=== PATIENT | male | born 1960 | race Caucasian/White ===

== ENCOUNTER 2023-03-30 13:13 | Outpatient (OUT) | payer BC, SELFPAY ==
--- NOTE | 2023-03-30 13:17 | XR_ITS ---
The [address] [address] Patient Name: ALLYSON FARMER MRN: [id number] date: 1960 Sex: M Assigned Patient Location: [facility] Current Patient Location: [facility] Accession/Order Number: [id number] Exam Date: 03/30/2023 13:25 Report Date: 03/30/2023 13:41 At the request of: TOBIN WHEATLEY Procedure: XR chest 2V EXAM: XR chest 2V HISTORY: Shortness Of Breath R06.02 COMPARISON: None. TECHNIQUE: PA and lateral views of the chest. FINDINGS: The cardiomediastinal silhouette is normal. No focal consolidation is identified. There is no pneumothorax. No pleural effusion is noted. The osseous structures are intact. XR/XR chest 2V IMPRESSION: No acute cardiopulmonary process. Electronically authenticated by: SRAVANI TERRAZAS Date: 03/30/2023 13:41
== END 2023-03-30 13:14 | disposition home or self-care (01) ==
LOC: RAD 13:13
PROVIDERS: PCP Internal Medicine; Visit Provider Internal Medicine
DX: R06.02 Shortness of breath (principal)
CPT/HCPCS: 71046

== ENCOUNTER 2023-04-20 08:28 | Outpatient (OUT) | payer BC, SELFPAY ==
--- NOTE | 2023-04-20 08:32 | CT_ITS ---
[address] [address] Patient Name: ALLYSON FARMER MRN: [id number] date: 1960 Sex: M Assigned Patient Location: CT Current Patient Location: CT Accession/Order Number: [id number] Exam Date: 04/20/2023 08:50 Report Date: 04/20/2023 09:48 At the request of: TOBIN WHEATLEY Procedure: CT chest w con EXAM: CT chest w con HISTORY: Dyspnea On Exertion R06.09, Tobacco Dependence F17.200 COMPARISON: 03/30/2023 TECHNIQUE: Axial CT images were obtained of the chest with intravenous contrast. Multiplanar reconstructions were performed. CHEST FINDINGS: Lungs/Pleura: The lungs are clear. No pleural effusion or pneumothorax. Cardiovascular: The heart is normal in size. Mild coronary artery calcifications are present. The aorta and pulmonary arteries are unremarkable. Pericardium: No effusion. Mediastinum: Unremarkable. Lymph Nodes: No lymph node enlargement by CT size criteria. Bones: No acute osseous abnormality. Soft tissues: Unremarkable. Upper Abdomen: Unremarkable. CT/CT chest w con IMPRESSION: 1. No acute abnormality of the chest. Electronically authenticated by: CYRIL KC Date: 04/20/2023 09:48
== END 2023-04-20 08:29 | disposition home or self-care (01) ==
LOC: CT 08:28
PROVIDERS: PCP Internal Medicine; Visit Provider Internal Medicine
DX: R06.09 Other forms of dyspnea (principal); F17.200 Nicotine dependence, unspecified, uncomplicated; U09.9 Post COVID-19 condition, unspecified
CPT/HCPCS: 71260; Q9967

== ENCOUNTER 2024-06-27 09:33 | Inpatient (IN) | payer BC, SELFPAY ==
[2024-06-27] VITALS (39 sets, daily range): BP systolic 147–183; BP diastolic 79–89; PULSE 68–90; TEMP 36.5–36.7; O2SAT 82–96; BMI 32.9; BMI 35.8
--- NOTE | 2024-06-27 10:04 | ECG_ITS ---
The [facility] Test Date: 2024-06-27 Pat Name: ALLYSON FARMER Department: Room: - Gender: Male Topographical Engineer: : 1960 Requested By: TOBIN WHEATLEY Order Number: [id number] Reading MD: TOBIN WHEATLEY Measurements Intervals [place] Rate: 73 P: 78 AL: 178 QRS: -34 QRSD: 98 T: 82 QT: 394 QTc: 420 Interpretive Statements 1100 Sinus rhythm 2440 Incomplete right bundle branch block 3434 Septal myocardial infarction, age undetermined 7300 Indeterminate axis 9150 abnormal ECG Electronically Signed On 06-27-2024 22:55:43 EST by TOBIN WHEATLEY
--- NOTE | 2024-06-27 10:08 | ED_ITS ---
HPI HPI - General Adult General Chief complaint: Chest Pain Stated complaint: chest hurts, sore throat Time Seen by Provider: 06/27/24 09:45 Source: patient Source information: Mode of arrival: Wheelchair Limitations: no limitations History of Present Illness HPI narrative: The patient is a very pleasant 64-year-old male who presents to the emergency department his secondary to a cough. He has a known past medical history of hypercholesterolemia, COPD, and tobacco abuse. He presents today for chest pain. Chest pain has been present for approximately 3 days. His symptoms originally started with a sore throat and has progressed to a cough associated with chest pain. He feels constriction when he tries to take a deep breath. Exertion makes it worse. Nothing makes it better. He is trying Mucinex at home without any relief. Patient has no known history of coronary artery disease. He does not have hypertension or diabetes. Patient does not have any nausea or diaphoresis. No radiation of the pain which appears to be all over the anterior chest wall. It is mild to moderate in sensation. Coughing makes the pain more constricting. Patient does still smoke. Sent him for COVID yesterday and today and both times they were negative. Related Data Home Medications ?Medication ?Instructions ?Recorded ?Confirmed doxycycline hyclate 100 mg capsule 100 mg PO Q12H 06/27/24 06/27/24 esomeprazole magnesium 40 mg 40 mg PO Q24H 06/27/24 06/27/24 capsule,delayed release fluticasone 250 mcg-salmeterol 50 1 inh inhalation Q12H 06/27/24 06/27/24 mcg/dose blistr powdr for inhalation tamsulosin 0.4 mg capsule 0.4 mg PO Q24H 06/27/24 06/27/24 Allergies Allergy/AdvReac Type Severity Reaction Status Date / Time ciprofloxacin (From Cipro) AdvReac Intermediate Unknown Verified 06/27/24 09:50 moxifloxacin (From Avelox) AdvReac Intermediate Unknown Verified 06/27/24 09:50 Opioid HPI Opioid Management Most Recent Opioid Data: Last Pain Scale 1 06/27/24 12:01 06/27/24 Last ED Pain Assessment 06/27/24 10:01 Last MAR Pain Assessment 06/27/24 10:21 Review of Systems ROS Narrative 10 Systems were reviewed, and unless not ed in the HPI, all other systems are reviewed, unremarkable, or noncontributory. PFSH PFSH Social History Little interest or pleasure in doing things: not at all Feeling down, depressed, or hopeless: not at all Exam Narrative Exam Narrative: Time Seen: 09:45 Vital Signs: [Per nurse's notes.] General: [Alert oriented. Nontoxic. No acute distress. Skin: [Warm, dry, no rash.] Head: [Normocephalic, atraumatic.] Neck: [Supple, trachea midline. No cervical lymphadenopathy Eye: [Pupils are equal, round and reactive to light, extraocular movements are intact, normal conjunctiva.] Ears, nose, mouth and throat: oral mucosa moist. No evidence of posterior oropharyngeal erythema, edema, or exudate. Cardiovascular: [Regular rate and rhythm, no murmur.] Respiratory: Stational dyspnea. He has poor lung sounds in the bases. He has an expiratory wheezing in the left lung huerta. Chest wall: [No tenderness, no deformity.] Gastrointestinal: [Soft, nontender, non distended, normal bowel sounds. I MSK: 5 out of 5 muscle strength x 4 extremities no calf pain or edema Lymphatics: [No lymphadenopathy.] Psychiatric: [Cooperative, appropriate mood & affect.] Neurological: [Alert and oriented to person, place, time, and situation, no focal neurological deficit observed.] Constitutional Vital Signs, click to edit/add: Last Vital Signs Temp 97.7 F 06/27/24 09:45 Pulse 72 06/27/24 13:00 Resp 17 06/27/24 13:00 BP 161/85 H 06/27/24 13:00 Pulse Ox 93 L 06/27/24 13:00 O2 Del Method Nasal Cannula 06/27/24 12:01 O2 Flow Rate 1 06/27/24 12:01 Course Course Hospital Course: 64-year-old gentleman presents to the emerged part with his for evaluation of cough and chest pain. Patient has been ill for approximately 3 days. He has no known history of coronary artery disease and no PE risk factors. Patient's had a subjective fever this morning associated with an occasionally productive cough with yellow sputum. He was driven to the emergency department with his who provides additional history. Patient does have a known history of COPD and continues to smoke. Upon seeing the patient, I was concerned that the patient may have sepsis since he meets criteria. Therefore, I ordered the sepsis 1 bundle. Patient received Rocephin and azithromycin antibiotic therapy. He also received a nebulized breathing treatment and magnesium 2 g IV piggyback with a liter normal saline bolus. Reevaluation(s) Reevaluation #1: Reevaluated the patient. He does feel that the breathing treatment did help him. He no longer feels like his chest is tight since the treatment. The patient states he feels a little better. tells me that when he is laying that he seems to be doing okay as when he gets up and ambulates that there is a problem. Even having said that at rest he was 86% when he came to the emergency department. The patient is still receiving his antibiotic therapy and fluids. Will continue to monitor the patient but I did tell the patient that my inclination was to admit the patient. Patient does have some reservation about being admitted. His tells me at 5 AM he woke her up and told her he thought she was going to . I am hopeful that the patient will agree to be admitted given his present presentation. Time: 11:24 Reevaluation #2: I chatted again with the patient and his . All of his antibiotics and fluids are completed. Patient still requiring nasal cannula oxygen. Patient is finally consenting to staying in the hospital. The hospitalist is paged. Time: 12:58 Consultations Consultation #1: Hospitalist Dr. Johnson about the condition of this patient. He agreed to accept. Time: 13:10 Vital Signs Vital signs: Vital Signs Temperature 97.7 F 06/27/24 09:45 Pulse Rate 79 06/27/24 09:45 Respiratory Rate 18 06/27/24 09:45 Blood Pressure 183/87 H 06/27/24 09:45 Pulse Oximetry 86 L 06/27/24 09:45 Oxygen Delivery Method Room Air 06/27/24 09:45 Temperature 97.7 F 06/27/24 09:45 Pulse Rate 72 06/27/24 13:00 Respiratory Rate 17 06/27/24 13:00 Blood Pressure 161/85 H 06/27/24 13:00 Pulse Oximetry 93 L 06/27/24 13:00 Oxygen Delivery Method Nasal Cannula 06/27/24 12:01 Oxygen Delivery Flow Rate 1 06/27/24 12:01 Medical Decision Making MDM Narrative Medical decision making narrative: The patient is a very pleasant 64-year-old male who presents to the emergency department his secondary to a cough. He has a known past medical history of hypercholesterolemia, COPD, and tobacco abuse. He presents today for chest pain. Chest pain has been present for approximately 3 days. His symptoms originally started with a sore throat and has progressed to a cough associated with chest pain. He feels constriction when he tries to take a deep breath. Exertion makes it worse. Nothing makes it better. He is trying Mucinex at home without any relief. Patient has no known history of coronary artery disease. He does not have hypertension or diabetes. Patient does not have any nausea or diaphoresis. No radiation of the pain which appears to be all over the anterior chest wall. It is mild to moderate in sensation. Coughing makes the pain more constricting. Patient does still smoke. Sent him for COVID yesterday and today and both times they were negative. History of Latent TB. He is not on any type of immune therapy or immune suppressive agents. There was no evidence of any type of TB on x-ray. The patient was given Solu-Medrol, magnesium, IV fluids, Rocephin, and Zith romax. The patient was reassessed and the patient did have some mild improvement but still is necessitating the need of nasal cannula oxygen and remains hypoxic. Patient's chest x-ray was negative. Patient's viral swabs were negative. I did not repeat the COVID given that the patient had 2 negative COVID swabs in less than 24 hours prior to arrival. Patient at this time is going to be admitted for COPD exacerbation. Patient does meet sepsis criteria and also is hypoxic. Differential Diagnosis Differential Diagnosis: Sepsis, pneumonia, COPD exacerbation, bronchitis, RSV, influenza, COVID Medical Records Medical records reviewed: Yes I reviewed the patient's medical records Lab Data Lab results reviewed: Yes I reviewed the patient's lab results Labs: Lab Results 06/27/24 06/27/24 Range/Units 09:55 11:47 WBC 13.1 H (4.0-11.0) 10^3/uL RBC 5.21 (4.70-6.10) 10^6/uL Hgb 16.8 (14.0-18.0) g/dL Hct 49.4 (42.0-54.0) % MCV 94.8 H (80.0-94.0) fL MCH 32.2 (25.9-34.0) pg MCHC 34.0 (29.9-35.2) g/dL RDW 14.6 (11.0-15.0) % Plt Count 234 (150-450) 10^3/uL MPV 9.8 (9.5-13.5) fL Neut % (Auto) 79.4 H (43.0-75.0) % Lymph % (Auto) 9.3 L (20.5-60.0) % [place] % (Auto) 9.2 (1.7-12.0) % Eos % (Auto) 1.1 (0.9-7.0) % Baso % (Auto) 0.7 (0.2-2.0) % Neut # (Auto) 10.4 H (1.4-6.5) 10^3/uL Lymph # (Auto) 1.2 (1.2-3.8) 10^3/uL [place] # (Auto) 1.2 H (0.3-0.8) 10^3/uL Eos # (Auto) 0.2 (0.0-0.7) 10^3/uL Baso # (Auto) 0.1 (0.0-0.1) 10^3/uL Abs Immat Gran (auto) 0.04 H (0.00-0.03) 10^3/uL Imm/Tot Granulo (auto) 0.3 (0.0-0.5) % Sodium 140 (136-145) mmol/L Potassium 4.6 (3.5-5.1) mmol/L Chloride 105 (98-107) mmol/L Carbon Dioxide 25.9 (21.0-32.0) mmol/L Anion Gap 13.7 BUN 17.0 (7.0-18.0) mg/dL Creatinine 1.20 (0.70-1.30) mg/dL Est GFR ( Amer) >60 (>=60 mL/min/1.73m^2) Est GFR (Non-Af Amer) >60 (>=60 mL/min/1.73m^2) BUN/Creatinine Ratio 14.2 Glucose 118 H (74-106) mg/dL Lactate 1.4 (0.4-2.0) mmol/L Calcium 9.3 (8.5-10.1) mg/dL Magnesium 2.2 (1.8-2.4) mg/dL Total Bilirubin 0.5 (0.2-1.0) mg/dL AST 18 (15-37) U/L ALT 22 (16-63) U/L Alkaline Phosphatase 74 (46-116) U/L Troponin I High Sens 10.4 (4.0-76.1) pg/mL Total Protein 7.6 (6.4-8.2) g/dL Albumin 3.8 (3.4-5.0) g/dL Globulin 3.8 g/dL Albumin/Globulin Ratio 1.0 Influenza Type A Ag Negative Influenza Type B Ag Negative RSV Antigen Not detected (NOT DETECTE) Imaging Data Chest x-ray: Attestation: I have reviewed the pertinent imaging results. Radiologist's impression: ITS Impressions Chest X-Ray 06/27/24 10:35 Impression: No radiographic evidence of acute cardiopulmonary process. Electronically authenticated by: LAWRENCE JAIMES Date: 06/27/2024 11:26 ECG Data Attestation: I personally reviewed and interpreted this ECG as follows: (Sinus rhythm with a ventricular to 73 bpm. The MD interval and QRS duration are normal. QTc is not prolonged. Poor R wave progression in the septal leads. No evidence of ST segment elevation or depression suggestive of infarction or ischemia. Summary: Nonspecific EKG.) Smoking Cessation Patient Acknowledges Need for Cessation: Yes Discharge Plan Discharge Chief Complaint: Chest Pain Clinical Impression: Sepsis, COPD exacerbation, Hypoxia Patient Disposition: Admitted As Inpatient Time of Disposition Decision: 12:54 Condition: Fair
[2024-06-27] MEDS: KETOROLAC TROMETHAMINE 30 MG/ML VIAL 15 MG IVP (10:21)
[2024-06-27] MEDS: 0.9 % SODIUM CHLORIDE 1,000 ML 1000 ML IV (10:21)
--- NOTE | 2024-06-27 10:35 | XR_ITS ---
The [address] [address] Patient Name: ALLYSON FARMER MRN: [id number] date: 1960 Sex: M Assigned Patient Location: ER Current Patient Location: ER Accession/Order Number: [id number] Exam Date: 06/27/2024 10:20 Report Date: 06/27/2024 11:26 At the request of: ZURI MAJOR Procedure: XR chest 1V EXAM: XR chest 1V HISTORY: cough, chest pain COMPARISON: 04/20/2023 TECHNIQUE: Chest X-ray AP, 1 view FINDINGS: Support devices: None. Lungs/pleura: No consolidation, effusion, or pneumothorax. Heart and mediastinum: Normal contours. Bones: No acute abnormality identified. XR/XR chest 1V Impression: No radiographic evidence of acute cardiopulmonary process. Electronically authenticated by: LAWRENCE JAIMES Date: 06/27/2024 11:26
[2024-06-27 10:36] LABS: Basophils Absolute Auto 0.1 10^3/uL (0.0-0.1); Basophils Percent Auto 0.7 % (0.2-2.0); Eosinophils Absolute Auto 0.2 10^3/uL (0.0-0.7); Eosinophils Percent Auto 1.1 % (0.9-7.0); Hematocrit 49.4 % (42.0-54.0); Hemoglobin 16.8 g/dL (14.0-18.0); Immature Granulocytes Abs Auto 0.04 10^3/uL (0.00-0.03); Immature Granulocytes Pct Auto 0.3 % (0.0-0.5); Lymphocytes Absolute Auto 1.2 10^3/uL (1.2-3.8); Lymphocytes Percent Auto 9.3 % (20.5-60.0); Mean Corpuscular Hemoglobin 32.2 pg (25.9-34.0); Mean Corpuscular Volume 94.8 fL (80.0-94.0); Mean Platelet Volume 9.8 fL (9.5-13.5); Monocytes Absolute Auto 1.2 10^3/uL (0.3-0.8); Monocytes Percent Auto 9.2 % (1.7-12.0); Neutrophils Absolute Auto 10.4 10^3/uL (1.4-6.5); Neutrophils Percent Auto 79.4 % (43.0-75.0); Platelet Count 234 10^3/uL (150-450); Red Blood Count 5.21 10^6/uL (4.70-6.10); Red Cell Distribution Width 14.6 % (11.0-15.0); White Blood Count 13.1 10^3/uL (4.0-11.0)
[2024-06-27] MEDS: IPRATROPIUM/ALBUTEROL SULFATE 3 ML AMPUL.NEB IH ×3 (10:45→22:19)
[2024-06-27] MEDS: CEFTRIAXONE 1,000 MG in 0.9 % SODIUM CHLORIDE 50 ML 100 MG IV (10:47)
[2024-06-27] MEDS: METHYLPREDNISOLONE SOD SUCC PF 125 MG/2 ML VIAL IVP (10:47)
[2024-06-27 10:50] LABS: Anion Gap 13.7
[2024-06-27 10:52] LABS: Alanine Aminotransferase 22 U/L (16-63); Albumin Level 3.8 g/dL (3.4-5.0); Alkaline Phosphatase 74 U/L (46-116); Aspartate Amino Transferase 18 U/L (15-37); BUN Creatinine Ratio 14.2; Bilirubin Total 0.5 mg/dL (0.2-1.0); Calcium 9.3 mg/dL (8.5-10.1); Carbon Dioxide 25.9 mmol/L (21.0-32.0); Chloride 105 mmol/L (98-107); Estimated GFR (African America >60 (>=60 mL/min/1.73m^2); Estimated GFR (Non-African Ame >60 (>=60 mL/min/1.73m^2); Globulin 3.8 g/dL; Glucose 118 mg/dL (74-106); Lactate/Lactic Acid 1.4 mmol/L (0.4-2.0); Magnesium 2.2 mg/dL (1.8-2.4); Potassium 4.6 mmol/L (3.5-5.1); Sodium 140 mmol/L (136-145); Total Protein 7.6 g/dL (6.4-8.2); Troponin I High Sensitivity 10.4 pg/mL (4.0-76.1)
[2024-06-27] MEDS: AZITHROMYCIN 500 MG in 0.9 % SODIUM CHLORIDE 250 ML 250 MG IV (11:17)
[2024-06-27 12:22] LABS: Influenza Virus A Antigen Negative; Influenza Virus B Antigen Negative; Internal Control Within Normal Limits; Respiratory Syncytial Virus Not Detected (NOT DETECTE)
[2024-06-27 12:23] LABS: Internal Control Within Normal Limits
--- NOTE | 2024-06-27 15:23 | PM.HP ---
HPI H&P: HPI History of Present Illness Chief complaint: chest hurts, sore throat, COPD EXACERBATION Narrative: 64-year-old male with history of COPD presented to ER with 1 day history of productive cough, shortness of breath with wheezing. He was in his usual state of health before he got sick. He denies fever, chills or sick contacts. He has not had any recent COPD exacerbation. Uses Wixela for COPD. In ER, he was found to have increased work of breathing with tachypnea and hypoxia with pulse ox as low as 85%. He tested negative for influenza and RSV. He had 2 negative home test for COVID. No evidence of consolidation or pneumonia on chest x-ray. He was treated with IV Solu-Medrol, inhaled DuoNebs and empirical IV antibiotics -IV Rocephin and azithromycin. Patient admitted for COPD exacerbation and acute respiratory failure with hypoxia. Opioid HPI Opioid Management Most Recent Pain and Opioid Data: Last Pain Scale 1 06/27/24 12:01 06/27/24 Last Pain Assessment 06/27/24 14:55 Last ED Pain Assessment 06/27/24 10:01 Last MAR Pain Assessment 06/27/24 10:21 Last ORT Total Score 0 06/27/24 13:47 06/27/24 Last ORT Risk Category Low Risk 06/27/24 13:47 06/27/24 Review of Systems ROS Status of ROS 10 or more systems reviewed and unremarkable except as noted in history and below [facility] Medical History (Updated 06/27/24 @ 15:24 by Shaikh Alex MD) COPD (chronic obstructive pulmonary disease) ?J44.9 - Chronic obstructive pulmonary disease, unspecified (ICD-10) Diarrhea ?R19.7 - Diarrhea, unspecified (ICD-10) Constipation ?K59.00 - Constipation, unspecified (ICD-10) Surgical History (Updated 06/27/24 @ 14:08 by Alexia Duarte) History of appendectomy ?Z90.49 - Acquired absence of other specified parts of digestive tract (ICD-10) Family History (Updated 06/27/24 @ 14:52 by Alexia Duarte) Mother Family history of colon cancer Father Family history of leukemia Other Family history of cancer Family history of stroke Social History (Updated 06/27/24 @ 14:55 by Alexia Duarte) Within the past year, how often did you have a drink containing alcohol: 2-3 times a week Within the past year, how many standard drinks containing alcohol did you have on a typical day: 5 or 6 Within the past year, how often did you have six or more drinks on one occasion: weekly Total score: 7 Score interpretation: A score of 4 or more indicates drinking is likely to affect patient's safety. 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 Highest level of school completed/degree received: high school graduate Do you want help with school or training: No Are you now , , , , never or living with a partner: In a typical week, how many times do you talk on the telephone with family, friends, or neighbors: 3 or more times per week How often do you get together with friends or relatives: 3 or more times per week How often do you attend sikh or mormonism services: never Do you belong to any clubs or organizations such as sikh groups unions, [employer] or athletic groups, or school groups: no Total score: 2 Score interpretation: A score of greater than or equal to 2 indicates the lowest level of social isolation. Little interest or pleasure in doing things: not at all Feeling down, depressed, or hopeless: several days Feel stressed/tense/nervous/anxious/difficulty sleeping: not at all Due to disability, difficulty making decisions: No Do you think of yourself as: straight/heterosexual Gender Identity: male Meds Home Medications and Allergies Home Medications ?Medication ?Instructions ?Recorded ?Confirmed ?Type doxycycline hyclate 100 mg capsule 100 mg PO Q12H 06/27/24 06/27/24 History esomeprazole magnesium 40 mg 40 mg PO Q24H 06/27/24 06/27/24 History capsule,delayed release fluticasone 250 mcg-salmeterol 50 1 inh inhalation Q12H 06/27/24 06/27/24 History mcg/dose blistr powdr for inhalation tamsulosin 0.4 mg capsule 0.4 mg PO Q24H 06/27/24 06/27/24 History Allergies Allergy/AdvReac Type Severity Reaction Status Date / Time ciprofloxacin (From Cipro) AdvReac Intermediate Unknown Verified 06/27/24 09:50 moxifloxacin (From Avelox) AdvReac Intermediate Unknown Verified 06/27/24 09:50 Exam Constitutional Vital Signs, click to edit/add: Last Vital Signs Temp 98.1 F 06/27/24 13:47 Pulse 77 06/27/24 14:00 Resp 20 06/27/24 13:47 BP 160/85 H 06/27/24 13:47 Pulse Ox 90 L 06/27/24 13:47 O2 Del Method Nasal Cannula 06/27/24 13:47 O2 Flow Rate 2 06/27/24 13:47 Documenting provider has reviewed patient's vital signs: yes Common normals: oriented x3 General appearance: cooperative Nutritional appearance: obese HENMT Common normals: normocephalic and head/scalp atraumatic Head and scalp: normocephalic and atraumatic Eye Common normals: conjunctivae normal and no scleral icterus Conjunctiva: conjunctiva(e) normal Respiratory Common normals: normal respiratory effort Effort & inspection: able to speak in complete sentences and tachypneic Auscultation: wheezes expiratory wheezes and bronchial breath sounds Cardio Common normals: regular rate, S1 normal heart sound and S2 normal heart sound Rate: regular rate Heart sounds: S1 normal and S2 normal GI Common normals: Normal to inspection, nondistended, normoactive bowel sounds present, soft to palpation, non-tender and no hepatosplenomegaly Palpation: soft and no hepatosplenomegaly Extremity Common normals: no clubbing, cyanosis or edema Neuro Common normals: oriented x3, moves all extremities and no focal motor deficits Psych Common normals: mental status grossly normal, denies hallucinations, denies homicidal ideation and denies suicidal ideation Results Labs Labs: Short CBC 06/27/24 Range/Units 09:55 WBC 13.1 H (4.0-11.0) 10^3/uL Hgb 16.8 (14.0-18.0) g/dL Hct 49.4 (42.0-54.0) % Plt Count 234 (150-450) 10^3/uL BMP 06/27/24 09:55 Sodium 140 Potassium 4.6 Chloride 105 Carbon Dioxide 25.9 BUN 17.0 Creatinine 1.20 Glucose 118 H Calcium 9.3 Liver Function 06/27/24 Range/Units 09:55 Total Bilirubin 0.5 (0.2-1.0) mg/dL AST 18 (15-37) U/L ALT 22 (16-63) U/L Alkaline Phosphatase 74 (46-116) U/L Albumin 3.8 (3.4-5.0) g/dL Assessment and Plan Assessment and Plan (1) COPD exacerbation: Assessment and Plan: COPD exacerbation likely due to viral illness. Start patient on IV Solu-Medrol 40 3 times daily along with inhaled DuoNebs. No evidence of pneumonia on chest x-ray. Will order azithromycin for COPD exacerbation. (2) Acute respiratory failure with hypoxia: Assessment and Plan: 85% on room air. Doing well on 2 L of oxygen via nasal cannula. Secondary to COPD exacerbation. Does not use oxygen at home. Wean off oxygen as heart rate. (3) Leukocytosis: Assessment and Plan: Leukocytosis likely reactive. No evidence of pneumonia on chest x-ray. Monitor closely for now. On azithromycin for COPD exacerbation. Received IV Rocephin in ER for presumed bacterial pneumonia Qualifiers: Leukocytosis type: leukemoid reaction Qualified Code(s): D72.823 - Leukemoid reaction Plan Continue with IV Solu-Medrol, inhaled DuoNebs. Wean off oxygen as tolerated. Admitted for overnight observation.
[2024-06-27] MEDS: LACTATED RINGER'S SOLUTION 1,000 ML 125 ML IV ×2 (15:54→23:56)
[2024-06-27] MEDS: ENOXAPARIN SODIUM 40 MG/0.4 ML SYRINGE SUBQ (15:54)
[2024-06-27] MEDS: METHYLPREDNISOLONE SOD SUCC PF 40 MG/ML VIAL IVP (17:31)
--- NOTE | 2024-06-27 22:33 | RESP.RT ---
increased to 4 lpm
[2024-06-28] VITALS (21 sets, daily range): BP systolic 142–164; BP diastolic 69–87; PULSE 68–82; TEMP 36.7–36.9; O2SAT 90–95; BMI 35.8
[2024-06-28] MEDS: METHYLPREDNISOLONE SOD SUCC PF 40 MG/ML VIAL IVP ×3 (03:36→17:55)
[2024-06-28] MEDS: IPRATROPIUM/ALBUTEROL SULFATE 3 ML AMPUL.NEB IH ×4 (04:06→22:25)
[2024-06-28 06:42] LABS: Basophils Percent Auto 0.1 % (0.2-2.0); Eosinophils Percent Auto 0.1 % (0.9-7.0); Hematocrit 46.3 % (42.0-54.0); Hemoglobin 15.6 g/dL (14.0-18.0); Immature Granulocytes Abs Auto 0.11 10^3/uL (0.00-0.03); Immature Granulocytes Pct Auto 0.6 % (0.0-0.5); Lymphocytes Absolute Auto 0.8 10^3/uL (1.2-3.8); Lymphocytes Percent Auto 4.3 % (20.5-60.0); Mean Corpuscular HGB Conc 33.7 g/dL (29.9-35.2); Mean Corpuscular Hemoglobin 31.7 pg (25.9-34.0); Mean Corpuscular Volume 94.1 fL (80.0-94.0); Monocytes Percent Auto 5.9 % (1.7-12.0); Neutrophils Absolute Auto 15.4 10^3/uL (1.4-6.5); Platelet Count 219 10^3/uL (150-450); Red Blood Count 4.92 10^6/uL (4.70-6.10); Red Cell Distribution Width 14.6 % (11.0-15.0); White Blood Count 17.3 10^3/uL (4.0-11.0)
[2024-06-28 07:03] LABS: Alanine Aminotransferase 20 U/L (16-63); Albumin Globulin Ratio 0.9; Albumin Level 3.3 g/dL (3.4-5.0); Alkaline Phosphatase 63 U/L (46-116); Anion Gap 14.4; Aspartate Amino Transferase 19 U/L (15-37); BUN Creatinine Ratio 13.4; Bilirubin Total 0.3 mg/dL (0.2-1.0); Calcium 8.8 mg/dL (8.5-10.1); Carbon Dioxide 23.3 mmol/L (21.0-32.0); Chloride 109 mmol/L (98-107); Estimated GFR (African America >60 (>=60 mL/min/1.73m^2); Estimated GFR (Non-African Ame >60 (>=60 mL/min/1.73m^2); Globulin 3.5 g/dL; Glucose 135 mg/dL (74-106); Potassium 4.7 mmol/L (3.5-5.1); Sodium 142 mmol/L (136-145); Total Protein 6.8 g/dL (6.4-8.2)
[2024-06-28] MEDS: LACTATED RINGER'S SOLUTION 1,000 ML 125 ML IV (08:04)
--- NOTE | 2024-06-28 08:05 | CT_ITS ---
[address] [address] Patient Name: ALLYSON FARMER MRN: [id number] date: 1960 Sex: M Assigned Patient Location: MS Current Patient Location: MS Accession/Order Number: [id number] Exam Date: 06/28/2024 08:50 Report Date: 06/28/2024 10:13 At the request of: SHAIKH BEATRIZ Procedure: CT chest wo con EXAMINATION: CT chest wo con HISTORY: Pneumonia COMPARISON: No relevant comparison available. TECHNIQUE: Multi-planar CT images were created with IV contrast. Axial, Coronal, and Sagittal images. Dose reduction techniques were achieved by using automated exposure control and/or adjustment of mA and/or kV according to patient size and/or use of iterative reconstruction technique. FINDINGS: LUNGS: Bilateral scattered groundglass infiltrates throughout both lungs with an upper lobe predominance PLEURA: No mass, effusion, or pneumothorax. VASCULATURE: No abnormality. IDALIA: No mass or adenopathy. MEDIASTINUM: No mass or adenopathy. CARDIAC: No enlargement or pericardial effusion Coronary arteries: Mild calcifications AORTA: No aortic aneurysm CHEST WALL: No mass or axillary adenopathy. BONES: No bone lesion or fracture. LIMITED ABDOMEN: No suspicious findings. Limited images of the upper abdomen. OTHER: Negative. CT/CT chest wo con IMPRESSION: Mild multifocal bilateral pneumonia Electronically authenticated by: TERRA GUNTER Date: 06/28/2024 10:13
[2024-06-28] MEDS: AZITHROMYCIN 250 MG TABLET 500 MG PO (09:50)
[2024-06-28] MEDS: ENOXAPARIN SODIUM 40 MG/0.4 ML SYRINGE SUBQ (09:50)
--- NOTE | 2024-06-28 10:30 | CM.NOTE ---
Rounds made with Dr. Johnson. Dr. Johnson reviews plan of care-CT chest ordered, lab results and need for increased oxygen. No plan for discharge today.
[2024-06-28] MEDS: CEFTRIAXONE 1,000 MG in 0.9 % SODIUM CHLORIDE 50 ML 100 MG IV (10:34)
--- NOTE | 2024-06-28 10:47 | PM.IMPN1 ---
Progress Note: A&P Assessment and Plan (1) COPD exacerbation: Assessment and Plan: Worse today, on 4 L O2. C/w solumedrol, duonebs. C/w OPEP. (2) Acute respiratory failure with hypoxia: Assessment and Plan: Worse today. O2 requirement increased to [address] chest - multifocal pna seen on CT. Started on rocephin. already on azithromycin (3) Leukocytosis: Assessment and Plan: Worse, but this could be due to steroids too. Started on IVF abx for multifocal pna. Qualifiers: Leukocytosis type: leukemoid reaction Qualified Code(s): D72.823 - Leukemoid reaction (4) Multifocal pneumonia: Assessment and Plan: Multifocal pna on CT chest. Started on IV rocephin. C/w azithromycin Plan Changed to inpatient, as patient's clinical status worsened, with increased O2 requirement, after an initial period of observation and treatment with Abx, steroids and duonebs. Internal Medicine - PN: Subj Subjective Interval history: Seen and examined. Patient worse today, on 4 L O2. Pulse Ox was 88,89 on 2 L. He reports he is coughing more and his cough is productive with green sputum Exam Constitutional Vital Signs, click to edit/add: Last Vital Signs Temp 98.1 F 06/28/24 07:48 Pulse 76 06/28/24 10:00 Resp 18 06/28/24 07:48 BP 155/73 H 06/28/24 07:48 Pulse Ox 93 L 06/28/24 07:48 O2 Del Method Nasal Cannula 06/28/24 07:48 O2 Flow Rate 4 06/28/24 04:06 FiO2 4 06/28/24 07:48 Documenting provider has reviewed patient's vital signs: yes Common normals: oriented x3 General appearance: cooperative Nutritional appearance: obese Respiratory Common normals: normal respiratory effort Effort & inspection: able to speak in complete sentences and tachypneic Auscultation: wheezes expiratory wheezes and bronchial breath sounds Cardio Common normals: regular rate, S1 normal heart sound and S2 normal heart sound Rate: regular rate Heart sounds: S1 normal and S2 normal Extremity Common normals: no clubbing, cyanosis or edema Neuro Common normals: oriented x3, moves all extremities and no focal motor deficits Psych Common normals: mental status grossly normal, denies hallucinations, denies homicidal ideation and denies suicidal ideation Internal Medicine - PN: Obj Da Labs Labs: Laboratory Results - last 24 hr 06/27/24 06/27/24 06/28/24 09:55 11:47 06:02 WBC 17.3 H RBC 4.92 Hgb 15.6 Hct 46.3 MCV 94.1 H MCH 31.7 MCHC 33.7 RDW 14.6 Plt Count 219 MPV 10.0 Neut % (Auto) 89.0 H Lymph % (Auto) 4.3 L [place] % (Auto) 5.9 Eos % (Auto) 0.1 L Baso % (Auto) 0.1 L Neut # (Auto) 15.4 H Lymph # (Auto) 0.8 L [place] # (Auto) 1.0 H Eos # (Auto) 0.0 Baso # (Auto) 0.0 Abs Immat Gran (auto) 0.11 H Imm/Tot Granulo (auto) 0.6 H Sodium 140 142 Potassium 4.6 4.7 Chloride 105 109 H Carbon Dioxide 25.9 23.3 Anion Gap 13.7 14.4 BUN 17.0 15.0 Creatinine 1.20 1.12 Est GFR ( Amer) >60 >60 Est GFR (Non-Af Amer) >60 >60 BUN/Creatinine Ratio 14.2 13.4 Glucose 118 H 135 H Lactate 1.4 Calcium 9.3 8.8 Magnesium 2.2 Total Bilirubin 0.5 0.3 AST 18 19 ALT 22 20 Alkaline Phosphatase 74 63 Troponin I High Sens 10.4 Total Protein 7.6 6.8 Albumin 3.8 3.3 L Globulin 3.8 3.5 Albumin/Globulin Ratio 1.0 0.9 Influenza Type A Ag Negative Influenza Type B Ag Negative RSV Antigen Not detected
[2024-06-28] MEDS: LISINOPRIL/HYDROCHLOROTHIAZIDE 20-12.5 MG TABLET 1 TAB PO (16:07)
[2024-06-28] MEDS: TEMAZEPAM 15 MG CAPSULE PO (19:10)
[2024-06-29] VITALS (15 sets, daily range): BP systolic 132–137; BP diastolic 73–77; PULSE 64–84; TEMP 36.9; O2SAT 83–96
[2024-06-29] MEDS: METHYLPREDNISOLONE SOD SUCC PF 40 MG/ML VIAL IVP ×2 (03:23→09:34)
[2024-06-29] MEDS: IPRATROPIUM/ALBUTEROL SULFATE 3 ML AMPUL.NEB IH ×2 (04:18→10:08)
--- NOTE | 2024-06-29 04:24 | RESP.RT ---
Titrated to 2 lpm
[2024-06-29 06:08] LABS: Basophils Percent Auto 0.1 % (0.2-2.0); Eosinophils Percent Auto 0.1 % (0.9-7.0); Hematocrit 43.3 % (42.0-54.0); Hemoglobin 14.6 g/dL (14.0-18.0); Immature Granulocytes Abs Auto 0.06 10^3/uL (0.00-0.03); Immature Granulocytes Pct Auto 0.4 % (0.0-0.5); Lymphocytes Absolute Auto 1.1 10^3/uL (1.2-3.8); Lymphocytes Percent Auto 7.4 % (20.5-60.0); Mean Corpuscular HGB Conc 33.7 g/dL (29.9-35.2); Mean Platelet Volume 10.2 fL (9.5-13.5); Monocytes Absolute Auto 1.1 10^3/uL (0.3-0.8); Monocytes Percent Auto 6.9 % (1.7-12.0); Neutrophils Absolute Auto 13.2 10^3/uL (1.4-6.5); Neutrophils Percent Auto 85.1 % (43.0-75.0); Platelet Count 209 10^3/uL (150-450); Red Blood Count 4.56 10^6/uL (4.70-6.10); White Blood Count 15.5 10^3/uL (4.0-11.0)
[2024-06-29 06:28] LABS: Alanine Aminotransferase 23 U/L (16-63); Albumin Globulin Ratio 0.9; Albumin Level 3.3 g/dL (3.4-5.0); Alkaline Phosphatase 59 U/L (46-116); Anion Gap 12.2; Aspartate Amino Transferase 17 U/L (15-37); BUN Creatinine Ratio 18.4; Bilirubin Total 0.3 mg/dL (0.2-1.0); Calcium 9.2 mg/dL (8.5-10.1); Carbon Dioxide 26.4 mmol/L (21.0-32.0); Chloride 106 mmol/L (98-107); Estimated GFR (African America >60 (>=60 mL/min/1.73m^2); Estimated GFR (Non-African Ame >60 (>=60 mL/min/1.73m^2); Globulin 3.6 g/dL; Glucose 128 mg/dL (74-106); Potassium 4.6 mmol/L (3.5-5.1); Sodium 140 mmol/L (136-145); Total Protein 6.9 g/dL (6.4-8.2)
[2024-06-29] MEDS: AZITHROMYCIN 250 MG TABLET 500 MG PO (08:34)
[2024-06-29] MEDS: LISINOPRIL/HYDROCHLOROTHIAZIDE 20-12.5 MG TABLET 1 TAB PO (08:35)
[2024-06-29] MEDS: FUROSEMIDE 40 MG/4 ML VIAL IVP (08:35)
[2024-06-29] MEDS: ENOXAPARIN SODIUM 40 MG/0.4 ML SYRINGE SUBQ (08:35)
--- NOTE | 2024-06-29 09:57 | SWNOTE1 ---
SW spoke to case management and pt will need home oxygen. SW to see what company pt would like to use.
--- NOTE | 2024-06-29 10:41 | P.DS_ITS ---
DS: Providers Provider Date of admission: 06/28/24 10:50 Primary care physician: Mark Quick DO Admitting clinician: Shaikh Alex Attending physician on admission: Shaikh Alex Consults: 06/27/24 14:10 Physical Therapy Eval and Treat Routine Reason for consultation: Ambulatory dysfunction/weakness Attending physician on discharge: Shaikh Alex Discharging clinician: Shaikh Alex Anticipated date of discharge: 06/29/24 DS: Diagnosis Discharge Diagnosis (1) COPD exacerbation: (2) Acute respiratory failure with hypoxia: (3) Leukocytosis: Qualifiers: Leukocytosis type: leukemoid reaction Qualified Code(s): D72.823 - Leukemoid reaction (4) Multifocal pneumonia: DS: Summary Hospital Course Hospital Course: 64-year-old male with history of COPD presented to ER with 1 day history of productive cough, shortness of breath with wheezing. He was in his usual state of health before he got sick. He denies fever, chills or sick contacts. He has not had any recent COPD exacerbation. Uses Wixela for COPD. In ER, he was found to have increased work of breathing with tachypnea and hypoxia with pulse ox as low as 85%. He tested negative for influenza and RSV. He had 2 negative home test for COVID. No evidence of consolidation or pneumonia on chest x-ray. He was treated with IV Solu-Medrol, inhaled DuoNebs and empirical IV antibiotics -IV Rocephin and azithromycin. Patient admitted for COPD exacerbation and acute respiratory failure with hypoxia. On subsequent day, his hypoxia worsened and he was still considerably short of breath. CT chest ordered revealed multifocal PNA. He was continued on IV rocephin/azithroymcin, duonebs and IV solumedrol. He is subjectively doing well but has persistent hypoxia. He is still needing 2L O2 but clinically improved. Discussed home O2 use with patient. We will do a 6 min walk test to determine his O2 requirement at home. I anticipate that this will be temporary need and he likely should be able to wean himself off of O2 within a few days. Patient medically stable for discharge. I will discharge him on oral Prednsione taper, Oral Ceftin for PNA. He also asked me for albuterol nebs and inhaler. Patient will also need an anti hypertensive for HTN. He was educated on worrisome signs and symtpoms and that he should seek care if he developed worsening SOB, hypoxia while at home Time spent discussing smoking cessation with patient: 3 to 10 minutes Status at Discharge Functional status at discharge: independent ambulation Overall status at discharge: patient is progressing back to baseline Time Spent with Patient Time attestation: Total time spent providing and/or coordinating discharge services: Time spent: greater than 30 minutes Exam Constitutional Vital Signs, click to edit/add: Last Vital Signs Temp 98.4 F 06/29/24 03:00 Pulse 77 06/29/24 09:57 Resp 16 06/29/24 04:18 BP 132/73 06/29/24 08:35 Pulse Ox 91 L 06/29/24 10:12 O2 Del Method Nasal Cannula 06/29/24 10:12 O2 Flow Rate 2 06/29/24 10:12 FiO2 4 06/28/24 07:48 Documenting provider has reviewed patient's vital signs: yes Common normals: oriented x3 General appearance: cooperative Nutritional appearance: obese Respiratory Common normals: normal respiratory effort, no use of accessory muscles and clear to auscultation bilaterally Effort & inspection: able to speak in complete sentences Cardio Common normals: regular rate, S1 normal heart sound and S2 normal heart sound Rate: regular rate Heart sounds: S1 normal and S2 normal Extremity Common normals: no clubbing, cyanosis or edema Neuro Common normals: oriented x3, moves all extremities and no focal motor deficits Psych Common normals: mental status grossly normal, denies hallucinations, denies homicidal ideation and denies suicidal ideation DS: Data Data Completed and Pending Labs on day of discharge: Labs from last 24 hours 06/29/24 05:36 WBC 15.5 H RBC 4.56 L Hgb 14.6 Hct 43.3 MCV 95.0 H MCH 32.0 MCHC 33.7 RDW 15.0 Plt Count 209 MPV 10.2 Neut % (Auto) 85.1 H Lymph % (Auto) 7.4 L [place] % (Auto) 6.9 Eos % (Auto) 0.1 L Baso % (Auto) 0.1 L Neut # (Auto) 13.2 H Lymph # (Auto) 1.1 L [place] # (Auto) 1.1 H Eos # (Auto) 0.0 Baso # (Auto) 0.0 Abs Immat Gran (auto) 0.06 H Imm/Tot Granulo (auto) 0.4 Sodium 140 Potassium 4.6 Chloride 106 Carbon Dioxide 26.4 Anion Gap 12.2 BUN 21.0 H Creatinine 1.14 Est GFR ( Amer) >60 Est GFR (Non-Af Amer) >60 BUN/Creatinine Ratio 18.4 Glucose 128 H Calcium 9.2 Total Bilirubin 0.3 AST 17 ALT 23 Alkaline Phosphatase 59 Total Protein 6.9 Albumin 3.3 L Globulin 3.6 Albumin/Globulin Ratio 0.9 Discharge Plan Discharge Disposition: Home, Self-Care Condition: Fair Discharge Medications: New prednisone 20 mg tablet 20 mg PO DAILY Qty: 20 0RF Rx Instructions: 3 tab x 3 days, 2 tab x 3 days, 1 tab x 3 days, 1/2 tab x 4 days cefuroxime axetil 500 mg tablet 500 mg PO BID 5 Days Qty: 10 0RF albuterol sulfate 90 mcg/actuation HFA aerosol inhaler 2 inh inhalation Q4H PRN (Reason: shortness of breath or wheezing) Qty: 6.7 0RF albuterol sulfate 2.5 mg /3 mL (0.083 %) solution for nebulization 1.25 mg inhalation Q4H PRN (Reason: shortness of breath or wheezing) Qty: 75 0RF Continued esomeprazole magnesium 40 mg capsule,delayed release(DR/EC) 40 mg PO Q24H fluticasone propion-salmeterol 250-50 mcg/dose blister with device 1 inh INHALATION Q12H tamsulosin 0.4 mg capsule 0.4 mg PO Q24H Discontinued doxycycline hyclate 100 mg capsule 100 mg PO Q12H Activity: increase activity as tolerated Diet: advance to your usual diet Print Language: Tamazight Forms: Portal Instructions Follow Up Appointments: F/u with PCP in one week
--- NOTE | 2024-06-29 10:45 | CM.NOTE ---
Rounds made with Dr. Johnson, pt will discharge to home today. Pt will have walk test for home oxygen evaluation. Dr. Johnson discussed importance of no smoking with oxygen use at home, pt verbalizes understanding.
--- NOTE | 2024-06-29 11:08 | SWNOTE1 ---
SW spoke pt and in room in regards to home oxygen. They do not have a preference on DME company. SANCHEZ provided list. SW to send referral to [facility]. SANCHEZ sent demographic sheet, walk test, dc summary, and script to [facility].
[2024-06-29] MEDS: CEFTRIAXONE 1,000 MG in 0.9 % SODIUM CHLORIDE 50 ML 100 MG IV (11:12)
--- NOTE | 2024-06-29 11:33 | NUTR.NU ---
Interviewed Matteo at bedside. ht 6'1 wt 270.0# BMI 35.8 obese class II Dx multi focal PNA.
--- NOTE | 2024-06-29 11:46 | RESP.RT ---
Addendum entered by Karen Kirkpatrick, SMOKE EATER 06/29/24 11:54: this note documentation was for 06/28/24 at 1057 Original Note: decreased to 3 lpm at this time
--- NOTE | 2024-06-29 12:20 | SWNOTE1 ---
SW received call from [facility] and pt is all set with oxygen. SW took the [employer] tank to the room and advised pt and to call the number that is attached to the tank on way home or when they arrive home. SW let them know a delivery mgr will deliver the rest of the equipment and educate them. Pt and voiced understanding. SW let nurse know as well.
--- NOTE | 2024-07-03 14:51 | CM.DCFOLLOWU ---
Person spoke with:patient How are you feeling?well How is your pain?none Did you understand your discharge instructions?yes Do you have any questions about your discharge instructions?no Were you given any prescriptions at discharge?yes Were you able to get your prescriptions filled? yes Do you understand how to take your medications as ordered?yes Do you have any questions about your follow up appointment and do you plan to keep your follow up appointment?no questions, follow up apt is Tuesday Is there anything else that you would like to discuss?no Questions/Comments/Concerns/Other:none
== END 2024-06-29 13:17 | disposition home or self-care (01) | DRG 193 ==
LOC: ER 12:54 → MS 06-28 06:09
PROVIDERS: Admitting Provider Internal Medicine; Emergency Provider Emergency Medicine; PCP Internal Medicine; Visit Provider Internal Medicine
DX: J18.9 Pneumonia, unspecified organism (principal); J96.01 Acute respiratory failure with hypoxia; J44.1 Chronic obstructive pulmonary disease with (acute) exacerbation; J44.0 Chronic obstructive pulmonary disease with (acute) lower respiratory infection; Z90.49 Acquired absence of other specified parts of digestive tract; F17.200 Nicotine dependence, unspecified, uncomplicated; D72.829 Elevated white blood cell count, unspecified; E78.00 Pure hypercholesterolemia, unspecified; E66.9 Obesity, unspecified; Z68.35 Body mass index [BMI] 35.0-35.9, adult; Z99.81 Dependence on supplemental oxygen
CPT/HCPCS: 36415; 71045; 71250; 80053; 83605; 83735; 84484; 85025; 87040; 87420; 87804; 93005; 94640; 94667; 94668; 94761; 96365; 96366; 96367; 96375; 99285; 99406; G0378; J0456; J0696; J1650; J1885; J1940; J2919

== ENCOUNTER 2024-10-25 11:32 | Outpatient (OUT) | payer BC, SELFPAY ==
[2024-10-25 11:49] LABS: Estimated GFR (African America >60 (>=60 mL/min/1.73m^2); Estimated GFR (Non-African Ame 54 (>=60 mL/min/1.73m^2)
--- NOTE | 2024-10-25 11:50 | CT_ITS ---
The [address] [address] Patient Name: ALLYSON FARMER MRN: [id number] date: 1960 Sex: M Assigned Patient Location: LAB Current Patient Location: LAB Accession/Order Number: [id number] Exam Date: 10/25/2024 14:46 Report Date: 10/25/2024 14:50 At the request of: TOBIN WHEATLEY DO Procedure: CT abdomen pelvis w con CT Abdomen and Pelvis withcontrast TECHNIQUE: Axial imaging with 2-D reconstruction.100 cc of Omnipaque 300.. The CT exam was performed using one or more the following dose reduction techniques: Automated exposure control, adjustment of the MA and/or Kv according to patient size, or use of the iterative reconstruction technique. COMPARISON: None History: Left lower quadrant pain. LIMITATIONS: None LOWER THORAX Unremarkable LIVER: Unremarkable GALLBLADDER: No gallbladder abnormality identified. BILE DUCTS: No dilatation SPLEEN: Unremarkable PANCREAS: Unremarkable ADRENAL GLANDS: Unremarkable KIDNEYS:Unremarkable AORTA: No abdominal aortic aneurysm identified. Atherosclerosis. RETROPERITONEUM: No significant retroperitoneal abnormalities identified. MESENTERY:Unremarkable SMALL BOWEL: The small bowel loops are nondistended. APPENDIX: The appendix is not seen. No pericecal inflammatory changes identified. COLON: Moderate constipation. No colitis or diverticulitis. URINARY BLADDER: Urinary bladder is unremarkable. REPRODUCTIVE SYSTEM: Reproductive structures are unremarkable. PNEUMOPERITONEUM: None PERITONEAL FLUID:None BONY STRUCTURES: Lower lumbar degenerative change. Left femoral head AVN. No articular collapse. ABDOMINAL WALL: Unremarkable CT/CT abdomen pelvis w con IMPRESSION: No acute findings. Moderate constipation. No colitis or diverticulitis. No obstructive uropathy. Impression dictated by: Jesse Lopez M.D.10/25/2024 2:50 PM Dictation Location: [employer] Electronically authenticated by: [id number] Y Date: 10/25/2024 14:50
--- NOTE | 2024-10-25 11:50 | CT_ITS ---
The [address] [address] Patient Name: ALLYSON FARMER MRN: [id number] date: 1960 Sex: M Assigned Patient Location: LAB Current Patient Location: LAB Accession/Order Number: [id number] Exam Date: 10/25/2024 14:41 Report Date: 10/25/2024 14:45 At the request of: TOBIN WHEATLEY DO Procedure: CT chest wo con CT Chest without contrast TECHNIQUE: Axial imaging with 2-D reconstruction. The CT exam was performed using one or more the following dose reduction techniques: Automated exposure control, adjustment of the MA and/or Kv according to patient size, or use of the iterative reconstruction technique. History: Multifocal pneumonia. Continued cough. COMPARISON: 06/28/2024 THYROID: Unremarkable TRACHEA AND BRONCHI: Patent ESOPHAGUS: Unremarkable. HEART: Within normal limits PERICARDIAL EFFUSION: None CORONARY ARTERY CALCIFICATION: Mild MEDIASTINUM: No adenopathy. No pneumoperitoneum. No mediastinal hematoma. PULMONARY IDALIA: No hilar mass or adenopathy is seen. THORACIC AORTA Unremarkable LUNG NODULE None LUNGS: Lungs are clear PLEURAL EFFUSION: None PNEUMOTHORAX: No pneumothorax seen. CHEST WALL: No abnormality AXILLA:Unremarkable BONY STRUCTURES thoracic spondylosis UPPER ABDOMEN: Images of the upper abdomen are noncontributory. CT/CT chest wo con IMPRESSION: Resolution of infiltrate. No acute cardiopulmonary disease. Impression dictated by: Jesse Lopez M.D.10/25/2024 2:45 PM Dictation Location: [employer] Electronically authenticated by: [id number] Y Date: 10/25/2024 14:45
== END 2024-10-25 11:33 | disposition home or self-care (01) ==
LOC: LAB 11:33
PROVIDERS: PCP Internal Medicine; Visit Provider Internal Medicine
DX: R10.32 Left lower quadrant pain (principal); J18.9 Pneumonia, unspecified organism; K59.00 Constipation, unspecified
CPT/HCPCS: 36415; 71250; 74177; 82565; Q9967

== ENCOUNTER 2024-12-31 08:22 | Outpatient (OUT) | payer BC, SELFPAY ==
--- OUTSIDE RECORDS SUMMARY | 2020-10-23 05:30 | XMS_ITS | Continuity of Care Document ---
Author Organization [facility] Address [address] [place] [address] Phone Care Team Providers Care Burner Machine Operator Name Role Phone Baldemar Bryant Unavailable Unavailable Procedures Procedure Date Pfizer COVID Vaccine Admin Dose 2 COVID-19 Pfizer Pfizer COVID Vaccine Admin Dose 1 COVID-19 Pfizer Advance Directives Directive Yes / No Effective Date File Name No Information Encounters Encounter Description Practice Location Reason(s) For Visit Diagnoses Date Provider Providers Copied on Encounter [facility], [address] [place], [place], [id number], [place] tel:[phone] COVID ECHD No Information Caroi DO Mcdermott. [address] [place], [place], [id number], [place]. tel:[phone] [facility], [address] [place] [address], [id number], tel:[phone] COVID ECHD No Information Visci DO Baldemar. [address] [place], [place], [id number], [place]. tel:[phone] Family History Family Member Type Diagnosis Age At Onset No Information Immunizations Vaccine Date Status Comments Pfizer COVID administered Source: New Imm unization Record Pfizer COVID administered Source: [place] unization Record Payers Payer name Insurance type Covered libertarian ID Authoriza tion(s) [place] [id number] [place] [id number] [place] [id number] Social History Type Description Quantity Date Captured [...]
--- OUTSIDE RECORDS SUMMARY | 2024-12-25 11:00 | XMS_ITS | Encounter Summary ---
Author Organization [facility] Address [address] [place] [address] Care Team Providers Care Electron Tube Assembler Name Role Phone Mark Quick DO Primary Care Provider [phone] Reason for Referral * Consultation (Routine) - Pending Review Specialty Diagnoses / Procedures Referred By Alison astorga Referred To Contact Infectious Diseases Diagnoses Tinea manuum Procedures [place] OFFICE/OUTPATIENT [facility] 60 MINUTES Chelsy Toro MD [address] [facility] [address] [place] [address] Phone: tel: fax: Mulugeta Bella MD [address] [place] [address] Phone: tel: fax: Referral ID Status Reason Start Date Expiration Date Visits Requested Visits Authorized [id number] Pending Review Specialty Services Required 12/25/2024 06/23/2025 1 1 Reason for Visit * Reason Comments Suspicious Skin Lesion Encounter Details Date Type Department Care Team (Late st Contact Info) Description 12/25/2024 11:00 AM EDT Office Visit [facility] [address] [place] [address] Chelsy Toro MD [address] [place] [address] Tinea manuum (Primary Dx); Skin tag; Neoplasm of unspecified behavior of bone, soft tissue, and skin; Actinic keratosis Social History Tobacco Use Types Packs/Day Years Used Date Smoking Tobacco: Every Day Cigarettes Cigars Passive Smoke Exposure: Current Alcohol Use Standard Drinks/Week Comments Yes 3 (1 standard drink = 0.6 oz pur e alcohol) daily Sex and Gender Information Value Date Recorded Sex Assigned at Male 04/06/2024 11:27 PM EDT Legal Sex Male 7:22 PM EDT Gender Identity Male 04/06/2024 11:27 PM EDT Sexual Orientation Straight 04/06/2024 11 :27 PM EDT documented as of this encounter Progress Notes * Chelsy Toro MD - 12/25/2024 11:00 AM EDT Images from the original note were not included. Lesions: Location: Right buttock Duration: years Quality: painful Modifying factors: rubs on clothing Associated symptoms: red, tender Treatments: none Follow up Diagnosis: Tinea manuum/Atopic dermatitis with secondary bacterial infection Location: Left hand Last visit: 08/14/2024 Symptoms: red, itchy, bumpy Status: worsening, notices more of a flare after handling walleye Procedure performed: : Punch biopsy was nondiagnostic, favored eczematous process, PAS was negativebut patient had been treated with topical antifungal prior and Vikor culture done on 05/07/24 - showed mixed culture including trichophyton and pseudomonas Treatments tried and failed: TAC 0.1 %, Clobetasol 0.05% cream, Oxiconazole Nitrate Cream, Xolegel,Econazole Nitrate, Ceramax, Ketconazole cream, Tazarortene cream, Prednisone was completed in March, flared worse afterwards, was given Cipro 750mg but he has an allergy to this then was given Levofloaxcin and pt had itching with med Doxycycline 100 mg BID x 10 days on 05/09/24 Lamisil 250 mg daily for almost 3 months without improvement Current treatment: Protopic 1% ointment and Gentamicin ointment every morning, improved with this treatment but far from treatment goal. Lesions: Location: Lower lip Duration: few months Quality: denies bleeding Associated symptoms: red, scaly Treatments: none Lesions: Location: Left axilla Duration: months Quality: denies pain Associated symptoms: skin tag Treatments: none All pertinent medical history, medications, and allergies were reviewed. General Exam: alert, oriented to person, place, and time, normal affect, well appearing Accompanied by spouse A focused exam completed based on patient reported problems, see below: Skin Exam 1. SKIN TAG Left Axilla Pedunculated papule The patient was informed that skin tags are benign growths usually found around the neck or in the axillae. No treatment is necessary, but at times they can get caught on jewelry or clothing or become inflamed. Skin tags can be removed with scissors or liquid nitrogen. Patient informed that this isnot covered by insurance and was quoted $20.00 to remove. He declined treatment 2. NEOPLASM OF UNSPECIFIED BEHAVIOR OF BONE, SOFT TISSUE, AND SKIN Right Buttock Erythematous pedunculated papule Lesion biopsy Type of biopsy: tangential Informed consent: discussed and consent obtained Informed consent comment: The risks and benefits of the biopsy were discussed. Risks include but are not limited to bleeding, infection, scarring, pain, and nerve damage. An opportunity to ask questions prior to the procedure was permitted and all questions were answered. Patient was prepped and draped in usual sterile fashion: area cleansed with alcohol. Anesthesia: the lesion was anesthetized in a standard fashion Anesthetic: 1% lidocaine w/ epinephrine 1-100,000 buffered w/ 8.4% NaHCO3 Instrument used: DermaBlade Hemostasis achieved with: electrodesiccation Outcome: patient tolerated procedure well Outcome comment: The specimen was placed in a prelabeled formalin container to be sent for pathology Post-procedure details: sterile dressing applied and wound care instructions given Post-procedure details comment: Emphasized need to contact clinic for any signs of infection, uncontrollable bleeding, or complications. Dressing type: bandage Additional details: Photo taken yes Amount of lidocaine used: 0.5 cc Specimen A - Dermatopathology exam Differential Diagnosis: inflamed skin tag, doubt SCC Check Margins: No Size of lesion: 1.0 x 1.0 cm 3. ACTINIC KERATOSIS (3) Mid Lower Vermilion Lip (3) Erythematous scaly papules Patient was counseled regarding these sun-induced growths that can develop into squamous cell carcinoma if left untreated. Discussed treatment with cryotherapy. It was emphasized that any treated lesions that fail to resolve should be re- evaluated. Cryotherapy performed today; see procedure note Diagnosis: Actinic keratosis Indication: Precancerous Location: see skin exam Consent: Verbal consent was obtained and risks were discussed, including, but not limited to risks of scarring, darker or it help desk manager pigmentary changes, recurrence, incomplete removal and infection. Method: Liquid nitrogen was used to treat the lesion(s) with two 5-10 second freeze-thaw cycles. Number of lesions treated: 3 Post-procedure instructions: Instructions were given verbally. The office will be contacted if the lesion fails to resolve despite treatment, or if a side effect develops such as abnormal crusting, scabbing, redness or tenderness Cryotherapy, skin lesion - Mid Lower Vermilion Lip (3) 4. TINEA MANUUM Left Hand - Posterior Xerosis on palm, pink patches and hyperkeratotic papules on the dorsal hand. Patient reports onychomycosis of multiple toenails. Right hand with mild xerosis but overall uninvolved. Clinical picture most consistent with tinea manuum, however patient failed to improve after 3 months of oral terbinafine. Last culture showing multiple organisms including trichophyton and pseudomonas, patient has not cleared despite treatment for both. At this point recommend referral to infectious disease for the clinicial question of does this patient appear to have a drug resistant fungal infection vs just colonization with these pathogens and underlying atopic dermatitis vs contact dermatitis? If infectious disease does not think patient has underlying infection, could consider patch testing to rule out possible contact allergen as unilateral atopic dermatitis would be less likely. Will also try a sample of Zoryve 0.3% cream daily, call if this is working and will send in a prescription. Related Procedures Ambulatory referral to Infectious Disease Next Visit: prn documented in this encounter Plan of Treatment Upcoming Encounters Date Type Department Care Team (Late st Contact Info) Description 01/16/2025 9:00 AM EDT Consult [facility] [address] [place] [address] Jen Reagan, [address] [place] [address] 02/11/2025 9:15 AM EDT Office Visit [facility] [place] [address] [place] [address] Sterling Blas, DO [address] [place] [address] 08/15/2025 8:35 AM EST Office Visit [facility] [address] [place] [address] Sulma Escobar, JARED-ACCOUNTING RECRUITER [address] [place] [address] Scheduled Referrals Name Type Priority Associated Diagnoses Order Schedule Ambulatory referral to Infectious Disease Outpatient Referral Routine Tinea manuum Expected: 12/25/2024 (Approximate), Expires: 06/26/2025 documented as of this encounter Procedures Procedure Name Priority Date/Time Associated Diagnosis Comments CRYOTHERAPY SKIN LESION Routine 12/26/19 11:26 AM EDT Actinic keratosis SKIN / NAIL BIOPSY Routine 12/25/2024 11 :21 AM EDT Neoplasm of unspecified behavior of bone, soft tissue, and skin DERMATOPATHOLOGY EXAM Routine 12/25/2024 12:00 AM EDT Neoplasm of unspecified behavior of bone, soft tissue, and skin documented in this encounter Results * Cryotherapy, skin lesion (12/25/2024 11:26 AM EDT) Chelsy Toro MD DERM PROCEDURE ORDERABLES Fin al Result * Lesion biopsy (12/25/2024 11:21 AM EDT) Narrative Maggie Martinez LPN - 12/25/2024 11:21 AM EDT Type of biopsy: tangential Informed consent: discussed and consent obtained Informed consent comment: The risks and benefits of the biopsy were discussed. Risks include but are not limited to bleeding, infection, scarring, pain, and nerve damage. An opportunity to ask questions prior to the procedure was permitted and all questions were answered. Patient was prepped and draped in usual sterile fashion: area cleansed with alcohol. Anesthesia: the lesion was anesthetized in a standard fashion Anesthetic: 1% lidocaine w/ epinephrine 1-100,000 buffered w/ 8.4% NaHCO3 Instrument used: DermaBlade Hemostasis achieved with: electrodesiccation Outcome: patient tolerated procedure well Outcome comment: The specimen was placed in a prelabeled formalin container to be sent for pathology Post-procedure details: sterile dressing applied and wound care instructions given Post-procedure details comment: Emphasized need to contact clinic for any signs of infection, uncontrollable bleeding, or complications. Dressing type: bandage Additional details: Photo taken yes Amount of lidocaine used: 0.5 cc Chelsy Toro MD DERM PROCEDURE ORDERABLES Fin al Result * Dermatopathology exam (12/25/2024 12:00 AM EDT) SPECIMEN TYPE SPECIMEN: RIGHT BUTTOCK [facility] ICD10 Code L91.8 [facility] PROTOCOL F - FLAT [facility] Final Diagnosis FIBROEPITHELIAL PAPILLOMA, INFLAMED, IRRITATED. [facility] Gross Text [facility] Microscopic Description Microscopic examination performed. [facility] CPT 14505*1 [facility] Skin Topography unknown / Unknown 12/25/2024 11:21 AM EDT Comment:Differential Diagnos is: inflamed skin tag, doubt SCC Check Margins: No Size of lesion: 1.0 x 1.0 cm us Chelsy Toro MD LAB PATHOLOGY ORDERABLES Gia l Result [facility] documented in this encounter Visit Diagnoses Diagnosis Tinea manuum- Primary Dermatophytosis of hand Skin tag Unspecified hypertrophic and atrophic condition of skin Neoplasm of unspecified behavior of bone, soft tissue, and skin Actinic keratosis documented in this encounter Care Teams Electron Tube Assembler Relationship Specialty Start Date End Date Mark Quick DO [address] [place] [address] PCP - General Internal Medicine 11/15/24 documented as of this encounter
--- OUTSIDE RECORDS SUMMARY | 2024-12-31 08:26 | XMS_ITS | Clinical Summary ---
Author Organization [facility] Address [id number] [address] [place] [address] Care Team Providers Care Ship Fastener Name Role Phone Mark Quick DO Primary Care Provider [phone] Allergies No known active allergies Medications rosuvastatin (CRESTOR) 10 mg tablet Take 10 mg by mouth daily. Active ascorbic acid (VITAMIN C) 500 mg tablet Take 500 mg by mouth daily. Active calcium carbonate-vitami n D3 (OSCAL 500 + D) 500 mg(1,250mg) -200 units per tablet Take 1 tablet by mouth 2 (two) times a day with meals. Active esomeprazole (NexIUM) 40 mg capsule Take 40 mg by mouth every morning before breakfast. Active loperamide (IMODIUM) 2 mg capsule Take 2 mg by mouth 4 (four) times a day as needed for diarrhea. Active predniSONE (DELTASONE) 10 mg tabletIndication s:Chronic sinusitis, unspecified location 6 tabs daily x 2 days, 5 tabs daily x 2 days, 4 tabs x 2 days, 3 tablets x 2 days, 2 tablets x 2 days, and 1 tab x 2 days. 42 tablet 1 Active olopatadine (PATADAY) 0.2 % dropsIndications :Allergic rhinitis, unspecified seasonality, unspecified trigger ADMINISTER 1 DROP TO BOTH EYES DAILY NEEDED 15 mL 1 1 Active montelukast (SINGULAIR) 10 mg tabletIndication s:Allergic rhinitis, unspecified seasonality, unspecified trigger Take 1 tablet (10 mg total) by mouth daily. 90 tablet 3 1 Active Active Problems Problem Noted Date Diagnosed Date Allergic rhinitis 11/24/2020 Chronic sinusitis 10/23/2020 Hearing loss 10/23/2020 Social History Tobacco Use Types Packs/Day Years Used Date Smoking Tobacco: Every Day Cigars Smokeless Tobacco: Never Alcohol Use Standard Drinks/Week Comments Yes 0 (1 standard drink = 0.6 oz pur e alcohol) AUDIT-C Answer Date Recorded Q1: How often do you have a drink containing alc ohol? Not asked 10/23/2020 Q2: How many drinks containi ng alcohol do you have on a typical day when you are drinking? 7 to 9 10/23/2020 Q3: How often do you have six or more drinks on one occasion? Not asked 10/23/2020 PHQ-2 Answer Date Recorded Total Score 0 10/23/2020 Childcare Answer Date Recorded Childcare Unknown 10/22/2020 Employment Answer Date Recorded Employment Unknown 10/22/2020 Purpose - Life Answer Date Recorded Purpose and direction in life Unknown Sex and Gender Information Value Date Recorded Sex Assigned at Not on file Legal Sex Male 11:39 AM EDT Gender Identity Not on file Sexual Orientation Not on file Last Filed Vital Signs Vital Sign Reading Time Taken Comments Blood Pressure 142/88 10/23/2020 10:39 AM EDT Pulse - - Temperature - - Respiratory Rate - - Oxygen Saturation - - Inhaled Oxygen Concentration - - Weight 125.6 kg (277 lb) 10/23/2020 10:39 AM EDT Height 185.4 cm (6' 1 ) 10/23/2020 10:39 AM EDT Body Mass Index 36.55 10/23/2020 10:39 AM EDT Plan of Treatment Health Maintenance Due Date Last Done Comments Depression Screening 1973 Tobacco Screening 1973 Adult BMI Screening 1979 DTaP,Tdap and Td Vaccines (1 - Tdap) 1980 Zoster (Shingles) Vaccine (1 of 2) 2011 Influenza Vaccine 03/25/2025 Medical Devices Not on file Insurance Care Teams Ship Fastener Relationship Specialty Start Date End Date Mark Quick DO [address] [place] [address] PCP - General Internal Medicine 11/11/20
--- OUTSIDE RECORDS SUMMARY | 2024-12-31 08:26 | XMS_ITS | Encounter Summary ---
Author Organization [facility] Address [address] [place] [address] Care Team Providers Care Senior Network Engineer Name Role Phone Mark Quick DO Primary Care Provider [phone] Encounter Details Date Type Department Care Team (Late st Contact Info) Description 12/18/2024 Telephone [facility] [address] [place] [address] Mark Quick DO [address] [place] [address] Social History Tobacco Use Types Packs/Day Years [...] PM EDT documented as of this encounter Miscellaneous Notes * Telephone Encounter - Jourdan Terence - 12/18/2024 11:55 AM EDT Hi, this is Dub Negra Daniella, I am calling for my Matteo Brewer. date is 1959. He has an appointment at the [place] [facility] on january 16. To see Dr barakat was supposed to have got a PFT in [place]. But apparently the machine's been broken. So they were to have transferred everything over to [facility] so he could have it done and I just talked to [place], they have not received any of that. So I do not know if your office needs to do it or I need to call back to the clinicthat does the pulmonary function testing and dusk and have them Redo it, but like to see if we can get him set up in [facility] to have a pulmonary function test before he sees Dr. Barakat appreciate if you could call me back at [phone], thank you. documented in this encounter Plan of Treatment Upcoming Encounters Date Type Department Care Team (Late st Contact Info) Description 01/16/2025 9:00 AM EDT Consult [facility] [address] [place] [phone] eJn Reagan, DO [address] [place] [address] 02/11/2025 9:15 AM EDT Office Visit [facility] [address] [place] [address] Sterling Blas DO [address] [place] [address] 08/15/2025 8:35 AM EST Office Visit [facility] [address] [place] [address] Sulma Escobar, SENIOR INTERACTION DESIGNER-LABELING MACHINE OPERATOR [address] [place] [address] documented as of this encounter Visit Diagnoses Not on filedocumented in this encounter Care Teams Senior Network Engineer Relationship Specialty Start Date End Date Mark Quick DO [address] [place] [address] PCP - General Internal Medicine 11/15/24 documented as of this encounter
--- OUTSIDE RECORDS SUMMARY | 2024-12-31 08:26 | XMS_ITS | Encounter Summary ---
Author Organization [facility] Address [address] [place] [address] Care Team Providers Care Anatomy Teacher Name Role Phone Mark Quick DO Primary Care Provider [phone] Encounter Details Date Type Department Care Team (Late st Contact Info) Description 12/19/2024 Orders Only [facility] [address] [place] [address] Marga Albright, REBECA-SDS Social History Tobacco Use Types Packs/Day Years [...] PM EDT documented as of this encounter Plan of Treatment Upcoming Encounters Date Type Department Care Team (Late st Contact Info) Description 01/16/2025 9:00 AM EDT Consult [facility] [address] [place] [address] Jen Reagan DO [address] [place] [address] 02/11/2025 9:15 AM EDT Office Visit [facility] [place] [address] [place] [address] Sterling Blas, [address] [place] [address] 08/15/2025 8:35 AM EST Office Visit [facility] [address] [facility] [address] [place] [address] Sulma Escobar APRN-SKULL GRINDER [address] [facility] [address] [place] [address] documented as of this encounter Visit Diagnoses Not on filedocumented in this encounter Care Teams Anatomy Teacher Relationship Specialty Start Date End Date Mark Quick DO [address] [facility] [place] [address] PCP - General Internal Medicine 11/15/24 documented as of this encounter
--- OUTSIDE RECORDS SUMMARY | 2024-12-31 08:26 | XMS_ITS | Encounter Summary ---
Author Organization [facility] Address [address] [facility] [place] [address] Care Team Providers Care Instructor Creeler Name Role Phone Mark Quick DO Primary Care Provider [phone] Encounter Details Date Type Department Care Team (Late st Contact Info) Description 12/28/2024 Results Follow-Up [facility] [address] [facility] [facility] [address] [place] [address] Chelsy Toro MD [address] [facility] [address] [place] [address] Social History Tobacco Use Types Packs/Day Years [...] 01/16/2025 9:00 AM EDT Consult [facility] [address] [place] [address] Jen Reagan DO [address] [place] [address] 02/11/2025 9:15 AM EDT Office Visit [facility] [place] [address] [place] [address] Sterling Blas DO [address] [place] [address] 08/15/2025 8:35 AM EST Office Visit [facility] [address] [place] [address] Sulma Escobar, PIPE ORGAN BUILDER-BREAKFAST MANAGER [address] [place], [place] [address] documented as of this encounter Visit Diagnoses Not on filedocumented in this encounter Care Teams Instructor Creeler Relationship Specialty Start Date End Date Mark Quick DO [address] [facility] [place] [address] PCP - General Internal Medicine 11/15/24 documented as of this encounter
--- OUTSIDE RECORDS SUMMARY | 2024-12-31 08:26 | XMS_ITS | Encounter Summary ---
Author Organization [facility] Address [address] [facility] [place] [address] Care Team Providers Care Svp Digital Ad Sales Name Role Phone Mark Quick DO Primary Care Provider [phone] Mark Quick DO Primary Care Provider Encounter Details Date Type Department Care Team (Late st Contact Info) Description 04/13/2023 Orders Only [facility] [place] [address] [place] [address] Provider, MD Cindy [address] [place] [address] Social History Tobacco Use Types Packs/Day Years [...] Description 01/16/2025 9:00 AM EDT Consult [facility] [address] [place] [address] Jen Reagan DO [address] [place] [address] 02/11/2025 9:15 AM EDT Office Visit [facility] [place] [address] [place] [address] Sterling Blas DO [address] [place] [address] 08/15/2025 8:35 AM EST Office Visit [facility] [address] [place] [address] Sulma Escobar, RAG SORTER AND CUTTER-MARBLE MACHINE OPERATOR [address] [place], [place] [phone] documented as of this encounter Visit Diagnoses Not on filedocumented in this encounter Care Teams Svp Digital Ad Sales Relationship Specialty Start Date End Date Mark Quick DO PCP - General Internal Medicine 11/29/22 11/14/24 Mark Quick DO [address] [facility] [place] [address] PCP - General Internal Medicine 11/15/24 documented as of this encounter
--- OUTSIDE RECORDS SUMMARY | 2024-12-31 08:26 | XMS_ITS | Encounter Summary ---
Author Organization [facility] Address [address] [facility] [place] [address] Care Team Providers Care Pharmaceutical Engineer Name Role Phone Mark Quick DO Primary Care Provider [phone] Abdelrahman Mark Agee DO Primary Care Provider [phone] Reason for Visit * Reason Onset Date Comments Medication Question 05/24/2024 Results 05/24/2024 Lab results rece ived. Encounter Details Date Type Department Care Team (Late st Contact Info) Description 05/24/2024 Telephone [facility] [address] [place] [address] Nichelle Ferguson MA Medication Question; Results (Lab results received. ) Social History Tobacco Use Types Packs/Day Years [...] encounter Miscellaneous Notes * Telephone Encounter - Sandy Romero LPN - 06/01/2024 10:30 AM EST Nataloe- Lab results are scanned in. ALT 13 AST 13 * Telephone Encounter - Nichelle Ferguson MA - 05/24/2024 11:15 AM EDT Message left from pt spouse stating he was prescribed Lamisil once daily x 14 days, prescribed 05/17/24. He was only given 7 tabs by the pharmacy and is already out. Phone call to [facility] in [place], they didn't specify what happened but will prepare a refill for 7 tabs that he may pickup today. Patient informed, no further action needed at this time. documented in this encounter Plan of Treatment Upcoming Encounters Date Type Department Care Team (Late st Contact Info) Description 01/16/2025 9:00 AM EDT Consult [facility] [address] [place] [address] Jen Reagan, DO [address] [place] [address] 02/11/2025 9:15 AM EDT Office Visit [facility] [address] [place] [address] Sterling Blas, DO [address] [place] [address] 08/15/2025 8:35 AM EST Office Visit [facility] [address] [place] [address] Sulma Escobar APRN-SCRATCH BRUSHER [address] [place], [place] [address] documented as of this encounter Visit Diagnoses Not on filedocumented in this encounter Care Teams Pharmaceutical Engineer Relationship Specialty Start Date End Date Mark Quick DO PCP - General Internal Medicine 11/29/22 11/14/24 Mark Quick DO [address] [place] [address] PCP - General Internal Medicine 11/15/24 documented as of this encounter
--- OUTSIDE RECORDS SUMMARY | 2024-12-31 08:26 | XMS_ITS | Encounter Summary ---
Author Organization [facility] Address [address] [place] [address] Care Team Providers Care Tufting Machine Fixer Name Role Phone Mark Quick DO Primary Care Provider [phone] Encounter Details Date Type Department Care Team (Late st Contact Info) Description 12/25/2024 Bamboo flowsheet [facility] [address] [place] [phone] Chelsy Toro MD [address] [place], [place] [id number] Social History Tobacco Use Types Packs/Day Years [...] 9:00 AM EDT Consult [facility] [address] [place] [address] Jen Reagan DO [address] [place] [address] 02/11/2025 9:15 AM EDT Office Visit [facility] [address] [place] [phone] Sterling Blas DO [address] [place] [address] 08/15/2025 8:35 AM EST Office Visit [facility] [address] [place] [address] Sulma Escobar, COAGULANT DIPPER-PROGRAM SPECIALIST [address] [place], [place] [phone] documented as of this encounter Visit Diagnoses Not on filedocumented in this encounter Care Teams Tufting Machine Fixer Relationship Specialty Start Date End Date Mark Quick DO [address] [facility] [place] [phone] PCP - General Internal Medicine 11/15/24 documented as of this encounter
--- OUTSIDE RECORDS SUMMARY | 2024-12-31 08:26 | XMS_ITS | Encounter Summary ---
Author Organization [facility] Address [address] [place] [address] Care Team Providers Care Workers Compensation Examiner Name Role Phone Mark Quick Primary Care Provider [phone] Encounter Details Date Type Department Care Team (Latest Contact Info) Description 12/25/2024 Travel Social History Tobacco Use Types Packs/Day Years [...] AM EDT Consult [facility] [address] [place] [phone] Jen Reagan, DO [address] [place] [address] 02/11/2025 9:15 AM EDT Office Visit [facility] [place] [address] [place] [phone] Sterling Blas, DO [address] [place], [place] [id number] 08/15/2025 8:35 AM EST Office Visit [facility] [address] [facility] [address] [place] [address] Sulma Escobar APRN-REFINING EQUIPMENT OPERATOR [address] [facility] [address] [place] [address] documented as of this encounter Visit Diagnoses Not on filedocumented in this encounter Care Teams Workers Compensation Examiner Relationship Specialty Start Date End Date Mark Quick DO [address] [facility] [place] [phone] PCP - General Internal Medicine 11/15/24 documented as of this encounter
--- OUTSIDE RECORDS SUMMARY | 2024-12-31 08:26 | XMS_ITS | Encounter Summary ---
Author Organization [facility] Address [id number] [address] [place] [address] Care Team Providers Care Chief Controller Tower Name Role Phone Mark Quick Primary Care Provider [phone] Reason for Visit * Reason Comments Med Refill Encounter Details Date Type Department Care Team ([facility] st Contact Info) Description 11/10/2020 Refill [facility] [address] [place] [address] Naima Miranda, PA-C [address] [facility] [address] [place] [address] Chronic sinusitis, unspecified location Social History Tobacco Use Types Packs/Day Years [...] on file Sexual Orientation Not on file COVID-19 Exposure Response Date Recorded In the last month, have you been in contact with someone who was confirmed or suspected to have Coronavirus / COVID-19? No / Unsure 11/11/2020 10:26 AM EDT documented as of this encounter Plan of Treatment Not on file documented as of this encounter Visit Diagnoses Diagnosis Chronic sinusitis, unspecified location documented in this encounter Additional Health Concerns Assessment Noted Time PHQ-9 Depression Total Score: 0 10/24/19 10:34 AM EDT documented as of this encounter Care Teams Chief Controller Tower Relationship Specialty [place] [address] [place] [address] PCP - General Internal Medicine 11/11/20 documented as of this encounter
--- OUTSIDE RECORDS SUMMARY | 2024-12-31 08:26 | XMS_ITS | Clinical Summary ---
Author Organization [facility] Address [address] [place] [address] Care Team Providers Care Urgent Care Physician Assistant Name Role Phone Mark Quick DO Primary Care Provider [phone] Allergies Active Allergy Reactions Criticality Noted Date Comments Cephalexin Rash Low 04/24/2024 Ciprofloxacin Other 06/14/2024 Severe body aches Levofloxacin Itching 06/15/2024 Reports itching on palms and soles after 1 dose, no rash Moxifloxacin Itching 04/24/2024 Penicillins Rash Medium 05/26/2023 Montelukast Unknown 12/25/2024 Medications fluticasone (Flonase) 50 MCG/ACT nasal spray Administer 1 spray into each nostril Daily Active esomeprazole (NexIUM) [address] capsule Take 1 capsule by mouth in the morning. Take before meals. Active aspirin 81 MG EC tablet Take 1 tablet by mouth Daily Active Ascorbic Acid (Vitamin C) 500 MG capsule Take 1 tablet by mouth 1 (one) time each day Active albuterol HFA 90 mcg/act inhaler Inhale 1 puff every 4 (four) hours if needed Active tamsulosin (Flomax) 0.4 MG 24 hr capsule 3 Active Advair Diskus 250-50 MCG/ACT aerosol powder 3 Active tacrolimus (Protopic) 0.1 % ointmentIndica tions:Encounte r for removal of sutures Apply topically 2 (two) times a day 60 g 3 4 05/17/20 25 Active gentamicin (Garamycin) 0.1 % ointmentIndica tions:Bacteria l infection Apply to hands BID prn 15 g 11 5 Active telmisartan-hy droCHLOROthiaz rani (MIcarDIS HCT) 40-12.5 MG tablet Take 1 tablet by mouth Daily 5 Active baclofen (Lioresal) 20 MG tablet TAKE 1 TABLET BY MOUTH TWICE A DAY NEEDED FOR 30 DAYS 2 12/26/19 Discontinu ed(Therapy completed) doxycycline (Monodox) 100 MG capsuleIndicat ions:Bacterial infection Take 1 capsule, by mouth bid, x 10 days 20 capsule 4 12/26/19 Discontinu ed(Therapy completed) lisinopril-hyd roCHLOROthiazi de 10-12.5 MG tablet Take 1 tablet by mouth Daily 5 12/26/19 Discontinu ed(Therapy completed) Active Problems Problem Noted Date Diagnosed Date Chronic rhinitis 12/16/2022 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 [address] [place] [address] Chelsy Toro MD 12/25/2024 11:00 AM EDT Office Visit [facility] [address] [place] [address] Chelsy Toro MD Tinea manuum (Primary Dx); Skin tag; Neoplasm of unspecified behavior of bone, soft tissue, and skin; Actinic keratosis 12/25/2024 Bamboo flowsheet [facility] [address] [place] [address] Chelsy Toro MD 12/25/2024 Travel 12/19/2024 Orders Only [facility] [address] [place] [address] Marga Albright, RUBBER GOODS TESTER-SDS 12/18/2024 Telephone [facility] [address] [place] [address] Mark Quick DO 11/06/2024 Travel 11/02/2024 9:00 AM EDT Office Visit [facility] [place] [address] [phone] Sterling Blas, Chronic cough (Primary Dx); Chronic rhinitis; Tobacco abuse; Laryngopharyngeal reflux (LPR) 11/02/2024 Bamboo flowsheet [facility] [place] [address] [place] [phone] Sterling Blas DO 11/02/2024 Travel from Last 3 Months Family History Medical History Relation Name Comments Cancer Father Diabetes Maternal Grandfather Cancer Maternal Grandmother Cancer Mother Diabetes Paternal Grandfather Relation Name Status Comments Father Maternal Grandfather Maternal Grandmother Mother Alive Paternal Grandfather Social History Tobacco Use Types Packs/Day Years Used Date Smoking Tobacco: Every Day Cigarettes Cigars Passive Smoke Exposure: Current Tobacco Cessation:Ready to Q uit: Not Asked; Counseling Given: Not Answered Alcohol Use Standard Drinks/Week Comments Yes 3 (1 standard drink = 0.6 oz pur e alcohol) daily Sex and Gender Information Value Date Recorded Sex Assigned at Male 04/06/2024 11:27 PM EDT Legal Sex Male 7:22 PM EDT Gender Identity Male 04/06/2024 11:27 PM EDT Sexual Orientation Straight 04/06/2024 11 :27 PM EDT Last Filed Vital Signs Vital Sign Reading Time Taken Comments Blood Pressure 136/83 05/26/2023 2:49 PM EDT Pulse 78 05/26/2023 2:49 PM EDT Temperature - - Respiratory Rate - - Oxygen Saturation - - Inhaled Oxygen Concentration - - Weight 125 kg (275 lb) 11/02/2024 9:15 AM EDT Height 185.4 cm (6' 1 ) 11/02/2024 9:15 AM EDT Body Mass Index 36.28 11/02/2024 9:15 AM EDT Plan of Treatment Upcoming Encounters Date Type Department Care Team (Late st Contact Info) Description 01/16/2025 9:00 AM EDT Consult [facility] [address] [place] [address] Jen Reagan, DO [address] [place] [address] 02/11/2025 9:15 AM EDT Office Visit [facility] [place] [address] [address] Sterling Blas, DO [address] [place] [address] 08/15/2025 8:35 AM EST Office Visit [facility] [address] [place] [address] Sulma Escobar APRN-FACILITY MAINTENANCE SUPERVISOR [address] [place] [address] Health Maintenance Due Date Last Done Comments CT Colonography 1961 Colonoscopy 1961 Colorectal Cancer Screening 1961 FIT-DNA 1961 FIT 1961 FOBT 1961 Sigmoidoscopy 1961 Influenza Vaccine (Season Ended) 2025 Procedures Procedure Name Priority Date/Time Associated Diagnosis Comments CRYOTHERAPY SKIN LESION Routine 12/26/19 11:26 AM EDT Actinic keratosis SKIN / NAIL BIOPSY Routine 12/25/2024 11 :21 AM EDT Neoplasm of unspecified behavior of bone, soft tissue, and skin DERMATOPATHOLOGY EXAM Routine 12/25/2024 12:00 AM EDT Neoplasm of unspecified behavior of bone, soft tissue, and skin from Last 3 Months Results * Cryotherapy, skin lesion (12/25/2024 11:26 AM EDT) us Chelsy Toro MD DERM PROCEDURE ORDERABLES Fin [...] yes Amount of lidocaine used: 0.5 cc us Chelsy Toro MD DERM PROCEDURE ORDERABLES Leon howard Result * Dermatopathology exam (12/25/2024 12:00 AM EDT) SPECIMEN TYPE SPECIMEN: RIGHT BUTTOCK [facility] ICD10 Code L91.8 [facility] PROTOCOL F - FLAT [facility] Final Diagnosis FIBROEPITHELIAL PAPILLOMA, INFLAMED, IRRITATED. [facility] Gross Text [facility] Microscopic Description Microscopic examination performed. [facility] CPT 57892*1 [facility] Skin Topography unknown / Unknown 12/25/2024 11:21 AM EDT Comment:Differential Diagnos is: inflamed skin tag, doubt SCC Check Margins: No Size of lesion: 1.0 x 1.0 cm us Chelsy Toro MD LAB PATHOLOGY ORDERABLES Gia nieves Result [facility] from Last 3 Months Insurance [employer] Care Teams Urgent Care Physician Assistant Relationship Specialty Start Date End Date Mark Quick DO [address] [place] [phone] PCP - General Internal Medicine 11/15/24
--- OUTSIDE RECORDS SUMMARY | 2024-12-31 08:33 | XMS_ITS | CCD ---
Author Organization [facility] Care Team Providers Care Blacktop Spreader Name Role Phone Axel Briggs Unavailable Terra Connor Unavailable Mark Quick Unavailable ABDELRAHMAN, DR RUDD Primary Care Unavailable MCMILLAN ., DR RENETTA Agee Attending Unavailable MCMILLAN ., DR RENETTA Agee Admitting Unavailable MCMILLAN ., DR RENETTA Agee Consulting Unavailable KENNEDY, DANA Foote Consulting Unavailable SISTER, SU Consulting Unavailable [facility] [place] DIXON Attending Unavailable ABDELRAHMAN, DR RUDD Primary Care Unavailable SCENIC, DR TERRA Landers Consulting Unavailable [facility] [place] DIXON Admitting Unavailable AXEL BRIGGS Consulting Unavailable ABDELRAHMAN, DR RUDD Primary Care Unavailable DULCE, DR ESQUIVEL Attending Unavailable DUCLE, DR ESQUIVEL Admitting Unavailable DULCE, DR ESQUIVEL Consulting Unavailable Mulugeta Bella Unavailable DO Mark Quick Primary Care Provider [phone] MD Axel Briggs Attending Provider Axel Briggs Attending Unavailable Axel Briggs Admitting Unavailable Mark Quick Primary Care Unavailable Mark Quick MD Primary Care Provider Mark Quick MD Primary Care Provider Mark Quick DO Primary Care Provider SULMA ESCOBAR Attending Unavailable STERLING CARDONA Attending Unavailable SULMA ESCOBAR Attending Unavailable SULMA ESCOBAR Attending Unavailable SULMA ESCOBAR Attending Unavailable CHELSY PADILLA Attending Unavailable SULMA ESCOBAR Attending Unavailable Allergies Allergy Classification Reported Allergen(s) Allergy Type Date of Onset Reaction(s) Facility (20 sources) moxifloxacin Drug Allergy 11-24-19 [facility] (20 sources) Cephalexin Drug Allergy 11-24-19 24 Rash [facility] (4 sources) Allergies Reconciled Propensity to adverse reactions Unknown Noah Other (4 sources) patient allergy list reviewed by nurse or physicia Propensity to adverse reactions 08-04-19 Comment:Done Noah Other (9 sources) Singulair *ANTIASTHMATIC AND BRONCHODILATOR AGENTS Propensity to adverse reactions 07-02-20 21 Unknown Noah Other (3 sources) Singulair *ANTIASTHMATIC AND B Allergy to substance 11-24-19 Unknown Reaction [facility] Comment on above: Free Text Allergy: S ingulair *ANTIASTHMATIC AND BRONCHODILATOR AGENTS; Onset Date: 07/02/2021 (20 sources) Penicillins Propensity to adverse reactions 05-26-20 23 Rash [facility] (9 sources) Ciprofloxacin Drug Allergy 06-14-20 24 Other [facility] (9 sources) levoFLOXacin Drug Allergy 06-15-20 24 Itching [facility] (2 sources) montelukast Drug Allergy 12-26-19 25 Unknown [facility] Medications Current Medications Medication Drug Class(es) Dates Sig (Normalized) Sig (Original) albuterol 0.83 mg/ml inhalation solution (20 sources) beta2-Adrenergic Agonist Start: 07-05-2024 take 1.25 mg by inhalation every four hours as needed Albuterol Sulfate 2.5 mg /3 mL (0.083 %) solution for nebulization Active 1.25 MG INHALATION Every 4 hours as needed July 05, 2024 1:00am Start: 07-05-2024 take 1 puff(s) by in halation every four hours as needed Albuterol Sulfate 90 mcg/actuation HFA aerosol inhaler Active 2 PUFF INHALATION Q4H as needed July 05, 2024 1:00am Start: 06-02-2021 take 90 ug by inhala tion twice daily Albuterol Active 90 MCG INHALATION Twice daily June 02, 2021 1:00am take 1 puff(s) by in halation every four hours albuterol HFA 90 mcg/act inhaler Inhale 1 puff every 4 (four) hours if needed Active take 1 puff(s) by in halation every four hours as needed Albuterol Sulfate HFA 108 (90 Base) MCG/ACT 1 puff as needed Inhalation every 4 hrs Active take 1 puff(s) by in halation every four hours as needed Albuterol Sulfate HFA 108 (90 Base) MCG/ACT 1 puff as needed Inhalation every 4 hrs Active take 1 puff(s) by in halation every four hours as needed Albuterol Sulfate HFA 108 (90 Base) MCG/ACT 1 puff as needed Inhalation every 4 hrs Active amoxicillin 875 mg / clavulanate 125 mg oral tablet (4 sources) Penicillin-class Antibacterial Start: 08-09-2024 End: 10-17-2024 take 1 tablet by mouth every twelve hours Amoxicillin-Pot Clavulanate 875-125 mg tablet Active 1 TAB PO Every 12 hours 04 02October 17, 2024 4:28pm ascorbic acid 1000 mg oral tablet (20 sources) Vitamin C Start: 06-02-2021 take 1 g by mouth once daily Ascorbic Acid (Vitamin C) (Vitamin C) 1,000 mg Tablet Active 1 GM PO Daily June 02, 2021 1:00am take 1 tablet by mouth once kinsey y Ascorbic Acid (Vitamin C) 500 MG capsule Take 1 tablet by mouth 1 (one) time each day Active take 1 tablet by padma every twenty-four hours Vitamin C 100 MG 1 tablet Orally Once a day Active Vitamin C Active aspirin 81 mg oral tablet (20 sources) Platelet Aggregation Inhibitor, Nonsteroidal Anti-inflammatory Drug Start: 06-02-2021 take 1 capsule by mouth once daily Aspirin 81 mg Capsule Active 81 MG PO Daily June 02, 2021 1:00am take 1 tablet by mouth once kinsey y aspirin 81 MG EC tablet Take 1 tablet by mouth Daily Active Aspirin 81 Activ e benzonatate 200 mg oral capsule (14 sources) Non-narcotic Antitussive Start: 07-06-2024 take 1 capsule by mouth three times daily Benzonatate 200 mg capsule Active 200 MG PO Three times daily 23 05July 06, 2024 1:00am Start: 09-06-2022 take 1 capsule by mo [facility] every eight hours Benzonatate 200 MG 1 capsule Orally Three times a day for Aug, Not-Taking Cetirizine / Pseudoephedrine (20 sources) alpha-Adrenergic Agonist, Histamine-1 Receptor Antagonist Start: 01-16-2024 take 1 tablet by mouth once daily as needed Cetirizine-Pseudoephedrine 5-120 mg tablet extended release 12 hr Active 1 TAB PO Daily January 16, 2024 12:00am FreeTextSi tablet as needed Orally Once a day; Note: Source Status: Taking; Refills: 5; Provider: Abdelrahman Agee Start: 02-11-2023 take 1 tablet by padma every twenty-four hours ZyrTEC-D Allergy & Congestion 5-120 MG 1 tablet as needed Orally Once a day for 30 days Jan, Active cholecalciferol 0.025 mg oral tablet (6 sources) Vitamin D Start: 06-02-2021 take 1 tablet by mouth once daily Cholecalciferol (Vitamin D3) (Vitamin D3) 25 mcg (1,000 unit) Tablet Active 25 MCG PO Daily June 02, 2021 1:00am clobetasol propionate 0.5 mg/ml topical cream (12 sources) Corticosteroid Start: 11-23-2022 End: 06-14-2024 clobetasol (Temovate) 0.05 % cream APPLY THIN LAYER TO HANDS & NAILS DAILY MON-FRI,NO WEEKENDS, UNTIL CLEAR REPEAT NEEDED FOR FLARES 11/23/2022 06/14/2024 Discontinued (Ineffective) doxycycline hyclate 100 mg oral capsule (20 sources) Tetracycline-class Drug Start: 08-31-2024 End: 08-31-2024 take 1 capsule by mouth twice daily Doxycycline Hyclate 100 mg capsule Active 100 MG PO Twice daily 04 02August 31, 2024 6:27pm Start: 06-26-2024 End: 07-05-2024 take 1 capsule by mouth twice daily Doxycycline Hyclate 100 mg capsule Discontinued 100 MG PO Twice daily 04 02June 26, 2024 1:00am July 05, 2024 9:15am Start: 05-09-2024 End: 12-25-2024 take 1 capsule by mouth twice daily doxycycline (Monodox) 100 MG capsule Indications: Bacterial infection Take 1 capsule, by mouth bid, x 10 days 20 capsule 05/09/2024 12/25/2024 Discontinued (Therapy completed) Start: 08-25-2023 take 1 capsule by mo [facility] twice daily Doxycycline Hyclate 100 MG 1 capsule Orally twice daily for 7 days Aug, Active Esomeprazole Magnesium 40 mg capsule,delayed release(DR/EC) (2 sources) Start: 08-23-2024 take 1 capsule by mouth twice daily Esomeprazole Magnesium 40 mg capsule,delayed release(DR/EC) Active 0 .ROUTE .COMPLEX 180 August 23, 2024 8:07am TAKE 1 CAPSULE BY MOUTH TWICE A DAY ON AN EMPTY STOMACH FOLLOWED IN 30 MINUTES BY FOOD 90 fluticasone propionate 0.05 mg/actuat metered dose nasal spray (20 sources) Corticosteroid take 1 spray(s) nasal route once daily fluticasone (Flonase) 50 MCG/ACT nasal spray Administer 1 spray into each nostril Daily Active take 1 spray(s) nasa l route in the morning fluticasone (Flonase) 50 MCG/ACT nasal spray Administer 1 spray into each nostril in the morning. Active 60 actuat fluticasone propionate 0.25 mg/actuat / salmeterol 0.05 mg/actuat dry powder inhaler (20 sources) Corticosteroid, beta2-Adrenergic Agonist Start: 09-19-2024 take 1 puff(s) by inhalation twice daily Fluticasone Propion-Salmeterol 250-50 mcg/dose blister with device Active 0 .ROUTE .COMPLEX 180 September 19, 2024 2:12pm INHALE 1 PUFF INTO THE LUNGS TWICE A DAY Start: 12-12-2023 End: 09-19-2024 take 1 puff(s) by inhalation twice daily Fluticasone Propion-Salmeterol (Wixela Inhub) 250-50 mcg/dose blister with device Discontinued 0 .ROUTE .COMPLEX 180 December 12, 2023 1:24pm September 19, 2024 2:12pm INHALE 1 PUFF INTO THE LUNGS TWICE A DAY FOR 30 DAYS Start: 12-12-2023 End: 01-16-2024 Fluticasone Propion-Salmeter ol (Advair Diskus) 250-50 mcg/dose blister with device Discontinued 1 INH INHALATION Twice daily December 12, 2023 12:00am January 16, 2024 1:24pm Start: 09-16-2023 End: 12-12-2023 Fluticasone Propion-Salmeter ol (Wixela Inhub) 250-50 mcg/dose blister with device Discontinued 1 INH INHALATION Every 12 hours 60 September 16, 2023 1:00am December 12, 2023 1:27pm Start: 04-25-2023 Advair Diskus 250-50 MCG/ACT aerosol powder 04/25/2023 Active Start: 04-25-2023 take 1 puff(s) by in halation twice daily Advair Diskus 250-50 MCG/ACT aerosol powder INHALE 1 PUFF INTO THE LUNGS TWICE A DAY FOR 30 DAYS 04/25/2023 Active Start: 04-21-2023 take 1 puff(s) by in halation twice daily Fluticasone-Salmeterol 250-50 MCG/ACT 1 puff Inhalation Twice a day for 30 days Mar, Active gentamicin 0.001 mg/mg topic al ointment (9 sources) Start: 08-28-2024 gentamicin (Ga ramycin) 0.1 % ointment Indications: Bacterial infection Apply to hands BID prn 15 g 11 08/28/2024 Active Start: 07-26-2024 gentamicin (Ga ramycin) 0.1 % ointment Indications: Bacterial infection Apply to left hand BID x 7 days. 15 g 07/26/2024 Active hydroCHLOROthiazide 12.5 mg / telmisartan 40 mg oral tablet (7 sources) Thiazide Diuretic, Angiotensin 2 Receptor Clarice Start: 08-14-2024 take 1 tablet by mouth once daily telmisartan-hydroCHLOROthiazide (MIcarDIS HCT) 40-12.5 MG tablet Take 1 tablet by mouth Daily 09/13/2024 Active lubiprostone 0.008 mg oral capsule (10 sources) Chloride Channel Activator Start: 04-08-2024 End: 06-14-2024 take 1 capsule by mouth in the morning lubiprostone (Amitiza) 8 MCG capsule Take 8 mcg by mouth in the morning and 8 mcg before bedtime. 04/08/2024 06/14/2024 Discontinued (Med list cleanup) Start: 02-17-2024 End: 04-24-2024 take 1 capsule by mouth twice daily Lubiprostone (Amitiza) 8 mcg capsule Discontinued 8 MCG PO Twice daily 60 February 17, 2024 12:00am April 24, 2024 1:59pm omeprazole 40 mg delayed release oral capsule (20 sources) Proton Pump Inhibitor Start: 04-26-2022 End: 06-14-2024 take 1 capsule by mouth twice daily 30 minutes before mealtime omeprazole (PriLOSEC) [address] capsule TAKE 1 CAPSULE BY MOUTH 30 MINUTES BEFORE MEAL TWICE DAILY FOR 30 DAYS 05/20/2022 06/14/2024 Discontinued (Med list cleanup) Start: 06-02-2021 End: 07-05-2024 take 1 capsule by mouth once daily Omeprazole 40 mg Capsule,Delayed Release(Dr/Ec) Discontinued 40 MG PO Daily June 02, 2021 1:00am July 05, 2024 9:12am paxlovid (300/100) 20 x 150 mg & 10 x 100mg tablet therapy pack (2 sources) Start: 08-29-2023 take 3 tablets by mouth every twelve hours Paxlovid (300/100) 20 x 150 MG & 10 x 100MG 3 tablets Orally Twice a day for 5 days Aug, Active predniSONE 20 mg oral tablet (4 sources) Start: 08-09-2024 Prednisone 20 mg tablet Active 20 MG PO As Directed August 09, 2024 1:00am 1 tab tid w/ food x 3 days, then bid w/ food x 3 days, then qd w/ food x 3 days Start: 07-05-2024 End: 08-09-2024 take 2 tablets by mouth once daily Prednisone 10 mg tablet Discontinued 20 MG PO Daily July 05, 2024 1:00am August 09, 2024 11:58am tacrolimus 0.001 mg/mg topical ointment (18 sources) Calcineurin Inhibitor Immunosuppressant Start: 05-17-2024 End: 05-17-2025 tacrolimus (Protopic) 0.1 % ointment Indications: Encounter for removal of sutures Apply topically 2 (two) times a day 60 g 3 05/17/2024 05/17/2025 Active tamsulosin hydrochloride 0.4 mg oral capsule (20 sources) alpha-Adrenergic Clarice Start: 12-12-2023 End: 03-07-2024 Tamsulosin 0.4 mg capsule Active 0 .ROUTE .COMPLEX 90 March 07, 2024 1:32pm TAKE 1 CAPSULE BY MOUTH 30 MINUTES AFTER EVENING MEAL EVERY NIGHT Start: 10-12-2022 tamsulosin (Fl omax) 0.4 MG 24 hr capsule 10/12/2022 Active Start: 10-12-2022 End: 12-12-2023 tamsulosin (Flomax) 0.4 MG 2 4 hr capsule TAKE 1 CAPSULE BY MOUTH 30 MINUTES AFTER EVENING MEAL EVERY NIGHT 10/12/2022 Active Tamsulosin HCl N ot-Taking Tamsulosin HCl A ctive tazarotene 1 mg/ml topical cream (12 sources) Retinoid Start: 11-24-2022 End: 06-14-2024 tazarotene (Tazorac) 0.1 % cream APPLY TO HANDS DAILY 11/24/2022 06/14/2024 Discontinued (Med list cleanup) terbinafine 250 mg oral tablet (20 sources) Allylamine Antifungal Start: 05-17-2024 End: 08-14-2024 take 1 tablet by mouth once daily terbinafine (LamISIL) 250 MG tablet Indications: Tinea manus Take 1 tablet, by mouth, once daily x 30 days 30 tablet 06/14/2024 Active Vitamin C 100 MG (6 sources) take 1 tablet by mouth once daily Vitamin C 100 MG 1 tablet Orally Once a day Active Vitamin D (17 sources) Vitamin D Active Vitamin D 25 MCG (1000 UT) (6 sources) take 1 tablet by mouth once daily Vitamin D 25 MCG (1000 UT) 1 tablet Orally Once a day Active Completed/Discontinued Medications Medication Drug Class(es) Dates Sig (Normalized) Sig (Original) Albuterol 90 mcg/actuation Aerosol (2 sources) Start: 06-02-2021 End: 01-16-2024 take 90 ug by inhalation twice daily Albuterol 90 mcg/actuation Aerosol Discontinued 90 MCG INHALATION Twice daily June 02, 2021 1:00am January 16, 2024 1:24pm baclofen 20 mg oral tablet (20 sources) gamma-Aminobutyric Acid-ergic Agonist Start: 02-22-2022 End: 12-25-2024 take 1 tablet by mouth twice daily as needed baclofen (Lioresal) 20 MG tablet TAKE 1 TABLET BY MOUTH TWICE A DAY NEEDED FOR 30 DAYS 03/23/2022 12/25/2024 Discontinued (Therapy completed) cefuroxime 500 mg oral tablet (12 sources) Cephalosporin Antibacterial Start: 09-06-2022 take 1 tablet by mouth every twelve hours Cefuroxime Axetil 500 MG 1 tablet Orally every 12 hrs for 5 day(s) Aug, Not-Taking ciprofloxacin 500 mg oral tablet (4 sources) Quinolone Antimicrobial Start: 04-24-2024 End: 07-05-2024 take 1 tablet by mouth twice daily Ciprofloxacin Hcl (Cipro) 500 mg tablet Discontinued 500 MG PO Twice daily 13 05April 24, 2024 12:00am July 05, 2024 9:16am Start: 01-16-2024 End: 02-17-2024 take 1 tablet by mouth twice daily Ciprofloxacin Hcl 500 mg tablet Discontinued 500 MG PO Twice daily 13 05January 16, 2024 12:00am February 17, 2024 8:50am dicyclomine hydrochloride 20 mg oral tablet (20 sources) Anticholinergic Start: 09-24-2022 take 1 tablet by mouth at bedtime Dicyclomine HCl 20 MG 1 tablet Orally AC and HS for 10 days Sep, Not-Taking Start: 03-01-2022 take 1 tablet by padma th three times daily as needed Dicyclomine HCl 20 MG 1 tablet Orally Three times a day as needed for 30 day(s) May, Active diphenhydrAMINE citrate 38 mg / ibuprofen 200 mg oral tablet (3 sources) Histamine-1 Receptor Antagonist, Nonsteroidal Anti-inflammatory Drug Start: 06-02-2021 End: 01-16-2024 take 1 capsule by mouth once daily at bedtime as needed for sleep Ibuprofen-Diphenhydramine Cit (Advil Pm) 200-38 mg Tablet Discontinued 1 CAP PO Daily at bedtime as needed for sleep June 02, 2021 1:00am January 16, 2024 1:24pm esomeprazole 40 mg delayed release oral capsule (20 sources) Proton Pump Inhibitor Start: 04-20-2022 Esomeprazole Magnesium 40 MG 1 capsule Orally twice daily on empty stomach followed in 30 minutes by food for 30 days November, Active Start: 10-19-2017 End: 08-23-2024 take 1 capsule by mouth once daily Esomeprazole Magnesium 40 mg capsule,delayed release(DR/EC) Discontinued 40 MG PO Daily July 05, 2024 1:00am August 23, 2024 8:07am hydroCHLOROthiazide 12.5 mg / lisinopril 10 mg oral tablet (15 sources) Thiazide Diuretic, Angiotensin Converting Enzyme Inhibitor Start: 08-07-2024 End: 08-14-2024 take 1 tablet by mouth once daily Lisinopril-Hydrochlorothiazide 20-25 mg tablet Discontinued 1 TAB PO Daily 90 90 August 07, 2024 1:00am August 14, 2024 11:16am Start: 07-06-2024 End: 12-25-2024 take 1 tablet by mouth once daily lisinopril-hydroCHLOROthiazide 10-12.5 M G tablet Take 1 tablet by mouth Daily 08/06/2024 12/25/2024 Discontinued (Therapy completed) linaclotide 0.145 mg oral capsule (2 sources) Guanylate Cyclase-C Agonist Start: 01-30-2024 End: 02-17-2024 take 1 capsule by mouth once daily Linaclotide (Linzess) 145 mcg capsule Discontinued 145 MCG PO Daily January 30, 2024 12:00am February 17, 2024 8:51am loperamide hydrochloride 2 mg oral capsule (3 sources) Opioid Agonist Start: 06-02-2021 End: 01-16-2024 take 1 capsule by mouth once daily as needed Loperamide 2 mg Capsule Discontinued 2 MG PO Daily as needed for loose stool June 02, 2021 1:00am January 16, 2024 1:24pm montelukast 10 mg oral tablet (3 sources) Leukotriene Receptor Antagonist Start: 06-02-2021 End: 11-24-2023 take 1 tablet by mouth once daily Montelukast 10 mg tablet Discontinued 10 MG PO Daily June 02, 2021 1:00am November 24, 2023 12:27pm Plecanatide (Trulance) 3 mg tablet (2 sources) Start: 01-16-2024 End: 01-30-2024 take 1 tablet by mouth once daily Plecanatide (Trulance) 3 mg tablet Discontinued 3 MG PO Daily January 16, 2024 12:00am January 30, 2024 11:43am polyethylene glycol 3350 10178 mg powder for oral solution (20 sources) Osmotic Laxative Start: 11-24-2023 End: 02-17-2024 Polyethylene Glycol 3350 (Miralax) 17 gram/dose powder Discontinued 17 GM PO Twice daily November 24, 2023 12:00am February 17, 2024 8:51am Take 17 grams in liquid three times a day for constipation Start: 08-25-2023 MiraLax 17 GM/ SCOOP 1 scoop mixed with 8 ounces of fluid Orally Once a day for 30 days Aug, Active Start: 04-20-2022 take 17 g by mouth twice daily Polyethylene Glycol 3350 17 GM/SCOOP 17gm Orally twice a day for 30 day(s) Jun, Not-Taking Start: 04-20-2022 take 17 g by mouth once daily Polyethylene Glycol 3350 17 GM/SCOOP 17gm Orally Once a day for 30 day(s) please dispense largest quantity Mar, Active Polyethylene Glycol 3350 (Miralax) 17 gram/dose powder (3 sources) Start: 11-22-2023 End: 11-24-2023 Polyethylene Glycol 3350 (Miralax) 17 gram/dose powder Discontinued 17 GM PO Three times daily 1530 November 22, 2023 12:00am November 24, 2023 12:29pm Take 17 grams in liquid three times a day for constipation rosuvastatin calcium 20 mg oral tablet (20 sources) HMG-CoA Reductase Inhibitor Start: 06-02-2021 End: 06-14-2024 take 1 tablet by mouth every other day Rosuvastatin 20 mg Tablet Discontinued 20 MG PO .every other day June 02, 2021 1:00am January 16, 2024 1:25pm take 1 tablet by mouth in the ev ening Rosuvastatin Calcium 20 MG TAKE 1 TABLET BY MOUTH IN THE EVENING Active Crestor 20MG Act juan Sod Picosulf-Mag Ox-Citric Ac (3 sources) Start: 11-22-2023 End: 01-16-2024 take 1 mL by mouth once daily Sod Picosulf-Mag Ox-Citric Ac (Clenpiq) 10 mg-3.5 gram- 12 gram/175 mL solution Discontinued 175 ML PO Daily 07 25November 22, 2023 12:00am January 16, 2024 1:25pm please follow instructions provided by Dr. Briggs's office. Start: 11-22-2023 take 1 mL by mouth once daily Sod Picosulf-Mag Ox-Citric Ac (Clenpiq) 10 mg-3.5 gram- 12 gram/175 mL solution Active 175 ML PO Daily 1 November 22, 2023 12:00am please follow instructions provided by Dr. Briggs's office. ubidecarenone 200 mg oral capsule (12 sources) Start: 06-02-2021 End: 01-16-2024 Coenzyme Q10 (Co Q-10) 200 m g Capsule Discontinued 200 MG PO Daily June 02, 2021 1:00am January 16, 2024 1:24pm CoQ10 200 MG as directed Orally Active Zinc (18 sources) Start: 06-02-2021 End: 11-24-2023 take 1 tablet by mouth once daily Zinc 50 mg Tablet Discontinued 50 MG PO Daily June 02, 2021 1:00am November 24, 2023 12:28pm Start: 06-02-2021 End: 11-24-2023 take 50 mg by mouth once daily Zinc Discontinued 50 MG PO Daily June 02, 2021 1:00am November 24, 2023 12:28pm Zinc Not-Taking Zinc Active Problems Active Problems Problem Classification Problem Date Documented Da te Episodic/Chronic Abdominal pain (20 sources) Stomach cramps; Translations: [Unspecified abdominal pain] Onset: 4 Resolved: 0 Episodic Acute and unspecified renal failure (2 sources) Acute kidney failure, unspecified; Translations: [ACUTE KIDNEY FAILURE UNSPECIFIED] Onset: 3 Episodic Acute bronchitis (20 sources) Acute bronchitis due to other specified organisms; Translations: [Acute bronchitis] Onset: 4 Episodic Alcohol-related disorders (9 sources) Alcohol abuse; Translations: [Alcohol abuse, uncomplicated] Chronic Allergic reactions (4 sources) Atopic dermatitis; Translations: [Other atopic dermatitis] 05-31-2024 Chronic Chronic obstructive pulmonary disease and bronchiectasis (20 sources) Chronic obstructive pulmonary disease with acute lower respiratory infection; Translations: [Chronic obstructive pulmonary disease with (acute) lower respiratory infection] Onset: 9 Chronic Disorders of lipid metabolism (20 sources) Familial hypercholesterolemia; Translations: [Familial hypercholesterolemia] Onset: 8 Chronic Diverticulosis and diverticulitis (20 sources) Diverticulitis of colon; Translations: [Diverticulitis of intestine, part unspecified, without perforation or abscess without bleeding] Onset: 9 10-17-2024 Chronic Esophageal disorders (20 sources) Gastroesophageal reflux disease; Translations: [Gastro-esophageal reflux disease without esophagitis] Onset: 5 Chronic Essential hypertension (3 sources) Hypertensive disorder; Translations: [Essential (primary) hypertension] 08-09-2024 Chronic Fluid and electrolyte disorders (2 sources) Dehydration; Translations: [DEHYDRATION] Onset: 3 Episodic Genitourinary symptoms and ill-defined conditions (9 sources) Peterson hematuria; Translations: [Gross hematuria] Episodic Hyperplasia of prostate (20 sources) Lower urinary tract symptoms due to benign prostatic hypertrophy; Translations: [Benign prostatic hyperplasia with lower urinary tract symptoms] Onset: 8 Chronic Immunizations and screening for infectious disease (18 sources) Nonspecific tuberculin test reaction ; Translations: [Nonspecific reaction to tuberculin skin test without active tuberculosis] Episodic Intestinal infection (2 sources) Campylobacter enteritis; Translations: [CAMPYLOBACTER ENTERITIS] Onset: 3 Episodic Mycoses (20 sources) Onychomycosis due to dermatophyte ; Translations: [Dermatophytosis of nail] Onset: 9 05-17-2024 Episodic Neoplasms of unspecified nature or uncertain behavior (2 sources) Neoplastic disease; Translations: [Neoplasm of unspecified behavior of bone, soft tissue, and skin] 12-26-2024 Episodic Osteoarthritis (9 sources) Osteoarthritis; Translations: [Polyosteoarthritis, unspecified] Onset: 4 Chronic Other aftercare (1 source) [facility] (current) use of aspirin; Translations: [GROUP HOME CURRENT USE OF ASPIRIN] Onset: 3 Episodic Other aftercare (1 source) Other long term care social worker (current) drug therapy; Translations: [OTH GROUP HOME CURRENT DRUG THERAPY] Onset: 3 Episodic Other aftercare (9 sources) Long-term current use of drug therapy; Translations: [Other skilled nursing (current) drug therapy] Episodic Other aftercare (2 sources) Removal of sutures done; Translations: [Encounter for removal of sutures] 05-17-2024 Episodic Other aftercare (2 sources) Taking high risk medication; Translations: [Other skilled nursing (current) drug therapy] 06-14-2024 Episodic Other and unspecified benign neoplasm (9 sources) Polyp of colon; Translations: [Polyp of colon] Episodic Other congenital anomalies (20 sources) Congenital anomaly of larynx; 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] Onset: 3 12-16-2022 Chronic Other congenital anomalies (2 sources) Other congenital malformations of larynx Chronic Other disorders of stomach and duodenum (20 sources) Indigestion; Translations: [Functional dyspepsia] Episodic Other disorders of stomach and duodenum (1 source) Functional dyspepsia Episodic Other ear and sense organ disorders (9 sources) Malignant otitis externa; 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, 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 Other ear and sense organ disorders (20 sources) Hearing loss; Translations: [Unspecified hearing loss, unspecified ear] Onset: 1 12-16-2022 Chronic Other ear and sense organ disorders (9 sources) Acute contact otitis externa; Translations: [Acute reactive otitis externa, left ear] Episodic Other ear and sense organ disorders (9 sources) Infective otitis externa; Translations: [Diffuse otitis externa, left ear] Episodic Other gastrointestinal disorders (12 sources) Irritable bowel syndrome characterized by constipation; Translations: [Irritable bowel syndrome with constipation] 11-16-2023 Chronic Other gastrointestinal disorders (4 sources) Irritable bowel syndrome with constipation; Translations: [Irritable bowel syndrome] Chronic Other gastrointestinal disorders (1 source) Irritable bowel syndrome; Translations: [Irritable bowel syndrome without diarrhea] 11-24-2023 Chronic Other gastrointestinal disorders (17 sources) Swollen abdomen; Translations: [Abdominal distension (gaseous)] Episodic Other gastrointestinal disorders (17 sources) Finding of gastrointestinal tract gas; Translations: [Flatulence] Episodic Other gastrointestinal disorders (17 sources) Diarrhea; Translations: [Diarrhea, unspecified] Episodic Other gastrointestinal disorders (20 sources) H/O: gastrointestinal disease; Translations: [Personal history of other diseases of the digestive system] Episodic Other gastrointestinal disorders (20 sources) Constipation; Translations: [Constipation, unspecified] Episodic Other gastrointestinal disorders (17 sources) Constipation alternates with diarrhea; Translations: [Other specified symptoms and signs involving the digestive system and abdomen] Episodic Other gastrointestinal disorders (1 source) Constipation, unspecified Episodic Other gastrointestinal disorders (1 source) Change in bowel habit Episodic Other gastrointestinal disorders (1 source) Other specified symptoms and signs involving the digestive system and abdomen Episodic Other gastrointestinal disorders (19 sources) Functional disorder of intestine; Translations: [Functional intestinal disorder, unspecified] Episodic Other gastrointestinal disorders (5 sources) Diarrhea, unspecified; Translations: [DIARRHEA UNSPECIFIED] Onset: 3 Episodic Other gastrointestinal disorders (3 sources) Personal history of other diseases of the digestive system Episodic Other gastrointestinal disorders (2 sources) Disorder of gastrointestinal tract; Translations: [Other specified diseases of the digestive system] 01-16-2024 Episodic Other lower respiratory disease (12 sources) Chronic cough; Translations: [Chronic cough] 11-03-2024 Episodic Other lower respiratory disease (1 source) Other forms of dyspnea Episodic Other lower respiratory disease (2 sources) Hypoxia; Translations: [Hypoxemia] 07-06-2024 Episodic Other non-epithelial cancer of skin (9 sources) Squamous cell carcinoma of upper extremity; Translations: [Squamous cell carcinoma of skin of unspecified upper limb, including shoulder] Episodic Other nutritional; endocrine; and metabolic disorders (20 sources) Obese class I; Translations: [Body mass index (BMI) 32.0-32.9, adult] Onset: 6 Chronic Other nutritional; endocrine; and metabolic disorders (9 sources) Morbid obesity; Translations: [Morbid (severe) obesity due to excess calories] Onset: 8 Chronic Other nutritional; endocrine; and metabolic disorders (9 sources) Simple obesity ; Translations: [Other obesity due to excess calories] Onset: 6 Chronic Other nutritional; endocrine; and metabolic disorders (9 sources) Obesity; Translations: [Obesity, unspecified] Chronic Other nutritional; endocrine; and metabolic disorders (9 sources) Body mass index 30+ - obesity; Translations: [Body mass index (BMI) 36.0-36.9, adult] Chronic Other nutritional; endocrine; and metabolic disorders (1 source) Morbid (severe) obesity due to excess calories Chronic Other nutritional; endocrine; and metabolic disorders (1 source) Body mass index (BMI) 36.0-36.9, adult Chronic Other screening for suspected conditions (not mental disorders or infectious disease) (11 sources) Encounter for screening for diseases of the blood and blood-forming organs and certain disorders involving the immune mechanism; Translations: [Patient encounter status] Onset: 6 2024 Episodic Other skin disorders (2 sources) Eruption; Translations: [Rash and other nonspecific skin eruption] 05-07-2024 Episodic Other skin disorders (4 sources) Actinic keratosis; Translations: [Actinic keratosis] 05-31-2024 Episodic Other skin disorders (2 sources) Skin tag; Translations: [Other hypertrophic disorders of the skin] 12-26-2024 Episodic Other upper respiratory disease (9 sources) Allergic rhinitis; Translations: [Allergic rhinitis, unspecified] Onset: 5 Chronic Other upper respiratory disease (9 sources) Vasomotor rhinitis; Translations: [Vasomotor rhinitis] Chronic Other upper respiratory disease (20 sources) Chronic rhinitis; Translations: [Chronic rhinitis] Onset: 3 12-16-2022 Chronic Other upper respiratory disease (2 sources) Seasonal allergic rhinitis; Translations: [Other seasonal allergic rhinitis] 10-17-2024 Chronic Other upper respiratory disease (2 sources) Other seasonal allergic rhinitis; Translations: [Allergic rhinitis, cause unspecified] 10-17-2024 Chronic Other upper respiratory infections (20 sources) Sinusitis; Translations: [Chronic sinusitis, unspecified] Onset: 3 12-16-2022 Chronic Other upper respiratory infections (20 sources) Acute maxillary sinusitis; Translations: [Acute maxillary sinusitis, unspecified] Onset: 4 Episodic Otitis media and related conditions (20 sources) Acute suppurative otitis media without spontaneous rupture of ear drum; Translations: [Acute suppurative otitis media without spontaneous rupture of ear drum, left ear] Episodic Pneumonia (except that caused by tuberculosis or sexually transmitted disease) (11 sources) Inactive tuberculosis; 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] 07-05-2024 Episodic Residual codes; unclassified (9 sources) Immunization refused ; Translations: [Immunization not carried out because of patient refusal] Episodic Residual codes; unclassified (20 sources) Tobacco user; Translations: [Tobacco use] Onset: 5 11-03-2024 Episodic Residual codes; unclassified (3 sources) Family history of cancer of colon; Translations: [Family history of malignant neoplasm of digestive organs] 07-06-2023 Episodic Comment on above: Problem List clean-u p per request of Phys. EHR Cmte Spondylosis; intervertebral disc disorders; other back problems (9 sources) Cervical spondylosis without myelopathy; Translations: [Spondylosis without myelopathy or radiculopathy, cervical region] Chronic Sprains and strains (18 sources) Neck sprain; Translations: [Strain of muscle, fascia and tendon at neck level, initial encounter] Episodic Substance-related disorders (20 sources) Nicotine dependence; Translations: [Nicotine dependence, cigarettes, uncomplicated] Onset: 5 Chronic Unclassified (1 source) CONTACT W/AND (SUSP) EXPOS COVID-19; Translations: [CONTACT W/AND (SUSP) EXPOS COVID-19] Onset: 3 Unclassified (9 sources) Exposure to acute respiratory syndrome coronavirus 2; Translations: [Contact with and (suspected) exposure to COVID-19] Viral infection (10 sources) Disease caused by 2019-nCoV; Translations: [COVID-19] Past or Other Problems Problem Classification Problem Date Documented Da te Episodic/Chronic Allergic reactions (18 sources) Allergic contact dermatitis due to plants, except food; Translations: [Allergic contact dermatitis due to plants, except food] Onset: 11-15-2014 Episodic Esophageal disorders (2 sources) Esophageal disorders; Translations: [Gastro-esophageal reflux disease with esophagitis, without bleeding] Inflammation; infection of eye (except that caused by tuberculosis or sexually transmitteddisease) (9 sources) Acute atopic conjunctivitis of left eye; Translations: [Acute atopic conjunctivitis, left eye] Resolved: 04-15-2020 Episodic Influenza (9 sources) Influenza; Translations: [Influenza with other respiratory manifestations] Onset: 09-21-2017 Episodic Malaise and fatigue (9 sources) Malaise and fatigue; Translations: [Other malaise and fatigue] Onset: 09-22-2015 Episodic Nausea and vomiting (9 sources) Nausea; Translations: [Nausea] Onset: 01-29-2014 Episodic Noninfectious gastroenteritis (5 sources) Noninfective gastroenteritis and colitis, unspecified; Translations: [NONINFECTIVE GE AND COLITIS UNS] Onset: 05-28-2022 Episodic Other connective tissue disease (9 sources) Synovitis and tenosynovitis; Translations: [Synovitis and tenosynovitis, unspecified] Onset: 04-19-2014 Episodic Other connective tissue disease (9 sources) Pes anserinus tendinitis and bursitis; Translations: [Pes anserinus tendinitis or bursitis] Onset: 12-09-2014 Episodic Other gastrointestinal disorders (3 sources) Abdominal distension (gaseous); Translations: [ABDOMINAL DISTENSION GASEOUS] Onset: 06-03-2022 Episodic Other gastrointestinal disorders (9 sources) Flatulence, eructation and gas pain; Translations: [Abdominal distension (gaseous)] Onset: 01-20-2016 Episodic Other gastrointestinal disorders (9 sources) Digestive symptom; Translations: [Other symptoms involving digestive system] Onset: 01-20-2016 Episodic Other non-traumatic joint disorders (9 sources) Arthralgia of the lower leg; Translations: [Pain in unspecified knee] Onset: 03-05-2015 Episodic Other skin disorders (9 sources) Localized swelling, mass and lump, unspecified; Translations: [Localized mass] Onset: 12-26-2014 Episodic Skin and subcutaneous tissue infections (9 sources) Cellulitis of right axilla; Translations: [Cellulitis of right axilla] Onset: 12-26-2014 Episodic Superficial injury; contusion (9 sources) Contusion of lower leg; Translations: [Contusion of unspecified lower leg, initial encounter] Onset: 12-09-2014 Episodic Unclassified (9 sources) Long-term current use of drug therapy; Translations: [Long-term (current) use of other medications] Onset: 02-21-2018 Unclassified (1 source) Post COVID-19 condition, 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 Unclassified (2 sources) Latent tuberculosis Unclassified (2 sources) Removal of sutures done 05-17-2024 Results Test Name Value Interpretation Reference Range Facility No Panel Informationon 12-25 [facility] Type of biopsy: tangential Informed consent: discussed [...] yes Amount of lidocaine used: 0.5 cc [facility] Estimated glomerular filtrat ion rate (GFR) non- Americanon 10-25-2024 GFR/1.73 sq M.predicted among non-blacks MDRD (S/P/Bld) [Vol rate/Area] Estimated glomerular filtration rate (GFR) non- Low >=60 mL/min/1.73m 2 [facility] - Chemistry and C hemistry - challengeon 10-25-2024 Creatinine [Mass/Vol] 1.34 mg/dL High 0.70-1.30 [facility] GFR/1.73 sq M.predicted MDRD (S/P/Bld) [Vol rate/Area] mL/min/{1.73_m2} >=60 mL/min/1.73m 2 [facility] No Panel Informationon 05-31 [facility] No Panel Informationon 05-07 Type of biopsy[facility] Informed consent: discussed and consent obtained Informed consent comment: The risks and benefits were discussed. Risks include, but are not limited to, bleeding, infection, scarring, pain, & nerve damage. An opportunity to ask questions prior to the procedure was permitted and questions were answered. Patient was prepped and draped in usual sterile fashion: Area cleansed with alcohol. Anesthesia: the lesion was anesthetized in a standard fashion Anesthetic: 1% lidocaine w/ epinephrine 1-100,000 buffered w/ 8.4% NaHCO3 Punch size: 4 mm (A biopsy by punch method was performed using a dermal punch) Suture size: 4-0 Suture type: nylon Suture type comment: Hemostasis was achieved with suture. Suture removal (days): 10 Hemostasis achieved with: suture Outcome: patient tolerated procedure well Post-procedure details: sterile dressing applied and wound care instructions given Post-procedure details comment: Emphasized the need to contact clinic for any signs of infection, uncontrollable bleeding, or complications. Dressing type: bandage Additional details: Amount of lidocaine used: 1.0 cc Number of sutures used: 2 Photo taken yes [facility] CBC AUTO DIFFon 09-28-2022 BASO # 0.1 103/ul Normal 0.0-0.1 [facility] Comment on above: Performed By: #### C BC #### [facility] [address] [address] [address] Kyle Adamson Basophils/100 WBC (Bld) 0.8 % Normal 0.2-2.0 [facility] Comment on above: Performed By: #### C BC #### [facility] [address] [address] [address] Kyle Adamson EO # 0.2 103/ul Normal 0.0-0.7 [facility] Comment on above: Performed By: #### C BC #### [facility] [address] [place] [address] Dr. Kyle Adamson Eosinophils/100 WBC (Bld) 3.7 % Normal 0.9-7.0 [facility] Comment on above: Performed By: #### C BC #### [facility] [address] [place] [address] Dr. Kyle Adamson Erythrocyte distribution width (RBC) [Ratio] 14.5 % Normal 11.0-15.0 [facility] Comment on above: Performed By: #### C BC #### [facility] [address] [place] [address] Dr. Kyle Adamson Hematocrit (Bld) [Volume fraction] 44.3 % Normal 42.0-54.0 [facility] Comment on above: Performed By: #### C BC #### [facility] [address] [place] [address] Dr. Kyle Adamson Hemoglobin (Bld) [Mass/Vol] 14.9 g/dL Normal 14.0-18.0 [facility] Comment on above: Performed By: #### C BC #### [facility] [address] [place] [address] Dr. Kyle Adamson IG # 0.06 10e3/ul Critically high 0.00-0.03 [facility] Comment on above: Performed By: #### C BC #### [facility] [address] [place] [address] Dr. Kyle Adamson IG % 0.9 % Critically high 0.0-0.5 [facility] Comment on above: Performed By: #### C BC #### [facility] [address] [place] [address] Dr. Kyle Adamson LYMPH # 2.3 103/ul Normal 1.2-3.8 [facility] Comment on above: Performed By: #### C BC #### [facility] [address] [place] [address] Dr. Kyle Adamson Lymphocytes/100 WBC (Bld) 35.9 % Normal 20.5-60.0 [facility] Comment on above: Performed By: #### C BC #### [facility] [address] [place] [address] Dr. Kyle Adamson MANUAL DIFF REQ NO Normal [facility] Comment on above: Performed By: #### C BC #### [facility] [address] [place] [address] Dr. Kyle Adamson MCH (RBC) [Entitic mass] 29.7 pg Normal 25.9-34.0 [facility] Comment on above: Performed By: #### C BC #### [facility] [address] [place] [address] Dr. Kyle Adamson MCHC (RBC) [Mass/Vol] 33.6 g/dL Normal 29.9-35.2 [facility] Comment on above: Performed By: #### C BC #### [facility] [address] [place] [address] Dr. Kyle Adamson MCV (RBC) [Entitic vol] 88.2 fL Normal 80.0-94.0 [facility] Comment on above: Performed By: #### C BC #### [facility] [address] [place] [address] Dr. Kyle Adamson MONO # 1.3 103/ul Critically high 0.3-0.8 [facility] Comment on above: Performed By: #### C BC #### [facility] [address] [place] [address] Dr. Kyle Adamson Monocytes/100 WBC (Bld) 19.3 % Critically high 1.7-12.0 [facility] Comment on above: Performed By: #### C BC #### [facility] [address] [place] [address] Dr. Kyle Adamson NEUT # 2.6 103/ul Normal 1.4-6.5 [facility] Comment on above: Performed By: #### C BC #### [facility] [address] [place] [address] Dr. Kyle Adamson Neutrophils/100 WBC (Bld) 39.4 % Critically low 43.0-75.0 [facility] Comment on above: Performed By: #### C BC #### [facility] [address] [place] [address] Dr. Kyle Adamson Platelet mean volume (Bld) [Entitic vol] 9.5 fL Normal 9.5-13.5 [facility] Comment on above: Performed By: #### C BC #### [facility] [address] [place] [address] Dr. Kyle Adamson PLT 287 103/ul Normal 150-450 [facility] Comment on above: Performed By: #### C BC #### [facility] [address] [place] [address] Dr. Kyle Adamson RBC 5.02 106/ul Normal 4.70-6.10 [facility] Comment on above: Performed By: #### C BC #### [facility] [address] [place] [address] Dr. Kyle Adamson WBC 6.5 103/ul Normal 4.0-11.0 [facility] Comment on above: Performed By: #### C BC #### [facility] [address] [place] [address] Dr. Kyle Adamson PROF CHEM 8 (BAS METB)on Anion gap [Moles/Vol] 12.4 mmol/L Normal [facility] Comment on above: Performed By: #### B MP #### [facility] [address] [place] [address] Dr. Kyle Adamson Calcium [Mass/Vol] 8.6 mg/dL Normal 8.5-10.1 [facility] Comment on above: Performed By: #### B MP #### [facility] [address] [address] [address] Kyle Adamson Chloride [Moles/Vol] 105 mmol/L Normal 98-107 [facility] Comment on above: Performed By: #### B MP #### [facility] [address] [address] [address] Kyle Adamson CO2 [Moles/Vol] 24.8 mmol/L Normal 21.0-32.0 [facility] Comment on above: Performed By: #### B MP #### [facility] [address] [place] [address] Dr. Kyle Adamson Creatinine [Mass/Vol] 1.30 mg/dL Normal 0.70-1.30 [facility] Comment on above: Performed By: #### B MP #### [facility] [address] [address] [address] Kyle Adamson EGFR-AF VINCENTIAN >60 Normal >=60 [facility] Comment on above: Performed By: #### B MP #### [facility] [address] [address] [address] Kyle Adamson EGFR-NON AF VINCENTIAN 56 mL/min/1.73m2 Critically low >=60 [facility] Comment on above: Performed By: #### B MP #### [facility] [address] [address] [address] Kyle Adamson Glucose [Mass/Vol] 109 mg/dL Critically high 74-106 [facility] Comment on above: Performed By: #### B MP #### [facility] [address] [address] [address] Kyle Adamson Potassium [Moles/Vol] 4.2 mmol/L Normal 3.5-5.1 [facility] Comment on above: Performed By: #### B MP #### [facility] [address] [place] [address] Dr. Kyle Adamson Sodium [Moles/Vol] 138 mmol/L Normal 136-145 [facility] Comment on above: Performed By: #### B MP #### [facility] [address] [place] [address] Dr. Kyle Adamson Urea nitrogen [Mass/Vol] 23.0 mg/dL Critically high 7.0-18.0 [facility] Comment on above: Performed By: #### B MP #### [facility] [address] [place] [address] Dr. Kyle Adamson Urea nitrogen/Creatinine [Mass ratio] 17.7 mg/mg Normal [facility] Comment on above: Performed By: #### B MP #### [facility] [address] [place] [address] Dr. Kyle Adamson CBC AUTO DIFFon 09-27-2022 BASO # 0.1 103/ul Normal 0.0-0.1 [facility] Comment on above: Performed By: #### C BC #### [facility] [address] [place] [address] Dr. Kyle Adamson Basophils/100 WBC (Bld) 1.0 % Normal 0.2-2.0 [facility] Comment on above: Performed By: #### C BC #### [facility] [address] [place] [address] Dr. Kyle Adamson EO # 0.3 103/ul Normal 0.0-0.7 [facility] Comment on above: Performed By: #### C BC #### [facility] [address] [place] [address] Dr. Kyle Adamson Eosinophils/100 WBC (Bld) 3.7 % Normal 0.9-7.0 [facility] Comment on above: Performed By: #### C BC #### [facility] [address] [place] [address] Dr. Kyle Adamson Erythrocyte distribution width (RBC) [Ratio] 14.6 % Normal 11.0-15.0 [facility] Comment on above: Performed By: #### C BC #### [facility] [address] [place] [address] Dr. Kyle Adamson Hematocrit (Bld) [Volume fraction] 51.9 % Normal 42.0-54.0 [facility] Comment on above: Performed By: #### C BC #### [facility] [address] [address] [address] Kyle Adamson Hemoglobin (Bld) [Mass/Vol] 17.9 g/dL Normal 14.0-18.0 [facility] Comment on above: Performed By: #### C BC #### [facility] [address] [address] [address] Kyle Adamson IG # 0.03 10e3/ul Normal 0.00-0.03 [facility] Comment on above: Performed By: #### C BC #### [facility] [address] [place] [address] Dr. Kyle Adamson IG % 0.4 % Normal 0.0-0.5 [facility] Comment on above: Performed By: #### C BC #### [facility] [address] [place] [address] Dr. Kyle Adamson LYMPH # 2.4 103/ul Normal 1.2-3.8 [facility] Comment on above: Performed By: #### C BC #### [facility] [address] [place] [address] Dr. Kyle Adamson Lymphocytes/100 WBC (Bld) 33.1 % Normal 20.5-60.0 [facility] Comment on above: Performed By: #### C BC #### [facility] [address] [place] [address] Dr. Kyle Adamson MANUAL DIFF REQ NO Normal [facility] Comment on above: Performed By: #### C BC #### [facility] [address] [place] [address] Dr. Kyle Adamson MCH (RBC) [Entitic mass] 30.1 pg Normal 25.9-34.0 [facility] Comment on above: Performed By: #### C BC #### [facility] [address] [place] [address] Dr. Kyle Adamson MCHC (RBC) [Mass/Vol] 34.5 g/dL Normal 29.9-35.2 [facility] Comment on above: Performed By: #### C BC #### [facility] [address] [address] [address] Kyle Adamson MCV (RBC) [Entitic vol] 87.4 fL Normal 80.0-94.0 [facility] Comment on above: Performed By: #### C BC #### [facility] [address] [address] [address] Kyle Adamson MONO # 1.6 103/ul Critically high 0.3-0.8 [facility] Comment on above: Performed By: #### C BC #### [facility] [address] [address] [address] Kyle Adamson Monocytes/100 WBC (Bld) 22.1 % Critically high 1.7-12.0 [facility] Comment on above: Performed By: #### C BC #### [facility] [address] [address] [address] Kyle Adamson NEUT # 2.8 103/ul Normal 1.4-6.5 [facility] Comment on above: Performed By: #### C BC #### [facility] [address] [place] [address] Dr. Kyle Adamson Neutrophils/100 WBC (Bld) 39.7 % Critically low 43.0-75.0 [facility] [facility] Comment on above: Performed By: #### C BC #### [facility] [address] [address] [address] Kyle Adamson Platelet mean volume (Bld) [Entitic vol] 9.3 fL Critically low 9.5-13.5 [facility] Comment on above: Performed By: #### C BC #### [facility] [address] [place] [address] Dr. Kyle Adamson PLT 282 103/ul Normal 150-450 [facility] Comment on above: Performed By: #### C BC #### [facility] [address] [address] [address] Kyle Adamson RBC 5.94 106/ul Normal 4.70-6.10 [facility] Comment on above: Performed By: #### C BC #### [facility] [address] [place] [address] Dr. Kyle Adamson WBC 7.1 103/ul Normal 4.0-11.0 [facility] Comment on above: Performed By: #### C BC #### [facility] [address] [place] [address] Dr. Kyle Adamson Covid-19 PCR (CVDTBH)on SARS-CoV-2 (COVID-19) RNA RADHA+probe Ql (Unsp spec) Not detected Normal NOT DETECTED [facility] Comment on above: Result Comment: When diagnostic testing is negative, the possibility of a false negative should be considered in the context of a patient's recent exposures and the presence of clinical signs and symptoms consistent with SARS-CoV-2. This test is not yet approved or cleared by the [place] FDA. When there are no FDA-approved or cleared tests available, and other criteria are met, FDA can make tests available under an emergency access mechanism called an Emergency Use Authorization (EUA). The EUA for this test is supported by the [place] of Health and Human Service's declaration that circumstances exist to justify the emergency use of in vitro diagnostics for the detection and/or diagnosis of the virus that causes COVID-19. This EUA will remain in effect for the duration of the COVID-19 declaration justifying emergency of IVDs, unless it is terminated or revoked by the FDA (after which the test may no longer be used). Performed By: #### C VDTBH #### [facility] [address] [place] [address] Dr. Kyle Adamson GI PANEL (PCR)on 09-27-2022 Adenovirus F 40/41 Not detected Normal NOT DETECTED [facility] Comment on above: Performed By: #### G IPANEL #### [facility] [address] [place] [address] Dr. Kyle Adamson Astrovirus Not detected Normal NOT DETECTED [facility] Comment on above: Performed By: #### G IPANEL #### [facility] [address] [place] [address] Dr. Kyle Adamson C. Diff toxin A/B Not detected Normal NOT DETECTED [facility] Comment on above: Performed By: #### G IPANEL #### [facility] [address] [address] [address] Kyle Adamson Campylobacter Detected Critically abnormal NOT DETECTED [facility] Comment on above: Performed By: #### G IPANEL #### [facility] [address] [address] [address] Kyle Adamson Cryptosporidium Not detected Normal NOT DETECTED [facility] Comment on above: Performed By: #### G IPANEL #### [facility] [address] [address] [address] Kyle Adamson Cyclos. Cayetanensis Not detected Normal NOT DETECTED [facility] Comment on above: Performed By: #### G IPANEL #### [facility] [address] [place] [address] Dr. Kyle Adamson E. Coli O157 Not Applicable Normal Not Applicable [facility] Comment on above: Performed By: #### G IPANEL #### [facility] [address] [address] [address] Kyle Adamson E. histolytica Not detected Normal NOT DETECTED [facility] Comment on above: Performed By: #### G IPANEL #### [facility] [address] [place] [address] Dr. Kyle Adamson EAEC Not detected Normal NOT DETECTED [facility] Comment on above: Performed By: #### G IPANEL #### [facility] [address] [place] [address] Dr. Kyle Adamson EIEC Not detected Normal NOT DETECTED [facility] Comment on above: Performed By: #### G IPANEL #### [facility] [address] [place] [address] Dr. Kyle Adamson EPEC Not detected Normal NOT DETECTED [facility] Comment on above: Performed By: #### G IPANEL #### [facility] [address] [place] [address] Dr. Kyle Adamson ETEC Not detected Normal NOT DETECTED [facility] Comment on above: Performed By: #### G IPANEL #### [facility] [address] [place] [address] Dr. Kyle Renee Lamblia Not detected Normal NOT DETECTED [facility] Comment on above: Performed By: #### G IPANEL #### [facility] [address] [address] [address] Kyle BOWDEN CONTROLS PASSED Normal [facility] Comment on above: Performed By: #### G IPANEL #### [facility] [address] [address] [address] Kyle DENSON HEADER GI PANEL BACTERIA Normal T [facility] Comment on above: Performed By: #### G IPANEL #### [facility] [address] [address] [address] Kyle BENITEZ ECOLI GI PANEL DIARRHEAGEN IC E.COLI / SHIGELLA Normal [facility] Comment on above: Performed By: #### G IPANEL #### [facility] [address] [place] [address] Dr. Kyle BENITEZ INFO SEE BELOW Normal [facility] Comment on above: Result Comment: EAEC - Enteroaggregative E. Coli EPEC- Enteropathogenic E. Coli ETEC- Enterotoxigenic E. Coli lt/st STEC- Shigella-like toxin-producing E. Coli stx1/stx2 EIEC- Shigella/Enteroinvasive E. Coli Performed By: #### G IPANEL #### [facility] [address] [place] [address] Dr. Kyle BENITEZ PARASITES GI PANEL PARASITES Normal [facility] Comment on above: Performed By: #### G IPANEL #### [facility] [address] [place] [address] Dr. Kyle BENITEZ VIRUS GI PANEL VIRUSES Normal [facility] Comment on above: Performed By: #### G IPANEL #### [facility] [address] [place] [address] Dr. Kyle Adamson Norovirus GI/GII Not detected Normal NOT DETECTED [facility] Comment on above: Performed By: #### G IPANEL #### [facility] [address] [place] [address] Dr. Yilan Adamson P. Shigelloides Not detected Normal NOT DETECTED [facility] Comment on above: Performed By: #### G IPANEL #### [facility] [address] [place] [address] Dr. Kyle Adamson Rotavirus A Not detected Normal NOT DETECTED [facility] Comment on above: Performed By: #### G IPANEL #### [facility] [address] [place] [address] Dr. Kyle Adamson Salmonella Not detected Normal NOT DETECTED [facility] Comment on above: Performed By: #### G IPANEL #### [facility] [address] [place] [address] Dr. Kyle Adamson Sapovirus Not detected Normal NOT DETECTED [facility] Comment on above: Performed By: #### G IPANEL #### [facility] [address] [place] [address] Dr. Kyle Adamson STEC Not detected Normal NOT DETECTED [facility] Comment on above: Performed By: #### G IPANEL #### [facility] [address] [place] [address] Dr. Kyle Adamson Vibrio Not detected Normal NOT DETECTED [facility] Comment on above: Performed By: #### G IPANEL #### [facility] [address] [place] [address] Dr. Kyle Adamson Vibrio Cholera Not detected Normal NOT DETECTED [facility] Comment on above: Performed By: #### G IPANEL #### [facility] [address] [place] [address] Dr. Kyle Adamson Y. Enterocolitica Not detected Normal NOT DETECTED [facility] Comment on above: Performed By: #### G IPANEL #### [facility] [address] [place] [address] Dr. Kyle Adamson PROF CHEM 8 (BAS METB)on Anion gap [Moles/Vol] 17.9 mmol/L Normal [facility] Comment on above: Performed By: #### B MP #### [facility] [address] [place] [address] Dr. Kyle Adamson Calcium [Mass/Vol] 9.6 mg/dL Normal 8.5-10.1 [facility] Comment on above: Performed By: #### B MP #### [facility] [address] [address] [address] Kyle Adamson Chloride [Moles/Vol] 98 mmol/L Normal 98-107 [facility] Comment on above: Performed By: #### B MP #### [facility] [address] [place] [address] Dr. Kyle Adamson CO2 [Moles/Vol] 24.4 mmol/L Normal 21.0-32.0 [facility] Comment on above: Performed By: #### B MP #### [facility] [address] [place] [address] Dr. Kyle Adamson Creatinine [Mass/Vol] 1.65 mg/dL Critically high 0.70-1.30 [facility] Comment on above: Performed By: #### B MP #### [facility] [address] [place] [address] Dr. Kyle Adamson EGFR-AF VINCENTIAN 52 mL/min/1.73m2 Critically low >=60 [facility] Comment on above: Performed By: #### B MP #### [facility] [address] [place] [address] Dr. Kyle Adamson EGFR-NON AF VINCENTIAN 43 mL/min/1.73m2 Critically low >=60 [facility] Comment on above: Performed By: #### B MP #### [facility] [address] [place] [address] Dr. Kyle Adamson Glucose [Mass/Vol] 124 mg/dL Critically high 74-106 [facility] Comment on above: Performed By: #### B MP #### [facility] [address] [address] [address] Kyle Adamson Potassium [Moles/Vol] 4.3 mmol/L Normal 3.5-5.1 [facility] Comment on above: Performed By: #### B MP #### [facility] [address] [place] [address] Dr. Kyle Adamson Sodium [Moles/Vol] 136 mmol/L Normal 136-145 [facility] Comment on above: Performed By: #### B MP #### [facility] [address] [address] [address] Kyle Adamson Urea nitrogen [Mass/Vol] 31.0 mg/dL Critically high 7.0-18.0 [facility] Comment on above: Performed By: #### B MP #### [facility] [address] [address] [address] Kyle Adamson Urea nitrogen/Creatinine [Mass ratio] 18.8 mg/mg Normal [facility] Comment on above: Performed By: #### B MP #### [facility] [address] [address] [address] ABD/PELV W CONon 05-31-20 CT ABD/PELV W CON EXAMINATION: CT ABD/PELV W CON, 05/28/2022 11:26 AM EDT HISTORY: Noninfectious gastroenteritis COMPARISON: 08/29/2021 TECHNIQUE: CT scan of the abdomen and pelvis was performed with IV contrast. CT dose reduction technique was used, including Automated Exposure Control. FINDINGS: LUNG BASES: No visible pulmonary or pleural disease. LIVER: No enlargement, atrophy, abnormal density, or significant focal lesion. BILIARY: No dilatation or calcification. PANCREAS: No lesion, fluid collection, ductal dilatation, or atrophy. SPLEEN: No enlargement or focal lesion. ADRENALS: No mass or enlargement. KIDNEYS: No mass, obstruction, or calcification. BOWEL/MESENTERY: No visible mass, obstruction, or bowel wall thickening. AORTA/VASCULAR: No aortic aneurysm or dissection. Mild to moderate atherosclerosis RETROPERITONEUM: No mass or adenopathy. LYMPH NODES: No adenopathy. URINARY BLADDER: No visible focal wall thickening, lesion, or calculus. PELVIC ORGANS: Mildly heterogeneous prostate gland with central calcifications. Vascular phleboliths. ABDOMINAL WALL: No mass or hernia. BONES: Serpiginous sclerosis of the right femoral head consistent with avascular necrosis or degenerative changes of the spine OTHER: Negative. IMPRESSION: No acute intraperitoneal abnormality Electronically authenticated by: TERRA GUNTER Date: 2022-05-31 07:13 Normal [facility] CREATININEon 05-28-2022 Creatinine [Mass/Vol] 0.95 mg/dL Normal 0.70-1.30 [facility] Comment on above: Performed By: #### C BRADEN #### [facility] [address] [place], [place] [address] Dr. Kyle Adamson EGFR-AF VINCENTIAN >60 Normal >=60 [facility] Comment on above: Performed By: #### C BRADEN #### [facility] [address] [place], [place] [address] Dr. Kyle Adamson EGFR-NON AF VINCENTIAN >60 Normal >=60 [facility] Comment on above: Performed By: #### C BRADEN #### [facility] [address] [place], [place] [address] Sinus w/o Contrast*on CT Sinus w/o Contrast* CLINICAL HISTORY: Sinus drainage. No prior surgery. COMPARISON: None. TECHNIQUE: Multiple contiguous axial images of the paranasal sinuses were obtained without contrast enhancement. Multiplanar reformatted images were acquired at the CT console. All CT scans at this facility use dose modulation, iterative reconstruction, and/or weight based dosing when appropriate to reduce radiation dose to as low as reasonably achievable. FINDINGS: MAXILLARY SINUSES: Clear. SPHENOID SINUSES: Clear. FRONTAL SINUSES: Clear. ETHMOID AIR CELLS: There is mucosal thickening within the ethmoid sinuses, more pronounced on the left side. MIDDLE EAR CAVITIES: Clear. NASAL SEPTUM: Minimal deviation of nasal septum to the right. No significant rhinitis. BONY STRUCTURES: No evidence of osseous destruction. MASTOID AIR CELLS: Clear. MISC: Ostiomeatal units are clear bilaterally. Atherosclerotic calcifications in the carotid siphon arteries. Degenerative changes atlantoaxial joint. IMPRESSION: MUCOSAL THICKENING ETHMOID SINUSES. NO AIR-FLUID LEVELS TO INDICATE ACUTE SINUSITIS. Report reported and signed by Elda Mills on 02/08/2022 0855 Normal [facility] Basic Metabolic Panelon 05-1 Anion gap [Moles/Vol] 17 mmol/L Normal 12-20 [facility] Comment on above: Result Comment: Effe ctive 07/30/2019 reference range changed. Performed By: #### B MP #### [facility] [address] [place], [place] [id number] Calcium [Mass/Vol] 9.6 mg/dL Normal 8.6-10.2 [facility] Comment on above: Performed By: #### B MP #### [facility] [address] [place], [place] [id number] Chloride [Moles/Vol] 103 mmol/L Normal 98-107 [facility] Comment on above: Performed By: #### B MP #### [facility] [address], [place] [id number] CO2 [Moles/Vol] 23 mmol/L Normal 20-31 [facility] Comment on above: Performed By: #### B MP #### [facility] [address] [place], [place] [id number] Creatinine [Mass/Vol] 0.9 mg/dL Normal 0.7-1.4 [facility] Comment on above: Performed By: #### B MP #### [facility] [address] [place], [place] [id number] eGFRAA 111 mL/min/1.73m2 Normal >[address] [facility] Comment on above: Performed By: #### B MP #### [facility] [address] [place], [place] [id number] eGFRNAA 92 mL/min/1.73m2 Normal >60 [facility] Comment on above: Performed By: #### B MP #### [facility] [address] [place], [place] [id number] Glucose [Mass/Vol] 113 mg/dL High 65-99 [facility] Comment on above: Result Comment: For FASTING Glucose --- ADA reference ranges: Normal 65-99 mg/dl Prediabetes 100-125 Diabetes >/= 126 Performed By: #### B MP #### [facility] [address] [place], [place] [id number] Potassium [Moles/Vol] 5.0 mmol/L Normal 3.5-5.5 [facility] Comment on above: Result Comment: Spec imen is hemolyzed. Results may be affected. Performed By: #### B MP #### [facility] [address] [place], [place] [id number] Sodium [Moles/Vol] 138 mmol/L Normal 135-146 [facility] Comment on above: Performed By: #### B MP #### [facility] [address] [place], [place] [id number] Urea nitrogen [Mass/Vol] 14 mg/dL Normal 7-25 [facility] Comment on above: Performed By: #### B MP #### [facility] [address] [place], [place] [id number] Vital Signs Date Time Vital Sign Value Performing Clinician Facility 11-02-2024 09:15-0400 Body height 185.4 cm Sterling Livefyretony DO Work Phone: [facility] 11-02-2024 09:15-0400 Body mass index (BMI) [Ratio] 36.28 kg/m2 Sterling Elastra DO Work Phone: [facility] 11-02-2024 09:15-0400 Body weight 124.74 kg Sterling Elastra DO Work Phone: [facility] 10-17-2024 15:56-0400 Body height 185.42 cm [facility] 10-17-2024 15:56-0400 Body mass index (BMI) [Ratio] 37.3 kg/m2 [facility] 10-17-2024 15:56-0400 Body weight 128.48 kg [facility] 10-17-2024 15:56-0400 Diastolic blood pressure 81 mm[Hg] [facility] 10-17-2024 15:56-0400 Heart rate 80 /min [facility] 10-17-2024 15:56-0400 Respiratory rate 12 /min [facility] 10-17-2024 15:56-0400 Systolic blood pressure 117 mm[Hg] [facility] 08-09-2024 10:10-0500 Body height 185.42 cm [facility] 08-09-2024 10:10-0500 Body mass index (BMI) [Ratio] 36.8 kg/m2 [facility] 08-09-2024 10:10-0500 Body weight 126.6 kg [facility] 08-09-2024 10:10-0500 Diastolic blood pressure 80 mm[Hg] [facility] 08-09-2024 10:10-0500 Heart rate 89 /min [facility] 08-09-2024 10:10-0500 Respiratory rate 12 /min [facility] 08-09-2024 10:10-0500 Systolic blood pressure 113 mm[Hg] [facility] 11-28-2023 10:57-0400 Diastolic blood pressure 90 mm[Hg] DO Mark Ball Work Phone: [facility] 11-28-2023 10:57-0400 Heart rate 75 /min DO Mark Ball Work Phone: [facility] 11-28-2023 10:57-0400 Respiratory rate 18 /min DO Mark Ball Work Phone: [facility] 11-28-2023 10:57-0400 SaO2% (BldA) [Mass fraction] 98 % DO Mark Ball Work Phone: [facility] 11-28-2023 10:57-0400 Systolic blood pressure 128 mm[Hg] DO Mark Ball Work Phone: [facility] 11-28-2023 09:16-0400 Body height 185.42 cm DO Mark Ball Work Phone: [facility] 11-28-2023 09:16-0400 Body weight 121.56 kg DO Mark Ball Work Phone: [facility] 05-16-2023 14:45-0400 Body height 185.42 cm Mulugeta Bella Other [facility] [email or web address] Other 05-16-2023 14:45-0400 Body mass index (BMI) [Ratio] 36.15 kg/m2 Mulugeta Bella Other [facility] [email or web address] Other 05-16-2023 14:45-0400 Body temperature 97.9 [degF] Mulugeta Bella Other [facility] [facility] [email or web address] Other 05-16-2023 14:45-0400 Body weight 124.29 kg Mulugeta Bella Other [facility] Other 05-16-2023 14:45-0400 Diastolic blood pressure 71 mm[Hg] Mulugeta Bella Other [facility] Other 05-16-2023 14:45-0400 Systolic blood pressure 129 mm[Hg] Mulugeta Bella Other [facility] Other 05-13-2023 10:30-0400 Body height 185.42 cm Mark Ball Other [facility] Other 05-13-2023 10:30-0400 Body mass index (BMI) [Ratio] 36.62 kg/m2 Mark Ball Other [facility] Other 05-13-2023 10:30-0400 Body weight 125.92 kg Mark Ball Other [facility] Other 05-13-2023 10:30-0400 Diastolic blood pressure 87 mm[Hg] Mark Ball Other [facility] Other 05-13-2023 10:30-0400 Respiratory rate 12 /min Mark Ball Other [facility] Other 05-13-2023 10:30-0400 Systolic blood pressure 134 mm[Hg] Mark Ball Other [facility] Other 10-01-2022 11:30-0500 Body height 185.42 cm Mark Ball Other [facility] Other 10-01-2022 11:30-0500 Body mass index (BMI) [Ratio] 36.15 kg/m2 Mark Ball Other [facility] Other 10-01-2022 11:30-0500 Body weight 124.29 kg Mark Ball Other [facility] Other 10-01-2022 11:30-0500 Diastolic blood pressure 84 mm[Hg] Mark Ball Other [facility] Other 10-01-2022 11:30-0500 Systolic blood pressure 135 mm[Hg] Mark Ball Other [facility] Other 04-20-2022 10:45-0400 Body height 185.42 cm Axel Briggs Other [facility] Other 04-20-2022 10:45-0400 Body mass index (BMI) [Ratio] 36.28 kg/m2 Axel Briggs Other [facility] Other 04-20-2022 10:45-0400 Body weight 124.74 kg Axel Blasjayne Other [facility] Other 04-20-2022 10:45-0400 Diastolic blood pressure 104 mm[Hg] Axel Blasy Other [facility] Other 04-20-2022 10:45-0400 Systolic blood pressure 106 mm[Hg] Axel Briggs Other [facility] Other 02-10-2022 17:30-0400 Body height 185.42 cm Terra Connor Other [facility] Other 02-10-2022 17:30-0400 Body mass index (BMI) [Ratio] 35.09 kg/m2 Terra Connor Other [facility] Other 02-10-2022 17:30-0400 Body weight 120.66 kg Terra Connor Other [facility] [email or web address] Other Encounters Encounter Date Encounter Type Care Provider Facility Start: 12-25-2024 End: 12-25-2024 Office outpatient visit 25 minutes Chelsy Padilla MD Work Phone: [facility] Comment on above: Tinea manuum (Primar y Dx); Skin tag; Neoplasm of unspecified behavior of bone, soft tissue, and skin; Actinic keratosis Start: 12-25-2024 End: 12-25-2024 ambulatory CHELSY PADILLA Not Available Start: 12-18-2024 End: 12-18-2024 Telephone encounter Mark Anuel Abdelrahman DO Work Phone: [facility] Start: 11-09-2024 ambulatory [facility] Work Phone: Start: 11-09-2024 Non-patient / Non-visit [facility] Work Phone: Start: 11-02-2024 End: 11-02-2024 Bamboo flowsheet Sterling Cardona DO Work Phone: [facility] Start: 11-02-2024 End: 11-02-2024 Bamboo flowsheet Sterling Cardona DO Work Phone: [facility] Start: 11-02-2024 End: 11-02-2024 ambulatory STERLING CARDONA Not Available Start: 11-02-2024 End: 11-02-2024 Office outpatient visit 25 minutes Sterling Cardona DO Work Phone: [facility] Comment on above: Chronic cough (Prima ry Dx); Chronic rhinitis; Tobacco abuse; Laryngopharyngeal reflux (LPR) Start: 10-25-2024 Non-patient / Non-visit [facility] Phys[facility] Work Phone: Start: 10-17-2024 End: 10-17-2024 ambulatory [facility] Work Phone: Start: 10-17-2024 End: 10-17-[address] [facility] Work Phone: Start: 08-14-2024 End: 08-14-2024 Bamboo flowsheet Sulma A Felter [employer] Work Phone: [facility] Start: 08-14-2024 End: 08-14-2024 Bamboo flowsheet Sulma A Felter [employer] Work Phone: [facility] Start: 08-14-2024 End: 08-14-2024 Office outpatient visit 10 minutes Sulma A Felter [employer] Work Phone: [facility] Comment on above: Tinea manus Start: 08-14-2024 End: 08-14-2024 ambulatory SULMA A FELTER Not Available Start: 08-09-2024 End: 08-09-[address] [facility] Work Phone: Start: 06-14-2024 End: 06-14-2024 Bamboo flowsheet Sulma A Felter [employer] Work Phone: [facility] Start: 06-14-2024 End: 06-14-2024 Bamboo flowsheet Sulma A Felter [employer] Work Phone: [facility] Start: 06-14-2024 End: 06-14-2024 Telephone encounter Sulma A Felter [employer] Work Phone: [facility] Start: 06-14-2024 End: 06-14-2024 Office outpatient visit 15 minutes Sulma A Felter [employer] Work Phone: [facility] Comment on above: Tinea manus; High risk medication use; Other atopic dermatitis Start: 06-14-2024 End: 06-14-2024 ambulatory SULAM A FELTER Not Available Start: 05-31-2024 End: 05-31-2024 Bamboo flowsheet Sulma A Felter PAYROLL MANAGER-COMPUTER SCIENCE INTERN Work Phone: [facility] Start: 05-31-2024 End: 05-31-2024 Bamboo flowsheet Sulma A Felter PAYROLL MANAGER-COMPUTER SCIENCE INTERN Work Phone: [facility] Start: 05-31-2024 End: 05-31-2024 Office outpatient visit 15 minutes Sulma Ontiveros Felter PAYROLL MANAGER-COMPUTER SCIENCE INTERN Work Phone: [facility] Comment on above: Tinea manus (Primary Dx); Actinic keratosis; Other atopic dermatitis Start: 05-31-2024 End: 05-31-2024 ambulatory SULMA A FELTER Not Available Start: 05-17-2024 End: 05-17-2024 Bamboo flowsheet Sulma A Felter PAYROLL MANAGER-COMPUTER SCIENCE INTERN Work Phone: [facility] Start: 05-17-2024 End: 05-17-2024 Bamboo flowsheet Sulma A Felter PAYROLL MANAGER-COMPUTER SCIENCE INTERN Work Phone: [facility] Start: 05-17-2024 End: 05-17-2024 Office outpatient visit 25 minutes Sulma Ontiveros Felter PAYROLL MANAGER-COMPUTER SCIENCE INTERN Work Phone: [facility] Comment on above: Tinea manus (Primary Dx); Encounter for removal of sutures Start: 05-17-2024 End: 05-17-2024 ambulatory SULMA A FELTER Not Available Start: 05-07-2024 End: 05-07-2024 Bamboo flowsheet Sulma A Felter PAYROLL MANAGER-COMPUTER SCIENCE INTERN Work Phone: [facility] Start: 05-07-2024 End: 05-07-2024 Bamboo flowsheet Sulma A Felter PAYROLL MANAGER-COMPUTER SCIENCE INTERN Work Phone: [facility] Start: 05-07-2024 End: 05-07-2024 Patient encounter procedure Sulma A Felter PAYROLL MANAGER-COMPUTER SCIENCE INTERN Work Phone: [facility] Comment on above: Rash and other nonsp ecific skin eruption Start: 05-07-2024 End: 05-07-2024 ambulatory SULMA A FELTER Not Available Start: 2024 Patient encounter status [facility] Start: 11-28-2023 End: 11-28-2023 ambulatory Axel Jovana Briggs Facility:[facility] Start: 11-28-2023 Non-patient / Non-visit DO Pedrito Quick Work Phone: [facility] Work Phone: Start: 11-28-2023 End: 11-28-2023 Admission to same day surgery center DO Mark Quick Work Phone: [facility] Work Phone: Start: 11-28-2023 End: 11-28-2023 ambulatory DO Mark Quick Work Phone: [facility] Work Phone: Start: 08-29-2023 End: 08-29-2023 ambulatory Mark Quick Other [facility] Other Start: 08-29-2023 Office outpatient vi sit 15 minutes Mark Abdelrahman [facility] Start: 08-25-2023 End: 08-25-2023 ambulatory Mark Quick Other [facility] Start: 08-25-2023 Office outpatient vi sit 15 minutes Mark Quick [facility] Start: 05-16-2023 End: 05-16-2023 ambulatory Mulugeta Bella Other [facility] Other Start: 05-16-2023 Office outpatient vi sit 25 minutes Mulugeta Bella [facility] Start: 05-13-2023 End: 05-13-2023 ambulatory Mark Quick Other [facility] Other Start: 05-13-2023 Office outpatient vi sit 25 minutes Mark Quick [facility] Start: 05-02-2023 End: 05-02-2023 ambulatory Mulugeta Bella Other [facility] Other Start: 05-02-2023 Telephone encounter Mulugeta Jena [facility] Start: 04-28-2023 End: 04-28-2023 ambulatory Mark Quick Other [facility] Other Start: 04-28-2023 Telephone encounter Mark Quick [facility] Start: 04-20-2023 End: 04-20-2023 ambulatory Mark Quick Other [facility] Other Start: 04-20-2023 Telephone encounter Mark Quick [facility] Start: 03-31-2023 End: 03-31-2023 ambulatory Mark Quick Other [facility] Other Start: 03-31-2023 Telephone encounter Mark Abdelrahman [facility] Start: 01-26-2023 End: 01-26-2023 ambulatory Mark Quick Other [facility] Other Start: 01-26-2023 Encounter for genera l adult medical examination without abnormal findings Mark Quick [facility] Start: 01-26-2023 Telephone encounter Mark Abdelrahman [facility] Start: 11-29-2022 End: 11-29-2022 ambulatory Mark Quick Other [facility] Other Start: 11-29-2022 Office outpatient vi sit 15 minutes Mark Ball [facility] Start: 10-01-2022 End: 10-01-2022 ambulatory Mark Abdelrahman Other [facility] Other Start: 10-01-2022 Office outpatient vi sit 15 minutes Mark Ball [facility] Start: 09-27-2022 Telephone encounter Mark Quick [facility] Start: 09-27-2022 End: 09-28-[address] MARK QUICK Facility: Start: 09-24-2022 End: 09-24-2022 ambulatory Mark Quick Other [facility] Other Start: 09-24-2022 Office outpatient vi sit 15 minutes Mark Quick [facility] Start: 09-06-2022 End: 09-06-2022 ambulatory Mark Quick Other [facility] Other Start: 09-06-2022 Office outpatient vi sit 15 minutes Mark Quick [facility] Start: 06-02-2022 End: 06-02-2022 ambulatory Axel Briggs Other [facility] Start: 06-02-2022 Telephone encounter Axel [facility] Start: 05-28-2022 End: 05-29-[address] DOCTOR AGUILERA Facility: Start: 05-27-2022 End: 05-27-2022 ambulatory Axel Briggs Other [facility] Start: 05-27-2022 Telephone encounter Axel [facility] Start: 05-24-2022 End: 05-24-2022 ambulatory Axel Briggs Other [facility] Start: 05-24-2022 Telephone encounter Axel [facility] Start: 05-10-2022 End: 05-10-2022 ambulatory Axel Briggs Other [facility] Start: 05-10-2022 Telephone encounter Axel [facility] Start: 04-26-2022 End: 04-26-2022 ambulatory Axel Briggs Other [facility] Start: 04-26-2022 Telephone encounter Axel [facility] Start: 04-20-2022 End: 04-20-2022 ambulatory Axel Briggs Other [facility] Start: 04-20-2022 Patient encounter procedure Axel Briggs [facility] Start: 03-18-2022 End: 03-18-2022 ambulatory Axel Briggs Other [facility] Start: 03-18-2022 Telephone encounter Axel Briggs [facility] Start: 03-01-2022 End: 03-01-2022 ambulatory Terra Connor Other [facility] Start: 03-01-2022 Telephone encounter Terra Miguel Angeljustin [facility] Start: 02-22-2022 End: 02-22-2022 ambulatory Terra Nikolas Other [facility] Start: 02-22-2022 Telephone encounter Terra Miguel Angeljustin [facility] Start: 02-10-2022 End: 02-10-2022 ambulatory Terra Connor Other [facility] Other Start: 02-10-2022 Office outpatient vi sit 25 minutes Terra Michellejustin [facility] Start: 12-03-2021 Encounter for other preprocedural examination DR STERLING CARDONA [facility] Start: 12-01-2021 End: 12-02-[address] MARK QUICK Facility:[facility] Start: 12-01-2021 End: 12-02-2021 Encounter for other preprocedural examination DR MARK QUICK Facility:[facility] Start: 09-25-2021 Adult health examination Mark Quick Other [facility] Other Procedures Date Procedure Procedure Detail Performing Clinician Start: 12-25-2024 CRYOTHERAPY SKIN LESION Chelsy Padilla MD Work Phone: Start: 12-25-2024 SKIN / NAIL BIOPSY Mikael Padilla MD Work Phone: Start: 05-31-2024 CRYOTHERAPY SKIN LESION Sulma Rama Shawn PAYROLL MANAGER-COMPUTER SCIENCE INTERN Work Phone: Start: 05-07-2024 End: 05-07-2024 SKIN / NAIL BIOPSY Sulma Escobar PAYROLL MANAGER-COMPUTER SCIENCE INTERN Work Phone: Start: 11-28-2023 Colonoscopy DO Janet Quick Work Phone: Start: 03-06-2018 General examination of patient Mark Quick Other Start: 09-22-2015 Diabetes mellitus screening Mark Quick Other Start: 09-22-2015 Hyperlipidemia screening Mark Quick Other Start: 09-22-2015 Screening for malign ant neoplasm of colon Mark Quick Other Start: 09-22-2015 Screening for malign ant neoplasm of prostate Mark Quick Other Depression screening Janet Quick Other Screening for malign ant neoplasm of prostate Mark Quick Other Plan of Treatment Date Care Activity Detail Author Start: 11-27-2033 Screening for malignant neoplasm of colon [facility] Start: 08-15-2025 End: 08-15-2025 Patient encounter procedure 08/15/2025 8:35 AM EST Office Visit [facility] [address] [place] [id number] Sulma Escobar PAYROLL MANAGER-COMPUTER SCIENCE INTERN [address] [place] [address] [facility] Start: 03-25-2025 Influenza vaccination Influenza Vaccine (Season Ended) [facility] Start: 02-11-2025 End: 02-11-2025 Patient encounter procedure 02/11/2025 9:15 AM EDT Office Visit [facility] [place] [address] [place] [phone] Sterling Cardona DO [address] [place] [address] [facility] [place] Start: 01-16-2025 End: 01-16-2025 Patient encounter procedure 01/16/2025 9:00 AM EDT Consult [facility] [address] [place] [address] Jen Reagan, DO [address] [place] [address] [facility] Start: 11-09-2024 Patient referral [facility] Work Phone: Start: 11-02-2024 End: 11-02-2025 Pulmonary function report Pulmonary Function Test Imaging Routine Chronic rhinitis Chronic cough Expected: 11/02/2024 (Approximate), Expires: 11/02/2025 [facility] Work Phone: Comment on above: Expected: 11/02/2024 (Approximate), Expi res: 11/02/2025 Start: 08-14-2024 End: 08-14-2024 Patient encounter procedure 08/14/2024 10:10 AM EST Office Visit [facility] [address] [place] [address] Sulma Escobar, PAYROLL MANAGER-COMPUTER SCIENCE INTERN [address] [place] [address] Arrived [facility] Comment on above: Arrived Start: 07-11-2024 End: 07-11-2024 Patient encounter procedure 07/11/2024 9:25 AM EST Office Visit [facility] [address] [place] [address] Sulma Escobar, PAYROLL MANAGER-COMPUTER SCIENCE INTERN [address] [place] [address] [facility] Start: 07-05-2024 End: 06-14-2025 Alanine aminotransferase [Enzymatic activity/volume] in Serum or Plasma ALT Lab Routine Tinea manus High risk medication use Expected: 07/05/2024 (Approximate), Expires: 06/14/2025 [facility] Work Phone: Comment on above: Expected: 07/05/2024 (Approximate), Expi res: 06/14/2025 Start: 07-05-2024 End: 06-14-2025 Aspartate aminotransferase [Enzymatic activity/volume] in Serum or Plasma AST Lab Routine Tinea manus High risk medication use Expected: 07/05/2024 (Approximate), Expires: 06/14/2025 [facility] Comment on above: Expected: 07/05/2024 (Approximate), Expi res: 06/14/2025 Start: 06-14-2024 End: 06-14-2024 Patient encounter procedure [facility] Comment on above: Arrived Start: 05-31-2024 End: 05-31-2025 Alanine aminotransferase [Enzymatic activity/volume] in Serum or Plasma ALT Lab Routine Tinea manus Expected: 05/31/2024 (Approximate), Expires: 05/31/2025 [facility] Work Phone: Comment on above: Expected: 05/31/2024 (Approximate), Expi res: 05/31/2025 Start: 05-31-2024 End: 05-31-2025 Aspartate aminotransferase [Enzymatic activity/volume] in Serum or Plasma AST Lab Routine Tinea manus Expected: 05/31/2024 (Approximate), Expires: 05/31/2025 [facility] Comment on above: Expected: 05/31/2024 (Approximate), Expi res: 05/31/2025 Start: 05-31-2024 End: 05-31-2024 Patient encounter procedure [facility] Comment on above: Arrived Start: 05-17-2024 End: 05-17-2024 Patient encounter procedure [facility] Comment on above: Arrived Start: 05-07-2024 End: 05-07-2024 Patient encounter procedure 05/07/2024 10:25 AM EDT Office Visit [facility] [address] [place] [phone] Sulma Escobar APRN-COMPUTER SCIENCE INTERN [address] [place] [address] Arrived [facility] Comment on above: Arrived Start: 03-25-2024 Influenza vaccination Influenza Vaccine (#1) [facility] Start: 11-28-2023 [facility] Start: 1960 Screening for malignant neoplasm of colon [facility] Dermatopathology exam Dermatopat hology exam Pathology and Cytology Timed Rash and other nonspecific skin eruption Release Upon Ordering for 1 Occurrences starting 05/07/2024 [facility] Work Phone: Comment on above: Release Upon Ordering for 1 Occurrences starting 05/07/2024 Dermatopathology exam Dermatopat hology exam Pathology and Cytology Timed Neoplasm of unspecified behavior of bone, soft tissue, and skin Release Upon Ordering for 1 Occurrences starting 12/25/2024 [facility] Work Phone: Comment on above: Release Upon Ordering for 1 Occurrences starting 12/25/2024 Patient referral [facility] Work Phone: Immunizations Immunization Date Immunization Notes Care Provider Fa ham 10-23-2020 COVID-19 Vaccine Pfi zer - Documentation Purposes Only Mark Quick Other [facility] 10-02-2020 COVID-19 Vaccine Pfi zer - Documentation Purposes Only Mark Quick Other [facility] Payers Date Payer Category Payer [facility] er [id number] 1960 Unknown [id number] [id number] 1960 Unknown [id number] [id number]. [id number] 1961 Unknown [id number] [id number]. 2.593 1961 Unknown [id number] [id number]. 2.1259 1961 Unknown [id number] [id number]. 2.1259 1961 Unknown [id number] [id number]. 2.1259 1961 Unknown [id number] [id number]. 2.1259 1961 Unknown [id number] [id number]. 2.1259 1961 Unknown [id number] [id number]. 2.1259 1961 Unknown [id number] [id number]. 2.1259 1958 [facility] [id number] Self-pay Self Pay [id number] Unknown MMO [id number] Social History Date Type Detail Facility Unknown if ever smoked [facility] Start: 05-26-2023 End: 12-25-2024 Sex Assigned At [facility] Start: 11-28-2023 Tobacco smoking status RIIS Smoker (finding) [facility] Start: 1960 Sex Assigned At Male [facility] Start: 12-16-2022 End: 11-02-2024 Tobacco smoking status RIIS Smokes tobacco daily [facility] History of tobacco use Cigarette Smoker [facility] History of tobacco use Cigar Smoker [facility] History of tobacco use Passive smoker [facility] Start: 05-26-2023 End: 12-25-2024 Alcoholic beverage intake Current drinker of alcohol (finding) [facility] Start: 05-26-2023 End: 12-25-2024 Alcoholic beverage intake [facility] Start: 12-16-2022 Alcohol Comment daily [facility] Start: 04-06-2024 Gender identity Identifies as male gender (finding) [facility] Start: 04-06-2024 Sexual orientation Heterosexual (finding) [facility] Start: 10-18-2024 End: 11-09-2024 Sex Male (finding) [facility] Goals Date Patient Goal Desired Activity /State Clinical Notes 12-08-2021 to 12-25-2024 Chelsy Padilla MD - 12/25/2024 11:00 AM EDTTelephone Encounter - [facility] - 12/18/2024 11:55 AM EDTTelephone Encounter - [facility] - 12/18/2024 11:55 AM EDT Note Date & Type Note Facility 12-25-2024 History of Presen t illness Narrative Images from the original note were not [...] was nondiagnostic, favored eczematous process, PAS was negative but patient had been treated with topical antifungal prior and Vikor culture done on 05/07/24 - showed mixed culture including trichophyton and pseudomonas Treatments tried and failed: TAC 0.1 %, Clobetasol 0.05% cream, Oxiconazole Nitrate Cream, Xolegel, Econazole Nitrate, Ceramax, Ketconazole cream, Tazarortene cream, Prednisone [...] or liquid nitrogen. Patient informed that this is not covered by insurance and was quoted $20.00 [...] lesions that fail to resolve should be re-evaluated. Cryotherapy performed today; see procedure note Diagnosis: Actinic keratosis Indication: Precancerous Location: see skin exam Consent: Verbal consent was obtained and risks were discussed, including, but not limited to risks of scarring, darker or welder 2nd shift pigmentary changes, recurrence, incomplete removal and infection. [...] Next Visit: prn documented in this encounter [facility] 12-18-2024 Telephone encount er Note Hi, this is Dub Sun Stack, I am calling for my Matteo Brewer. date is 1959. He has an appointment at the [place] [facility] on january 16. To see Dr ray was supposed to have got a PFT in [place]. But apparently the machine's been broken. So they were to have transferred everything over to [facility] so he could have it done and I just talked to [place], they have not received any of that. So I do not know if your office needs to do it or I need to call back to the clinic that does the pulmonary function testing and [place] and have them Redo it, but like to see if we can get him set up in [facility] to have a pulmonary function test before he sees Dr. Ray appreciate if you could call me back at [phone], thank you. [facility] 12-18-2024 Miscellaneous Notes Formattin g of this note might be different from the original. Hi, this is Chun Brewer, I am calling for my Matteo Brewer. date is 1959. He has an appointment at the [facility] on january 16. To see Dr ray was supposed to have got a PFT in [place]. But apparently the machine's been broken. So they were to have transferred everything over to [facility] so he could have it done and I just talked to [place], they have not received any of that. So I do not know if your office needs to do it or I need to call back to the clinic that does the pulmonary function testing and [place] and have them Redo it, but like to see if we can get him set up in [facility] to have a pulmonary function test before he sees Dr. Ray appreciate if you could call me back at [phone], thank you. documented in this encounter [facility] 11-02-2024 History of Presen t illness Narrative Subjective Patient ID: Emanuel Hardy is a 64 y.o. male who presents for Cough (Cough / sore throat) HPI This patient presents for evaluation of chronic cough and sore throat. Symptoms are unrelenting despite medical therapy. Continues to smoke cigarettes. Describes lump sensation in his throat at times. Also describes shortness of breath when going up a set of stairs. Presents today for further evaluation and treatment. Review of Systems Patient denies any fever. Does describe some congestion of the nose. Frequent coughing and clearing of his throat. Continues to smoke cigarettes. Denies any wheezing. The rest of his review of systems is negative Allergies as of 11/02/2024 - Reviewed 11/02/2024 Allergen Reaction Noted Penicillins Rash 05/26/2023 Ciprofloxacin Other 06/14/2024 Levofloxacin Itching 06/15/2024 Moxifloxacin Itching 04/24/2024 Cephalexin Rash 04/24/2024 Past Medical History: Diagnosis Date Chronic rhinitis Cough Gastroesophageal reflux disease Vocal cord anomaly Current Outpatient Medications: Advair Diskus 250-50 MCG/ACT aerosol powder , INHALE 1 PUFF INTO THE LUNGS TWICE A DAY FOR 30 DAYS, Disp: , Rfl: albuterol HFA 90 mcg/act inhaler, Inhale 1 puff every 4 (four) hours if needed., Disp: , Rfl: Ascorbic Acid (Vitamin C) 500 MG capsule, Take 1 tablet by mouth 1 (one) time each day., Disp: , Rfl: aspirin 81 MG EC tablet, Take 1 tablet by mouth in the morning., Disp: , Rfl: baclofen (Lioresal) 20 MG tablet, TAKE 1 TABLET BY MOUTH TWICE A DAY NEEDED FOR 30 DAYS, Disp: , Rfl: esomeprazole (NexIUM) [address] capsule, Take 1 capsule by mouth in the morning. Take before meals., Disp: , Rfl: fluticasone (Flonase) 50 MCG/ACT nasal spray, Administer 1 spray into each nostril in the morning., Disp: , Rfl: gentamicin (Garamycin) 0.1 % ointment, Apply to hands BID prn, Disp: 15 g, Rfl: 11 lisinopril-hydroCHLOROthiazide 10-12.5 MG tablet, Take 1 tablet by mouth Daily, Disp: , Rfl: tacrolimus (Protopic) 0.1 % ointment, Apply topically 2 (two) times a day, Disp: 60 g, Rfl: 3 tamsulosin (Flomax) 0.4 MG 24 hr capsule, TAKE 1 CAPSULE BY MOUTH 30 MINUTES AFTER EVENING MEAL EVERY NIGHT, Disp: , Rfl: telmisartan-hydroCHLOROthiazide (MIcarDIS HCT) 40-12.5 MG tablet, Take 1 tablet by mouth Daily, Disp: , Rfl: doxycycline (Monodox) 100 MG capsule, Take 1 capsule, by mouth bid, x 10 days (Patient not taking: Reported on 11/02/2024), Disp: 20 capsule, Rfl: 0 Past Surgical History: Procedure Laterality Date APPENDECTOMY 1998 TONSILLECTOMY 12/08/2021 - DML w/ biopsy / excision cyst of vallecula Social History Socioeconomic History Marital status: Spouse name: Not on file Number of children: Not on file Years of education: Not on file Highest education level: Not on file Occupational History Not on file Tobacco Use Smoking status: Every Day Current packs/day: 0.50 Types: Cigarettes, Cigars Passive exposure: Current Smokeless tobacco: Not on file Vaping Use Vaping status: Unknown Substance and Sexual Activity Alcohol use: Yes Alcohol/week: 3.0 standard drinks of alcohol Types: 3 Standard drinks or equivalent per week Comment: daily Drug use: Defer Sexual activity: Defer Other Topics Concern Not on file Social History Narrative Not on file Social Drivers of Health Financial Resource Strain: Not on file Food Insecurity: Not on file Transportation Needs: Not on file Physical Activity: Not on file Stress: Not on file Social Connections: Not on file Intimate Partner Violence: Not on file Housing Stability: Not on file Objective ENT Physical Exam General Examination: General overview: Normal, age-appropriate, no evidence of distress, frequent coughing Head: Normocephalic, atraumatic Eyes: Pupils are equally round and reactive to light and accommodation, extraocular muscles are intact Ears: External ear architecture within normal limits, ear canals are patent, tympanic membranes are intact. Nose: External nose unremarkable, nares patent, septum intact, deviation of the nasal septum with moderate congestion. Oral cavity: Mucosa moist, no evidence of ulcer, mass, or lesion Throat: Clear , indirect examination of the larynx is incomplete Fiberoptic laryngoscopy Consent was obtained Anesthesia: Topical xylocaine with Afrin mixture sprayed into the nasal airways bilaterally. Procedure: A diagnostic flexible fiberoptic laryngoscopy was performed. The flexible fiberoptic laryngoscope was placed into the nasal airway and advanced to the nasopharynx. Further advancement is completed down to the level of the epiglottis. Examination of the larynx including both surfaces of the epiglottis, false vocal and true vocal cords, arytenoids, and surrounding mucosal surfaces show no evidence of lesion, ulceration, or mass. Generalized erythema is noted without ulceration. This is very limited Bilateral vocal cords have good motion. Bilateral piriform sinuses and base of tongue appear without lesion. Neck/thyroid: Neck supple, full range of motion, no cervical lymphadenopathy, no evidence of thyromegaly Lymph nodes: No cervical lymphadenopathy Skin: Warm and dry, no evidence of suspicious lesions, no rash Heart: No jugular venous distention, point of maximal impulse normal Lungs: Decreased movement of air with coarse sounds with breathing. No wheezing. Chest: Normal shape and expansion Abdomen: Normal, soft, nontender, nondistended Musculoskeletal: Cervical spine normal, full range of motion Extremities: No clubbing, cyanosis, or edema Peripheral pulses: 2+ radial, 2+ carotid Neurologic: Alert and oriented, cranial nerves 2-12 are grossly intact Psych: Alert and oriented, normal affect, no evidence of distress Assessment/Plan Diagnoses and all orders for this visit: Chronic cough Comments: Recommend pulmonary function testing at this time Orders: - Pulmonary Function Test; Future Chronic rhinitis Comments: Recommend steroid nasal spray on a daily basis Orders: - Pulmonary Function Test; Future Tobacco abuse Comments: Patient encouraged to continue his efforts to quit smoking Laryngopharyngeal reflux (LPR) Comments: Patient will take his Nexium 1 hour prior to his last meal of the day documented in this encounter [facility] 10-17-2024 Chief complaint+R brando for visit Narrative groin pain October 17, 2024 3:3 8pm Referral Order November 09, 2024 1:1 1pm Reason for Visit Admit Date Acute diverticulitis October 17, 2024 3: 38pm Allergic rhinitis, seasonal October 17, 2024 3:38pm Irritable bowel syndrome with constipati on October 17, 2024 3:38pm [facility] Work Phone: 1(593) 375-209303-26-2025 Evaluation note* Diagnosis Onset Date Resolution Status Admit Date Acute diverticulitis acute Kan h 2024 3:38pm Allergic rhinitis, seasonal acute October 17, 2024 3:38pm Irritable bowel syndrome wit h constipation acute October 17, 2024 3:38pm [facility] Work Phone: 1(499) 703-823701-21-2025 History of Present illness Narrative* CONSTANCE Pedraza - 08/14/2024 10:10 AM EST Images from the original note were not included. Follow up: Diagnosis: Tinea Manus/Atopic dermatitis with secondary bacterial infection Location: left hand Last visit: 06/14/2024 Symptoms: Itchy Status: improved Procedure performed: Punch biopsy and Vikor culture done on 05/07/24 Previous treatments: TAC 0.1 %, Clobetasol 0.05% cream, Oxiconazole Nitrate Cream, Xolegel, Econazole Nitrate, Ceramax, Ketconazole cream, Tazarortene cream, Prednisone was completed in March, flared worse afterwards, was given Cipro 750mg but he has an allergy to this then was given Levofloaxcin and pt had itching with med Doxycycline 100 mg BID x 10 days on 05/09/24 Current treatment: Lamisil 250 mg-stopped to due to being better, held doing labs for now, and continue Protopic 1 % ointment BID, he is still using Gentamicin ointment, he is taking another steroid and antibiotics for another flare of pneumonia All pertinent medical history, medications, and allergies were reviewed. General Exam: alert, oriented to person, place, and time, normal affect, well appearing Accompanied by spouse A focused exam completed based on patient reported problems, see below: 1. Tinea manus (2) Left Hand - Posterior, Right Hand - Posterior Scaly erythematous patches, and vesicles, nail dystrophy present. Improvement since last visit Continue Protopic 0.1% ointment bid, discontinue Gentamicin ointment. Recommended using a daily moisturizer. Notify office if worsening or has flare. Next Visit: 1 year documented in this encounterSaint [facility] [id number] Evaluation note* Diagnosis Onset Date Resolution Status Admit Date Hypertension acute July 10:05am Acute bronchitis due to othe r specified organisms noneactive July 10:05am Acute exacerbation of chroni c obstructive airways disease noneactive Moy verdin 2024 10:05am Acute diverticulitis acute Kan h 2024 3:38pm Allergic rhinitis, seasonal acute October 17, 2024 3:38pm Irritable bowel syndrome wit h constipation acute October 17, 2024 3:38pm [facility] Work Phone: 1([phone]) 249-905511-21-2024 Telephone encounter Note* Telephone Encounter - CONSTANCE Pedraza - 06/14/2024 10:24 AM EST Patient seen today in office. Would like to add Cipro 750mg BID x 10 days since I am questioning ifDoxycycline only cured one of the bacterial growths. Please check interactions [facility] [id number] Miscellaneous Notes* Telephone Encounter - CONSTANCE Pedraza - 06/14/2024 10:24 AM EST Patient seen today in office. Would like to add Cipro 750mg BID x 10 days since I am questioning ifDoxycycline only cured one of the bacterial growths. Please check interactions documented in this encounterSaint John's Health [id number] History of Present illness Narrative* CONSTANCE Pedraza - 06/14/2024 9:20 AM EST Images from the original note were not included. Follow up: Diagnosis: Tinea Manus/Atopic dermatitis Location: left hand Last visit: 05/31/2024 Symptoms: Itchy Status: about the same Procedure performed: Punch biopsy and Vikor culture done on 05/07/24 Previous treatments: TAC 0.1 %, Clobetasol 0.05% cream, Oxiconazole Nitrate Cream, Xolegel, Econazole Nitrate, Ceramax, Ketconazole cream, Tazarortene cream, Prednisone was completed in March, flared worse afterwards Doxycycline 100 mg BID x 10 days on 05/09/24 Current treatment: Lamisil 250 mg daily x 4 weeks, and Protopic 1 % ointment. All pertinent medical history, medications, and allergies were reviewed. General Exam: alert, oriented to person, place, and time, normal affect, well appearing Accompanied by spouse A focused exam completed based on patient reported problems, see below: 1. Tinea manus (2) Left Hand - Posterior, Right Hand - Posterior Scaly erythematous patches, and vesicles, nail dystrophy present. Some improvement but not at current treatment goal. Continue Protopic 0.1% ointment bid and Lamisil 250 mg daily for another month due to nail involvement. Patient instructed to have ALT/AST labs drawn in 3 weeks Lab req given. Previous ALT and AST stable. Consider Dupixent in the future Related Procedures ALT AST Related Medications terbinafine (LamISIL) 250 MG tablet Take 1 tablet, by mouth, once daily x 14 days terbinafine (LamISIL) 250 MG tablet Take 1 tablet, by mouth, once daily x 30 days 2. High risk medication use Related Procedures ALT AST 3. Other atopic dermatitis Left Hand - Posterior Scaly erythematous patches and xerosis Continue Protopic as prescribed, consider Dupixent in the future. Encouraged gentle cleansers and moisturize frequently, samples provided. Next Visit: 1 month documented in this encounterSaint John's Health [id number] History of Present illness Narrative* CONSTANCE Pedraza - 05/31/2024 8:50 AM EST Images from the original note were not included. Follow up: Diagnosis: Tinea Manus Location: left hand Last visit: 2 weeks ago Status: little improvement, still spreading . Less itchy, less swelling Procedure performed: Punch biopsy Date of procedure: 05/07/2024 Current treatment: Lamisil 250 mg daily x 2 weeks, and Protopic 1 % ointment. Lesions: Location: lips, ears Duration: months Associated symptoms: scaly, rough Treatments: none All pertinent medical history, medications, and allergies were reviewed. General Exam: alert, oriented to person, place, and time, normal affect, well appearing Accompanied by spouse A focused exam completed based on patient reported problems, see below: 1. Tinea manus (2) Left Hand - Posterior, Right Hand - Posterior Scaly erythematous patches, vesicles. Less swelling noted today. Patient reports less pruritus. Notat current treatment goal. Extend Lamisil 250 mg every day for 2 more weeks. Consider Lamisil daily for 45 days if ALT and ASTremain normal. ALT and AST baseline reviewed and within normal limits. Continue Protopic 0.1% ointment bid. Patient instructed to have ALT/AST labs drawn at his earliest convenience. Lab req given. Related Procedures ALT AST Related Medications terbinafine (LamISIL) 250 MG tablet Take 1 tablet, by mouth, once daily x 14 days 2. Actinic keratosis (4) Left [place], Mid Lower Vermilion Lip (2), Right [place] Erythematous scaly papules. Patient was counseled regarding these sun-induced growths [...] limited to risks of scarring, darker or welder 2nd shift pigmentary changes, recurrence, incomplete removal and infection. Method: Liquid nitrogen was used to treat the lesion(s) with two 5-10 second freeze-thaw cycles. Number of lesions treated: 4 Post-procedure instructions: Instructions were given orally and in writing. The office will be contacted if the lesion fails to resolve despite treatment, or if a side effect develops such as abnormal crusting, scabbing, redness or tenderness Cryotherapy, skin lesion - Left Superior [place], Mid Lower Verm[place] Lip (2), Right [place] 3. Other atopic dermatitis Left Hand - Posterior Scaly erythematous plaques +/- dyspigmentation, lichenification, excoriations. Improved since last visit Continue Protopic as prescribed Next Visit: 2 weeks documented in this encounterSaint John's Health [id number] History of Present illness Narrative* CONSTANCE Pedraza - 05/17/2024 8:55 AM EDT Images from the original note were not included. Suture Removal Patient here for suture removal: No complaints of redness, drainage or swelling at site, compliant with wound care. Location: left dorsal hand Procedure Performed: Punch biopsy Date of Procedure: 05/07/2024 Current Medications: doxycycline 100 mg All pertinent medical history, medications, and allergies were reviewed. General Exam: alert, oriented to person, place, and time, normal affect, well appearing Unaccompanied A focused exam completed based on patient reported problems, see below: 1. Tinea manus (2) Left Hand - Posterior, Right Hand - Posterior Scaly annular plaques with swelling Patient denies liver problems. States recent liver enzymes WNL. to fax results. Instructed to avoid alcohol and Tylenol when taking medication. Discussed potential side effects. Stop taking medication and call office if side effects occur. Patient verbalizes understanding Start Lamisil 250 mg daily x 2 weeks, and Protopic 1 % ointment. Follow up in 2 weeks 2. Encounter for removal of sutures Left Dorsal Hand Sutures are intact, Skin edges are well-approximated, Mild erythema along incision line, No drainage or edema noted. Discussed pathology results with and patient Suture removal today, see procedure note: Suture Removal Procedure: Sutures removed without difficulty. Post-Procedure instructions: Instructed to discontinue wound care., Pathology results discussed. tacrolimus (Protopic) 0.1 % ointment - Left Dorsal Hand Apply topically 2 (two) times a day terbinafine (LamISIL) 250 MG tablet - Left Dorsal Hand Take 1 tablet, by mouth, once daily x 14 days Next Visit: 2 weeks documented in this encounterSaint John's Health [id number] History of Present illness Narrative* CONSTANCE Pedraza - 05/07/2024 10:25 AM EDT Images from the original note were not included. Rash Location: hands Duration: years Quality: itchy Modifying Factors: worse with sun exposure Associated symptoms: red, scaly Trialed Medications and failed: TAC 0.1 %, Clobetasol 0.05% cream, Oxiconazole Nitrate Cream, Xolegel, Econazole Nitrate, Ceramax, Ketconazole cream, Tazarortene cream, Prednisone was completed in March, flared worse afterwards Current treatments: none Patient mentions he loses his finger nails on that hand in the winter months. New patient All pertinent medical history, medications, and allergies were reviewed. General Exam: alert, oriented to person, place, and time, normal affect, well appearing Accompanied by spouse A focused exam completed based on patient reported problems, see below: 1. Rash and other nonspecific skin eruption Left Dorsal Hand [place] patches and plaques Vikor tissue culture taken today-Left dorsal hand. Lesion biopsy - Left Dorsal Hand Type of biopsy: punch Informed consent: discussed and consent obtained Informed consent comment: The risks and benefits were discussed. Risks include, but are not limitedto, bleeding, infection, scarring, pain, & nerve damage. An opportunity to ask questions prior to the procedure was permitted and questions were answered. Patient was prepped and draped in usual sterile fashion: Area cleansed with alcohol. Anesthesia: the lesion was anesthetized in a standard fashion Anesthetic: 1% lidocaine w/ epinephrine 1-100,000 buffered w/ 8.4% NaHCO3 Punch size: 4 mm (A biopsy by punch method was performed using a dermal punch) Suture size: 4-0 Suture type: nylon Suture type comment: Hemostasis was achieved with suture. Suture removal (days): 10 Hemostasis achieved with: suture Outcome: patient tolerated procedure well Post-procedure details: sterile dressing applied and wound care instructions given Post-procedure details comment: Emphasized the need to contact clinic for any signs of infection, uncontrollable bleeding, or complications. Dressing type: bandage Additional details: Amount of lidocaine used: 1.0 cc Number of sutures used: 2 Photo taken yes Specimen B - Dermatopathology exam Differential Diagnosis: tinea manuum vs other Check Margins: No Related Procedures Lesion biopsy Next Visit: 10 days S/R documented in this encounterSaint John's Health [id number] History and physical note Author Axel Briggs [facility] November 28, 2023 10:09am Note Date/Time November 28, 2023 10:10a m [facility] [address] [place] [address] Gastroenterology H&P Signed Patient: Matteo Hardy MR#: [id number] : 1960 Acct:[id number] Age/Sex: 63 / M Adm Date: 4 Loc: Room: Type: [facility] Attending Dr: Axel Briggs MD Copies to: DO Axel Denis MD~ Date of Service: 11/28/2023 HISTORY & PHYSICAL: Patient's history with special attention to the cardiovascular, pulmonary systems and the current problem was reviewed with the patient immediately prior to the procedure. Present medications and doses reviewed in the EMR. Allergies and pertinent laboratory tests were also reviewedat this time in the EMR. The physical examination, as below, was then performed. Indication, assessment and HPI: 63-year-old male presents for colonoscopy to evaluate change in bowel habits, constipation and malodorous stool. Family history of GI malignancy? No PHYSICAL EXAMINATION Mouth and Pharynx : Moist mucus membranes, normal dentition Cardiac: Regular rate, regular rhythm Pulmonary: Clear to auscultation bilaterally, no wheezing Neurological: Alert and oriented x3, no focal deficits noted Abdomen: Abdomen soft, non-tender REVIEW OF SYSTEMS Constitutional: Denies malaise, fevers Cardiovascular: Denies chest pain, palpitations Respiratory: Denies shortness of breath, wheezing Gastrointestinal: Per HPI Genitourinary: Denies dysuria, polyuria Musculoskeletal: Denies joint swelling, joint stiffness Neurological: Denies numbness, tingling Integumentary: Denies rashes, skin lesions Endocrine: Denies fatigue, weight loss Written informed consent obtained from the patient. Risks (including but not limited to perforation, infection, bloating, bleeding, need for emergent surgeryand loss of life), benefits and alternatives explained and questions answered. The patient verbalized understanding. Based on history patient is an appropriate candidate for the procedure. Axel Briggs MD Documented By: Axel Briggs MD 11/28/23 100 Signed By: <Electronically signed by Axel Briggs MD> 11/28/231008 [facility] Work Phone: 1(653) 607-128605-06-2024 [facility]Tr[facility] Evaluation note* Encounter Date Diagnosis Assessment Notes Treatment Notes Treatment Clinical Notes Aug, COVID-19 (ICD-10 - U07.1) Aware of quarantine guidelines. Recommend Paxlovid. Hold Rosuvastatin and Tamsulosin Instructed to use Robitussin or Mucinex for cough, saline or Flonase NS for congestion, Tylenol for pain and fever. Self isolate at home. - Cannot work - avoid contact with others - avoid pets - wipe counters, door knobs if touched - if can't avoid leaving home, must wear mask to protect others - need to stay isolated for 10 days from onset of symptoms - to discontinue isolation must be 5 days AND must be without fever for 24 hours AND symptoms must be improving. Always wear a mask in public places for complete 10 days Aug, Chronic obstructive pulmonary disease with (acute) lower respiratory infection (ICD-10 - J44.0) Instructed to use Robitussin or Mucinex for cough, saline or Flonase NS for congestion, Tylenol for pain and fever. [facility] Other 02-01-2024 Evaluation note* Encounter Date Diagnosis Assessment Notes Treatment Notes Treatment Clinical Notes Aug, Acute non-recurrent maxillary sinusitis (ICD-10 - J01.00) Instructed to use Robitussin or Mucinex for cough, saline or Flonase NS for congestion, Tylenol for pain and fever. 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 If Skyrizi is going to be taken then treatment for LTBI suggested. Given ETOH intake caution sugesteded. Cutting back on amount of ETOH may be necessary. more concerned about other infections given patient's COPD even aside from TB. She has great concerns that the immunosyuppresion assoced with Skyrizi may cause. I left it with the patient and his that they are to call me in the event that if they were to begin Skyrizi then I would happily prescribe the rifampin with the caveat that liver function tests are done 2 to 3 weeks after beginning it. [facility] Other 10-20-2023 Evaluation note* Encounter Date Diagnosis Assessment Notes Treatment Notes Treatment Clinical Notes Apr, Mucopurulent chronic bronchitis (ICD-10 - J41.1) Continue trial of Advair Instructed to use KATHRYN as needed Not sure any better w/o Advair, may trial Anoro Avoid smoke, dust and allergens Apr, Elevated cholesterol (ICD-10 - E78.00) Instructed on diet and exercise with continued statin therapy.Discussed the beneficial effects of lowering cholesterol in reducing the risk for cerebrovascular and cardiovascular disease. Apr, Gastroesophageal reflux disease with esophagitis without hemorrhage (ICD-10 - K21.00) Diet instructions: Smaller portions, avoid eating and laying flat, avoid eating or drinking prior to bedtime. Weight loss. 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 They are instructed to reduce calories, portion sizes and snacks. It is recommended that they exercise for 30 minutes, 3-5 times weekly. 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 Weight loss. 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 Weight loss. 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 Treatment would be diet, hydration and azithromycin Sep, ZULEYKA (acute kidney injury) (ICD-10 - N17.9) Hydrate, avoid NSAIDs Sep, Dehydration (ICD-10 - E86.0) Hydrate [facility] Other 03-06-2023 Evaluation note* Encounter Date Diagnosis Assessment Notes Treatment Notes Treatment Clinical Notes Sep, Diarrhea, unspecified type (ICD-10 - R19.7) [facility] Other 03-03-2023 Evaluation note* Encounter Date Diagnosis Assessment Notes Treatment Notes Treatment Clinical Notes Sep, Diarrhea of presumed infectious origin (ICD-10 - R19.7) Diet instructions reviewed. _update on Sep, Abdominal cramping (ICD-10 - R10.9) Continue Dicyclomine. ER for increased pain, N/V/D [facility] Other 02-13-2023 Evaluation note* Encounter Date Diagnosis Assessment Notes Treatment Notes Treatment Clinical Notes Aug, Acute bronchitis due to other specified organisms (ICD-10 - J20.8) Instructed to use Robitussin or Mucinex for cough, saline or Flonase NS for congestion, Tylenol for pain and fever. Aug, Cigarette nicotine dependence without complication (ICD-10 - F17.210) This patient has been encouraged to quit tobacco use immediately. They are aware of the hazards associated with tobacco use, including but not limited to respiratory infections, vascular disease and cancers. [facility] Other 11-03-2022 Evaluation note* Encounter Date Diagnosis Assessment Notes Treatment Notes Treatment Clinical Notes May, Bloating (ICD-10 - R14.0) [facility] Other 10-31-2022 Evaluation note* Encounter Date Diagnosis Assessment Notes Treatment Notes Treatment Clinical Notes Apr, Enteritis (ICD-10 - K52.9) Apr, Abdominal pain (ICD-10 - R10.9) [facility] Other 09-27-2022 Evaluation note* Encounter Date Diagnosis Assessment Notes Treatment Notes Treatment Clinical Notes Mar, Bloating (ICD-10 - R14.0) Mar, GERD (gastroesophageal reflux disease) (ICD-10 - K21.9) Increase Nexium to 40mg twice daily Mar, Dyspepsia (ICD-10 - K30) Mar, Constipation (ICD-10 - K59.00) Start Miralax powder daily. Titration dosing discussed with patient. Mar, Change in stool caliber (ICD-10 - R19.4) Mar, Left sided abdominal pain (ICD-10 - R10.9) Continue Dicyclomine prn [facility] Other 07-20-2022 Evaluation note* Encounter Date Diagnosis Assessment Notes Treatment Notes Treatment Clinical Notes Jan, Left sided abdominal pain (ICD-10 - R10.9) Jan, Alternating constipation and diarrhea (ICD-10 - R19.8) [facility] Other 05-17-2022 History general Narrative - Reported* Type Description Date Medical History HYPERLIPIDEMIA Medical History STOMACH PROBLEMS SINCE APPENDIX BURST Surgical History appendectomy 1998 Surgical History benign polpy removed from tongu e and vocal cords 12/08/2021 [facility] Other 05-17-2022 History general Narrative - Reported* Type Description Date Medical History HYPERLIPIDEMIA Medical History STOMACH PROBLEMS SINCE APPENDIX BURST Surgical History appendectomy 1998 Surgical History benign polpy removed from tongu e and vocal cords 12/08/2021 Hospitalization History SEE SURGICAL HX [facility] Other 05-17-2022 History general Narrative - Reported* Type Description Date Medical History HYPERLIPIDEMIA Medical History STOMACH PROBLEMS SINCE APPENDIX BURST Medical History diverticulitis Surgical History [facility] 1998 [facility]2021 Hospitalization History SEE SURGICAL HX [facility] Other 05-17-2022 History general Narrative - Reported* Type Description Date Medical History HYPERLIPIDEMIA Medical History STOMACH PROBLEMS SINCE APPENDIX BURST Medical History diverticulitis Surgical History appendectomy 1998 Surgical History benign polpy removed from tongu e and vocal cords 12/08/2021 Surgical History cyst removed from back of [facility] Hospitalization History SEE SURGICAL HX [facility] Other Evaluation noteNo InformationNort [employer] Other Evaluation noteNo assessment information available [facility] Work Phone: Evaluation note* Diagnosis Rash and other nonspecific skin eruption [facility] Diagnosis Tinea manus- Primary Dermatophytosis of hand Encounter for removal of sutures [facility] Diagnosis Tinea manus- Primary Dermatophytosis of hand Actinic keratosis Other atopic dermatitis [facility] Diagnosis Tinea manus Dermatophytosis of hand High risk medication use Other atopic dermatitis documented [facility]* Diagnosis Tinea manus Dermatophytosis of hand documented in this encounter [facility] HealthcareEvaluation note* Diagnosis Chronic cough- Primary Cough Chronic rhinitis Tobacco abuse Tobacco use disorder Laryngopharyngeal reflux (LPR) documented in this encounter [facility] HealthcareEvaluation note* Diagnosis Tinea manuum- Primary Dermatophytosis of hand Skin tag Unspecified hypertrophic and atrophic condition of skin Neoplasm of unspecified behavior of bone, soft tissue, and skin Actinic keratosis documented in this encounter [facility] HealthcareHospital Discharge instructions Additional Instructions DISCHARGE INSTRUCTIONS FOR COLONOSCOPY WHAT TO EXPECT: - You may feel full, gassy or cramping after your procedure. In some cases, this may be from a few hours to a day. Walking may help relieve the discomfort. - If you have polyp(s) removed you may note some minor bloody discharge after your first bowel movements. - You should begin to recover from anesthesia within 1 hour of the procedure, however may feel groggy for the next 24 hours. DO's AND DON'Ts: - Call your doctor right away if you have a hard abdomen, severe pain, are passing lots of bright red blood or clots. - Call your doctor if you develop any rashes, hives or difficulty breathing. - Let your doctor know if you have not had a bowel movement by 3 days after your procedure. - If you take 81 mg aspirin for your heart it is safe to resume this medication. - If you take other blood thinner medications your doctor will instruct you when these can safely be resumed. - Do NOT drive for 24 hours. - Do NOT operate machinery such as power tools, [employer] mowers, snow blowers, sewing machines, etc. for 24 hours. - Avoid alcoholic beverages and drugs for allergies, nerves, or sleep. - Do NOT stay alone. Do NOT leave your child unattended. - Do NOT make important personal or business decisions or sign any legal documents. - Eat solid foods and drink liquids in smaller amounts than usual until normal appetite returns. If you should experience an upset stomach, liquids high in sugar content (soda, Louie-Aid, non-acid juices) are recommended. - You can resume normal activities tomorrow. FOLLOW UP & RECOMMENDATIONS: -The GI office will make you a follow-up appointment. -Notify the doctor if you have any problems. -Repeat colonoscopy in 5 years. -Follow up with PCP. -Office number [phone].[facility] Work Phone: Hospital Discharge instructionsAmbulatory Orders* Referral to Pulmonology Location: None Selected [facility] Work Phone: Summary Purpose Family History Relationship Condition Age at Onset Recorded Date/T nash Not Specified Colorectal cancer Unknown father Leukemia Unknown Relationship Condition Age at Onset Recorded Date/T nash mother Colorectal cancer Unknown father Leukemia Unknown Advance Directives Advance Directive Response Recorded Date/ Time Advance Directives No May 29, 2021 11:21am Chief Complaint and Reason for Visit Chief Complaint change bowel habits change bowel habits Chief Complaint Admit Date Cough August 09, 2024 1 0:05am groin pain October 17, 2024 3:3 8pm Reason for Visit Admit Date Hypertension August 09, 2024 1 0:05am Acute bronchitis due to other specified organisms August 09, 2024 10:05am Acute exacerbation of chronic obstructiv e airways disease August 09, 2024 10:05am Acute diverticulitis October 17, 2024 3: 38pm Allergic rhinitis, seasonal October 17, 2024 3:38pm Irritable bowel syndrome with constipati on October 17, 2024 3:38pm Additional Source Comments (unrecognized sect ion and content) No Status Records FoundNo Status Records FoundNo Status Records FoundNo Status Records Found INFORMATION SOURCE (unrecogn ized section and content) DATE CREATED AUTHOR 02/12/2022 [facility] dical Specialist DATE CREATED AUTHOR AUTHOR'S ORGANIZ ATION 10/01/2022 [facility] DATE CREATED AUTHOR AUTHOR'S ORGANIZ ATION 12/04/2023 [facility] DATE CREATED AUTHOR AUTHOR'S ORGANIZ ATION 12/26/2024 [facility] d[facility] Specialists EPIC REASON FOR VISIT (unrecogniz ed section and content) Reason Comments Rash Reason Comments Suture / Staple Removal Follow-up Reason Comments Follow-up Skin Check Reason Comments Follow-up Reason Comments Cough Cough / sore throat Reason Comments Suspicious Skin Lesion Care Teams (unrecognized sec tion and content) Team Status: Active Member Role Status Dates Mark Quick DO Primary Care Provider Active Team Status: Inactive Member Role Status Dates Mark Quick DO Primary Care Provider Active Start: November 28, 2023 End: November 28, 2023 Axel Briggs MD Attending Provider Active S tart: November 28, 2023 End: November 28, 2023 Team Status: Active Member Role Status Dates Mark Quick DO Primary Care Provider Active Start: November 28, 2023 Axel Briggs MD Attending Provider, Other Provide r Active Start: November 28, 2023 [employer]reader Relationship Specialty Start Date End Date Mark Quick MD [address] [place] [facility] [place] [id number] PCP - General Internal Medicine 11/29/22 [employer]reader Relationship Specialty Start Date End Date Mark Quick MD [address] [place] [facility] [place] [address] PCP - General Internal Medicine 11/29/22 [employer]reader Relationship Specialty Start Date End Date Mark Quick MD [address] [place] [facility] [address] PCP - General Internal Medicine 11/29/22 [employer]reader Relationship Specialty Start Date End Date Mark Quick MD [address] [place] [facility] [place] [address] PCP - General Internal Medicine 11/29/22 [employer]reader Relationship Specialty Start Date End Date Mark Quick MD [address] [place] [facility] [address] PCP - General Internal Medicine 11/29/22 [employer]reader Relationship Specialty Start Date End Date Mark Quick MD [address] [place] [facility] [place] [address] PCP - General Internal Medicine 11/29/22 [employer]reader Relationship Specialty Start Date End Date Mark Quick MD [address] [place] [facility] [place] [address] PCP - General Internal Medicine 11/29/22 [employer]reader Relationship Specialty Start Date End Date Mark Quick MD [address] [place] [facility] [place] [address] PCP - General Internal Medicine 11/29/22 [employer]reader Relationship Specialty Start Date End Date Mark Quick MD [address] [place] [facility] [place] [address] PCP - General Internal Medicine 11/29/22 [employer]reader Relationship Specialty Start Date End Date Mark Quick MD [address] [place] [facility] [address] PCP - General Internal Medicine 11/29/22 Team Status: Inactive Member Role Status Dates Mark Quick DO Primary Care Provide r, Attending Provider Active Start: August 09, 2024 End: August 09, 2024 Team Status: Inactive Member Role Status Dates Mark Quick DO Primary Care Provide r, Attending Provider Active Start: October 17, 2024 End: October 17, 2024 [employer]reader Relationship Specialty Start Date End Date Mark Quick MD [address] [place] [facility] [place] [address] PCP - General Internal Medicine 11/29/22 [employer]reader Relationship Specialty Start Date End Date Mark Quick MD PCP - General Internal Medicine 11/29/22 Team Status: Active Member Role Status Dates Mark Quick DO Primary Care Provide r, Attending Provider Active Start: October 25, 2024 Team Status: Active Member Role Status Dates Mark Quick DO Primary Care Provide r, Attending Provider Active Start: November 09, 2024 [employer] Spreader Relationship Specialty Start Date End Date AbdelrahmanMarkDO [address] [place] [address] PCP - General Internal Medicine 11/15/24 [employer]reader Relationship Specialty Start Date End Date Mark Quick [address] [place] [id number] PCP - General Internal Medicine 11/15/24 Goals (unrecognized section and content) Goals may be documented in a n alternate section FOR RECORDS PERTAINING TO PATIENTS WHO ARE OR HAVE BEEN ENROLLED IN A CHEMICAL DEPENDENCY/SUBSTANCEABUSE PROGRAM, SOME INFORMATION MAY BE OMITTED. This clinical summary was aggregated from multiple sources. Caution should be exercised in using it in the provision of clinical care. This summary normalizes information from multiple sources, and as a consequence, information in this document may materially change the coding, format and clinical context of patient data. In addition, data may be omitted in some cases. CLINICAL DECISIONS SHOULD BE BASED ON THE PRIMARY CLINICAL RECORDS. [employer] provides no warranty or guarantee of the accuracy or completeness of information in this document.
[2024-12-31 08:43] LABS: Hemoglobin 16.1 g/dL (14.0-18.0)
[2024-12-31] MEDS: ALBUTEROL SULFATE 2.5 MG/3 ML VIAL NEB IH (09:34)
--- NOTE | 2024-12-31 09:36 | RT_ITS ---
[facility] Test Date: 2024-12-31 Pat Name: ALLYSON FARMER Department: Room: - Gender: Male Bracer: Ra Kirkpatrick RRT : 1960 Requested By: [id number] Order Number: [id number] Reading MD: Darryn Sarabia Interpretive Statements Pulmonary function testing was completed according to ATS criteria. Findings were considered accurate and reproducible, with exception of post-bronchodilator FVC which did not meet ATS standards. Both pre- and post-bronchodilator values utilized for spirometry. Spirometry (based on pre-bronchodilator values): -FEV1/FVC: Reduced @ 60% -FEV1: Moderately reduced @ 67% -FVC: Normal @ 85% -There is a positive bronchodilator response in FEV1. Lung volumes by plethysmography (based on pre-bronchodilator values): -RV: Increased @ 186% -TLC: High normal @ 120% Diffusion capacity: -DLCO: Mild-moderate reduction @ 68% when corrected for Hb 16.1g/dL Flow-volume loop: -Moderate obstructive pattern Impressions: -Spirometry suggests moderate obstruction. There is a positive bronchodilator response. An elevated RV suggests air trapping. There is a [id number] reduced diffusion capacity. Overall study is compatible with asthma-COPD overlap or COPD with a bronchodilator response. Clinical correlation required. Electronically Signed On 01-01-2025 14:16:07 EDT by Darryn Sarabia
== END 2024-12-31 08:23 | disposition home or self-care (01) ==
LOC: CARD 08:23
PROVIDERS: PCP Internal Medicine
DX: J31.0 Chronic rhinitis (principal); R05.3 Chronic cough
CPT/HCPCS: 36415; 85018; 94060; 94726; 94729

== ENCOUNTER 2025-05-15 09:00 | Outpatient (OUT) | payer BC, SELFPAY ==
--- OUTSIDE RECORDS SUMMARY | 2020-10-23 05:30 | XMS_ITS | Continuity of Care Document ---
Author Organization [facility] Address [address] [place] [address] Phone Care Team Providers Care Cosmetics Supervisor Name Role Phone Baldemar Bryant Unavailable Unavailable Procedures Procedure Date Pfizer COVID Vaccine Admin Dose 2 COVID-19 Pfizer Pfizer COVID Vaccine Admin Dose 1 COVID-19 Pfizer Advance Directives Directive Yes / No Effective Date File Name No Information Encounters Encounter Description Practice Location Reason(s) For Visit Diagnoses Date Provider Providers Copied on Encounter [facility], [address] [place], [place], [id number], [place] tel:[phone] COVID ECHD No Information Caroi DO Mcdermott. [address] [place], [place], [id number], [place]. tel:[phone] [facility], [address] [place] [address], [id number], tel:[phone] COVID ECHD No Information Visci DO Baldemar. [address] [place], [place], [id number], [place]. tel:[phone] Family History Family Member Type Diagnosis Age At Onset No Information Immunizations Vaccine Date Status Comments Pfizer COVID administered Source: New Imm unization Record Pfizer COVID administered Source: New Imm unization Record Payers Payer name Insurance type Covered green party ID Authoriza tion(s) [place] [id number] [place] [id number] [place] [id number] Social History Type Description Quantity Date Captured [...]
--- OUTSIDE RECORDS SUMMARY | 2025-05-16 08:39 | XMS_ITS | CCD ---
Author Organization [facility] Care Team Providers Care Solution Advisor Name Role Phone Axel Briggs Unavailable Terra Connor Unavailable Mark Wheatley Unavailable DR MARK WHEATLEY Primary Care Unavailable MCMILLAN ., DR RENETTA Agee Attending Unavailable MCMILLAN ., DR RENETTA Agee Admitting Unavailable MCMILLAN ., DR RENETTA Agee Consulting Unavailable KATDANA CUENCA Consulting Unavailable SISTER, SU Consulting Unavailable [facility], DR DIXON Attending Unavailable CORRY, DR FLORES Primary Care Unavailable AUBURN, DR TERRA Landers Consulting Unavailable MISC, DR DIXON Admitting Unavailable AXEL BRIGGS Consulting Unavailable CORRY, DR FLORES Primary Care Unavailable DULCE, DR ESQUIVEL Attending Unavailable DULCE, DR ESQUIVEL Admitting Unavailable DULCE, DR ESQUIVEL Consulting Unavailable Mulugeta Bella Unavailable DO Mark Wheatley Primary Care Provider MD Axel Briggs Attending Provider [phone] Axel Briggs Attending Unavailable Axel Briggs Admitting [...] Unavailable Mark Wheatley DO Primary Care Provider [phone] Mark Wheatley DO Attending Provider Provider, Outside Attending Provider Unavailable Mulugeta Bella MD Attending Provider [phone] Aditya Baird APRN Attending Provider Mark Wheatley DO Primary Care Provider Mark Wheatley DO Attending Provider [phone] Allergies Allergy ClassificationReported Allergen(s)Allergy TypeDate of OnsetReaction(s) Facility (20 sources)moxifloxacinDrug Soxhubf85-62-3167KzmcimbDvyqrijywAdena [facility] (20 sources)CephalexinDrug Pfebmgb08-30-3962GfiwAwxaummwbMiddletown Hospital (4 sources)Allergies ReconciledPropensity to adverse reactionsWomen & Infants Hospital of [facility] FoxyP2 Other (4 sources)patient allergy list reviewed by nurse or physiciaPropensity to adverse mdfekiiwj18-70-8176Abekbfn:[facility] [employer] Other (9 sources)Singulair *ANTIASTHMATIC AND BRONCHODILATOR AGENTSPropensity to adverse -[phone] [place] FoxyP2 Other (5 sources)Singulair *ANTIASTHMATIC AND BAllergy to ybwbuyxcq42-58-2458XknolbbCleveland Clinic Akron GeneralComment on above:Free Text Allergy: Singulair *ANTIASTHMATIC AND BRONCHODILATOR AGENTS; Onset Date: 07/02/2021 (20 sources)PenicillinsPropensity to adverse -06-0574OttdFMBM Healthcare (15 sources)CiprofloxacinDrug Mdqnvkp77-61-6317XyvhhLIDY Healthcare (15 sources)levoFLOXacinDrug Wjujoud56-89-1072SyiwipnQNVL Healthcare (7 sources)montelukastDrug Hqojmem81-94-7468QshlielJXFM Healthcare Medications Current Medications MedicationDrug Class(es)DatesSig (Normalized)Sig (Original)[id number] 200 actuat albuterol 0.09 mg/actuat metered dose inhaler (20 sources)beta2-Adrenergic AgonistStart: 71-55-6125ccbt 1 puff(s) by inhalation every four hours as neededAlbuterol Sulfate 90 mcg/actuation HFA aerosol inhaler Active 2 PUFF INHALATION Q4H as needed July 05, 2024 1:00am Complies with drug therapyStart: 07-05-2024 End: 96-69-0427lvkp 1.25 mg by inhalation every four hours as neededAlbuterol Sulfate 2.5 mg /3 mL (0.083 %) solution for nebulization Discontinued 1.25 MG INHALATION Every 4 hours as needed July 05, 2024 1:00am January 07, 2025 1:58pmStart: 35-97-1324uzwf 90 ug by inhalation twice dailyAlbuterol Active [...] 1000 mg oral tablet (20 sources)Vitamin CStart: 18-54-3571snpx 1 g by mouth once dailyAscorbic Acid [...] sources)Platelet Aggregation Inhibitor, Nonsteroidal Anti-inflammatory Drug Start: 08-91-8059liai 1 capsule by mouth once dailyAspirin 81 mg Capsule Active 81 MG PO Daily June 02, 2021 1:00am Complies with drug therapytake 1 tablet by mouth once dailyaspirin 81 MG EC tablet Take 1 tablet by mouth Daily Active Aspirin 81 Activebaclofen 20 mg oral tablet (20 sources)gamma-Aminobutyric Acid-ergic AgonistStart: 02-22-2022 End: 07-28-3453wbds 1 tablet by mouth twice daily as neededbaclofen (Lioresal) 20 MG tablet TAKE 1 TABLET BY MOUTH TWICE A DAY NEEDED FOR 30 DAYS 03/23/2022 Cqyipt851 actuat budesonide 0.16 mg/actuat / formoterol fumarate 0.0048 mg/actuat / glycopyrrolate 0.009 mg/actuat metered dose inhaler (1 source)Corticosteroid, beta2-Adrenergic AgonistStart: 05-07-2025 Oukmqooegh-Klfpuckz-Cdcjmzyrat (Breztri Aerosphere) 160-9-4.8 mcg/actuation HFA aerosol inhaler Active INHALATION May 07, 2025 12:00am Complies with drug okzxqbi47 hr cetirizine hydrochloride 5 mg / pseudoephedrine hydrochloride 120 mg extended release oral tablet (20 sources)alpha-Adrenergic Agonist, Histamine-1 Receptor AntagonistStart: 13-42-3859johx 1 tablet by mouth once daily as neededCetirizine-Pseudoephedrine 5-120 mg tablet extended release 12 hr Active 1 TAB PO Daily January 16, 2024 12:00am FreeTextSi tablet as needed Orally Once a day; Note: Source Status: Taking; Refills: 5; Provider: Corry Agee Complies with drug therapyStart: 03-13-6308vmvu 1 tablet by mouth once daily as neededCetirizine-Pseudoephedrine 5-120 mg tablet extended release 12 hr Active 1 TAB PO Daily January 16, 2024 12:00am FreeTextSi tablet as needed Orally Once a day; Note: Source Status: Taking; Refills: 5; Provider: Corry Flores EStart: 33-28-5475ftmr 1 tablet by mouth every twenty-four hoursZyrTEC-D Allergy & Congestion 5-120 MG 1 tablet as needed Orally Once a day for 30 days Activecholecalciferol 0.025 mg oral tablet (8 sources)Vitamin DStart: 53-59-2306bflf 1 tablet by mouth once daily Cholecalciferol (Vitamin D3) (Vitamin D3) 25 mcg (1,000 unit) Tablet Active 25 MCG PO Daily June 02, 2021 1:00am Complies with drug therapyclobetasol propionate 0.5 mg/ml topical cream (12 sources)CorticosteroidStart: 11-23-2022 End: 72-05-9653zynqpxqevi (Temovate) 0.05 % cream APPLY THIN LAYER TO HANDS & NAILS DAILY MON-FRI,NO WEEKENDS,UNTIL CLEAR REPEAT NEEDED FOR FLARES 11/23/2022 06/14/2024 Discontinued (Ineffective)esomeprazole 40 mg delayed release oral capsule (20 sources)Proton Pump InhibitorStart: 89-56-6577zpiu 1 capsule by mouth twice dailyEsomeprazole Magnesium 40 mg capsule,delayed release(DR/EC) Active 0 .ROUTE .COMPLEX 180 August 23, 2024 8:07am TAKE 1 CAPSULE BY MOUTH TWICE A DAY ON AN EMPTY STOMACH FOLLOWED IN 30 MINUTES BY FOOD 90 Complies with drug therapyStart: 57-76-2539Fjmzbdtzyhug Magnesium 40 MG 1 capsule Orally twice daily on empty stomach followed in 30 minutes by food for 30 days November, ActiveStart: 10-19-2017 End: 43-73-8614vmob 1 capsule by mouth once dailyEsomeprazole Magnesium 40 mg capsule,delayed release(DR/EC) Discontinued 40 MG PO Daily July 05, 2024 1:00am August 23, 2024 8:07amEsomeprazole Magnesium 40 mg capsule,delayed release(DR/EC) (2 sources)Start: 51-57-8991eruu 1 capsule by mouth twice dailyEsomeprazole Magnesium 40 mg capsule,delayed release(DR/EC) Active 0 .ROUTE .COMPLEX 180 August 23, 2024 8:07am TAKE 1 CAPSULE BY MOUTH TWICE A DAY ON AN EMPTY STOMACH FOLLOWED IN 30 MINUTES BY FOOD 90ezetimibe 10 mg oral tablet (1 source)Dietary Cholesterol Absorption InhibitorStart: 94-27-3612myci 1 tablet by mouth once dailyEzetimibe 10 [...] spray into each nostril in the morning. Sjqagy44 actuat fluticasone furoate 0.1 mg/actuat / umeclidinium 0.0625 mg/actuat / vilanterol 0.025 mg/actuat dry powder inhaler (4 sources)Anticholinergic, Corticosteroid, beta2-Adrenergic AgonistStart: 62-77-3576pxuw 1 puff(s) by inhalation once jtnsuFzfqnuyqjhn-Mjaprtzfy-Ahkltk (Trelegy Ellipta) 100-62.5-25 MCG/ACT aerosol powder Indications: Chronic obstructive pulmonary disease, unspecified COPD type (HCC) Inhale 1 puff Daily 60 each 5 01/16/2025 Activegentamicin 0.001 mg/mg topical ointment (15 sources)Start: 68-88-0874wtavupvhun (Garamycin) 0.1 % ointment Indications: Bacterial infection Apply to hands BID prn 15 g 11 08/28/2024 ActiveStart: 03-73-2798mhqorzhlce (Garamycin) 0.1 % ointment Indications: Bacterial infection [...] DAY Complies with drug therapyStart: 08-14-2024 End: 03-51-9149usge 1 tablet by mouth once dailyTelmisartan-Hydrochlorothiazid 40-12.5 mg tablet Discontinued 1 TAB PO Daily August 14, 2024 1:00am December 16, 2024 7:40amlactobacillus rhamnosus gg [id number] unt oral capsule (2 sources)Start: 86-91-0220Pqwlskqdwmpjy Rhamnosus Gg (Probiotic Digestive Care) 20 billion cell capsule Active CELL PO January 07, 2025 12:00am Complies with drug therapylubiprostone 0.008 mg oral capsule (17 sources)Chloride Channel ActivatorStart: 02-06-2025 End: 95-14-5745iqwt 1 capsule by mouth once dailyLubiprostone (Amitiza) 8 mcg capsule Active 8 MCG PO Daily 90 90 March 12, 2025 3:22pm Complies with drug therapyStart: 15-53-6440ecjv 1 capsule by mouth once dailyLubiprostone 24 mcg capsule Active 24 MCG PO Daily 30 January 29, 2025 12:00am Complies with drug t herapyStart: 01-29-2025 End: 27-24-2062adkk 1 capsule by mouth once dailyLubiprostone 8 mcg capsule Discontinued 8 MCG PO Daily January 29, 2025 12:00am January 29, 2025 9:48amStart: 04-08-2024 End: 45-70-5360dzqa 1 capsule by mouth in the morninglubiprostone (Amitiza) 8 MCG capsule Take 8 mcg by mouth in the morning and 8 mcg before bedtime. 06/14/2024 Discontinued (Med list cleanup)Start: 02-17-2024 End: 84-61-1929hptk 1 capsule by mouth twice dailyLubiprostone (Amitiza) 8 mcg capsule Discontinued 8 MCG PO Twice daily 60 February 17, 2024 12:00am April 24, 2024 1:59pmStart: 02-17-2024 End: 82-92-2807bqip 1 capsule by mouth twice dailyLubiprostone (Amitiza) 8 mcg capsule Discontinued 8 MCG PO Twice daily 60 February 17, 2024 12:00am April 24, 2024 1:59pmomeprazole 40 mg delayed release oral capsule (20 sources)Proton Pump InhibitorStart: 04-26-2022 End: 86-89-0980oydu 1 capsule by mouth twice daily 30 minutes before mealtime omeprazole (PriLOSEC) [address] capsule TAKE 1 CAPSULE BY MOUTH 30 MINUTES BEFORE MEAL TWICE DAILY FOR 30 DAYS 05/20/2022 06/14/2024 Discontinued (Med list cleanup)Start: 06-02-2021 End: 73-91-7908lioa 1 capsule by mouth once dailyOmeprazole 40 mg Capsule,Delayed Release(Dr/Ec) Discontinued 40 MG PO Daily June 02, 2021 1:00am July 05, 2024 9:12ampaxlovid (300/100) 20 x 150 mg & 10 x 100mg tablet therapy pack (2 sources)Start: 87-16-0245cfki 3 tablets by mouth every twelve hoursPaxlovid (300/100) 20 x 150 MG & 10 x 100MG 3 tablets Orally Twice a day for 5 days Aug, Activephentermine hydrochloride 37.5 mg oral tablet (1 source)Sympathomimetic Amine AnorecticStart: 59-14-4325qwhy 1 tablet by mouth once daily 30 minutes after breakfastPhentermine (Adipex-P) 37.5 mg tablet Active 37.5 MG PO Daily May 07, 2025 12:00am mustadminister 30 minutes before or 1-2 hours after breakfast Complies with drug therapy polyethylene glycol 3350 01098 mg powder for oral solution (20 sources)Osmotic LaxativeStart: 42-12-8269Hbgadzpchfzj Glycol 3350 (Miralax) 17 gram powder in packet Active 17 GM PO Daily January 07, 2025 12:00am Complies with drug therapyStart: 11-22-2023 End: 02-98-5197Elbcqksbmbib Glycol 3350 (Miralax) 17 gram/dose powder Discontinued 17 GM PO Twice daily November 24, 2023 12:00am February 17, 2024 8:51am Take 17 grams in liquid three times a day for constipationStart: 08-25-2023 MiraLax 17 GM/SCOOP 1 scoop mixed with 8 ounces of fluid Orally Once a day for 30 days Aug,ctiveStart: 93-37-5900cimx 17 g by mouth twice daily Polyethylene Glycol 3350 17 GM/SCOOP 17gm Orally twice a day for 30 day(s) Jun, Not-TakingStart: 37-59-6919mndb 17 g by mouth once dailyPolyethylene Glycol 3350 17 GM/SCOOP 17gm Orally Once a day for 30 day(s) please dispense largest quantity Mar, ActiveRoflumilast (5 sources)Phosphodiesterase 4 InhibitorStart: 10-66-3278Pftoaglyqts (Zoryve) 0.15 % cream Indications: Other atopic dermatitis Apply 1 Application topically Daily as needed (apply to hands when flared, hold when clear) 60 g 11 01/07/2025 Activetamsulosin hydrochloride 0.4 mg oral capsule (20 sources)alpha-Adrenergic BlockerStart: 39-83-9895ljxv 1 capsule by mouth once daily at bedtimeTamsulosin 0.4 mg capsule Active 0.4 MG PO Daily at bedtime 90 April 12, 2025 10:21am Complies with drug therapyStart: 12-12-2023 End: 47-76-8242Wdlqmtabre 0.4 mg capsule Discontinued 0 .ROUTE .COMPLEX March 07, 2024 1:32pm April 12, 2025 10:22am TAKE 1 CAPSULE BY MOUTH 30 MINUTES AFTER EVENING MEAL EVERY NIGHTStart: 10-12-2022 End: 44-12-8458xzjy 1 capsule by mouth once dailyTamsulosin 0.4 mg capsule Discontinued 0.4 MG PO Daily November 24, 2023 12:00am December 12, 2023 1:05pmStart: 86-49-8369eicxxgepen (Flomax) 0.4 MG 24 hr capsule 10/12/2022 ActiveTamsulosin HCl Not-TakingTamsulosin HCl Activetazarotene 1 mg/ml topical cream (12 sources)RetinoidStart: 11-24-2022 End: 71-30-3342ffqwspkdrn (Tazorac) 0.1 % cream APPLY TO HANDS DAILY 11/24/2022 06/14/2024 Discontinued (Med list cleanup)terbinafine 250 mg oral tablet (20 sources)Allylamine AntifungalStart: 05-17-2024 End: 77-63-3712xwxf 1 tablet by mouth once dailyterbinafine (LamISIL) [...] 90 mcg/actuation Aerosol (4 sources)Start: 06-02-2021 End: 97-28-3609ghxc 90 ug by inhalation twice dailyAlbuterol 90 mcg/actuation Aerosol Discontinued 90 MCG INHALATION Twice daily June 02, 2021 1:00am January 16, 2024 1:24pmamoxicillin 875 mg / clavulanate 125 mg oral tablet (8 sources)Penicillin-class AntibacterialStart: 08-09-2024 End: 22-36-9843jlcn 1 tablet by mouth every twelve hoursAmoxicillin-Pot Clavulanate 875-125 mg tablet Discontinued 1 TAB PO Every 12 hours September 4:28pm January 07, 2025 1:58pmbenzonatate 200 mg oral capsule (16 sources)Non-narcotic AntitussiveStart: 07-06-2024 End: 28-29-8039cbqo 1 capsule by mouth three times dailyBenzonatate 200 mg capsule Discontinued 200 MG PO Three times daily 30 July 06, 2024 1:00am January 07, 2025 1:58pmStart: 93-16-4446ipmm 1 capsule by mouth every eight hoursBenzonatate 200 MG 1 capsule Orally Three times a day for 10 Aug, Not-Takingcefuroxime 500 mg oral tablet (12 sources)Cephalosporin AntibacterialStart: 51-15-9612hmyh 1 tablet by mouth every twelve hoursCefuroxime Axetil 500 MG 1 tablet Orally every 12 hrs for 5 day(s) Aug, Not-Takingciprofloxacin 500 mg oral tablet (8 sources)Quinolone AntimicrobialStart: 04-24-2024 End: 89-43-0179dzsp 1 tablet by mouth twice dailyCiprofloxacin Hcl (Cipro) 500 mg tablet Discontinued 500 MG PO Twice daily 13 05April 24, 2024 12:00am July 05, 2024 9:16amStart: 01-16-2024 End: 70-18-1185kmfu 1 tablet by mouth twice dailyCiprofloxacin Hcl 500 mg tablet Discontinued 500 MG PO Twice daily 13 05January 16, 2024 12:00am February 17, 2024 8:50amdicyclomine hydrochloride 20 mg oral tablet (20 sources)AnticholinergicStart: 64-37-3500ncnl 1 tablet by mouth at bedtime Dicyclomine HCl 20 MG 1 tablet Orally AC and HS for 10 days Sep, Not-TakingStart: 87-17-0661btjw 1 tablet by mouth three times daily as needed Dicyclomine HCl 20 MG 1 tablet Orally Three times a day as needed for 30 day(s) May, ActivediphenhydrAMINE citrate 38 mg / ibuprofen 200 mg oral tablet (5 sources)Histamine-1 Receptor Antagonist, Nonsteroidal Anti-inflammatory Drug Start: 06-02-2021 End: 53-85-2078tkgh 1 capsule by mouth once daily at bedtime as needed for sleep Ibuprofen-Diphenhydramine Cit (Advil Pm) 200-38 mg Tablet Discontinued 1 CAP PO Daily at bedtime asneeded for sleep June 02, 2021 1:00am January 16, 2024 1:24pmdoxycycline hyclate 100 mg oral capsule (20 sources)Tetracycline-class DrugStart: 08-31-2024 End: 39-38-0766igay 1 capsule by mouth twice dailyDoxycycline Hyclate 100 mg capsule Discontinued 100 MG PO Twice daily 14 August 31, 2024 6:27pm January 07, 2025 1:57pmStart: 06-26-2024 End: 86-95-1190mmbz 1 capsule by mouth twice dailyDoxycycline Hyclate 100 mg capsule Discontinued 100 MG PO Twice daily 14 June 26, 2024 1:00am July 05, 2024 9:15amStart: 05-09-2024 End: 83-27-8553inel 1 capsule by mouth twice dailydoxycycline (Monodox) 100 MG capsule Indications: Bacterial infection Take 1 capsule, by mouth bid,x 10 days 20 capsule 05/09/2024 12/25/2024 Discontinued (Therapy completed)Start: 87-28-7677clvo 1 capsule by mouth twice dailyDoxycycline Hyclate 100 MG 1 capsule Orally twice daily for 7 days Aug, Kxtnpc81 actuat fluticasone propionate 0.25 mg/actuat / salmeterol 0.05 mg/actuat dry powder inhaler (20 sources)Corticosteroid, beta2-Adrenergic AgonistStart: 09-19-2024 End: 34-60-5044merg 1 puff(s) by inhalation twice dailyFluticasone Propion- Salmeterol 250-50 mcg/dose blister with device Discontinued 0 .ROUTE .COMPLEX 18 0 September 19, 2024 2:12pm January 16, 2025 12:31pm INHALE 1 PUFF INTO THE LUNGS TWICE A DAYStart: 12-12-2023 End: 17-65-7152axfu 1 puff(s) by inhalation twice dailyFluticasone Propion- Salmeterol (Wixela Inhub) 250-50 mcg/dose blister with device Discontinued 0 .RO ESDRAS .COMPLEX 180 December 12, 2023 1:24pm September 19, 2024 2:12pm INHALE 1 PUFF INTO THE LUNGS TWICE A DAY FOR 30 DAYSStart: 12-12-2023 End: 14-29-1119Kuuilnfpymb Propion-Salmeterol (Advair Diskus) 250-50 mcg/dose blister with device Discontinued 1 INH INHALATION Twice daily December 12, 2023 12:00am January 16, 2024 1:24pmStart: 09-16-2023 End: 24-50-6806Ihesowftohx Propion-Salmeterol (Wixela Inhub) 250-50 mcg/dose blister with device Discontinued 1 INH INHALATION Every 12 hours 60 30 September 16, 2023 1:00am December 12, 2023 1:27pmStart: 04-25-2023 End: 66-94-1293Nucsgt Diskus 250-50 MCG/ACT aerosol powder 04/25/2023 01/16/2025 DiscontinuedStart: 68-46-3702otji 1 puff(s) by inhalation twice dailyAdvair Diskus 250-50 MCG/ACT aerosol powder INHALE 1 PUFF INTO THE LUNGS TWICE A DAY FOR 30 DAYS 04/25/2023 ActiveStart: 16-49-7853gdyc 1 puff(s) by inhalation twice dailyFluticasone-Salmeterol 250-50 MCG/ACT 1 puff Inhalation Twice a day for 30 days Mar, UygvmmQohcqjasbmz-Gjiiuuugw-Xdbkmsmg (2 sources)Start: 01-16-2025 End: 87-84-9248Iqynayjkkze-Umeclidin-Vilanter (Trelegy Ellipta) 200-62.5-25 mcg blister with device Discontinued 1INH INHALATION Daily 60 January 16, 2025 12:00am May 07, 2025 10:54amStart: 01-16-2025 Qtvfmzatayp-Gjhwsszca-Scgtlujh (Trelegy Ellipta) 200-62.5-25 mcg blister with device Active 1 INH INHALATION Daily 60 January 16, 2025 12:00am Complies with drug therapyhydroCHLOROthiazide 12.5 mg / lisinopril 10 mg oral tablet (20 sources)Thiazide Diuretic, Angiotensin Converting Enzyme InhibitorStart: 08-07-2024 End: 31-56-3514qobe 1 tablet by mouth once dailyLisinopril-Hydrochlorothiazide 20-25 mg tablet Discontinued 1 TAB PO Daily August 0751:00am August 14, 2024 11:16amStart: 07-06-2024 End: 63-21-7511ptbu 1 tablet by mouth once dailyLisinopril-Hydrochlorothiazide 10-12.5 mg tablet Discontinued 1 TAB PO Daily August 07, 2024 1:43pm August 07, 2024 1:44pmlinaclotide 0.145 mg oral capsule (4 sources)Guanylate Cyclase-C AgonistStart: 01-30-2024 End: 51-03-9905zatu 1 capsule by mouth once dailyLinaclotide (Linzess) 145 mcg capsule Discontinued 145 MCG PO Daily 30 January 30, 2024 12:00am February 17, 2024 8:51amloperamide hydrochloride 2 mg oral capsule (5 sources)Opioid AgonistStart: 06-02-2021 End: 09-00-0570kkze 1 capsule by mouth once daily as neededLoperamide 2 mg Capsule Discontinued 2 MG PO Daily as needed for loose stool June 02, 2021 1:00am January 16, 2024 1:24pmmontelukast 10 mg oral tablet (5 sources)Leukotriene Receptor AntagonistStart: 06-02-2021 End: 98-66-9681mbxx 1 tablet by mouth once dailyMontelukast 10 mg tablet Discontinued 10 MG PO Daily June 02, 2021 1:00am November 24, 2023 12:27pm plecanatide 3 mg oral tablet (4 sources)Start: 01-07-2025 End: 78-06-9336lzou 1 tablet by mouth once dailyPlecanatide (Trulance) 3 mg tablet Discontinued 3 MG PO Daily January 07, 2025 12:00am January 29, 2025 9:31am Start: 01-16-2024 End: 74-03-0041srzk 1 tablet by mouth once dailyPlecanatide (Trulance) 3 mg tablet Discontinued 3 MG PO Daily January 16, 2024 12:00am January 30, 2024 11:43amPlecanatide (Trulance) 3 mg tablet (2 sources)Start: 01-16-2024 End: 68-13-5270cftm 1 tablet by mouth once dailyPlecanatide (Trulance) 3 mg tablet Discontinued 3 MG PO Daily January 16, 2024 12:00am January 30, 2024 11:43amPolyethylene Glycol 3350 (Miralax) 17 gram/dose powder (3 sources)Start: 11-22-2023 End: 28-20-5189Yyalkmpicayq Glycol 3350 (Miralax) 17 gram/dose powder Discontinued 17 GM PO Three times daily November 22, 2023 12:00am November 24, 2023 12:29pm Take 17 grams in liquid three times a day for constipation predniSONE 20 mg oral tablet (8 sources)Start: 08-09-2024 End: 48-96-3747Chxamfapxi 20 mg tablet Discontinued 20 MG PO As Directed August 09, 2024 1:00am January 07, 2025 1:57pm 1 tab tid w/ food x 3 days, then bid w/ food x 3 days, then qd w/ food x 3 daysStart: 07-05-2024 End: 64-19-2784ulgz 2 tablets by mouth once dailyPrednisone 10 mg tablet Discontinued 20 MG PO Daily July 05, 2024 1:00am August 09, 2024 11 :58amrosuvastatin calcium 20 mg oral tablet (20 sources)HMG-CoA Reductase InhibitorStart: 06-02-2021 End: 92-19-4928wuhb 1 tablet by mouth every other dayRosuvastatin 20 mg Tablet Discontinued 20 MG PO .every other day June 02, 2021 1:00am January 16, 2024 1:25pmtake 1 tablet by mouth in the eveningRosuvastatin Calcium 20 MG TAKE 1 TABLET BY MOUTH IN THE EVENING ActiveCrestor 20MG ActiveSod Picosulf-Mag Ox- Citric Ac (5 sources)Start: 11-22-2023 End: 06-96-9657xtup 1 mL by mouth once dailySod Picosulf-Mag Ox-Citric Ac (Clenpiq) 10 mg-3.5 gram- 12 gram/175 mL solution Discontinued 175 MLPO Daily 07 25November 22, 2023 12:00am January 16, 2024 1:25pm please follow instructions provided byDr. Briggs's office.Start: 46-41-4709wmcy 1 mL by mouth once dailySod Picosulf-Mag Ox-Citric Ac (Clenpiq) 10 mg-3.5 gram- 12 gram/175 mL solution Active 175 ML PO Daily 07 25November 22, 2023 12:00am please follow instructions provided by Dr. Briggs's office.tacrolimus 0.001 mg/mg topical ointment (20 sources)Calcineurin Inhibitor ImmunosuppressantStart: 05-17-2024 End: 17-59-8322efkgalskvf (Protopic) 0.1 % ointment Indications: Encounter for removal of sutures Apply topically 2 (two) times a day 60 g 3 05/17/2024 01/10/2025 Discontinued (Therapy completed)ubidecarenone 200 mg oral capsule (14 sources)Start: 06-02-2021 End: 78-49-2695Opwkmsix Q10 (Co Q-10) 200 mg Capsule Discontinued 200 MG PO Daily June 02, 2021 1:00am January 16, 2024 1:84saFlC37 200 MG as directed Orally ActiveZinc (20 sources)Start: 06-02-2021 End: 48-43-2394yxxm 1 tablet by mouth once dailyZinc 50 mg Tablet Discontinued 50 MG PO Daily June 02, 2021 1:00am November 24, 2023 12:28pmStart: 06-02-2021 End: 86-53-7749ztnx 50 mg by mouth once dailyZinc Discontinued 50 MG PO Daily June 02, 2021 1:00am November 24, 2023 12:28pmZinc Not-TakingZinc Active Problems Active Problems Problem ClassificationProblemDateDocumented DateEpisodic/ChronicAbdominal pain (20 sources)Stomach cramps; Translations: [Unspecified abdominal pain]Onset: 01-29-2014 Resolved: 90-95-8001OhjehsjiNnfzo and unspecified renal failure (2 sources)Acute kidney failure, unspecified; Translations: [ACUTE KIDNEY FAILURE UNSPECIFIED]Onset: 31-17-7233LnauefoqHqeuu bronchitis (20 sources)Acute bronchitis due to other specified organisms; Translations: [Acute bronchitis]Onset: 62-24-9675JbgfdcdoShugjgl-related disorders (9 sources)Alcohol abuse; Translations: [Alcohol abuse, uncomplicated]Chronic Allergic reactions (4 sources)Atopic dermatitis; Translations: [Other atopic dermatitis]05-31-2024 ChronicChronic obstructive pulmonary disease and bronchiectasis (20 sources)Chronic obstructive pulmonary disease with acute lower respiratory infection; Translations: [Chronic obstructive pulmonary disease with (acute) lower respiratory infection]Onset: 08-04-2018 Resolved: 25-06-3808EzvpsltHetxfmqwx of lipid metabolism (20 sources)Familial hypercholesterolemia; Translations: [Familial hypercholesterolemia]Onset: 14-93-7957ToflnvyVgobeok on above:Problem List clean-up per request of Phys. EHR CmteDiverticulosis and diverticulitis (20 sources)Diverticulitis of colon; Translations: [Diverticulitis of intestine, part unspecified, without perforation or abscess without bleeding]Onset: 09-05-2018 Resolved: [id number] disorders (20 sources)Gastroesophageal reflux disease; Translations: [Gastro-esophageal reflux disease without esophagitis]Onset: 11-15-2014 Resolved: 99-87-6438VnanfkrEmjscakyv hypertension (10 sources)Hypertensive disorder; Translations: [Essential (primary) hypertension]Onset: 01-07-2025 Resolved: [id number] and electrolyte disorders (2 sources)Dehydration; Translations: [DEHYDRATION]Onset: 70-24-2577Hcugmjed Genitourinary symptoms and ill-defined conditions (9 sources)Peterson hematuria; Translations: [Gross hematuria]EpisodicHyperplasia of prostate (20 sources)Lower urinary tract symptoms due to benign prostatic hypertrophy; Translations: [Benign prostatic hyperplasia with lower urinary tract symptoms] Onset: 48-48-9775DfnsnfsGesbfhibmypkq and screening for infectious disease (18 sources)Nonspecific tuberculin test reaction ; Translations: [Nonspecific reaction to tuberculin skin test without active tuberculosis]EpisodicIntestinal infection (2 sources)Campylobacter enteritis; Translations: [CAMPYLOBACTER ENTERITIS] Onset: 68-96-0652TfjloubuQwujdoh (20 sources)Onychomycosis due to dermatophyte ; Translations: [Dermatophytosis of nail]Onset: 210348-21-6176DldcjgcoDvcchmxnw of unspecified nature or uncertain behavior (2 sources)Neoplastic disease; Translations: [Neoplasm of unspecified behavior of bone, soft tissue, and skin]46-19-6008AgkdzguvMgocjxquikefem (9 sources)Osteoarthritis; Translations: [Polyosteoarthritis, unspecified]Onset: 62-51-5814WbgtvtaRvuzr aftercare (1 source)half-way (current) use of aspirin; Translations: [GROUP HOME CURRENT USE OF ASPIRIN]Onset: 78-50-3233JvzqytgdMsxqa aftercare (1 source)Other terminal gauger (current) drug therapy; Translations: [OTH OBSTETRICAL TECH CURRENT DRUG THERAPY]Onset: 00-04-1177ZxajiazuRvold aftercare (9 sources)Long-term current use of drug therapy; Translations: [Other terminal gauger (current) drug therapy]EpisodicOther aftercare (2 sources)Removal of sutures done; Translations: [Encounter for removal of sutures]37-98-9959FslywgvdFdpqk aftercare (2 sources)Taking high risk medication; Translations: [Other correction (current) drug therapy]33-00-2744CxqiuimpHinpl and unspecified benign neoplasm (9 sources)Polyp of colon; Translations: [Polyp of colon]EpisodicOther congenital anomalies (20 sources)Congenital anomaly of larynx; 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]Onset: 295506-09-0443JwayoxeCttsh congenital anomalies (2 sources)Other congenital malformations of larynxChronicOther disorders of stomach and duodenum (20 sources)Indigestion; Translations: [Functional dyspepsia]89-34-1200Bukkqjsh Other disorders of stomach and duodenum (1 [...] [Irritable bowel syndrome with constipation]Onset: 01-07-2025 Resolved: 342566-41-8540YlsaclqZkhuv gastrointestinal disorders (4 sources)Irritable bowel syndrome with constipation; Translations: [Irritable bowel syndrome]ChronicOther gastrointestinal disorders (3 sources)Irritable bowel syndrome; Translations: [Irritable bowel syndrome without diarrhea]62-54-3455IjjarnbRlbor gastrointestinal disorders (17 sources)Swollen abdomen; Translations: [Abdominal [...] disorders (5 sources)Diarrhea, unspecified; Translations: [DIARRHEA UNSPECIFIED]Onset: 56-34-8473IvtgpebjVeflc gastrointestinal disorders (3 sources)Personal history of other diseases of the digestive systemEpisodic Other gastrointestinal disorders (9 sources)Disorder of gastrointestinal tract; Translations: [Other specified diseases of the digestive system]Onset: 01-07-2025 Resolved: 557519-06-3152WeztswprSkjxb lower respiratory disease (19 sources)Chronic cough; Translations: [Chronic cough]Onset: 01-07-2025 Resolved: 785835-81-3344CwxqlxzbWmzjn lower respiratory disease (1 source)Other forms of dyspneaEpisodicOther lower respiratory disease (9 sources)Hypoxia; Translations: [Hypoxemia]Onset: 01-07-2025 Resolved: 252132-37-5293ImhdinkaJzcvs non-epithelial cancer of skin (9 sources)Squamous cell carcinoma of upper extremity; Translations: [Squamous cell carcinoma of skin of unspecified upper limb, including shoulder]Episodic Other nutritional; endocrine; and metabolic disorders (20 sources)Obese class I; Translations: [Body mass index (BMI) 32.0-32.9, adult]Onset: 48-17-1799JdgbzsiImydc nutritional; endocrine; and metabolic disorders (9 sources)Morbid obesity; Translations: [Morbid (severe) obesity due to excess calories]Onset: 21-67-8671CofgnarAhflc nutritional; endocrine; and metabolic disorders (9 sources)Simple obesity ; Translations: [Other obesity due to excess calories] Onset: 88-23-2181YmgrhnuGvxup nutritional; endocrine; and metabolic disorders (11 sources)Obesity; Translations: [Obesity, unspecified]28-45-2418LcpruxmOhglm nutritional; endocrine; and metabolic disorders (9 sources)Body [...] mechanism; Translations: [Patient encounter status]Onset: 09-22-2015 Resolved: 477265-44-8871InoiaxidXzfsv skin disorders (2 sources)Eruption; Translations: [Rash and other nonspecific skin eruption] 60-32-1376DuykauwfArsms skin disorders (4 sources)Actinic keratosis; Translations: [Actinic keratosis]05-31-2024 EpisodicOther skin disorders (2 sources)Skin tag; Translations: [Other hypertrophic disorders of the skin] 33-30-4197GwwljrvoKqyls skin disorders (3 sources)Asteatosis cutis; Translations: [Xerosis cutis]47-84-8494Bolkfgax Other upper respiratory disease (9 sources)Allergic rhinitis; Translations: [Allergic rhinitis, unspecified] Onset: 99-33-1392SdiyrenXiyuh upper respiratory disease (9 sources)Vasomotor rhinitis; Translations: [Vasomotor rhinitis]ChronicOther upper respiratory disease (20 sources)Chronic rhinitis; Translations: [Chronic rhinitis]Onset: 12-16-2022 93-93-1926ThejfdxRhnfg upper respiratory disease (9 sources)Seasonal allergic rhinitis; Translations: [Other seasonal allergic rhinitis]Onset: 01-07-2025 Resolved: 590210-02-5732TjghugwWntvk upper respiratory disease (2 sources)Other seasonal allergic rhinitis; Translations: [Allergic rhinitis, cause unspecified]94-35-4986IaagqauFzjaa upper respiratory infections (20 sources)Sinusitis; Translations: [Chronic sinusitis, unspecified]Onset: 772954-66-2153ZitxdakIhpwq upper respiratory infections (20 sources)Acute maxillary sinusitis; Translations: [Acute maxillary sinusitis, unspecified]Onset: 36-85-4862BcorgxurAbfzri media and related conditions (20 sources)Acute suppurative otitis media without spontaneous rupture of ear drum; Translations: [Acute suppurative otitis media without spontaneous rupture of ear drum, left ear]EpisodicPneumonia (except that caused by tuberculosis or sexually transmitted disease) (18 sources)Inactive tuberculosis; 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]Onset: 01-07-2025 Resolved: 840725-64-4789HbopihhyBnlqiabb codes; unclassified (2 sources)Hypersomnia; Translations: [Hypersomnia, unspecified]03-13-2025 ChronicResidual codes; unclassified (9 sources)Immunization refused ; Translations: [Immunization not carried out because of patient refusal]EpisodicResidual codes; unclassified (20 sources)Tobacco user; Translations: [Tobacco use]Onset: EpisodicResidual codes; unclassified (10 sources)Family history of cancer of colon; Translations: [Family history of malignant neoplasm of digestiveorgans]Onset: 01-07-2025 Resolved: 500617-77-3237XasyfzsnAkfeurs on above:Problem List clean-up per request of Phys. EHR CmteSpondylosis; intervertebral disc disorders; other back problems (9 sources)Cervical spondylosis without myelopathy; Translations: [Spondylosis without myelopathy or radiculopathy, cervical region]ChronicSprains and strains (18 sources)Neck sprain; Translations: [Strain of muscle, fascia and tendon at neck level, initial encounter]EpisodicSubstance-related disorders (20 sources)Nicotine dependence; Translations: [Nicotine dependence, cigarettes, uncomplicated]Onset: 11-15-2014 Resolved: 95-91-9447QezaoeqKmkqdoeatmlj (1 source)CONTACT W/AND (SUSP) EXPOS COVID-19; Translations: [CONTACT W/AND (SUSP) EXPOS COVID-19]Onset: 35-88-0642Bytjmcqtqruk (9 sources)Exposure to acute respiratory syndrome coronavirus 2; Translations: [Contact with and (suspected) exposure to COVID-19]Viral infection (10 sources)Disease caused by 2019-nCoV; Translations: [COVID-19] Past or Other Problems Problem ClassificationProblemDateDocumented DateEpisodic/ChronicAllergic reactions (18 sources)Allergic contact dermatitis due to plants, except food; Translations: [Allergic contact dermatitis due to plants, except food]Onset: 25-39-7215NnogjjtpBykrcepxos disorders (2 sources)Esophageal disorders; Translations: [Gastro-esophageal reflux disease with esophagitis, without bleeding]Inflammation; infection of eye (except that caused by tuberculosis or sexually transmitteddisease) (9 sources)Acute atopic conjunctivitis of left eye; Translations: [Acute atopic conjunctivitis, left eye] Resolved: 60-89-7424NvhiaukoAbytwecuh (9 sources)Influenza; Translations: [Influenza with other respiratory manifestations]Onset: 64-75-0910GdvhxyanDlvapya and fatigue (9 sources)Malaise and fatigue; Translations: [Other malaise and fatigue]Onset: 91-03-9505WoqoboqiTgkjpb and vomiting (9 sources)Nausea; Translations: [Nausea]Onset: 10-11-6559IwkjczspUerklxfqfnmcp gastroenteritis (5 sources)Noninfective gastroenteritis and colitis, unspecified; Translations: [NONINFECTIVE GE AND COLITIS UNS]Onset: 79-52-7456YxcidaywIxtcw connective tissue disease (9 sources)Synovitis and tenosynovitis; Translations: [Synovitis and tenosynovitis, unspecified]Onset: 56-35-6355MztkdyvzEvryu connective tissue disease (9 sources)Pes anserinus tendinitis and bursitis; Translations: [Pes anserinus tendinitis or bursitis]Onset: 44-01-5646IoinyvndFvrjl ear and sense organ disorders (20 sources)Hearing loss; Translations: [Unspecified hearing loss, unspecified ear]Onset: 10-23-2020 Resolved: 092723-47-4103OjwtulyEvebt gastrointestinal disorders (3 sources)Abdominal distension (gaseous); Translations: [ABDOMINAL DISTENSION GASEOUS]Onset: 53-09-1600GoursmgvOsbsq gastrointestinal disorders (9 sources)Flatulence, eructation and gas pain; Translations: [Abdominal distension (gaseous)]Onset: 01-29-3493KccoylilDkwjc gastrointestinal disorders (9 sources)Digestive symptom; Translations: [Other symptoms involving digestive system]Onset: 08-85-7416EtwawfywKsphu non-traumatic joint disorders (9 sources)Arthralgia of the lower leg; Translations: [Pain in unspecified knee] Onset: 80-84-1136XhislzqvGvqyk skin disorders (9 sources)Localized swelling, mass and lump, unspecified; Translations: [Localized mass]Onset: 30-48-7760XppmaddxHvxt and subcutaneous tissue infections (9 sources)Cellulitis of right axilla; Translations: [Cellulitis of right axilla]Onset: 76-93-9320UcylqucmTukjskseujr injury; contusion (9 sources)Contusion of lower leg; Translations: [Contusion of unspecified lower leg, initial encounter]Onset: 56-02-2925TehgnptgNofpkzkgbnko (9 sources)Long-term current use of drug therapy; Translations: [Long-term (current) use of other medications]Onset: 84-58-1877Zsksuoduefsx (1 source)Post COVID-19 condition, 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Unclassified (2 sources)Latent tuberculosisUnclassified (2 sources)Removal of sutures [id number] Results Test NameValueInterpretationReference RangeFacilityHemoglobin [Mass/volume] in Bloodon 49-36-9012Fthqdzkfnl (Bld) [Mass/Vol]16.1 g/dL14.0-18.0[facility] OhioNo Panel Informationon 31-76-3932PWDZSaint Francis Medical CenterType of biopsy: tangential Informed consent: discussed and [...] taken yes Amount of lidocaine used: 0.5 [facility] CenterEstimated glomerular filtration rate (GFR) non- Americanon 51-60-2046LSY/1.73 sq M.predicted among non-blacks MDRD (S/P/Bld) [Vol rate/Area]Estimated glomerular filtration rate (GFR) non- AmericanLow>=60 mL/min/1.73m 2FTriHealthLaboratory - Chemistry and Chemistry - challengeon 00-91-9742Oocobzogaa [Mass/Vol]1.34 mg/dLHigh0.70-1.30[facility] OhioGFR/1.73 sq M.predicted MDRD (S/P/Bld) [Vol rate/Area]mL/min/{1.73_m2} >=60 mL/min/1.[address]m [address] [place], [place] [address]No Panel Informationon 85-14-8281ZUQFSaint Francis Medical CenterNo Panel Informationon 35-66-6325Vmgf of biopsy: punch Informed consent: discussed and [...] Number of sutures used: 2 Photo taken [facility] AUTO DIFFon 22-67-0610YHSI #0.1 103/ulNormal0.0-0.1[facility] GlenbeighComment on above: Performed By: #### CBC #### [facility] [address] [address] [address] Kyle AdamsonBasophils/100 WBC (Bld)0.8 %Normal0.2-2.0The [facility] Comment on above:Performed By: #### CBC #### [facility] [address] [address] [address] Kyle Saravia #0.2 103/ulNormal0.0-0.7The [facility] HospitalComment on above: Performed By: #### CBC #### [facility] [address] [address] [address] Kyle Holtosinophils/100 WBC (Bld)3.7 %Normal0.9-7.0[facility] Comment on above:Performed By: #### CBC #### [facility] [address] [address] [address] Kyle Holtrythrocyte distribution width (RBC) [Ratio]14.5 %Knnpef38.0-15.0 [facility] GlenbeighComment on above:Performed By: #### CBC #### [facility] [address] [place] [address] Dr. Kyle AdamsonHematocrit (Bld) [Volume fraction]44.3 %Drvslw75.0-54.0The [facility] HospitalComment on above:Performed By: #### CBC #### [facility] [address] [place] [address] Dr. Kyle AdamsonHemoglobin (Bld) [Mass/Vol]14.9 g/gXHphydu44.0-18.0The [facility] HospitalComment on above:Performed By: #### CBC #### [facility] [address] [place] [address] Dr. Kyle Guerrero #0.06 10e3/ulCritically high0.00-0.03[facility] Comment on above:Performed By: #### CBC #### [facility] [address] [place] [address] Dr. Kyle Guerrero %0.9 %Critically high0.0-0.5The [facility] HospitalComment on above:Performed By: #### CBC #### [facility] [address] [place] [address] Dr. Kyle Coleman #2.3 103/ulNormal1.2-3.8The [facility] HospitalComment on above:Performed By: #### CBC #### [facility] [address] [place] [address] Dr. Kyle Paulsonhocytes/100 WBC (Bld)35.9 %Bkadew93.5-60.0The [facility] HospitalComment on above:Performed By: #### CBC #### [facility] [address] [place] [address] Dr. Kyle JacobsenUAL DIFF REQNONormalThe [facility] HospitalComment on above: Performed By: #### CBC #### [facility] [address] [address] [address] Kyle Christian (RBC) [Entitic mass]29.7 twGehwfj63.9-34.0The [facility] HospitalComment on above:Performed By: #### CBC #### [facility] [address] [place] [address] Dr. Kyle Christian (RBC) [Mass/Vol]33.6 g/bWQlqomz46.9-35.2The [facility] HospitalComment on above:Performed By: #### CBC #### [facility] [address] [place] [address] Dr. Kyle Christian (RBC) [Entitic vol]88.2 gEPkhoxd20.0-94.0The [facility] HospitalComment on above:Performed By: #### CBC #### [facility] [address] [place] [address] Dr. Kyle Maddox #1.3 103/ulCritically high0.3-0.8The [facility] Comment on above:Performed By: #### CBC #### [facility] [address] [place] [address] Dr. Kyle Hicksocytes/100 WBC (Bld)19.3 %Critically high1.7-12.0The [facility] HospitalComment on above:Performed By: #### CBC #### [facility] [address] [place] [address] Dr. Kyle Amaral #2.6 103/ulNormal1.4-6.5The [facility] HospitalComment on above:Performed By: #### CBC #### [facility] [address] [place] [address] Dr. Kyle Ronutrophils/100 WBC (Bld)39.4 %Critically low43.0-75.0The [facility] HospitalComment on above:Performed By: #### CBC #### [facility] [address] [place] [address] Dr. Kyle Seguralet mean volume (Bld) [Entitic vol]9.5 fLNormal9.5-13.5The [facility] HospitalComment on above:Performed By: #### CBC #### [facility] [address] [place] [address] Dr. Kyle CamachoT287 103/drLqzvum694-580Lad [facility] HospitalComment on above: Performed By: #### CBC #### [facility] [address] [place] [address] Dr. Kyle AdamsonRBC5.02 106/ulNormal4.70-6.10The [facility] HospitalComment on above:Performed By: #### CBC #### [facility] [address] [place] [address] Dr. Kyle AdamsonWBC6.5 103/ulNormal4.0-11.0The [facility] HospitalComment on above: Performed By: #### CBC #### [facility] [address] [place] [address] Dr. Kyle AdamsonPROF CHEM 8 (BAS METB)on 80-82-2722Ghcvn gap [Moles/Vol]12.4 mmol/LNormalAcmc Healthcare System GlenbeighComment on above:Performed By: #### BMP #### [facility] [address] [place] [address] Dr. Kyle AdamsonCalcium [Mass/Vol]8.6 mg/dLNormal8.5-10.1[facility] Comment on above:Performed By: #### BMP #### [facility] [address] [place] [address] Dr. Kyle AdamsonChloride [Moles/Vol]105 mmol/RQfaoud21-188Jzy [facility] Comment on above:Performed By: #### BMP #### [facility] [address] [place] [address] Dr. Kyle AdamsonCO2 [Moles/Vol]24.8 mmol/VGuzhns17.0-32.0The [facility] Comment on above:Performed By: #### BMP #### [facility] [address] [place] [address] Dr. Yilan ChangCreatinine [Mass/Vol]1.30 mg/dLNormal0.70-1.30The [facility] HospitalComment on above:Performed By: #### BMP #### [facility] [address] [place] [address] Dr. Kyle HoltGFR-AF GAMBIAN>60Normal>=60The [facility] HospitalComment on above:Performed By: #### BMP #### [facility] [address] [place] [address] Dr. Kyle HoltGFR-NON AF TMZJJAPH91 mL/min/1.40w5Eoxkibjxwq low>=60The [facility] HospitalComment on above:Performed By: #### BMP #### [facility] [address] [place] [address] Dr. Kyle AdamsonGlucose [Mass/Vol]109 mg/dLCritically xbuw92-300Bzd [facility] HospitalComment on above:Performed By: #### BMP #### [facility] [address] [place] [address] Dr. Kyle AdamsonPotassium [Moles/Vol]4.2 mmol/LNormal3.5-5.1[facility] Comment on above:Performed By: #### BMP #### [facility] [address] [place] [address] Dr. Kyle AdamsonSodium [Moles/Vol]138 mmol/OSwwifj873-350Xej [facility] Comment on above:Performed By: #### BMP #### [facility] [address] [place] [address] Dr. Kyle AdamsonUrea nitrogen [Mass/Vol]23.0 mg/dLCritically high7.0-18.0The [facility] HospitalComment on above:Performed By: #### BMP #### [facility] [address] [place] [address] Dr. Kyle Tillman nitrogen/Creatinine [Mass ratio]17.7 mg/mgNormalThe [facility] HospitalComment on above:Performed By: #### BMP #### [facility] [address] [place] [address] Dr. Kyle LedezmaC AUTO DIFFon 76-52-6632XXNQ #0.1 103/ulNormal0.0-0.1The [facility] HospitalComment on above:Performed By: #### CBC #### [facility] [address] [address] [address] Kyle AdamsonBasophils/100 WBC (Bld)1.0 %Normal0.2-2.0The [facility] Comment on above:Performed By: #### CBC #### [facility] [address] [address] [address] Kyle Saravia #0.3 103/ulNormal0.0-0.7The [facility] HospitalComment on above: Performed By: #### CBC #### [facility] [address] [place] [address] Dr. Kyle Holtosinophils/100 WBC (Bld)3.7 %Normal0.9-7.0The [facility] Comment on above:Performed By: #### CBC #### [facility] [address] [place] [address] Dr. Kyle Holtrythrocyte distribution width (RBC) [Ratio]14.6 %Mtciue58.0-15.0 The [facility] HospitalComment on above:Performed By: #### CBC #### [facility] [address] [place] [address] Dr. Kyle AdamsonHematocrit (Bld) [Volume fraction]51.9 %Okbuvn20.0-54.0The [facility] HospitalComment on above:Performed By: #### CBC #### [facility] [address] [place] [address] Dr. Kyle AdamsonHemoglobin (Bld) [Mass/Vol]17.9 g/oBQdknjr63.0-18.0The [facility] HospitalComment on above:Performed By: #### CBC #### [facility] [address] [place] [address] Dr. Kyle Guerrero #0.03 10e3/ulNormal0.00-0.03The [facility] HospitalComment on above:Performed By: #### CBC #### [facility] [address] [address] [address] Kyle Guerrero %0.4 %Normal0.0-0.5The [facility] HospitalComment on above: Performed By: #### CBC #### [facility] [address] [address] [address] Kyle Coleman #2.4 103/ulNormal1.2-3.8The [facility] HospitalComment on above:Performed By: #### CBC #### [facility] [address] [address] [address] Kyle Cabrerahocytes/100 WBC (Bld)33.1 %Wgtofv66.5-60.0The [facility] HospitalComment on above:Performed By: #### CBC #### [facility] [address] [place] [address] Dr. Kyle JacobsenUAL DIFF REQNONormalThe [facility] HospitalComment on above: Performed By: #### CBC #### [facility] [address] [place] [address] Dr. Kyle Christian (RBC) [Entitic mass]30.1 abZmmasa10.9-34.0The [facility] HospitalComment on above:Performed By: #### CBC #### [facility] [address] [place] [address] Dr. Kyle Christian (RBC) [Mass/Vol]34.5 g/zROqokxd30.9-35.2The [facility] HospitalComment on above:Performed By: #### CBC #### [facility] [address] [place] [address] Dr. Kyle Christian (RBC) [Entitic vol]87.4 aJNiuuty13.0-94.0The [facility] HospitalComment on above:Performed By: #### CBC #### [facility] [address] [place] [address] Dr. Kyle Maddox #1.6 103/ulCritically high0.3-0.8The [facility] Comment on above:Performed By: #### CBC #### [facility] [address] [address] [address] Kyle AdamsonMonocytes/100 WBC (Bld)22.1 %Critically high1.7-12.0The [facility] on above:Performed By: #### CBC #### [facility] [address] [place] [address] Dr. Kyle RonUT #2.8 103/ulNormal1.4-6.5The [facility] HospitalComment on above:Performed By: #### CBC #### [facility] [address] [place] [address] Dr. Kyle Ronutrophils/100 WBC (Bld)39.7 %Critically low43.0-75.0The [facility] HospitalComment on above:Performed By: #### CBC #### [facility] [address] [place] [address] Dr. Kyle AdamsonPlatelet mean volume (Bld) [Entitic vol]9.3 fLCritically low 9.5-13.5The [facility] HospitalComment on above:Performed By: #### CBC #### [facility] [address] [place] [address] Dr. Kyle AdamsonPLT282 103/frTgjrce229-635Dlb [facility] HospitalCombeaumont hospital on above: Performed By: #### CBC #### [facility] [address] [place] [address] Dr. Kyle AdamsonRBC5.94 106/ulNormal4.70-6.10The [facility] on above:Performed By: #### CBC #### [facility] [address] [place] [address] Dr. Kyle AdamsonWBC7.1 103/ulNormal4.0-11.0The [facility] on above: Performed By: #### CBC #### [facility] [address] [place] [address] Dr. Kyle AdamsonCovid-19 PCR (CVDTBH)on 04-22-5091JBKT-CoV-2 (COVID-19) RNA RADHA+probe Ql (Unsp spec)Not detectedNormalNOT DETECTEDThe [facility] Comment on above:Result Comment: When diagnostic [...] for this test is supported by the Gear Keeper of Health and Human Service's declaration that [...] longer be used).Performed By: #### CVDTB #### [facility] [address] [place] [address] Dr. Kyle Platt PANEL (PCR)on 76-72-2453Zpppswswvp F 40/41Not detectedNormal NOT DETECTEDThe [facility] HospitalComment on above:Performed By: #### GIPANEL #### [facility] [address] [place] [address] Dr. Kyle AdamsonAstrovirusNot detectedNormalNOT DETECTEDAcmc Healthcare System [facility] Comment on above:Performed By: #### GIPANEL #### [facility] [address] [place] [address] Dr. Kyle Bishop. Diff toxin A/BNot detectedNormalNOT DETECTEDThe [facility] HospitalComment on above:Performed By: #### GIPANEL #### [facility] [address] [place] [address] Dr. Kyle ThomasonpylobacterDetectedCritically abnormalNOT DETECTEDThe [facility] HospitalComment on above:Performed By: #### GIPANEL #### [facility] [address] [place] [address] Dr. Kyle AdamsonCryptosporidiumNot detectedNormalNOT DETECTEDThe [facility] HospitalComment on above:Performed By: #### GIPANEL #### [facility] [address] [address] [address] Kyle Rueda. CayetanensisNot detectedNormalNOT DETECTEDThe [facility] HospitalComment on above:Performed By: #### GIPANEL #### [facility] [address] [address] [address] Kyle George Coli L058Vot ApplicableNormalNot ApplicableThe [facility] HospitalComment on above:Performed By: #### GIPANEL #### [facility] [address] [address] [address] Kyle George histolyticaNot detectedNormalNOT DETECTEDThe [facility] Comment on above:Performed By: #### GIPANEL #### [facility] [address] [address] [address] Kyle HoltAECNcorrina detectedNormalNOT DETECTEDThe [facility] HospitalComment on above:Performed By: #### GIPANEL #### [facility] [address] [address] [address] Kyle HoltIECNcorrina detectedNormalNOT DETECTEDThe [facility] HospitalCom[facility] on above:Performed By: #### GIPANEL #### [facility] [address] [address] [address] Kyle HoltPECLuigi detectedNormalNOT DETECTEDThe [facility] HospitalCom[facility] on above:Performed By: #### GIPANEL #### [facility] [address] [address] [address] Kyle HoltTECNot detectedNormalNOT DETECTEDThe [facility] HospitalComment on above:Performed By: #### GIPANEL #### [facility] [address] [address] [address] Kyle Sargent. LambliaNot detectedNormalNOT DETECTEDThe [facility] Comment on above:Performed By: #### GIPANEL #### [facility] [address] [address] [address] Kyle Hutchison CONTROLSPASSEDNoalThSt. Elizabeth HospitalComment on above:Performed By: #### JONELL #### [facility] [address] [address] [address] Kyle Ngo [facility] HEADERGI [facility] Comment on above:Performed By: #### DENNISE #### [facility] [address] [address] [address] Kyle Velez ECOLIGI PANEL DIARRHEAGENIC E.COLI / SHIGELLAEast [place] Regional HospitalComment on above:Performed By: #### DENNISE #### [facility] [address] [address] [address] Kyle Velez INFOSEE [facility] CenterComment on above: Result Comment: EAEC- Enteroaggregative E. Coli EPEC- Enteropathogenic E. Coli ETEC- Enterotoxigenic E. Coli lt/st STEC- Shigella-like toxin-producing E. Coli stx1/stx2 EIEC- Shigella/Enteroinvasive E. ColiPerformed By: #### DENNISE #### [facility] [address] [place] [address] Dr. Kyle Velez PARASITESGI PANEL [facility] Comment on above:Performed By: #### JONELL #### [facility] [address] [address] [address] Kyle Velez VIRUSGI PANEL The [facility] SystemComment on above:Performed By: #### DENNISE #### [facility] [address] [address] [address] yKle Shipleyrovirus GI/GIINot detectedNormalNOT DETECTEDAcmc Healthcare System GlenbeighComment on above:Performed By: #### DENNISE #### [facility] [address] [address] [address] Kyle Keyes. ShigelloidesNot detectedNormalNOT DETECTEDThe [facility] HospitalComment on above:Performed By: #### DENNISE #### [facility] [address] [address] [address] Yilan ChangRotavirus ANot detectedNormalNOT DETECTEDThe [facility] Comment on above:Performed By: #### GIPANEL #### [facility] [address] [place] [address] Dr. Kyle AdamsonSalmonellaNot detectedNormalNOT DETECTEDThe [facility] Comment on above:Performed By: #### GIPANEL #### [facility] [address] [address] [address] Kyle AdamsonSapovirusNot detectedNormalNOT DETECTEDThe [facility] Comment on above:Performed By: #### GIPANEL #### [facility] [address] [address] [address] Kyle AdamsonSTECNot detectedNormalNOT DETECTEDThe [facility] HospitalComment on above:Performed By: #### GIPANEL #### [facility] [address] [place] [address] Dr. Kyle CarbajalbrioNot detectedNormalNOT DETECTEDThe [facility] HospitalComment on above:Performed By: #### GIPANEL #### [facility] [address] [place] [address] Dr. Kyle Gamezio CholeraNot detectedNormalNOT DETECTEDAcmc Healthcare System Glen[facility] Comment on above:Performed By: #### GIPANEL #### [facility] [address] [place] [address] Dr. Kyle Zafar. EnterocoliticaNot detectedNormalNOT DETECTEDThe [facility] HospitalComment on above:Performed By: #### GIPANEL #### [facility] [address] [place] [address] Dr. Kyle OliveiraF CHEM 8 (BAS METB)on 52-85-1855Mzpoy gap [Moles/Vol]17.9 mmol/LNormalThe [facility] HospitalComment on above:Performed By: #### BMP #### [facility] [address] [place] [address] Dr. Kyle AdamsonCalcium [Mass/Vol]9.6 mg/dLNormal8.5-10.1[facility] Comment on above:Performed By: #### BMP #### [facility] [address] [address] [address] Kyle AdamsonChloride [Moles/Vol]98 mmol/TMzijqy04-078Uhf [facility] Comment on above:Performed By: #### BMP #### [facility] [address] [address] [address] Kyle AdamsonCO2 [Moles/Vol]24.4 mmol/YJbzcmr51.0-32.0The [facility] Comment on above:Performed By: #### BMP #### [facility] [address] [address] [address] Kyle AdamsonCreatinine [Mass/Vol]1.65 mg/dLCritically high0.70-1.30The [facility] HospitalComment on above:Performed By: #### BMP #### [facility] [address] [address] [address] Wright ChangEGFR-AF SRVZBSQO77 mL/min/1.34c5Kdfneomuko low>=60The [facility] HospitalComment on above:Performed By: #### BMP #### [facility] [address] [address] [address] Kyle HoltGFR-NON AF MGTBPXRK33 mL/min/1.96f4Ztdlhqtbih low>=60The [facility] HospitalComment on above:Performed By: #### BMP #### [facility] [address] [address] [address] Kyle AdamsonGlucose [Mass/Vol]124 mg/dLCritically pwto72-090Ihc [facility] HospitalComment on above:Performed By: #### BMP #### [facility] [address] [address] [address] Kyle AdamsonPotassium [Moles/Vol]4.3 mmol/LNormal3.5-5.1The [facility] Comment on above:Performed By: #### BMP #### [facility] [address] [address] [address] Kyle AdamsonSodium [Moles/Vol]136 mmol/DMhnkcg032-100Ylk [facility] Comment on above:Performed By: #### BMP #### [facility] [address] [address] [address] Kyle AdamsonUrea nitrogen [Mass/Vol]31.0 mg/dLCritically high7.0-18.0The [facility] on above:Performed By: #### BMP #### [facility] [address] [place] [address] Dr. Kyle AdamsonUrea nitrogen/Creatinine [Mass ratio]18.8 mg/mgNoSelect Medical Cleveland Clinic Rehabilitation Hospital, BeachwoodComment on above:Performed By: #### BMP #### [facility] [address] [place] [address] Dr. Kyle AdamsonCT ABD/PELV W CONon 59-71-0924CI ABD/PELV W CONEXAMINATION: CT ABD/PELV W CON, [...] Electronically authenticated by: TERRA GUNTER Date: 2022-05-31 07:13[facility] [place] [facility] HospitalCREATININEon 72-43-3605Jinlqfizoj [Mass/Vol]0.95 mg/dLNormal 0.70-1.30The Joanie HospitalComment on above:Performed By: #### CREA #### [facility] [address] [place], [place] [address] Dr. Kyle HoltGFR-AF GAMBIAN>60Normal>=60The [facility] HospitalComment on above:Performed By: #### CREA #### [facility] [address] [place], [place] [address] Dr. Wright ChangEGFR-NON AF GAMBIAN>60Normal>=60The [facility] HospitalComment on above:Performed By: #### CREA #### [facility] [address] [address] [address] Wright ChangCT Sinus w/o Contrast*on 61-06-6145GN Sinus w/o Contrast*CLINICAL HISTORY: Sinus drainage. No [...] signed by Elda Mills on 02/08/2022 0855NormalNorthern [facility] SpecialistBasic Metabolic Panelon 67-74-5636Fuvyq gap [Moles/Vol]17 mmol/FLpekta05-49Yjpholjf [facility] SpecialistComment on above:Result Comment: Effective 07/30/2019 reference range changed.Performed By: #### BMP #### [facility] [address] [place], [place] [id number] [Mass/Vol]9.6 mg/dLNormal8.6-10.2Northn [facility] SpecialistComment on above:Performed By: #### BMP #### [facility] [address] [place], [place] [id number] [Moles/Vol]103 mmol/NWuamhn62-328Arzpgdck [place] [facility] SpecialistComment on above:Performed By: #### BMP #### [facility] [address] [place], [place] [id number] [Moles/Vol]23 mmol/FAuzngc00-64Dimwurfi [place] [facility] SpecialistComment on above:Performed By: #### BMP #### [facility] [address] [place], [place] [id number] [Mass/Vol]0.9 mg/dLNormal0.7-1.4NoMarietta Memorial Hospital SpecialistComment on above:Performed By: #### BMP #### [facility] [address] [place], [place] [id number] mL/min/1.16b0Xdfavr>60NortPremier Health [facility] Center SpecialistComment on above:Performed By: #### BMP #### [facility] [address] [place], [place] [id number] mL/min/1.69p6Xxygxd>60NortPremier Health [facility] Center SpecialistComment on above:Performed By: #### BMP #### [facility] [address] [place], [place] [id number] [Mass/Vol]113 mg/mIIebc07-77Vgptfhwb [place] [facility] SpecialistComment on above:Result Comment: For FASTING Glucose --- ADA reference ranges: Normal 65-99 mg/dl Prediabetes 100-125 Diabetes >/= 126Performed By: #### BMP #### [facility] [address] [place], [place] [id number] [Moles/Vol]5.0 mmol/LNormal3.5-5.5NoMarietta Memorial Hospital SpecialistComment on above:Result Comment: Specimen is hemolyzed. Results may be affected.Performed By: #### BMP #### [facility] [address] [place], [place] [id number] [Moles/Vol]138 mmol/GUpdflm396-378Ktocohpc [facility] SpecialistComment on above:Performed By: #### BMP #### [facility] [address], [place] [id number] nitrogen [Mass/Vol]14 mg/dLNormal7-25Northern [facility] SpecialistComment on above:Performed By: #### BMP #### [facility] [address] [place], [place] [id number] Vital Signs Date TimeVital SignValuePerforming MbzsigjnzRvnlfbqq05-45-0487 10:55-0400Body udzvjg818.42 cmBenjamin Ball DO Work Phone: [phone] [place], [place] 376[address]10-14-2025 10:55-0400 Body mass index (BMI) [Ratio]35.8 kg/g3Ryurhzqf Ball DO Work Phone: [phone]10-14-2025 10:55-0400 Body zkqcby864.15 kgBenjamin Ball DO Work Phone: [phone] [place], [place] 376[address]10-14-2025 10:55-0400 Diastolic blood mm[Hg]Mark Ball DO Work Phone: [phone] [place], [place] 376[address]10-14-2025 10:55-0400 Heart rate79 /minBenjamin Ball DO Work Phone: [phone] [place], [place] 376[address]10-14-2025 10:55-0400 Respiratory rate12 /minBenjamin Ball DO Work Phone: [phone] [place], [place] 376[address]10-14-2025 10:55-0400 Systolic blood kpxnmooa486 mm[Hg]Mark Ball DO Work Phone: [phone] [place], [place] 376[address]08-20-2025 08:45-0400 Body mass index (BMI) [Ratio]36.41 kg/g1Edpcfy Tez DO Work Phone: [facility] CenterJiqjggksqu21-72-4988 08:45-0400Body swikpd524.19 kgLeanne Tez DO Work Phone: [facility] CenterYgvhevlniz84-36-8963 08:45-0400Diastolic blood vuefmjzv28 mm[Hg]Jen Tez DO Work Phone: [phone]-[facility] CenterAyryxqfptt98-27-6950 08:45-0400Heart rate77 /min Jen Tez DO Work Phone: [phone]-[facility] CenterEdnkeikfvq89-49-9160 08:45-0001DhH6% (BldA) [Mass fraction]95 %Jen Tez DO Work Phone: [phone] [place], [place] [address]Wgertomimu81-68-8684 08:45-0400Systolic blood anjryolz925 mm[Hg]Jen Tze DO Work Phone: [phone] [place], [place] [address]207-08-2025 09:29-0400Body fnfpje174.42 cmBenjamin Ball DO Work Phone: [facility] [place]07-08-2025 09:29-0400 Body mass index (BMI) [Ratio]36.1 kg/w5Fycnumzy Ball DO Work Phone: [facility] [place]07-08-2025 09:29-0400 Body .28 kgBenjamin Ball DO Work Phone: [facility] [place]06-25-2025 09:00-0400 Body mass index (BMI) [Ratio]36.41 kg/c8Tdsfsr Tez DO Work Phone: [phone]-[facility] CenterGrsucdqlor31-49-8346 09:00-0400Body .19 kgLeanne Tez DO Work Phone: [phone] [place], [place] [address]Ekgwudsqfl69-19-3191 09:00-0400Diastolic blood ugqplrct69 mm[Hg]Jen Tez DO Work Phone: [phone]-[facility] HospitalSaint [facility] CenterZamhvzlnnq35-36-8460 09:00-0400Heart rate94 /min Jen Tez DO Work Phone: [phone]-[facility] CenterJkvhutaopy59-05-5881 09:00-6416TjL2% (BldA) [Mass fraction]95 %Jen Tez DO Work Phone: [facility] CenterTflrmcqqzf52-15-2519 09:00-0400Systolic blood cnsuojde569 mm[Hg]Jen Tez DO Work Phone: [facility] CenterSjrdhitxlo52-40-3315 14:01-0400Body eihsib273.42 cmBenjamin Ball DO Work Phone: [facility] [place]06-16-2025 14:01-0400 Body mass index (BMI) [Ratio]36.1 kg/z3Pkiaguln Ball DO Work Phone: [phone] [place]06-16-2025 14:01-0400 Body enlfdodrbym61.2 [degF]Mark Ball DO Work Phone: [phone] [place]06-16-2025 14:01-0400 Body muzepf306.28 kgBenjamin Ball DO Work Phone: [phone] [place]06-16-2025 14:01-0400 Diastolic blood mm[Hg]Mark Ball DO Work Phone: [phone] [place]06-16-2025 14:01-0400 Heart rate83 /minBenjamin Ball DO Work Phone: [phone] [place]06-16-2025 14:01-0400 Systolic blood cioadexv216 mm[Hg]Mark Ball DO Work Phone: [phone] [place]04-11-2025 09:15-0400 Body .4 cmPaul Biedenbach DO Work Phone: [facility] CenterNzedbrncud07-33-3028 09:15-0400Body mass index (BMI) [Ratio]36.28 kg/m2Paul Biedenbach DO Work Phone: [facility] CenterNocmtlbyjh93-46-7198 09:15-0400Body xhxkym966.74 kgPaul Biedenbach DO Work Phone: [facility] CenterYknnzxmtxb71-60-5376 15:56-0400Body .42 cmKing[facility] [place]2025 15:56-0400Body mass index (BMI) [Ratio]37.3 kg/v6SsjhsqoebKing'S Daughters [facility] Center [place]2025 15:56-0400Body jfzdje663.48 kgKing'S Daughters [facility] Center [place]2025 15:56-0400Diastolic blood hlsoytzc33 mm[Hg][facility] [place]2025 15:56-0400 Heart rate80 /[facility]2025 15:56-0400 Respiratory rate12 /[facility]2025 15:56-0400 Systolic blood idlpwlnt751 mm[Hg][facility] [place]01-16-2025 10:10-0500Body lgajcc650.42 cmKing'S Daughters Medical Center [place]01-16-2025 10:10-0500Body mass index (BMI) [Ratio]36.8 kg/r0WtyyzhmckKing'S Daughters Medical Center [place]01-16-2025 10:10-0500Body vbinth007.6 kgKing'S Daughters Medical Center [place] 08-09-2024 10:10-0500Diastolic blood vuviktse32 mm[Hg][facility] [place]01-16-2025 10:10-0500Heart rate89 /[facility] 08-09-2024 10:10-0500Respiratory rate12 /[facility] 08-09-2024 10:10-0500Systolic blood mm[Hg][facility] [place]05-06-2024 10:57-0400Diastolic blood lwzmlste82 mm[Hg]DO Mark Ball Work Phone: [facility] [place]05-06-2024 10:57-0400 Heart rate75 /minDO Mark Ball Work Phone: [facility] [place]05-06-2024 10:57-0400 Respiratory rate18 /minDO Mark Ball Work Phone: [facility] [place]05-06-2024 10:57-0400 SaO2% (BldA) [Mass fraction]98 %DO Mark Ball Work Phone: [facility] [place]05-06-2024 10:57-0400 Systolic blood yrhohpue771 mm[Hg]DO Mark Ball Work Phone: [facility] [place]05-06-2024 09:16-0400 Body rulkfv887.42 cmDO Mark Ball Work Phone: [facility] [place]05-06-2024 09:16-0400 Body orycgb624.56 kgDO Mark Ball Work Phone: [facility] [place]10-23-2023 14:45-0400 Body ibisyy243.42 cmMichael Blank Other [employer] Other 10-23-2023 14:45-0400Body mass index (BMI) [Ratio] 36.15 kg/e1Zynqttu Blank Other [employer] Other 10-23-2023 14:45-0400Body gvzxwhsyrna25.9 [degF] Mulugeta Bella Other [employer] Other 10-23-2023 14:45-0400Body eiwjyn624.29 kgMichael Blank Other [employer] Other 10-23-2023 14:45-0400Diastolic blood ugopdpfl74 mm[Hg] Mulugeta Bella Other [employer] Other 10-23-2023 14:45-0400Systolic blood bannvcqi235 mm[Hg] Mulugeta Bella Other [employer] Other 10-20-2023 10:30-0400Body omfuvy684.42 cmBenjamin Ball Other [employer] Other 10-20-2023 10:30-0400Body mass index (BMI) [Ratio] 36.62 kg/d3Buzlqbyo Ball Other [employer] Other 10-20-2023 10:30-0400Body qfdmmu697.92 kgBenjamin Ball Other [employer] Other 10-20-2023 10:30-0400Diastolic blood tjuqgxef34 mm[Hg] Mark Ball Other [employer] Other 10-20-2023 10:30-0400Respiratory rate12 /minBenjamin Ball Other [employer] Other 10-20-2023 10:30-0400Systolic blood dtmermwx334 mm[Hg] Mark Ball Other [employer] Other 03-10-2023 11:30-0500Body kkhxgi213.42 cmBenjamin Ball Other [employer] Other 03-10-2023 11:30-0500Body mass index (BMI) [Ratio] 36.15 kg/b1Ripblpxh Ball Other [employer] Other 03-10-2023 11:30-0500Body iolnjd772.29 kgBenjamin Ball Other [employer] Other 03-10-2023 11:30-0500Diastolic blood qbnhklan23 mm[Hg] Mark Ball Other [employer] Other 03-10-2023 11:30-0500Systolic blood mm[Hg] Mark Ball Other [employer] Other 09-27-2022 10:45-0400Body sqobly539.42 cmCameron Wany Other [employer] Other 09-27-2022 10:45-0400Body mass index (BMI) [Ratio] 36.28 kg/d2Cnygwfs Ditty Other [employer] Other 09-27-2022 10:45-0400Body .74 kgCameroeddi Ditty Other [employer] Other 09-27-2022 10:45-0400Diastolic blood bxxtlexj888 mm[Hg]Axel Syedtty Other [employer] Other 09-27-2022 10:45-0400Systolic blood mm[Hg] Axel Syedtty Other [employer] Other 07-20-2022 17:30-0400Body btwnli545.42 cmDavid Hykes Other [employer] Other 07-20-2022 17:30-0400Body mass index (BMI) [Ratio] 35.09 kg/t7Lyfbu Hykes Other [employer] Other 07-20-2022 17:30-0400Body .66 kgDavid Hykes Other [employer] Other Encounters Encounter DateEncounter TypeCare ProviderFacilityStart: 05-07-2025 End: 24-72-8433dyqtnxpmxwZbqetgfx Ball DO Work Phone: [facility] Work Phone: Start: 05-07-2025 End: 93-15-3988Onffsbv encounter procedureBeirwin Wheatley [facility] Work Phone: Start: 05-07-2025 End: 50-27-5552Fzffifa encounter statusBeirwin Wheatley [facility] Centertart: 03-13-2025 End: 77-80-2713Oztxtt flowsHiren Shanks Tez DO Work Phone: [facility] FNR PULMStart: 03-13-2025 End: 36-59-3640Btrrgr flowsheetLesamanthae Rimma Tez DO Work Phone: [facility] FNR PULMStart: 03-13-2025 End: 42-21-7561Pposru outpatient visit 25 minutesLevivek Shanks Tez DO Work Phone: [facility] FNR PULMComment on above:Chronic obstructive pulmonary disease, unspecified COPD type (HCC) (Primary Dx); Cigarette smoker; HypersomnolenceStart: 01-29-2025 End: 73-06-7867xwttuvnmuxZpsjjdbg Ball Work Phone: [facility] Work Phone: Start: 01-29-2025 End: 54-64-0340Knhvckw encounter procedureAditya Hickman [facility] Work Phone: Start: 01-16-2025 End: 49-63-3134Krlrix flowsHiren Shanks Tez DO Work Phone: [facility] FNR PULMStart: 01-16-2025 End: 79-58-3945Qwwqkm flowsheetLeanne Rimma Tez DO Work Phone: [facility] FNR PULMStart: 01-16-2025 End: 79-26-4428Wdazfk outpatient new 45 minutesLevivek Shanks Tez DO Work Phone: [facility] FNR PULMComment on above:Chronic obstructive pulmonary disease, unspecified COPD type (HCC) (Primary Dx); Cigarette smokerStart: 01-16-2025 End: 95-54-1770ufaescqrscNEGSTR K STRACKNot AvailableStart: 01-07-2025 End: 13-68-8664Lownyqi encounter statusLevivek Reagan DO Work Phone: [facility] HealthcareStart: 01-07-2025 End: 02-73-7467Rfqjzma encounter procedureMulugeta Bella MD-[facility] Work Phone: Start: 46-92-3808Iky-patient / Non-visitOutside Provider-[facility] Work Phone: Start: 12-25-2024 End: 28-86-9804Agclvadarrius Toro MD Work Phone: [facility] SWS DERMStart: 12-25-2024 End: 31-14-4169Gypnbn flowsheetEmxenia Toro MD Work Phone: [facility] SWS DERMStart: 12-25-2024 End: 11-94-2562Bufplr outpatient visit 25 minutesEmily Rama Toro MD Work Phone: [facility] SWS DERMComment on above:Tinea manuum (Primary Dx); Skin tag; Neoplasm of unspecified behavior of bone, soft tissue, and skin; Actinic keratosisStart: 12-25-2024 End: 33-49-1114ivzdfiwvwwUBUZU A PETITTINot AvailableStart: 12-18-2024 End: 68-36-9501Lsmkozuxe encounterBenjamin E Ball DO Work Phone: [facility] FNR FMStart: 84-11-5980kfqhepxlmgOpaisrmdnC[facility] Work Phone: Start: 23-35-4316Jps-patient / Non-visitFirconneaut lakes [facility] Work Phone: Start: 11-02-2024 End: 11-66-3023Aiookc Luis Cardona DO Work Phone: [facility] ENT SANDUSKYStart: 11-02-2024 End: 37-25-6473Fnpijm flowsheetPaul S Biedenbach DO Work Phone: [facility] SANDUSKYStart: 11-02-2024 End: 66-04-4986nbqxubuvkvZDZD S BIEDENBACHNot AvailableStart: 11-02-2024 End: 02-81-8218Slgupr outpatient visit 25 minutesPaul S Biedenbach DO Work Phone: [facility] SANDUSKYComment on above:Chronic cough (Primary Dx); Chronic rhinitis; Tobacco abuse; Laryngopharyngeal reflux (LPR)Start: 65-33-1582Unh-patient / Non-visitMartin General Hospital Physician GroupGr[facility] Work Phone: Start: 10-17-2024 End: 62-61-9031ssusqnvcvjRwdwkgtvkC[facility] Work Phone: Start: 10-17-2024 End: 22-32-3910Wzglmqf encounter procedureMartin General Hospital [facility]ician [facility] Work Phone: Start: 08-14-2024 End: 45-46-5148Urzwhe flowsheetNatalie A Felter SNUFF DRIER-TITLE ONE READING TEACHER Work Phone: noms SWS DERMStart: 08-14-2024 End: 30-98-4482Arxqxo flowsheetNatalie A Felter SNUFF DRIER-TITLE ONE READING TEACHER Work Phone: noms SWS DERMStart: 08-14-2024 End: 98-10-2604Vuhjiy outpatient visit 10 minutesNatalie A Felter SNUFF DRIER-TITLE ONE READING TEACHER Work Phone: noms SWS DERMComment on above:Tinea manusStart: 08-14-2024 End: 10-35-6661tuhqihewudLWXEEEW A FELTERNot AvailableStart: 08-09-2024 End: 90-91-2016Codtpkp encounter procedureMartin General Hospital Phys[facility] GroupOhio[facility] Work Phone: Start: 06-14-2024 End: 33-49-8072Arjyre flowsheetNatalie A Felter SNUFF DRIER-TITLE ONE READING TEACHER Work Phone: NODT [facility] DERMStart: 06-14-2024 End: 89-73-1350Hxogxu flowsheetNatalie A Felter SNUFF DRIER-TITLE ONE READING TEACHER Work Phone: NOYI [facility] DERMStart: 06-14-2024 End: 65-30-8399Bskvacucp encounterNatalie A Felter SNUFF DRIER-TITLE ONE READING TEACHER Work Phone: NOTB [facility] DERMStart: 06-14-2024 End: 64-23-3775Qmjsem outpatient visit 15 minutesNatalie A Felter SNUFF DRIER-TITLE ONE READING TEACHER Work Phone: noms [facility] DERMComment on above:Tinea manus; High risk medication use; Other atopic dermatitisStart: 06-14-2024 End: 19-12-4518zyarjpvtzhZTHHILO A FELTERNot AvailableStart: 05-31-2024 End: 42-27-9017Qvnwdv flowsheetNatalie A Felter SNUFF DRIER-TITLE ONE READING TEACHER Work Phone: NONC [facility] DERMStart: 05-31-2024 End: 45-87-2014Ordccp flowsheetNatalie A Felter SNUFF DRIER-TITLE ONE READING TEACHER Work Phone: NODG [facility] DERMStart: 05-31-2024 End: 41-46-8673Mtjyjy outpatient visit 15 minutesNatalie A Felter SNUFF DRIER-TITLE ONE READING TEACHER Work Phone: NOXZ [facility] DERMComment on above:Tinea manus (Primary Dx); Actinic keratosis; Other atopic dermatitisStart: 05-31-2024 End: 76-32-3742atxdlpmsgjMFXCJIL A FELTERNot AvailableStart: 05-17-2024 End: 12-44-2488Cqcacr flowsheetNatalie A Felter SNUFF DRIER-TITLE ONE READING TEACHER Work Phone: NOFJ [facility] DERMStart: 05-17-2024 End: 55-44-1694Xoudzx flowsheetNatalie A Felter SNUFF DRIER-TITLE ONE READING TEACHER Work Phone: NOM[facility] SWS DERMStart: 05-17-2024 End: 62-72-9791Pefbav outpatient visit 25 minutesNatalie A Felter SNUFF DRIER-TITLE ONE READING TEACHER Work Phone: NOMS SWS DERMComment on above:Tinea manus (Primary Dx); Encounter for removal of suturesStart: 05-17-2024 End: 44-76-0437byupaptuwkOPHOVJO A FELTERNot AvailableStart: 05-07-2024 End: 07-95-4524Gsmrqs flowsheetNatalie A Felter SNUFF DRIER-TITLE ONE READING TEACHER Work Phone: noms SWS DERMStart: 05-07-2024 End: 13-06-4437Teacdy flowsheetNatalie A Felter SNUFF DRIER-TITLE ONE READING TEACHER Work Phone: N[facility]S SWS DERMStart: 05-07-2024 End: 85-13-9398Tbuilic encounter procedureNatalie A Felter SNUFF DRIER-TITLE ONE READING TEACHER Work Phone: NOSU SWS DERMComment on above:Rash and other nonspecific skin eruptionStart: 05-07-2024 End: 46-14-2501qkxsshvjdeNUVTSKI A FELTERNot AvailableStart: 73-98-0631Rqbwwvr encounter statusSouthview Medical Centertart: 11-28-2023 End: 46-79-9736sscubhvpmxMxuignm J DittyFacility:[facility] Medical Centertart: 88-02-0903Gtm-patient / Non-visitDO Mark Wheatley Work Phone: [facility] Work Phone: Start: 11-28-2023 End: 64-53-2661Pptrteuas to same day surgery centerDO Mark Wheatley Work Phone: [facility] Work Phone: Start: 11-28-2023 End: 08-10-0107osnklobxenYQ Mark Wheatley Work Phone: [facility] Work Phone: Start: 08-29-2023 End: 65-25-4957lplksvytnxZxbdwitu Ball Other [employer] Other Start: 92-42-9738Qnlazz outpatient visit 15 minutes Mark BallFPG [facility] ClinicStart: 08-25-2023 End: 28-82-3715decksepfrpBtrgpeqo Ball Other [employer] Other Start: 70-15-0221Qbponb outpatient visit 15 minutes Mark BallFPG [facility] ClinicStart: 05-16-2023 End: 34-81-6673usqigqgfolWmshpwy Blank Other [facility] [employer] Other Start: 39-02-3912Tzroqd outpatient visit 25 minutes Mulugeta BlankFPG Infectious DiseaseStart: 05-13-2023 End: 24-80-5753qohapkxjsyHblzdicv Ball Other [facility] [employer] Other Start: 51-09-0914Uynigt outpatient visit 25 minutes Mark BallFPG [facility] ClinicStart: 05-02-2023 End: 28-90-4931uphzscmwbpHtnzvox Blank Other [facility] [employer] Other Start: 17-92-7972Muwtjyarz encounterMichael BlankFPG Infectious DiseaseStart: 04-28-2023 End: 79-36-1264uppyxotmfqBttotttb Ball Other [facility] [employer] Other Start: 96-23-5131Xvmzshfls encounterBenjamin BallFPG [facility] ClinicStart: 04-20-2023 End: 88-78-9381aznxtlrkwtJtlmlxfx Ball Other [employer] Other Start: 21-61-4803Jamlyvukk encounterBenjamin BallFPG [facility] ClinicStart: 03-31-2023 End: 26-41-2303rfdvgorrqrJvyeapig Ball Other [employer] Other Start: 59-99-7379Srivzuuyu encounterBenjamin BallFPG [facility] ClinicStart: 01-26-2023 End: 85-44-7917nsjkqjbiczZzswpcdz Ball Other [employer] Other Start: 75-20-3041Ogkcfnnrh for general adult medical examination without abnormal findingsBenjamin BallFPG [facility] ClinicStart: 74-59-4909Gvytrdeds encounterBenjamin BallFPG [facility] ClinicStart: 11-29-2022 End: 23-28-6865mwffxkpoczQwgirhaq Ball Other [employer] Other Start: 62-01-5596Mkavmo outpatient visit 15 minutes Mark BallFPG [facility] ClinicStart: 10-01-2022 End: 00-50-2359plqmulgcdeEgmgvjzl Ball Other [employer] Other Start: 01-33-4693Bbfxkw outpatient visit 15 minutes Mark BallFPG [facility] ClinicStart: 08-16-2735Duyzowrdm encounterBenjamin BallFPG [facility] ClinicStart: 09-27-2022 End: 92-02-5917kkfqroosgbFQ MARK BALLFacility:L9Jehzu: 09-24-2022 End: 74-89-1774dsaqmjwtpkTcdgljsu Ball Other [employer] Other Start: 26-05-7162Taqhat outpatient visit 15 minutes Mark BallFPG [facility] ClinicStart: 09-06-2022 End: 10-60-8029vgmrvkbiovUwiojzqt Ball Other [employer] Other Start: 22-24-6407Fagudw outpatient visit 15 minutes Mark BallFPG [facility] ClinicStart: 06-02-2022 End: 53-55-0820roshtuxahjNdsgesx Ditty Other [employer] Other Start: 10-62-9960Vegqwzmbi encounterCameron DittyFPG GastroenterologyStart: 05-28-2022 End: 76-66-5168qvirsbkosgOM DOCTOR MISCFacility:O3Mxrur: 05-27-2022 End: 63-23-8816yhsqtyqokjJsdqzyl Ditty Other [employer] Other Start: 80-38-8089Agecgydmo encounterCameron DittyFPG GastroenterologyStart: 05-24-2022 End: 75-89-1348bpytshzffxYizjnbp Ditty Other [employer] Other Start: 58-15-9044Dtycofdqu encounterCameron DittyFPG GastroenterologyStart: 05-10-2022 End: 72-87-3907fnulkooxfoGokloon Ditty Other [employer] Other Start: 07-51-4061Riumpxsjn encounterCameron DittyFPG GastroenterologyStart: 04-26-2022 End: 45-15-4331konowbcnknSdufcdz Ditty Other [employer] Other Start: 14-92-8115Beyqspwub encounterCameron DittyFPG GastroenterologyStart: 04-20-2022 End: 08-91-0647temwgmjoldWdipspi Ditty Other [employer] Other Start: 67-59-9687Foywkwq encounter procedureCameron DittyFPG GastroenterologyStart: 03-18-2022 End: 28-73-9813wyuytogvdtNuagtxj Ditty Other [employer] Other Start: 34-02-1626Zsugefejr encounterCameron DittyFPG GastroenterologyStart: 03-01-2022 End: 50-13-0413cjjpoeeujyXnsed Hykes Other [employer] Other Start: 54-86-4066Ggkoukato encounterDavid HykesFPG GastroenterologyStart: 02-22-2022 End: 95-88-1999rvbtjyfauzEeyml Hykes Other [employer] Other Start: 42-13-4035Dtdwvqhnh encounterDavid HykesFPG GastroenterologyStart: 02-10-2022 End: 41-60-9034oqdyuvywlqHiokz Hykes Other [employer] Other Start: 84-04-0015Hfdrol outpatient visit 25 minutes Terra Zhou GastroenterologyStart: 62-15-6542Odozxiwdi for other preprocedural examinationDR STERLING [facility]Start: 12-01-2021 End: 81-26-9526detvyimtpzFN MARK WHEATLEYFacility:W3Jugsw: 12-01-2021 End: 45-48-6453Vrlzgmbsd for other preprocedural examinationDR MARK WHEATLEY Facility:E1Zbept: 34-93-3340Sythh health examinationBenkailashsmiley Wheatley Other [place] [employer] Other Procedures DateProcedureProcedure DetailPerforming ClinicianStart: 22-06-7151CUDNKQPMHRY SKIN LESIONEmily Rama Toro MD Work Phone: Start: 27-62-6915WNTA / NAIL BIOPSYEmily Rama Toro MD Work Phone: Start: 93-61-9251MGEDNBXYGOA SKIN LESIONNatalie A Shawn SNUFF DRIER-TITLE ONE READING TEACHER Work Phone: Start: 05-07-2024 End: 75-23-8149HRHU / NAIL BIOPSYNatalie A Shawn SNUFF DRIER-TITLE ONE READING TEACHER Work Phone: Start: 32-40-2220NrnublsaevxVL Mark Wheatley Work Phone: Start: 20-01-8206Fyhpfly examination of patient Mark Wheatley Other Start: 81-23-8902Jpqhperu mellitus screeningBensteven Wheatley Other Start: 03-51-5128Ggkmurzevlywbq screeningMark Wheatley Other Start: 02-69-8085Gzrvqjldw for malignant neoplasm of colonMark Wheatley Other Start: 63-15-3012Hwqmvbzlv for malignant neoplasm of prostateMark Wheatley Other Depression screeningBensteven Wheatley Other Screening for malignant neoplasm of prostateMark Wheatley Other Plan of Treatment DateCare ActivityDetailAuthorStart: 68-74-2189Xlcqfrvff for malignant neoplasm of colonNOMS HealthcareStart: 08-15-2025 End: 83-56-0697Bqvbuke encounter procedureNOMS SWS DERMStart: 06-07-2025 End: 65-68-7596Ddpmdzw encounter peontptlr35/14/2025 9:45 AM EST Office Visit [facility] [address] [place] [address] Jen eRagan, DO [address] [place] [address] [facility]OM[facility] FNR PULMStart: 00-54-4159Klavmpedl vaccinationNOMS HealthcareStart: 03-13-2025 End: 79-33-9882Qvhulcz encounter procedureNOMS FNR PULMComment on above:Arrived Start: 02-11-2025 End: 58-88-2038Rnuwdrz encounter zrvrnkkyb36/21/2025 9:15 AM EDT Office Visit [facility] [place] [address] [place] [phone] Sterling Cardona DO [address] [place] [address] [facility] ENT SANDUSKYStart: 01-16-2025 End: 69-10-3907Cpldjmy encounter procedureNOMS FNR PULMComment on above:Arrived Start: 12-25-2024 End: 32-91-2233Loqtxqi encounter yyhevedil07/03/2025 11:00 AM EDT Office Visit [facility] [address] [place] [address] Rudolph Toro MD [address] [place] [address] ArrivedNOMS SWS DERMComment on above:ArrivedStart: 35-12-9876Hchavro referralBarberton Citizens Hospital Work Phone: Start: 11-02-2024 End: 01-57-8337Wcfguqrgm function reportPulmonary Function Test Imaging Routine Chronic rhinitis Chronic cough Expected: 11/02/2024 (Approximate), Expires: 11/02/2025[facility] Work Phone: comment on above:Expected: 11/02/2024 (Approximate), Expires: 11/02/2025Start: 08-14-2024 End: 44-90-0571Kouhbsc encounter /21/2025 10:10 AM EST Office Visit [facility] [address] [place] [address] Gena Escobar APRN-BRYSON [address] [place] [address] ArrivedNOOK SWS DERMComment on above: ArrivedStart: 07-11-2024 End: 80-43-1296Xpdgdxt encounter yyteqzweo83/18/2024 9:25 AM EST Office Visit [facility] [address] [place] [address] Gena Escobar, SNUFF DRIER-TITLE ONE READING TEACHER [address] [place] [address] N[facility] SWS DERMStart: 07-05-2024 End: 76-96-6170Vshcvcx aminotransferase [Enzymatic activity/volume] in Serum or PlasmaALT Lab Routine Tinea manus High risk medication use Expected: 07/05/2024 (Approximate), Expires: 06/14/2025[facility] Work Phone: comment on above:Expected: 07/05/2024 (Approximate), Expires: 06/14/2025Start: 07-05-2024 End: 62-22-1086Iyyetzcgi aminotransferase [Enzymatic activity/volume] in Serum or PlasmaAST Lab Routine Tinea manus High risk medication use Expected: 07/05/2024 (Approximate), Expires: 06/14/2025[facility] HealthcareComment on above: Expected: 07/05/2024 (Approximate), Expires: 06/14/2025Start: 06-14-2024 End: 46-26-6140Aefewph encounter procedureNOMS [facility] DERMComment on above:Arrived Start: 05-31-2024 End: 17-95-0795Kjdjwls aminotransferase [Enzymatic activity/volume] in Serum or PlasmaALT Lab Routine Tinea manus Expected: 05/31/2024 (Approximate), Expires: 05/31/2025[facility] Work Phone: comment on above:Expected: 05/31/2024 (Approximate), Expires: 05/31/2025Start: 05-31-2024 End: 58-71-9106Klpaxlfff aminotransferase [Enzymatic activity/volume] in Serum or PlasmaAST Lab Routine Tinea manus Expected: 05/31/2024 (Approximate), Expires: 05/31/2025[facility] HealthcareComment on above:Expected: 05/31/2024 (Approximate), Expires: 05/31/2025Start: 05-31-2024 End: 99-70-1643Xlbkvap encounter procedureNOMS SWS DERMComment on above:Arrived Start: 05-17-2024 End: 88-35-4971Ehanoog encounter procedureNOMS SWS DERMComment on above:Arrived Start: 05-07-2024 End: 55-68-4131Zzpazxk encounter vmcqpksaz23/14/2024 10:25 AM EDT Office Visit [facility] [address] [place] [address] Gena Escobar, SNUFF DRIER-TITLE ONE READING TEACHER [address] [place] [address] ArrivedNOMS SWS DERMComment on above: ArrivedStart: 78-51-3204Mdawrhvoz vaccinationInfluenza Vaccine (#1)[facility] HealthcareStart: 61-22-6887WqfbnevdqSouthview Medical Centertart: 1960 Screening for malignant neoplasm of colonNOMS HealthcareDermatopathology exam Dermatopathology exam Pathology and Cytology Timed Rash and other nonspecific skin eruption ReleaseUpon Ordering for 1 Occurrences starting 05/07/2024[facility] Work Phone: comment on above:Release Upon Ordering for 1 Occurrences starting 05/07/2024ermatopathology examDermatopathology exam Pathology and Cytology Timed Neoplasm of unspecified behavior of bone, soft ti ssue, and skin Release Upon Ordering for 1 Occurrences starting 12/25/2024[facility] Work Phone: comment on above:Release Upon Ordering for 1 Occurrences starting 12/25/2024Patient referralBarberton Citizens Hospital Work Phone: Immunizations Immunization DateImmunizationNotesCare RuvrgmxwHrngqihk57-42-1340Ahyzplmwednv Conjugate Vaccine, 20 valentBensteven Wheatley DO Work Phone: [facility]04-01-2021COVID-19 Vaccine Pfizer - Documentation Purposes OnlyBeirwin Wheatley Other [facility]03-11-2021COVID-19 Vaccine Pfizer - Documentation Purposes OnlyBensteven Wheatley Other [facility] Payers DatePayer CategoryPayerPolicy [id number] [facility] Member Subscriber Plan / Payer (Effective 2021-Present) Name: Matteo Hardy MemberID: [id number] Relation to Subscriber: Spouse Name: EMY HARDY Date of : 1965 (Home) Address: [address] [place] [id number] Payer ID: Not on file Type: Not on file Address: [address] [id number] 2..1.083869.3.57[id number] 2..1.146156.3.57[id number] 2..1.328306.3.57[id number] 2..1.644029.3.57[id number] 2..1.532919.3.57[id number] 2..1.729062.3.57[id number] 2..1.313617.3.57[id number] 2.16.840.1.502905.3.57[id number] 2.16.840.1.151172.3.57[id number] 2.16.840.1.876772.3.57[id number] 2.0.1.338769.3.579.2.153333-34-0754LoykLincoln County Medical [id number] 2.0.1.865599.19Self-paySelf Iys0568puri-[id number]-y65n-[id number] [id number] Social History DateTypeDetailFacilityUnknown if ever smokedPotts Grove [employer] Other Start: 05-26-2023 End: 73-36-6591Nxn Assigned At BirthPotts Grove [employer] Other Start: 89-92-6624Afaybgj smoking status NHISSmoker (finding)[facility]ertart: 16-46-1097Yxh [facility]: 12-16-2022 End: 75-19-7433Twqmnwm smoking status NHISSmokes tobacco dailyNOMS Healthcare History of tobacco useCigarette SmokerNOMS HealthcareHistory of tobacco useCigar SmokerNOMS HealthcareHistory of tobacco usePassive smokerNOMS HealthcareStart: 05-26-2023 End: 43-41-4079Cdwqopsnm beverage intakeCurrent drinker of alcohol (finding)[facility] HealthcareStart: 05-26-2023 End: 21-66-0570Mwbrwinoo beverage intakeNOMS HealthcareStart: 29-55-8859Qyprcbx CommentdailyNOMS HealthcareStart: 80-60-3692Vbssse identityIdentifies as male gender (finding)[facility] HealthcareStart: 06-94-2354Bcjagn orientationHeterosexual (finding)[facility] CenterStart: 10-18-2024 End: 97-10-5756VphMotw (finding)[facility] Goals DatePatient GoalDesired Activity/State Clinical Notes 12-08-2021 to 03-13-2025 Note Date & HlkeJaprSnlruoud42-38-6359 History of Present illness Narrative* Jen Reagan, [...] into each nostril Daily, Disp: , Rfl: Iaosahpnhnc-Kqameiipl-Vwxjmy (Trelegy Ellipta) 100-62.5-25 MCG/ACT aerosol powder , [...] COPD. Jen Reagan DO documented in this encounterDustin Ville [address]Idbueuyhkl40-45-7210 History of Present illness Narrative* Jen Reagan, DO - 01/16/2025 9:00 AM EDT Images from the original note were not included. Matteo Hardy presents today for Evaluation in regards to chronic bronchitis / cough. He was referred by his primary care provider. He is accompanied by his at today's office visit. He had previously been seen by newspaper photographer many years ago for latent TB infection. [...] Administer 1 spray into each nostril Daily Cetawsjxjxo-Awutgvyzx-Boftuz (Trelegy Ellipta) 100-62.5-25 MCG/ACT aerosol powder Inhale [...] COPD. Jen Reagan DO documented in this encounterSaint Francis Medical CenterHcbuxpebre64-55-2405 Evaluation note* Diagnosis Onset Date Resolution Status Admit Date Xerosis of skin acuteJune 2024 1:46pmIrritable bowel syndrome with constipationacuteJuly 2024 9:19am [facility] Work Phone: 1(448) 478-687406-03-2025 History of Present illness Narrative* Rudolph Toro [...] limited to risks of scarring, darker or learning and development officer pigmentary changes, recurrence, incomplete removal and infection. [...] Disease Next Visit: prn documented in this encounterSaint Francis Medical CenterAkipbsyabv88-86-1060 Telephone encounter Note* Telephone Encounter - Jourdan Terence - 12/18/2024 11:55 AM EDT Hi, this is Dub Negra Brewer, I am calling for my aMtteo Brewer. date is 1959. He has an appointment at [facility] on january 16. To see Dr ray was supposed to have got a PFT in [place]. But apparently the machine's been broken. So they were to have transferred everything over to [facility] so he could have it done and I just talked to [facility], they have not received any of that. So I do not know if your office needs to do it or I need to call back to the clinicthat does the pulmonary function testing and dusk and have them Redo it, but like to see if we can get him set up in [facility] to have a pulmonary function test before he sees Dr. Ray appreciate if you could call me back at [phone], thank you. [facility] CenterJwyigjrejt05-01-0339 Miscellaneous Notes* Telephone Encounter - Jourdan Pratt - 12/18/2024 11:55 AM EDT Hi, this is Dub Negra Brewer, I am calling for my Matteo Brewer. date is 1959. He has an appointment at the [facility] on january 16. To see Dr ray was supposed to have got a PFT in [place]. But apparently the machine's been broken. So they were to have transferred everything over to [facility] so he could have it done and I just talked to [facility], they have not received any of that. So I do not know if your office needs to do it or I need to call back to the clinicthat does the pulmonary function testing and dusk and have them Redo it, but like to see if we can get him set up in [facility] to have a pulmonary function test before he sees Dr. Ray appreciate if you could call me back at [phone], thank you. documented in this encounterSaint Francis Medical CenterXxlsfbrckd17-56-2894 Chief complaint+Reason for visit Narrative* Chief Complaint Admit Date Referral Order November 09, 2024 1:[address] Toro January 07, 2025 1 :46pm Left sided abdominal pain January 29, 2025 9:19am Reason for Visit Admit Date Xerosis of skin January 07, 2025 1:46 pm Irritable bowel syndrome with constipati on January 29, 2025 9:19am [facility] Work Phone: 1(143) 793-198004-11-2025 History of Present illness Narrative* Sterling Cardona, [...] meal of the day documented in this encounterSaint Francis Medical CenterKpwjaldpum03-27-4717 Chief complaint+Reason for visit Narrative* Chief Complaint Admit Date groin pain October 17, 2024 3:3 8pm Referral Order November 09, 2024 1:1 1pm Reason for Visit Admit Date Acute diverticulitis October 17, 2024 3: 38pm Allergic rhinitis, seasonal October 17, 2024 3:38pm Irritable bowel syndrome with constipati on October 17, 2024 3:38pm [facility] Work Phone: 1(783) 127-229903-26-2025 Evaluation note* Diagnosis Onset Date Resolution Status Admit Date Acute diverticulitis acuteMarch 2024 3:38pmAllergic rhinitis, seasonalacuteMar 2024 3:38pmIrritable bowel syndrome with constipationacuteW[facility]umed[facility] 20[facility] 3:38pm [facility] Work Phone: 1(195) 999-317501-21-2025 History of Present illness Narrative* Gena Escobar, JARED-TITLE ONE READING TEACHER - 08/14/2024 10:10 AM EST Images from [...] Visit: 1 year documented in this encounterSaint Francis Medical CenterWeeidpqesc61-32-4692 Evaluation note* Diagnosis Onset Date Resolution Status Admit Date Hypertension acuteJanuary 2024 10:05amAcute bronchitis due to other specified organisms noneactiveJanuary 2024 10:05amAcute exacerbation of chronic obstructive airways diseasenoneactiveJanuary 2024 10:05amAcute diverticulitisacute October 17, 2024 3:38pmAllergic rhinitis, seasonalacuteMarch 2024 3:38pm Irritable bowel syndrome with constipationacuteInspira Medical Center Woodburych 2024 3:38pm [facility] Work Phone: 1(600) 995-946711-21-2024 Telephone encounter Note* Telephone Encounter - CONSTANCE Pedraza - 06/14/2024 10:24 AM EST Patient seen today in office. Would like to add Cipro 750mg BID x 10 days since I am questioning ifDoxycycline only cured one of the bacterial growths. Please check interactions [facility] CenterRptbyapolt10-35-7885 Miscellaneous Notes* Telephone Encounter - CONSTANCE Pedraza - 06/14/2024 10:24 AM EST Patient seen today in office. Would like to add Cipro 750mg BID x 10 days since I am questioning ifDoxycycline only cured one of the bacterial growths. Please check interactions documented in this encounterSaint Francis Medical CenterJssezkymqc83-13-0886 History of Present illness Narrative* CONSTANCE Pedraza [...] Visit: 1 month documented in this encounterSaint Francis Medical CenterZdcwhenesg14-28-1942 History of Present illness Narrative* CONSTANCE Pedraza [...] days 2. Actinic keratosis (4) Left Superior Magna, Mid Lower Vermilion Lip (2), Right Superior Magna Erythematous scaly papules. Patient was counseled regarding [...] limited to risks of scarring, darker or learning and development officer pigmentary changes, recurrence, incomplete removal and infection. [...] tenderness Cryotherapy, skin lesion - Left Superior Magna, Mid Lower Vermilion Lip (2), Right Superior Magna 3. Other atopic dermatitis Left Hand - Posterior Scaly erythematous plaques +/- dyspigmentation, lichenification, excoriations. Improved since last visit Continue Protopic as prescribed Next Visit: 2 weeks documented in this encounterSaint Francis Medical CenterZirqdyqzzh30-69-5490 History of Present illness Narrative* CONSTANCE Pedraza [...] Next Visit: 2 weeks documented in this [facility]10-14-2024 History of Present illness Narrative* LEXIE PedrazaBRYSON [...] other nonspecific skin eruption Left Dorsal Hand [place] patches and plaques Vikor tissue culture taken [...] 10 days S/R documented in this encounterSaint [facility] [id number] History and physical note Author Axel Briggs [facility] November 28, 2023 10:09amNote Date/TimeMay 2023 10:10[place] [address] Gastroenterology H&P Signed Patient: Matteo Hardy MR#: [id number] : 1960 Acct:[id number] Age/Sex: 63 / M Adm Date: 4 Loc: Room: Type: [facility] Attending Dr: Axel Briggs MD Copies to: [...] signed by Axel Briggs MD> 11/28/23 1009 [facility] Work Phone: 1(403) 591-479405-06-2024 [facility] [place] Evaluation note* Encounter Date Diagnosis Assessment Notes [...] NS for congestion, Tylenol forpain and fever. [facility] Other 02-01-2024 Evaluation note* Encounter Date Diagnosis Assessment Notes Treatment Notes Treatment Clinical Notes Aug, Acute non-recurrent maxillary si nusitis (ICD-10 - J01.00) Instructed to use Robitussin or Mucinex for cough, saline or Flonase NS for congestion, Tylenol forpain and fever. Aug,Irritable bowel syndrome with constipation (ICD-10 - K58.1)Increase dietary fiber and fluids [facility] Other 10-23-2023 Evaluation note* Encounter Date Diagnosis [...] 2 to 3 weeks after beginning it. [facility] Other 10-20-2023 Evaluation note* Encounter Date Diagnosis [...] index [BMI] 36.0-36.9, adult (ICD-10 - Z68.36) [facility] Other 09-27-2023 Evaluation note* Encounter Date Diagnosis Assessment Notes Treatment Notes Treatment Clinical Notes Mar, Mucopurulent chronic bronchitis (ICD-10 - J41.1) [facility] Other 09-07-2023 Evaluation note* Encounter Date Diagnosis Assessment Notes Treatment Notes Treatment Clinical Notes Mar, Dyspnea on exertion (ICD-10 - R0 6.09) Mar,Tobacco dependence (ICD-10 - F17.200) Mar,ost COVID-19 condition, unspecified (ICD-10 - U09.9) [facility] Other 07-05-2023 Evaluation note* Encounter Date Diagnosis Assessment Notes Treatment Notes Treatment Clinical Notes Jan, Wellness examination (ICD-10 - Z 00.00) [facility] Other 05-08-2023 Evaluation note* Encounter Date Diagnosis Assessment Notes Treatment Notes Treatment Clinical Notes November, GERD (gastroesophageal reflux di sease) (ICD-10 - K21.9) Diet instructions: Smaller portions, avoid eating and laying flat, avoid eating or drinking prior to bedtime. Weight loss. 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 Weight loss. 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 Treatment would be diet, hydration and azithromycin Sep,KI (acute kidney injury) (ICD-10 - N17.9)Hydrate, avoid NSAIDs Sep,ehydration (ICD-10 - E86.0)Hydrate [facility] Other 03-06-2023 Evaluation note* Encounter Date Diagnosis Assessment Notes Treatment Notes Treatment Clinical Notes Sep, Diarrhea, unspecified type (ICD- 10 - R19.7) [facility] Other 03-03-2023 Evaluation note* Encounter Date Diagnosis Assessment Notes Treatment Notes Treatment Clinical Notes Sep, Diarrhea of presumed infectious origin (ICD-10 - R19.7) Diet instructions reviewed. _update on Tuesdaybdominal cramping (ICD-10 - R10.9)Continue Dicyclomine. ER for increased pain, N/V/D [facility] Other 02-13-2023 Evaluation note* Encounter Date Diagnosis [...] to respiratory infections, vascular disease and cancers. [facility] Other 11-03-2022 Evaluation note* Encounter Date Diagnosis Assessment Notes Treatment Notes Treatment Clinical Notes May, Bloating (ICD-10 - R14.0) [facility] Other 10-31-2022 Evaluation note* Encounter Date Diagnosis Assessment Notes Treatment Notes Treatment Clinical Notes Apr, Enteritis (ICD-10 - K52.9) Apr,bdominal pain (ICD-10 - R10.9) [facility] Other 09-27-2022 Evaluation note* Encounter Date Diagnosis Assessment Notes Treatment Notes Treatment Clinical Notes Mar, Bloating (ICD-10 - R14.0) Mar,GERD (gastroesophageal reflux disease) (ICD-10 - K21.9)Increase Nexium to 40mg twice daily Mar,yspepsia (ICD-10 - K30) Mar,onstipation (ICD-10 - K59.00)Start Miralax powder daily. Titration dosing discussed with patient. Mar,hange in stool caliber (ICD-10 - R19.4) Mar,Left sided abdominal pain (ICD-10 - R10.9)Continue Dicyclomine prn [facility] Other 07-20-2022 Evaluation note* Encounter Date Diagnosis Assessment Notes Treatment Notes Treatment Clinical Notes Jan, Left sided abdominal pain (ICD-1 0 - R10.9) Jan,lternating constipation and diarrhea (ICD-10 - R19.8) [facility] Other 05-17-2022 History general Narrative - Reported* Type Description Date Medical History HYPERLIPIDEMIA Medical HistorySTOMACH PROBLEMS SINCE APPENDIX BURSTSurgical Historyappendectomy 1998Surgical Historybenign polpy removed from tongue and vocal cords12/08/2021 [facility] Other 05-17-2022 History general Narrative - Reported* Type Description Date Medical History HYPERLIPIDEMIA Medical HistorySTOMACH PROBLEMS SINCE APPENDIX BURSTSurgical Historyappendectomy 1998Surgical Historybenign polpy removed from tongue and vocal cords12/08/2021 Hospitalization HistorySEE SURGICAL [facility] Other 05-17-2022 History general Narrative - Reported* Type Description Date Medical History HYPERLIPIDEMIA Medical HistorySTOMACH PROBLEMS SINCE APPENDIX BURSTMedical History diverticulitisSurgical Wexvzgddqkjmuziyndu3885Izdneles Historybenign polpy removed from tongue and vocal cords12/08/2021Hospitalization HistorySEE SURGICAL [facility] Other 05-17-2022 History general Narrative - Reported* Type Description Date Medical History HYPERLIPIDEMIA Medical HistorySTOMACH PROBLEMS SINCE APPENDIX BURSTMedical History diverticulitisSurgical Wvkswpykkygnnzkszbc1212Towdfzlw Historybenign polpy removed from tongue and vocal cords2Surgical Historycyst removed from back of tongueHospitalization HistorySEE SURGICAL HX [facility] FoxyP2 Other Evaluation noteNo InformationNortGrand View Health FoxyP2 Other Evaluation noteNo assessment information available [facility] Work Phone: Evaluation note* Diagnosis Rash [...] specific antigen)acuteOctober 2024 10:33amWellness examinationacuteOctober 2024 10:33am [facility] Work Phone: Hospital Discharge instructions Additional [...] years. -Follow up with PCP. -Office number [phone].[facility] Work Phone: Hospital Discharge instructionsAmbulatory Orders* Referral to Pulmonology Location: None Selected [facility] Work Phone: Reason for referral (narrative)No reason for referral information availableFirelands Regional Med Center Work Phone: Reason for visit Narrative* Consultation (Routine) - ClosedSpecialtyDiagnoses / ProceduresReferred By ContactReferred To Contact Pulmonary Disease / Pulmonology Diagnoses Unspecified chronic bronchitis (HCC) Chronic cough Procedures RI UNLISTED EVALUATION AND MANAGEMENT SERVICE [facility] [address] [place] [address] Jen Reagan, DO [address] [place] [address] Phone: tel: fax: Referral IDStatusReasonStart DateExpiration DateVisits RequestedVisits [id number] [facility] Healthcare Summary Purpose Family History Relationship [...] section and content) DATE CREATED AUTHOR 02/12/2022 [facility] [employer] DATE CREATED AUTHOR AUTHOR'S ORGANIZ ATION 10/01/2022 [facility] DATE CREATED AUTHOR AUTHOR'S ORGANIZ ATION 12/04/2023 [facility] DATE CREATED AUTHOR AUTHOR'S ORGANIZ ATION 01/17/2025 [facility] EPIC REASON FOR VISIT (unrecogniz [...] DateEnd Date Mark Wheatley MD [address] [place] [facility] [place] [phone] PCP - GeneralInternal Medicine11/29/22am MemberRelationshipSpecialtyStart Date End Date Mark Wheatley MD [address] [place] [facility] [place] [address] PCP - GeneralInternal Medicine11/29/22am MemberRelationshipSpecialtyStart Date End Date Mark Wheatley MD [address] [place] [facility] [place] [phone] PCP - GeneralInternal Medicine11/29/22am MemberRelationshipSpecialtyStart Date End Date Mark Wheatley MD [address] [place] [facility] [place] [address] PCP - GeneralInternal Medicine11/29/22am MemberRelationshipSpecialtyStart Date End Date Mark Wheatley MD [address] [place] [facility] [place] [phone] PCP - GeneralInternal Medicine11/29/22Team MemberRelationshipSpecialtyStart Date End Date Mark Wheatley MD [address] [place] [facility] [place] [address] PCP - GeneralInternal Medicine11/29/22Team MemberRelationshipSpecialtyStart Date End Date Mark Wheatley MD [address] [place] [facility] [place] [address] PCP - GeneralInternal Medicine11/29/22Team MemberRelationshipSpecialtyStart Date End Date Mark Wheatley MD [address] [place] [facility] [place] [address] PCP - GeneralInternal Medicine11/29/22Team MemberRelationshipSpecialtyStart Date End Date Mrak Wheatley MD [address] [place] [facility] [place] [address] PCP - GeneralInternal Medicine11/29/22Team MemberRelationshipSpecialtyStart Date End Date Mark Wheatley MD [address] [place] [facility] [place] [address] PCP - GeneralInternal Medicine11/29/22 Team Status: Inactive Member Role Status Dates Mark Wheatley DO Primary Care Provide r, Attending Provider Active Start: August 09, 2024 End: August 09, 2024 Team Status: Inactive Member Role Status Dates Mark Wheatley DO Primary Care Provide r, Attending Provider Active Start: October 17, 2024 End: October 17, 2024Team MemberRelationshipSpecialtyStart DateEnd Date Mark Wheatley MD [address] [place] [facility] [place] [address] PCP - GeneralInternal Medicine11/29/22Team MemberRelationshipSpecialtyStart Date End [...] DateEnd Date Mark Wheatley DO [address] [place] [address] PCP - GeneralInternal Medicine11/15/24Team MemberRelationshipSpecialtyStart Date End Date Mark Wheatley DO [address] [place] [address] PCP - GeneralInternal Medicine11/15/24Team MemberRelationshipSpecialtyStart Date End Date Mark Wheatley DO [address] [place] [address] PCP - GeneralInternal Medicine11/15/24Team MemberRelationshipSpecialtyStart Date End Date Mark Wheatley DO [address] [place] [address] PCP - GeneralInternal Medicine11/15/24Team MemberRelationshipSpecialtyStart Date End Date Mark Wheatley DO [address] [place] [phone] PCP - GeneralInternal Medicine11/15/24 Team Status: Inactive [...] BE BASED ON THE PRIMARY CLINICAL RECORDS. [facility] [employer] provides no warranty or guarantee of the accuracy or completeness of information in this document.
== END 2025-05-15 09:01 | disposition home or self-care (01) ==
LOC: SLEEP 05-16 08:33
PROVIDERS: PCP Internal Medicine; Visit Provider Internal Medicine
DX: G47.33 Obstructive sleep apnea (adult) (pediatric) (principal)
CPT/HCPCS: 95806

== ENCOUNTER 2025-05-16 08:24 | Outpatient (OUT) | payer BC, SELFPAY ==
--- OUTSIDE RECORDS SUMMARY | 2020-10-23 05:30 | XMS_ITS | Continuity of Care Document ---
Author Organization [facility] Address [address] [place] [address] Phone Care Team Providers Care Box Blank Machine Feeder Name Role Phone Baldemar Bryant Unavailable Unavailable Procedures Procedure Date Pfizer COVID Vaccine Admin Dose 2 COVID-19 Pfizer Pfizer COVID Vaccine Admin Dose 1 COVID-19 Pfizer Advance Directives Directive Yes / No Effective Date File Name No Information Encounters Encounter Description Practice Location Reason(s) For Visit Diagnoses Date Provider Providers Copied on Encounter [facility], [address] [place], [place], [id number], [place] tel:[phone] COVID ECHD No Information Caroi DO Mcdermott. [address] [place], [place], [id number], [place]. tel:[phone] [facility], [address] [place] [address], [id number], tel:[phone] COVID ECHD No Information Visci DO Baldemar. [address] [place], [place], [id number], [place]. tel:[phone] Family History Family Member Type Diagnosis Age At Onset No Information Immunizations Vaccine Date Status Comments Pfizer COVID administered Source: New Imm unization Record Pfizer COVID administered Source: [place] unization Record Payers Payer name Insurance type Covered alliance party ID Authoriza tion(s) [place] [id number] [place] [id number] [place] [id number] Social History Type Description Quantity Date Captured [...]
--- OUTSIDE RECORDS SUMMARY | 2025-05-07 07:50 | XMS_ITS | Continuity of Care Document ---
Author Organization [facility] Address [address] [place] [address] Phone Care Team Providers Care Cashier Assistant Name Role Phone Mark Quick DO Primary Care Provider Mark Quick DO Attending Provider [phone] Care Teams Patient Care Team Team Status: Active Member Role Status Dates Mark Quick DO Primary Care Provider Active Patient Care Team Team Status: Inactive Member Role Status Dates Mark Quick DO Primary Care Provider Active Start: May 07, 2025 End: May 07enjasmiley Quick DOAttending ProviderActiveStart: May 07, 2025 End: May 07, 2025 Chief Complaint and Reason for Visit Chief Complaint Admit Date Wellness May 07, 2025 1 0:33am Reason for Visit Admit Date GERD (gastroesophageal reflux disease) O ctober 2024 10:33am IBS (irritable bowel syndrome) April 242024 10:33am Irritable bowel syndrome with constipati on May 07, 2025 10:33am Obesity May 07, 2025 1 0:33am Screening PSA (prostate specific antigen ) May 07, 2025 10:33am Wellness examination May 07, 2025 10:33am Allergies, Adverse Reactions, Alerts Allergen Type Severity Reaction Last Updated Verified Status Comments cephalexin Allergy Unknown Rash May 07, 2025 10:50am Yes Active moxifloxacinAllergyUnknownitchingOctober 2024 10:50amYesActiveSingulair *ANTIASTHMATIC AND BAllergyUnknownUnknown ReactionMay 2023 12:25pmNoActive Free Text Allergy: Singulair *ANTIASTHMATIC AND BRONCHODILATOR AGENTS; Onset Date: 07/02/2021 Social History Smoking Status Status Start Date End Date Date of Observa tion Smokes tobacco daily (finding) January 07, 2025 2:03pm Observation Status Observation Response Date of Response Legal Sex Male (finding) Sex Assigned At BirthMaleSeptember 1959 Family History Relationship Condition Age at Onset Recorded Date/T nash mother Colorectal cancer Unknown fatherLeukemiaUnknown Problems Active Problems Medical Problem Onset Date Status Comments Nicotine addiction Unknown Active Screening PSA (prostate specific antigen)UnknownActiveGas bloat syndromeUnknown ActiveChronic coughUnknownActiveDyspepsiaUnknownActiveAcute diverticulitis UnknownActiveWellness examinationUnknownActiveHypercholesteremiaUnknownActive Problem List clean-up per request of Phys. EHR CmteHypoxiaUnknownActive Multifocal pneumoniaUnknownActiveGERD (gastroesophageal reflux disease)Unknown ActiveXerosis of skinUnknownActiveIrritable bowel syndrome with constipation UnknownActiveChronic bronchitisUnknownActiveAllergic rhinitis, seasonalUnknown ActiveHypertensionUnknownActiveIBS (irritable bowel syndrome)UnknownActive ObesityUnknownActiveInactive/Resolved Problems Medical Problem Onset Date Status Comments Family history of colon canc er in mother Unknown Resolved Problem List clean-u p per request of Phys. EHR Cmte Medications Medication Status Dose Units Route Directions Qty Days St art Date Stop Date End Date Instructions Adherence Fluticasone Propion-Salmeterol (Wixela Inhub) 250-50 mcg/dose blister with device Discontinued 1 INH INHALATION Every 12 hours 60 30 September 16, 2023 1:00am December 12, 2023 1:27pmSod Picosulf-Mag Ox-Citric Ac (Clenpiq) 10 mg-3.5 gram- 12 gram/175 mL oliowhkvBmyjvvrxirgq928MJOEQffwq16Uqxtl 2023 12:00amJune 2023 1:25pmplease follow instructions provided by Dr. Briggs's office. Polyethylene Glycol 3350 (Miralax) 17 gram/dose tbnnqlVzlfehrdnbmq07RKTEUbjxs times uwulm251367Ohvzw 2023 12:00amMay 2023 12:29pmTake 17 grams in liquid three times a day for constipationTamsulosin 0.4 mg capsuleDiscontinued0 .ROUTE.MJNBVTR07Sgx2023 1:05pmAugust 2023 1:32pmTAKE 1 CAPSULE BY MOUTH 30 MINUTES AFTER EVENING MEAL EVERY NIGHTFluticasone Propion-Salmeterol (Wixela Inhub) 250-50 mcg/dose blister with deviceDiscontinued0.ROUTE.WQMZVHO359 December 12, 2023 1:24pmFebruary 2024 2:12pmINHALE 1 PUFF INTO THE LUNGS TWICE A DAY FOR 30 DAYSLinaclotide (Linzess) 145 mcg bkqfzwuMgthriqteghp666ZWTKM Uswye3758Bzlk 2023 12:00amJuly 2023 8:51amTamsulosin 0.4 mg capsule Discontinued0.ROUTE.FLKMYMD45Hktgax 2023 1:32pmSeptember 2024 10:22amTAKE 1 CAPSULE BY MOUTH 30 MINUTES AFTER EVENING MEAL EVERY NIGHT Lisinopril-Hydrochlorothiazide 10-12.5 mg hkdqedHdnyuyrmtwwt2BQPYSTonam2318 August 06, 2024 2:07pmJanuary 2024 1:43pmLisinopril-Hydrochlorothiazide 10-12.5 mg ewbqhpViottqssciff3ZVZFVKrjht1854Hhdqqur 2024 1:43pmJanuary 2024 1:44pmLisinopril-Hydrochlorothiazide 20-25 mg pdtltpGhywfqkzlgub1ONU ZELccqw7236Ppezeoo 2024 1:00amJanuary 2024 11:16amLisinopril- Hydrochlorothiazide 10-12.5 mg ydltmwBsoipslyocuu2NHCMLKkfhj7938Aqilejn 2024 1:43pmJanuary 2024 1:44pmTelmisartan-Hydrochlorothiazid 40-12.5 mg kxzhbrNkvpxxkxvpad6CPAOZExadn4349Fztfrkz 2024 1:00amMay 2024 7:40am Esomeprazole Magnesium 40 mg capsule,delayed release(DR/EC)Active0.ROUTE.COMPLEX 180January 2024 8:07amTAKE 1 CAPSULE BY MOUTH TWICE A DAY ON AN EMPTY STOMACH FOLLOWED IN 30 MINUTES BY FOOD 90Complies with drug therapyDoxycycline Hyclate 100 mg ysbxszxZolwnjbcnymc972FGBENlgrw pvasm791Ochwygxq 2024 1:00am August 31, 2024 6:27pmDoxycycline Hyclate 100 mg eqcbdotAcjggxlhrspp867RBVO Twice tjywa682Fyioqkfy 2024 6:27pmJune 2024 1:57pmFluticasone Propion-Salmeterol 250-50 mcg/dose blister with deviceDiscontinued0.ROUTE .XFLGSBJ137Whlilelg 2024 2:12pmJune 2024 12:31pmINHALE 1 PUFF INTO THE LUNGS TWICE A DAYTelmisartan-Hydrochlorothiazid 40-12.5 mg tabletActive0 .ROUTE.FXGCSHU59Lqf 2024 7:40amTAKE 1 TABLET BY MOUTH EVERY DAYComplies with drug xckyigoLjyqjcdutji-Kjvpgaxsl-Lgjxqgxf (Trelegy Ellipta) 200-62.5-25 mcg blister with zmejomXteofebxpvth1OAFMMFICTCQFIIvnjp4460Mqtl 2024 12:00amOctober 2024 10:54amLubiprostone (Amitiza) 8 mcg capsule Vflzdfjtjste3SDVHGWxkff2680Fdrr 2024 12:00amAugust 2024 3:22pm Lubiprostone (Amitiza) 8 mcg waybmswZgiemd1FJRETEjwyr3766Kytghy 2024 3:22pmComplies with drug therapyTamsulosin 0.4 mg capsuleActive0.4MGPODaily at uohgige8171Hlajyqohq 2024 10:21amComplies with drug therapyTamsulosin 0.4 mg capsuleDiscontinued0.4MGPODailyMay 2023 12:002023 1:05pm Polyethylene Glycol 3350 (Miralax) 17 gram/dose wqnqlfKnwefdoyxkiw25WICIAgbbt dailyWa2023 12:00amJuly 2023 8:51amTake 17 grams in liquid three times a day for constipationAscorbic Acid (Vitamin C) (Vitamin C) 1,000 mg SvaombFttzyo2KOEHJcligMmmbyqcv 2020 1:00amComplies with drug therapy Loperamide 2 mg RgwmoacCbomcslqhujz6LBIJHgjoc as needed for loose stoolR[facility] 2020 1:00amJune 2023 1:24pmOmeprazole 40 mg Capsule,Delayed Release(Dr/Ec)Yufnmuhnhzna00JFYMGfljqUcherqne 2020 1:00amDecehonorhealth john [facility]. [facility] 2023 9:12amMontelukast 10 mg fxxxkdScdtqqbtgefy24GWYJQtiqrKmifqlds 2020 1:00amMay 2023 12:27pmZinc 50 mg EofrssJynevaolqvre05CKNJHbqzrFrustvjt 2020 1:00amMay 2023 12:28pmAlbuterol 90 mcg/actuation EpgjbtxWijgxmxqxfhv82 MCGINHALATIONTwice dailyRiver Valley [facility]al [facility] 2020 1:00amJune 2023 1:24pm Rosuvastatin 20 mg ViengvNwnzzzxhcbyn06VLXV.every other dayRiver Valley [facility] 2020 1:00amJune 2023 1:25pmCoenzyme Q10 (Co Q-10) 200 mg SmsdxruAvzfklhedkld801 MGPODailyRiver Valley Behavioral Health [facility] 2020 1:00amJune 2023 1:24pmCholecalciferol (Vitamin D3) (Vitamin D3) 25 mcg (1,000 unit) IlbhnbWjavat76KNLDAKsafbGqivjmwh 2020 1:00amComplies with drug therapyIbuprofen-Diphenhydramine Cit (Advil Pm) 200-38 mg RvpynaHlvyewpgnwof0HBDQIAowvs at bedtime as needed for sleepRiver Valley Behavioral Health Hospital 2020 1:00amJune 2023 1:24pmAspirin 81 mg EtrleqbKfcxjs43KKWWXjgznBzxzstwv 2020 1:00amComplies with drug therapyCetirizine-Pseudoephedrine 5-120 mg tablet extended release 12 vbSwmlao0MCXSGOcaneExdb 2023 12:00am FreeTextSi tablet as needed Orally Once a day; Note: Source Status: Taking; Refills: 5; Provider: Abdelrahman Flores EComplies with drug therapyPlecanatide (Trulance) 3 mg rhftznRqokgopsurij0SCUGFfwqe0935Ewgc 2023 12:00amJuly 2023 11:43amCiprofloxacin Hcl 500 mg isfztjNojcbaivgypb748VIZJIesyu cooxu2299 January 16, 2024 12:00amJuly 2023 8:50amFluticasone Propion-Salmeterol (Advair Diskus) 250-50 mcg/dose blister with zpxkcaKhbygjwxbudt5HSNVXMSAPKYDI Twice dailyMay 2023 12:00amJune 2023 1:24pmDoxycycline Hyclate 100 mg grjipjtOrjwljbewpue361HEGXClmjt vpqij923Rhvkybxp 2023 1:00amDecember 2023 9:15amAmoxicillin-Pot Clavulanate 875-125 mg cdmdsfItkczybmlnzq6KUMQF Every 12 ejiwn623Gzryndg 2024 1:00amMarch 2024 4:28pmPrednisone 20 mg icfwpjVvdbhmtnhvsz84MAZMHu Ueptxkou35Uqselxy 2024 1:00amJune 2024 1:57pm1 tab tid w/ food x 3 days, then bid w/ food x 3 days, then qd w/ food x 3 daysAmoxicillin-Pot Clavulanate 875-125 mg wzzoprKnkgdhrpcjye7JUBAGFclhj 12 qjwdc830Gncve 2024 4:28pmJune 2024 1:58pm Tfrglspuvr-Rtskmxte-Mlepqpzccg (Breztri Aerosphere) 160-9-4.8 mcg/actuation HFA aerosol inhalerActiveINHALATIONOctober 2024 12:00amComplies with drug therapyEzetimibe 10 mg ykohdrYgzdos56YSAIYxmtq2876Lreishh 2024 12:00am Complies with drug therapyPhentermine (Adipex-P) 37.5 mg ptwuloKfcsbx23.5MGPO Pyoqg5861Lnvarwc 14th, 2025 12:00ammust administer 30 minutes before or 1-2 hours after breakfastComplies with drug therapyLubiprostone (Amitiza) 8 mcg xcikpvxClmdqwskekpz2TPGNAKroex rmjtp3276Uadi 2023 12:00amOct2023 1:59pmCiprofloxacin Hcl (Cipro) 500 mg klfuupDwhyuebdytih525DMCIDdiwe dgxaq7939 April 24, 2024 12:00amSan [facility] Hospitaler 2023 9:16amEsomeprazole Magnesium 40 mg capsule,delayed release(DR/EC)Tkktpemiqfqi18POBHEmifcIsxkfjli 2023 1:00am August 23, 2024 8:07amAlbuterol Sulfate 2.5 mg /3 mL (0.083 %) solution for nebulizationDiscontinued1.25MGINHALATIONEvery 4 hours as neededhonorhealth j[facility]. [facility] 2023 1:00amJune 2024 1:58pmAlbuterol Sulfate 90 mcg/actuation HFA aerosol ngmawpuTuvdmh2PPXUIPLGCUWNDQR6B as neededCoatesville [facility] 2023 1:00amComplies with drug therapyPrednisone 10 mg gksknrZnoicnyjgmph64AQHVPpdapPfdwozda 2023 1:00amJanuary 2024 11:58amLisinopril-Hydrochlorothiazide 10-12.5 mg tablet Ftglpszchxmy1NIZCPBfpbcEcwxccnd 2023 1:00amJanuary 2024 2:07pm Benzonatate 200 mg fufpprrTqqgofehwgwg080TVOUAzsuk times nhwmz1453Melusvam 13th, 2024 1:00amJune 2024 1:58pmLactobacillus Rhamnosus Gg (Probiotic Digestive Care) 20 billion cell capsuleActiveCELLPOJune 2024 12:00amComplies with drug therapyPolyethylene Glycol 3350 (Miralax) 17 gram powder in nwxelgFrxjkj07 GMPODailyJune 2024 12:00amComplies with drug therapyPlecanatide (Trulance) 3 mg vnfzzxUunzevkmkzyt6VGRXHzcetMtvd 2024 12:00amJuly 2024 9:31am Lubiprostone 8 mcg nintzsiZbyqygfpzvzs2QJUEUVkanaNnnj 2024 12:00amJuly 2024 9:48amLubiprostone 24 mcg sxpndjgFakuvr10NWJCQZqtwf3747Sonu 2024 12:00amComplies with drug therapy Immunizations Immunization Event Date Not Given Reason Dose Number [employer] Lot Number Vaccine Information Statement (VIS) Detail Administration Location COVID-19 mRNA Comirnatjayne (Pfizer) October 02 COVID-19 mRNA Comirnatjayne (Pfizer)October 23neumococcal Conjugate Vaccine, [id number] Vital Signs Vital Reading Result Reference Range Collection Date/Time Height 73 [in_i] May 07, 2025 10:73mySctcot876.15 kgHenry [facility] 2024 10:55amHeart Rate79 /hms37-834Ltwqhor 2024 10:55amRespiratory rate12 /mcz75-68Juwuyti 2024 10:55amBP Izstqtij047 mm[Hg]100-140[facility] 2024 10:55amBP Uzmamwsfk48 mm[Hg]60-100[facility] 2024 10:55amBMI (Body Mass Index)35.8 kg/d6Ocrkzkv 2024 10:55am Advance Directives Advance Directive Response Recorded Date/ Time Advance Directives No May 29, 2021 11:21am Insurance Providers Guarantor Matteo Hardy Address [address] [place] [id number] Info.Home Phone: Payer Policy Id Subscriber's Name Subscriber Id Effectiv e Date Expiration Date [facility] [id number] Encounters Encounter Location(s) Arrival/Admit Date Discharge/Depart Date Provider(s) Departed Physician/Prov ider Office Visit -[facility] May 07, 2025 10:33am May 07, 2025 11:48am Mark Quick , DO Recent Diagnosis Onset Date Admit Date GERD (gastroesophageal reflux disease) Unknown May 07, 2025 10:33am IBS (irritable bowel syndrome) Unknown O ctober 2024 10:33am Irritable bowel syndrome with constipation Unkno wn May 07, 2025 10:33am Obesity Unknown May 07 10:33am Screening PSA (prostate specific antigen) Unknow n May 07, 2025 10:33am Wellness examination Unknown April 10:33am Assessments Diagnosis Onset Date Resolution Status Admit Date GERD (gastroesophageal reflux disease) acuteOctober 2024 10:33amIBS (irritable bowel syndrome)acuteOctober 2024 10:33amIrritable bowel syndrome with constipationacuteOctober 2024 10:33amObesityacuteOctober 2024 10:33amScreening PSA (prostate specific antigen)acuteOctober 2024 10:33amWellness examinationacuteOctober 2024 10:33am Plan of Treatment Author Mark Quick [facility] CenterAuthoredSeptember 2024 7:44amI have instructed this patient on the recommended lifestyle changes, which includes a low fat, high fiber diet along with a regular exercise routine. I have also reviewed the recommended age-appropriate preventive testing for this patient. I have also reviewed the recommended vaccines for their age and risk factors. Instructed on high fiber diet. Previously failed MiralaxElissazess Trialed Amitiza 8mg bid I have instructed this patient to avoid lying flat after eating.?? I have also recommended to avoid eating 2 hours prior to bedtime.?? They were also informed that smaller, frequent meals may be better tolerated. I have discussed additional treatment options for persistent symptoms, which includes: weight loss, H2 blockers and PPI. I have also instructed them to notify the office with any pain or difficulty swallowing. Treatment for SIBO w/ Cipro (? allergy listed for Avelox) I have recommended yearly PSA testing. I have informed him that the PSA can be elevated w/ cancer, infection and enlarged prostates. I have explained to the patient, that If his PSA is elevated, while there are many causes, referral will be recommended to r/o cancer. He would be referred to Urology, who may recommend an MRI, TRUS/bx or possibly continued monitoring. He is agreeable to this plan of action Instructed on high fiber diet and pushing fluids. On trial of Amitiza from GI Failed trial of Miralax Future Tests Future scheduled test information is unavailable Pending Tests Pending diagnostic test information is unavailable Future Visits Future appointment information is unavailable Referrals to Other Providers Referral information is unavailable Future Procedures Future procedure information is unavailable Future Medications Future medication information is unavailable Patient Instructions Patient instructions are unavailable
--- OUTSIDE RECORDS SUMMARY | 2025-05-16 08:28 | XMS_ITS | Clinical Summary ---
Author Organization [employer] Address [facility]-[id number] [address] [place] [address] Care Team Providers Care Ink Printer Name Role Phone Mark Quick DO Primary Care Provider Allergies No known active allergies Medications MedicationSigDispense QuantityRefillsLast FilledStart DateEnd DateStatus rosuvastatin (CRESTOR) 10 mg tablet Take 10 mg by mouth daily.Active ascorbic acid (VITAMIN C) 500 mg tablet Take 500 mg by mouth daily.Active calcium carbonate-vitamin D3 (OSCAL 500 + D) 500 mg(1,250mg) -200 units per tablet Take 1 tablet by mouth 2 (two) times a day with meals.Active esomeprazole (NexIUM) 40 mg capsule Take 40 mg by mouth every morning before breakfast.Active loperamide (IMODIUM) 2 mg capsule Take 2 mg by mouth 4 (four) times a day as needed for diarrhea.Active predniSONE (DELTASONE) 10 mg tablet Indications:Chronic sinusitis, unspecified location6 tabs daily x 2 days, 5 tabs daily x 2 days, 4 tabs x 2 days, 3 tablets x 2 days, 2 tablets x 2 days, and 1 tab x 2 days. 42 tablet 10/23/2020ctive olopatadine (PATADAY) 0.2 % drops Indications:Allergic rhinitis, unspecified seasonality, unspecified trigger ADMINISTER 1 DROP TO BOTH EYES DAILY NEEDED 15 mL ctive montelukast (SINGULAIR) 10 mg tablet Indications:Allergic rhinitis, unspecified seasonality, unspecified triggerTake 1 tablet (10 mg total) by mouth daily. 90 tablet ctive Active Problems ProblemNoted DateDiagnosed DateAllergic ddckvfee07/03/2021hronic sinusitis 10/23/2020Hearing loss10/23/2020 Social History Tobacco UseTypesPacks/DayYears UsedDateSmoking Tobacco: Every DayCigarsSmokeless Tobacco: NeverAlcohol UseStandard Drinks/WeekCommentsYes0 (1 standard drink = 0.6 oz pure alcohol)AUDIT-CAnswerDate RecordedQ1: How often do you have a drink containing alcohol?Not asked10/23/2020Q2: How many drinks containing alcohol do you have on a typical day when you are drinking?7 to 9010/23/2020Q3: How often do you have six or more drinks on one occasion?Not asked10/23/2020HQ-2AnswerDate RecordedTotal Pdqme408hildcareAnswerDate RecordedChildcareUnknown 10/22/2020mploymentAnswerDate FwdoebdmWkquvvgamxXthzkny05/31/2021urpose - Life AnswerDate RecordedPurpose and direction in wonsSmhruug71/31/2021ex and Gender InformationValueDate RecordedSex Assigned at BirthNot on fileLegal SexMale 02/27/2015 11:39 AM EDTGender IdentityNot on fileSexual OrientationNot on file Last Filed Vital Signs Vital SignReadingTime TakenCommentsBlood Dvzrokul602/8804 10:39 AM EDT Pulse--Temperature--Respiratory Rate--Oxygen Saturation--Inhaled Oxygen Concentration--Oijjah833.6 kg (277 lb)10/23/2020 10:39 AM BPFBwekzu208.4 cm (6' 1 )10/23/2020 10:39 AM EDTBody Mass Index36.55010/23/2020 10:39 AM EDT Plan of Treatment Health MaintenanceDue DateLast DoneCommentsDepression Ycafcvbfb66/02/1973Tobacco Inkkzhsme37/02/1973Adult BMI Ypvlxjria65/02/1979DTaP,Tdap and Td Vaccines (1 - Tdap)1980Zoster (Shingles) Vaccine (1 of 2)2011Influenza Vaccine 03/25/2025 Medical Devices Not on file Insurance * Guarantor: Sengstock, Matteo AltonAccount TypeRelation to PatientDate of PhoneBilling AddressPersonal/XnotxnJkau[id number] [address] Care Teams Team MemberRelationshipSpecialtyStart DateEnd Date Mark Quick DO [address] [place] [address] PCP - GeneralInternal Medicine11/11/20
--- OUTSIDE RECORDS SUMMARY | 2025-05-16 08:28 | XMS_ITS | Clinical Summary ---
Author Organization [facility] Address [address] [place] [address] Care Team Providers Care Safety Leader Name Role Phone Mark Quick DO Primary Care Provider [phone] Allergies Active AllergyReactionsCriticalityNoted CuqoRuvajpumXvulzrtbdgLrxcNwh95/01/2024 JrmgfeqxlitxnGluur99/21/2024 Severe body aches QjqdpjzxludhHqtoabh33/22/2024 Reports itching on palms and soles after 1 dose, no rash AimyqxakjgyqXbtrtal96/01/8497ViapbhmzgypGipwPoxasw29/02/2023MontelukastUnknown 12/25/2024 Medications MedicationSigDispense QuantityRefillsLast FilledStart DateEnd DateStatus fluticasone (Flonase) 50 MCG/ACT nasal spray Administer 1 spray into each nostril DailyActive esomeprazole (NexIUM) [address] capsule Take 1 capsule by mouth in the morning. Take before meals.Active aspirin 81 MG EC tablet Take 1 tablet by mouth DailyActive Ascorbic Acid (Vitamin C) 500 MG capsule Take 1 tablet by mouth 1 (one) time each dayActive albuterol HFA 90 mcg/act inhaler Inhale 1 puff every 4 (four) hours if neededActive tamsulosin (Flomax) 0.4 MG 24 hr capsule 3Active gentamicin (Garamycin) 0.1 % ointment Indications:Bacterial infectionApply to hands BID prn 15 g 1105Active telmisartan-hydroCHLOROthiazide (MIcarDIS HCT) 40-12.5 MG tablet Take 1 tablet by mouth Daily5Active Roflumilast (Zoryve) 0.15 % cream Indications:Other atopic dermatitisApply 1 Application topically Daily as needed (apply to hands when flared, hold when clear) 60 g 1105Active Fqeicttwfsn-Fktqgexsg-Xohwgs (Trelegy Ellipta) 100-62.5-25 MCG/ACT aerosol powder Indications:Chronic obstructive pulmonary disease, unspecified COPD type (HCC) Inhale 1 puff Daily 60 each 5Active Xjvudzm-Farktoybcpo-Gydqffyxqa (Breztri Aerosphere) 160-9-4.8 MCG/ACT aerosol Indications:Chronic obstructive pulmonary disease, unspecified COPD type (HCC) Inhale 2 puffs in the morning and 2 puffs before bedtime. 10.7 g 505Active Active Problems ProblemNoted DateDiagnosed DateChronic btygtcoq18/25/2023ongenital anomaly of wahnvb4012/16/20222488Reeogkpzw66/25/2023 Resolved Problems ProblemNoted DateDiagnosed DateResolved DateAcute fperhcbivcmfmw89/16/2025 01/07/2025llergic rhinitis, pmwvetkb60hronic cough01/07/2025 01/07/2025Family history of colon cancer in Overview (01/07/2025): Problem List clean-up per request of Phys. EHR Cmte Gas bloat dghuewcs01GERD (gastroesophageal reflux disease) HypertensionHypoxia Irritable bowel syndrome with mtderlgjazmy76Multifocal bggqlpcfr61Nicotine tzphecyub66Screening PSA (prostate specific antigen)Wellness cpxdhoctihe78/16/2025 01/07/2025hronic xtzpwzcnzc10Hearing loss/ Encounters DateTypeDepartmentCare PnrdVmlzmflqxyj74/20/2025 8:45 AM EDTOffice Visit [facility] [address] [place] [phone] Jen Reagan DO Chronic obstructive pulmonary disease, unspecified COPD type (HCC) (Primary Dx); Cigarette smoker; Sorvumfdbhsstam50/20/2025amboo flowsheet [facility] [address] [place] [address] Jen Reagan DO 03/06/2025Travelfrom Last 3 Months Family History Medical HistoryRelationNameCommentsCancerFatherDiabetesMaternal Grandfather CancerMaternal GrandmotherCancerMotherDiabetesPaternal GrandfatherRelationName StatusCommentsFatherDeceasedMaternal GrandfatherMaternal GrandmotherMotherAlive Paternal Grandfather Social History Tobacco UseTypesPacks/DayYears UsedDateSmoking Tobacco: Every DayCigarettes CigarsPassive Smoke Exposure: Current Tobacco Cessation:Ready to Q uit: No; Counseling Given: Yes Alcohol UseStandard Drinks/WeekCommentsYes3 (1 standard drink = 0.6 oz pure alcohol)dailySex and Gender InformationValueDate RecordedSex Assigned at Male04/06/2024 11:27 PM EDTLegal SbuOfvd1410/06/2022 7:22 PM EDTGender Identity Male04/06/2024 11:27 PM EDTSexual VtekwmzhpnnTjmyhacf33/13/2024 11:27 PM EDT Last Filed Vital Signs Vital SignReadingTime TakenCommentsBlood Iodpqqyy441/7608 8:45 AM EDT Oodvm748103/13/2025 8:45 AM EDTTemperature--Respiratory Rate--Oxygen Cvzbblevku79% 03/13/2025 8:45 AM EDTInhaled Oxygen Concentration--Hwvtki249 kg (276 lb) 03/13/2025 8:45 AM LSKCrbldv492.4 cm (6' 1 )11/02/2024 9:15 AM EDTBody Mass Index36.41011/02/2024 9:15 AM EDT Plan of Treatment DateTypeDepartmentCare Team (Latest Contact Info)Mfeiaunzjbm77/14/2025 9:45 AM ESTOffice Visit [facility] [address] [place] [address] Jen Reagan, [address] [place] [address] 08/15/2025 8:35 AM ESTOffice Visit [facility] [address] [place] [phone] Sulma Escobar, INTEGRATION AIDE-ROUGHING MILL OPERATOR [address] [place] [address] Insurance Care Teams Team MemberRelationshipSpecialtyStart DateEnd Date Mark Quick DO [address] [place] [phone] PCP - GeneralInternal Medicine11/15/24
--- OUTSIDE RECORDS SUMMARY | 2025-05-16 08:28 | XMS_ITS | Clinical Summary ---
Author Organization [facility] Address [address] [facility] [place] [address] Phone Care Team Providers Care Help Desk Manager Name Role Phone Unavailable Primary Care Provider Unavailabl e Social History Tobacco UseTypesPacks/DayYears UsedDateSmoking Tobacco: Never AssessedSex and Gender InformationValueDate RecordedSex Assigned at BirthNot on fileLegal Sex Male06/18/2022 11:37 AM ESTGender IdentityNot on fileSexual OrientationNot on file Plan of Treatment Not on file
--- OUTSIDE RECORDS SUMMARY | 2025-05-16 08:30 | XMS_ITS | CCD ---
Author Organization 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 Name Role Phone Axel Briggs Unavailable Terra Connor Unavailable Mark Wheatley Unavailable DR MARK WHEATLEY Primary Care Unavailable MCMILLAN ., DR RENETTA Agee Attending Unavailable MCMILLAN ., DR RENETTA Agee Admitting Unavailable MCMILLAN ., DR RENETTA Agee Consulting Unavailable KATDANA CUENCA Consulting Unavailable SISTER, SU Consulting Unavailable [facility] DR DIXON Attending Unavailable CORRY, DR FLORES Primary Care Unavailable PUNTA SANTIAGO, DR TERRA Landers Consulting Unavailable MISC, DR DIXON Admitting Unavailable AXEL BRIGGS Consulting Unavailable CORRY, DR FLORES Primary Care Unavailable DULCE, DR ESQUIVEL Attending Unavailable DULCE, DR ESQUIVEL Admitting Unavailable DULCE, DR ESQUIVEL Consulting Unavailable Mulugeta Bella Unavailable DO Mark Wheatlye Primary Care Provider [phone] MD Axel Briggs Attending Provider Axel Briggs Attending Unavailable Axel Briggs Admitting Unavailable Mark Wheatley Primary Care Unavailable Mark Wheatley MD Primary Care Provider Mark Wheatley MD Primary Care Provider Mark Wheatley DO Primary Care Provider GENA ESCOBAR Attending Unavailable STERLING CARDONA Attending Unavailable GENA ESCOBAR Attending Unavailable GENA ESCOBAR Attending Unavailable RUDOLPH TORO Attending Unavailable JEN REAGAN Attending Unavailable GENA ESCOBAR Attending Unavailable GENA ESCOBAR Attending Unavailable Mark Wheatley DO Primary Care Provider Mark Wheatley DO Attending Provider Provider, Outside Attending Provider Unavailable Mulugeta Bella MD Attending Provider Aditya Baird APRN Attending Provider Mark Wheatley DO Primary Care Provider Mark Wheatley DO Attending Provider [phone] Allergies Allergy ClassificationReported Allergen(s)Allergy TypeDate of OnsetReaction(s) Facility (20 sources)moxifloxacinDrug Olndcyl25-67-6092WqejmnlIojveccnmC[facility] (20 sources)CephalexinDrug Mrrjcdm87-81-6584NeizBtdlewggmLakeHealth [facility] (4 sources)Allergies ReconciledPropensity to adverse reactionsSaint [facility]'s Hospital Ox[facility]ene Other (4 sources)patient allergy list reviewed by nurse or physiciaPropensity to adverse ewrxisvxh31-00-5714Eotfchf:[facility] [email or web address] Other (9 sources)Singulair *ANTIASTHMATIC AND BRONCHODILATOR AGENTSPropensity to adverse ngbvfklla53-97-5311EtggzasRjscv Coast Oxigene Other (5 sources)Singulair *ANTIASTHMATIC AND BAllergy to yfklfpdpn10-98-4154EfmjhjwSelect Medical Specialty Hospital - [facility] NorthComment on above:Free Text Allergy: Singulair *ANTIASTHMATIC AND BRONCHODILATOR AGENTS; Onset Date: 07/02/2021 (20 sources)PenicillinsPropensity to adverse fdslumgme15-85-9544UbxiCNPD Healthcare (15 sources)CiprofloxacinDrug Hwiunjb73-24-2949SwmbzIMAO Healthcare (15 sources)levoFLOXacinDrug Xmykbfz56-53-0295QghkrfeBMHQ Healthcare (7 sources)montelukastDrug Ebyjtkg78-25-5441YylimqpAJZJ Healthcare Medications Current Medications MedicationDrug Class(es)DatesSig (Normalized)Sig (Original)[id number] 200 actuat albuterol 0.09 mg/actuat metered dose inhaler (20 sources)beta2-Adrenergic AgonistStart: 29-35-6612yrex 1 puff(s) by inhalation every four hours as neededAlbuterol Sulfate 90 mcg/actuation HFA aerosol inhaler Active 2 PUFF INHALATION Q4H as needed July 05, 2024 1:00am Complies with drug therapyStart: 07-05-2024 End: 67-06-3426dpdt 1.25 mg by inhalation every four hours as neededAlbuterol Sulfate 2.5 mg /3 mL (0.083 %) solution for nebulization Discontinued 1.25 MG INHALATION Every 4 hours as needed July 05, 2024 1:00am January 07, 2025 1:58pmStart: 58-93-1378tinq 90 ug by inhalation twice dailyAlbuterol Active 90 MCG INHALATION Twice daily June 02, 2021 1:00amtake 1 puff(s) by inhalation every four hoursalbuterol HFA 90 mcg/act inhaler Inhale 1 puff every 4 (four) hours if needed Activetake 1 puff(s) by inhalation every four hours as needed Albuterol Sulfate HFA 108 (90 Base) MCG/ACT 1 puff as needed Inhalation every 4 hrs Activetake 1 puff(s) by inhalation every four hours as neededAlbuterol Sulfate HFA 108 (90 Base) MCG/ACT 1 puff as needed Inhalation every 4 hrs Active take 1 puff(s) by inhalation every four hours as neededAlbuterol Sulfate HFA 108 (90 Base) MCG/ACT 1 puff as needed Inhalation every 4 hrs Activeascorbic acid 1000 mg oral tablet (20 sources)Vitamin CStart: 79-22-7253egfj 1 g by mouth once dailyAscorbic Acid (Vitamin C) (Vitamin C) 1,000 mg Tablet Active 1 GM PO Daily June 02, 2021 1:00am Complies with drug therapytake 1 tablet by mouth once dailyAscorbic Acid (Vitamin C) 500 MG capsule Take 1 tablet by mouth 1 (one) time each day Active take 1 tablet by mouth every twenty-four hoursVitamin C 100 MG 1 tablet Orally Once a day ActiveVitamin C Activeaspirin 81 mg oral tablet (20 sources)Platelet Aggregation Inhibitor, Nonsteroidal Anti-inflammatory Drug Start: 56-59-7313lcdk 1 capsule by mouth once dailyAspirin 81 mg Capsule Active 81 MG PO Daily June 02, 2021 1:00am Complies with drug therapytake 1 tablet by mouth once dailyaspirin 81 MG EC tablet Take 1 tablet by mouth Daily Active Aspirin 81 Activebaclofen 20 mg oral tablet (20 sources)gamma-Aminobutyric Acid-ergic AgonistStart: 02-22-2022 End: 54-00-5217ztma 1 tablet by mouth twice daily as neededbaclofen (Lioresal) 20 MG tablet TAKE 1 TABLET BY MOUTH TWICE A DAY NEEDED FOR 30 DAYS 03/23/2022 Cffnfm082 actuat budesonide 0.16 mg/actuat / formoterol fumarate 0.0048 mg/actuat / glycopyrrolate 0.009 mg/actuat metered dose inhaler (1 source)Corticosteroid, beta2-Adrenergic AgonistStart: 05-07-2025 Mvjmdosqhb-Sjlbfwaj-Nmwsjgmgag (Breztri Aerosphere) 160-9-4.8 mcg/actuation HFA aerosol inhaler Active INHALATION May 07, 2025 12:00am Complies with drug qcvnaxm95 hr cetirizine hydrochloride 5 mg / pseudoephedrine hydrochloride 120 mg extended release oral tablet (20 sources)alpha-Adrenergic Agonist, Histamine-1 Receptor AntagonistStart: 91-44-3336rtop 1 tablet by mouth once daily as neededCetirizine-Pseudoephedrine 5-120 mg tablet extended release 12 hr Active 1 TAB PO Daily January 16, 2024 12:00am FreeTextSi tablet as needed Orally Once a day; Note: Source Status: Taking; Refills: 5; Provider: Corry Agee Complies with drug therapyStart: 35-23-2939rtwh 1 tablet by mouth once daily as neededCetirizine-Pseudoephedrine 5-120 mg tablet extended release 12 hr Active 1 TAB PO Daily January 16, 2024 12:00am FreeTextSi tablet as needed Orally Once a day; Note: Source Status: Taking; Refills: 5; Provider: Corry Flores EStart: 09-96-1243ecnn 1 tablet by mouth every twenty-four hoursZyrTEC-D Allergy & Congestion 5-120 MG 1 tablet as needed Orally Once a day for 30 days Activecholecalciferol 0.025 mg oral tablet (8 sources)Vitamin DStart: 85-35-8120oyys 1 tablet by mouth once daily Cholecalciferol (Vitamin D3) (Vitamin D3) 25 mcg (1,000 unit) Tablet Active 25 MCG PO Daily June 02, 2021 1:00am Complies with drug therapyclobetasol propionate 0.5 mg/ml topical cream (12 sources)CorticosteroidStart: 11-23-2022 End: 61-11-6408pdlhhxgllo (Temovate) 0.05 % cream APPLY THIN LAYER TO HANDS & NAILS DAILY MON-FRI,NO WEEKENDS,UNTIL CLEAR REPEAT NEEDED FOR FLARES 11/23/2022 06/14/2024 Discontinued (Ineffective)esomeprazole 40 mg delayed release oral capsule (20 sources)Proton Pump InhibitorStart: 70-93-8294khmz 1 capsule by mouth twice dailyEsomeprazole Magnesium 40 mg capsule,delayed release(DR/EC) Active 0 .ROUTE .COMPLEX 180 August 23, 2024 8:07am TAKE 1 CAPSULE BY MOUTH TWICE A DAY ON AN EMPTY STOMACH FOLLOWED IN 30 MINUTES BY FOOD 90 Complies with drug therapyStart: 32-43-4532Ykqxgjrcuswy Magnesium 40 MG 1 capsule Orally twice daily on empty stomach followed in 30 minutes by food for 30 days November, ActiveStart: 10-19-2017 End: 51-50-7040iwhb 1 capsule by mouth once dailyEsomeprazole Magnesium 40 mg capsule,delayed release(DR/EC) Discontinued 40 MG PO Daily July 05, 2024 1:00am August 23, 2024 8:07amEsomeprazole Magnesium 40 mg capsule,delayed release(DR/EC) (2 sources)Start: 18-03-1790qfxo 1 capsule by mouth twice dailyEsomeprazole Magnesium 40 mg capsule,delayed release(DR/EC) Active 0 .ROUTE .COMPLEX 180 August 23, 2024 8:07am TAKE 1 CAPSULE BY MOUTH TWICE A DAY ON AN EMPTY STOMACH FOLLOWED IN 30 MINUTES BY FOOD 90ezetimibe 10 mg oral tablet (1 source)Dietary Cholesterol Absorption InhibitorStart: 15-18-6795tqrh 1 tablet by mouth once dailyEzetimibe 10 mg tablet Active 10 MG PO Daily May 07, 2025 12:00am Complies with drug therapyfluticasone propionate 0.05 mg/actuat metered dose nasal spray (20 sources)Corticosteroidtake 1 spray(s) nasal route once dailyfluticasone (Flonase) 50 MCG/ACT nasal spray Administer 1 spray into each nostril Daily Activetake 1 spray(s) nasal route in the morningfluticasone (Flonase) 50 MCG/ACT nasal spray Administer 1 spray into each nostril in the morning. Wlfqbv91 actuat fluticasone furoate 0.1 mg/actuat / umeclidinium 0.0625 mg/actuat / vilanterol 0.025 mg/actuat dry powder inhaler (4 sources)Anticholinergic, Corticosteroid, beta2-Adrenergic AgonistStart: 21-27-0745oikd 1 puff(s) by inhalation once wtkmyGixywuekjgo-Joxtzxmnz-Oygurq (Trelegy Ellipta) 100-62.5-25 MCG/ACT aerosol powder Indications: Chronic obstructive pulmonary disease, unspecified COPD type (HCC) Inhale 1 puff Daily 60 each 5 01/16/2025 Activegentamicin 0.001 mg/mg topical ointment (15 sources)Start: 54-48-6096uduspiejcw (Garamycin) 0.1 % ointment Indications: Bacterial infection Apply to hands BID prn 15 g 11 08/28/2024 ActiveStart: 15-64-6862tzlzmyqdzv (Garamycin) 0.1 % ointment Indications: Bacterial infection Apply to left hand BID x 7 days. 15 g 07/26/2024 ActivehydroCHLOROthiazide 12.5 mg / telmisartan 40 mg oral tablet (17 sources)Thiazide Diuretic, Angiotensin 2 Receptor BlockerStart: 12-16-2024 take 1 tablet by mouth once dailyTelmisartan-Hydrochlorothiazid 40-12.5 mg tablet Active 0 .ROUTE .COMPLEX 90 December 16, 2024 7:40am TAKE 1 TABLET BY MOUTH EVERY DAY Complies with drug therapyStart: 08-14-2024 End: 72-30-0247blon 1 tablet by mouth once dailyTelmisartan-Hydrochlorothiazid 40-12.5 mg tablet Discontinued 1 TAB PO Daily August 14, 2024 1:00am December 16, 2024 7:40amlactobacillus rhamnosus gg [id number] unt oral capsule (2 sources)Start: 63-98-4764Ylhzbzhglxnwf Rhamnosus Gg (Probiotic Digestive Care) 20 billion cell capsule Active CELL PO January 07, 2025 12:00am Complies with drug therapylubiprostone 0.008 mg oral capsule (17 sources)Chloride Channel ActivatorStart: 02-06-2025 End: 40-48-8675xqph 1 capsule by mouth once dailyLubiprostone (Amitiza) 8 mcg capsule Active 8 MCG PO Daily 90 90 March 12, 2025 3:22pm Complies with drug therapyStart: 49-78-2383xqox 1 capsule by mouth once dailyLubiprostone 24 mcg capsule Active 24 MCG PO Daily 30 January 29, 2025 12:00am Complies with drug t herapyStart: 01-29-2025 End: 61-18-5277blef 1 capsule by mouth once dailyLubiprostone 8 mcg capsule Discontinued 8 MCG PO Daily January 29, 2025 12:00am January 29, 2025 9:48amStart: 04-08-2024 End: 76-71-5275vyxd 1 capsule by mouth in the morninglubiprostone (Amitiza) 8 MCG capsule Take 8 mcg by mouth in the morning and 8 mcg before bedtime. 06/14/2024 Discontinued (Med list cleanup)Start: 02-17-2024 End: 71-35-2095ihzb 1 capsule by mouth twice dailyLubiprostone (Amitiza) 8 mcg capsule Discontinued 8 MCG PO Twice daily 60 February 17, 2024 12:00am April 24, 2024 1:59pmStart: 02-17-2024 End: 15-00-1544tamu 1 capsule by mouth twice dailyLubiprostone (Amitiza) 8 mcg capsule Discontinued 8 MCG PO Twice daily 60 February 17, 2024 12:00am April 24, 2024 1:59pmomeprazole 40 mg delayed release oral capsule (20 sources)Proton Pump InhibitorStart: 04-26-2022 End: 42-66-2510kuxr 1 capsule by mouth twice daily 30 minutes before mealtime omeprazole (PriLOSEC) [address] capsule TAKE 1 CAPSULE BY MOUTH 30 MINUTES BEFORE MEAL TWICE DAILY FOR 30 DAYS 05/20/2022 06/14/2024 Discontinued (Med list cleanup)Start: 06-02-2021 End: 73-78-7628tewn 1 capsule by mouth once dailyOmeprazole 40 mg Capsule,Delayed Release(Dr/Ec) Discontinued 40 MG PO Daily June 02, 2021 1:00am July 05, 2024 9:12ampaxlovid (300/100) 20 x 150 mg & 10 x 100mg tablet therapy pack (2 sources)Start: 48-10-0972goak 3 tablets by mouth every twelve hoursPaxlovid (300/100) 20 x 150 MG & 10 x 100MG 3 tablets Orally Twice a day for 5 days Aug, Activephentermine hydrochloride 37.5 mg oral tablet (1 source)Sympathomimetic Amine AnorecticStart: 37-95-9629hbxw 1 tablet by mouth once daily 30 minutes after breakfastPhentermine (Adipex-P) 37.5 mg tablet Active 37.5 MG PO Daily May 07, 2025 12:00am mustadminister 30 minutes before or 1-2 hours after breakfast Complies with drug therapy polyethylene glycol 3350 84386 mg powder for oral solution (20 sources)Osmotic LaxativeStart: 02-21-2232Yfzdfikzmdst Glycol 3350 (Miralax) 17 gram powder in packet Active 17 GM PO Daily January 07, 2025 12:00am Complies with drug therapyStart: 11-22-2023 End: 09-33-4124Osalpcucrgsx Glycol 3350 (Miralax) 17 gram/dose powder Discontinued 17 GM PO Twice daily November 24, 2023 12:00am February 17, 2024 8:51am Take 17 grams in liquid three times a day for constipationStart: 08-25-2023 MiraLax 17 GM/SCOOP 1 scoop mixed with 8 ounces of fluid Orally Once a day for 30 days Aug,ctiveStart: 62-71-6864qvmv 17 g by mouth twice daily Polyethylene Glycol 3350 17 GM/SCOOP 17gm Orally twice a day for 30 day(s) Jun, Not-TakingStart: 61-74-4721innb 17 g by mouth once dailyPolyethylene Glycol 3350 17 GM/SCOOP 17gm Orally Once a day for 30 day(s) please dispense largest quantity Mar, ActiveRoflumilast (5 sources)Phosphodiesterase 4 InhibitorStart: 23-53-2202Mbrdeycymlw (Zoryve) 0.15 % cream Indications: Other atopic dermatitis Apply 1 Application topically Daily as needed (apply to hands when flared, hold when clear) 60 g 11 01/07/2025 Activetamsulosin hydrochloride 0.4 mg oral capsule (20 sources)alpha-Adrenergic BlockerStart: 49-08-5373jpek 1 capsule by mouth once daily at bedtimeTamsulosin 0.4 mg capsule Active 0.4 MG PO Daily at bedtime 90 April 12, 2025 10:21am Complies with drug therapyStart: 12-12-2023 End: 17-61-8162Lmujikpgjm 0.4 mg capsule Discontinued 0 .ROUTE .COMPLEX March 07, 2024 1:32pm April 12, 2025 10:22am TAKE 1 CAPSULE BY MOUTH 30 MINUTES AFTER EVENING MEAL EVERY NIGHTStart: 10-12-2022 End: 24-61-9035nxpy 1 capsule by mouth once dailyTamsulosin 0.4 mg capsule Discontinued 0.4 MG PO Daily November 24, 2023 12:00am December 12, 2023 1:05pmStart: 86-50-5562crkprmmhul (Flomax) 0.4 MG 24 hr capsule 10/12/2022 ActiveTamsulosin HCl Not-TakingTamsulosin HCl Activetazarotene 1 mg/ml topical cream (12 sources)RetinoidStart: 11-24-2022 End: 66-81-3733yktvcbypco (Tazorac) 0.1 % cream APPLY TO HANDS DAILY 11/24/2022 06/14/2024 Discontinued (Med list cleanup)terbinafine 250 mg oral tablet (20 sources)Allylamine AntifungalStart: 05-17-2024 End: 41-78-8273evjl 1 tablet by mouth once dailyterbinafine (LamISIL) 250 MG tablet Indications: Tinea manus Take 1 tablet, by mouth, once daily x 30 days 30 tablet 06/14/2024 ActiveVitamin C 100 MG (6 sources)take 1 tablet by mouth once dailyVitamin C 100 MG 1 tablet Orally Once a day ActiveVitamin D (17 sources)Vitamin D ActiveVitamin D 25 MCG (1000 UT) (6 sources)take 1 tablet by mouth once dailyVitamin D 25 MCG (1000 UT) 1 tablet Orally Once a day Active Completed/Discontinued Medications MedicationDrug Class(es)DatesSig (Normalized)Sig (Original)Albuterol 90 mcg/actuation Aerosol (4 sources)Start: 06-02-2021 End: 61-72-4414xzev 90 ug by inhalation twice dailyAlbuterol 90 mcg/actuation Aerosol Discontinued 90 MCG INHALATION Twice daily June 02, 2021 1:00am January 16, 2024 1:24pmamoxicillin 875 mg / clavulanate 125 mg oral tablet (8 sources)Penicillin-class AntibacterialStart: 08-09-2024 End: 76-31-4202tcur 1 tablet by mouth every twelve hoursAmoxicillin-Pot Clavulanate 875-125 mg tablet Discontinued 1 TAB PO Every 12 hours September 4:28pm January 07, 2025 1:58pmbenzonatate 200 mg oral capsule (16 sources)Non-narcotic AntitussiveStart: 07-06-2024 End: 13-46-4170duby 1 capsule by mouth three times dailyBenzonatate 200 mg capsule Discontinued 200 MG PO Three times daily 30 July 06, 2024 1:00am January 07, 2025 1:58pmStart: 62-04-3156dqrq 1 capsule by mouth every eight hoursBenzonatate 200 MG 1 capsule Orally Three times a day for 10 Aug, Not-Takingcefuroxime 500 mg oral tablet (12 sources)Cephalosporin AntibacterialStart: 74-49-5836xjyl 1 tablet by mouth every twelve hoursCefuroxime Axetil 500 MG 1 tablet Orally every 12 hrs for 5 day(s) Aug, Not-Takingciprofloxacin 500 mg oral tablet (8 sources)Quinolone AntimicrobialStart: 04-24-2024 End: 25-57-6006dtsp 1 tablet by mouth twice dailyCiprofloxacin Hcl (Cipro) 500 mg tablet Discontinued 500 MG PO Twice daily 13 05April 24, 2024 12:00am July 05, 2024 9:16amStart: 01-16-2024 End: 33-20-3069csqj 1 tablet by mouth twice dailyCiprofloxacin Hcl 500 mg tablet Discontinued 500 MG PO Twice daily 13 05January 16, 2024 12:00am February 17, 2024 8:50amdicyclomine hydrochloride 20 mg oral tablet (20 sources)AnticholinergicStart: 78-85-5752xxja 1 tablet by mouth at bedtime Dicyclomine HCl 20 MG 1 tablet Orally AC and HS for 10 days Sep, Not-TakingStart: 71-68-0095yfzt 1 tablet by mouth three times daily as needed Dicyclomine HCl 20 MG 1 tablet Orally Three times a day as needed for 30 day(s) May, ActivediphenhydrAMINE citrate 38 mg / ibuprofen 200 mg oral tablet (5 sources)Histamine-1 Receptor Antagonist, Nonsteroidal Anti-inflammatory Drug Start: 06-02-2021 End: 20-92-7018jzsr 1 capsule by mouth once daily at bedtime as needed for sleep Ibuprofen-Diphenhydramine Cit (Advil Pm) 200-38 mg Tablet Discontinued 1 CAP PO Daily at bedtime asneeded for sleep June 02, 2021 1:00am January 16, 2024 1:24pmdoxycycline hyclate 100 mg oral capsule (20 sources)Tetracycline-class DrugStart: 08-31-2024 End: 60-14-0639knfo 1 capsule by mouth twice dailyDoxycycline Hyclate 100 mg capsule Discontinued 100 MG PO Twice daily 14 August 31, 2024 6:27pm January 07, 2025 1:57pmStart: 06-26-2024 End: 51-13-5832hbkw 1 capsule by mouth twice dailyDoxycycline Hyclate 100 mg capsule Discontinued 100 MG PO Twice daily 14 June 26, 2024 1:00am July 05, 2024 9:15amStart: 05-09-2024 End: 39-67-5509axyx 1 capsule by mouth twice dailydoxycycline (Monodox) 100 MG capsule Indications: Bacterial infection Take 1 capsule, by mouth bid,x 10 days 20 capsule 05/09/2024 12/25/2024 Discontinued (Therapy completed)Start: 29-35-6449cmgf 1 capsule by mouth twice dailyDoxycycline Hyclate 100 MG 1 capsule Orally twice daily for 7 days Aug, Jxjfty75 actuat fluticasone propionate 0.25 mg/actuat / salmeterol 0.05 mg/actuat dry powder inhaler (20 sources)Corticosteroid, beta2-Adrenergic AgonistStart: 09-19-2024 End: 94-79-8316pssa 1 puff(s) by inhalation twice dailyFluticasone Propion- Salmeterol 250-50 mcg/dose blister with device Discontinued 0 .ROUTE .COMPLEX 18 0 September 19, 2024 2:12pm January 16, 2025 12:31pm INHALE 1 PUFF INTO THE LUNGS TWICE A DAYStart: 12-12-2023 End: 11-50-2264fjnc 1 puff(s) by inhalation twice dailyFluticasone Propion- Salmeterol (Wixela Inhub) 250-50 mcg/dose blister with device Discontinued 0 .RO ESDRAS .COMPLEX 180 December 12, 2023 1:24pm September 19, 2024 2:12pm INHALE 1 PUFF INTO THE LUNGS TWICE A DAY FOR 30 DAYSStart: 12-12-2023 End: 86-53-7622Rsufdjbnhxf Propion-Salmeterol (Advair Diskus) 250-50 mcg/dose blister with device Discontinued 1 INH INHALATION Twice daily December 12, 2023 12:00am January 16, 2024 1:24pmStart: 09-16-2023 End: 62-52-1435Plaegbrwhfq Propion-Salmeterol (Wixela Inhub) 250-50 mcg/dose blister with device Discontinued 1 INH INHALATION Every 12 hours 60 30 September 16, 2023 1:00am December 12, 2023 1:27pmStart: 04-25-2023 End: 57-33-5852Dlrsmt Diskus 250-50 MCG/ACT aerosol powder 04/25/2023 01/16/2025 DiscontinuedStart: 36-61-9539sdme 1 puff(s) by inhalation twice dailyAdvair Diskus 250-50 MCG/ACT aerosol powder INHALE 1 PUFF INTO THE LUNGS TWICE A DAY FOR 30 DAYS 04/25/2023 ActiveStart: 89-88-0199ubws 1 puff(s) by inhalation twice dailyFluticasone-Salmeterol 250-50 MCG/ACT 1 puff Inhalation Twice a day for 30 days Mar, HlmzqjXgrvsputzgx-Nipjuzfnp-Mjrjdzei (2 sources)Start: 01-16-2025 End: 32-67-2975Sqyysniocao-Umeclidin-Vilanter (Trelegy Ellipta) 200-62.5-25 mcg blister with device Discontinued 1INH INHALATION Daily 60 January 16, 2025 12:00am May 07, 2025 10:54amStart: 01-16-2025 Tnacezgcqnf-Rqxiorghc-Lkdzlkkv (Trelegy Ellipta) 200-62.5-25 mcg blister with device Active 1 INH INHALATION Daily 60 January 16, 2025 12:00am Complies with drug therapyhydroCHLOROthiazide 12.5 mg / lisinopril 10 mg oral tablet (20 sources)Thiazide Diuretic, Angiotensin Converting Enzyme InhibitorStart: 08-07-2024 End: 57-86-5020dmoa 1 tablet by mouth once dailyLisinopril-Hydrochlorothiazide 20-25 mg tablet Discontinued 1 TAB PO Daily August 0751:00am August 14, 2024 11:16amStart: 07-06-2024 End: 41-17-2814urjs 1 tablet by mouth once dailyLisinopril-Hydrochlorothiazide 10-12.5 mg tablet Discontinued 1 TAB PO Daily August 07, 2024 1:43pm August 07, 2024 1:44pmlinaclotide 0.145 mg oral capsule (4 sources)Guanylate Cyclase-C AgonistStart: 01-30-2024 End: 28-21-3485cwwj 1 capsule by mouth once dailyLinaclotide (Linzess) 145 mcg capsule Discontinued 145 MCG PO Daily 30 January 30, 2024 12:00am February 17, 2024 8:51amloperamide hydrochloride 2 mg oral capsule (5 sources)Opioid AgonistStart: 06-02-2021 End: 61-22-4457gzky 1 capsule by mouth once daily as neededLoperamide 2 mg Capsule Discontinued 2 MG PO Daily as needed for loose stool June 02, 2021 1:00am January 16, 2024 1:24pmmontelukast 10 mg oral tablet (5 sources)Leukotriene Receptor AntagonistStart: 06-02-2021 End: 53-10-9267tdiw 1 tablet by mouth once dailyMontelukast 10 mg tablet Discontinued 10 MG PO Daily June 02, 2021 1:00am November 24, 2023 12:27pm plecanatide 3 mg oral tablet (4 sources)Start: 01-07-2025 End: 04-85-4386ccom 1 tablet by mouth once dailyPlecanatide (Trulance) 3 mg tablet Discontinued 3 MG PO Daily January 07, 2025 12:00am January 29, 2025 9:31am Start: 01-16-2024 End: 59-67-7834nrod 1 tablet by mouth once dailyPlecanatide (Trulance) 3 mg tablet Discontinued 3 MG PO Daily January 16, 2024 12:00am January 30, 2024 11:43amPlecanatide (Trulance) 3 mg tablet (2 sources)Start: 01-16-2024 End: 88-41-7752qqoa 1 tablet by mouth once dailyPlecanatide (Trulance) 3 mg tablet Discontinued 3 MG PO Daily January 16, 2024 12:00am January 30, 2024 11:43amPolyethylene Glycol 3350 (Miralax) 17 gram/dose powder (3 sources)Start: 11-22-2023 End: 91-04-4605Yldjmtmptoof Glycol 3350 (Miralax) 17 gram/dose powder Discontinued 17 GM PO Three times daily November 22, 2023 12:00am November 24, 2023 12:29pm Take 17 grams in liquid three times a day for constipation predniSONE 20 mg oral tablet (8 sources)Start: 08-09-2024 End: 88-32-9333Iohkhvuqcq 20 mg tablet Discontinued 20 MG PO As Directed August 09, 2024 1:00am January 07, 2025 1:57pm 1 tab tid w/ food x 3 days, then bid w/ food x 3 days, then qd w/ food x 3 daysStart: 07-05-2024 End: 63-74-4601jxxa 2 tablets by mouth once dailyPrednisone 10 mg tablet Discontinued 20 MG PO Daily July 05, 2024 1:00am August 09, 2024 11 :58amrosuvastatin calcium 20 mg oral tablet (20 sources)HMG-CoA Reductase InhibitorStart: 06-02-2021 End: 31-63-3818hjvf 1 tablet by mouth every other dayRosuvastatin 20 mg Tablet Discontinued 20 MG PO .every other day June 02, 2021 1:00am January 16, 2024 1:25pmtake 1 tablet by mouth in the eveningRosuvastatin Calcium 20 MG TAKE 1 TABLET BY MOUTH IN THE EVENING ActiveCrestor 20MG ActiveSod Picosulf-Mag Ox- Citric Ac (5 sources)Start: 11-22-2023 End: 79-72-6962esrt 1 mL by mouth once dailySod Picosulf-Mag Ox-Citric Ac (Clenpiq) 10 mg-3.5 gram- 12 gram/175 mL solution Discontinued 175 MLPO Daily 07 25November 22, 2023 12:00am January 16, 2024 1:25pm please follow instructions provided byDr. Briggs's office.Start: 11-72-2549erkq 1 mL by mouth once dailySod Picosulf-Mag Ox-Citric Ac (Clenpiq) 10 mg-3.5 gram- 12 gram/175 mL solution Active 175 ML PO Daily 07 25November 22, 2023 12:00am please follow instructions provided by Dr. Briggs's office.tacrolimus 0.001 mg/mg topical ointment (20 sources)Calcineurin Inhibitor ImmunosuppressantStart: 05-17-2024 End: 91-41-0735jhabnduvlt (Protopic) 0.1 % ointment Indications: Encounter for removal of sutures Apply topically 2 (two) times a day 60 g 3 05/17/2024 01/10/2025 Discontinued (Therapy completed)ubidecarenone 200 mg oral capsule (14 sources)Start: 06-02-2021 End: 59-75-5493Femkpwrb Q10 (Co Q-10) 200 mg Capsule Discontinued 200 MG PO Daily June 02, 2021 1:00am January 16, 2024 1:51qsRuB28 200 MG as directed Orally ActiveZinc (20 sources)Start: 06-02-2021 End: 37-82-0581qylf 1 tablet by mouth once dailyZinc 50 mg Tablet Discontinued 50 MG PO Daily June 02, 2021 1:00am November 24, 2023 12:28pmStart: 06-02-2021 End: 54-86-7601qghg 50 mg by mouth once dailyZinc Discontinued 50 MG PO Daily June 02, 2021 1:00am November 24, 2023 12:28pmZinc Not-TakingZinc Active Problems Active Problems Problem ClassificationProblemDateDocumented DateEpisodic/ChronicAbdominal pain (20 sources)Stomach cramps; Translations: [Unspecified abdominal pain]Onset: 01-29-2014 Resolved: 29-65-8624IelrlstkCwmvf and unspecified renal failure (2 sources)Acute kidney failure, unspecified; Translations: [ACUTE KIDNEY FAILURE UNSPECIFIED]Onset: 25-57-5261MhnnzrmnQjoyw bronchitis (20 sources)Acute bronchitis due to other specified organisms; Translations: [Acute bronchitis]Onset: 98-95-6149JwfmgergRjchyom-related disorders (9 sources)Alcohol abuse; Translations: [Alcohol abuse, uncomplicated]Chronic Allergic reactions (4 sources)Atopic dermatitis; Translations: [Other atopic dermatitis]05-31-2024 ChronicChronic obstructive pulmonary disease and bronchiectasis (20 sources)Chronic obstructive pulmonary disease with acute lower respiratory infection; Translations: [Chronic obstructive pulmonary disease with (acute) lower respiratory infection]Onset: 08-04-2018 Resolved: 19-96-0846TlisnihSieeaznmr of lipid metabolism (20 sources)Familial hypercholesterolemia; Translations: [Familial hypercholesterolemia]Onset: 10-58-1917QuopvhxFhtyksg on above:Problem List clean-up per request of Phys. EHR CmteDiverticulosis and diverticulitis (20 sources)Diverticulitis of colon; Translations: [Diverticulitis of intestine, part unspecified, without perforation or abscess without bleeding]Onset: 09-05-2018 Resolved: 936117-28-7616SmrcgpvSsqukhzblh disorders (20 sources)Gastroesophageal reflux disease; Translations: [Gastro-esophageal reflux disease without esophagitis]Onset: 11-15-2014 Resolved: 02-48-7981BpfptpyAcgrwsyfk hypertension (10 sources)Hypertensive disorder; Translations: [Essential (primary) hypertension]Onset: 01-07-2025 Resolved: 376882-11-3898PfuumjlXptft and electrolyte disorders (2 sources)Dehydration; Translations: [DEHYDRATION]Onset: 49-18-2570Vpbvyyhj Genitourinary symptoms and ill-defined conditions (9 sources)Peterson hematuria; Translations: [Gross hematuria]EpisodicHyperplasia of prostate (20 sources)Lower urinary tract symptoms due to benign prostatic hypertrophy; Translations: [Benign prostatic hyperplasia with lower urinary tract symptoms] Onset: 42-39-4304AaalwxjSioaixtaqpvhh and screening for infectious disease (18 sources)Nonspecific tuberculin test reaction ; Translations: [Nonspecific reaction to tuberculin skin test without active tuberculosis]EpisodicIntestinal infection (2 sources)Campylobacter enteritis; Translations: [CAMPYLOBACTER ENTERITIS] Onset: 80-15-4756OmqbygkvWjxwbfg (20 sources)Onychomycosis due to dermatophyte ; Translations: [Dermatophytosis of nail]Onset: 457591-50-3962UiiraozmPbighyhlx of unspecified nature or uncertain behavior (2 sources)Neoplastic disease; Translations: [Neoplasm of unspecified behavior of bone, soft tissue, and skin]45-03-2676ZqafxqbdFqxyteucrzcvjm (9 sources)Osteoarthritis; Translations: [Polyosteoarthritis, unspecified]Onset: 70-89-5648DnmcwfrBmqwo aftercare (1 source)shelter (current) use of aspirin; Translations: [SENIOR CARE CURRENT USE OF ASPIRIN]Onset: 74-75-0155GxobglgjGzyoj aftercare (1 source)Other long chain beamer (current) drug therapy; Translations: [OTH LEGAL ADMINISTRATIVE ASSISTANT CURRENT DRUG THERAPY]Onset: 62-35-1739LgfseqegBxbia aftercare (9 sources)Long-term current use of drug therapy; Translations: [Other long chain beamer (current) drug therapy]EpisodicOther aftercare (2 sources)Removal of sutures done; Translations: [Encounter for removal of sutures]99-33-1034LlcedqveZcqik aftercare (2 sources)Taking high risk medication; Translations: [Other group home (current) drug therapy]31-09-3509EiqznwqzHgdtu and unspecified benign neoplasm (9 sources)Polyp of colon; Translations: [Polyp of colon]EpisodicOther congenital anomalies (20 sources)Congenital anomaly of larynx; 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]Onset: 976414-19-1628RzoqwolDkxgn congenital anomalies (2 sources)Other congenital malformations of larynxChronicOther disorders of stomach and duodenum (20 sources)Indigestion; Translations: [Functional dyspepsia]59-21-2290Lekghnas Other disorders of stomach and duodenum (1 source)Functional dyspepsiaEpisodicOther ear and sense organ disorders (9 sources)Malignant otitis externa; 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, left ear]ChronicOther ear and sense organ disorders (9 sources)Acute contact otitis externa; Translations: [Acute reactive otitis externa, left ear]EpisodicOther ear and sense organ disorders (9 sources)Infective otitis externa; Translations: [Diffuse otitis externa, left ear]EpisodicOther gastrointestinal disorders (20 sources)Irritable bowel syndrome characterized by constipation; Translations: [Irritable bowel syndrome with constipation]Onset: 01-07-2025 Resolved: 589337-08-6205EzupmdtBnqdo gastrointestinal disorders (4 sources)Irritable bowel syndrome with constipation; Translations: [Irritable bowel syndrome]ChronicOther gastrointestinal disorders (3 sources)Irritable bowel syndrome; Translations: [Irritable bowel syndrome without diarrhea]90-34-3143IhgxhcdDabba gastrointestinal disorders (17 sources)Swollen abdomen; Translations: [Abdominal distension (gaseous)] EpisodicOther gastrointestinal disorders (17 sources)Finding of gastrointestinal tract gas; Translations: [Flatulence] EpisodicOther gastrointestinal disorders (17 sources)Diarrhea; Translations: [Diarrhea, unspecified]EpisodicOther gastrointestinal disorders (20 sources)H/O: gastrointestinal disease; Translations: [Personal history of other diseases of the digestive system]EpisodicOther gastrointestinal disorders (20 sources)Constipation; Translations: [Constipation, unspecified]EpisodicOther gastrointestinal disorders (17 sources)Constipation alternates with diarrhea; Translations: [Other specified symptoms and signs involving the digestive system and abdomen]Episodic Other gastrointestinal disorders (1 source)Constipation, unspecifiedEpisodicOther gastrointestinal disorders (1 source)Change in bowel habitEpisodicOther gastrointestinal disorders (1 source)Other specified symptoms and signs involving the digestive system and abdomenEpisodicOther gastrointestinal disorders (19 sources)Functional disorder of intestine; Translations: [Functional intestinal disorder, unspecified]EpisodicOther gastrointestinal disorders (5 sources)Diarrhea, unspecified; Translations: [DIARRHEA UNSPECIFIED]Onset: 03-49-3951UcqyudchUvzot gastrointestinal disorders (3 sources)Personal history of other diseases of the digestive systemEpisodic Other gastrointestinal disorders (9 sources)Disorder of gastrointestinal tract; Translations: [Other specified diseases of the digestive system]Onset: 01-07-2025 Resolved: 124618-56-6553GziuxtfqZowae lower respiratory disease (19 sources)Chronic cough; Translations: [Chronic cough]Onset: 01-07-2025 Resolved: 373246-33-3589TsjqjfnyDwacq lower respiratory disease (1 source)Other forms of dyspneaEpisodicOther lower respiratory disease (9 sources)Hypoxia; Translations: [Hypoxemia]Onset: 01-07-2025 Resolved: 106108-68-4384BxmfwhncLmqzp non-epithelial cancer of skin (9 sources)Squamous cell carcinoma of upper extremity; Translations: [Squamous cell carcinoma of skin of unspecified upper limb, including shoulder]Episodic Other nutritional; endocrine; and metabolic disorders (20 sources)Obese class I; Translations: [Body mass index (BMI) 32.0-32.9, adult]Onset: 30-22-5460KbwiufyRnodd nutritional; endocrine; and metabolic disorders (9 sources)Morbid obesity; Translations: [Morbid (severe) obesity due to excess calories]Onset: 19-06-4053AvrraulIkcrw nutritional; endocrine; and metabolic disorders (9 sources)Simple obesity ; Translations: [Other obesity due to excess calories] Onset: 70-96-0218ExoefvrPagmp nutritional; endocrine; and metabolic disorders (11 sources)Obesity; Translations: [Obesity, unspecified]60-19-3077GtcahdbEdnkd nutritional; endocrine; and metabolic disorders (9 sources)Body mass index 30+ - obesity; Translations: [Body mass index (BMI) 36.0-36.9, adult]ChronicOther nutritional; endocrine; and metabolic disorders (1 source)Morbid (severe) obesity due to excess caloriesChronicOther nutritional; endocrine; and metabolic disorders (1 source)Body mass index (BMI) 36.0-36.9, adultChronicOther screening for suspected conditions (not mental disorders or infectious disease) (19 sources)Encounter for screening for diseases of the blood and blood-forming organs and certain disorders involving the immune mechanism; Translations: [Patient encounter status]Onset: 09-22-2015 Resolved: 625980-43-4416JlyiywiwKhcro skin disorders (2 sources)Eruption; Translations: [Rash and other nonspecific skin eruption] 95-37-2596TmjaduivEgqyy skin disorders (4 sources)Actinic keratosis; Translations: [Actinic keratosis]05-31-2024 EpisodicOther skin disorders (2 sources)Skin tag; Translations: [Other hypertrophic disorders of the skin] 11-06-8805QipxcstxXfrjt skin disorders (3 sources)Asteatosis cutis; Translations: [Xerosis cutis]98-87-3999Puxrtxne Other upper respiratory disease (9 sources)Allergic rhinitis; Translations: [Allergic rhinitis, unspecified] Onset: 28-56-9646RkujcpvXynjt upper respiratory disease (9 sources)Vasomotor rhinitis; Translations: [Vasomotor rhinitis]ChronicOther upper respiratory disease (20 sources)Chronic rhinitis; Translations: [Chronic rhinitis]Onset: 12-16-2022 10-85-1215ZxozdnoJjphi upper respiratory disease (9 sources)Seasonal allergic rhinitis; Translations: [Other seasonal allergic rhinitis]Onset: 01-07-2025 Resolved: 382734-62-8248GfkoaldSelok upper respiratory disease (2 sources)Other seasonal allergic rhinitis; Translations: [Allergic rhinitis, cause unspecified]13-23-6501LimowbsXxunc upper respiratory infections (20 sources)Sinusitis; Translations: [Chronic sinusitis, unspecified]Onset: 598834-02-3638MhrezkqPpzhc upper respiratory infections (20 sources)Acute maxillary sinusitis; Translations: [Acute maxillary sinusitis, unspecified]Onset: 80-80-0546VxjxvgosAwzbnf media and related conditions (20 sources)Acute suppurative otitis media without spontaneous rupture of ear drum; Translations: [Acute suppurative otitis media without spontaneous rupture of ear drum, left ear]EpisodicPneumonia (except that caused by tuberculosis or sexually transmitted disease) (18 sources)Inactive tuberculosis; 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]Onset: 01-07-2025 Resolved: 366901-08-8478TwqyrqqcJyjaqmmo codes; unclassified (2 sources)Hypersomnia; Translations: [Hypersomnia, unspecified]03-13-2025 ChronicResidual codes; unclassified (9 sources)Immunization refused ; Translations: [Immunization not carried out because of patient refusal]EpisodicResidual codes; unclassified (20 sources)Tobacco user; Translations: [Tobacco use]Onset: EpisodicResidual codes; unclassified (10 sources)Family history of cancer of colon; Translations: [Family history of malignant neoplasm of digestiveorgans]Onset: 01-07-2025 Resolved: 100324-63-0879AkkwhdufOxzccrk on above:Problem List clean-up per request of Phys. EHR CmteSpondylosis; intervertebral disc disorders; other back problems (9 sources)Cervical spondylosis without myelopathy; Translations: [Spondylosis without myelopathy or radiculopathy, cervical region]ChronicSprains and strains (18 sources)Neck sprain; Translations: [Strain of muscle, fascia and tendon at neck level, initial encounter]EpisodicSubstance-related disorders (20 sources)Nicotine dependence; Translations: [Nicotine dependence, cigarettes, uncomplicated]Onset: 11-15-2014 Resolved: 02-16-2773LdclmtwZgvwcsyhfknz (1 source)CONTACT W/AND (SUSP) EXPOS COVID-19; Translations: [CONTACT W/AND (SUSP) EXPOS COVID-19]Onset: 39-28-2919Wdzmcitjgyty (9 sources)Exposure to acute respiratory syndrome coronavirus 2; Translations: [Contact with and (suspected) exposure to COVID-19]Viral infection (10 sources)Disease caused by 2019-nCoV; Translations: [COVID-19] Past or Other Problems Problem ClassificationProblemDateDocumented DateEpisodic/ChronicAllergic reactions (18 sources)Allergic contact dermatitis due to plants, except food; Translations: [Allergic contact dermatitis due to plants, except food]Onset: 89-85-9532UwcpubqdCxzzfzgbhj disorders (2 sources)Esophageal disorders; Translations: [Gastro-esophageal reflux disease with esophagitis, without bleeding]Inflammation; infection of eye (except that caused by tuberculosis or sexually transmitteddisease) (9 sources)Acute atopic conjunctivitis of left eye; Translations: [Acute atopic conjunctivitis, left eye] Resolved: 26-23-6483UdphvddrFmxskgpuu (9 sources)Influenza; Translations: [Influenza with other respiratory manifestations]Onset: 64-88-8275StbkllmmVnexbkn and fatigue (9 sources)Malaise and fatigue; Translations: [Other malaise and fatigue]Onset: 85-20-4711RecsqkevIegbfm and vomiting (9 sources)Nausea; Translations: [Nausea]Onset: 70-49-7651ZdikyftpHxiqxcwwzituf gastroenteritis (5 sources)Noninfective gastroenteritis and colitis, unspecified; Translations: [NONINFECTIVE GE AND COLITIS UNS]Onset: 93-80-6462AbtcjwatUzbkr connective tissue disease (9 sources)Synovitis and tenosynovitis; Translations: [Synovitis and tenosynovitis, unspecified]Onset: 01-75-1431LqeuqzzyDgdeo connective tissue disease (9 sources)Pes anserinus tendinitis and bursitis; Translations: [Pes anserinus tendinitis or bursitis]Onset: 76-56-0195GnakwoetHjvsj ear and sense organ disorders (20 sources)Hearing loss; Translations: [Unspecified hearing loss, unspecified ear]Onset: 10-23-2020 Resolved: 144223-37-3004OilvhyvHmdyr gastrointestinal disorders (3 sources)Abdominal distension (gaseous); Translations: [ABDOMINAL DISTENSION GASEOUS]Onset: 08-74-5437AkocnppzZooci gastrointestinal disorders (9 sources)Flatulence, eructation and gas pain; Translations: [Abdominal distension (gaseous)]Onset: 02-50-1981DbxfevkaSfafs gastrointestinal disorders (9 sources)Digestive symptom; Translations: [Other symptoms involving digestive system]Onset: 24-40-9628BzcsoeyiCoqkr non-traumatic joint disorders (9 sources)Arthralgia of the lower leg; Translations: [Pain in unspecified knee] Onset: 36-00-5783TksaxmctCkexd skin disorders (9 sources)Localized swelling, mass and lump, unspecified; Translations: [Localized mass]Onset: 60-16-5228TzdvojbcQtil and subcutaneous tissue infections (9 sources)Cellulitis of right axilla; Translations: [Cellulitis of right axilla]Onset: 43-82-5537AdgmvcvmHedlludcmwf injury; contusion (9 sources)Contusion of lower leg; Translations: [Contusion of unspecified lower leg, initial encounter]Onset: 50-99-8465MwulodjbPakpflndwnfk (9 sources)Long-term current use of drug therapy; Translations: [Long-term (current) use of other medications]Onset: 23-39-3640Vnoutdbbwxtk (1 source)Post COVID-19 condition, 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Unclassified (2 sources)Latent tuberculosisUnclassified (2 sources)Removal of sutures udhe54-99-0405 Results Test NameValueInterpretationReference RangeFacilityHemoglobin [Mass/volume] in Bloodon 34-43-2712Szhjznlvqz (Bld) [Mass/Vol]16.1 g/dL14.0-18.0[facility] HospitalNo Panel Informationon 58-96-0128XZJNTenet St. LouisType of biopsy: tangential Informed consent: discussed and [...] taken yes Amount of lidocaine used: 0.5 Critical access hospitalEstimated glomerular filtration rate (GFR) non- Americanon 10-42-4311MXI/1.73 sq M.predicted among non-blacks MDRD (S/P/Bld) [Vol rate/Area]Estimated glomerular filtration rate (GFR) non- AmericanLow>=60 mL/min/1.73m 2FOhioHealth Grant Medical CenterLaboratory - Chemistry and Chemistry - challengeon 30-86-5780Fvzicsvlun [Mass/Vol]1.34 mg/dLHigh0.70-1.30[facility] HospitalGFR/1.73 sq M.predicted MDRD (S/P/Bld) [Vol rate/Area]mL/min/{1.73_m2} >=60 mL/min/1.73m [address] [place], [place] [address]No Panel Informationon 05-58-5494VKYQTenet St. LouisNo Panel Informationon 36-51-3940Rgxa of biopsy: punch Informed consent: discussed and [...] Number of sutures used: 2 Photo taken [facility] AUTO DIFFon 46-25-2664ABGD #0.1 103/ulNormal0.0-0.1T[facility] Va Medical CenterComment on above: Performed By: #### CBC #### [facility] [address] [address] [address] Kyle AdamsonBasophils/100 WBC (Bld)0.8 %Normal0.2-2.0The [facility] Comment on above:Performed By: #### CBC #### [facility] [address] [address] [address] Kyle Saravia #0.2 103/ulNormal0.0-0.7The [facility] HospitalComment on above: Performed By: #### CBC #### [facility] [address] [address] [address] Kyle Holtosinophils/100 WBC (Bld)3.7 %Normal0.9-7.0[facility] Comment on above:Performed By: #### CBC #### [facility] [address] [address] [address] Kyle Holtrythrocyte distribution width (RBC) [Ratio]14.5 %Vabeqa15.0-15.0 [facility] Medical CenterComment on above:Performed By: #### CBC #### [facility] [address] [place] [address] Dr. Kyle AdamsonHematocrit (Bld) [Volume fraction]44.3 %Qomstz41.0-54.0The [facility] HospitalComment on above:Performed By: #### CBC #### [facility] [address] [place] [address] Dr. Kyle AdamsonHemoglobin (Bld) [Mass/Vol]14.9 g/oZQjgoml66.0-18.0The [facility] HospitalComment on above:Performed By: #### CBC #### [facility] [address] [place] [address] Dr. Kyle Guerrero #0.06 10e3/ulCritically high0.00-0.03[facility] Comment on above:Performed By: #### CBC #### [facility] [address] [place] [address] Dr. Kyle Guerrero %0.9 %Critically high0.0-0.5The [facility] HospitalComment on above:Performed By: #### CBC #### [facility] [address] [place] [address] Dr. Kyle Coleman #2.3 103/ulNormal1.2-3.8The [facility] HospitalComment on above:Performed By: #### CBC #### [facility] [address] [place] [address] Dr. Kyle Paulsonhocytes/100 WBC (Bld)35.9 %Gziesm14.5-60.0The [facility] HospitalComment on above:Performed By: #### CBC #### [facility] [address] [place] [address] Dr. Kyle JacobsenUAL DIFF REQNONormalThe [facility] HospitalComment on above: Performed By: #### CBC #### [facility] [address] [address] [address] Kyle Christian (RBC) [Entitic mass]29.7 okYrpmio79.9-34.0The [facility] HospitalComment on above:Performed By: #### CBC #### [facility] [address] [place] [address] Dr. Kyle Christian (RBC) [Mass/Vol]33.6 g/jKFvqmqb85.9-35.2The [facility] HospitalComment on above:Performed By: #### CBC #### [facility] [address] [place] [address] Dr. Kyle Christian (RBC) [Entitic vol]88.2 kWRguflm73.0-94.0The [facility] HospitalComment on above:Performed By: #### CBC #### [facility] [address] [place] [address] Dr. Kyle Maddox #1.3 103/ulCritically high0.3-0.8The [facility] Comment on above:Performed By: #### CBC #### [facility] [address] [place] [address] Dr. Kyle Hicksocytes/100 WBC (Bld)19.3 %Critically high1.7-12.0The [facility] HospitalComment on above:Performed By: #### CBC #### [facility] [address] [place] [address] Dr. Kyle Amaral #2.6 103/ulNormal1.4-6.5The [facility] HospitalComment on above:Performed By: #### CBC #### [facility] [address] [place] [address] Dr. Kyle Ronutrophils/100 WBC (Bld)39.4 %Critically low43.0-75.0The [facility] HospitalComment on above:Performed By: #### CBC #### [facility] [address] [place] [address] Dr. Kyle Seguralet mean volume (Bld) [Entitic vol]9.5 fLNormal9.5-13.5The [facility] HospitalComment on above:Performed By: #### CBC #### [facility] [address] [place] [address] Dr. Kyle CamachoT287 103/buUpxwhz837-848Tzt [facility] HospitalComment on above: Performed By: #### CBC #### [facility] [address] [place] [address] Dr. Kyle AdamsonRBC5.02 106/ulNormal4.70-6.10The [facility] HospitalComment on above:Performed By: #### CBC #### [facility] [address] [place] [address] Dr. Kyle AdamsonWBC6.5 103/ulNormal4.0-11.0The [facility] HospitalComment on above: Performed By: #### CBC #### [facility] [address] [place] [address] Dr. Kyle AdamsonPROF CHEM 8 (BAS METB)on 87-93-5440Sjzaw gap [Moles/Vol]12.4 mmol/LNormalTogus Va Medical CenterComment on above:Performed By: #### BMP #### [facility] [address] [place] [address] Dr. Kyle AdamsonCalcium [Mass/Vol]8.6 mg/dLNormal8.5-10.1[facility] Comment on above:Performed By: #### BMP #### [facility] [address] [place] [address] Dr. Kyle AdamsonChloride [Moles/Vol]105 mmol/OYbqtvr28-043Kym [facility] Comment on above:Performed By: #### BMP #### [facility] [address] [place] [address] Dr. Kyle AdamsonCO2 [Moles/Vol]24.8 mmol/WVbnohs41.0-32.0The [facility] Comment on above:Performed By: #### BMP #### [facility] [address] [place] [address] Dr. Yilan ChangCreatinine [Mass/Vol]1.30 mg/dLNormal0.70-1.30The [facility] HospitalComment on above:Performed By: #### BMP #### [facility] [address] [place] [address] Dr. Kyle HoltGFR-AF YEMENI>60Normal>=60The [facility] HospitalComment on above:Performed By: #### BMP #### [facility] [address] [place] [address] Dr. Kyle HoltGFR-NON AF ZXUQIRFJ36 mL/min/1.84t4Sjkmgwhgbc low>=60The [facility] HospitalComment on above:Performed By: #### BMP #### [facility] [address] [place] [address] Dr. Kyle AdamsonGlucose [Mass/Vol]109 mg/dLCritically wtmn28-859Wee [facility] HospitalComment on above:Performed By: #### BMP #### [facility] [address] [place] [address] Dr. Kyle AdamsonPotassium [Moles/Vol]4.2 mmol/LNormal3.5-5.1[facility] Comment on above:Performed By: #### BMP #### [facility] [address] [place] [address] Dr. Kyle AdamsonSodium [Moles/Vol]138 mmol/RWxdgeg933-360Tlr [facility] Comment on above:Performed By: #### BMP #### [facility] [address] [place] [address] Dr. Kyle AdamsonUrea nitrogen [Mass/Vol]23.0 mg/dLCritically high7.0-18.0The [facility] HospitalComment on above:Performed By: #### BMP #### [facility] [address] [place] [address] Dr. Kyle Tillman nitrogen/Creatinine [Mass ratio]17.7 mg/mgNormalThe [facility] HospitalComment on above:Performed By: #### BMP #### [facility] [address] [place] [address] Dr. Kyle LedezmaC AUTO DIFFon [id number] #0.1 103/ulNormal0.0-0.1The [facility] HospitalComment on above:Performed By: #### CBC #### [facility] [address] [address] [address] Kyle AdamsonBasophils/100 WBC (Bld)1.0 %Normal0.2-2.0The [facility] Comment on above:Performed By: #### CBC #### [facility] [address] [address] [address] Kyle Saravia #0.3 103/ulNormal0.0-0.7The [facility] HospitalComment on above: Performed By: #### CBC #### [facility] [address] [place] [address] Dr. Kyle Holtosinophils/100 WBC (Bld)3.7 %Normal0.9-7.0The [facility] Comment on above:Performed By: #### CBC #### [facility] [address] [place] [address] Dr. Kyle Holtrythrocyte distribution width (RBC) [Ratio]14.6 %Uchzdb86.0-15.0 The [facility] HospitalComment on above:Performed By: #### CBC #### [facility] [address] [place] [address] Dr. Kyle AdamsonHematocrit (Bld) [Volume fraction]51.9 %Cmrhur62.0-54.0The [facility] HospitalComment on above:Performed By: #### CBC #### [facility] [address] [place] [address] Dr. Kyle AdamsonHemoglobin (Bld) [Mass/Vol]17.9 g/oORudspk93.0-18.0The [facility] HospitalComment on above:Performed By: #### CBC #### [facility] [address] [place] [address] Dr. Kyle Guerrero #0.03 10e3/ulNormal0.00-0.03The [facility] HospitalComment on above:Performed By: #### CBC #### [facility] [address] [address] [address] Kyle Guerrero %0.4 %Normal0.0-0.5The [facility] HospitalComment on above: Performed By: #### CBC #### [facility] [address] [address] [address] Kyle Coleman #2.4 103/ulNormal1.2-3.8The [facility] HospitalComment on above:Performed By: #### CBC #### [facility] [address] [address] [address] Kyle Cabrerahocytes/100 WBC (Bld)33.1 %Vmeden46.5-60.0The [facility] HospitalComment on above:Performed By: #### CBC #### [facility] [address] [place] [address] Dr. Kyle JacobsenUAL DIFF REQNONormalThe [facility] HospitalComment on above: Performed By: #### CBC #### [facility] [address] [place] [address] Dr. Kyle Christian (RBC) [Entitic mass]30.1 tsIuyrbw03.9-34.0The [facility] HospitalComment on above:Performed By: #### CBC #### [facility] [address] [place] [address] Dr. Kyle Christian (RBC) [Mass/Vol]34.5 g/zMPgypjt53.9-35.2The [facility] HospitalComment on above:Performed By: #### CBC #### [facility] [address] [place] [address] Dr. Kyle Christian (RBC) [Entitic vol]87.4 kVYmhnld52.0-94.0The [facility] HospitalComment on above:Performed By: #### CBC #### [facility] [address] [place] [address] Dr. Kyle Maddox #1.6 103/ulCritically high0.3-0.8The [facility] Comment on above:Performed By: #### CBC #### [facility] [address] [address] [address] Kyle AdamsonMonocytes/100 WBC (Bld)22.1 %Critically high1.7-12.0The [facility] on above:Performed By: #### CBC #### [facility] [address] [place] [address] Dr. Kyle RonUT #2.8 103/ulNormal1.4-6.5The [facility] HospitalComment on above:Performed By: #### CBC #### [facility] [address] [place] [address] Dr. Kyle Ronutrophils/100 WBC (Bld)39.7 %Critically low43.0-75.0The [facility] HospitalComment on above:Performed By: #### CBC #### [facility] [address] [place] [address] Dr. Kyle AdamsonPlatelet mean volume (Bld) [Entitic vol]9.3 fLCritically low 9.5-13.5The [facility] HospitalComment on above:Performed By: #### CBC #### [facility] [address] [place] [address] Dr. Kyle AdamsonPLT282 103/zrRudkoi305-021Lsa [facility] HospitalCommarsh[facility] on above: Performed By: #### CBC #### [facility] [address] [place] [address] Dr. yKle AdamsonRBC5.94 106/ulNormal4.70-6.10The [facility] on above:Performed By: #### CBC #### [facility] [address] [place] [address] Dr. Kyle AdamsonWBC7.1 103/ulNormal4.0-11.0The [facility] on above: Performed By: #### CBC #### [facility] [address] [place] [address] Dr. Kyle AdamsonCovid-19 PCR (CVDTBH)on 64-48-2160TZSX-CoV-2 (COVID-19) RNA RADHA+probe Ql (Unsp spec)Not detectedNormalNOT DETECTEDThe [facility] Comment on above:Result Comment: When diagnostic testing is negative, the [...] for this test is supported by the Commodity Manager of Health and Human Service's declaration that circumstances exist to justify the emergency use of in vitro diagnostics for the detection and/or diagnosis of the virus that causes COVID-19. This EUA will remain in effect for the duration of the COVID-19 declaration justifying emergency of IVDs, unless it is terminated or revoked by the FDA (after which the test may no longer be used).Performed By: #### CVDTB #### [facility] [address] [place] [address] Dr. Kyle Platt PANEL (PCR)on 04-23-3468Owwbrdtnmq F 40/41Not detectedNormal NOT DETECTEDThe [facility] HospitalComment on above:Performed By: #### GIPANEL #### [facility] [address] [place] [address] Dr. Kyle AdamsonAstrovirusNot detectedNormalNOT DETECTEDTogus Va Medical Center Comment on above:Performed By: #### GIPANEL #### [facility] [address] [place] [address] Dr. Kyle Bishop. Diff toxin A/BNot detectedNormalNOT DETECTEDThe [facility] HospitalComment on above:Performed By: #### GIPANEL #### [facility] [address] [place] [address] Dr. Kyle ThomasonpylobacterDetectedCritically abnormalNOT DETECTEDThe [facility] HospitalComment on above:Performed By: #### GIPANEL #### [facility] [address] [place] [address] Dr. Kyle AdamsonCryptosporidiumNot detectedNormalNOT DETECTEDThe [facility] HospitalComment on above:Performed By: #### GIPANEL #### [facility] [address] [address] [address] Kyle Rueda. CayetanensisNot detectedNormalNOT DETECTEDThe [facility] HospitalComment on above:Performed By: #### GIPANEL #### [facility] [address] [address] [address] Kyle George Coli T572Hjz ApplicableNormalNot ApplicableThe [facility] HospitalComment on above:Performed By: #### GIPANEL #### [facility] [address] [address] [address] Kyle George histolyticaNot detectedNormalNOT DETECTEDThe [facility] Comment on above:Performed By: #### GIPANEL #### [facility] [address] [address] [address] Kyle HoltAECNcorrina detectedNormalNOT DETECTEDThe [facility] HospitalComment on above:Performed By: #### GIPANEL #### [facility] [address] [address] [address] Kyle HoltIECNcorrina detectedNormalNOT DETECTEDThe [facility] HospitalCommarshfield [facility] center on above:Performed By: #### GIPANEL #### [facility] [address] [address] [address] Kyle HoltPECLuigi detectedNormalNOT DETECTEDThe [facility] HospitalCommarsh[facility] on above:Performed By: #### GIPANEL #### [facility] [address] [address] [address] Kyle HoltTECNot detectedNormalNOT DETECTEDThe [facility] HospitalComment on above:Performed By: #### GIPANEL #### [facility] [address] [address] [address] Kyle Sargent. LambliaNot detectedNormalNOT DETECTEDThe [facility] Comment on above:Performed By: #### GIPANEL #### [facility] [address] [address] [address] Kyle Hutchison CONTROLSPASSEDNoalThAdena Fayette Medical CenterComment on above:Performed By: #### JONELL #### [facility] [address] [address] [address] [facility]go [facility] HEADERGI [facility] Comment on above:Performed By: #### DENNISE #### [facility] [address] [address] [address] Kyle Velez ECOLIGI PANEL DIARRHEAGENIC E.COLI / SHIGELLAFayette County Memorial HospitalComment on above:Performed By: #### DENNISE #### [facility] [address] [address] [address] Kyle Velez INFOSEE [facility] CenterComment on above: Result Comment: EAEC- Enteroaggregative E. Coli EPEC- Enteropathogenic E. Coli ETEC- Enterotoxigenic E. Coli lt/st STEC- Shigella-like toxin-producing E. Coli stx1/stx2 EIEC- Shigella/Enteroinvasive E. ColiPerformed By: #### DENNISE #### [facility] [address] [place] [address] Dr. Kyle Velez PARASITESGI PANEL [facility] Comment on above:Performed By: #### JONELL #### [facility] [address] [address] [address] Kyle Velez VIRUSGI PANEL [facility] HospitalComment on above:Performed By: #### DENNISE #### [facility] [address] [address] [address] Kyle Shipleyrovirus GI/GIINot detectedNormalNOT DETECTEDTogus Va Medical CenterComment on above:Performed By: #### DENNISE #### [facility] [address] [address] [address] Kyle Keyes. ShigelloidesNot detectedNormalNOT DETECTEDThe [facility] HospitalComment on above:Performed By: #### DENNISE #### [facility] [address] [address] [address] Yilan ChangRotavirus ANot detectedNormalNOT DETECTEDThe [facility] Comment on above:Performed By: #### GIPANEL #### [facility] [address] [place] [address] Dr. Kyle AdamsonSalmonellaNot detectedNormalNOT DETECTEDThe [facility] Comment on above:Performed By: #### GIPANEL #### [facility] [address] [address] [address] Kyle AdamsonSapovirusNot detectedNormalNOT DETECTEDThe [facility] Comment on above:Performed By: #### GIPANEL #### [facility] [address] [address] [address] Kyle AdamsonSTECNot detectedNormalNOT DETECTEDThe [facility] HospitalComment on above:Performed By: #### GIPANEL #### [facility] [address] [place] [address] Dr. Kyle CarbajalbrioNot detectedNormalNOT DETECTEDThe [facility] HospitalComment on above:Performed By: #### GIPANEL #### [facility] [address] [place] [address] Dr. Kyle Gamezio CholeraNot detectedNormalNOT DETECTEDTogus Va Medical Center Comment on above:Performed By: #### GIPANEL #### [facility] [address] [place] [address] Dr. Kyle Zafar. EnterocoliticaNot detectedNormalNOT DETECTEDThe [facility] HospitalComment on above:Performed By: #### GIPANEL #### [facility] [address] [place] [address] Dr. Kyle OliveiraF CHEM 8 (BAS METB)on 00-20-6542Bjhei gap [Moles/Vol]17.9 mmol/LNormalThe [facility] HospitalComment on above:Performed By: #### BMP #### [facility] [address] [place] [address] Dr. Kyle AdamsonCalcium [Mass/Vol]9.6 mg/dLNormal8.5-10.1[facility] Comment on above:Performed By: #### BMP #### [facility] [address] [address] [address] Kyle AdamsonChloride [Moles/Vol]98 mmol/DRiweoo24-604Rej [facility] Comment on above:Performed By: #### BMP #### [facility] [address] [address] [address] Kyle AdamsonCO2 [Moles/Vol]24.4 mmol/QDcovib63.0-32.0The [facility] Comment on above:Performed By: #### BMP #### [facility] [address] [address] [address] Kyle AdamsonCreatinine [Mass/Vol]1.65 mg/dLCritically high0.70-1.30The [facility] HospitalComment on above:Performed By: #### BMP #### [facility] [address] [address] [address] Wright ChangEGFR-AF JKLPXGDE63 mL/min/1.70t3Qvwbixkaop low>=60The [facility] HospitalComment on above:Performed By: #### BMP #### [facility] [address] [address] [address] Kyle HoltGFR-NON AF ZZYXMTDS86 mL/min/1.58n4Lgzvkkqeyj low>=60The [facility] HospitalComment on above:Performed By: #### BMP #### [facility] [address] [address] [address] Kyle AdamsonGlucose [Mass/Vol]124 mg/dLCritically hmdh53-029Rbv [facility] HospitalComment on above:Performed By: #### BMP #### [facility] [address] [address] [address] Kyle AdamsonPotassium [Moles/Vol]4.3 mmol/LNormal3.5-5.1The [facility] Comment on above:Performed By: #### BMP #### [facility] [address] [address] [address] Kyle AdamsonSodium [Moles/Vol]136 mmol/DYlqrdr491-395Fsz [facility] Comment on above:Performed By: #### BMP #### [facility] [address] [address] [address] Kyle AdamsonUrea nitrogen [Mass/Vol]31.0 mg/dLCritically high7.0-18.0The [facility] on above:Performed By: #### BMP #### [facility] [address] [place] [address] Dr. Kyle AdamsonUrea nitrogen/Creatinine [Mass ratio]18.8 mg/mgNoACMC Healthcare SystemComment on above:Performed By: #### BMP #### [facility] [address] [place] [address] Dr. Kyle AdamsonCT ABD/PELV W CONon 73-25-1730HE ABD/PELV W CONEXAMINATION: CT ABD/PELV W CON, 05/28/2022 11:26 AM [...] Electronically authenticated by: TERRA GUNTER Date: 2022-05-31 07:13[facility] HospitalCREATININEon 81-13-8557Gzfeeepzey [Mass/Vol]0.95 mg/dLNormal 0.70-1.30The [facility]anie HospitalComment on above:Performed By: #### CREA #### [facility] [address] [place], [place] [address] Dr. Kyle HoltGFR-AF YEMENI>60Normal>=60The [facility] HospitalComment on above:Performed By: #### CREA #### [facility] [address] [place], [place] [address] Dr. Wright ChangEGFR-NON AF YEMENI>60Normal>=60The [facility] HospitalComment on above:Performed By: #### CREA #### [facility] [address] [address] [address] Wright ChangCT Sinus w/o Contrast*on 43-02-7563MF Sinus w/o Contrast*CLINICAL HISTORY: Sinus drainage. No prior surgery. COMPARISON: [...] and signed by Elda Mills on 02/08/2022 0855NormalNorthern [facility] SpecialistBasic Metabolic Panelon 10-48-9663Ffsqw gap [Moles/Vol]17 mmol/ZOmevjm31-21Illspaoa [facility] SpecialistComment on above:Result Comment: Effective 07/30/2019 reference range changed.Performed By: #### BMP #### [facility] [address] [place], [place] [id number] [Mass/Vol]9.6 mg/dLNormal8.6-10.2Northn [facility] SpecialistComment on above:Performed By: #### BMP #### [facility] [address] [place], [place] [id number] [Moles/Vol]103 mmol/TKtpkku67-418Rlpthtrj [place] [facility] SpecialistComment on above:Performed By: #### BMP #### [facility] [address] [place], [place] [id number] [Moles/Vol]23 mmol/BKtdmqo92-38Mowxorya [place] [facility] SpecialistComment on above:Performed By: #### BMP #### [facility] [address] [place], [place] [id number] [Mass/Vol]0.9 mg/dLNormal0.7-1.4NoTrinity Health System SpecialistComment on above:Performed By: #### BMP #### [facility] [address] [place], [place] [id number] mL/min/1.39r8Lzhldl>60[facility]ort[facility] SpecialistComment on above:Performed By: #### BMP #### [facility] [address] [place], [place] [id number] mL/min/1.67z7Xbbydg>60[facility]ortDo[facility] SpecialistComment on above:Performed By: #### BMP #### [facility] [address] [place], [place] [id number] [Mass/Vol]113 mg/gFJecn94-87Phsxpjoi [place] [facility] SpecialistComment on above:Result Comment: For FASTING Glucose --- ADA reference ranges: Normal 65-99 mg/dl Prediabetes 100-125 Diabetes >/= 126Performed By: #### BMP #### [facility] [address] [place], [place] [id number] [Moles/Vol]5.0 mmol/LNormal3.5-5.5NoTrinity Health System SpecialistComment on above:Result Comment: Specimen is hemolyzed. Results may be affected.Performed By: #### BMP #### [facility] [address] [place], [place] [id number] [Moles/Vol]138 mmol/DAgtroz662-823Dbjzpaqm [facility] SpecialistComment on above:Performed By: #### BMP #### [facility] [address] [place], [place] [id number] nitrogen [Mass/Vol]14 mg/dLNormal7-25Northern [facility] SpecialistComment on above:Performed By: #### BMP #### [facility] [address] [place], [place] [id number] Vital Signs Date TimeVital SignValuePerforming HgxxuvktvUtvqgjjs65-41-4169 10:55-0400Body tumzji156.42 cmBenjamin Ball DO Work Phone: [phone] [place], [place] [address]385610-14-2025 10:55-0400 Body mass index (BMI) [Ratio]35.8 kg/i3Vjbymzqg Ball DO Work Phone: [phone]10-14-2025 10:55-0400 Body qgixud095.15 kgBenjamin Ball DO Work Phone: [phone] [place], [place] [address]10-14-2025 10:55-0400 Diastolic blood fqtnkwli12 mm[Hg]Mark Ball DO Work Phone: [phone] [place], [place] [address]10-14-2025 10:55-0400 Heart rate79 /minBenjamin Ball DO Work Phone: [phone] [place], [place] [address]10-14-2025 10:55-0400 Respiratory rate12 /minBenjamin Ball DO Work Phone: [phone] [place], [place] [address]10-14-2025 10:55-0400 Systolic blood vvbtoekk727 mm[Hg]Mark Ball DO Work Phone: [phone] [place], [place] [address]385608-20-2025 08:45-0400 Body mass index (BMI) [Ratio]36.41 kg/y1Mtabcf Tez DO Work Phone: [facility] LouisQimhqsjynl81-39-1718 08:45-0400Body ypmojd996.19 kgLeanne Tez DO Work Phone: [facility] LouisEvovbhhjex88-86-8234 08:45-0400Diastolic blood ulyruhhl77 mm[Hg]Jen Tez DO Work Phone: [phone] LouisJuvbsbnanm57-94-9018 08:45-0400Heart rate77 /min Jen Tez DO Work Phone: [phone] LouisPbcdgodfif21-81-5004 08:45-4698NxF1% (BldA) [Mass fraction]95 %Jen Tez DO Work Phone: [phone] [place], [place] [address]Ospksvxhtt12-31-3887 08:45-0400Systolic blood vdggskaq180 mm[Hg]Jen Tez DO Work Phone: [phone] [place], [place] 49[address]907-08-2025 09:29-0400Body jrshwe500.42 cmBenjamin Ball DO Work Phone: [facility]07-08-2025 09:29-0400 Body mass index (BMI) [Ratio]36.1 kg/k6Nesvymjn Ball DO Work Phone: [facility]07-08-2025 09:29-0400 Body pupstu490.28 kgBenjamin Ball DO Work Phone: [facility]06-25-2025 09:00-0400 Body mass index (BMI) [Ratio]36.41 kg/y9Nfaepn Tez DO Work Phone: [phone] LouisYwiupzpvhb86-27-0867 09:00-0400Body sfwkzi526.19 kgLeanne Tez DO Work Phone: [phone] [place], [place] [address]Cktadyivha33-83-6058 09:00-0400Diastolic blood iefpyrsg73 mm[Hg]Jen Tez DO Work Phone: [phone] LouisAdizfopphn38-28-1422 09:00-0400Heart rate94 /min Jen Tez DO Work Phone: [phone] [facility] [address] LouisRmgkmevzke43-02-0970 09:00-3622MtL9% (BldA) [Mass fraction]95 %Jen Tez DO Work Phone: [facility] LouisTxciapdqne31-60-2204 09:00-0400Systolic blood vdzyjrta194 mm[Hg]Jen Tez DO Work Phone: [facility] LouisHrfhaupygf57-35-4104 14:01-0400Body .42 cmBenjamin Ball DO Work Phone: [facility]06-16-2025 14:01-0400 Body mass index (BMI) [Ratio]36.1 kg/m6Oiprmbhi Ball DO Work Phone: [phone]06-16-2025 14:01-0400 Body fjcuovhwcta52.2 [degF]Mark Ball DO Work Phone: [phone]06-16-2025 14:01-0400 Body ciuwus264.28 kgBenjamin Ball DO Work Phone: [phone]06-16-2025 14:01-0400 Diastolic blood fhsiuqta92 mm[Hg]Mark Ball DO Work Phone: [phone]06-16-2025 14:01-0400 Heart rate83 /minBenjamin Ball DO Work Phone: [phone]06-16-2025 14:01-0400 Systolic blood zzbheftk553 mm[Hg]Mark Ball DO Work Phone: [phone]04-11-2025 09:15-0400 Body lphiye352.4 cmPaul Biedenbach DO Work Phone: [facility] LouisNdrueilxaa07-85-2231 09:15-0400Body mass index (BMI) [Ratio]36.28 kg/m2Paul Biedenbach DO Work Phone: [facility] LouisWuoonczqww61-63-2748 09:15-0400Body .74 kgPaul Biedenbach DO Work Phone: [facility] LouisEwjkbbcnis30-23-5267 15:56-0400Body kvpuxp322.42 cmC[facility]2025 15:56-0400Body mass index (BMI) [Ratio]37.3 kg/r7LqhbksxbpC[facility] Clinic [facility] Hospital2025 15:56-0400Body hzrohu317.48 kgC[facility] Clinic [facility] Hospital2025 15:56-0400Diastolic blood mdwdecey35 mm[Hg][facility]2025 15:56-0400 Heart rate80 /[facility]2025 15:56-0400 Respiratory rate12 /[facility]2025 15:56-0400 Systolic blood scbeuapi090 mm[Hg][facility]01-16-2025 10:10-0500Body oabclx884.42 cmCleveland Clinic [facility] Hospital01-16-2025 10:10-0500Body mass index (BMI) [Ratio]36.8 kg/x9JyryzjelyCleveland Clinic [facility] Hospital01-16-2025 10:10-0500Body pkpsde109.6 kgC[facility] Clinic [facility] 08-09-2024 10:10-0500Diastolic blood mgtcyiyl10 mm[Hg][facility]01-16-2025 10:10-0500Heart rate89 /[facility] 08-09-2024 10:10-0500Respiratory rate12 /[facility] 08-09-2024 10:10-0500Systolic blood ngkivnmn770 mm[Hg][facility]05-06-2024 10:57-0400Diastolic blood gqkuahiv99 mm[Hg]DO Mark Ball Work Phone: [facility]05-06-2024 10:57-0400 Heart rate75 /minDO Mark Ball Work Phone: [facility]05-06-2024 10:57-0400 Respiratory rate18 /minDO Mark Ball Work Phone: [facility]05-06-2024 10:57-0400 SaO2% (BldA) [Mass fraction]98 %DO Mark Ball Work Phone: [facility]05-06-2024 10:57-0400 Systolic blood umrgiyxy427 mm[Hg]DO Mark Ball Work Phone: [facility]05-06-2024 09:16-0400 Body kulyoq336.42 cmDO Mark Ball Work Phone: [facility]05-06-2024 09:16-0400 Body .56 kgDO Mark Ball Work Phone: [facility]10-23-2023 14:45-0400 Body .42 cmMichael Blank Other [employer] Other 10-23-2023 14:45-0400Body mass index (BMI) [Ratio] 36.15 kg/d4Ewruyqf Blank Other [employer] Other 10-23-2023 14:45-0400Body pdwjhimcvvo32.9 [degF] Mulugeta Bella Other [employer] Other 10-23-2023 14:45-0400Body kqbonh075.29 kgMichael Blank Other [employer] Other 10-23-2023 14:45-0400Diastolic blood ddrejrdy68 mm[Hg] Mulugeta Bella Other [employer] Other 10-23-2023 14:45-0400Systolic blood vxynvvkl202 mm[Hg] Mulugeta Bella Other [employer] Other 10-20-2023 10:30-0400Body zurhdh500.42 cmBenjamin Ball Other [employer] Other 10-20-2023 10:30-0400Body mass index (BMI) [Ratio] 36.62 kg/p0Fbmmqway Ball Other [employer] Other 10-20-2023 10:30-0400Body .92 kgBenjamin Ball Other [employer] Other 10-20-2023 10:30-0400Diastolic blood orexeaiz52 mm[Hg] Mark Ball Other [employer] Other 10-20-2023 10:30-0400Respiratory rate12 /minBenjamin Ball Other [employer] Other 10-20-2023 10:30-0400Systolic blood xvixwcnm400 mm[Hg] Mark Ball Other [employer] Other 03-10-2023 11:30-0500Body slyayz511.42 cmBenjamin Ball Other [employer] Other 03-10-2023 11:30-0500Body mass index (BMI) [Ratio] 36.15 kg/j1Bzeiqlbu Ball Other [employer] Other 03-10-2023 11:30-0500Body .29 kgBenjamin Ball Other [employer] Other 03-10-2023 11:30-0500Diastolic blood mm[Hg] Mark Ball Other [employer] Other 03-10-2023 11:30-0500Systolic blood utvjzqdx800 mm[Hg] Mark Ball Other [employer] Other 09-27-2022 10:45-0400Body .42 cmCameron Wany Other [employer] Other 09-27-2022 10:45-0400Body mass index (BMI) [Ratio] 36.28 kg/v4Hubrlhj Ditty Other [employer] Other 09-27-2022 10:45-0400Body fcasfo476.74 kgCameroeddi Ditty Other [employer] Other 09-27-2022 10:45-0400Diastolic blood mhgxmebs308 mm[Hg]Axel Syedtty Other [employer] Other 09-27-2022 10:45-0400Systolic blood zofryzpg971 mm[Hg] Axel Syedtty Other [employer] Other 07-20-2022 17:30-0400Body zwepve216.42 cmDavid Hykes Other [employer] Other 07-20-2022 17:30-0400Body mass index (BMI) [Ratio] 35.09 kg/g7Lhveo Hykes Other [employer] [email or web address] Other 07-20-2022 17:30-0400Body qhzqye820.66 kgDavid Hykes Other [employer] Other Encounters Encounter DateEncounter TypeCare ProviderFacilityStart: 05-07-2025 End: 24-48-6868syhutwdxdjTkmlcmkz Ball DO Work Phone: [facility] Work Phone: Start: 05-07-2025 End: 87-74-4908Qfyjnkn encounter procedureBeirwin Wheatley [facility] Work Phone: Start: 05-07-2025 End: 76-10-5949Eyvxpss encounter statusBeirwin Wheatley [facility]: 03-13-2025 End: 10-20-0599Kijayx flowsHiren Shanks Tez DO Work Phone: [facility] FNR PULMStart: 03-13-2025 End: 80-51-1347Zdllqa flowsheetLesamanthae Rimma Tez DO Work Phone: [facility] FNR PULMStart: 03-13-2025 End: 75-68-4789Pewfgz outpatient visit 25 minutesLevivek Shanks Tez DO Work Phone: noms FNR PULMComment on above:Chronic obstructive pulmonary disease, unspecified COPD type (HCC) (Primary Dx); Cigarette smoker; HypersomnolenceStart: 01-29-2025 End: 60-02-7104utnyqlpwylCdrstldh Ball Work Phone: [facility] Work Phone: Start: 01-29-2025 End: 68-59-7060Pkrrwce encounter procedureAditya [facility] Work Phone: Start: 01-16-2025 End: 64-21-8204Dvjjau flowsHiren Shanks Tez DO Work Phone: [facility] FNR PULMStart: 01-16-2025 End: 79-92-7947Jfrgwk flowsheetLeanne Rimma Tez DO Work Phone: [facility] FNR PULMStart: 01-16-2025 End: 42-17-9736Rpdgiq outpatient new 45 minutesLevivek Shanks Tez DO Work Phone: noms FNR PULMComment on above:Chronic obstructive pulmonary disease, unspecified COPD type (HCC) (Primary Dx); Cigarette smokerStart: 01-16-2025 End: 50-64-5327vcigzsalqyBHUQAE K STRACKNot AvailableStart: 01-07-2025 End: 37-71-2507Slkhnpg encounter statusLevivek Reagan DO Work Phone: noms HealthcareStart: 01-07-2025 End: 86-86-8911Rbjibeu encounter procedureMulugeta Bella MD-[facility] Infect Dis Work Phone: Start: 93-57-6620Cum-patient / Non-visitOutside Provider-[facility] Work Phone: Start: 12-25-2024 End: 24-30-4170Qqvluddarrius Toro MD Work Phone: noms SWS DERMStart: 12-25-2024 End: 86-03-2163Ycyjxk flowsheetEmxenia Toro MD Work Phone: n[facility] SWS DERMStart: 12-25-2024 End: 10-36-0804Fpimok outpatient visit 25 minutesEmily Rama Toro MD Work Phone: noms SWS DERMComment on above:Tinea manuum (Primary Dx); Skin tag; Neoplasm of unspecified behavior of bone, soft tissue, and skin; Actinic keratosisStart: 12-25-2024 End: 79-11-7728pdxqwpbsgiQSSYL A PETITTINot AvailableStart: 12-18-2024 End: 15-57-7556Brncwkykj encounterBenjamin E Ball DO Work Phone: noms FNR FMStart: 53-49-3246akxcyyoyayGpemfdjniOhioHealth [facility] Work Phone: Start: 57-93-7892Zug-patient / Non-visitFircincinnatis Physician Group-[facility] Work Phone: Start: 11-02-2024 End: 12-23-4064Rjwhsy Luis Cardona DO Work Phone: noms ENT SANDUSKYStart: 11-02-2024 End: 27-93-3224Mvfvqe flowsheetPaul S Biedenbach DO Work Phone: [facility] ENT SANDUSKYStart: 11-02-2024 End: 14-31-4457rifnvtepyrZITM S BIEDENBACHNot AvailableStart: 11-02-2024 End: 79-46-7153Jmecmk outpatient visit 25 minutesPaul S Biedenbach DO Work Phone: noms ENT SANDUSKYComment on above:Chronic cough (Primary Dx); Chronic rhinitis; Tobacco abuse; Laryngopharyngeal reflux (LPR)Start: 63-54-6094Zkl-patient / Non-visitWatauga Medical Center Physician GroupPe[facility] Work Phone: Start: 10-17-2024 End: 65-07-2748trdfirvhuwGyagdeuosRegency Hospital [facility] Work Phone: Start: 10-17-2024 End: 60-87-9446Xkqztpo encounter procedureWatauga Medical Center [facility] Work Phone: Start: 08-14-2024 End: 79-48-7653Qacado flowsheetNatalie A Felter GRE[employer] C[employer]TER-MEDICAL ADMINISTRATIVE ASSISTANT Work Phone: noms SWS DERMStart: 08-14-2024 End: 07-12-9009Sfqrlo flowsheetNatalie A Felter [employer]-MEDICAL ADMINISTRATIVE ASSISTANT Work Phone: noms SWS DERMStart: 08-14-2024 End: 82-51-6358Mctnbn outpatient visit 10 minutesNatalie A Felter [employer]-MEDICAL ADMINISTRATIVE ASSISTANT Work Phone: noms SWS DERMComment on above:Tinea manusStart: 08-14-2024 End: 93-96-0065hvhyhrdyaoJQPNLBC A FELTERNot AvailableStart: 08-09-2024 End: 44-19-4830Xbhltdt encounter procedureWatauga Medical Center Physician GroupAv[facility] Work Phone: Start: 06-14-2024 End: 27-40-5179Vlyujw flowsheetNatalie A Felter GRE[employer] C[employer]TER-MEDICAL ADMINISTRATIVE ASSISTANT Work Phone: NOUG [facility] DERMStart: 06-14-2024 End: 46-49-4772Fftvhc flowsheetNatalie A Felter [employer] C[employer]TER-MEDICAL ADMINISTRATIVE ASSISTANT Work Phone: NOXD [facility] DERMStart: 06-14-2024 End: 09-27-4216Peskpqpvm encounterNatalie A Felter [employer] C[employer]TER-MEDICAL ADMINISTRATIVE ASSISTANT Work Phone: NOGH [facility] DERMStart: 06-14-2024 End: 80-33-3329Tblpfb outpatient visit 15 minutesNatalie A Felter [employer] C[employer]TER-MEDICAL ADMINISTRATIVE ASSISTANT Work Phone: noms [facility] DERMComment on above:Tinea manus; High risk medication use; Other atopic dermatitisStart: 06-14-2024 End: 99-02-0654eerspcbdlkJOAZMVA A FELTERNot AvailableStart: 05-31-2024 End: 63-14-9960Eefgxq flowsheetNatalie A Felter [employer]TER-MEDICAL ADMINISTRATIVE ASSISTANT Work Phone: NOBW [facility] DERMStart: 05-31-2024 End: 74-98-1018Moltan flowsheetNatalie A Felter [employer] C[employer]TER-MEDICAL ADMINISTRATIVE ASSISTANT Work Phone: NOSC [facility] DERMStart: 05-31-2024 End: 93-99-3302Mjzlqr outpatient visit 15 minutesNatalie A Felter [employer]TER-MEDICAL ADMINISTRATIVE ASSISTANT Work Phone: NOPX [facility] DERMComment on above:Tinea manus (Primary Dx); Actinic keratosis; Other atopic dermatitisStart: 05-31-2024 End: 14-81-3476yoeprbzqbbEJCAWMT A FELTERNot AvailableStart: 05-17-2024 End: 66-43-0241Resugn flowsheetNatalie A Felter [employer]-MEDICAL ADMINISTRATIVE ASSISTANT Work Phone: NOMN [facility] DERMStart: 05-17-2024 End: 36-44-1422Uquikb flowsheetNatalie A Felter GRE[employer] C[employer]TER-MEDICAL ADMINISTRATIVE ASSISTANT Work Phone: [facility] SWS DERMStart: 05-17-2024 End: 49-49-1799Ozqjcz outpatient visit 25 minutesNatalie A Felter [employer]-MEDICAL ADMINISTRATIVE ASSISTANT Work Phone: NOMS SWS DERMComment on above:Tinea manus (Primary Dx); Encounter for removal of suturesStart: 05-17-2024 End: 89-96-1540dnesganwudNLUGEEX A FELTERNot AvailableStart: 05-07-2024 End: 31-71-6584Ilivda flowsheetNatalie A Felter [employer]-MEDICAL ADMINISTRATIVE ASSISTANT Work Phone: noms SWS DERMStart: 05-07-2024 End: 93-76-2628Imnifp flowsheetNatalie A Felter [employer] C[employer]TER-MEDICAL ADMINISTRATIVE ASSISTANT Work Phone: [facility] SWS DERMStart: 05-07-2024 End: 98-48-7948Lairrgr encounter procedureNatalie A Felter [employer]-MEDICAL ADMINISTRATIVE ASSISTANT Work Phone: NOCO SWS DERMComment on above:Rash and other nonspecific skin eruptionStart: 05-07-2024 End: 79-72-0271ujneejfckzSZXDTTQ A FELTERNot AvailableStart: 77-96-2776Oyvrshr encounter statusKnox Community Hospitaltart: 11-28-2023 End: 43-80-7020ygwgeltbctZsrxplt J DittyFacility:[facility] Hospitaltart: 13-86-7031Dva-patient / Non-visitDO Mark Wheatley Work Phone: [facility] Work Phone: Start: 11-28-2023 End: 59-10-4561Bigasmuwz to same day surgery centerDO Mark Wheatley Work Phone: [facility] Work Phone: Start: 11-28-2023 End: 79-41-2705hgvkonidgkET Mark Wheatley Work Phone: [facility] Work Phone: Start: 08-29-2023 End: 55-97-0672pjjulsdedbWabpkkyy Ball Other [employer] [email or web address] Other Start: 71-89-2105Uhoref outpatient visit 15 minutes Mark BallFPG [facility] ClinicStart: 08-25-2023 End: 24-66-2676qszzzxxnkzKcjuidhc Ball Other [employer] [email or web address] Other Start: 57-91-8506Lkmpoq outpatient visit 15 minutes Mark BallFPG [facility] ClinicStart: 05-16-2023 End: 01-39-0381wfciuwfldbRrwzwfv Blank Other [facility] [email or web address] Other Start: 99-58-1335Ysfhzr outpatient visit 25 minutes Mulugeta BlankFPG Infectious DiseaseStart: 05-13-2023 End: 61-01-9982zmgqadbsgkLvnhxkhh Ball Other [facility] [email or web address] Other Start: 99-86-3269Wdqsry outpatient visit 25 minutes Mark BallFPG [facility] ClinicStart: 05-02-2023 End: 17-95-4747xgonyidtsdArdcgwj Blank Other [facility] [email or web address] Other Start: 41-63-2552Dtozgdocw encounterMichael BlankFPG Infectious DiseaseStart: 04-28-2023 End: 43-07-7150pihbpzzibsHtzujxen Ball Other [facility] [email or web address] Other Start: 08-23-4977Mvmsqgaor encounterBenjamin BallFPG [facility] ClinicStart: 04-20-2023 End: 64-43-0143hjepvswhqpIcioroey Ball Other [employer] [email or web address] Other Start: 94-96-7860Rjhckvhxj encounterBenjamin BallFPG [facility] ClinicStart: 03-31-2023 End: 86-51-8679lubjmlsaqhLlfouyxs Ball Other [employer] Other Start: 34-81-6880Lumeffncc encounterBenjamin BallFPG [facility] ClinicStart: 01-26-2023 End: 15-32-6226oexromnxxxKaafoghq Ball Other [employer] Other Start: 25-83-7906Ljcjhvpzy for general adult medical examination without abnormal findingsBenjamin BallFPG [facility] ClinicStart: 84-61-9425Kewvquybd encounterBenjamin BallFPG [facility] ClinicStart: 11-29-2022 End: 49-38-8158sbgpwgeozjPzojdefq Ball Other [employer] Other Start: 62-15-4908Vrvduj outpatient visit 15 minutes Mark BallFPG [facility] ClinicStart: 10-01-2022 End: 38-08-4968rlqmxlpclzJjgznefc Ball Other [employer] Other Start: 95-99-2371Xhzdas outpatient visit 15 minutes Mark BallFPG [facility] ClinicStart: 13-07-6053Pumdekvin encounterBenjamin BallFPG [facility] ClinicStart: 09-27-2022 End: 79-53-7329evxvqwdjgrMV MARK BALLFacility:U6Jnvwv: 09-24-2022 End: 09-58-9761jlryxqyogrQsukjcwh Ball Other [employer] Other Start: 49-97-7818Tqjvtd outpatient visit 15 minutes Mark BallFPG [facility] ClinicStart: 09-06-2022 End: 57-45-4548otxwscgicsTvqjctlk Ball Other [employer] Other Start: 47-80-7463Pelgfp outpatient visit 15 minutes Mark BallFPG [facility] ClinicStart: 06-02-2022 End: 34-71-7857ycejxzturlZfxahfd Ditty Other [employer] Other Start: 39-34-0854Lhcxifvhz encounterCameron DittyFPG GastroenterologyStart: 05-28-2022 End: 38-79-7323xvbxzdbmyoGM DOCTOR MISCFacility:T0Siblk: 05-27-2022 End: 76-98-2550ctaimsnvzhNszkxwt Ditty Other [employer] Other Start: 78-14-5624Hyqerdnos encounterCameron DittyFPG GastroenterologyStart: 05-24-2022 End: 80-17-1144ivljmoafacCqttlzz Ditty Other [employer] Other Start: 99-86-5480Dwsmyivvc encounterCameron DittyFPG GastroenterologyStart: 05-10-2022 End: 93-28-5612bqiiuvmmqnZtrxykp Ditty Other [employer] Other Start: 98-04-4085Nzqovnzad encounterCameron DittyFPG GastroenterologyStart: 04-26-2022 End: 75-14-5746ymgqeutcooDckbacx Ditty Other [employer] Other Start: 23-27-8976Qhaeprspl encounterCameron DittyFPG GastroenterologyStart: 04-20-2022 End: 53-62-1643vecobiticoSdypoyp Ditty Other [employer] Other Start: 31-53-3726Pojtlac encounter procedureCameron DittyFPG GastroenterologyStart: 03-18-2022 End: 57-43-0049ldcbkdymsdJgqxbcl Ditty Other [employer] Other Start: 76-02-8319Nrzinbava encounterCameron DittyFPG GastroenterologyStart: 03-01-2022 End: 21-57-9815typcdejomkWwnfn Hykes Other [employer] Other Start: 08-42-2315Myjosdqug encounterDavid HykesFPG GastroenterologyStart: 02-22-2022 End: 45-39-3618busesplqocUsrbd Hykes Other [employer] Other Start: 51-37-4181Fjinisxlp encounterDavid HykesFPG GastroenterologyStart: 02-10-2022 End: 58-66-5949jafwfxwjjmUqnia Hykes Other [employer] Other Start: 45-07-9046Lnvwfp outpatient visit 25 minutes Terra Zhou GastroenterologyStart: 95-15-0959Okpbdizem for other preprocedural examinationDR STERLING [facility] HospitalStart: 12-01-2021 End: 00-68-3844vbazyjierxTA MARK WHEATLEYFacility:O8Yluut: 12-01-2021 End: 08-65-0944Ackulecsw for other preprocedural examinationDR MARK WHEATLEY Facility:U5Qyqva: 44-56-2621Uznik health examinationBenkailashsmiley Wheatley Other [place] [email or web address] Other Procedures DateProcedureProcedure DetailPerforming ClinicianStart: 43-27-8436RBGDNAHHEKW SKIN LESIONEmily Rama Toro MD Work Phone: Start: 11-33-4836AFWG / NAIL BIOPSYEmily Rama Toro MD Work Phone: Start: 79-57-5826MQMOIBGSBQH SKIN LESIONNatalie A Shawn [employer]-MEDICAL ADMINISTRATIVE ASSISTANT Work Phone: Start: 05-07-2024 End: 73-23-7806QJZJ / NAIL BIOPSYNatalie A Shawn [employer]-MEDICAL ADMINISTRATIVE ASSISTANT Work Phone: Start: 46-29-3492DkknzkggeytBI Mark Wheatley Work Phone: Start: 50-16-2499Eussiah examination of patient Mark Wheatley Other Start: 93-54-2690Rjnwzlye mellitus screeningBensteven Wheatley Other Start: 52-84-8515Bvikkgxjxlrknv screeningMark Wheatley Other Start: 22-44-0777Pwgeqijpw for malignant neoplasm of colonMark Wheatley Other Start: 94-96-1404Toclogejn for malignant neoplasm of prostateMark Wheatley Other Depression screeningBensteven Wheatley Other Screening for malignant neoplasm of prostateMark Wheatley Other Plan of Treatment DateCare ActivityDetailAuthorStart: 25-72-8804Hrmhrejti for malignant neoplasm of colonNOMS HealthcareStart: 08-15-2025 End: 44-41-6103Jwcncjt encounter procedureNOMS SWS DERMStart: 06-07-2025 End: 38-97-2617Xmvhoeq encounter wbyhveezm40/14/2025 9:45 AM EST Office Visit [facility] [address] [place] [address] Jen Reagan, DO [address] [place] [address] [facility] FNR PULMStart: 70-94-3975Phasmbgiu vaccinationNOMS HealthcareStart: 03-13-2025 End: 13-31-7445Mmwigct encounter procedureNOMS FNR PULMComment on above:Arrived Start: 02-11-2025 End: 98-59-1814Bjbibph encounter artatdtfu29/21/2025 9:15 AM EDT Office Visit [facility] [place] [address] [phone] Sterling Cardona DO [address] [place] [address] [facility] E[facility] SANDUSKYStart: 01-16-2025 End: 23-50-5757Srjfqlo encounter procedureNOMS FNR PULMComment on above:Arrived Start: 12-25-2024 End: 05-32-7098Agitsdx encounter mquifoqau90/03/2025 11:00 AM EDT Office Visit [facility] [address] [place] [address] Rudolph Toro MD [address] [place] [address] ArrivedNOMS SWS DERMComment on above:ArrivedStart: 56-01-4487Qkrzkzs referralOhiohealth Shelby Hospital Work Phone: Start: 11-02-2024 End: 50-70-3977Pgqmqimjr function reportPulmonary Function Test Imaging Routine Chronic rhinitis Chronic cough Expected: 11/02/2024 (Approximate), Expires: 11/02/2025[facility] Work Phone: comment on above:Expected: 11/02/2024 (Approximate), Expires: 11/02/2025Start: 08-14-2024 End: 84-03-3369Terwcgm encounter /21/2025 10:10 AM EST Office Visit [facility] [address] [place] [address] Gena Escobar APRN-BRYSON [address] [place] [address] ArrivedNOOH SWS DERMComment on above: ArrivedStart: 07-11-2024 End: 40-34-9829Rylwypi encounter epcgkxxuw12/18/2024 9:25 AM EST Office Visit [facility] [address] [place] [address] Gena Escobar, GRE[employer] C[employer]TER-MEDICAL ADMINISTRATIVE ASSISTANT [address] [place] [address] [facility] SWS DERMStart: 07-05-2024 End: 71-95-0867Bbujjna aminotransferase [Enzymatic activity/volume] in Serum or PlasmaALT Lab Routine Tinea manus High risk medication use Expected: 07/05/2024 (Approximate), Expires: 06/14/2025[facility] Work Phone: comment on above:Expected: 07/05/2024 (Approximate), Expires: 06/14/2025Start: 07-05-2024 End: 51-96-0849Byyivwibe aminotransferase [Enzymatic activity/volume] in Serum or PlasmaAST Lab Routine Tinea manus High risk medication use Expected: 07/05/2024 (Approximate), Expires: 06/14/2025[facility] HealthcareComment on above: Expected: 07/05/2024 (Approximate), Expires: 06/14/2025Start: 06-14-2024 End: 90-41-9656Hggjmvz encounter procedureNOMS [facility] DERMComment on above:Arrived Start: 05-31-2024 End: 00-43-0518Tpzktnu aminotransferase [Enzymatic activity/volume] in Serum or PlasmaALT Lab Routine Tinea manus Expected: 05/31/2024 (Approximate), Expires: 05/31/2025[facility] Work Phone: comment on above:Expected: 05/31/2024 (Approximate), Expires: 05/31/2025Start: 05-31-2024 End: 80-45-6405Wauefsdid aminotransferase [Enzymatic activity/volume] in Serum or PlasmaAST Lab Routine Tinea manus Expected: 05/31/2024 (Approximate), Expires: 05/31/2025[facility] HealthcareComment on above:Expected: 05/31/2024 (Approximate), Expires: 05/31/2025Start: 05-31-2024 End: 64-03-9715Jyutzdh encounter procedureNOMS SWS DERMComment on above:Arrived Start: 05-17-2024 End: 35-99-4603Thvroti encounter procedureNOMS SWS DERMComment on above:Arrived Start: 05-07-2024 End: 20-46-9992Eemcrqi encounter uqyogmhhf44/14/2024 10:25 AM EDT Office Visit [facility] [address] [place] [address] Gena Escobar, GRE[employer] C[employer]TER-MEDICAL ADMINISTRATIVE ASSISTANT [address] [place] [address] ArrivedNOMS SWS DERMComment on above: ArrivedStart: 88-21-9364Egnmoydpt vaccinationInfluenza Vaccine (#1)[facility] HealthcareStart: 21-27-0626SfxhrsuloKnox Community Hospitaltart: 1960 Screening for malignant neoplasm of colonNOMS HealthcareDermatopathology exam Dermatopathology exam Pathology and Cytology Timed Rash and other nonspecific skin eruption ReleaseUpon Ordering for 1 Occurrences starting 05/07/2024[facility] Work Phone: comment on above:Release Upon Ordering for 1 Occurrences starting 05/07/2024ermatopathology examDermatopathology exam Pathology and Cytology Timed Neoplasm of unspecified behavior of bone, soft ti ssue, and skin Release Upon Ordering for 1 Occurrences starting 12/25/2024[facility] Work Phone: comment on above:Release Upon Ordering for 1 Occurrences starting 12/25/2024Patient referralOhiohealth [facility] Hospital Work Phone: Immunizations Immunization DateImmunizationNotesCare PdoebzlrEphblowr09-38-1210Vpluxuiixeqc Conjugate Vaccine, 20 valentBensteven Wheatley DO Work Phone: [facility]04-01-2021COVID-19 Vaccine Pfizer - Documentation Purposes OnlyBeirwin Wheatley Other [facility]03-11-2021COVID-19 Vaccine Pfizer - Documentation Purposes OnlyBensteven Wheatley Other [facility] Payers DatePayer CategoryPayerPolicy [id number] [facility] Member Subscriber Plan / Payer (Effective 2021-Present) Name: Matteo Hardy MemberID: [id number] Relation to Subscriber: Spouse Name: EMY HARDY Date of : 1965 (Home) Address: [address] [place] [id number] Payer ID: Not on file Type: Not on file Address: [address] [id number] [id number] 2..1.401530.3.57[id number] 2..1.500875.3.57[id number] 2..1.828858.3.57[id number] 2..1.377838.3.57[id number] 2..1.294086.3.57[id number] 2..1.712083.3.57[id number] 2..1.152247.3.579.[id number] 2.16.840.1.782234.3.57[id number] 2.16.840.1.132429.3.57[id number] 2.16.840.1.027705.3.57[id number] 2.0.1.127552.3.579.2.207151-50-1632CabjPeak Behavioral Health [id number] 2.0.1.255755.19Self-paySelf [id number] [id number] Social History DateTypeDetailFacilityUnknown if ever smokedF[place] [email or web address] Other Start: 05-26-2023 End: 28-14-6456Qnu Assigned At BirthF[place] [email or web address] Other Start: 83-10-1706Aolqbpy smoking status NHISSmoker (finding)[facility]tart: 68-49-6866Tju [facility]: 12-16-2022 End: 54-59-4407Rzntfgl smoking status NHISSmokes tobacco dailyNOMS Healthcare History of tobacco useCigarette SmokerNOMS HealthcareHistory of tobacco useCigar SmokerNOMS HealthcareHistory of tobacco usePassive smokerNOMS HealthcareStart: 05-26-2023 End: 88-50-2560Njvfigsuz beverage intakeCurrent drinker of alcohol (finding)[facility] HealthcareStart: 05-26-2023 End: 90-18-4969Uvakllylc beverage intakeNOMS HealthcareStart: 90-32-6345Xwohyck CommentdailyNOMS HealthcareStart: 80-43-7728Ycihob identityIdentifies as male gender (finding)[facility] HealthcareStart: 37-34-2313Dozcfr orientationHeterosexual (finding)[facility]Start: 10-18-2024 End: 65-38-9627AycOtcw (finding)[facility] Goals DatePatient GoalDesired Activity/State Clinical Notes 12-08-2021 to 03-13-2025 Note Date & KlvlAvnoXierqsbd44-93-1864 History of Present illness Narrative* Jen Reagan, DO - 03/13/2025 8:45 AM EDT Images from the original note were not included. Matteo Ontiveros Massimoritikaanitraabiola presents today for follow up on COPD. He was last seen a few months ago. Since his last office visit he did use Trelegy. However he has not notice much change in his breathing. He does still note some shortness breath with exertion. He does also have a cough. He does notice this mostly at night. He does not feel that the Trelegy is any different than the Wixela. He denies any current complaints of increasing shortness breath at rest or with exertion. He denies any chest pain,palpitations, fevers, chills, or recent unintentional weight changes. He does note some diaphoresiswhen he is exerting himself. He states that this does happen more so over last few years. He has discuss this with other providers in the past and he was told this was related to his age. However he is not discuss this much with his primary care provider. He does continue to smoke on a daily basis.He denies any other complaints at this time. Allergies: Allergies Allergen Reactions Penicillins Rash Ciprofloxacin Other Severe body aches Levofloxacin Itching Reports itching on palms and soles after 1 dose, no rash Moxifloxacin Itching Singulair [Montelukast] Unknown Cephalexin Rash Medications: Current Outpatient Medications: albuterol HFA 90 mcg/act inhaler, Inhale 1 puff every 4 (four) hours if needed, Disp: , Rfl: Ascorbic Acid (Vitamin C) 500 MG capsule, Take 1 tablet by mouth 1 (one) time each day, Disp: , Rfl: aspirin 81 MG EC tablet, Take 1 tablet by mouth Daily, Disp: , Rfl: esomeprazole (NexIUM) [address] capsule, Take 1 capsule by mouth in the morning. Take before meals.,Disp: , Rfl: fluticasone (Flonase) 50 MCG/ACT nasal spray, Administer 1 spray into each nostril Daily, Disp: , Rfl: Zttdikfypxu-Trdzjwpln-Adkztj (Trelegy Ellipta) 100-62.5-25 MCG/ACT aerosol powder , Inhale 1 puff Daily, Disp: 60 each, Rfl: 5 gentamicin (Garamycin) 0.1 % ointment, Apply to hands BID prn, Disp: 15 g, Rfl: 11 Roflumilast (Zoryve) 0.15 % cream, Apply 1 Application topically Daily as needed (apply to hands when flared, hold when clear), Disp: 60 g, Rfl: 11 tamsulosin (Flomax) 0.4 MG 24 hr capsule, , Disp: , Rfl: telmisartan-hydroCHLOROthiazide (MIcarDIS HCT) 40-12.5 MG tablet, Take 1 tablet by mouth Daily, Disp: , Rfl: Past Medical History: Past Medical History: Diagnosis Date Acute diverticulitis 01/07/2025 Allergic rhinitis, seasonal 01/07/2025 Chronic bronchitis (HCC) 01/07/2025 Chronic cough 01/07/2025 Chronic rhinitis Cough Family history of colon cancer in mother 01/07/2025 Problem List clean-up per request of Phys. ANGELITO Greenberg Gas bloat syndrome 01/07/2025 Gastroesophageal reflux disease GERD (gastroesophageal reflux disease) 01/07/2025 Hearing loss 10/23/2020 Hypertension 01/07/2025 Hypoxia 01/07/2025 Irritable bowel syndrome with constipation 01/07/2025 Multifocal pneumonia 01/07/2025 Nicotine addiction 01/07/2025 Screening PSA (prostate specific antigen) 01/07/2025 Vocal cord anomaly Wellness examination 01/07/2025 Social History: Social History Tobacco Use Smoking status: Every Day Current packs/day: 0.50 Types: Cigarettes, Cigars Passive exposure: Current Smokeless tobacco: Not on file Substance Use Topics Alcohol use: Yes Alcohol/week: 3.0 standard drinks of alcohol Types: 3 Standard drinks or equivalent per week Comment: daily Vitals: BP 138/76 Pulse 77 Wt 276 lb SpO2 95% BMI 36.41 kg/m Exam: Heart: regular rate Lungs: clear to auscultation bilaterally, no wheezes/rales/rhonchi, no resp distress Extremities: no edema noted, no visible rashes Neuro: alert, oriented x3 Imaging Reviewed: None Assessment/Plan: Diagnoses and all orders for this visit: Chronic obstructive pulmonary disease, unspecified COPD type (HCC) Cigarette smoker Hypersomnolence COPD -- at this time he did try to use Trelegy. He did not notice much change in his breathing. At this time we discussed switching Trelegy to Breztri. He was given samples at today's office visit. Aprescription will be sent to the pharmacy for him as well. He is instructed on the use of the inhaler. He will continue with using albuterol on an as needed basis as well. He will follow here in a few months time to reassess his symptoms with use of Breztri. Tobacco use -- he does continue to smoke on a daily basis. We did have a 4 minute discussion regarding the importance of smoking cessation at today's office visit. Hypersomnolence -- he does continue with symptoms consistent with sleep apnea. He does continue with snoring and apneas noted at night. He does not feel well rested upon wakening in the morning. We did have another discussion in regards to the possibility of sleep apnea. At this time he is willing to undergo a sleep study. He does not feel he would be able to tolerate a mask. We did have discussion regarding the possibility of inspire as an option but he would need a sleep study performed priorto that. Given his apneas and snoring as well as his excessive daytime sleepiness , he will have a sleep study performed prior to his next office visit. Diaphoresis -- he did note some sweating when he exerts himself. He denied any specific complaints of chest discomfort. At this time we discussed that this may be related to some heart disease. He states he underwent a stress test, however this has been many years ago. This time we discussed repeating a stress test versus discussing this further with his primary care provider. At this time he didwish to undergo evaluation with a sleep study prior to pursuing any further testing. Follow up in about 3 months (around 06/13/2025) for COPD. Jen Reagan DO documented in this encounterMelissa Ville [id number] History of Present illness Narrative* Jen Reagan, DO - 01/16/2025 9:00 AM EDT Images from the original note were not included. Matteo Hardy presents today for Evaluation in regards to chronic bronchitis / cough. He was referred by his primary care provider. He is accompanied by his at today's office visit. He had previously been seen by shoe worker many years ago for latent TB infection. He was not placed on any medications at that time. He states he has also been evaluated by Infectious Disease in regards to this. It was felt that the patient did not require any treatment at that time unless he has to start any immunomodulator medications. He does complain of a cough and mucus production. His states that this does occur off and on. He states when he is able to expectorate secretions these are generally clear in nature. He did not feel that he any difficulty with his breathing or cough until he had COVID many years ago. Ever since that time his breathing has suffered. He was diagnosed with pneumonia and hospitalized in June. He was discharged home on oxygen and antibiotics/steroids. He has since been able to wean off oxygen and this has been discontinued. He does note some occasions ofshortness of breath with exertion. He currently uses Wixela, however states only often uses this atnight as he often forgets his 2nd dose. He does have albuterol he uses on an as needed basis as well. He does continue to smoke. Currently smokes 3-4 cigarettes a day. He has smoked for over 40 years. He does also have some snoring and apneas. He does not feel well rested upon wakening in the morning. He has been to ENT with his complaints of a cough and was not found to have any etiology relatedto sinuses, etc.. He denies any other complaints at this time. Allergies Allergen Reactions Penicillins Rash Ciprofloxacin Other Severe body aches Levofloxacin Itching Reports itching on palms and soles after 1 dose, no rash Moxifloxacin Itching Singulair [Montelukast] Unknown Cephalexin Rash Current Outpatient Medications Medication Sig Dispense Refill albuterol HFA 90 mcg/act inhaler Inhale 1 puff every 4 (four) hours if needed Ascorbic Acid (Vitamin C) 500 MG capsule Take 1 tablet by mouth 1 (one) time each day aspirin 81 MG EC tablet Take 1 tablet by mouth Daily esomeprazole (NexIUM) [address] capsule Take 1 capsule by mouth in the morning. Take before meals. fluticasone (Flonase) 50 MCG/ACT nasal spray Administer 1 spray into each nostril Daily Pqsxdaxnugz-Rahqikolv-Flovef (Trelegy Ellipta) 100-62.5-25 MCG/ACT aerosol powder Inhale 1 puff Daily 60 each 5 gentamicin (Garamycin) 0.1 % ointment Apply to hands BID prn 15 g 11 Roflumilast (Zoryve) 0.15 % cream Apply 1 Application topically Daily as needed (apply to hands when flared, hold when clear) 60 g 11 tamsulosin (Flomax) 0.4 MG 24 hr capsule telmisartan-hydroCHLOROthiazide (MIcarDIS HCT) 40-12.5 MG tablet Take 1 tablet by mouth Daily No current facility-administered medications for this visit. Past Medical History: Diagnosis Date Acute diverticulitis 01/07/2025 Allergic rhinitis, seasonal 01/07/2025 Chronic bronchitis (HCC) 01/07/2025 Chronic cough 01/07/2025 Chronic rhinitis Cough Family history of colon cancer in mother 01/07/2025 Problem List clean-up per request of PhysDomenico Greenberg Gas bloat syndrome 01/07/2025 Gastroesophageal reflux disease GERD (gastroesophageal reflux disease) 01/07/2025 Hearing loss 10/23/2020 Hypertension 01/07/2025 Hypoxia 01/07/2025 Irritable bowel syndrome with constipation 01/07/2025 Multifocal pneumonia 01/07/2025 Nicotine addiction 01/07/2025 Screening PSA (prostate specific antigen) 01/07/2025 Vocal cord anomaly Wellness examination 01/07/2025 Past Surgical History: Procedure Laterality Date APPENDECTOMY 1999 TONSILLECTOMY 12/08/2021 - DML w/ biopsy / excision cyst of vallecula Family History Problem Relation Name Age of Onset Cancer Mother Cancer Father Cancer Maternal Grandmother Diabetes Maternal Grandfather Diabetes Paternal Grandfather Social History Tobacco Use Smoking status: Every Day Current packs/day: 0.50 Types: Cigarettes, Cigars Passive exposure: Current Smokeless tobacco: Not on file Substance Use Topics Alcohol use: Yes Alcohol/week: 3.0 standard drinks of alcohol Types: 3 Standard drinks or equivalent per week Comment: daily BP 132/82 Pulse 94 Wt 276 lb SpO2 95% BMI 36.41 kg/m Exam: Heart: regular rate Lungs: clear to auscultation bilaterally, no wheezes/rales/rhonchi, no resp distress Extremities: no edema noted, no visible rashes Neuro: alert, oriented x3 Imaging Reviewed: PFT's from December 2024 reviewed - - FVC 4.44 L ( 85 %), FEV1 2.65 L (57 %), ratio 60 %, significant bronchodilator response, air trapping and hyperinflation present, normal DLCO Images and report of CT chest from October 2024 reviewed - - resolution of previously noted infiltrate, no acute cardiopulmonary disease Assessment/Plan: COPD -- we did review the results of his PFTs. He does have evidence of obstructive changes. He currently is using Wixela, but only uses this on average once per day. He states he often forgets to take the 2nd dose. He does use albuterol on as needed basis. At this time he does not feel Wixela has helped much with his breathing. He had been on Advair as well in the past. At this time we discussedadjusting his maintenance regimen. He was given samples and a prescription of Trelegy at today's office visit. He will continue with using this once daily. He will brushes teeth differences mouth outafter he uses this. He will also continue with albuterol on an as needed basis. He will follow here in a few months time to reassess his symptoms. Tobacco use -- he does continue to smoke on a daily basis. We did discuss the importance of smokingcessation at today's office visit. We did have a 4 minute discussion. Hypersomnolence -- clinically he does have some findings consistent with sleep apnea. He does have excessive daytime sleepiness, witnessed apneas, and snoring at night. The often time does not feel well rested upon wakening in the morning. At this time we did have a discussion in regards to sleep apnea. His states that his son was recently diagnosed as well and does tolerate use of CPAP. At this time he is not interested in proceeding with a sleep study, however we can discuss this furtherat his next office visit. He will follow here in a few months time to reassess his symptoms with the addition of Trelegy. Follow up in about 2 months (around 03/18/2025) for COPD. Jen Reagan DO documented in this encounterTenet St. [id number] Evaluation note* Diagnosis Onset Date Resolution Status Admit Date Xerosis of skin acuteJune 2024 1:46pmIrritable bowel syndrome with constipationacuteJuly 2024 9:19am [facility] Work Phone: 1(386) 435-498806-03-2025 History of Present illness Narrative* Rudolph Toro MD - 12/25/2024 11:00 AM EDT [...] limited to risks of scarring, darker or cane flume watchman pigmentary changes, recurrence, incomplete removal and infection. [...] Disease Next Visit: prn documented in this encounterTenet St. [id number] Telephone encounter Note* Telephone Encounter - Jourdan Terence - 12/18/2024 11:55 AM EDT Hi, this is Dub Negra Brewer, I am calling for my Matteo Brewer. date is 1959. He has an appointment at the [facility] [facility] on january 16. To see Dr ray was supposed to have got a PFT in [place]. But apparently the machine's been broken. So they were to have transferred everything over to [facility] so he could have it done and I just talked to [place], they have not received any of that. So I do not know if your office needs to do it or I need to call back to the clinicthat does the pulmonary function testing and dusk and have them Redo it, but like to see if we can get him set up in [facility] to have a pulmonary function test before he sees Dr. Ray appreciate if you could call me back at [phone], thank you. [facility] [id number] Miscellaneous Notes* Telephone Encounter - Jourdan Pratt - 12/18/2024 11:55 AM EDT Hi, this is Dub Negra Brewer, I am calling for my Matteo Brewer. date is 1959. He has an appointment at the [place] [facility] on january 16. To see Dr ray was supposed to have got a PFT in [place]. But apparently the machine's been broken. So they were to have transferred everything over to [facility] so he could have it done and I just talked to [place], they have not received any of that. So I do not know if your office needs to do it or I need to call back to the clinicthat does the pulmonary function testing and dusk and have them Redo it, but like to see if we can get him set up in [facility] to have a pulmonary function test before he sees Dr. Ray appreciate if you could call me back at [phone], thank you. documented in this encounterTenet St. [id number] Chief complaint+Reason for visit Narrative* Chief Complaint Admit Date Referral Order November 09, 2024 1:[address] Toro January 07, 2025 1 :46pm Left sided abdominal pain January 29, 2025 9:19am Reason for Visit Admit Date Xerosis of skin January 07, 2025 1:46 pm Irritable bowel syndrome with constipati on January 29, 2025 9:19am [facility] Work Phone: 1(360) 868-527804-11-2025 History of Present illness Narrative* Sterling Cardona, DO - 11/02/2024 9:00 AM EDT Subjective Patient ID: Emanuel Hardy is a [...] congestion of the nose. Frequent coughing and clearingof his throat. Continues to smoke cigarettes. Denies [...] THE LUNGS TWICE A DAY FOR 30 DAYS,Disp: , Rfl: albuterol HFA 90 mcg/act inhaler, [...] A DAY NEEDED FOR 30 DAYS, Disp: ,Rfl: esomeprazole (NexIUM) [address] capsule, Take 1 capsule by mouth in the morning. Take before meals.,Disp: , Rfl: fluticasone (Flonase) 50 MCG/ACT nasal spray, Administer 1 spray into each nostril in the morning.,Disp: , Rfl: gentamicin (Garamycin) 0.1 % ointment, [...] limits, ear canals are patent, tympanic membranes areintact. Nose: External nose unremarkable, nares patent, septum [...] Generalized erythema is noted without ulceration. This isvery limited Bilateral vocal cords have good motion. [...] meal of the day documented in this encounterTenet St. [id number] Chief complaint+Reason for visit Narrative* Chief Complaint Admit Date groin pain October 17, 2024 3:3 8pm Referral Order November 09, 2024 1:1 1pm Reason for Visit Admit Date Acute diverticulitis October 17, 2024 3: 38pm Allergic rhinitis, seasonal October 17, 2024 3:38pm Irritable bowel syndrome with constipati on October 17, 2024 3:38pm [facility] Work Phone: 1(449) 631-527603-26-2025 Evaluation note* Diagnosis Onset Date Resolution Status Admit Date Acute diverticulitis acuteMarch 2024 3:38pmAllergic rhinitis, seasonalacuteMar 2024 3:38pmIrritable bowel syndrome with constipationacute[facility] 3:38pm [facility] Work Phone: 1(932) 438-660801-21-2025 History of Present illness Narrative* Gena Escobar, JARED-MEDICAL ADMINISTRATIVE ASSISTANT - 08/14/2024 10:10 AM EST Images from [...] Next Visit: 1 year documented in this encounterTenet St. [id number] Evaluation note* Diagnosis Onset Date Resolution Status Admit Date Hypertension acuteJanuary 2024 10:05amAcute bronchitis due to other specified organisms noneactiveJanuary 2024 10:05amAcute exacerbation of chronic obstructive airways diseasenoneactiveJanuary 2024 10:05amAcute diverticulitisacute October 17, 2024 3:38pmAllergic rhinitis, seasonalacuteMarch 2024 3:38pm Irritable bowel syndrome with [facility]ipationacute[facility] 3:38pm [facility] Work Phone: 1(462) 198-333311-21-2024 Telephone encounter Note* Telephone Encounter - CONSTANCE Pedraza - 06/14/2024 10:24 AM EST Patient seen today in office. Would like to add Cipro 750mg BID x 10 days since I am questioning ifDoxycycline only cured one of the bacterial growths. Please check interactions [facility] [id number] Miscellaneous Notes* Telephone Encounter - CONSTANCE Pedraza - 06/14/2024 10:24 AM EST Patient seen today in office. Would like to add Cipro 750mg BID x 10 days since I am questioning ifDoxycycline only cured one of the bacterial growths. Please check interactions documented in this encounterTenet St. [id number] History of Present illness Narrative* CONSTANCE Pedraza [...] Next Visit: 1 month documented in this encounterTenet St. [id number] History of Present illness Narrative* CONSTANCE Pedraza [...] days 2. Actinic keratosis (4) Left [place], Mid [place] Lip (2), Right [place] Erythematous scaly papules. Patient was counseled regarding [...] limited to risks of scarring, darker or cane flume watchman pigmentary changes, recurrence, incomplete removal and infection. [...] tenderness Cryotherapy, skin lesion - Left [place], Mid [place] Lip (2), Right [place] 3. Other atopic dermatitis Left Hand - Posterior Scaly erythematous plaques +/- dyspigmentation, lichenification, excoriations. Improved since last visit Continue Protopic as prescribed Next Visit: 2 weeks documented in this encounterTenet St. [id number] History of Present illness Narrative* CONSTANCE Pedraza [...] Next Visit: 2 weeks documented in this [facility]10-14-2024 History of Present illness Narrative* LEXIE PedrazaBRYSON - 05/07/2024 10:25 AM EDT Images from [...] other nonspecific skin eruption Left Dorsal Hand [place] patches and plaques Vikor tissue culture taken [...] Visit: 10 days S/R documented in this encounterTenet St. LouisKtinvqvzww06-54-4589 History and physical note Author Axel Briggs [facility] November 28, 2023 10:09amNote Date/TimeMay 2023 10:10[place] [address] Gastroenterology H&P Signed Patient: Matteo Hardy MR#: [id number] : 1960 Acct:[id number] Age/Sex: 63 / M Adm Date: 4 Loc: Room: Type: [facility] Attending Dr: Axel Briggs MD Copies to: DO Axel Denis MD~ Date of Service: 11/28/2023 HISTORY & PHYSICAL: Patient's history with special attention to the cardiovascular, pulmonary systems and the current problem was reviewed with the patient immediately prior to the procedure. Present medications and doses reviewed in the EMR. Allergies and pertinent laboratory tests were also re viewedat this time in the EMR. The physical [...] MD Documented By: Axel Briggs MD 11/28/23 1009 Signed By: <Electronically signed by Axel Briggs MD> 11/28/23 1009 [facility] Work Phone: 1(721) 651-566805-06-2024 [facility] Evaluation note* Encounter Date Diagnosis Assessment Notes Treatment Notes Treatment Clinical Notes Aug, COVID-19 (ICD-10 - U07.1) Aware of quarantine guidelines. Recommend Paxlovid. Hold Rosuvastatin and Tamsulosin Instructed to use Robitussin or Mucinex for cough, saline or Flonase NS for congestion, Tylenol forpain and fever. Self isolate at home. - [...] in public places for complete 10 days Aug,hronic obstructive pulmonary disease with (acute) lower respiratory infection (ICD-10 - J44.0)Instructed to use Robitussin or Mucinex for cough, saline or Flonase NS for congestion, Tylenol forpain and fever. [facility] Other 02-01-2024 Evaluation note* Encounter Date Diagnosis Assessment Notes Treatment Notes Treatment Clinical Notes Aug, Acute non-recurrent maxillary si nusitis (ICD-10 - J01.00) Instructed to use Robitussin or Mucinex for cough, saline or Flonase NS for congestion, Tylenol forpain and fever. Aug,Irritable bowel syndrome with constipation (ICD-10 - K58.1)Increase dietary fiber and fluids [facility] [facility] Other 10-23-2023 Evaluation note* Encounter Date Diagnosis Assessment Notes Treatment Notes Treatment Clinical Notes Apr, Latent tuberculosis by blood sher t (ICD-10 - Z22.7) No symptoms. If Skyrizi [...] 2 to 3 weeks after beginning it. [facility] [facility] Other 10-20-2023 Evaluation note* Encounter Date Diagnosis Assessment Notes Treatment Notes Treatment Clinical Notes Apr, Mucopurulent chronic bronchitis (ICD-10 - J41.1) Continue trial of Advair Instructed to use KATHRYN as needed Not sure any better w/o Advair, may trial Anoro Avoid smoke, dust and allergens Apr,Elevated cholesterol (ICD-10 - E78.00)Instructed on diet and exercise with continued statin therapy.Discussed the beneficial effects of lo wering cholesterol in reducing the risk for cerebrovascular and cardiovascular disease. Apr,astroesophageal reflux disease with esophagitis without hemorrhage (ICD-10 - K21.00)Diet instructions: Smaller portions, avoid eating and laying flat, avoid eating or drinking prior to bedtime. Weight loss. 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 They are instructed to reduce calories, portion sizes and snacks. It is recommended that they exercise for 30 minutes, 3-5 times weekly. Apr,ody mass index [BMI] 36.0-36.9, adult (ICD-10 - Z68.36) [facility] Other 09-27-2023 Evaluation note* Encounter Date Diagnosis Assessment Notes Treatment Notes Treatment Clinical Notes Mar, Mucopurulent chronic bronchitis (ICD-10 - J41.1) [facility] [facility] Other 09-07-2023 Evaluation note* Encounter Date Diagnosis Assessment Notes Treatment Notes Treatment Clinical Notes Mar, Dyspnea on exertion (ICD-10 - R0 6.09) Mar,Tobacco dependence (ICD-10 - F17.200) Mar,ost COVID-19 condition, unspecified (ICD-10 - U09.9) [facility] Other 07-05-2023 Evaluation note* Encounter Date Diagnosis Assessment Notes Treatment Notes Treatment Clinical Notes Jan, Wellness examination (ICD-10 - Z 00.00) [facility] [facility] Other 05-08-2023 Evaluation note* Encounter Date Diagnosis Assessment Notes Treatment Notes Treatment Clinical Notes November, GERD (gastroesophageal reflux di sease) (ICD-10 - K21.9) Diet instructions: Smaller portions, avoid eating and laying flat, avoid eating or drinking prior to bedtime. Weight loss. November,Vocal cord anomaly (ICD-10 - Q31.8)f/u ENT November,History of Boothe's esophagus (ICD-10 - Z87.19) [facility] [facility] Other 05-08-2023 Evaluation note* Encounter Date Diagnosis Assessment Notes Treatment Notes Treatment Clinical Notes November, GERD (gastroesophageal reflux di sease) (ICD-10 - K21.9) Diet instructions: Smaller portions, avoid eating and laying flat, avoid eating or drinking prior to bedtime. Weight loss. 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 f/u ENT November,History of Boothe's esophagus (ICD-10 - Z87.19) [facility] Other 03-10-2023 Evaluation note* Encounter Date Diagnosis Assessment Notes Treatment Notes Treatment Clinical Notes Sep, Campylobacter gastroenteritis (I CD-10 - A04.5) Monitor for s/s recurrence. Treatment would be diet, hydration and azithromycin Sep,KI (acute kidney injury) (ICD-10 - N17.9)Hydrate, avoid NSAIDs Sep,ehydration (ICD-10 - E86.0)Hydrate [facility] Other 03-06-2023 Evaluation note* Encounter Date Diagnosis Assessment Notes Treatment Notes Treatment Clinical Notes Sep, Diarrhea, unspecified type (ICD- 10 - R19.7) [facility] Other 03-03-2023 Evaluation note* Encounter Date Diagnosis Assessment Notes Treatment Notes Treatment Clinical Notes Sep, Diarrhea of presumed infectious origin (ICD-10 - R19.7) Diet instructions reviewed. _update on Tuesdaybdominal cramping (ICD-10 - R10.9)Continue Dicyclomine. ER for increased pain, N/V/D [facility] Other 02-13-2023 Evaluation note* Encounter Date Diagnosis Assessment Notes Treatment Notes Treatment Clinical Notes Aug, Acute bronchitis due to other sp ecified organisms (ICD-10 - J20.8) Instructed to use Robitussin or Mucinex for cough, saline or Flonase NS for congestion, Tylenol forpain and fever. Aug,igarette nicotine dependence without complication (ICD-10 - F17.210)This patient has been encouraged to quit tobacco use immediately. They are aware of the hazards associated with tobacco use, including but not limited to respiratory infections, vascular disease and cancers. [facility] Other 11-03-2022 Evaluation note* Encounter Date Diagnosis Assessment Notes Treatment Notes Treatment Clinical Notes May, Bloating (ICD-10 - R14.0) [facility] Other 10-31-2022 Evaluation note* Encounter Date Diagnosis Assessment Notes Treatment Notes Treatment Clinical Notes Apr, Enteritis (ICD-10 - K52.9) Apr,bdominal pain (ICD-10 - R10.9) [facility] Other 09-27-2022 Evaluation note* Encounter Date Diagnosis Assessment Notes Treatment Notes Treatment Clinical Notes Mar, Bloating (ICD-10 - R14.0) Mar,GERD (gastroesophageal reflux disease) (ICD-10 - K21.9)Increase Nexium to 40mg twice daily Mar,yspepsia (ICD-10 - K30) Mar,onstipation (ICD-10 - K59.00)Start Miralax powder daily. Titration dosing discussed with patient. Mar,hange in stool caliber (ICD-10 - R19.4) Mar,Left sided abdominal pain (ICD-10 - R10.9)Continue Dicyclomine prn [facility] Other 07-20-2022 Evaluation note* Encounter Date Diagnosis Assessment Notes Treatment Notes Treatment Clinical Notes Jan, Left sided abdominal pain (ICD-1 0 - R10.9) Jan,lternating constipation and diarrhea (ICD-10 - R19.8) [facility] Other 05-17-2022 History general Narrative - Reported* Type Description Date Medical History HYPERLIPIDEMIA Medical HistorySTOMACH PROBLEMS SINCE APPENDIX BURSTSurgical Historyappendectomy 1998Surgical Historybenign polpy removed from tongue and vocal cords12/08/2021 [facility] Other 05-17-2022 History general Narrative - Reported* Type Description Date Medical History HYPERLIPIDEMIA Medical HistorySTOMACH PROBLEMS SINCE APPENDIX BURSTSurgical Historyappendectomy 1998Surgical Historybenign polpy removed from tongue and vocal cords12/08/2021 Hospitalization HistorySEE SURGICAL [facility] Other 05-17-2022 History general Narrative - Reported* Type Description Date Medical History HYPERLIPIDEMIA Medical HistorySTOMACH PROBLEMS SINCE APPENDIX BURSTMedical History diverticulitisSurgical [id number] Historybenign polpy removed from tongue and vocal cords12/08/2021Hospitalization HistorySEE SURGICAL [facility] Other 05-17-2022 History general Narrative - Reported* Type Description Date Medical History HYPERLIPIDEMIA Medical HistorySTOMACH PROBLEMS SINCE APPENDIX BURSTMedical History diverticulitisSurgical [id number] Historybenign polpy removed from tongue and vocal cords2Surgical Historycyst removed from back of tongueHospitalization HistorySEE SURGICAL HX [facility] [employer] Other Evaluation noteNo InformationNortJames E. Van Zand[facility] [employer] Other Evaluation noteNo assessment information available [facility] Work Phone: Evaluation note* Diagnosis Rash and [...] Dermatophytosis of hand [facility] Diagnosis Chronic cough- Primary Cough Chronic rhinitis Tobacco abuse Tobacco use disorder Laryngopharyngeal reflux (LPR) [facility]* Diagnosis Tinea manuum- Primary Dermatophytosis of hand Skin tag Unspecified hypertrophic and atrophic condition of skin Neoplasm of unspecified behavior of bone, soft tissue, and skin Actinic keratosis [facility]* Diagnosis Chronic obstructive pulmonary disease, unspecified COPD type (HCC)- Primary Cigarette smoker Tobacco use disorder [facility] Diagnosis Chronic obstructive pulmonary disease, unspecified COPD type (HCC)- Primary Cigarette smoker Tobacco use disorder Hypersomnolence Hypersomnia, unspecified [facility]* Diagnosis Onset Date Resolution Status Admit Date GERD (gastroesophageal reflux disease) acuteOctober 2024 10:33amIBS (irritable bowel syndrome)acuteOctober 2024 10:33amIrritable bowel syndrome with constipationacuteOctober 2024 10:33amObesityacuteOctober 2024 10:33amScreening PSA (prostate specific antigen)acuteOctober 2024 10:33amWellness examinationacuteOctober 2024 10:33am [facility] Work Phone: Hospital Discharge instructions Additional Instructions DISCHARGE INSTRUCTIONS FOR [...] NOT operate machinery such as power tools, lawn mowers, snow blowers, sewing machines, etc. for [...] years. -Follow up with PCP. -Office number [phone].[facility] Work Phone: Hospital Discharge instructionsAmbulatory Orders* Referral to Pulmonology Location: None Selected [facility] Work Phone: Reason for referral (narrative)No reason for referral information availableFirelands Regional Med [facility] Work Phone: Reason for visit Narrative* Consultation (Routine) - ClosedSpecialtyDiagnoses / ProceduresReferred By ContactReferred To Contact Pulmonary Disease / Pulmonology Diagnoses Unspecified chronic bronchitis (HCC) Chronic cough Procedures ME UNLISTED EVALUATION [employer] MANAGEMENT SERVICE [facility] [address] [place] [address] Jen Reagan, DO [address] [place] [address] Phone: tel: fax: Referral IDStatusReasonStart DateExpiration DateVisits RequestedVisits [id number] [facility] Healthcare Summary Purpose Family History Relationship Condition Age at Onset Recorded Date/T nash Not Specified Colorectal cancer Unknown fatherLeukemiaUnknown Relationship Condition Age at Onset Recorded Date/T nash mother Colorectal cancer Unknown fatherLeukemiaUnknown Advance Directives Advance Directive Response Recorded Date/ [...] with constipati on October 17, 2024 3:38pm Chief Complaint Admit Date Wellness May 07, 2025 1 0:33am Reason for Visit Admit Date GERD (gastroesophageal reflux disease) O ctober 2024 10:33am IBS (irritable bowel syndrome) April 242024 10:33am Irritable bowel syndrome with constipati on May 07, 2025 10:33am Obesity May 07, 2025 1 0:33am Screening PSA (prostate specific antigen ) May 07, 2025 10:33am Wellness examination May 07, 2025 10:33am Additional Source Comments (unrecognized sect ion and content) No Status Records FoundNo Status Records FoundNo Status Records FoundNo Status Records Found INFORMATION SOURCE (unrecogn ized section and content) DATE CREATED AUTHOR 02/12/2022 [facility] Managed Care Manager DATE CREATED AUTHOR AUTHOR'S ORGANIZ ATION 10/01/2022 [facility] DATE CREATED AUTHOR AUTHOR'S ORGANIZ ATION 12/04/2023 [facility] DATE CREATED AUTHOR AUTHOR'S ORGANIZ ATION 01/17/2025 [facility] EPIC REASON FOR VISIT (unrecogniz ed section and content) ReasonCommentsRashReasonCommentsSuture / Staple RemovalFollow-upReasonComments Follow-upSkin CheckReasonCommentsFollow-upReasonCommentsCoughCough / sore throat ReasonCommentsSuspicious Skin Lesion Care Teams (unrecognized sec tion and content) Team Status: Active Member Role Status Dates Mark Wheatley DO Primary Care Provider Active Team Status: Inactive Member Role Status Dates Mark Wheatley DO Primary Care Provider Active Start: May 07, 2025 End: May 07ensteven Wheatley DOAttending ProviderActiveStart: May 07, 2025 End: May 07, 2025 Team Status: Active Member Role Status Dates Mark Wheatley DO Primary Care Provider Active Team Status: Active Member Role Status Dates Mark Wheatley DO Primary Care Provider Active Start: November 09, 2024 Mark Wheatley DOAttnadia ProviderActiveStart: November 09, 2024 Team Status: Active Member Role Status Dates Mark Wheatley DO Primary Care Provider Active Start: December 31, 2024 Outside ProviderAttending ProviderActiveStart: December 31, 2024 Team Status: Inactive Member Role Status Dates Mark Wheatley DO Primary Care Provider Active Start: January 07, 2025 End: January 07, 2025Micnegro Bella MDAttnadia ProviderActiveStart: January 07, 2025 End: January 07, 2025 Team Status: Inactive Member Role Status Dates Mark Wheatley DO Primary Care Provider Active Start: January 29, 2025 End: January 29, 2025Joanna De Leon ProviderActiveStart: January 29, 2025 End: January 29, 2025 Team Status: Inactive Member Role Status Dates Mark Wheatley DO Primary Care Provider Active Start: November 28, 2023 End: November 27Alex Oliveira ProviderActiveStart: November 28, 2023 End: November 28, 2023 Team Status: Active Member Role Status Dates Mark Wheatley DO Primary Care Provider Active Start: November 28, 2023 Alex Zamora Provider, Other ProviderActiveStart: November 28, 2023 Team MemberRelationshipSpecialtyStart DateEnd Date Mark Wheatley MD [address] [facility] [place] [phone] PCP - GeneralInternal Medicine11/29/22am MemberRelationshipSpecialtyStart Date End Date Mark Wheatley MD [address] [facility] [place] [phone] PCP - GeneralInternal Medicine11/29/22am MemberRelationshipSpecialtyStart Date End Date Mark Wheatley MD [address] [facility] [place] [phone] PCP - GeneralInternal Medicine11/29/22am MemberRelationshipSpecialtyStart Date End Date Mark Wheatley MD [address] [facility] [place] [phone] PCP - GeneralInternal Medicine11/29/22am MemberRelationshipSpecialtyStart Date End Date Mark Wheatley MD [address] [facility] [place] [phone] PCP - GeneralInternal Medicine11/29/22Team MemberRelationshipSpecialtyStart Date End Date Mark Wheatley MD [address] [facility] [place] [address] PCP - GeneralInternal Medicine11/29/22Team MemberRelationshipSpecialtyStart Date End Date Mark Wheatley MD [address] [facility] [place] [address] PCP - GeneralInternal Medicine11/29/22Team MemberRelationshipSpecialtyStart Date End Date Mark Wheatley MD [address] [facility] [place] [phone] PCP - GeneralInternal Medicine11/29/22Team MemberRelationshipSpecialtyStart Date End Date Mark Wheatley MD [address] [facility] [place] [address] PCP - GeneralInternal Medicine11/29/22Team MemberRelationshipSpecialtyStart Date End Date Mark Wheatley MD [address] [facility] [place] [address] PCP - GeneralInternal Medicine11/29/22 Team Status: Inactive Member Role Status Dates Mark Wheatley DO Primary Care Provide r, Attending Provider Active Start: August 09, 2024 End: August 09, 2024 Team Status: Inactive Member Role Status Dates Mark Wheatley DO Primary Care Provide r, Attending Provider Active Start: October 17, 2024 End: October 17, 2024Team MemberRelationshipSpecialtyStart DateEnd Date Mark Wheatley MD [address] [facility] [place] [phone] PCP - GeneralInternal Medicine11/29/22Team MemberRelationshipSpecialtyStart Date End Date Mark Wheatley MD PCP - GeneralInternal Medicine11/29/22 Team Status: Active Member Role Status Dates Mark Wheatley DO Primary Care Provide r, Attending Provider Active Start: October 25, 2024 Team Status: Active Member Role Status Dates Mark Wheatley DO Primary Care Provide r, Attending Provider Active Start: November 09, 2024 Team MemberRelationshipSpecialtyStart DateEnd Date Mark Wheatley DO [address] [place] [address] PCP - GeneralInternal Medicine11/15/24Team MemberRelationshipSpecialtyStart Date End Date Mark Wheatley DO [address] [place] [address] PCP - GeneralInternal Medicine11/15/24Team MemberRelationshipSpecialtyStart Date End Date Mark Wheatley DO [address] [place] [address] PCP - GeneralInternal Medicine11/15/24Team MemberRelationshipSpecialtyStart Date End Date Mark Wheatley DO [address] [place] [address] PCP - GeneralInternal Medicine11/15/24Team MemberRelationshipSpecialtyStart Date End Date Mark Wheatley DO [address] [place] [phone] PCP - GeneralInternal Medicine11/15/24 Team Status: Inactive Member Role Status Dates Mark Wheatley DO Primary Care Provider Active Start: May 07, 2025 End: May 07enEl Barros ProviderActiveStart: May 07, 2025 End: May 07, 2025 Goals (unrecognized section and content) Goals may [...] BE BASED ON THE PRIMARY CLINICAL RECORDS. [facility] [employer] provides no warranty or guarantee of the accuracy or completeness of information in this document.
--- NOTE | 2025-05-16 08:35 | NM_ITS ---
Patient Name: ALLYSON FARMER MR#: [id number] : 1960 Exam Date: 05/16/2025 Ordering Doctor: DR TOBIN WHEATLEY D.O. RADIOLOGY REPORT PROCEDURE: NM NÉSTOR PERF SPECT REST STR COMPARISON: None. INDICATIONS: SHORTNESS OF BREATH, HYPERTENSION, CHEST PAIN TECHNIQUE: Exam Description: Stress/Rest two day protocol gated SPECT Rest Imagin.8 mCi Tc-99m Cardiolite IV on 05/16/2025 Stress Imaging 25.1 mCi Tc-99m Cardiolite IV on 05/17/2025 Exercise Protocol: 0.4 mg Lexiscan given IV Heart Rate (bpm): Rest: 74 Max: 133 PMHR: 85 Blood Pressure: Rest: 126/74 Max: 168/88 Exercise Time: Minutes: 6 Seconds: 17 Stage Reached: Stage: 3 Mets 7.8 Symptoms: Rest and peak stress ECG findings were pending and the exercise portion of the study was pending per attending physician [facility] . For more details please see separate cardiac stress test report. FINDINGS: Normal perfusion study QUALITY OF STUDY: Good PERFUSION DEFECT: None LOCATION: SIZE: SEVERITY: TYPE: WALL MOTION: Normal LV SIZE: 124 mL. TID / TCD: 0.9 LVEF: Calculated EF 62%. SUMMARY: Normal Myocardial perfusion imaging study CONCLUSION: -No ischemia is noted in myocardial perfusion stress study. -Normal myocardial perfusion study. -Normal global left ventricular function -No transient ischemic dilatation. -ECG Stress will be reported separately Dictated by: Sandra Pringle MD on 05/17/2025 at 15:41 Approved by: Sandra Pringle MD on 05/17/2025 at 15:54
== END 2025-05-16 08:25 | disposition home or self-care (01) ==
LOC: NM 08:24
PROVIDERS: PCP Internal Medicine; Visit Provider Internal Medicine
DX: E78.00 Pure hypercholesterolemia, unspecified (principal); I10 Essential (primary) hypertension; F17.211 Nicotine dependence, cigarettes, in remission; R07.9 Chest pain, unspecified
CPT/HCPCS: 78452; A9500

== ENCOUNTER 2025-05-17 08:40 | Outpatient (OUT) | payer BC, SELFPAY ==
--- OUTSIDE RECORDS SUMMARY | 2025-05-17 08:54 | XMS_ITS | CCD ---
Author Organization [facility] Care Team Providers Care Machine Engineer Name Role Phone Axel Briggs Unavailable Terra Connor Unavailable Mark Wheatley Unavailable DR MARK WHEATLEY Primary Care Unavailable MCMILLAN ., DR RENETTA Agee Attending Unavailable MCMILLAN ., DR RENETTA Agee Admitting Unavailable MCMILLAN ., DR RENETTA Agee Consulting Unavailable KATDANA CUENCA Consulting Unavailable SISTER, SU Consulting Unavailable [facility] [place] DIXON Attending Unavailable CORRY, DR FLORES Primary Care Unavailable INDEPENDENCE, DR TERRA Landers Consulting Unavailable MISC, DR DIXON Admitting Unavailable AXEL BRIGGS Consulting Unavailable CORRY, DR FLORES Primary Care Unavailable DULCE, DR ESQUIVEL Attending Unavailable DULCE, DR ESQUIVEL Admitting Unavailable DULCE, DR ESQUIVEL Consulting Unavailable Mulugeta Bella Unavailable DO Mark Wheatley Primary Care Provider MD Axel Briggs Attending Provider Axel Briggs [...] Unavailable Mark Wheatley DO Primary Care Provider [phone] Mark Wheatley DO Attending Provider Provider, Outside Attending Provider Unavailable Mulugeta Bella MD Attending Provider [phone] Aditya Baird APRN Attending Provider Mark Wheatley DO Primary Care Provider Mark Wheatley DO Attending Provider Allergies Allergy ClassificationReported Allergen(s)Allergy TypeDate of OnsetReaction(s) Facility (20 sources)moxifloxacinDrug Yiwpcrv05-98-7932MogcgnkPtlhpjtafPremier Health [facility] (20 sources)CephalexinDrug Qjceoxc09-25-2885HxopFxiykonwjMercy Health [facility] (4 sources)Allergies ReconciledPropensity to adverse reactionsLandmark Medical Center [employer] Other (4 sources)patient allergy list reviewed by nurse or physiciaPropensity to adverse maxyocnro16-08-9940Xehqimg:[facility] [employer] Other (9 sources)Singulair *ANTIASTHMATIC AND BRONCHODILATOR AGENTSPropensity to adverse kvervyrzt19-47-1193YmamtzhJkifn [place] [employer] Other (5 sources)Singulair *ANTIASTHMATIC AND BAllergy to nrzktedmi37-86-9082VokwxqpUniversity Hospitals Portage Medical CenterComment on above:Free Text Allergy: Singulair *ANTIASTHMATIC AND BRONCHODILATOR AGENTS; Onset Date: 07/02/2021 (20 sources)PenicillinsPropensity to adverse qifikgybc12-16-1159MdrhDPLY Healthcare (15 sources)CiprofloxacinDrug Mdchtik70-94-2933AgkkaLKOQ Healthcare (15 sources)levoFLOXacinDrug Ozgoeew24-48-4027VwhnklsBFMM Healthcare (7 sources)montelukastDrug Cpbaxrd54-56-6701LshoenwQZKY Healthcare Medications Current Medications MedicationDrug Class(es)DatesSig (Normalized)Sig (Original)[id number] 200 actuat albuterol 0.09 mg/actuat metered dose inhaler (20 sources)beta2-Adrenergic AgonistStart: 30-35-7160rasf 1 puff(s) by inhalation every four hours as neededAlbuterol Sulfate 90 mcg/actuation HFA aerosol inhaler Active 2 PUFF INHALATION Q4H as needed July 05, 2024 1:00am Complies with drug therapyStart: 07-05-2024 End: 78-91-0697trhx 1.25 mg by inhalation every four hours as neededAlbuterol Sulfate 2.5 mg /3 mL (0.083 %) solution for nebulization Discontinued 1.25 MG INHALATION Every 4 hours as needed July 05, 2024 1:00am January 07, 2025 1:58pmStart: 12-45-6577lrfb 90 ug by inhalation twice dailyAlbuterol Active [...] 1000 mg oral tablet (20 sources)Vitamin CStart: 37-99-9433mqem 1 g by mouth once dailyAscorbic Acid [...] sources)Platelet Aggregation Inhibitor, Nonsteroidal Anti-inflammatory Drug Start: 06-64-6396mjjj 1 capsule by mouth once dailyAspirin 81 mg Capsule Active 81 MG PO Daily June 02, 2021 1:00am Complies with drug therapytake 1 tablet by mouth once dailyaspirin 81 MG EC tablet Take 1 tablet by mouth Daily Active Aspirin 81 Activebaclofen 20 mg oral tablet (20 sources)gamma-Aminobutyric Acid-ergic AgonistStart: 02-22-2022 End: 73-10-3726cnfl 1 tablet by mouth twice daily as neededbaclofen (Lioresal) 20 MG tablet TAKE 1 TABLET BY MOUTH TWICE A DAY NEEDED FOR 30 DAYS 03/23/2022 Ocfezn995 actuat budesonide 0.16 mg/actuat / formoterol fumarate 0.0048 mg/actuat / glycopyrrolate 0.009 mg/actuat metered dose inhaler (1 source)Corticosteroid, beta2-Adrenergic AgonistStart: 05-07-2025 Nxouzxyqnc-Yqwuueob-Udyygqosyu (Breztri Aerosphere) 160-9-4.8 mcg/actuation HFA aerosol inhaler Active INHALATION May 07, 2025 12:00am Complies with drug gwguarq45 hr cetirizine hydrochloride 5 mg / pseudoephedrine hydrochloride 120 mg extended release oral tablet (20 sources)alpha-Adrenergic Agonist, Histamine-1 Receptor AntagonistStart: 95-02-6717zdtw 1 tablet by mouth once daily as neededCetirizine-Pseudoephedrine 5-120 mg tablet extended release 12 hr Active 1 TAB PO Daily January 16, 2024 12:00am FreeTextSi tablet as needed Orally Once a day; Note: Source Status: Taking; Refills: 5; Provider: Corry Agee Complies with drug therapyStart: 97-85-0098hpsv 1 tablet by mouth once daily as neededCetirizine-Pseudoephedrine 5-120 mg tablet extended release 12 hr Active 1 TAB PO Daily January 16, 2024 12:00am FreeTextSi tablet as needed Orally Once a day; Note: Source Status: Taking; Refills: 5; Provider: Corry Flores EStart: 81-42-9002gxrv 1 tablet by mouth every twenty-four hoursZyrTEC-D Allergy & Congestion 5-120 MG 1 tablet as needed Orally Once a day for 30 days Activecholecalciferol 0.025 mg oral tablet (8 sources)Vitamin DStart: 46-72-8169jujl 1 tablet by mouth once daily Cholecalciferol (Vitamin D3) (Vitamin D3) 25 mcg (1,000 unit) Tablet Active 25 MCG PO Daily June 02, 2021 1:00am Complies with drug therapyclobetasol propionate 0.5 mg/ml topical cream (12 sources)CorticosteroidStart: 11-23-2022 End: 16-72-1393yeqwxkhkkq (Temovate) 0.05 % cream APPLY THIN LAYER TO HANDS & NAILS DAILY MON-FRI,NO WEEKENDS,UNTIL CLEAR REPEAT NEEDED FOR FLARES 11/23/2022 06/14/2024 Discontinued (Ineffective)esomeprazole 40 mg delayed release oral capsule (20 sources)Proton Pump InhibitorStart: 86-63-4895lpgz 1 capsule by mouth twice dailyEsomeprazole Magnesium 40 mg capsule,delayed release(DR/EC) Active 0 .ROUTE .COMPLEX 180 August 23, 2024 8:07am TAKE 1 CAPSULE BY MOUTH TWICE A DAY ON AN EMPTY STOMACH FOLLOWED IN 30 MINUTES BY FOOD 90 Complies with drug therapyStart: 23-30-2791Mcvuggctpssx Magnesium 40 MG 1 capsule Orally twice daily on empty stomach followed in 30 minutes by food for 30 days November, ActiveStart: 10-19-2017 End: 37-63-1922uqpb 1 capsule by mouth once dailyEsomeprazole Magnesium 40 mg capsule,delayed release(DR/EC) Discontinued 40 MG PO Daily July 05, 2024 1:00am August 23, 2024 8:07amEsomeprazole Magnesium 40 mg capsule,delayed release(DR/EC) (2 sources)Start: 93-32-7161nejv 1 capsule by mouth twice dailyEsomeprazole Magnesium 40 mg capsule,delayed release(DR/EC) Active 0 .ROUTE .COMPLEX 180 August 23, 2024 8:07am TAKE 1 CAPSULE BY MOUTH TWICE A DAY ON AN EMPTY STOMACH FOLLOWED IN 30 MINUTES BY FOOD 90ezetimibe 10 mg oral tablet (1 source)Dietary Cholesterol Absorption InhibitorStart: 87-32-7658uksy 1 tablet by mouth once dailyEzetimibe 10 [...] spray into each nostril in the morning. Ioetoh33 actuat fluticasone furoate 0.1 mg/actuat / umeclidinium 0.0625 mg/actuat / vilanterol 0.025 mg/actuat dry powder inhaler (4 sources)Anticholinergic, Corticosteroid, beta2-Adrenergic AgonistStart: 06-19-4581lqhq 1 puff(s) by inhalation once tdyjiRehhrdxzuoa-Zyyyawzdz-Zhgzqe (Trelegy Ellipta) 100-62.5-25 MCG/ACT aerosol powder Indications: Chronic obstructive pulmonary disease, unspecified COPD type (HCC) Inhale 1 puff Daily 60 each 5 01/16/2025 Activegentamicin 0.001 mg/mg topical ointment (15 sources)Start: 73-51-7790kevsovqnli (Garamycin) 0.1 % ointment Indications: Bacterial infection Apply to hands BID prn 15 g 11 08/28/2024 ActiveStart: 54-44-4974ouylwdzzyj (Garamycin) 0.1 % ointment Indications: Bacterial infection [...] DAY Complies with drug therapyStart: 08-14-2024 End: 57-92-2363wpvq 1 tablet by mouth once dailyTelmisartan-Hydrochlorothiazid 40-12.5 mg tablet Discontinued 1 TAB PO Daily August 14, 2024 1:00am December 16, 2024 7:40amlactobacillus rhamnosus gg [id number] unt oral capsule (2 sources)Start: 99-02-9279Uajorhztgoqfj Rhamnosus Gg (Probiotic Digestive Care) 20 billion cell capsule Active CELL PO January 07, 2025 12:00am Complies with drug therapylubiprostone 0.008 mg oral capsule (17 sources)Chloride Channel ActivatorStart: 02-06-2025 End: 53-20-5963ivqm 1 capsule by mouth once dailyLubiprostone (Amitiza) 8 mcg capsule Active 8 MCG PO Daily 90 90 March 12, 2025 3:22pm Complies with drug therapyStart: 87-38-8502kmun 1 capsule by mouth once dailyLubiprostone 24 mcg capsule Active 24 MCG PO Daily 30 January 29, 2025 12:00am Complies with drug t herapyStart: 01-29-2025 End: 80-93-3061gnnh 1 capsule by mouth once dailyLubiprostone 8 mcg capsule Discontinued 8 MCG PO Daily January 29, 2025 12:00am January 29, 2025 9:48amStart: 04-08-2024 End: 51-90-2889giba 1 capsule by mouth in the morninglubiprostone (Amitiza) 8 MCG capsule Take 8 mcg by mouth in the morning and 8 mcg before bedtime. 06/14/2024 Discontinued (Med list cleanup)Start: 02-17-2024 End: 15-66-7714wrzu 1 capsule by mouth twice dailyLubiprostone (Amitiza) 8 mcg capsule Discontinued 8 MCG PO Twice daily 60 February 17, 2024 12:00am April 24, 2024 1:59pmStart: 02-17-2024 End: 89-51-7528ctld 1 capsule by mouth twice dailyLubiprostone (Amitiza) 8 mcg capsule Discontinued 8 MCG PO Twice daily 60 February 17, 2024 12:00am April 24, 2024 1:59pmomeprazole 40 mg delayed release oral capsule (20 sources)Proton Pump InhibitorStart: 04-26-2022 End: 25-57-3333iyzs 1 capsule by mouth twice daily 30 minutes before mealtime omeprazole (PriLOSEC) [address] capsule TAKE 1 CAPSULE BY MOUTH 30 MINUTES BEFORE MEAL TWICE DAILY FOR 30 DAYS 05/20/2022 06/14/2024 Discontinued (Med list cleanup)Start: 06-02-2021 End: 45-39-6756yyuo 1 capsule by mouth once dailyOmeprazole 40 mg Capsule,Delayed Release(Dr/Ec) Discontinued 40 MG PO Daily June 02, 2021 1:00am July 05, 2024 9:12ampaxlovid (300/100) 20 x 150 mg & 10 x 100mg tablet therapy pack (2 sources)Start: 88-80-8260jsmf 3 tablets by mouth every twelve hoursPaxlovid (300/100) 20 x 150 MG & 10 x 100MG 3 tablets Orally Twice a day for 5 days Aug, Activephentermine hydrochloride 37.5 mg oral tablet (1 source)Sympathomimetic Amine AnorecticStart: 67-29-1533bqys 1 tablet by mouth once daily 30 minutes after breakfastPhentermine (Adipex-P) 37.5 mg tablet Active 37.5 MG PO Daily May 07, 2025 12:00am mustadminister 30 minutes before or 1-2 hours after breakfast Complies with drug therapy polyethylene glycol 3350 59357 mg powder for oral solution (20 sources)Osmotic LaxativeStart: 46-64-1341Uxdqzuzbvcef Glycol 3350 (Miralax) 17 gram powder in packet Active 17 GM PO Daily January 07, 2025 12:00am Complies with drug therapyStart: 11-22-2023 End: 84-04-2531Qyzzhknhhdhn Glycol 3350 (Miralax) 17 gram/dose powder Discontinued 17 GM PO Twice daily November 24, 2023 12:00am February 17, 2024 8:51am Take 17 grams in liquid three times a day for constipationStart: 08-25-2023 MiraLax 17 GM/SCOOP 1 scoop mixed with 8 ounces of fluid Orally Once a day for 30 days Aug,ctiveStart: 19-59-0780bytr 17 g by mouth twice daily Polyethylene Glycol 3350 17 GM/SCOOP 17gm Orally twice a day for 30 day(s) Jun, Not-TakingStart: 12-19-9617pgjf 17 g by mouth once dailyPolyethylene Glycol 3350 17 GM/SCOOP 17gm Orally Once a day for 30 day(s) please dispense largest quantity Mar, ActiveRoflumilast (5 sources)Phosphodiesterase 4 InhibitorStart: 60-35-4571Ovwtbwfopls (Zoryve) 0.15 % cream Indications: Other atopic dermatitis Apply 1 Application topically Daily as needed (apply to hands when flared, hold when clear) 60 g 11 01/07/2025 Activetamsulosin hydrochloride 0.4 mg oral capsule (20 sources)alpha-Adrenergic BlockerStart: 87-49-3326szwb 1 capsule by mouth once daily at bedtimeTamsulosin 0.4 mg capsule Active 0.4 MG PO Daily at bedtime 90 April 12, 2025 10:21am Complies with drug therapyStart: 12-12-2023 End: 76-15-8335Ydntewnybm 0.4 mg capsule Discontinued 0 .ROUTE .COMPLEX March 07, 2024 1:32pm April 12, 2025 10:22am TAKE 1 CAPSULE BY MOUTH 30 MINUTES AFTER EVENING MEAL EVERY NIGHTStart: 10-12-2022 End: 25-20-2977zqqh 1 capsule by mouth once dailyTamsulosin 0.4 mg capsule Discontinued 0.4 MG PO Daily November 24, 2023 12:00am December 12, 2023 1:05pmStart: 77-70-1887nfbnrfhvwf (Flomax) 0.4 MG 24 hr capsule 10/12/2022 ActiveTamsulosin HCl Not-TakingTamsulosin HCl Activetazarotene 1 mg/ml topical cream (12 sources)RetinoidStart: 11-24-2022 End: 46-02-9502cpvkksulrh (Tazorac) 0.1 % cream APPLY TO HANDS DAILY 11/24/2022 06/14/2024 Discontinued (Med list cleanup)terbinafine 250 mg oral tablet (20 sources)Allylamine AntifungalStart: 05-17-2024 End: 44-46-5061cjmh 1 tablet by mouth once dailyterbinafine (LamISIL) [...] 90 mcg/actuation Aerosol (4 sources)Start: 06-02-2021 End: 17-10-7163qmeg 90 ug by inhalation twice dailyAlbuterol 90 mcg/actuation Aerosol Discontinued 90 MCG INHALATION Twice daily June 02, 2021 1:00am January 16, 2024 1:24pmamoxicillin 875 mg / clavulanate 125 mg oral tablet (8 sources)Penicillin-class AntibacterialStart: 08-09-2024 End: 93-24-9600jpsk 1 tablet by mouth every twelve hoursAmoxicillin-Pot Clavulanate 875-125 mg tablet Discontinued 1 TAB PO Every 12 hours September 4:28pm January 07, 2025 1:58pmbenzonatate 200 mg oral capsule (16 sources)Non-narcotic AntitussiveStart: 07-06-2024 End: 79-96-5889admf 1 capsule by mouth three times dailyBenzonatate 200 mg capsule Discontinued 200 MG PO Three times daily 30 July 06, 2024 1:00am January 07, 2025 1:58pmStart: 86-58-9989gamb 1 capsule by mouth every eight hoursBenzonatate 200 MG 1 capsule Orally Three times a day for 10 Aug, Not-Takingcefuroxime 500 mg oral tablet (12 sources)Cephalosporin AntibacterialStart: 33-27-5572aatv 1 tablet by mouth every twelve hoursCefuroxime Axetil 500 MG 1 tablet Orally every 12 hrs for 5 day(s) Aug, Not-Takingciprofloxacin 500 mg oral tablet (8 sources)Quinolone AntimicrobialStart: 04-24-2024 End: 05-80-3279jtfn 1 tablet by mouth twice dailyCiprofloxacin Hcl (Cipro) 500 mg tablet Discontinued 500 MG PO Twice daily 13 05April 24, 2024 12:00am July 05, 2024 9:16amStart: 01-16-2024 End: 04-25-3813cawb 1 tablet by mouth twice dailyCiprofloxacin Hcl 500 mg tablet Discontinued 500 MG PO Twice daily 13 05January 16, 2024 12:00am February 17, 2024 8:50amdicyclomine hydrochloride 20 mg oral tablet (20 sources)AnticholinergicStart: 43-34-7138qodh 1 tablet by mouth at bedtime Dicyclomine HCl 20 MG 1 tablet Orally AC and HS for 10 days Sep, Not-TakingStart: 87-94-2111ulxu 1 tablet by mouth three times daily as needed Dicyclomine HCl 20 MG 1 tablet Orally Three times a day as needed for 30 day(s) May, ActivediphenhydrAMINE citrate 38 mg / ibuprofen 200 mg oral tablet (5 sources)Histamine-1 Receptor Antagonist, Nonsteroidal Anti-inflammatory Drug Start: 06-02-2021 End: 44-49-3444kweb 1 capsule by mouth once daily at bedtime as needed for sleep Ibuprofen-Diphenhydramine Cit (Advil Pm) 200-38 mg Tablet Discontinued 1 CAP PO Daily at bedtime asneeded for sleep June 02, 2021 1:00am January 16, 2024 1:24pmdoxycycline hyclate 100 mg oral capsule (20 sources)Tetracycline-class DrugStart: 08-31-2024 End: 48-86-3967rrkx 1 capsule by mouth twice dailyDoxycycline Hyclate 100 mg capsule Discontinued 100 MG PO Twice daily 14 August 31, 2024 6:27pm January 07, 2025 1:57pmStart: 06-26-2024 End: 58-48-0734ujod 1 capsule by mouth twice dailyDoxycycline Hyclate 100 mg capsule Discontinued 100 MG PO Twice daily 14 June 26, 2024 1:00am July 05, 2024 9:15amStart: 05-09-2024 End: 48-01-8789azor 1 capsule by mouth twice dailydoxycycline (Monodox) 100 MG capsule Indications: Bacterial infection Take 1 capsule, by mouth bid,x 10 days 20 capsule 05/09/2024 12/25/2024 Discontinued (Therapy completed)Start: 99-11-7409kabf 1 capsule by mouth twice dailyDoxycycline Hyclate 100 MG 1 capsule Orally twice daily for 7 days Aug, Zdrggf79 actuat fluticasone propionate 0.25 mg/actuat / salmeterol 0.05 mg/actuat dry powder inhaler (20 sources)Corticosteroid, beta2-Adrenergic AgonistStart: 09-19-2024 End: 32-50-6486qifw 1 puff(s) by inhalation twice dailyFluticasone Propion- Salmeterol 250-50 mcg/dose blister with device Discontinued 0 .ROUTE .COMPLEX 18 0 September 19, 2024 2:12pm January 16, 2025 12:31pm INHALE 1 PUFF INTO THE LUNGS TWICE A DAYStart: 12-12-2023 End: 40-93-2195tuhw 1 puff(s) by inhalation twice dailyFluticasone Propion- Salmeterol (Wixela Inhub) 250-50 mcg/dose blister with device Discontinued 0 .RO ESDRAS .COMPLEX 180 December 12, 2023 1:24pm September 19, 2024 2:12pm INHALE 1 PUFF INTO THE LUNGS TWICE A DAY FOR 30 DAYSStart: 12-12-2023 End: 28-75-4830Hdumulkxzol Propion-Salmeterol (Advair Diskus) 250-50 mcg/dose blister with device Discontinued 1 INH INHALATION Twice daily December 12, 2023 12:00am January 16, 2024 1:24pmStart: 09-16-2023 End: 55-92-6276Zmhvaztelgr Propion-Salmeterol (Wixela Inhub) 250-50 mcg/dose blister with device Discontinued 1 INH INHALATION Every 12 hours 60 30 September 16, 2023 1:00am December 12, 2023 1:27pmStart: 04-25-2023 End: 32-21-5987Ejboam Diskus 250-50 MCG/ACT aerosol powder 04/25/2023 01/16/2025 DiscontinuedStart: 34-28-9952vvxh 1 puff(s) by inhalation twice dailyAdvair Diskus 250-50 MCG/ACT aerosol powder INHALE 1 PUFF INTO THE LUNGS TWICE A DAY FOR 30 DAYS 04/25/2023 ActiveStart: 44-36-4694izvq 1 puff(s) by inhalation twice dailyFluticasone-Salmeterol 250-50 MCG/ACT 1 puff Inhalation Twice a day for 30 days Mar, OawpgeQholzuyrnky-Wwtydmqnr-Fsiprckx (2 sources)Start: 01-16-2025 End: 49-49-3044Awcaxiejyco-Umeclidin-Vilanter (Trelegy Ellipta) 200-62.5-25 mcg blister with device Discontinued 1INH INHALATION Daily 60 January 16, 2025 12:00am May 07, 2025 10:54amStart: 01-16-2025 Pipfurlljfi-Ridxczjjr-Fkzzepgg (Trelegy Ellipta) 200-62.5-25 mcg blister with device Active 1 INH INHALATION Daily 60 January 16, 2025 12:00am Complies with drug therapyhydroCHLOROthiazide 12.5 mg / lisinopril 10 mg oral tablet (20 sources)Thiazide Diuretic, Angiotensin Converting Enzyme InhibitorStart: 08-07-2024 End: 74-28-5314lhhd 1 tablet by mouth once dailyLisinopril-Hydrochlorothiazide 20-25 mg tablet Discontinued 1 TAB PO Daily August 0751:00am August 14, 2024 11:16amStart: 07-06-2024 End: 26-24-8610cynv 1 tablet by mouth once dailyLisinopril-Hydrochlorothiazide 10-12.5 mg tablet Discontinued 1 TAB PO Daily August 07, 2024 1:43pm August 07, 2024 1:44pmlinaclotide 0.145 mg oral capsule (4 sources)Guanylate Cyclase-C AgonistStart: 01-30-2024 End: 11-37-8975daon 1 capsule by mouth once dailyLinaclotide (Linzess) 145 mcg capsule Discontinued 145 MCG PO Daily 30 January 30, 2024 12:00am February 17, 2024 8:51amloperamide hydrochloride 2 mg oral capsule (5 sources)Opioid AgonistStart: 06-02-2021 End: 69-33-4197xflx 1 capsule by mouth once daily as neededLoperamide 2 mg Capsule Discontinued 2 MG PO Daily as needed for loose stool June 02, 2021 1:00am January 16, 2024 1:24pmmontelukast 10 mg oral tablet (5 sources)Leukotriene Receptor AntagonistStart: 06-02-2021 End: 85-14-0142htyq 1 tablet by mouth once dailyMontelukast 10 mg tablet Discontinued 10 MG PO Daily June 02, 2021 1:00am November 24, 2023 12:27pm plecanatide 3 mg oral tablet (4 sources)Start: 01-07-2025 End: 84-23-4785scqu 1 tablet by mouth once dailyPlecanatide (Trulance) 3 mg tablet Discontinued 3 MG PO Daily January 07, 2025 12:00am January 29, 2025 9:31am Start: 01-16-2024 End: 91-66-5401vdwe 1 tablet by mouth once dailyPlecanatide (Trulance) 3 mg tablet Discontinued 3 MG PO Daily January 16, 2024 12:00am January 30, 2024 11:43amPlecanatide (Trulance) 3 mg tablet (2 sources)Start: 01-16-2024 End: 10-65-8698gzmw 1 tablet by mouth once dailyPlecanatide (Trulance) 3 mg tablet Discontinued 3 MG PO Daily January 16, 2024 12:00am January 30, 2024 11:43amPolyethylene Glycol 3350 (Miralax) 17 gram/dose powder (3 sources)Start: 11-22-2023 End: 20-35-1277Rhuxpgeibewc Glycol 3350 (Miralax) 17 gram/dose powder Discontinued 17 GM PO Three times daily November 22, 2023 12:00am November 24, 2023 12:29pm Take 17 grams in liquid three times a day for constipation predniSONE 20 mg oral tablet (8 sources)Start: 08-09-2024 End: 34-01-7925Vdrfdfrecd 20 mg tablet Discontinued 20 MG PO As Directed August 09, 2024 1:00am January 07, 2025 1:57pm 1 tab tid w/ food x 3 days, then bid w/ food x 3 days, then qd w/ food x 3 daysStart: 07-05-2024 End: 57-98-2282tmcd 2 tablets by mouth once dailyPrednisone 10 mg tablet Discontinued 20 MG PO Daily July 05, 2024 1:00am August 09, 2024 11 :58amrosuvastatin calcium 20 mg oral tablet (20 sources)HMG-CoA Reductase InhibitorStart: 06-02-2021 End: 42-10-1533quzp 1 tablet by mouth every other dayRosuvastatin 20 mg Tablet Discontinued 20 MG PO .every other day June 02, 2021 1:00am January 16, 2024 1:25pmtake 1 tablet by mouth in the eveningRosuvastatin Calcium 20 MG TAKE 1 TABLET BY MOUTH IN THE EVENING ActiveCrestor 20MG ActiveSod Picosulf-Mag Ox- Citric Ac (5 sources)Start: 11-22-2023 End: 79-97-3647gqxh 1 mL by mouth once dailySod Picosulf-Mag Ox-Citric Ac (Clenpiq) 10 mg-3.5 gram- 12 gram/175 mL solution Discontinued 175 MLPO Daily 07 25November 22, 2023 12:00am January 16, 2024 1:25pm please follow instructions provided byDr. Briggs's office.Start: 62-46-2531zdfr 1 mL by mouth once dailySod Picosulf-Mag Ox-Citric Ac (Clenpiq) 10 mg-3.5 gram- 12 gram/175 mL solution Active 175 ML PO Daily 07 25November 22, 2023 12:00am please follow instructions provided by Dr. Briggs's office.tacrolimus 0.001 mg/mg topical ointment (20 sources)Calcineurin Inhibitor ImmunosuppressantStart: 05-17-2024 End: 98-54-8389zjukvbxzyi (Protopic) 0.1 % ointment Indications: Encounter for removal of sutures Apply topically 2 (two) times a day 60 g 3 05/17/2024 01/10/2025 Discontinued (Therapy completed)ubidecarenone 200 mg oral capsule (14 sources)Start: 06-02-2021 End: 81-13-3938Juvybouz Q10 (Co Q-10) 200 mg Capsule Discontinued 200 MG PO Daily June 02, 2021 1:00am January 16, 2024 1:44jwMtW04 200 MG as directed Orally ActiveZinc (20 sources)Start: 06-02-2021 End: 77-53-2242tonj 1 tablet by mouth once dailyZinc 50 mg Tablet Discontinued 50 MG PO Daily June 02, 2021 1:00am November 24, 2023 12:28pmStart: 06-02-2021 End: 56-67-0688oupf 50 mg by mouth once dailyZinc Discontinued 50 MG PO Daily June 02, 2021 1:00am November 24, 2023 12:28pmZinc Not-TakingZinc Active Problems Active Problems Problem ClassificationProblemDateDocumented DateEpisodic/ChronicAbdominal pain (20 sources)Stomach cramps; Translations: [Unspecified abdominal pain]Onset: 01-29-2014 Resolved: 68-22-2533NhcnolgnIoqlc and unspecified renal failure (2 sources)Acute kidney failure, unspecified; Translations: [ACUTE KIDNEY FAILURE UNSPECIFIED]Onset: 62-69-9206DkzlfjsrUlomh bronchitis (20 sources)Acute bronchitis due to other specified organisms; Translations: [Acute bronchitis]Onset: 32-43-0318QtfsenyoRlwtqld-related disorders (9 sources)Alcohol abuse; Translations: [Alcohol abuse, uncomplicated]Chronic Allergic reactions (4 sources)Atopic dermatitis; Translations: [Other atopic dermatitis]05-31-2024 ChronicChronic obstructive pulmonary disease and bronchiectasis (20 sources)Chronic obstructive pulmonary disease with acute lower respiratory infection; Translations: [Chronic obstructive pulmonary disease with (acute) lower respiratory infection]Onset: 08-04-2018 Resolved: 49-49-5900EppfppuUbbmnggze of lipid metabolism (20 sources)Familial hypercholesterolemia; Translations: [Familial hypercholesterolemia]Onset: 09-06-8632CynyrmuLinxntz on above:Problem List clean-up per request of Phys. EHR CmteDiverticulosis and diverticulitis (20 sources)Diverticulitis of colon; Translations: [Diverticulitis of intestine, part unspecified, without perforation or abscess without bleeding]Onset: 09-05-2018 Resolved: [id number] disorders (20 sources)Gastroesophageal reflux disease; Translations: [Gastro-esophageal reflux disease without esophagitis]Onset: 11-15-2014 Resolved: 59-70-7250AyekarjMnniuarpx hypertension (10 sources)Hypertensive disorder; Translations: [Essential (primary) hypertension]Onset: 01-07-2025 Resolved: [id number] and electrolyte disorders (2 sources)Dehydration; Translations: [DEHYDRATION]Onset: 63-14-8811Qngocycl Genitourinary symptoms and ill-defined conditions (9 sources)Peterson hematuria; Translations: [Gross hematuria]EpisodicHyperplasia of prostate (20 sources)Lower urinary tract symptoms due to benign prostatic hypertrophy; Translations: [Benign prostatic hyperplasia with lower urinary tract symptoms] Onset: 54-60-8744CerijkmXpwicbdewguya and screening for infectious disease (18 sources)Nonspecific tuberculin test reaction ; Translations: [Nonspecific reaction to tuberculin skin test without active tuberculosis]EpisodicIntestinal infection (2 sources)Campylobacter enteritis; Translations: [CAMPYLOBACTER ENTERITIS] Onset: 56-96-2947GfkvkwxqJuldyyl (20 sources)Onychomycosis due to dermatophyte ; Translations: [Dermatophytosis of nail]Onset: 203806-14-8007OksszbkqXudqfljuh of unspecified nature or uncertain behavior (2 sources)Neoplastic disease; Translations: [Neoplasm of unspecified behavior of bone, soft tissue, and skin]62-64-4258UulknprtDhgwrxjxdjhhwj (9 sources)Osteoarthritis; Translations: [Polyosteoarthritis, unspecified]Onset: 18-19-8627MhgmylxKuhcm aftercare (1 source)detention (current) use of aspirin; Translations: [[facility] CURRENT USE OF ASPIRIN]Onset: 63-55-4753InoesvaqZwila aftercare (1 source)Other section cutter (current) drug therapy; Translations: [OTH PROGRESSIVE ASSEMBLER AND FITTER CURRENT DRUG THERAPY]Onset: 53-66-8295AdjpjadqNjwux aftercare (9 sources)Long-term current use of drug therapy; Translations: [Other section cutter (current) drug therapy]EpisodicOther aftercare (2 sources)Removal of sutures done; Translations: [Encounter for removal of sutures]25-48-7835LaugkncqOzbal aftercare (2 sources)Taking high risk medication; Translations: [Other penitentiary (current) drug therapy]47-02-9707UrjbzqmpPaatp and unspecified benign neoplasm (9 sources)Polyp of colon; Translations: [Polyp of colon]EpisodicOther congenital anomalies (20 sources)Congenital anomaly of larynx; 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]Onset: 070281-80-5288SucuwprXcrsg congenital anomalies (2 sources)Other congenital malformations of larynxChronicOther disorders of stomach and duodenum (20 sources)Indigestion; Translations: [Functional dyspepsia]16-37-8839Nazwekyy Other disorders of stomach and duodenum (1 [...] [Irritable bowel syndrome with constipation]Onset: 01-07-2025 Resolved: 533716-11-3548EqptqgnRyghd gastrointestinal disorders (4 sources)Irritable bowel syndrome with constipation; Translations: [Irritable bowel syndrome]ChronicOther gastrointestinal disorders (3 sources)Irritable bowel syndrome; Translations: [Irritable bowel syndrome without diarrhea]02-46-9083YxbyqagVmjly gastrointestinal disorders (17 sources)Swollen abdomen; Translations: [Abdominal [...] disorders (5 sources)Diarrhea, unspecified; Translations: [DIARRHEA UNSPECIFIED]Onset: 83-83-4697KftwqducZthpk gastrointestinal disorders (3 sources)Personal history of other diseases of the digestive systemEpisodic Other gastrointestinal disorders (9 sources)Disorder of gastrointestinal tract; Translations: [Other specified diseases of the digestive system]Onset: 01-07-2025 Resolved: 727450-53-0197KkxtsdyvWkcdd lower respiratory disease (19 sources)Chronic cough; Translations: [Chronic cough]Onset: 01-07-2025 Resolved: 455427-81-7667XikzpqxxGfggf lower respiratory disease (1 source)Other forms of dyspneaEpisodicOther lower respiratory disease (9 sources)Hypoxia; Translations: [Hypoxemia]Onset: 01-07-2025 Resolved: 739905-60-1920NqrozufuUerrp non-epithelial cancer of skin (9 sources)Squamous cell carcinoma of upper extremity; Translations: [Squamous cell carcinoma of skin of unspecified upper limb, including shoulder]Episodic Other nutritional; endocrine; and metabolic disorders (20 sources)Obese class I; Translations: [Body mass index (BMI) 32.0-32.9, adult]Onset: 89-85-5420GrfcoxjKmhzu nutritional; endocrine; and metabolic disorders (9 sources)Morbid obesity; Translations: [Morbid (severe) obesity due to excess calories]Onset: 32-77-3664LhvihqdKuxni nutritional; endocrine; and metabolic disorders (9 sources)Simple obesity ; Translations: [Other obesity due to excess calories] Onset: 50-37-3162TlflntfBcmbp nutritional; endocrine; and metabolic disorders (11 sources)Obesity; Translations: [Obesity, unspecified]10-32-0384WhjcbapPykoz nutritional; endocrine; and metabolic disorders (9 sources)Body [...] mechanism; Translations: [Patient encounter status]Onset: 09-22-2015 Resolved: 860127-25-5524FtnlxxwvVpwyi skin disorders (2 sources)Eruption; Translations: [Rash and other nonspecific skin eruption] 93-03-3342XandkjpmWjlmj skin disorders (4 sources)Actinic keratosis; Translations: [Actinic keratosis]05-31-2024 EpisodicOther skin disorders (2 sources)Skin tag; Translations: [Other hypertrophic disorders of the skin] 66-48-3969IfcqtgeyLdlva skin disorders (3 sources)Asteatosis cutis; Translations: [Xerosis cutis]27-52-4133Bsfxllnj Other upper respiratory disease (9 sources)Allergic rhinitis; Translations: [Allergic rhinitis, unspecified] Onset: 47-51-9839DngbupaZaupg upper respiratory disease (9 sources)Vasomotor rhinitis; Translations: [Vasomotor rhinitis]ChronicOther upper respiratory disease (20 sources)Chronic rhinitis; Translations: [Chronic rhinitis]Onset: 12-16-2022 67-96-5233AzegtamDqisf upper respiratory disease (9 sources)Seasonal allergic rhinitis; Translations: [Other seasonal allergic rhinitis]Onset: 01-07-2025 Resolved: 099958-15-9939QnrlzoqOvjkl upper respiratory disease (2 sources)Other seasonal allergic rhinitis; Translations: [Allergic rhinitis, cause unspecified]77-09-1188OxxypjeYywav upper respiratory infections (20 sources)Sinusitis; Translations: [Chronic sinusitis, unspecified]Onset: 006917-78-0036LrmrtobGkkvz upper respiratory infections (20 sources)Acute maxillary sinusitis; Translations: [Acute maxillary sinusitis, unspecified]Onset: 92-21-2972UthahjbrDnuucn media and related conditions (20 sources)Acute suppurative otitis media without spontaneous rupture of ear drum; Translations: [Acute suppurative otitis media without spontaneous rupture of ear drum, left ear]EpisodicPneumonia (except that caused by tuberculosis or sexually transmitted disease) (18 sources)Inactive tuberculosis; 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]Onset: 01-07-2025 Resolved: 858098-35-8302GcctlqvaBtediuhb codes; unclassified (2 sources)Hypersomnia; Translations: [Hypersomnia, unspecified]03-13-2025 ChronicResidual codes; unclassified (9 sources)Immunization refused ; Translations: [Immunization not carried out because of patient refusal]EpisodicResidual codes; unclassified (20 sources)Tobacco user; Translations: [Tobacco use]Onset: EpisodicResidual codes; unclassified (10 sources)Family history of cancer of colon; Translations: [Family history of malignant neoplasm of digestiveorgans]Onset: 01-07-2025 Resolved: 095193-44-4945XzwhzilaOmptqmw on above:Problem List clean-up per request of Phys. EHR CmteSpondylosis; intervertebral disc disorders; other back problems (9 sources)Cervical spondylosis without myelopathy; Translations: [Spondylosis without myelopathy or radiculopathy, cervical region]ChronicSprains and strains (18 sources)Neck sprain; Translations: [Strain of muscle, fascia and tendon at neck level, initial encounter]EpisodicSubstance-related disorders (20 sources)Nicotine dependence; Translations: [Nicotine dependence, cigarettes, uncomplicated]Onset: 11-15-2014 Resolved: 45-79-6112QqnjvvsZrkiwdpbuusc (1 source)CONTACT W/AND (SUSP) EXPOS COVID-19; Translations: [CONTACT W/AND (SUSP) EXPOS COVID-19]Onset: 95-33-4264Ukmwmpjmtank (9 sources)Exposure to acute respiratory syndrome coronavirus 2; Translations: [Contact with and (suspected) exposure to COVID-19]Viral infection (10 sources)Disease caused by 2019-nCoV; Translations: [COVID-19] Past or Other Problems Problem ClassificationProblemDateDocumented DateEpisodic/ChronicAllergic reactions (18 sources)Allergic contact dermatitis due to plants, except food; Translations: [Allergic contact dermatitis due to plants, except food]Onset: 97-54-4086IpgvcsqeRmcciotsoj disorders (2 sources)Esophageal disorders; Translations: [Gastro-esophageal reflux disease with esophagitis, without bleeding]Inflammation; infection of eye (except that caused by tuberculosis or sexually transmitteddisease) (9 sources)Acute atopic conjunctivitis of left eye; Translations: [Acute atopic conjunctivitis, left eye] Resolved: 78-12-6919KdwrxistKhxyaihcv (9 sources)Influenza; Translations: [Influenza with other respiratory manifestations]Onset: 19-78-3168ZkvbbqxsTjxxxuy and fatigue (9 sources)Malaise and fatigue; Translations: [Other malaise and fatigue]Onset: 42-25-9123FburnnvdBluteg and vomiting (9 sources)Nausea; Translations: [Nausea]Onset: 56-96-7048SjtgymyzIrrdsodpqqevh gastroenteritis (5 sources)Noninfective gastroenteritis and colitis, unspecified; Translations: [NONINFECTIVE GE AND COLITIS UNS]Onset: 41-43-7414HfhkckgjCkopf connective tissue disease (9 sources)Synovitis and tenosynovitis; Translations: [Synovitis and tenosynovitis, unspecified]Onset: 27-13-4000EevbpqatSlwlu connective tissue disease (9 sources)Pes anserinus tendinitis and bursitis; Translations: [Pes anserinus tendinitis or bursitis]Onset: 53-22-6998XeyowqofVdtji ear and sense organ disorders (20 sources)Hearing loss; Translations: [Unspecified hearing loss, unspecified ear]Onset: 10-23-2020 Resolved: 385885-34-0966RecbifmSvehe gastrointestinal disorders (3 sources)Abdominal distension (gaseous); Translations: [ABDOMINAL DISTENSION GASEOUS]Onset: 45-00-7640HxxoxipfHzrbp gastrointestinal disorders (9 sources)Flatulence, eructation and gas pain; Translations: [Abdominal distension (gaseous)]Onset: 46-34-7096QgktosuhBxzwl gastrointestinal disorders (9 sources)Digestive symptom; Translations: [Other symptoms involving digestive system]Onset: 98-54-0386GsfkszsqPvdwq non-traumatic joint disorders (9 sources)Arthralgia of the lower leg; Translations: [Pain in unspecified knee] Onset: 54-79-8069WdrcihoqJctsc skin disorders (9 sources)Localized swelling, mass and lump, unspecified; Translations: [Localized mass]Onset: 34-51-5442OyhdosyfCkpm and subcutaneous tissue infections (9 sources)Cellulitis of right axilla; Translations: [Cellulitis of right axilla]Onset: 52-45-3749XjwmkqiaGzpjcophoob injury; contusion (9 sources)Contusion of lower leg; Translations: [Contusion of unspecified lower leg, initial encounter]Onset: 16-72-8649XzkwhtxsKcgoupsorzpg (9 sources)Long-term current use of drug therapy; Translations: [Long-term (current) use of other medications]Onset: 30-74-8728Mkidunskteax (1 source)Post COVID-19 condition, 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Unclassified (2 sources)Latent tuberculosisUnclassified (2 sources)Removal of sutures [id number] Results Test NameValueInterpretationReference RangeFacilityHemoglobin [Mass/volume] in Bloodon 79-64-6432Frataxvmkt (Bld) [Mass/Vol]16.1 g/dL14.0-18.0[facility] HospitalNo Panel Informationon [id number]-Jewish Saint [facility] HospitalType of biopsy: tangential Informed consent: discussed and [...] taken yes Amount of lidocaine used: 0.5 [facility] HospitalEstimated glomerular filtration rate (GFR) non- Americanon 45-41-1719SFV/1.73 sq M.predicted among non-blacks MDRD (S/P/Bld) [Vol rate/Area]Estimated glomerular filtration rate (GFR) non- AmericanLow>=60 mL/min/1.73m 2FTrinity Health SystemLaboratory - Chemistry and Chemistry - challengeon 29-05-3167Yevuyokyur [Mass/Vol]1.34 mg/dLHigh0.70-1.30[facility] HospitalGFR/1.73 sq M.predicted MDRD (S/P/Bld) [Vol rate/Area]mL/min/{1.73_m2} >=60 mL/min/1.[address]m [address] [place], [place] [address]No Panel Informationon [id number]-Jewish Saint Peters HospitalNo Panel Informationon 05-84-4670Mxkh of biopsy: punch Informed consent: discussed and [...] of sutures used: 2 Photo taken [facility] AUTO DIFFon [id number] #0.1 103/ulNormal0.0-0.1[facility] HospitalComment on above: Performed By: #### CBC #### [facility] [address] [address] [address] Kyle AdamsonBasophils/100 WBC (Bld)0.8 %Normal0.2-2.0The [facility] Comment on above:Performed By: #### CBC #### [facility] [address] [address] [address] Kyle Saravia #0.2 103/ulNormal0.0-0.7The [facility] HospitalComment on above: Performed By: #### CBC #### [facility] [address] [address] [address] Kyle Holtosinophils/100 WBC (Bld)3.7 %Normal0.9-7.0[facility] Comment on above:Performed By: #### CBC #### [facility] [address] [address] [address] Kyle Holtrythrocyte distribution width (RBC) [Ratio]14.5 %Qiktky65.0-15.0 [facility] HospitalComment on above:Performed By: #### CBC #### [facility] [address] [place] [address] Dr. Kyle AdamsonHematocrit (Bld) [Volume fraction]44.3 %Kecmqr63.0-54.0The [facility] HospitalComment on above:Performed By: #### CBC #### [facility] [address] [place] [address] Dr. Kyle AdamsonHemoglobin (Bld) [Mass/Vol]14.9 g/rQMqmxsh17.0-18.0The [facility] HospitalComment on above:Performed By: #### CBC #### [facility] [address] [place] [address] Dr. Kyle Guerrero #0.06 10e3/ulCritically high0.00-0.03[facility] Comment on above:Performed By: #### CBC #### [facility] [address] [place] [address] Dr. Kyle Guerrero %0.9 %Critically high0.0-0.5The [facility] HospitalComment on above:Performed By: #### CBC #### [facility] [address] [place] [address] Dr. Kyle Coleman #2.3 103/ulNormal1.2-3.8The [facility] HospitalComment on above:Performed By: #### CBC #### [facility] [address] [place] [address] Dr. Kyle Paulsonhocytes/100 WBC (Bld)35.9 %Wqfmie07.5-60.0The [facility] HospitalComment on above:Performed By: #### CBC #### [facility] [address] [place] [address] Dr. Kyle JacobsenUAL DIFF REQNONormalThe [facility] HospitalComment on above: Performed By: #### CBC #### [facility] [address] [address] [address] Kyle Christian (RBC) [Entitic mass]29.7 znWwrenz84.9-34.0The [facility] HospitalComment on above:Performed By: #### CBC #### [facility] [address] [place] [address] Dr. Kyle Christian (RBC) [Mass/Vol]33.6 g/aDQjewkz97.9-35.2The [facility] HospitalComment on above:Performed By: #### CBC #### [facility] [address] [place] [address] Dr. Kyle Christian (RBC) [Entitic vol]88.2 oKQysybq55.0-94.0The [facility] HospitalComment on above:Performed By: #### CBC #### [facility] [address] [place] [address] Dr. Kyle Maddox #1.3 103/ulCritically high0.3-0.8The [facility] Comment on above:Performed By: #### CBC #### [facility] [address] [place] [address] Dr. Kyle Hicksocytes/100 WBC (Bld)19.3 %Critically high1.7-12.0The [facility] HospitalComment on above:Performed By: #### CBC #### [facility] [address] [place] [address] Dr. Kyle Amaral #2.6 103/ulNormal1.4-6.5The [facility] HospitalComment on above:Performed By: #### CBC #### [facility] [address] [place] [address] Dr. Kyle Ronutrophils/100 WBC (Bld)39.4 %Critically low43.0-75.0The [facility] HospitalComment on above:Performed By: #### CBC #### [facility] [address] [place] [address] Dr. Kyle Seguralet mean volume (Bld) [Entitic vol]9.5 fLNormal9.5-13.5The [facility] HospitalComment on above:Performed By: #### CBC #### [facility] [address] [place] [address] Dr. Kyle CamachoT287 103/xpAunxvx549-395Ymk [facility] HospitalComment on above: Performed By: #### CBC #### [facility] [address] [place] [address] Dr. Kyle AdamsonRBC5.02 106/ulNormal4.70-6.10The [facility] HospitalComment on above:Performed By: #### CBC #### [facility] [address] [place] [address] Dr. Kyle AdamsonWBC6.5 103/ulNormal4.0-11.0The [facility] HospitalComment on above: Performed By: #### CBC #### [facility] [address] [place] [address] Dr. Kyle AdamsonPROF CHEM 8 (BAS METB)on 22-44-9248Ztkde gap [Moles/Vol]12.4 mmol/LNormalWyandot Memorial HospitalComment on above:Performed By: #### BMP #### [facility] [address] [place] [address] Dr. Kyle AdamsonCalcium [Mass/Vol]8.6 mg/dLNormal8.5-10.1[facility] Comment on above:Performed By: #### BMP #### [facility] [address] [place] [address] Dr. Kyle AdamsonChloride [Moles/Vol]105 mmol/WQvauur07-096Sgd [facility] Comment on above:Performed By: #### BMP #### [facility] [address] [place] [address] Dr. Kyle AdamsonCO2 [Moles/Vol]24.8 mmol/MXrkqiq12.0-32.0The [facility] Comment on above:Performed By: #### BMP #### [facility] [address] [place] [address] Dr. Yilan ChangCreatinine [Mass/Vol]1.30 mg/dLNormal0.70-1.30The [facility] HospitalComment on above:Performed By: #### BMP #### [facility] [address] [place] [address] Dr. Kyle HoltGFR-AF KENYAN>60Normal>=60The [facility] HospitalComment on above:Performed By: #### BMP #### [facility] [address] [place] [address] Dr. Kyle HoltGFR-NON AF HKDHNRJO04 mL/min/1.90l0Nvzewekmzh low>=60The [facility] HospitalComment on above:Performed By: #### BMP #### [facility] [address] [place] [address] Dr. Kyle AdamsonGlucose [Mass/Vol]109 mg/dLCritically rzcm55-347Mlh [facility] HospitalComment on above:Performed By: #### BMP #### [facility] [address] [place] [address] Dr. Kyle AdamsonPotassium [Moles/Vol]4.2 mmol/LNormal3.5-5.1[facility] Comment on above:Performed By: #### BMP #### [facility] [address] [place] [address] Dr. Kyle AdamsonSodium [Moles/Vol]138 mmol/EYlojbt224-717Bwl [facility] Comment on above:Performed By: #### BMP #### [facility] [address] [place] [address] Dr. Kyle AdamsonUrea nitrogen [Mass/Vol]23.0 mg/dLCritically high7.0-18.0The [facility] HospitalComment on above:Performed By: #### BMP #### [facility] [address] [place] [address] Dr. Kyle Tillman nitrogen/Creatinine [Mass ratio]17.7 mg/mgNormalThe [facility] HospitalComment on above:Performed By: #### BMP #### [facility] [address] [place] [address] Dr. Kyle LedezmaC AUTO DIFFon [id number] #0.1 103/ulNormal0.0-0.1The [facility] HospitalComment on above:Performed By: #### CBC #### [facility] [address] [address] [address] Kyle AdamsonBasophils/100 WBC (Bld)1.0 %Normal0.2-2.0The [facility] Comment on above:Performed By: #### CBC #### [facility] [address] [address] [address] Kyle Saravia #0.3 103/ulNormal0.0-0.7The [facility] HospitalComment on above: Performed By: #### CBC #### [facility] [address] [place] [address] Dr. Kyle Holtosinophils/100 WBC (Bld)3.7 %Normal0.9-7.0The [facility] Comment on above:Performed By: #### CBC #### [facility] [address] [place] [address] Dr. Kyle Holtrythrocyte distribution width (RBC) [Ratio]14.6 %Sjgrhp82.0-15.0 The [facility] HospitalComment on above:Performed By: #### CBC #### [facility] [address] [place] [address] Dr. Kyle AdamsonHematocrit (Bld) [Volume fraction]51.9 %Xbhivp54.0-54.0The [facility] HospitalComment on above:Performed By: #### CBC #### [facility] [address] [place] [address] Dr. Kyle AdamsonHemoglobin (Bld) [Mass/Vol]17.9 g/xRHebdcw10.0-18.0The [facility] HospitalComment on above:Performed By: #### CBC #### [facility] [address] [place] [address] Dr. Kyle Guerrero #0.03 10e3/ulNormal0.00-0.03The [facility] HospitalComment on above:Performed By: #### CBC #### [facility] [address] [address] [address] Kyle Guerrero %0.4 %Normal0.0-0.5The [facility] HospitalComment on above: Performed By: #### CBC #### [facility] [address] [address] [address] Kyle Coleman #2.4 103/ulNormal1.2-3.8The [facility] HospitalComment on above:Performed By: #### CBC #### [facility] [address] [address] [address] Kyle Cabrerahocytes/100 WBC (Bld)33.1 %Heospz09.5-60.0The [facility] HospitalComment on above:Performed By: #### CBC #### [facility] [address] [place] [address] Dr. Kyle JacobsenUAL DIFF REQNONormalThe [facility] HospitalComment on above: Performed By: #### CBC #### [facility] [facility] [address] [place] [address] Dr. Kyle Christian (RBC) [Entitic mass]30.1 arVvghbm09.9-34.0The [facility] HospitalComment on above:Performed By: #### CBC #### [facility] [address] [place] [address] Dr. Kyle Christian (RBC) [Mass/Vol]34.5 g/zBPpgben47.9-35.2The [facility] HospitalComment on above:Performed By: #### CBC #### [facility] [address] [place] [address] Dr. Kyle Christian (RBC) [Entitic vol]87.4 bBFfukff93.0-94.0The [facility] HospitalComment on above:Performed By: #### CBC #### [facility] [address] [place] [address] Dr. Kyle Maddox #1.6 103/ulCritically high0.3-0.8The [facility] Comment on above:Performed By: #### CBC #### [facility] [address] [address] [address] Kyle AdamsonMonocytes/100 WBC (Bld)22.1 %Critically high1.7-12.0The [facility] on above:Performed By: #### CBC #### [facility] [address] [place] [address] Dr. Kyle RonUT #2.8 103/ulNormal1.4-6.5The [facility] HospitalComment on above:Performed By: #### CBC #### [facility] [address] [place] [address] Dr. Kyle Ronutrophils/100 WBC (Bld)39.7 %Critically low43.0-75.0The [facility] HospitalComment on above:Performed By: #### CBC #### [facility] [address] [place] [address] Dr. Kyle AdamsonPlatelet mean volume (Bld) [Entitic vol]9.3 fLCritically low 9.5-13.5The [facility] HospitalComment on above:Performed By: #### CBC #### [facility] [address] [place] [address] Dr. Kyle AdamsonPLT282 103/vnDflcnq351-353Lck [facility] HospitalCommarlette [facility] on above: Performed By: #### CBC #### [facility] [address] [place] [address] Dr. Kyle AdamsonRBC5.94 106/ulNormal4.70-6.10The [facility] on above:Performed By: #### CBC #### [facility] [address] [place] [address] Dr. Kyle AdamsonWBC7.1 103/ulNormal4.0-11.0The [facility] on above: Performed By: #### CBC #### [facility] [address] [place] [address] Dr. Kyle AdamsonCovid-19 PCR (CVDTBH)on [id number]-CoV-2 (COVID-19) RNA RADHA+probe Ql (Unsp spec)Not detectedNormalNOT DETECTEDThe [facility] Comment on above:Result Comment: When diagnostic [...] for this test is supported by the [employer] of Health and Human Service's declaration that [...] longer be used).Performed By: #### CVDTB #### [facility] [address] [place] [address] Dr. Kyle Platt PANEL (PCR)on [id number] F 40/41Not detectedNormal NOT DETECTEDThe [facility] HospitalComment on above:Performed By: #### GIPANEL #### [facility] [address] [place] [address] Dr. Kyle AdamsonAstrovirusNot detectedNormalNOT DETECTEDWyandot Memorial Hospital Comment on above:Performed By: #### GIPANEL #### [facility] [address] [place] [address] Dr. Kyle Bishop. Diff toxin A/BNot detectedNormalNOT DETECTEDThe [facility] HospitalComment on above:Performed By: #### GIPANEL #### [facility] [address] [place] [address] Dr. Kyle ThomasonpylobacterDetectedCritically abnormalNOT DETECTEDThe [facility] HospitalComment on above:Performed By: #### GIPANEL #### [facility] [address] [place] [address] Dr. Kyle AdamsonCryptosporidiumNot detectedNormalNOT DETECTEDThe [facility] HospitalComment on above:Performed By: #### GIPANEL #### [facility] [address] [address] [address] Kyle Rueda. CayetanensisNot detectedNormalNOT DETECTEDThe [facility] HospitalComment on above:Performed By: #### GIPANEL #### [facility] [address] [address] [address] Kyle George Coli V811Mbm ApplicableNormalNot ApplicableThe [facility] HospitalComment on above:Performed By: #### GIPANEL #### [facility] [address] [address] [address] Kyle George histolyticaNot detectedNormalNOT DETECTEDThe [facility] Comment on above:Performed By: #### GIPANEL #### [facility] [address] [address] [address] Kyle HoltAECNcorrina detectedNormalNOT DETECTEDThe [facility] HospitalComment on above:Performed By: #### GIPANEL #### [facility] [address] [address] [address] Kyle HoltIECNcorrina detectedNormalNOT DETECTEDThe [facility] HospitalCom[facility] on above:Performed By: #### GIPANEL #### [facility] [address] [address] [address] Kyle HoltPECLuigi detectedNormalNOT DETECTEDThe [facility] HospitalCom[facility] on above:Performed By: #### GIPANEL #### [facility] [address] [address] [address] Kyle HoltTECNot detectedNormalNOT DETECTEDThe [facility] HospitalComment on above:Performed By: #### GIPANEL #### [facility] [address] [address] [address] Kyle Sargent. LambliaNot detectedNormalNOT DETECTEDThe [facility] Comment on above:Performed By: #### GIPANEL #### [facility] [address] [address] [address] Kyle Hutchison CONTROLSPASSEDNoalThSycamore Medical CenterComment on above:Performed By: #### JONELL #### [facility] [address] [address] [address] Kyle Ngo [facility] HEADERGI [facility] Comment on above:Performed By: #### DENNISE #### [facility] [address] [address] [address] Kyle Velez ECOLIGI PANEL DIARRHEAGENIC E.COLI / SHIGELLAUniversity Hospitals Ahuja Medical CenterComment on above:Performed By: #### DENNISE #### [facility] [address] [address] [address] Kyle Velez INFOSEE Grant HospitalComment on above: Result Comment: EAEC- Enteroaggregative E. Coli EPEC- Enteropathogenic E. Coli ETEC- Enterotoxigenic E. Coli lt/st STEC- Shigella-like toxin-producing E. Coli stx1/stx2 EIEC- Shigella/Enteroinvasive E. ColiPerformed By: #### DENNISE #### [facility] [address] [place] [address] Dr. Kyle Velez PARASITESGI PANEL [facility] Comment on above:Performed By: #### JONELL #### [facility] [address] [address] [address] Kyle Velez VIRUSGI PANEL [facility] CenterComment on above:Performed By: #### DENNISE #### [facility] [address] [address] [address] Kyle Shipleyrovirus GI/GIINot detectedNormalNOT DETECTEDWyandot Memorial HospitalComment on above:Performed By: #### DENNISE #### [facility] [address] [address] [address] Kyle Keyes. ShigelloidesNot detectedNormalNOT DETECTEDThe [facility] HospitalComment on above:Performed By: #### DENNISE #### [facility] [address] [address] [address] Yilan ChangRotavirus ANot detectedNormalNOT DETECTEDThe [facility] Comment on above:Performed By: #### GIPANEL #### [facility] [address] [place] [address] Dr. Kyle AdamsonSalmonellaNot detectedNormalNOT DETECTEDThe [facility] Comment on above:Performed By: #### GIPANEL #### [facility] [address] [address] [address] Kyle AdamsonSapovirusNot detectedNormalNOT DETECTEDThe [facility] Comment on above:Performed By: #### GIPANEL #### [facility] [address] [address] [address] Kyle AdamsonSTECNot detectedNormalNOT DETECTEDThe [facility] HospitalComment on above:Performed By: #### GIPANEL #### [facility] [address] [place] [address] Dr. Kyle CarbajalbrioNot detectedNormalNOT DETECTEDThe [facility] HospitalComment on above:Performed By: #### GIPANEL #### [facility] [address] [place] [address] Dr. Kyle Gamezio CholeraNot detectedNormalNOT DETECTEDWyandot Memorial Hospital Comment on above:Performed By: #### GIPANEL #### [facility] [address] [place] [address] Dr. Kyle Zafar. EnterocoliticaNot detectedNormalNOT DETECTEDThe [facility] HospitalComment on above:Performed By: #### GIPANEL #### [facility] [address] [place] [address] Dr. Kyle OliveiraF CHEM 8 (BAS METB)on 54-74-1076Wiouu gap [Moles/Vol]17.9 mmol/LNormalThe [facility] HospitalComment on above:Performed By: #### BMP #### [facility] [address] [place] [address] Dr. Kyle AdamsonCalcium [Mass/Vol]9.6 mg/dLNormal8.5-10.1[facility] Comment on above:Performed By: #### BMP #### [facility] [address] [address] [address] Kyle AdamsonChloride [Moles/Vol]98 mmol/IDojrft76-821Vun [facility] Comment on above:Performed By: #### BMP #### [facility] [address] [address] [address] Kyle AdamsonCO2 [Moles/Vol]24.4 mmol/LSmwdfh93.0-32.0The [facility] Comment on above:Performed By: #### BMP #### [facility] [address] [address] [address] Kyle AdamsonCreatinine [Mass/Vol]1.65 mg/dLCritically high0.70-1.30The [facility] HospitalComment on above:Performed By: #### BMP #### [facility] [address] [address] [address] Wright ChangEGFR-AF LBRMXUEO70 mL/min/1.03n4Uzdetbtwiu low>=60The [facility] HospitalComment on above:Performed By: #### BMP #### [facility] [address] [address] [address] Kyle HoltGFR-NON AF DCGYSIIH02 mL/min/1.88t4Byimmuovwl low>=60The [facility] HospitalComment on above:Performed By: #### BMP #### [facility] [address] [address] [address] Kyle AdamsonGlucose [Mass/Vol]124 mg/dLCritically fius96-843Ifz [facility] HospitalComment on above:Performed By: #### BMP #### [facility] [address] [address] [address] Kyle AdamsonPotassium [Moles/Vol]4.3 mmol/LNormal3.5-5.1The [facility] Comment on above:Performed By: #### BMP #### [facility] [address] [address] [address] Kyle AdamsonSodium [Moles/Vol]136 mmol/IDktzor811-881Dss [facility] Comment on above:Performed By: #### BMP #### [facility] [address] [address] [address] Kyle AdamsonUrea nitrogen [Mass/Vol]31.0 mg/dLCritically high7.0-18.0The [facility] on above:Performed By: #### BMP #### [facility] [address] [place] [address] Dr. Kyle AdamsonUrea nitrogen/Creatinine [Mass ratio]18.8 mg/mgNoMetroHealth Parma Medical CenterComment on above:Performed By: #### BMP #### [facility] [address] [place] [address] Dr. Kyle AdamsonCT ABD/PELV W CONon [id number] ABD/PELV W CONEXAMINATION: CT ABD/PELV W CON, [...] Electronically authenticated by: TERRA GUNTER Date: 2022-05-31 07:13[facility] Ahuja Medical CenterCREATININEon [id number] [Mass/Vol]0.95 mg/dLNormal 0.70-1.30The Joanie HospitalComment on above:Performed By: #### CREA #### [facility] [address] [place], [place] [address] Dr. Kyle HoltGFR-AF KENYAN>60Normal>=60The [facility] HospitalComment on above:Performed By: #### CREA #### [facility] [address] [place], [place] [address] Dr. Wright ChangEGFR-NON AF KENYAN>60Normal>=60The [facility] HospitalComment on above:Performed By: #### CREA #### [facility] [address] [address] [address] Wright ChangCT Sinus w/o Contrast*on [id number] Sinus w/o Contrast*CLINICAL HISTORY: Sinus drainage. No [...] signed by Elda Mills on 02/08/2022 0855NormalNorthern [facility] SpecialistBasic Metabolic Panelon 78-78-2896Bmwbl gap [Moles/Vol]17 mmol/SQypuhg48-50Pkcuhcgz [facility] SpecialistComment on above:Result Comment: Effective 07/30/2019 reference range changed.Performed By: #### BMP #### [facility] [address] [place], [place] [id number] [Mass/Vol]9.6 mg/dLNormal8.6-10.2Northn [facility] SpecialistComment on above:Performed By: #### BMP #### [facility] [address] [place], [place] [id number] [Moles/Vol]103 mmol/USrdxsj49-447Lzfssfwi [place] [facility] SpecialistComment on above:Performed By: #### BMP #### [facility] [address] [place], [place] [id number] [Moles/Vol]23 mmol/VIrchxs80-82Widhndty [place] [facility] SpecialistComment on above:Performed By: #### BMP #### [facility] [address] [place], [place] [id number] [Mass/Vol]0.9 mg/dLNormal0.7-1.4NoGenesis Hospital SpecialistComment on above:Performed By: #### BMP #### [facility] [address] [place], [place] [id number] mL/min/1.23e9Qmjjiu>60NortHolmes County Joel [facility]omerene [facility] Hospital SpecialistComment on above:Performed By: #### BMP #### [facility] [address] [place], [place] [id number] mL/min/1.35e2Icuzrn>60NortHolmes County Joel [facility]omerene [facility] Hospital SpecialistComment on above:Performed By: #### BMP #### [facility] [address] [place], [place] [id number] [Mass/Vol]113 mg/kTGfyq54-99Skyzhxcq [place] Medical SpecialistComment on above:Result Comment: For FASTING Glucose --- ADA reference ranges: Normal 65-99 mg/dl Prediabetes 100-125 Diabetes >/= 126Performed By: #### BMP #### [facility] [address] [place], [place] [id number] [Moles/Vol]5.0 mmol/LNormal3.5-5.5NoGenesis Hospital SpecialistComment on above:Result Comment: Specimen is hemolyzed. Results may be affected.Performed By: #### BMP #### [facility] [address] [place], [place] [id number] [Moles/Vol]138 mmol/EVjcwsq501-103Aegczwxb [facility] SpecialistComment on above:Performed By: #### BMP #### [facility] [address] [place], [place] [id number] nitrogen [Mass/Vol]14 mg/dLNormal7-25Northern [facility] SpecialistComment on above:Performed By: #### BMP #### [facility] [address] [place], [place] [id number] Vital Signs Date TimeVital SignValuePerforming BepauvhebDmwdbkvb05-22-1725 10:55-0400Body .42 cmBenjamin Ball DO Work Phone: [phone] [place], [place] [address]10-14-2025 10:55-0400 Body mass index (BMI) [Ratio]35.8 kg/g3Xuthilxu Ball DO Work Phone: [phone]10-14-2025 10:55-0400 Body .15 kgBenjamin Ball DO Work Phone: [phone])606-[address] [place], [place] [address]10-14-2025 10:55-0400 Diastolic blood mm[Hg]Mark Ball DO Work Phone: [phone] [place], [place] [address]10-14-2025 10:55-0400 Heart rate79 /minBenjamin Ball DO Work Phone: [phone] [place], [place] [address]10-14-2025 10:55-0400 Respiratory rate12 /minBenjamin Ball DO Work Phone: [phone])374-[address] [place], [place] [address]10-14-2025 10:55-0400 Systolic blood plqpyjlf539 mm[Hg]Mark Ball DO Work Phone: [phone] [place], [place] [address]308-20-2025 08:45-0400 Body mass index (BMI) [Ratio]36.41 kg/e4Zgtbuj Tez DO Work Phone: [facility] HospitalDwamcklsjj76-81-6132 08:45-0400Body ufthgq810.19 kgLeanne Tez DO Work Phone: [facility] HospitalGufvstpdhr30-63-2771 08:45-0400Diastolic blood pxgoyjlc31 mm[Hg]Jen Tez DO Work Phone: 1(763)588-[facility] HospitalHjbwpsqhan10-93-1785 08:45-0400Heart rate77 /min Jen Tez DO Work Phone: 1(929)3-[facility]chezBarn[facility] HospitalDmzcwdkezh49-36-1369 08:45-3040KeK0% (BldA) [Mass fraction]95 %Jen Tez DO Work Phone: 1(620)8-[address] [place], [place] [address]Lxfwgfrgjm03-85-1481 08:45-0400Systolic blood dorhymge170 mm[Hg]Jen Tez DO Work Phone: 1(532)[address] [place], [place] [address]707-08-2025 09:29-0400Body uzrqxe983.42 cmBenjamin Ball DO Work Phone: [facility]07-08-2025 09:29-0400 Body mass index (BMI) [Ratio]36.1 kg/d2Sjxhvpsq Ball DO Work Phone: [facility]07-08-2025 09:29-0400 Body lxccyg111.28 kgBenjamin Ball DO Work Phone: [facility]06-25-2025 09:00-0400 Body mass index (BMI) [Ratio]36.41 kg/l1Umpmnx Tez DO Work Phone: 1(627)9-[facility] HospitalJivmqwrizt30-61-9562 09:00-0400Body magoeu164.19 kgLeanne Tez DO Work Phone: [phone])882-[address] [place], [place] [address]Ywfsnabqsq72-73-5047 09:00-0400Diastolic blood mm[Hg]Jen Tez DO Work Phone: 1(824)050-[facility] HospitalIwxfsyszra36-48-5282 09:00-0400Heart rate94 /min Jen Tez DO Work Phone: [phone])691-[facility] HospitalAhkeuhxqxu32-15-2945 09:00-8675TqX6% (BldA) [Mass fraction]95 %Jen Tez DO Work Phone: [facility] HospitalMunsvsslwk49-36-9332 09:00-0400Systolic blood vtkznvla428 mm[Hg]Jen Tez DO Work Phone: [facility] HospitalFdvrskgmpl37-58-0709 14:01-0400Body dglcaq450.42 cmBenjamin Ball DO Work Phone: [facility]06-16-2025 14:01-0400 Body mass index (BMI) [Ratio]36.1 kg/p6Zwhpycxr Ball DO Work Phone: [phone]06-16-2025 14:01-0400 Body tkwzxdpahye60.2 [degF]Mark Ball DO Work Phone: [phone]06-16-2025 14:01-0400 Body omtpxi549.28 kgBenjamin Ball DO Work Phone: [phone]06-16-2025 14:01-0400 Diastolic blood xmjakdqu27 mm[Hg]Mark Ball DO Work Phone: [phone]06-16-2025 14:01-0400 Heart rate83 /minBenjamin Ball DO Work Phone: [phone]06-16-2025 14:01-0400 Systolic blood kqxbxaky813 mm[Hg]Mark Ball DO Work Phone: [phone]04-11-2025 09:15-0400 Body .4 cmPaul Biedenbach DO Work Phone: [facility] HospitalMallpvfhcy55-55-9129 09:15-0400Body mass index (BMI) [Ratio]36.28 kg/m2Paul Biedenbach DO Work Phone: [facility] HospitalXggunjdair41-91-0924 09:15-0400Body tbqjes292.74 kgPaul Biedenbach DO Work Phone: [facility] HospitalQcwzywvnmb74-75-5008 15:56-0400Body .42 cmHolmes [facility]2025 15:56-0400Body mass index (BMI) [Ratio]37.3 kg/g0MeodybecbHolmes County [facility]rene [facility] Hospital2025 15:56-0400Body ngqbbi737.48 kgHolmes County [facility]2025 15:56-0400Diastolic blood mm[Hg][facility]2025 15:56-0400 Heart rate80 /[facility]2025 15:56-0400 Respiratory rate12 /[facility]2025 15:56-0400 Systolic blood kxuyzuvi945 mm[Hg][facility]01-16-2025 10:10-0500Body .42 cmHolmes County [facility]01-16-2025 10:10-0500Body mass index (BMI) [Ratio]36.8 kg/f8NepjiptnvHolmes County [facility]omerene [facility] Hospital01-16-2025 10:10-0500Body hiuziz173.6 kgHolmes County [facility] 08-09-2024 10:10-0500Diastolic blood lxitzsjr98 mm[Hg][facility]01-16-2025 10:10-0500Heart rate89 /[facility] 08-09-2024 10:10-0500Respiratory rate12 /[facility] 08-09-2024 10:10-0500Systolic blood mm[Hg][facility]05-06-2024 10:57-0400Diastolic blood mm[Hg]DO Mark Ball Work Phone: [facility]05-06-2024 10:57-0400 Heart rate75 /minDO Mark Ball Work Phone: [facility]05-06-2024 10:57-0400 Respiratory rate18 /minDO Mark Ball Work Phone: [facility]05-06-2024 10:57-0400 SaO2% (BldA) [Mass fraction]98 %DO Mark Ball Work Phone: [facility]05-06-2024 10:57-0400 Systolic blood tubqlwrz541 mm[Hg]DO Mark Ball Work Phone: [facility]05-06-2024 09:16-0400 Body kmisvo237.42 cmDO Mark Ball Work Phone: [facility]05-06-2024 09:16-0400 Body ojytag228.56 kgDO Mark Ball Work Phone: [facility]10-23-2023 14:45-0400 Body ljkkwi929.42 cmMichael Blank Other [employer] Other 10-23-2023 14:45-0400Body mass index (BMI) [Ratio] 36.15 kg/m4Nzotypj Blank Other [employer] Other 10-23-2023 14:45-0400Body olmbuhmfhfq45.9 [degF] Mulugeta Bella Other [employer] Other 10-23-2023 14:45-0400Body .29 kgMichael Blank Other [employer] Other 10-23-2023 14:45-0400Diastolic blood mm[Hg] Mulugeta Bella Other [employer] Other 10-23-2023 14:45-0400Systolic blood didjkxcs084 mm[Hg] Mulugeta Bella Other [employer] Other 10-20-2023 10:30-0400Body .42 cmBenjamin Ball Other [employer] Other 10-20-2023 10:30-0400Body mass index (BMI) [Ratio] 36.62 kg/s7Ynabgqgc Ball Other [employer] Other 10-20-2023 10:30-0400Body .92 kgBenjamin Ball Other [employer] Other 10-20-2023 10:30-0400Diastolic blood mm[Hg] Mark Ball Other [employer] Other 10-20-2023 10:30-0400Respiratory rate12 /minBenjamin Ball Other [employer] Other 10-20-2023 10:30-0400Systolic blood pckfdfer851 mm[Hg] Mark Ball Other [employer] Other 03-10-2023 11:30-0500Body qmeweu205.42 cmBenjamin Ball Other [employer] Other 03-10-2023 11:30-0500Body mass index (BMI) [Ratio] 36.15 kg/r9Pqyayrku Ball Other [employer] Other 03-10-2023 11:30-0500Body qfulrt566.29 kgBenjamin Ball Other [employer] Other 03-10-2023 11:30-0500Diastolic blood ucgvxacm02 mm[Hg] Mark Ball Other [employer] Other 03-10-2023 11:30-0500Systolic blood xvupctyy979 mm[Hg] Mark Ball Other [employer] Other 09-27-2022 10:45-0400Body ufbzla372.42 cmCameron Wnay Other [employer] Other 09-27-2022 10:45-0400Body mass index (BMI) [Ratio] 36.28 kg/j2Odnvwpu Ditty Other [employer] Other 09-27-2022 10:45-0400Body ldiigm225.74 kgCameroeddi Ditty Other [employer] Other 09-27-2022 10:45-0400Diastolic blood xqgealyj844 mm[Hg]Axel Syedtty Other [employer] Other 09-27-2022 10:45-0400Systolic blood mmtomhyi376 mm[Hg] Axel Sydetty Other [employer] Other 07-20-2022 17:30-0400Body gdoytr576.42 cmDavid Hykes Other [employer] Other 07-20-2022 17:30-0400Body mass index (BMI) [Ratio] 35.09 kg/w9Mxmju Hykes Other [employer] Other 07-20-2022 17:30-0400Body .66 kgDavid Hykes Other [employer] Other Encounters Encounter DateEncounter TypeCare ProviderFacilityStart: 05-07-2025 End: 40-85-7500gzqlibbbfgWvarnyuy Ball DO Work Phone: [facility] Work Phone: Start: 05-07-2025 End: 00-74-4674Wnvqruj encounter procedureBeirwin Wheatley [facility] Work Phone: Start: 05-07-2025 End: 37-29-1808Dkwqwjz encounter statusBeirwin Wheatley [facility]: 03-[facility]2025 End: 54-08-7461Gzwvdv flowsHiren Shanks Tez DO Work Phone: [facility] FNR PULMStart: 03-13-2025 End: 14-87-0709Lzegnk flowsheetLesamanthae Rimma Tez DO Work Phone: [facility] FNR PULMStart: 03-13-2025 End: 74-33-8275Nimygp outpatient visit 25 minutesLevivek Shanks Tez DO Work Phone: noms FNR PULMComment on above:Chronic obstructive pulmonary disease, unspecified COPD type (HCC) (Primary Dx); Cigarette smoker; HypersomnolenceStart: 01-29-2025 End: 07-46-9240wlkiyybiaoIiolcyyn Ball Work Phone: [facility] Work Phone: Start: 01-29-2025 End: 67-15-8159Axqoide encounter procedureAditya Hickman [facility] Work Phone: Start: 01-16-2025 End: 08-17-0949Sxjjkf flowsHiren Shanks Tez DO Work Phone: [facility] FNR PULMStart: 01-16-2025 End: 94-94-4035Rboria flowsheetLeanne Rimma Tez DO Work Phone: [facility] FNR PULMStart: 01-16-2025 End: 07-40-9265Htydlh outpatient new 45 minutesLevivek Shanks Tez DO Work Phone: noms FNR PULMComment on above:Chronic obstructive pulmonary disease, unspecified COPD type (HCC) (Primary Dx); Cigarette smokerStart: 01-16-2025 End: 65-14-8662lyapkcqdgsVWPHLD K STRACKNot AvailableStart: 01-07-2025 End: 17-17-6068Mplsnhh encounter statusLevivek Reagan DO Work Phone: noms HealthcareStart: 01-07-2025 End: 76-45-6513Jhnqezn encounter procedureMulugeta Bella MD-[facility] Infect Dis Work Phone: Start: 70-94-4861Esq-patient / Non-visitOutside Provider-[facility] Work Phone: Start: 12-25-2024 End: 48-58-8400Ahrpfudarrius Toro MD Work Phone: [facility] SWS DERMStart: 12-25-2024 End: 78-90-5836Zbbplt flowsheetEmxenia Toro MD Work Phone: [facility] SWS DERMStart: 12-25-2024 End: 41-72-7110Lugkjr outpatient visit 25 minutesEmily Rama Toro MD Work Phone: noms SWS DERMComment on above:Tinea manuum (Primary Dx); Skin tag; Neoplasm of unspecified behavior of bone, soft tissue, and skin; Actinic keratosisStart: 12-25-2024 End: 03-24-0740twiasfybjnNBMLU A PETITTINot AvailableStart: 12-18-2024 End: 86-20-5759Hflhvlesa encounterBenjamin E Ball DO Work Phone: n[facility] FNR FMStart: 99-48-6653qftwhjswgoPhbyrvpbxParma [facility] Work Phone: Start: 50-56-5742Uxk-patient / Non-visitFirlowess Physician Group-[facility] Work Phone: Start: 11-02-2024 End: 67-90-6617Vrmgnc Luis Cardona DO Work Phone: [facility] ENT SANDUSKYStart: 11-02-2024 End: 40-43-4870Nltyha flowsheetPaul S Biedenbach DO Work Phone: [facility] ENT SANDUSKYStart: 11-02-2024 End: 98-64-4779cphsxmdtdoXGWJ S BIEDENBACHNot AvailableStart: 11-02-2024 End: 65-38-3308Ctlkpu outpatient visit 25 minutesPaul S Biedenbach DO Work Phone: noms ENT SANDUSKYComment on above:Chronic cough (Primary Dx); Chronic rhinitis; Tobacco abuse; Laryngopharyngeal reflux (LPR)Start: 38-44-1543Irz-patient / Non-visitE[facility] Medical Center Physician GroupL[facility] Work Phone: Start: 10-17-2024 End: 45-16-8902ibjxphrpvbYbeusekbeUC [facility] Work Phone: Start: 10-17-2024 End: 23-14-0275Yrowyat encounter procedureEcu Health [facility] Work Phone: Start: 08-14-2024 End: 53-75-6436Teoedr flowsheetNatalie A Felter QUALITY CONTROL INSPECTOR HEADING-MRP CONTROLLER Work Phone: noms SWS DERMStart: 08-14-2024 End: 72-20-8926Kgjwii flowsheetNatalie A Felter QUALITY CONTROL INSPECTOR HEADING-MRP CONTROLLER Work Phone: [facility] SWS DERMStart: 08-14-2024 End: 20-86-1192Fmnkpm outpatient visit 10 minutesNatalie A Felter QUALITY CONTROL INSPECTOR HEADING-MRP CONTROLLER Work Phone: noms SWS DERMComment on above:Tinea manusStart: 08-14-2024 End: 03-21-8339bhyknshfdeXKGUXQD A FELTERNot AvailableStart: 08-09-2024 End: 46-73-2542Ykctgde encounter procedureEcu Health Medical Center Physician GroupA[facility] Work Phone: Start: 06-14-2024 End: 23-71-3409Gqxhzk flowsheetNatalie A Felter QUALITY CONTROL INSPECTOR HEADING-MRP CONTROLLER Work Phone: [facility] DERMStart: 06-14-2024 End: 21-97-5870Lqimgt flowsheetNatalie A Felter QUALITY CONTROL INSPECTOR HEADING-MRP CONTROLLER Work Phone: [facility] DERMStart: 06-14-2024 End: 95-61-8264Cvzwunsiy encounterNatalie A Felter QUALITY CONTROL INSPECTOR HEADING-MRP CONTROLLER Work Phone: [facility] DERMStart: 06-14-2024 End: 50-78-3726Yhvukm outpatient visit 15 minutesNatalie A Felter QUALITY CONTROL INSPECTOR HEADING-MRP CONTROLLER Work Phone: [facility] DERMComment on above:Tinea manus; High risk medication use; Other atopic dermatitisStart: 06-14-2024 End: 91-56-9575wjiuenrydcPMMBXNL A FELTERNot AvailableStart: 05-31-2024 End: 98-89-1666Heohqp flowsheetNatalie A Felter QUALITY CONTROL INSPECTOR HEADING-MRP CONTROLLER Work Phone: [facility] DERMStart: 05-31-2024 End: 19-11-3770Lmaksi flowsheetNatalie A Felter QUALITY CONTROL INSPECTOR HEADING-MRP CONTROLLER Work Phone: [facility] DERMStart: 05-31-2024 End: 31-69-6409Xgxzsh outpatient visit 15 minutesNatalie A Felter QUALITY CONTROL INSPECTOR HEADING-MRP CONTROLLER Work Phone: [facility] DERMComment on above:Tinea manus (Primary Dx); Actinic keratosis; Other atopic dermatitisStart: 05-31-2024 End: 83-48-5734fmnwhogvisRRXRDIT A FELTERNot AvailableStart: 05-17-2024 End: 31-62-5595Tyscml flowsheetNatalie A Felter QUALITY CONTROL INSPECTOR HEADING-MRP CONTROLLER Work Phone: [facility] DERMStart: 05-17-2024 End: 67-02-5905Pqsnas flowsheetNatalie A Felter QUALITY CONTROL INSPECTOR HEADING-MRP CONTROLLER Work Phone: [facility] SWS DERMStart: 05-17-2024 End: 47-46-8514Hymypn outpatient visit 25 minutesNatalie A Felter QUALITY CONTROL INSPECTOR HEADING-MRP CONTROLLER Work Phone: N[facility] SWS DERMComment on above:Tinea manus (Primary Dx); Encounter for removal of suturesStart: 05-17-2024 End: 12-00-1518tyjesvwkedWOWVADY A FELTERNot AvailableStart: 05-07-2024 End: 38-87-9706Mvwbvg flowsheetNatalie A Felter QUALITY CONTROL INSPECTOR HEADING-MRP CONTROLLER Work Phone: n[facility] SWS DERMStart: 05-07-2024 End: 79-52-1600Zownsx flowsheetNatalie A Felter QUALITY CONTROL INSPECTOR HEADING-MRP CONTROLLER Work Phone: [facility] SWS DERMStart: 05-07-2024 End: 06-72-6499Xqvegbc encounter procedureNatalie A Felter QUALITY CONTROL INSPECTOR HEADING-MRP CONTROLLER Work Phone: NOZU SWS DERMComment on above:Rash and other nonspecific skin eruptionStart: 05-07-2024 End: 11-22-1985twbinwahzhOHZTDGJ A FELTERNot AvailableStart: 78-12-9869Fqbafhm encounter statusElyria Memorial Hospitaltart: 11-28-2023 End: 34-19-5446lvnmxkpgymHjfukba J DittyFacility:[facility] Hospitaltart: 96-23-0634Wxz-patient / Non-visitDO Mark Wheatley Work Phone: [facility] Work Phone: Start: 11-28-2023 End: 67-89-8231Snilmsqjq to same day surgery centerDO Mark Wheatley Work Phone: [facility] Work Phone: Start: 11-28-2023 End: 66-69-0112atwoboscrfPT Mark Wheatley Work Phone: [facility] Work Phone: Start: 08-29-2023 End: 11-28-0427yajozfzpokUyizczbb Ball Other [employer] Other Start: 79-30-0430Evcllp outpatient visit 15 minutes Mark BallFPG [facility] ClinicStart: 08-25-2023 End: 61-50-1602ltxfgzvuvbQywtviis Ball Other [employer] Other Start: 16-73-2667Hyvalr outpatient visit 15 minutes Mark BallFPG [facility] ClinicStart: 05-16-2023 End: 09-35-6160vglspqjcijPibysag Blank Other [facility] [employer] Other Start: 20-07-6153Jxvony outpatient visit 25 minutes Mulugeta BlankFPG Infectious DiseaseStart: 05-13-2023 End: 24-44-6238kcrhwdwipkEmgskwjc Ball Other [facility] [employer] Other Start: 58-90-5955Esqfmu outpatient visit 25 minutes Mark BallFPG [facility] ClinicStart: 05-02-2023 End: 98-11-3196ksjvnndboxXhpayky Blank Other [facility] [employer] Other Start: 77-54-6646Sezeovtmd encounterMichael BlankFPG Infectious DiseaseStart: 04-28-2023 End: 42-12-6780ghcmentsfaXlcjfdhr Ball Other [facility] [employer] Other Start: 89-45-8195Yifxpfaar encounterBenjamin BallFPG [facility] ClinicStart: 04-20-2023 End: 70-98-0871ttgklzfbiwVoftxuln Ball Other [employer] Other Start: 98-94-7757Bmwxerrwr encounterBenjamin BallFPG [facility] ClinicStart: 03-31-2023 End: 72-54-4054tarbjogetqObizlwbc Ball Other [employer] Other Start: 45-68-4774Ngepbgirf encounterBenjamin BallFPG [facility] ClinicStart: 01-26-2023 End: 80-52-9663fqjmudteaeQgtdujag Ball Other [employer] Other Start: 82-93-4030Wharvhomg for general adult medical examination without abnormal findingsBenjamin BallFPG [facility] ClinicStart: 79-41-4969Mhkiavmld encounterBenjamin BallFPG [facility] ClinicStart: 11-29-2022 End: 54-40-3864kmqqswivqvFvphvuss Ball Other [employer] Other Start: 59-83-6229Xplqnd outpatient visit 15 minutes Mark BallFPG [facility] ClinicStart: 10-01-2022 End: 36-23-6475qvllgmsejsCmwfsawd Ball Other [employer] Other Start: 04-06-4251Ccliet outpatient visit 15 minutes Mark BallFPG [facility] ClinicStart: 07-30-5137Iidstylkr encounterBenjamin BallFPG [facility] ClinicStart: 09-27-2022 End: 31-76-2084wddxlpamctGP MARK BALLFacility:O3Ueyzl: 09-24-2022 End: 03-91-5753hhftdbvvcuVghcyiaz Ball Other [employer] Other Start: 60-88-5826Ovpaee outpatient visit 15 minutes Mark BallFPG [facility] ClinicStart: 09-06-2022 End: 93-78-7769evsbpxbfbqOcqffceh Ball Other [employer] Other Start: 39-94-2778Psirvo outpatient visit 15 minutes Mark BallFPG [facility] ClinicStart: 06-02-2022 End: 57-26-8693soccmbdwydJmouiri Ditty Other [employer] Other Start: 57-73-3685Gwuupzzab encounterCameron DittyFPG GastroenterologyStart: 05-28-2022 End: 02-85-1655kohbalhdotGC DOCTOR MISCFacility:H0Lpccd: 05-27-2022 End: 63-13-0787uvwuqcasumJtmnnph Ditty Other [employer] Other Start: 24-98-0867Alefknkrn encounterCameron DittyFPG GastroenterologyStart: 05-24-2022 End: 79-04-5089fpjytwwrimGczzpqk Ditty Other [employer] Other Start: 33-73-7791Pvpisrcrn encounterCameron DittyFPG GastroenterologyStart: 05-10-2022 End: 38-79-9022xiiwjrxktkAbxjhuc Ditty Other [employer] Other Start: 53-14-2164Tjgduulgy encounterCameron DittyFPG GastroenterologyStart: 04-26-2022 End: 60-82-9988tlvfzowwapWnqedyb Ditty Other [employer] Other Start: 87-15-7867Lxmgmxmdn encounterCameron DittyFPG GastroenterologyStart: 04-20-2022 End: 17-67-5854hpkidcigsnTujlpvu Ditty Other [employer] Other Start: 92-07-0926Dkvukwv encounter procedureCameron DittyFPG GastroenterologyStart: 03-18-2022 End: 79-95-9456vdseqwomipPwkpmai Ditty Other [employer] Other Start: 20-05-1660Pdqlsrfph encounterCameron DittyFPG GastroenterologyStart: 03-01-2022 End: 91-65-8405skopigivsgQgfeb Hykes Other [employer] Other Start: 88-73-8341Skwojqquj encounterDavid HykesFPG GastroenterologyStart: 02-22-2022 End: 25-97-7414udoagaspqrScqyk Hykes Other [employer] Other Start: 32-49-5634Uoozeqxfw encounterDavid HykesFPG GastroenterologyStart: 02-10-2022 End: 54-35-8095vptuhxtxjiMrtka Hykes Other [employer] Other Start: 92-46-3916Wmbwkq outpatient visit 25 minutes Terra Zhou GastroenterologyStart: 07-80-6729Ykybqoktn for other preprocedural examinationDR STERLING [facility] HospitalStart: 12-01-2021 End: 59-63-7013cbwxvujljqTP MARK WHEATLEYFacility:B2Ldvol: 12-01-2021 End: 35-35-2522Iepwuzwmn for other preprocedural examinationDR MARK WHEATLEY Facility:W0Zuhiv: 08-51-0417Tyasx health examinationBenkailashsmiley Wheatley Other [place] [employer] Other Procedures DateProcedureProcedure DetailPerforming ClinicianStart: 50-86-1442CQYSOHEFTNW SKIN LESIONEmily Rama Toro MD Work Phone: Start: 30-47-2193CCFP / NAIL BIOPSYEmily Rama Toro MD Work Phone: Start: 13-30-8557KFWFOPNJQTZ SKIN LESIONNatalie A Shawn QUALITY CONTROL INSPECTOR HEADING-MRP CONTROLLER Work Phone: Start: 05-07-2024 End: 89-27-5583ULQS / NAIL BIOPSYNatalie A Shawn QUALITY CONTROL INSPECTOR HEADING-MRP CONTROLLER Work Phone: Start: 72-23-6270VlymjqwxknnAQ Mark Wheatley Work Phone: Start: 19-65-5083Mvbicok examination of patient Mark Wheatley Other Start: 12-30-1451Pfhobhcr mellitus screeningBensteven Wheatley Other Start: 15-04-4458Wndhmjpuriisrk screeningMark Wheatley Other Start: 18-23-7182Krpalenyj for malignant neoplasm of colonMark Wheatley Other Start: 01-01-9211Akzflljcu for malignant neoplasm of prostateMark Wheatley Other Depression screeningBensteven Wheatley Other Screening for malignant neoplasm of prostateMark Wheatley Other Plan of Treatment DateCare ActivityDetailAuthorStart: 85-16-0139Fdunfbnzp for malignant neoplasm of colonNOMS HealthcareStart: 08-15-2025 End: 20-10-3149Dlubxty encounter procedureNOMS SWS DERMStart: 06-07-2025 End: 74-23-8736Qmvlqrt encounter lbxxdpolj64/14/2025 9:45 AM EST Office Visit [facility] [address] [place] [address] Jen Reagan, DO [address] [place] [address] [facility] PULMStart: 89-44-3141Kehhldsut vaccinationNOMS HealthcareStart: 03-13-2025 End: 69-83-2241Sfctses encounter procedureNOMS FNR PULMComment on above:Arrived Start: 02-11-2025 End: 28-90-9404Cfahqzp encounter hdctzihum98/21/2025 9:15 AM EDT Office Visit [facility] [place] [address] [phone] Sterling Cardona DO [address] [place] [address] [facility] SANDUSKYStart: 01-16-2025 End: 22-90-9364Jtrdboa encounter procedureNOMS FNR PULMComment on above:Arrived Start: 12-25-2024 End: 82-32-5564Fsxgknr encounter tdntimiqx15/03/2025 11:00 AM EDT Office Visit [facility] [address] [place] [address] Rudolph Toro MD [address] [place] [address] ArrivedNOMS SWS DERMComment on above:ArrivedStart: 84-23-7411Hktmyug referralKindred Healthcare Work Phone: Start: 11-02-2024 End: 86-50-0089Tkubwzbgq function reportPulmonary Function Test Imaging Routine Chronic rhinitis Chronic cough Expected: 11/02/2024 (Approximate), Expires: 11/02/2025[facility] Work Phone: comment on above:Expected: 11/02/2024 (Approximate), Expires: 11/02/2025Start: 08-14-2024 End: 70-26-2371Jyvghdu encounter wiuplyoqz19/21/2025 10:10 AM EST Office Visit [facility] [address] [place] [address] Gena Escobar APRN-BRYSON [address] [place] [address] ArrivedNODC SWS DERMComment on above: ArrivedStart: 07-11-2024 End: 63-77-8085Znyvfyb encounter lhcafuwrg87/18/2024 9:25 AM EST Office Visit [facility] [address] [place] [address] Gena Escobar, QUALITY CONTROL INSPECTOR HEADING-MRP CONTROLLER [address] [place] [address] [facility] SWS DERMStart: 07-05-2024 End: 87-30-0127Xqyjvfn aminotransferase [Enzymatic activity/volume] in Serum or PlasmaALT Lab Routine Tinea manus High risk medication use Expected: 07/05/2024 (Approximate), Expires: 06/14/2025[facility] Work Phone: comment on above:Expected: 07/05/2024 (Approximate), Expires: 06/14/2025Start: 07-05-2024 End: 06-81-3224Onuhdfmae aminotransferase [Enzymatic activity/volume] in Serum or PlasmaAST Lab Routine Tinea manus High risk medication use Expected: 07/05/2024 (Approximate), Expires: 06/14/2025[facility] HealthcareComment on above: Expected: 07/05/2024 (Approximate), Expires: 06/14/2025Start: 06-14-2024 End: 35-77-9651Ksnfnhw encounter procedureNOMS [facility] DERMComment on above:Arrived Start: 05-31-2024 End: 51-62-5774Eycpsdf aminotransferase [Enzymatic activity/volume] in Serum or PlasmaALT Lab Routine Tinea manus Expected: 05/31/2024 (Approximate), Expires: 05/31/2025[facility] Work Phone: comment on above:Expected: 05/31/2024 (Approximate), Expires: 05/31/2025Start: 05-31-2024 End: 71-35-3312Ppslwdqlp aminotransferase [Enzymatic activity/volume] in Serum or PlasmaAST Lab Routine Tinea manus Expected: 05/31/2024 (Approximate), Expires: 05/31/2025[facility] HealthcareComment on above:Expected: 05/31/2024 (Approximate), Expires: 05/31/2025Start: 05-31-2024 End: 02-13-9963Mfazqzk encounter procedureNOMS SWS DERMComment on above:Arrived Start: 05-17-2024 End: 90-30-4340Bdivtnh encounter procedureNOMS SWS DERMComment on above:Arrived Start: 05-07-2024 End: 65-55-7796Oipymrt encounter nawbgdptf67/14/2024 10:25 AM EDT Office Visit [facility] [address] [place] [address] Gena Escobar, QUALITY CONTROL INSPECTOR HEADING-MRP CONTROLLER [address] [place] [address] ArrivedNOMS SWS DERMComment on above: ArrivedStart: 22-32-9606Zqveduvit vaccinationInfluenza Vaccine (#1)[facility] HealthcareStart: 80-98-9620CdiptzipuElyria Memorial Hospitaltart: 1960 Screening for malignant neoplasm of colonNOMS HealthcareDermatopathology exam Dermatopathology exam Pathology and Cytology Timed Rash and other nonspecific skin eruption ReleaseUpon Ordering for 1 Occurrences starting 05/07/2024[facility] Work Phone: comment on above:Release Upon Ordering for 1 Occurrences starting 05/07/2024ermatopathology examDermatopathology exam Pathology and Cytology Timed Neoplasm of unspecified behavior of bone, soft ti ssue, and skin Release Upon Ordering for 1 Occurrences starting 12/25/2024[facility] Work Phone: comment on above:Release Upon Ordering for 1 Occurrences starting 12/25/2024Patient referralKindred Healthcare Work Phone: Immunizations Immunization DateImmunizationNotesCare NzlitelkMtxhwsvv17-63-3190Utezquhbvrgl Conjugate Vaccine, 20 valentBensteven Wheatley DO Work Phone: [facility]04-01-2021COVID-19 Vaccine Pfizer - Documentation Purposes OnlyBeirwin Wheatley Other [facility]03-11-2021COVID-19 Vaccine Pfizer - Documentation Purposes OnlyBensteven Wheatley Other [facility] Payers DatePayer CategoryPayerPolicy [id number] [facility] Member Subscriber Plan / Payer (Effective 2021-Present) Name: Matteo Hardy MemberID: [id number] Relation to Subscriber: Spouse Name: EMY HARDY Date of : 1965 (Home) Address: [address] [place] [id number] Payer ID: Not on file Type: Not on file Address: [address] [id number] [id number] 2..1.032192.3.57[id number] 2..1.441172.3.57[id number] 2..1.922051.3.57[id number] 2..1.437678.3.57[id number] 2..1.137335.3.57[id number] 2..1.337455.3.57[id number] 2..1.806019.3.57[id number] 2.16.840.1.872242.3.57[id number] 2.16.840.1.386629.3.57[id number] 2.16.840.1.670572.3.57[id number] 2.0.1.108226.3.579.2.203655-17-7683LsgeRoosevelt General [id number] 2.0.1.161422.19Self-paySelf [id number] [id number] Social History DateTypeDetailFacilityUnknown if ever smokedLubbock [employer] Other Start: 05-26-2023 End: 31-06-4207Ure Assigned At BirthLubb[place] [employer] Other Start: 57-35-4266Mvzcdcd smoking status NHISSmoker (finding)[facility] Hospitaltart: 99-23-3060Hnr [facility]: 12-16-2022 End: 87-55-0564Uplpghs smoking status NHISSmokes tobacco dailyNOMS Healthcare History of tobacco useCigarette SmokerNOMS HealthcareHistory of tobacco useCigar SmokerNOMS HealthcareHistory of tobacco usePassive smokerNOMS HealthcareStart: 05-26-2023 End: 86-72-6912Byunzmszz beverage intakeCurrent drinker of alcohol (finding)[facility] HealthcareStart: 05-26-2023 End: 43-30-4307Qqslwmxgf beverage intakeNOMS HealthcareStart: 67-41-2207Oqwwqyh CommentdailyNOMS HealthcareStart: 83-64-0792Jviknp identityIdentifies as male gender (finding)[facility] HealthcareStart: 88-40-0670Geulcy orientationHeterosexual (finding)[facility] HospitalStart: 10-18-2024 End: 64-90-2583EjmDnis (finding)[facility] Goals DatePatient GoalDesired Activity/State Clinical Notes 12-08-2021 to 03-13-2025 Note Date & DurxKcblWbduwpec92-83-5663 History of Present illness Narrative* Jen Reagan, [...] into each nostril Daily, Disp: , Rfl: Ysecnbywiyi-Rdpqetidg-Jvtyct (Trelegy Ellipta) 100-62.5-25 MCG/ACT aerosol powder , [...] COPD. Jen Reagan DO documented in this encounterCarlos Ville [address]Zikalaspsg62-95-7711 History of Present illness Narrative* Jen Reagan, DO - 01/16/2025 9:00 AM EDT Images from the original note were not included. Matteo Hardy presents today for Evaluation in regards to chronic bronchitis / cough. He was referred by his primary care provider. He is accompanied by his at today's office visit. He had previously been seen by pellet mill operator many years ago for latent TB infection. [...] Administer 1 spray into each nostril Daily Aleqrizdrlx-Nsdhslxtj-Thgfmj (Trelegy Ellipta) 100-62.5-25 MCG/ACT aerosol powder Inhale [...] COPD. Jen Reagan DO documented in this encounterBarnes-Jewish Saint Peters HospitalUyacfrvyim13-11-5228 Evaluation note* Diagnosis Onset Date Resolution Status Admit Date Xerosis of skin acuteJune 2024 1:46pmIrritable bowel syndrome with constipationacuteJuly 2024 9:19am [facility] Work Phone: 1(433) 665-957306-03-2025 History of Present illness Narrative* Rudolph Toro [...] limited to risks of scarring, darker or vp communications pigmentary changes, recurrence, incomplete removal and infection. [...] Disease Next Visit: prn documented in this encounterBarnes-Jewish Saint Peters [id number] Telephone encounter Note* Telephone Encounter - Jourdan Terence - 12/18/2024 11:55 AM EDT Hi, this is Dub Negra Brewer, I am calling for my Matteo Brewer. date is 1959. He has an appointment at the [facility] on january 16. To see Dr ray was supposed to have got a PFT in [place]. But apparently the machine's been broken. So they were to have transferred everything over to [facility] so he could have it done and I just talked to [place], they have not received any of that. So I do not know if your office needs to do it or I need to call back to the clinicthat does the pulmonary function testing and dusk and have them Redo it, but like to see if we can get him set up in [facility] to have a pulmonary function test before he sees Dr. Ray appreciate if you could call me back at [phone], thank you. [facility] HospitalXwmcnokfus46-24-5103 Miscellaneous Notes* Telephone Encounter - Jourdan Pratt - 12/18/2024 11:55 AM EDT Hi, this is Dub Negra Brewer, I am calling for my Matteo Brewer. date is 1959. He has an appointment at the [facility] on january 16. To see Dr ray was supposed to have got a PFT in [place]. But apparently the machine's been broken. So they were to have transferred everything over to [facility] so he could have it done and I just talked to [place], they have not received any of that. So I do not know if your office needs to do it or I need to call back to the clinicthat does the pulmonary function testing and dusk and have them Redo it, but like to see if we can get him set up in [facility] to have a pulmonary function test before he sees Dr. Ray appreciate if you could call me back at [phone], thank you. documented in this encounterBarnes-Jewish Saint Peters HospitalTxfothypmi12-30-5705 Chief complaint+Reason for visit Narrative* Chief Complaint Admit Date Referral Order November 09, 2024 1:[address] Toro January 07, 2025 1 :46pm Left sided abdominal pain January 29, 2025 9:19am Reason for Visit Admit Date Xerosis of skin January 07, 2025 1:46 pm Irritable bowel syndrome with constipati on January 29, 2025 9:19am [facility] Work Phone: 1(738) 325-976304-11-2025 History of Present illness Narrative* Sterling Cardona, [...] meal of the day documented in this encounterBarnes-Jewish Saint Peters HospitalKdvtdhbobo07-61-6341 Chief complaint+Reason for visit Narrative* Chief Complaint Admit Date groin pain October 17, 2024 3:3 8pm Referral Order November 09, 2024 1:1 1pm Reason for Visit Admit Date Acute diverticulitis October 17, 2024 3: 38pm Allergic rhinitis, seasonal October 17, 2024 3:38pm Irritable bowel syndrome with constipati on October 17, 2024 3:38pm [facility] Work Phone: 1(459) 610-435203-26-2025 Evaluation note* Diagnosis Onset Date Resolution Status Admit Date Acute diverticulitis acuteMarch 2024 3:38pmAllergic rhinitis, seasonalacuteMar 2024 3:38pmIrritable bowel syndrome with constipationacuteUniversity [facility] 20[facility] 3:38pm [facility] Work Phone: 1(665) 513-660401-21-2025 History of Present illness Narrative* Gena Escobar, JARED-MRP CONTROLLER - 08/14/2024 10:10 AM EST Images from [...] Next Visit: 1 year documented in this encounterBarnes-Jewish Saint Peters HospitalSlzymshsfy66-36-0557 Evaluation note* Diagnosis Onset Date Resolution Status Admit Date Hypertension acuteJanuary 2024 10:05amAcute bronchitis due to other specified organisms noneactiveJanuary 2024 10:05amAcute exacerbation of chronic obstructive airways diseasenoneactiveJanuary 2024 10:05amAcute diverticulitisacute October 17, 2024 3:38pmAllergic rhinitis, seasonalacuteMarch 2024 3:38pm Irritable bowel syndrome with constipationacuteSt. [facility]ch 2024 3:38pm [facility] Work Phone: 1(785) 927-155111-21-2024 Telephone encounter Note* Telephone Encounter - CONSTANCE Pedraza - 06/14/2024 10:24 AM EST Patient seen today in office. Would like to add Cipro 750mg BID x 10 days since I am questioning ifDoxycycline only cured one of the bacterial growths. Please check interactions [facility] HospitalYhvlbioejq91-44-9244 Miscellaneous Notes* Telephone Encounter - CONSTANCE Pedraza - 06/14/2024 10:24 AM EST Patient seen today in office. Would like to add Cipro 750mg BID x 10 days since I am questioning ifDoxycycline only cured one of the bacterial growths. Please check interactions documented in this encounterBarnes-Jewish Saint Peters [id number] History of Present illness Narrative* CONSTANCE Pedraza [...] Next Visit: 1 month documented in this encounterBarnes-Jewish Saint Peters HospitalQciovrngaq93-11-3744 History of Present illness Narrative* CONSTANCE Pedraza [...] days 2. Actinic keratosis (4) Left [place], Mid Lower [place] Lip (2), Right [place] Erythematous scaly papules. Patient was counseled regarding [...] limited to risks of scarring, darker or vp communications pigmentary changes, recurrence, incomplete removal and infection. [...] tenderness Cryotherapy, skin lesion - Left [place], Mid Lower [place] Lip (2), Right [place] 3. Other atopic dermatitis Left Hand - Posterior Scaly erythematous plaques +/- dyspigmentation, lichenification, excoriations. Improved since last visit Continue Protopic as prescribed Next Visit: 2 weeks documented in this encounterBarnes-Jewish Saint Peters HospitalMatoctmdzh16-42-5599 History of Present illness Narrative* CONSTANCE Pedraza [...] Next Visit: 2 weeks documented in this [facility]10-14-2024 History of Present illness Narrative* [...] other nonspecific skin eruption Left Dorsal Hand Dooms patches and plaques Vikor tissue culture taken [...] Visit: 10 days S/R documented in this encounterBarnes-Jewish Saint Peters HospitalFbkzctrobc27-74-8519 History and physical note Author Axel Briggs [facility] November 28, 2023 10:09amNote Date/TimeMay 2023 10:10am[place] [address] Gastroenterology H&P Signed Patient: Matteo Hardy MR#: [id number] : 1960 Acct:[id number] Age/Sex: 63 / M Adm Date: 4 Loc: Room: Type: [facility] Attending Dr: Axel Briggs MD [...] signed by Axel Briggs MD> 11/28/23 1009 [facility] Work Phone: 1(680) 235-975605-06-2024 [facility]Hol[facility]02-[facility] Evaluation note* Encounter Date Diagnosis [...] NS for congestion, Tylenol forpain and fever. [facility] Other 02-01-2024 Evaluation note* Encounter Date Diagnosis Assessment Notes Treatment Notes Treatment Clinical Notes Aug, Acute non-recurrent maxillary si nusitis (ICD-10 - J01.00) Instructed to use Robitussin or Mucinex for cough, saline or Flonase NS for congestion, Tylenol forpain and fever. Aug,Irritable bowel syndrome with constipation (ICD-10 - K58.1)Increase dietary fiber and fluids [facility] Other 10-23-2023 Evaluation note* Encounter Date Diagnosis [...] 2 to 3 weeks after beginning it. [facility] Other 10-20-2023 Evaluation note* Encounter Date Diagnosis [...] index [BMI] 36.0-36.9, adult (ICD-10 - Z68.36) [facility] Other 09-27-2023 Evaluation note* Encounter Date Diagnosis Assessment Notes Treatment Notes Treatment Clinical Notes Mar, Mucopurulent chronic bronchitis (ICD-10 - J41.1) [facility] Other 09-07-2023 Evaluation note* Encounter Date Diagnosis Assessment Notes Treatment Notes Treatment Clinical Notes Mar, Dyspnea on exertion (ICD-10 - R0 6.09) Mar,Tobacco dependence (ICD-10 - F17.200) Mar,ost COVID-19 condition, unspecified (ICD-10 - U09.9) [facility] Other 07-05-2023 Evaluation note* Encounter Date Diagnosis Assessment Notes Treatment Notes Treatment Clinical Notes Jan, Wellness examination (ICD-10 - Z 00.00) [facility] Other 05-08-2023 Evaluation note* Encounter Date Diagnosis Assessment Notes Treatment Notes Treatment Clinical Notes November, GERD (gastroesophageal reflux di sease) (ICD-10 - K21.9) Diet instructions: Smaller portions, avoid eating and laying flat, avoid eating or drinking prior to bedtime. Weight loss. 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 Weight loss. 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 Treatment would be diet, hydration and azithromycin Sep,KI (acute kidney injury) (ICD-10 - N17.9)Hydrate, avoid NSAIDs Sep,ehydration (ICD-10 - E86.0)Hydrate [facility] Other 03-06-2023 Evaluation note* Encounter Date Diagnosis Assessment Notes Treatment Notes Treatment Clinical Notes Sep, Diarrhea, unspecified type (ICD- 10 - R19.7) [facility] Other 03-03-2023 Evaluation note* Encounter Date Diagnosis Assessment Notes Treatment Notes Treatment Clinical Notes Sep, Diarrhea of presumed infectious origin (ICD-10 - R19.7) Diet instructions reviewed. _update on Tuesdaybdominal cramping (ICD-10 - R10.9)Continue Dicyclomine. ER for increased pain, N/V/D [facility] Other 02-13-2023 Evaluation note* Encounter Date Diagnosis [...] to respiratory infections, vascular disease and cancers. [facility] Other 11-03-2022 Evaluation note* Encounter Date Diagnosis Assessment Notes Treatment Notes Treatment Clinical Notes May, Bloating (ICD-10 - R14.0) [facility] Other 10-31-2022 Evaluation note* Encounter Date Diagnosis Assessment Notes Treatment Notes Treatment Clinical Notes Apr, Enteritis (ICD-10 - K52.9) Apr,bdominal pain (ICD-10 - R10.9) [facility] Other 09-27-2022 Evaluation note* Encounter Date Diagnosis Assessment Notes Treatment Notes Treatment Clinical Notes Mar, Bloating (ICD-10 - R14.0) Mar,GERD (gastroesophageal reflux disease) (ICD-10 - K21.9)Increase Nexium to 40mg twice daily Mar,yspepsia (ICD-10 - K30) Mar,onstipation (ICD-10 - K59.00)Start Miralax powder daily. Titration dosing discussed with patient. Mar,hange in stool caliber (ICD-10 - R19.4) Mar,Left sided abdominal pain (ICD-10 - R10.9)Continue Dicyclomine prn [facility] Other 07-20-2022 Evaluation note* Encounter Date Diagnosis Assessment Notes Treatment Notes Treatment Clinical Notes Jan, Left sided abdominal pain (ICD-1 0 - R10.9) Jan,lternating constipation and diarrhea (ICD-10 - R19.8) [facility] Other 05-17-2022 History general Narrative - Reported* Type Description Date Medical History HYPERLIPIDEMIA Medical HistorySTOMACH PROBLEMS SINCE APPENDIX BURSTSurgical Historyappendectomy 1998Surgical Historybenign polpy removed from tongue and vocal cords12/08/2021 [facility] Other 05-17-2022 History general Narrative - Reported* Type Description Date Medical History HYPERLIPIDEMIA Medical HistorySTOMACH PROBLEMS SINCE APPENDIX BURSTSurgical Historyappendectomy 1998Surgical Historybenign polpy removed from tongue and vocal cords12/08/2021 Hospitalization HistorySEE SURGICAL [facility] Other 05-17-2022 History general Narrative - Reported* Type Description Date Medical History HYPERLIPIDEMIA Medical HistorySTOMACH PROBLEMS SINCE APPENDIX BURSTMedical History diverticulitisSurgical Meikuszrwvzjrmqfgqz2566Gxagjoau Historybenign polpy removed from tongue and vocal cords12/08/2021Hospitalization HistorySEE SURGICAL [facility] Other 05-17-2022 History general Narrative - Reported* Type Description Date Medical History HYPERLIPIDEMIA Medical HistorySTOMACH PROBLEMS SINCE APPENDIX BURSTMedical History diverticulitisSurgical Yuzumnmndnmihzlshzh2235Umoowmxu Historybenign polpy removed from tongue and vocal cords2Surgical Historycyst removed from back of tongueHospitalization HistorySEE SURGICAL HX [facility] [employer] Other Evaluation noteNo InformationNortUpper Allegheny Health System [facility] Other Evaluation noteNo assessment information available [facility] Work Phone: Evaluation note* Diagnosis Rash and [...] specific antigen)acuteOctober 2024 10:33amWellness examinationacuteOctober 2024 10:33am [facility] Work Phone: Hospital Discharge instructions Additional Instructions [...] years. -Follow up with PCP. -Office number [phone].[facility] Work Phone: Hospital Discharge instructionsAmbulatory Orders* Referral to Pulmonology Location: None Selected [facility] Work Phone: Reason for referral (narrative)No reason for referral information availableFirelands Regional Med Center Work Phone: Reason for visit Narrative* Consultation (Routine) - ClosedSpecialtyDiagnoses / ProceduresReferred By ContactReferred To Contact Pulmonary Disease / Pulmonology Diagnoses Unspecified chronic bronchitis (HCC) Chronic cough Procedures [place] UNLISTED EVALUATION AND MANAGEMENT SERVICE [facility] [address] [place] [address] Jen Reagan, DO [address] [place] [address] Phone: tel: fax: Referral IDStatusReasonStart DateExpiration DateVisits RequestedVisits [id number] [facility] Summary Purpose Family History Relationship Condition [...] section and content) DATE CREATED AUTHOR 02/12/2022 [facility] Petroleum Supply Specialist DATE CREATED AUTHOR AUTHOR'S ORGANIZ ATION 10/01/2022 [facility] DATE CREATED AUTHOR AUTHOR'S ORGANIZ ATION 12/04/2023 [facility] DATE CREATED AUTHOR AUTHOR'S ORGANIZ ATION 01/17/2025 [facility] EPIC REASON FOR VISIT (unrecogniz [...] DateEnd Date Mark Wheatley MD [address] [facility] [place] [phone] PCP - GeneralInternal Medicine11/29/22am MemberRelationshipSpecialtyStart Date End Date Mark Wheatley MD [address] [facility] [place] [address] PCP - GeneralInternal Medicine11/29/22am MemberRelationshipSpecialtyStart Date End Date Mark Wheatley MD [address] [facility] [place] [address] PCP - GeneralInternal Medicine11/29/22am MemberRelationshipSpecialtyStart Date End Date Mark Wheatley MD [address] [facility] [place] [address] PCP - GeneralInternal Medicine11/29/22am MemberRelationshipSpecialtyStart Date End Date Mark Wheatley MD [address] [facility] [place] [phone] PCP - GeneralInternal Medicine11/29/22Team MemberRelationshipSpecialtyStart Date End Date Mrak Wheatley MD [address] [facility] [place] [address] PCP - GeneralInternal Medicine11/29/22Team MemberRelationshipSpecialtyStart Date End Date Mark Wheatley MD [address] [facility] [place] [address] PCP - GeneralInternal Medicine11/29/22Team MemberRelationshipSpecialtyStart Date End Date Mark Wheatley MD [address] [facility] [place] [address] PCP - GeneralInternal Medicine11/29/22Team MemberRelationshipSpecialtyStart Date End Date Mark Wheatley MD [address] [facility] [place] [address] PCP - GeneralInternal Medicine11/29/22Team MemberRelationshipSpecialtyStart Date End Date Mark Wheatley MD [address] [facility] [place] [address] PCP - GeneralInternal Medicine11/29/22 Team Status: Inactive Member Role Status Dates Mark Wheatley DO Primary Care Provide r, Attending Provider Active Start: August 09, 2024 End: August 09, 2024 Team Status: Inactive Member Role Status Dates Mark Wheatley DO Primary Care Provide r, Attending Provider Active Start: October 17, 2024 End: October 17, 2024Team MemberRelationshipSpecialtyStart DateEnd Date Mark Wheatley MD [address] [facility] [place] [phone] PCP - GeneralInternal Medicine11/29/22Team MemberRelationshipSpecialtyStart Date End [...] DateEnd Date Mark Wheatley DO [address] [place] [address] PCP - GeneralInternal Medicine11/15/24Team MemberRelationshipSpecialtyStart Date End Date Mark Wheatley DO [address] [place] [address] PCP - GeneralInternal Medicine11/15/24Team MemberRelationshipSpecialtyStart Date End Date Mark Wheatley DO [address] [place] [address] PCP - GeneralInternal Medicine11/15/24Team MemberRelationshipSpecialtyStart Date End Date Mark Wheatley DO [address] [place] [address] PCP - GeneralInternal Medicine11/15/24Team MemberRelationshipSpecialtyStart Date End Date Mark Wheatley DO [address] [place] [phone] PCP - GeneralInternal Medicine11/15/24 Team Status: Inactive [...] BE BASED ON THE PRIMARY CLINICAL RECORDS. [facility] [employer] provides no warranty or guarantee of the accuracy or completeness of information in this document.
--- NOTE | 2025-05-17 10:06 | PC.NURSE ---
Nursing Note Cardiac Stress Test Reviewed: Medication, allergies and patient history reviewed. Stress Test: [ x] Patient tolerated stress test well. [ ] Patient unable to tolerate walking on treadmill. Switched to Lexiscan stress test. [ x] No chest pain noted per patient [ ] Chest pain that resolved prior to leaving stress lab. [ ] No dyspnea noted. [ x] Dyspnea that resolved prior to leaving stress lab. [x ] Patient left stress lab asymptomatic and hemodynamically stable. [ ] Patient taken to the Emergency Room due to non-resolving symptoms following stress test. [ x] Patient achieved target heart rate. [ ] Patient unable to achieve target heart rate. [ ] Aminophylline administered as reversal agent to Lexiscan (Regadenoson). [ ] Nitro administered. Nursing Comments: patient complained of hip pain, and shortness of breath through out the test. prior to leaving the stress lab his shortness of breath did resolve
--- NOTE | 2025-05-17 18:41 | PM.STRESS ---
Stress Test Stress Test Allergies Allergy/AdvReac Type Severity Reaction Status Date / Time ciprofloxacin (From Cipro) AdvReac Intermediate Unknown Verified 06/27/24 09:50 moxifloxacin (From Avelox) AdvReac Intermediate Unknown Verified 06/27/24 09:50 Requesting physician: Mark Quick Procedure: Treadmill cardiolyte stress test General Information: Reason for Stress Test: [chest pain, dyspnea] Cardiac History and Risk Factors: [HTN] Resting 12 - Lead Electrocardiogram: Sinus rhythm Septal infarct age indeterminate Abnormal ECG Stress Test: Protocol: [Phoenix protocol; resting HR 80 bpm, increasing to 131 bpm, 85% of PMHR%, the patient exercised for 6 minutes and 17 seconds reaching stage 3 of the Phoenix Protocol. The test was terminated due to achievement of target HR and dyspnea] Exercise Capacity: [Average] Blood Pressure Response: [Resting BP 126/74 and peak BP 168/88] Rhythm: [SInus, PACs, PVCs, bigeminy] ST - Response: [No significant ST T wave changes] Patient Response: [No chest pain] Interpretation: 1. No ischemic EKG changes on treadmill exercise stress test. 2. Appropriate HR and BP response to exercise. 3. Correia Treadmill Score: +6.2. Estimated 1-Year Mortality: 0.3-0.9 %. Risk Category: Low Risk. Angiography: Usually not indicated. 4. Nuclear images are to be read, interpreted, and reported seperately.
== END 2025-05-17 08:41 | disposition home or self-care (01) ==
LOC: CARD 08:42
PROVIDERS: PCP Internal Medicine; Visit Provider Internal Medicine
DX: E78.00 Pure hypercholesterolemia, unspecified (principal); I10 Essential (primary) hypertension; F17.211 Nicotine dependence, cigarettes, in remission; R07.9 Chest pain, unspecified
CPT/HCPCS: 93017

== ENCOUNTER 2025-06-18 15:26 | Outpatient (OUT) | payer BC, SELFPAY ==
--- OUTSIDE RECORDS SUMMARY | 2020-10-23 04:30 | XMS_ITS | Continuity of Care Document ---
Author Organization [facility] Address [address] [place] [address] Phone Care Team Providers Care Preschool Assistant Principal Name Role Phone Baldemar Bryant Unavailable Unavailable Procedures Procedure Date Pfizer COVID Vaccine Admin Dose 2 COVID-19 Pfizer Pfizer COVID Vaccine Admin Dose 1 COVID-19 Pfizer Advance Directives Directive Yes / No Effective Date File Name No Information Encounters Encounter Description Practice Location Reason(s) For Visit Diagnoses Date Provider Providers Copied on Encounter [facility], [address] [place], [place], [id number], [place] tel:[phone] COVID ECHD No Information Caroi DO Mcdermott. [address] [place], [place], [id number], [place]. tel:[phone] [facility], [address] [place] [address], [id number], tel:[phone] COVID ECHD No Information Visci DO Baldemar. [address], [place], [id number], [place]. tel:[phone] Family History Family Member Type Diagnosis Age At Onset No Information Immunizations Vaccine Date Status Comments Pfizer COVID administered Source: New Imm unization Record Pfizer COVID administered Source: New Imm unization Record Payers Payer name Insurance type Covered green party ID Authoriza tion(s) [place] [id number] [place] [id number] [place] [id number] Social History Type Description Quantity Date Captured Comments Alcohol Use Details Unknown Caffeine Use Details Unknown Tobacco Use Status No Information Smoking Status No Information Sex Male Sexual Orientation Straight or heterosexual Gender Identity Male Chief Complaint And Reason For Visit No Information Reason For Referral Reason For Referral No Information History Of Present Illness Encounter Date Complaint History Of Prese nt Illness No Information Functional Status Date Functional Assessmen t No Information Instructions Date Instruction Additional Infor mation No Information Assessments Type Assessment Date No Information Patient Care Teams Name Effective Dates (start - stop) Status Members No Information
--- OUTSIDE RECORDS SUMMARY | 2025-06-18 15:31 | XMS_ITS | Clinical Summary ---
Author Organization [facility] Address [address] [place] [address] Care Team Providers Care Clerical Specialist Name Role Phone Mark Quick DO Primary Care Provider [phone] Allergies Active AllergyReactionsCriticalityNoted IlpmDypnwxxvHszxjlyxroHivmJiu63/01/2024 PfhvzvqfwyfbnEbbgv68/21/2024 Severe body aches VzyukjkcxrbsFwihryd81/22/2024 Reports itching on palms and soles after 1 dose, no rash CxbjsmzuzzpmBiogkjd17/01/3532SwdgtcgxcqyWxovEzlsyf65/02/2023MontelukastUnknown 12/25/2024 Medications MedicationSigDispense QuantityRefillsLast FilledStart DateEnd DateStatus [...] flared, hold when clear) 60 g 1105Active Pcwqkonnpwz-Hwkfdgdsz-Fggqmz (Trelegy Ellipta) 100-62.5-25 MCG/ACT aerosol powder Indications:Chronic obstructive pulmonary disease, unspecified COPD type (HCC) Inhale 1 puff Daily 60 each 5Active Ethrbrw-Bqqzenrgnls-Wuidhssxyi (Breztri Aerosphere) 160-9-4.8 MCG/ACT aerosol Indications:Chronic obstructive pulmonary disease, unspecified COPD type (HCC) Inhale 2 puffs in the morning and 2 puffs before bedtime. 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 EHR Cmte Gas bloat nahfqdeh61GERD (gastroesophageal reflux disease) HypertensionHypoxia Irritable bowel syndrome with dzjtzbqxmgeq60Multifocal unrljftig65Nicotine qyfglipam40Screening PSA (prostate specific antigen)Wellness nbbkncotbgf37/16/2025 01/07/2025hronic oeznvujyms57Hearing loss Immunizations ImmunizationAdministration DatesNext DuePneumococcal Conjugate PCV Family History Medical HistoryRelationNameCommentsCancerFatherDiabetesMaternal Grandfather CancerMaternal GrandmotherCancerMotherDiabetesPaternal GrandfatherRelationName StatusCommentsFatherDeceasedMaternal GrandfatherMaternal GrandmotherMotherAlive Paternal Grandfather Social History Tobacco UseTypesPacks/DayYears UsedDateSmoking Tobacco: Every DayCigarettes CigarsPassive Smoke Exposure: Current Tobacco Cessation:Ready to Q uit: No; Counseling Given: Yes Alcohol UseStandard Drinks/WeekCommentsYes3 (1 standard drink = 0.6 oz pure alcohol)dailySex and Gender InformationValueDate RecordedSex Assigned at Male04/06/2024 11:27 PM EDTLegal GqaQiwe7510/06/2022 7:22 PM EDTGender Identity Male04/06/2024 11:27 PM EDTSexual FbqfvuzyimkFzyxtnum36/13/2024 11:27 PM EDT Last Filed Vital Signs Vital SignReadingTime TakenCommentsBlood Vzkenjoc756/7608 8:45 AM EDT Ytjdk198903/13/2025 8:45 AM EDTTemperature--Respiratory Rate--Oxygen Lpkxlvdyve79% 03/13/2025 8:45 AM EDTInhaled Oxygen Concentration--Mzrnlw516 kg (276 lb) 03/13/2025 8:45 AM AHEVarwyq595.4 cm (6' 1 )11/02/2024 9:15 AM EDTBody Mass Index36.41011/02/2024 9:15 AM EDT Plan of Treatment DateTypeDepartmentCare Team (Latest Contact Info)Ppbfcyyyjbf23/22/2026 8:35 AM ESTOffice Visit [facility] [address] [place] [address] Sulma Escobar, MAIL MACHINE OPERATOR-THEATER USHER [address] [place] [address] 10/25/2025 9:45 AM EDTOffice Visit [facility] [address] [place] [address] Jen Reagan, DO [address] [place] [address] Insurance Care Teams Team MemberRelationshipSpecialtyStart DateEnd Date Mark Quick, [address] [place] [address] [facility] - [facility] Centernal [facility]11/15/24
--- OUTSIDE RECORDS SUMMARY | 2025-06-18 15:31 | XMS_ITS | Clinical Summary ---
Author Organization Online Dealer tem Address [facility] [place]-[id number] [address] [place] [address] Care Team Providers Care Wash Worker Name Role Phone Mark Quick DO Primary Care Provider [phone] Allergies No known active allergies Medications MedicationSigDispense [...] tablet ctive Active Problems ProblemNoted DateDiagnosed DateAllergic xrijbjca95/03/2021hronic sinusitis 10/23/2020Hearing loss10/23/2020 Social History Tobacco UseTypesPacks/DayYears [...] more drinks on one occasion?Not asked10/23/2020HQ-2AnswerDate RecordedTotal Dbnjq087hildcareAnswerDate RecordedChildcareUnknown 10/22/2020mploymentAnswerDate SduabfvbWzbblphukyCuodlkj57/31/2021urpose - Life AnswerDate RecordedPurpose and direction in kmojHpcjikz55/31/2021ex and Gender InformationValueDate RecordedSex Assigned at BirthNot on fileLegal SexMale 02/27/2015 11:39 AM EDTGender IdentityNot on fileSexual OrientationNot on file Last Filed Vital Signs Vital SignReadingTime TakenCommentsBlood Rvdvxlyk665/8804 10:39 AM EDT Pulse--Temperature--Respiratory Rate--Oxygen Saturation--Inhaled Oxygen Concentration--Sblkqq041.6 kg (277 lb)10/23/2020 10:39 AM UWYFydwyh942.4 cm (6' 1 )10/23/2020 10:39 AM EDTBody Mass Index36.55010/23/2020 10:39 AM EDT Plan of Treatment Health MaintenanceDue DateLast DoneCommentsDepression Rilqgttqf97/02/1973Tobacco Ygykrzxcn37/02/1973Adult BMI Dnapglvaz49/02/1979DTaP,Tdap and Td Vaccines (1 - Tdap)1980Zoster (Shingles) Vaccine (1 of 2)2011Influenza Vaccine 03/25/2025RSV ( or age 60+ yrs) (1 - 1-dose 75+ series)2036 [employer] Not on file Insurance * Guarantor: Matteo HardynAccojosseline TypeRelation to PatientDate of PhoneBilling AddressPersonal/UnwzruDkpn1960 [id number] [address] Care Teams Team MemberRelationshipSpecialtyStart DateEnd Date Mark Quick DO [address] [place] [address] PCP - GeneralInternal Medicine11/11/20
--- OUTSIDE RECORDS SUMMARY | 2025-06-18 15:31 | XMS_ITS | Clinical Summary ---
Author Organization [facility] Address [address] [facility] [place] [address] Phone Care Team Providers Care Ocean Export Account Manager Name Role Phone Unavailable Primary Care Provider Unavailabl e Social History Tobacco UseTypesPacks/DayYears UsedDateSmoking Tobacco: Never AssessedSex and Gender InformationValueDate RecordedSex Assigned at BirthNot on fileLegal Sex Male06/18/2022 11:37 AM ESTGender IdentityNot on fileSexual OrientationNot on file Plan of Treatment Not on file
--- OUTSIDE RECORDS SUMMARY | 2025-06-18 15:40 | XMS_ITS | CCD ---
Author Organization [facility] Care Team Providers Care Key Account Director Name Role Phone Axel Briggs Unavailable Terra Connor Unavailable Mark Wheatley Unavailable DR MARK WHEATLEY Primary Care Unavailable MCMILLAN ., DR RENETTA Agee Attending Unavailable MCMILLAN ., DR RENETTA Agee Admitting Unavailable MCMILLAN ., DR RENETTA Agee Consulting Unavailable KATDANA CUENCA Consulting Unavailable SISTER, SU Consulting Unavailable [facility], DR DIXON Attending Unavailable ABDELRAHMAN, DR FLORES Primary Care Unavailable HEFLIN, DR TERRA Landers Consulting Unavailable MISC, DR DIXON Admitting Unavailable AXEL BRIGGS Consulting Unavailable ABDELRAHMAN, DR FLORES Primary Care Unavailable DULCE, DR ESQUIVEL Attending Unavailable DULCE, DR ESQUIVEL Admitting Unavailable DULCE, DR ESQUIVEL Consulting Unavailable Mulugeta Bella Unavailable DO Mark Wheatley Primary Care Provider MD Axel Briggs Attending Provider [phone] Axel Briggs Attending Unavailable Axel Briggs Admitting Unavailable Mark Wheatley Primary Care Unavailable Mark Wheatley MD Primary Care Provider Mark Wheatley MD Primary Care Provider Mark Wheatley DO Primary Care Provider SULMA ESCOBAR Attending Unavailable STERLING CARDONA Attending Unavailable SULMA ESCOBAR Attending Unavailable SULMA ESCOBAR Attending Unavailable CHELSY TORO Attending Unavailable JEN REAGAN Attending Unavailable SULMA ESCOBAR Attending Unavailable SULMA ESCOBAR Attending Unavailable Mark Wheatley DO Primary Care Provider Mark Wheatley DO Attending Provider Provider, Outside Attending Provider Unavailable Mulugeta Bella MD Attending Provider [phone] Aditya Baird APRN Attending Provider Abdelrahman GLEASON Mark Primary Care Provider Abdelrahman GLEASON Mark Attending Provider [phone] Abdelrahman Mrak Primary Care Provider Abdelrahman GLEASON Mark Attending Provider [phone] Allergies Allergy ClassificationReported Allergen(s)Allergy TypeDate of OnsetReaction(s) Facility (20 sources)moxifloxacinDrug Odxbeno58-78-3714UpaqdjtUijlnafbmSelect [facility] [place] (20 sources)CephalexinDrug Amxffen21-38-4616YzmyGmlrwvogbThe [facility] (4 sources)Allergies ReconciledPropensity to adverse reactionsMer[facility], [facility] [employer] Other (4 sources)patient allergy list reviewed by nurse or physiciaPropensity to adverse givdhfozz95-47-3174Bekvntn:[employer] Other (9 sources)Singulair *ANTIASTHMATIC AND BRONCHODILATOR AGENTSPropensity to adverse qqtnamgnd97-90-8441TfbjmqjAqgpn [place] [employer] Other (6 sources)Singulair *ANTIASTHMATIC AND BAllergy to evrihdigs57-95-3803XfkopquGenesis HospitalComment on above:Free Text Allergy: Singulair *ANTIASTHMATIC AND BRONCHODILATOR AGENTS; Onset Date: 07/02/2021 (20 sources)PenicillinsPropensity to adverse pzzevjojf42-59-9272ByotODRE Healthcare (15 sources)CiprofloxacinDrug Olvzono70-10-7728SwkacHPNC Healthcare (15 sources)levoFLOXacinDrug Xnupazz12-61-9227VpnfpcrCZDI Healthcare (7 sources)montelukastDrug Ulbtjil86-93-5589TzgreqxGKEL Healthcare Medications Current Medications MedicationDrug Class(es)DatesSig (Normalized)Sig (Original)[id number] 200 actuat albuterol 0.09 mg/actuat metered dose inhaler (20 sources)beta2-Adrenergic AgonistStart: 23-51-3787orxf 1 puff(s) by inhalation every four hours as neededStart: 07-05-2024 End: 55-07-1589urqh 1.25 mg by inhalation every four hours as neededAlbuterol Sulfate 2.5 mg /3 mL (0.083 %) solution for nebulization Discontinued 1.25 MG INHALATION Every 4 hours as needed July 05, 2024 12:00am January 07, 2025 12:58pmStart: 55-25-6885daan 90 ug by inhalation twice dailyAlbuterol Active [...] 1000 mg oral tablet (20 sources)Vitamin CStart: 39-92-9096exjo 1 g by mouth once dailytake 1 tablet by mouth once dailyAscorbic Acid (Vitamin C) 500 MG capsule Take 1 tablet by mouth 1 (one) time each day Activetake 1 tablet by mouth every twenty-four hours Vitamin C 100 MG 1 tablet Orally Once a day ActiveVitamin C Activeaspirin 81 mg oral tablet (20 sources)Platelet Aggregation Inhibitor, Nonsteroidal Anti-inflammatory Drug Start: 69-38-1691soqe 1 capsule by mouth once dailytake 1 tablet by mouth once dailyaspirin 81 MG EC tablet Take 1 tablet by mouth Daily ActiveAspirin 81 Activeazithromycin 250 mg oral tablet (1 source)Macrolide AntimicrobialStart: 53-28-8255feorddpa 20 mg oral tablet (20 sources)gamma-Aminobutyric Acid-ergic AgonistStart: 02-22-2022 End: 60-44-2540ckev 1 tablet by mouth twice daily as neededbaclofen (Lioresal) 20 MG tablet TAKE 1 TABLET BY MOUTH TWICE A DAY NEEDED FOR 30 DAYS 03/23/2022 Mlmijy373 actuat budesonide 0.16 mg/actuat / formoterol fumarate 0.0048 mg/actuat / glycopyrrolate 0.009 mg/actuat metered dose inhaler (2 sources)Corticosteroid, beta2-Adrenergic AgonistStart: hr cetirizine hydrochloride 5 mg / pseudoephedrine hydrochloride 120 mg extended release oral tablet (20 sources)alpha-Adrenergic Agonist, Histamine-1 Receptor AntagonistStart: 96-51-1019dzdf 1 tablet by mouth once daily as neededStart: 68-76-7242zkme 1 tablet by mouth once daily as neededCetirizine-Pseudoephedrine 5-120 mg tablet extended release 12 hr Active 1 TAB PO Daily January 16, 2024 12:00am FreeTextSi tablet as needed Orally Once a day; Note: Source Status: Taking; Refills: 5; Provider: Abdelrahman Flores EStart: 16-09-4340lcef 1 tablet by mouth every twenty-four hoursZyrTEC-D Allergy & Congestion 5-120 MG 1 tablet as needed Orally Once a day for 30 days Activecholecalciferol 0.025 mg oral tablet (9 sources)Vitamin DStart: 77-64-7957vzfn 1 tablet by mouth once dailyclobetasol propionate 0.5 mg/ml topical cream (12 sources)CorticosteroidStart: 11-23-2022 End: 06-36-6342pvetrsczxl (Temovate) 0.05 % cream APPLY THIN LAYER TO HANDS & NAILS DAILY TUE-TUE,NO WEEKENDS,UNTIL CLEAR REPEAT NEEDED FOR FLARES 11/23/2022 06/14/2024 Discontinued (Ineffective)esomeprazole 40 mg delayed release oral capsule (20 sources)Proton Pump InhibitorStart: 34-30-3446ouwu 1 capsule by mouth twice dailyStart: 90-77-5683Uwmjahwetxdl Magnesium 40 MG 1 capsule Orally twice daily on empty stomach followed in 30 minutes by food for 30 days November, Active Start: 10-19-2017 End: 00-55-1968dxif 1 capsule by mouth once dailyEsomeprazole Magnesium 40 mg capsule,delayed release(DR/EC) Discontinued 40 MG PO Daily July 05, 2024 12:00am August 23, 2024 7:07amEsomeprazole Magnesium 40 mg capsule,delayed release(DR/EC) (2 sources)Start: 92-02-3970gbbv 1 capsule by mouth twice dailyEsomeprazole Magnesium 40 mg capsule,delayed release(DR/EC) Active 0 .ROUTE .COMPLEX 180 August 23, 2024 8:07am TAKE 1 CAPSULE BY MOUTH TWICE A DAY ON AN EMPTY STOMACH FOLLOWED IN 30 MINUTES BY FOOD 90ezetimibe 10 mg oral tablet (2 sources)Dietary Cholesterol Absorption InhibitorStart: 16-47-0120veyd 1 tablet by mouth once dailyfluticasone propionate 0.05 mg/actuat metered dose nasal spray (20 sources)Corticosteroidtake 1 spray(s) nasal route once dailyfluticasone (Flonase) 50 MCG/ACT nasal spray Administer 1 spray into each nostril Daily Activetake 1 spray(s) nasal route in the morningfluticasone (Flonase) 50 MCG/ACT nasal spray Administer 1 spray into each nostril in the morning. Gkvjhq31 actuat fluticasone furoate 0.1 mg/actuat / umeclidinium 0.0625 mg/actuat / vilanterol 0.025 mg/actuat dry powder inhaler (4 sources)Anticholinergic, Corticosteroid, beta2-Adrenergic AgonistStart: 18-06-6401umdh 1 puff(s) by inhalation once yzmniTvtfbbraqka-Frqxkvnpa-Uhozki (Trelegy Ellipta) 100-62.5-25 MCG/ACT aerosol powder Indications: Chronic obstructive pulmonary disease, unspecified COPD type (HCC) Inhale 1 puff Daily 60 each 5 01/16/2025 Activegentamicin 0.001 mg/mg topical ointment (15 sources)Start: 73-63-1761xgjbaudcex (Garamycin) 0.1 % ointment Indications: Bacterial infection Apply to hands BID prn 15 g 11 08/28/2024 ActiveStart: 50-98-0411jbmdqpsuqn (Garamycin) 0.1 % ointment Indications: Bacterial infection Apply to left hand BID x 7 days. 15 g 07/26/2024 ActivehydroCHLOROthiazide 12.5 mg / telmisartan 40 mg oral tablet (19 sources)Thiazide Diuretic, Angiotensin 2 Receptor BlockerStart: 05-25-2025 take 1 tablet by mouth once dailyStart: 08-14-2024 End: 82-04-1660ejie 1 tablet by mouth once dailyTelmisartan-Hydrochlorothiazid 40-12.5 mg tablet Discontinued 1 TAB PO Daily 30 30 5 August 14, 2024 12:00am December 16, 2024 6:40amlactobacillus rhamnosus gg [id number] unt oral capsule (3 sources)Start: 68-46-9241xlzaqewphjzm 0.008 mg oral capsule (20 sources)Chloride Channel ActivatorStart: 02-06-2025 End: 48-70-8553ofki 1 capsule by mouth once dailyStart: 42-70-1345vnrk 1 capsule by mouth once dailyStart: 01-29-2025 End: 57-78-8301nxpw 1 capsule by mouth once dailyLubiprostone 8 mcg capsule Discontinued 8 MCG PO Daily January 28, 2025 11:00pm January 29, 2025 8:48amStart: 04-08-2024 End: 65-06-1197yqjh 1 capsule by mouth in the morninglubiprostone (Amitiza) 8 MCG capsule Take 8 mcg by mouth in the morning and 8 mcg before bedtime. 06/14/2024 Discontinued (Med list cleanup)Start: 02-17-2024 End: 47-01-6400eoyg 1 capsule by mouth twice dailyLubiprostone (Amitiza) 8 mcg capsule Discontinued 8 MCG PO Twice daily 60 30 5 February 16, 2024 11:00pm April 24, 2024 12:59pmStart: 02-17-2024 End: 86-33-4916rzde 1 capsule by mouth twice dailyLubiprostone (Amitiza) 8 mcg capsule Discontinued 8 MCG PO Twice daily 60 30 February 17, 2024 12:00am April 24, 2024 1:59pmomeprazole 40 mg delayed release oral capsule (20 sources)Proton Pump InhibitorStart: 04-26-2022 End: 08-62-5018hygt 1 capsule by mouth twice daily 30 minutes before mealtime omeprazole (PriLOSEC) [address] capsule TAKE 1 CAPSULE BY MOUTH 30 MINUTES BEFORE MEAL TWICE DAILY FOR 30 DAYS 05/20/2022 06/14/2024 Discontinued (Med list cleanup)Start: 06-02-2021 End: 62-87-6046bokj 1 capsule by mouth once dailyOmeprazole 40 mg Capsule,Delayed Release(Dr/Ec) Discontinued 40 MG PO Daily June 02, 2021 12:00am July 05, 2024 8:12ampaxlovid (300/100) 20 x 150 mg & 10 x 100mg tablet therapy pack (2 sources)Start: 68-97-4936hfby 3 tablets by mouth every twelve hoursPaxlovid (300/100) 20 x 150 MG & 10 x 100MG 3 tablets Orally Twice a day for 5 days Aug, Activephentermine hydrochloride 37.5 mg oral tablet (2 sources)Sympathomimetic Amine AnorecticStart: 34-75-6011dosl 1 tablet by mouth once daily 30 minutes after breakfastpolyethylene glycol 3350 20233 mg powder for oral solution (20 sources)Osmotic LaxativeStart: 56-09-5285Xijxe: 11-22-2023 End: 01-34-0015Vqabwtflkavm Glycol 3350 (Miralax) 17 gram/dose powder Discontinued 17 GM PO Twice daily November 23, 2023 11:00pm February 17, 2024 7:51am Take 17 grams in liquid three times a day for constipationStart: 08-25-2023 MiraLax 17 GM/SCOOP 1 scoop mixed with 8 ounces of fluid Orally Once a day for 30 days Aug,ctiveStart: 01-68-0554zcep 17 g by mouth twice daily Polyethylene Glycol 3350 17 GM/SCOOP 17gm Orally twice a day for 30 day(s) Jun, Not-TakingStart: 07-27-8338htzl 17 g by mouth once dailyPolyethylene Glycol 3350 17 GM/SCOOP 17gm Orally Once a day for 30 day(s) please dispense largest quantity Mar, ActivepredniSONE 20 mg oral tablet (11 sources)Start: 68-26-3214Nojqq: 08-09-2024 End: 17-91-7804Ycozplyrxl 20 mg tablet Discontinued 20 MG PO As Directed 18 0 August 09, 2024 12:00am January 07, 2025 12:57pm 1 tab tid w/ food x 3 days, then bid w/ food x 3 days, then qd w/ food x 3 daysStart: 07-05-2024 End: 09-66-2635lqsz 2 tablets by mouth once dailyPrednisone 10 mg tablet Discontinued 20 MG PO Daily July 05, 2024 12:00am August 09, 2024 1 0:58amRoflumilast (5 sources)Phosphodiesterase 4 InhibitorStart: 11-37-4137Aacajzjqpev (Zoryve) 0.15 % cream Indications: Other atopic dermatitis Apply 1 Application topically Daily as needed (apply to hands when flared, hold when clear) 60 g 11 01/07/2025 Activetamsulosin hydrochloride 0.4 mg oral capsule (20 sources)alpha-Adrenergic BlockerStart: 91-06-6521ibwi 1 capsule by mouth once daily at bedtimeStart: 12-12-2023 End: 70-44-6283Jgkfistltt 0.4 mg capsule Discontinued 0 .ROUTE .COMPLEX 90 3 March 07, 2024 12:32pm April 12, 2025 9:22am TAKE 1 CAPSULE BY MOUTH 30 MINUTES AFTER EVENING MEAL EVERY NIGHTStart: 10-12-2022 End: 80-24-1739okwq 1 capsule by mouth once dailyTamsulosin 0.4 mg capsule Discontinued 0.4 MG PO Daily November 23, 2023 11:00pm December 12, 2023 12:05pmStart: 87-66-5263oabgpxflju (Flomax) 0.4 MG 24 hr capsule 10/12/2022 ActiveTamsulosin HCl Not-TakingTamsulosin HCl Activetazarotene 1 mg/ml topical cream (12 sources)RetinoidStart: 11-24-2022 End: 07-12-8005iqxhttgkxk (Tazorac) 0.1 % cream APPLY TO HANDS DAILY 11/24/2022 06/14/2024 Discontinued (Med list cleanup)terbinafine 250 mg oral tablet (20 sources)Allylamine AntifungalStart: 05-17-2024 End: 72-34-1555ofce 1 tablet by mouth once dailyterbinafine (LamISIL) [...] MedicationDrug Class(es)DatesSig (Normalized)Sig (Original)Albuterol 90 mcg/actuation Aerosol (5 sources)Start: 06-02-2021 End: 36-75-1955brej 90 ug by inhalation twice dailyAlbuterol 90 mcg/actuation Aerosol Discontinued 90 MCG INHALATION Twice daily June 02, 2021 12:00am January 16, 2024 12:24pmStart: 06-02-2021 End: 96-49-7455ssmq 90 ug by inhalation twice dailyAlbuterol 90 mcg/actuation Aerosol Discontinued 90 MCG INHALATION Twice daily June 02, 2021 1:00am January 16, 2024 1:24pmamoxicillin 875 mg / clavulanate 125 mg oral tablet (10 sources)Penicillin-class AntibacterialStart: 08-09-2024 End: 63-46-1529mioj 1 tablet by mouth every twelve hoursAmoxicillin-Pot Clavulanate 875-125 mg tablet Discontinued 1 TAB PO Every 12 hours 14 7 0 October 17, 2024 3:28pm January 07, 2025 12:58pmbenzonatate 200 mg oral capsule (17 sources)Non-narcotic AntitussiveStart: 07-06-2024 End: 19-65-2229nppj 1 capsule by mouth three times dailyBenzonatate 200 mg capsule Discontinued 200 MG PO Three times daily 30 10 0 July 06, 2024 12:00am January 07, 2025 12:58pmStart: 86-69-6689hbee 1 capsule by mouth every eight hoursBenzonatate 200 MG 1 capsule Orally Three times a day for 10 Aug, Not-Takingcefuroxime 500 mg oral tablet (12 sources)Cephalosporin AntibacterialStart: 03-72-4095srtp 1 tablet by mouth every twelve hoursCefuroxime Axetil 500 MG 1 tablet Orally every 12 hrs for 5 day(s) Aug, Not-Takingciprofloxacin 500 mg oral tablet (10 sources)Quinolone AntimicrobialStart: 04-24-2024 End: 18-92-4359rkej 1 tablet by mouth twice dailyCiprofloxacin Hcl (Cipro) 500 mg tablet Discontinued 500 MG PO Twice daily 20 10 April 23, 2024 11:00pm July 05, 2024 8:16amStart: 01-16-2024 End: 66-95-6132sskh 1 tablet by mouth twice dailyCiprofloxacin Hcl 500 mg tablet Discontinued 500 MG PO Twice daily 20 10 January 15, 2024 11:00pm February 17, 2024 7:50amdicyclomine hydrochloride 20 mg oral tablet (20 sources)AnticholinergicStart: 99-20-3094hcnb 1 tablet by mouth at bedtime Dicyclomine HCl 20 MG 1 tablet Orally AC and HS for 10 days Sep, Not-TakingStart: 07-92-4303grpl 1 tablet by mouth three times daily as needed Dicyclomine HCl 20 MG 1 tablet Orally Three times a day as needed for 30 day(s) May, ActivediphenhydrAMINE citrate 38 mg / ibuprofen 200 mg oral tablet (6 sources)Histamine-1 Receptor Antagonist, Nonsteroidal Anti-inflammatory Drug Start: 06-02-2021 End: 77-60-6196ncmi 1 capsule by mouth once daily at bedtime as needed for sleep Ibuprofen-Diphenhydramine Cit (Advil Pm) 200-38 mg Tablet Discontinued 1 CAP PO Daily at bedtime asneeded for sleep June 02, 2021 12:00am January 16, 2024 12:24pmdoxycycline hyclate 100 mg oral capsule (20 sources)Tetracycline-class DrugStart: 08-31-2024 End: 58-21-3674vlzo 1 capsule by mouth twice dailyDoxycycline Hyclate 100 mg capsule Discontinued 100 MG PO Twice daily 14 7 0 August 31, 2024 5:27pm January 07, 2025 12:57pmStart: 06-26-2024 End: 39-85-7874vrse 1 capsule by mouth twice dailyDoxycycline Hyclate 100 mg capsule Discontinued 100 MG PO Twice daily 14 7 0 June 26, 2024 12:00am July 05, 2024 8:15amStart: 05-09-2024 End: 64-15-2288lyra 1 capsule by mouth twice dailydoxycycline (Monodox) 100 MG capsule Indications: Bacterial infection Take 1 capsule, by mouth bid,x 10 days 20 capsule 05/09/2024 12/25/2024 Discontinued (Therapy completed)Start: 81-68-5048iwec 1 capsule by mouth twice dailyDoxycycline Hyclate 100 MG 1 capsule Orally twice daily for 7 days Aug, Exicdq44 actuat fluticasone propionate 0.25 mg/actuat / salmeterol 0.05 mg/actuat dry powder inhaler (20 sources)Corticosteroid, beta2-Adrenergic AgonistStart: 09-19-2024 End: 57-53-6034uczb 1 puff(s) by inhalation twice dailyFluticasone Propion- Salmeterol 250-50 mcg/dose blister with device Discontinued 0 .ROUTE .COMPLEX 18 0 3 September 19, 2024 1:12pm January 16, 2025 11:31am INHALE 1 PUFF INTO THE LUNGS TWICE A DAYStart: 12-12-2023 End: 03-76-9029nzql 1 puff(s) by inhalation twice dailyFluticasone Propion- Salmeterol (Wixela Inhub) 250-50 mcg/dose blister with device Discontinued 0 .RO KLETSEL DEHE WINTUN .COMPLEX 180 1 December 12, 2023 12:24pm September 19, 2024 1:12pm INHALE 1 PUFF INTO THE LUNGS TWICE A DAY FOR 30 DAYSStart: 12-12-2023 End: 53-51-5022kmij 1 puff(s) by inhalation twice dailyFluticasone Propion- Salmeterol (Wixela Inhub) 250-50 mcg/dose blister with device Discontinued 0 .RO KLETSEL DEHE WINTUN .COMPLEX 180 December 12, 2023 1:24pm September 19, 2024 2:12pm INHALE 1 PUFF INTO THE LUNGS TWICE A DAY FOR 30 DAYSStart: 12-12-2023 End: 95-57-1367Obvyyjlhnwy Propion-Salmeterol (Advair Diskus) 250-50 mcg/dose blister with device Discontinued 1 INH INHALATION Twice daily December 11, 2023 11:00pm January 16, 2024 12:24pmStart: 12-12-2023 End: 19-48-9389Zntkorgjuqq Propion-Salmeterol (Advair Diskus) 250-50 mcg/dose blister with device Discontinued 1 INH INHALATION Twice daily December 12, 2023 12:00am January 16, 2024 1:24pmStart: 09-16-2023 End: 05-84-0144Zhhuzxskvim Propion-Salmeterol (Wixela Inhub) 250-50 mcg/dose blister with device Discontinued 1 INH INHALATION Every 12 hours 60 30 September 16, 2023 12:00am December 12, 2023 12:27pmStart: 04-25-2023 End: 07-32-2066Lcqbin Diskus 250-50 MCG/ACT aerosol powder 04/25/2023 01/16/2025 DiscontinuedStart: 91-33-0297nfie 1 puff(s) by inhalation twice dailyAdvair Diskus 250-50 MCG/ACT aerosol powder INHALE 1 PUFF INTO THE LUNGS TWICE A DAY FOR 30 DAYS 04/25/2023 ActiveStart: 02-05-0530zwlf 1 puff(s) by inhalation twice dailyFluticasone-Salmeterol 250-50 MCG/ACT 1 puff Inhalation Twice a day for 30 days Mar, YtwaykRnhbwnskzht-Ocrqdxeez-Hfqblqqn (3 sources)Start: 01-16-2025 End: 32-09-8595Ngodkpedqdy-Umeclidin-Vilanter (Trelegy Ellipta) 200-62.5-25 mcg blister with device Discontinued 1INH INHALATION Daily 60 30 0 January 15, 2025 11:00pm May 07, 2025 9:54amStart: 01-16-2025 End: 90-61-2273Wttudsoahbh-Umeclidin-Vilanter (Trelegy Ellipta) 200-62.5-25 mcg blister with device Discontinued 1INH INHALATION Daily 60 January 16, 2025 12:00am May 07, 2025 10:54amStart: 01-16-2025 Tcugktgbfqf-Mjnnaiunr-Hnipzquj (Trelegy Ellipta) 200-62.5-25 mcg blister with device Active 1 INH INHALATION Daily 60 January 16, 2025 12:00am Complies with drug therapyhydroCHLOROthiazide 12.5 mg / lisinopril 10 mg oral tablet (20 sources)Thiazide Diuretic, Angiotensin Converting Enzyme InhibitorStart: 08-07-2024 End: 18-78-2545dnwx 1 tablet by mouth once dailyLisinopril-Hydrochlorothiazide 20-25 mg tablet Discontinued 1 TAB PO Daily 90 90 3 August 07, 2024 12:00am August 14, 2024 10:16amStart: 07-06-2024 End: 46-90-7266zeeg 1 tablet by mouth once dailyLisinopril-Hydrochlorothiazide 10-12.5 mg tablet Discontinued 1 TAB PO Daily 90 90 2 August 07, 2024 12:43pm August 07, 2024 12:44pmlinaclotide 0.145 mg oral capsule (5 sources)Guanylate Cyclase-C AgonistStart: 01-30-2024 End: 30-07-9544alzf 1 capsule by mouth once dailyLinaclotide (Linzess) 145 mcg capsule Discontinued 145 MCG PO Daily 30 30 January 29, 2024 11:00pmJuly 2023 7:51amloperamide hydrochloride 2 mg oral capsule (6 sources)Opioid AgonistStart: 06-02-2021 End: 25-26-8206yphb 1 capsule by mouth once daily as neededLoperamide 2 mg Capsule Discontinued 2 MG PO Daily as needed for loose stool June 02, 2021 12:00am January 16, 2024 12:24pmmontelukast 10 mg oral tablet (6 sources)Leukotriene Receptor AntagonistStart: 06-02-2021 End: 67-73-0406hvaa 1 tablet by mouth once dailyMontelukast 10 mg tablet Discontinued 10 MG PO Daily June 02, 2021 12:00am November 24, 2023 11:27am plecanatide 3 mg oral tablet (6 sources)Start: 01-07-2025 End: 17-88-4062dcci 1 tablet by mouth once dailyPlecanatide (Trulance) 3 mg tablet Discontinued 3 MG PO Daily January 06, 2025 11:00pm January 29, 2025 8:31am Start: 01-16-2024 End: 60-35-0396ibeg 1 tablet by mouth once dailyPlecanatide (Trulance) 3 mg tablet Discontinued 3 MG PO Daily January 15, 2024 11:00pm January 30, 2024 10:43amPlecanatide (Trulance) 3 mg tablet (2 sources)Start: 01-16-2024 End: 23-27-5709fvmz 1 tablet by mouth once dailyPlecanatide (Trulance) 3 mg tablet Discontinued 3 MG PO Daily January 16, 2024 12:00am January 30, 2024 11:43amPolyethylene Glycol 3350 (Miralax) 17 gram/dose powder (3 sources)Start: 11-22-2023 End: 16-17-7984Vyxmhrrbwdyk Glycol 3350 (Miralax) 17 gram/dose powder Discontinued 17 GM PO Three times daily November 22, 2023 12:00am November 24, 2023 12:29pm Take 17 grams in liquid three times a day for constipation rosuvastatin calcium 20 mg oral tablet (20 sources)HMG-CoA Reductase InhibitorStart: 06-02-2021 End: 22-54-2614wdbc 1 tablet by mouth every other dayRosuvastatin 20 mg Tablet Discontinued 20 MG PO .every other day June 02, 2021 12:00am January 16, 2024 12:25pmtake 1 tablet by mouth in the eveningRosuvastatin Calcium 20 MG TAKE 1 TABLET BY MOUTH IN THE EVENING ActiveCrestor 20MG ActiveSod Picosulf-Mag Ox- Citric Ac (6 sources)Start: 11-22-2023 End: 54-87-1535ypdm 1 mL by mouth once dailySod Picosulf-Mag Ox-Citric Ac (Clenpiq) 10 mg-3.5 gram- 12 gram/175 mL solution Discontinued 175 MLPO Daily 1 November 21, 2023 11:00pm January 16, 2024 12:25pm please follow instructions providedby Dr. Briggs's office.Start: 11-22-2023 End: 15-16-9713uapz 1 mL by mouth once dailySod Picosulf-Mag Ox-Citric Ac (Clenpiq) 10 mg-3.5 gram- 12 gram/175 mL solution Discontinued 175 MLPO Daily 07 25November 22, 2023 12:00am January 16, 2024 1:25pm please follow instructions provided byDr. Briggs's office.Start: 25-62-8436dvjm 1 mL by mouth once dailySod Picosulf-Mag Ox-Citric Ac (Clenpiq) 10 mg-3.5 gram- 12 gram/175 mL solution Active 175 ML PO Daily 1 November 22, 2023 12:00am please follow instructions provided by Dr. Briggs's office.tacrolimus 0.001 mg/mg topical ointment (20 sources)Calcineurin Inhibitor ImmunosuppressantStart: 05-17-2024 End: 92-29-9894snnlwfdqmh (Protopic) 0.1 % ointment Indications: Encounter for removal of sutures Apply topically 2 (two) times a day 60 g 3 05/17/2024 01/10/2025 Discontinued (Therapy completed)ubidecarenone 200 mg oral capsule (15 sources)Start: 06-02-2021 End: 57-35-5386Latdxhfe Q10 (Co Q-10) 200 mg Capsule Discontinued 200 MG PO Daily June 02, 2021 12:00am January 16, 2024 12:44omBzX21 200 MG as directed Orally ActiveZinc (20 sources)Start: 06-02-2021 End: 26-66-5532hghu 1 tablet by mouth once dailyZinc 50 mg Tablet Discontinued 50 MG PO Daily June 02, 2021 12:00am November 24, 2023 11:28amStart: 06-02-2021 End: 72-38-6974iaco 1 tablet by mouth once dailyZinc 50 mg Tablet Discontinued 50 MG PO Daily June 02, 2021 1:00am November 24, 2023 12:28pmStart: 06-02-2021 End: 29-09-9721xjgk 50 mg by mouth once dailyZinc Discontinued 50 MG PO Daily June 02, 2021 1:00am November 24, 2023 12:28pmZinc Not-TakingZinc Active Problems Active Problems Problem ClassificationProblemDateDocumented DateEpisodic/ChronicAbdominal pain (20 sources)Stomach cramps; Translations: [Unspecified abdominal pain]Onset: 01-29-2014 Resolved: 53-48-1063NdzmynwwNpjvk and unspecified renal failure (2 sources)Acute kidney failure, unspecified; Translations: [ACUTE KIDNEY FAILURE UNSPECIFIED]Onset: 60-96-8795ZgtgdrgwGcvbv bronchitis (20 sources)Acute bronchitis due to other specified organisms; Translations: [Acute bronchitis]Onset: 17-47-9025IyccffwgBizajnu-related disorders (9 sources)Alcohol abuse; Translations: [Alcohol abuse, uncomplicated]Chronic Allergic reactions (4 sources)Atopic dermatitis; Translations: [Other atopic dermatitis]05-31-2024 ChronicChronic obstructive pulmonary disease and bronchiectasis (20 sources)Chronic obstructive pulmonary disease with acute lower respiratory infection; Translations: [Chronic obstructive pulmonary disease with (acute) lower respiratory infection]Onset: 08-04-2018 Resolved: 92-89-5613BztrtrtGyfxyhruf of lipid metabolism (20 sources)Familial hypercholesterolemia; Translations: [Familial hypercholesterolemia]Onset: 01-20-2913YychjpwEisbpdi on above:Problem List clean-up per request of Phys. EHR CmteDiverticulosis and diverticulitis (20 sources)Diverticulitis of colon; Translations: [Diverticulitis of intestine, part unspecified, without perforation or abscess without bleeding]Onset: 09-05-2018 Resolved: 176772-56-4262LusxyfaBcaxrmvqhe disorders (20 sources)Gastroesophageal reflux disease; Translations: [Gastro-esophageal reflux disease without esophagitis]Onset: 11-15-2014 Resolved: 95-96-5242IrycenwUwwebvqyj hypertension (12 sources)Hypertensive disorder; Translations: [Essential (primary) hypertension]Onset: 01-07-2025 Resolved: 081614-05-9042SxxaizdWqdttwl on above:Stress Test NM: LVEF 62%, no reversible defect, no TID - 04/2025Fluid and electrolyte disorders (2 sources)Dehydration; Translations: [DEHYDRATION]Onset: 65-56-7567Hjiwfyjk Genitourinary symptoms and ill-defined conditions (9 sources)Peterson hematuria; Translations: [Gross hematuria]EpisodicHyperplasia of prostate (20 sources)Lower urinary tract symptoms due to benign prostatic hypertrophy; Translations: [Benign prostatic hyperplasia with lower urinary tract symptoms] Onset: 16-87-6847QmxfpvhKlrwmrxqslvyd and screening for infectious disease (18 sources)Nonspecific tuberculin test reaction ; Translations: [Nonspecific reaction to tuberculin skin test without active tuberculosis]EpisodicIntestinal infection (2 sources)Campylobacter enteritis; Translations: [CAMPYLOBACTER ENTERITIS] Onset: 48-98-2016VsnpjlpeUqqtdgo (20 sources)Onychomycosis due to dermatophyte ; Translations: [Dermatophytosis of nail]Onset: 237638-30-3995HcmkfyxrPrmrproxi of unspecified nature or uncertain behavior (2 sources)Neoplastic disease; Translations: [Neoplasm of unspecified behavior of bone, soft tissue, and skin]85-08-3789ScwhojzdWqioacehyvwiro (9 sources)Osteoarthritis; Translations: [Polyosteoarthritis, unspecified]Onset: 76-31-9736JclrruhOtbmd aftercare (1 source)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; Translations: [RESIDENTIAL CURRENT USE OF ASPIRIN]Onset: 66-21-4682VyqxamfaBchsn aftercare (1 source)Other half-way (current) drug therapy; Translations: [OTH RESIDENTIAL CURRENT DRUG THERAPY]Onset: 15-18-9127RivkgwweXihwx aftercare (9 sources)Long-term current use of drug therapy; Translations: [Other half-way (current) drug therapy]EpisodicOther aftercare (2 sources)Removal of sutures done; Translations: [Encounter for removal of sutures]97-25-7575YzvhdchgTlhjm aftercare (2 sources)Taking high risk medication; Translations: [Other half-way (current) drug therapy]30-20-8306HhdnhrfkYklyd and unspecified benign neoplasm (9 sources)Polyp of colon; Translations: [Polyp of colon]EpisodicOther congenital anomalies (20 sources)Congenital anomaly of larynx; 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]Onset: 663259-37-4565UlcwbjbThtmi congenital anomalies (2 sources)Other congenital malformations of larynxChronicOther connective tissue disease (1 source)Suspected respiratory disease; Translations: [Other symptoms and signs involving the nervous system]12-30-2175MjoobjkdRuguu disorders of stomach and duodenum (20 sources)Indigestion; Translations: [Functional dyspepsia]37-70-2336Snmmfvwm Other disorders of stomach and duodenum (1 [...] [Irritable bowel syndrome with constipation]Onset: 01-07-2025 Resolved: 589774-67-5661CoksehdTfxbw gastrointestinal disorders (4 sources)Irritable bowel syndrome with constipation; Translations: [Irritable bowel syndrome]ChronicOther gastrointestinal disorders (4 sources)Irritable bowel syndrome; Translations: [Irritable bowel syndrome without diarrhea]90-36-2191ArdhwgrMphcc gastrointestinal disorders (17 sources)Swollen abdomen; Translations: [Abdominal [...] disorders (5 sources)Diarrhea, unspecified; Translations: [DIARRHEA UNSPECIFIED]Onset: 58-53-9757LixhdlxfXfpeg gastrointestinal disorders (3 sources)Personal history of other diseases of the digestive systemEpisodic Other gastrointestinal disorders (10 sources)Disorder of gastrointestinal tract; Translations: [Other specified diseases of the digestive system]Onset: 01-07-2025 Resolved: 713010-09-3210FkghobjvYlfwf lower respiratory disease (20 sources)Chronic cough; Translations: [Chronic cough]Onset: 01-07-2025 Resolved: 059882-48-0259YvmjvhozNdjcp lower respiratory disease (1 source)Other forms of dyspneaEpisodicOther lower respiratory disease (10 sources)Hypoxia; Translations: [Hypoxemia]Onset: 01-07-2025 Resolved: 950412-35-1736JourzfliKrbwl non-epithelial cancer of skin (9 sources)Squamous cell carcinoma of upper extremity; Translations: [Squamous cell carcinoma of skin of unspecified upper limb, including shoulder]Episodic Other nutritional; endocrine; and metabolic disorders (20 sources)Obese class I; Translations: [Body mass index (BMI) 32.0-32.9, adult]Onset: 74-08-9323FdpujeaBqxyr nutritional; endocrine; and metabolic disorders (9 sources)Morbid obesity; Translations: [Morbid (severe) obesity due to excess calories]Onset: 92-88-1461ZnrxtieGifnc nutritional; endocrine; and metabolic disorders (9 sources)Simple obesity ; Translations: [Other obesity due to excess calories] Onset: 41-57-9502ShowcpwLnqqi nutritional; endocrine; and metabolic disorders (13 sources)Obesity; Translations: [Obesity, unspecified]38-49-5340ObwciktIrije nutritional; endocrine; and metabolic disorders (9 sources)Body mass index 30+ - obesity; Translations: [Body mass index (BMI) 36.0-36.9, adult]ChronicOther nutritional; endocrine; and metabolic disorders (1 source)Morbid (severe) obesity due to excess caloriesChronicOther nutritional; endocrine; and metabolic disorders (1 source)Body mass index (BMI) 36.0-36.9, adultChronicOther screening for suspected conditions (not mental disorders or infectious disease) (20 sources)Encounter for screening for diseases of the blood and blood-forming organs and certain disorders involving the immune mechanism; Translations: [Patient encounter status]Onset: 09-22-2015 Resolved: 632736-50-2082AymdspczZprjvpw on above:PSA: 0.21 - 04/2025Other skin disorders (2 sources)Eruption; Translations: [Rash and other nonspecific skin eruption] 66-34-5981SwuamnvoBtqlo skin disorders (4 sources)Actinic keratosis; Translations: [Actinic keratosis]05-31-2024 EpisodicOther skin disorders (2 sources)Skin tag; Translations: [Other hypertrophic disorders of the skin] 42-69-3792NxigsmtlRojzx skin disorders (4 sources)Asteatosis cutis; Translations: [Xerosis cutis]35-17-4380Xxejfevh Other upper respiratory disease (9 sources)Allergic rhinitis; Translations: [Allergic rhinitis, unspecified] Onset: 39-34-0426HqrfzbmIohsg upper respiratory disease (9 sources)Vasomotor rhinitis; Translations: [Vasomotor rhinitis]ChronicOther upper respiratory disease (20 sources)Chronic rhinitis; Translations: [Chronic rhinitis]Onset: 12-16-2022 17-20-6518QhasjzjXwxch upper respiratory disease (10 sources)Seasonal allergic rhinitis; Translations: [Other seasonal allergic rhinitis]Onset: 01-07-2025 Resolved: 555501-27-8774KuypdzwTqchg upper respiratory disease (2 sources)Other seasonal allergic rhinitis; Translations: [Allergic rhinitis, cause unspecified]37-94-4721VxybxemCiddv upper respiratory infections (20 sources)Sinusitis; Translations: [Chronic sinusitis, unspecified]Onset: 630530-29-7205PdhlgayUckjr upper respiratory infections (20 sources)Acute maxillary sinusitis; Translations: [Acute maxillary sinusitis, unspecified]Onset: 06-00-5693MtjhjbmqGuphwo media and related conditions (20 sources)Acute suppurative otitis media without spontaneous rupture of ear drum; Translations: [Acute suppurative otitis media without spontaneous rupture of ear drum, left ear]EpisodicPneumonia (except that caused by tuberculosis or sexually transmitted disease) (19 sources)Inactive tuberculosis; 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]Onset: 01-07-2025 Resolved: 726119-52-8906SivczwbeAdhvsbjg codes; unclassified (2 sources)Hypersomnia; Translations: [Hypersomnia, unspecified]03-13-2025 ChronicResidual codes; unclassified (1 source)Obstructive sleep apnea syndrome; Translations: [Obstructive sleep apnea (adult) (pediatric)]99-28-3245RvvgjosTuihzer on above:AHI - 33, SpO2 - 78% Residual codes; unclassified (9 sources)Immunization refused ; Translations: [Immunization not carried out because of patient refusal]EpisodicResidual codes; unclassified (20 sources)Tobacco user; Translations: [Tobacco use]Onset: EpisodicResidual codes; unclassified (11 sources)Family history of cancer of colon; Translations: [Family history of malignant neoplasm of digestiveorgans]Onset: 01-07-2025 Resolved: 062022-50-0436VkipepaxGpmplnt on above:Problem List clean-up per request of Phys. EHR CmteResidual codes; unclassified (1 source)Other specified personal risk factors, not elsewhere classified; Translations: [At high risk for cardiovascular disease]31-86-3663Phkoubyp Spondylosis; intervertebral disc disorders; other back problems (9 sources)Cervical spondylosis without myelopathy; Translations: [Spondylosis without myelopathy or radiculopathy, cervical region]ChronicSprains and strains (18 sources)Neck sprain; Translations: [Strain of muscle, fascia and tendon at neck level, initial encounter]EpisodicSubstance-related disorders (20 sources)Nicotine dependence; Translations: [Nicotine dependence, cigarettes, uncomplicated]Onset: 11-15-2014 Resolved: 53-84-8689UgqgkqeTmifhickwhmx (1 source)CONTACT W/AND (SUSP) EXPOS COVID-19; Translations: [CONTACT W/AND (SUSP) EXPOS COVID-19]Onset: 59-82-5934Xxidxezehtzp (9 sources)Exposure to acute respiratory syndrome coronavirus 2; Translations: [Contact with and (suspected) exposure to COVID-19]Viral infection (10 sources)Disease caused by 2019-nCoV; Translations: [COVID-19] Past or Other Problems Problem ClassificationProblemDateDocumented DateEpisodic/ChronicAllergic reactions (18 sources)Allergic contact dermatitis due to plants, except food; Translations: [Allergic contact dermatitis due to plants, except food]Onset: 78-45-5258TwctdfegXmimmrzniw disorders (2 sources)Esophageal disorders; Translations: [Gastro-esophageal reflux disease with esophagitis, without bleeding]Inflammation; infection of eye (except that caused by tuberculosis or sexually transmitteddisease) (9 sources)Acute atopic conjunctivitis of left eye; Translations: [Acute atopic conjunctivitis, left eye] Resolved: 98-19-4102TvsqilusDcygfxudb (9 sources)Influenza; Translations: [Influenza with other respiratory manifestations]Onset: 90-57-7823XwxmlhcsZtiibbk and fatigue (9 sources)Malaise and fatigue; Translations: [Other malaise and fatigue]Onset: 97-47-8383OfbyietiAynoms and vomiting (9 sources)Nausea; Translations: [Nausea]Onset: 72-48-2051JlxccxtdArvjjyrrdhyyc gastroenteritis (5 sources)Noninfective gastroenteritis and colitis, unspecified; Translations: [NONINFECTIVE GE AND COLITIS UNS]Onset: 61-25-6045CfvtjbguPtxfn connective tissue disease (9 sources)Synovitis and tenosynovitis; Translations: [Synovitis and tenosynovitis, unspecified]Onset: 90-90-9960CpdfoieyYchht connective tissue disease (9 sources)Pes anserinus tendinitis and bursitis; Translations: [Pes anserinus tendinitis or bursitis]Onset: 51-11-0937GqtsnbuzDtlrq ear and sense organ disorders (20 sources)Hearing loss; Translations: [Unspecified hearing loss, unspecified ear]Onset: 10-23-2020 Resolved: 483074-71-2169KdptczyDlcxe gastrointestinal disorders (3 sources)Abdominal distension (gaseous); Translations: [ABDOMINAL DISTENSION GASEOUS]Onset: 16-19-8405XmiajxutMlnrq gastrointestinal disorders (9 sources)Flatulence, eructation and gas pain; Translations: [Abdominal distension (gaseous)]Onset: 22-79-7804RupbazddLojfx gastrointestinal disorders (9 sources)Digestive symptom; Translations: [Other symptoms involving digestive system]Onset: 66-33-0822ZqkwjhhkEmgfi non-traumatic joint disorders (9 sources)Arthralgia of the lower leg; Translations: [Pain in unspecified knee] Onset: 31-22-4070MjdjdazmIklhm skin disorders (9 sources)Localized swelling, mass and lump, unspecified; Translations: [Localized mass]Onset: 51-99-6520YfjsxivcUebg and subcutaneous tissue infections (9 sources)Cellulitis of right axilla; Translations: [Cellulitis of right axilla]Onset: 42-59-5752MzmceaipWgmmljqqhzo injury; contusion (9 sources)Contusion of lower leg; Translations: [Contusion of unspecified lower leg, initial encounter]Onset: 57-54-0490KwslyvblJftivrqfkpqe (9 sources)Long-term current use of drug therapy; Translations: [Long-term (current) use of other medications]Onset: 25-41-4617Haaracbqxecq (1 source)Post COVID-19 condition, 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Unclassified (2 sources)Latent tuberculosisUnclassified (2 sources)Removal of sutures jkuy15-54-4622 Results Test NameValueInterpretationReference RangeFacilityHemoglobin [Mass/volume] in Bloodon 03-83-2230Qdgcbyshtc (Bld) [Mass/Vol]16.1 g/dL14.0-18.0[facility]No Panel Informationon 09-83-6893CCBIMercy Hospital WashingtonType of biopsy: tangential Informed consent: discussed and [...] taken yes Amount of lidocaine used: 0.5 [facility] HospitalEstimated glomerular filtration rate (GFR) non- Americanon 26-01-0867QYS/1.73 sq M.predicted among non-blacks MDRD (S/P/Bld) [Vol rate/Area]Estimated glomerular filtration rate (GFR) non- AmericanLow>=60 mL/min/1.73m 2FThe [facility]vue HospitalLaboratory - Chemistry and Chemistry - challengeon 93-29-6197Btjhqyxvlt [Mass/Vol]1.34 mg/dLHigh0.70-1.30[facility] HospitalGFR/1.73 sq M.predicted MDRD (S/P/Bld) [Vol rate/Area]mL/min/{1.73_m2} >=60 mL/min/1.[address]m [address] [place], [place] [address]No Panel Informationon 61-45-4841MQKJLee's Summit Hospital Panel Informationon [id number] of biopsy: punch Informed consent: discussed and [...] of sutures used: 2 Photo taken [facility] CenterCB AUTO DIFFon [id number] #0.1 103/ulNormal0.0-0.1Henry County HospitalComment on above: Performed By: #### CBC #### [facility] [address] [address] [address] Kyle Reisphils/100 WBC (Bld)0.8 %Normal0.2-2.0[facility] Comment on above:Performed By: #### CBC #### [facility] [address] [address] [address] Kyle Saravia #0.2 103/ulNormal0.0-0.7The [facility] WestComment on above: Performed By: #### CBC #### [facility] [address] [place] [address] Dr. Kyle Holtosinophils/100 WBC (Bld)3.7 %Normal0.9-7.0[facility] Comment on above:Performed By: #### CBC #### [facility] [address] [place] [address] Dr. Kyle Holtrythrocyte distribution width (RBC) [Ratio]14.5 %Qtqfqm47.0-15.0 The [facility] WestComment on above:Performed By: #### CBC #### [facility] [address] [place] [address] Dr. Kyle AdamsonHematocrit (Bld) [Volume fraction]44.3 %Uduxte97.0-54.0The [facility] WestComment on above:Performed By: #### CBC #### [facility] [address] [place] [address] Dr. Kyle AdamsonHemoglobin (Bld) [Mass/Vol]14.9 g/oBZxnzsm96.0-18.0The [facility] WestComment on above:Performed By: #### CBC #### [facility] [address] [place] [address] Dr. Kyle Guerrero #0.06 10e3/ulCritically high0.00-0.03The [facility] Comment on above:Performed By: #### CBC #### [facility] [address] [place] [address] Dr. Kyle Guerrero %0.9 %Critically high0.0-0.5The [facility] WestComment on above:Performed By: #### CBC #### [facility] [address] [place] [address] Dr. Kyle Coleman #2.3 103/ulNormal1.2-3.8The [facility] WestComment on above:Performed By: #### CBC #### [facility] [address] [place] [address] Dr. Kyle Cabreramphocytes/100 WBC (Bld)35.9 %Zrppge17.5-60.0The [facility] WestComment on above:Performed By: #### CBC #### [facility] [address] [place] [address] Dr. Kyle Sousa DIFF REQNONormalThe [facility] WestComment on above: Performed By: #### CBC #### [facility] [address] [place] [address] Dr. Kyle Christian (RBC) [Entitic mass]29.7 mpThsgji75.9-34.0The [facility] WestComment on above:Performed By: #### CBC #### [facility] [address] [place] [address] Dr. Kyle Christian (RBC) [Mass/Vol]33.6 g/fQVeitng51.9-35.2The [facility] WestComment on above:Performed By: #### CBC #### [facility] [address] [place] [address] Dr. Kyle Christian (RBC) [Entitic vol]88.2 sITejlao17.0-94.0The [facility] WestComment on above:Performed By: #### CBC #### [facility] [address] [place] [address] Dr. Kyle Maddox #1.3 103/ulCritically high0.3-0.8The [facility] Comment on above:Performed By: #### CBC #### [facility] [address] [place] [address] Dr. Kyle Hicksocytes/100 WBC (Bld)19.3 %Critically high1.7-12.0The [facility] WestComment on above:Performed By: #### CBC #### [facility] [address] [place] [address] Dr. Kyle Amaral #2.6 103/ulNormal1.4-6.5The [facility] WestComment on above:Performed By: #### CBC #### [facility] [address] [address] [address] Kyle Swansonutrophils/100 WBC (Bld)39.4 %Critically low43.0-75.0The [facility] WestComment on above:Performed By: #### CBC #### [facility] [address] [place] [address] Dr. Kyle AdamsonPlatelet mean volume (Bld) [Entitic vol]9.5 fLNormal9.5-13.5The [facility] WestComment on above:Performed By: #### CBC #### [facility] [address] [place] [address] Dr. Kyle AdamsonPLT287 103/igYlfdwm775-221Nhi [facility] WestComment on above: Performed By: #### CBC #### [facility] [address] [place] [address] Dr. Kyle AdamsonRBC5.02 106/ulNormal4.70-6.10The [facility] WestComment on above:Performed By: #### CBC #### [facility] [address] [place] [address] Dr. Kyle AdamsonWBC6.5 103/ulNormal4.0-11.0The [facility] WestComment on above: Performed By: #### CBC #### [facility] [address] [place] [address] Dr. Kyle AdamsonPROF CHEM 8 (BAS METB)on 17-18-7191Khycc gap [Moles/Vol]12.4 mmol/LNormalThe [facility] WestComment on above:Performed By: #### BMP #### [facility] [address] [place] [address] Dr. Kyle AdamsonCalcium [Mass/Vol]8.6 mg/dLNormal8.5-10.1The [facility] Comment on above:Performed By: #### BMP #### [facility] [address] [place] [address] Dr. Kyle AdamsonChloride [Moles/Vol]105 mmol/KAlswlv80-199Nmq [facility] Comment on above:Performed By: #### BMP #### [facility] [address] [address] [address] Kyle AdamsonCO2 [Moles/Vol]24.8 mmol/IHgblhr69.0-32.0The [facility] Comment on above:Performed By: #### BMP #### [facility] [address] [address] [address] Kyle AdamsonCreatinine [Mass/Vol]1.30 mg/dLNormal0.70-1.30The [facility] WestComment on above:Performed By: #### BMP #### [facility] [address] [address] [address] Wright ChangEGFR-AF ST LUCIAN>60Normal>=60The [facility] WestComment on above:Performed By: #### BMP #### [facility] [address] [address] [address] Kyle HoltGFR-NON AF ARGVZRMM14 mL/min/1.22n8Pkwbaktutk low>=60The [facility] WestComment on above:Performed By: #### BMP #### [facility] [address] [address] [address] Kyle AdamsonGlucose [Mass/Vol]109 mg/dLCritically vrqx90-160Voq [facility] WestComment on above:Performed By: #### BMP #### [facility] [address] [address] [address] Kyle AdamsonPotassium [Moles/Vol]4.2 mmol/LNormal3.5-5.1The [facility] Comment on above:Performed By: #### BMP #### [facility] [address] [address] [address] Kyle AdamsonSodium [Moles/Vol]138 mmol/IDpkzmh622-268Aza [facility] Comment on above:Performed By: #### BMP #### [facility] [address] [address] [address] Kyle AdamsonUrea nitrogen [Mass/Vol]23.0 mg/dLCritically high7.0-18.0The [facility] WestComment on above:Performed By: #### BMP #### [facility] [address] [address] [address] Kyle AdamsonUrea nitrogen/Creatinine [Mass ratio]17.7 mg/mgNormalThe [facility] WestComment on above:Performed By: #### BMP #### [facility] [address] [place] [address] Dr. Kyle LedezmaC AUTO DIFFon [id number] #0.1 103/ulNormal0.0-0.1The [facility] WestComment on above:Performed By: #### CBC #### [facility] [address] [place] [address] Dr. Kyle AdamsonBasophils/100 WBC (Bld)1.0 %Normal0.2-2.0[facility] Comment on above:Performed By: #### CBC #### [facility] [address] [place] [address] Dr. Kyle HoltO #0.3 103/ulNormal0.0-0.7The [facility] WestComment on above: Performed By: #### CBC #### [facility] [address] [place] [address] Dr. Kyle Holtosinophils/100 WBC (Bld)3.7 %Normal0.9-7.0[facility] Comment on above:Performed By: #### CBC #### [facility] [address] [place] [address] Dr. Kyle Holtrythrocyte distribution width (RBC) [Ratio]14.6 %Waihun79.0-15.0 The [facility] WestComment on above:Performed By: #### CBC #### [facility] [address] [place] [address] Dr. Kyle AdamsonHematocrit (Bld) [Volume fraction]51.9 %Fiagco07.0-54.0The [facility] WestComment on above:Performed By: #### CBC #### [facility] [address] [place] [address] Dr. Kyle AdamsonHemoglobin (Bld) [Mass/Vol]17.9 g/yERkmwnj13.0-18.0[facility] HospitalComment on above:Performed By: #### CBC #### [facility] [address] [place] [address] Dr. Kyle Guerrero #0.03 10e3/ulNormal0.00-0.03The [facility] WestComment on above:Performed By: #### CBC #### [facility] [address] [place] [address] Dr. Kyle Guerrero %0.4 %Normal0.0-0.5The [facility] WestComment on above: Performed By: #### CBC #### [facility] [address] [place] [address] Dr. Kyle Coleman #2.4 103/ulNormal1.2-3.8The [facility] WestComment on above:Performed By: #### CBC #### [facility] [address] [place] [address] Dr. Kyle Paulsonhocytes/100 WBC (Bld)33.1 %Trdpkr35.5-60.0The [facility] WestComment on above:Performed By: #### CBC #### [facility] [address] [place] [address] Dr. Kyle JacobsenUAL DIFF REQNONormalThe [facility] WestComment on above: Performed By: #### CBC #### [facility] [address] [place] [address] Dr. Kyle Christian (RBC) [Entitic mass]30.1 pyPdronw07.9-34.0The [facility] WestComment on above:Performed By: #### CBC #### [facility] [address] [place] [address] Dr. Kyle Christian (RBC) [Mass/Vol]34.5 g/cONebdum96.9-35.2The [facility] WestComment on above:Performed By: #### CBC #### [facility] [address] [place] [address] Dr. Kyle Christian (RBC) [Entitic vol]87.4 iRZpftja33.0-94.0The [facility] WestComment on above:Performed By: #### CBC #### [facility] [address] [place] [address] Dr. Kyle Maddox #1.6 103/ulCritically high0.3-0.8The [facility] Comment on above:Performed By: #### CBC #### [facility] [address] [place] [address] Dr. Kyle Hicksocytes/100 WBC (Bld)22.1 %Critically high1.7-12.0The [facility] WestComment on above:Performed By: #### CBC #### [facility] [address] [place] [address] Dr. Kyle Amaral #2.8 103/ulNormal1.4-6.5The [facility] WestComment on above:Performed By: #### CBC #### [facility] [address] [place] [address] Dr. Kyle Swansonutrophils/100 WBC (Bld)39.7 %Critically low43.0-75.0The [facility] WestComment on above:Performed By: #### CBC #### [facility] [address] [place] [address] Dr. Kyle Ingram mean volume (Bld) [Entitic vol]9.3 fLCritically low 9.5-13.5The [facility] WestComment on above:Performed By: #### CBC #### [facility] [address] [place] [address] Dr. Kyle CamachoT282 103/qlTtejyo384-407Cfa [facility] WestComment on above: Performed By: #### CBC #### [facility] [address] [place] [address] Dr. Kyle AdamsonRBC5.94 106/ulNormal4.70-6.10The [facility] WestComment on above:Performed By: #### CBC #### [facility] [address] [place] [address] Dr. Kyle RalphBC7.1 103/ulNormal4.0-11.0The [facility] WestComment on above: Performed By: #### CBC #### [facility] [address] [place] [address] Dr. Kyle AdamsonCovid-19 PCR (CVDTB)on 65-07-2466CESL-CoV-2 (COVID-19) RNA RADHA+probe Ql (Unsp spec)Not detectedNormalNOT DETECTEDThe [facility] Comment on above:Result Comment: When diagnostic testing [...] for this test is supported by the [place] of Health and Human Service's declaration that [...] may no longer be used).Performed By: #### CVDTBH #### [facility] [address] [place] [address] Dr. Kyle AdamsonGI PANEL (PCR)on 44-85-3199Ldvkfrfxdc F 40/41Not detectedNormal NOT DETECTEDThe [facility] WestComment on above:Performed By: #### GIPANEL #### [facility] [address] [place] [address] Dr. Kyle AdamsonAstrovirusNot detectedNormalNOT DETECTEDHenry [facility] Comment on above:Performed By: #### GIPANEL #### [facility] [address] [place] [address] Dr. Kyle Bishop. Diff toxin A/BNot detectedNormalNOT DETECTEDThe [facility] WestComment on above:Performed By: #### GIPANEL #### [facility] [address] [address] [address] Kyle VillalobacterDetectedCritically abnormalNOT DETECTEDThe [facility] WestComment on above:Performed By: #### GIPANEL #### [facility] [address] [address] [address] Kyle KhanyptosporidiumNot detectedNormalNOT DETECTEDThe [facility] WestComment on above:Performed By: #### GIPANEL #### [facility] [address] [address] [address] Kyle Farahos. CayetanensisNot detectedNormalNOT DETECTEDThe [facility] WestComment on above:Performed By: #### GIPANEL #### [facility] [address] [address] [address] Kyle Holt. Coli C257Ozz ApplicableNormalNot ApplicableThe [facility] WestComstraith hospital for special surgery on above:Performed By: #### SANGITAANEL #### [facility] [address] [address] [address] Kyle Holt. histolyticaNot detectedNormalNOT DETECTEDThe [facility] on above:Performed By: #### GIPANEL #### [facility] [address] [address] [address] Kyle HoltAECNot detectedNormalNOT DETECTEDThe [facility] WestComment on above:Performed By: #### SANGITAANEL #### [facility] [address] [address] [address] Kyle HoltIECNot detectedNormalNOT DETECTEDThe [facility] WestComment on above:Performed By: #### GIPANEL #### [facility] [address] [address] [address] Kyle HoltPECNot detectedNormalNOT DETECTEDThe [facility]Comstra[facility] for [facility] on above:Performed By: #### GIPANEL #### [facility] [address] [address] [address] Kyle HoltTECNot detectedNormalNOT DETECTEDThe [facility] WestComment on above:Performed By: #### GIPANEL #### [facility] [address] [place] [address] Dr. Kyle Fiore LambliaNot detectedNormalNOT DETECTEDHenry [facility] Comment on above:Performed By: #### SANGITAANEL #### [facility] [address] [place] [address] Dr. Kyle AGUILERAPASSTrinity Health System East CampusComment on above:Performed By: #### SANGITAANEL #### [facility] [address] [place] [address] Dr. Kyle Ngo [employer] [facility] HEADERGI PANEL [facility] Comment on above:Performed By: #### JONELL #### [facility] [address] [place] [address] Dr. Kyle Velez ECOLIGI PANEL DIARRHEAGENIC E.COLI / SHIGELLAParkwood HospitalComment on above:Performed By: #### JONELL #### [facility] [address] [place] [address] Dr. Kyle Velez INFOSEE Community Memorial HospitalComment on above: Result Comment: EAEC- Enteroaggregative E. Coli EPEC- Enteropathogenic E. Coli ETEC- Enterotoxigenic E. Coli lt/st STEC- Shigella-like toxin-producing E. Coli stx1/stx2 EIEC- Shigella/Enteroinvasive E. ColiPerformed By: #### JONELL #### [facility] [address] [place] [address] Dr. Kyle Velez PARASITESGI PANEL PARASITESParkwood Hospital Comment on above:Performed By: #### SANGITAANEL #### [facility] [address] [place] [address] Dr. Kyle Velez VIRUSGI PANEL VIRUSESParkwood HospitalComment on above:Performed By: #### SANGITAANEL #### [facility] [address] [place] [address] Dr. Kyle Avelarvirus GI/GIINot detectedNormalNOT DETECTEDHenry County HospitalComment on above:Performed By: #### JONELL #### [facility] [address] [address] [address] Kyle Hung ShigelloidesNot detectedNormalNOT DETECTEDThe [facility] WestComment on above:Performed By: #### GIPANEL #### [facility] [address] [address] [address] Kyle AdamsonRotavirus ANot detectedNormalNOT DETECTEDThe [facility] Comment on above:Performed By: #### GIPANEL #### [facility] [address] [address] [address] Kyle AdamsonSalmonellaNot detectedNormalNOT DETECTEDThe [facility] Comment on above:Performed By: #### GIPANEL #### [facility] [address] [address] [address] Kyle AdamsonSapovirusNot detectedNormalNOT DETECTEDThe [facility] Comment on above:Performed By: #### GIPANEL #### [facility] [address] [address] [address] Kyle AdamsonSTECNot detectedNormalNOT DETECTEDThe [facility] WestComment on above:Performed By: #### GIPANEL #### [facility] [address] [address] [address] Kyle CarbajalbrioNot detectedNormalNOT DETECTEDThe [facility] WestComment on above:Performed By: #### GIPANEL #### [facility] [address] [address] [address] Kyle Gamezio CholeraNot detectedNormalNOT DETECTEDHenry [facility] Hospital Comment on above:Performed By: #### GIPANEL #### [facility] [address] [address] [address] Kyle Zafar. EnterocoliticaNot detectedNormalNOT DETECTEDThe [facility] WestComment on above:Performed By: #### GIPANEL #### [facility] [address] [address] [address] Kyle AdamsonPROF CHEM 8 (BAS METB)on 38-10-0308Qqyjs gap [Moles/Vol]17.9 mmol/LNormalThe [facility] WestComment on above:Performed By: #### BMP #### [facility] [address] [address] [address] Kyle AdamsonCalcium [Mass/Vol]9.6 mg/dLNormal8.5-10.1[facility] Comment on above:Performed By: #### BMP #### [facility] [address] [address] [address] Kyle AdamsonChloride [Moles/Vol]98 mmol/ZMqneva38-151Jim [facility] Comment on above:Performed By: #### BMP #### [facility] [address] [address] [address] Kyle AdamsonCO2 [Moles/Vol]24.4 mmol/NYwmzkz75.0-32.0The [facility] Comment on above:Performed By: #### BMP #### [facility] [address] [place] [address] Dr. Kyle AdamsonCreatinine [Mass/Vol]1.65 mg/dLCritically high0.70-1.30The [facility] WestComment on above:Performed By: #### BMP #### [facility] [address] [place] [address] Dr. Kyle HoltGFR-AF WVSQPPBT69 mL/min/1.32l5Cmtxojqzdc low>=60The [facility] WestComment on above:Performed By: #### BMP #### [facility] [address] [address] [address] Kyle HoltGFR-NON AF NZPRYIJG13 mL/min/1.57p2Kxywaexuqa low>=60The [facility] WestComment on above:Performed By: #### BMP #### [facility] [address] [address] [address] Kyle AdamsonGlucose [Mass/Vol]124 mg/dLCritically vvvd59-603Jre [facility] WestComment on above:Performed By: #### BMP #### [facility] [address] [address] [address] Kyle AdamsonPotassium [Moles/Vol]4.3 mmol/LNormal3.5-5.1[facility] Comment on above:Performed By: #### BMP #### [facility] [address] [address] [address] Kyle AdamsonSodium [Moles/Vol]136 mmol/SXzouov687-859Imj [facility] Comment on above:Performed By: #### BMP #### [facility] [address] [address] [address] Kyle AdamsonUrea nitrogen [Mass/Vol]31.0 mg/dLCritically high7.0-18.0[facility] HospitalComment on above:Performed By: #### BMP #### [facility] [address] [address] [address] Kyle Tillman nitrogen/Creatinine [Mass ratio]18.8 mg/mgNormalThSt. John of God HospitalComment on above:Performed By: #### BMP #### [facility] [address] [address] [address] Kyle AdamsonCT ABD/PELV W CONon 76-77-1372HB ABD/PELV W CONEXAMINATION: CT ABD/PELV W CON, [...] Electronically authenticated by: TERRA GUNTER Date: 2022-05-31 07:13Norm[address] Medical Centere [facility] WestCREATININEon 75-64-2152Rmmzummxbu [Mass/Vol]0.95 mg/dLNormal 0.70-1.30[facility] HospitalComment on above:Performed By: #### CREA #### [facility] [address] [place] [address] Dr. Kyle HoltGFR-AF ST LUCIAN>60Normal>=60The [facility] WestComment on above:Performed By: #### CREA #### [facility] [address] [place] [address] Dr. Kyle HoltGFR-NON AF ST LUCIAN>60Normal>=60The [facility] WestComment on above:Performed By: #### CREA #### [facility] [address] [place] [address] Dr. Wright ChangTN Sinus w/o Contrast*on 53-74-1076OP Sinus w/o Contrast*CLINICAL HISTORY: Sinus drainage. No [...] signed by Elda Mills on 02/08/2022 0855NormalNorthern [place] Medical SpecialistBasic Metabolic Panelon 39-17-6718Ccavy gap [Moles/Vol]17 mmol/LGqckyg41-57Kqiilnhb [place] [facility] SpecialistComment on above:Result Comment: Effective 07/30/2019 reference range changed.Performed By: #### BMP #### [facility] [address] [place], [place] [id number] [Mass/Vol]9.6 mg/dLNormal8.6-10.2[facility] SpecialistComment on above:Performed By: #### BMP #### [facility] [address] [place], [place] [id number] [Moles/Vol]103 mmol/SSptxgq24-076Xcnizbma [place] Medical SpecialistComment on above:Performed By: #### BMP #### [facility] [address] [place], [place] [id number] [Moles/Vol]23 mmol/RUqdmup78-83Daurwwkd [place] [facility] SpecialistComment on above:Performed By: #### BMP #### [facility] [address] [place], [place] [id number] [Mass/Vol]0.9 mg/dLNormal0.7-1.4Nortphoenix children's hospitaln [facility] SpecialistComment on above:Performed By: #### BMP #### [facility] [address] [place], [place] [id number] mL/min/1.23t1Luyfgj>60NortChildren's Hospital for Rehabilitation SpecialistComment on above:Performed By: #### BMP #### [facility] [address] [place], [place] [id number] mL/min/1.57s2Bhebqp>60NortSt. Rita's Hospital Medical SpecialistComment on above:Performed By: #### BMP #### [facility] [address] [place], [place] [id number] [Mass/Vol]113 mg/bRFyit15-19Pfibkfrb [place] Medical SpecialistComment on above:Result Comment: For FASTING Glucose --- ADA reference ranges: Normal 65-99 mg/dl Prediabetes 100-125 Diabetes >/= 126Performed By: #### BMP #### [facility] [address] [place], [place] [id number] [Moles/Vol]5.0 mmol/LNormal3.5-5.5[facility] SpecialistComment on above:Result Comment: Specimen is hemolyzed. Results may be affected.Performed By: #### BMP #### [facility] [address] [place], [place] [id number] [Moles/Vol]138 mmol/JDrqiin875-139Ochicyyi [facility] SpecialistComment on above:Performed By: #### BMP #### [facility] [address] [place], [place] [id number] nitrogen [Mass/Vol]14 mg/dLNormal7-25[facility] SpecialistComment on above:Performed By: #### BMP #### [facility] [address] [place], [place] [id number] Vital Signs Date TimeVital SignValuePerforming YlctalrfpKvqukobt27-20-9359 10:41-0500Body hqzorl969.42 cmBenjamin Ball DO Work Phone: [phone]11-04-2025 10:41-0500 Body mass index (BMI) [Ratio]35.2 kg/a0Lgblnlcp Ball DO Work Phone: [phone]11-04-2025 10:41-0500 Body ajsyfx000.22 kgBenjamin Ball DO Work Phone: [phone]11-04-2025 10:41-0500 Diastolic blood anbakhll96 mm[Hg]Mark Ball DO Work Phone: [phone]11-04-2025 10:41-0500 Heart rate82 /minBenjamin Ball DO Work Phone: [phone]11-04-2025 10:41-0500 Respiratory rate12 /minBenjamin Ball DO Work Phone: [phone]11-04-2025 10:41-0500 Systolic blood ncfpsvmi364 mm[Hg]Mark Ball DO Work Phone: [phone]10-14-2025 10:55-0400 Body zaalsv790.42 cmBenjamin Ball DO Work Phone: [phone] [place], [place] [address]10-14-2025 10:55-0400 Body mass index (BMI) [Ratio]35.8 kg/d1Dblzprix Ball DO Work Phone: [phone] [place], [place] [address]10-14-2025 10:55-0400 Body ylqzmx115.15 kgBenjamin Ball DO Work Phone: [phone] [place], [place] [address]10-14-2025 10:55-0400 Diastolic blood mm[Hg]Mark Ball DO Work Phone: [phone]10-14-2025 10:55-0400 Heart rate79 /minBenjamin Ball DO Work Phone: [phone] [place], [place] [address]10-14-2025 10:55-0400 Respiratory rate12 /minBenjamin Ball DO Work Phone: [phone] [place], [place] [address]10-14-2025 10:55-0400 Systolic blood mm[Hg]Mark Ball DO Work Phone: [phone] [place], [place] [address]408-20-2025 08:45-0400 Body mass index (BMI) [Ratio]36.41 kg/y6Rbwltz Tez DO Work Phone: [phone] [place], [place] [address]Kfroxifuyj55-24-5903 08:45-0400Body .19 kgLeanne Tez DO Work Phone: [phone] [place], [place] [address]Vzcahfkmey46-92-9134 08:45-0400Diastolic blood aiphdpqr58 mm[Hg]Jen Tez DO Work Phone: [facility]Vjisoszfcu81-41-3638 08:45-0400Heart rate77 /min Jen Tez DO Work Phone: [facility] WashingtonPpfeknmgqc09-48-7785 08:45-6674UgG0% (BldA) [Mass fraction]95 %Jen Tez DO Work Phone: [facility] WashingtonXzmkuzsmwx78-87-0541 08:45-0400Systolic blood xxwswdic287 mm[Hg]Jen Tez DO Work Phone: [phone]-[facility] WashingtonPpdtjqzrpd88-79-2547 09:29-0400Body rdaahb948.42 cmBenjamin Ball DO Work Phone: [facility]07-08-2025 09:29-0400 Body mass index (BMI) [Ratio]36.1 kg/r9Evrcpwvb Ball DO Work Phone: [facility]07-08-2025 09:29-0400 Body llinsi474.28 kgBenjamin Ball DO Work Phone: [facility]06-25-2025 09:00-0400 Body mass index (BMI) [Ratio]36.41 kg/b6Wlbonp Tez DO Work Phone: [phone] [place], [place] [address]Rulkwbbgfg48-20-4097 09:00-0400Body etazcx086.19 kgLeanne Tez DO Work Phone: [phone]-[facility] WashingtonTlqtvvocou36-33-0530 09:00-0400Diastolic blood zjodbrwh85 mm[Hg]Jen Tez DO Work Phone: [phone]-[facility] WashingtonLlkdwulpwb36-27-0445 09:00-0400Heart rate94 /min Jen Tez DO Work Phone: [phone]-[facility] WashingtonLwmgklyxxh29-04-3544 09:00-0067OhH5% (BldA) [Mass fraction]95 %Jen Tez DO Work Phone: [phone] HospitalG[facility] [place]Xeisebveqh89-57-1284 09:00-0400Systolic blood jsspjyxg619 mm[Hg]Jen Tez DO Work Phone: [phone] [place], [place] [address]Ertjzxqaos51-32-2050 14:01-0400Body .42 cmBenjamin Ball DO Work Phone: [facility]06-16-2025 14:01-0400 Body mass index (BMI) [Ratio]36.1 kg/y0Qbcoprib Ball DO Work Phone: [facility]06-16-2025 14:01-0400 Body xxskxcyyxwr39.2 [degF]Mark Ball DO Work Phone: [facility]06-16-2025 14:01-0400 Body pvdvka357.28 kgBenjamin Ball DO Work Phone: [facility]06-16-2025 14:01-0400 Diastolic blood mm[Hg]Mark Ball DO Work Phone: [facility]06-16-2025 14:01-0400 Heart rate83 /minBenjamin Ball DO Work Phone: [facility]06-16-2025 14:01-0400 Systolic blood lhvgrozp382 mm[Hg]Mark Ball DO Work Phone: [facility]04-11-2025 09:15-0400 Body igyygm614.4 cmPaul Biedenbach DO Work Phone: [phone] WashingtonRwqmnnmsul05-78-8176 09:15-0400Body mass index (BMI) [Ratio]36.28 kg/m2Paul Biedenbach DO Work Phone: [phone] WashingtonEtilmmfjsc37-73-0708 09:15-0400Body nudhsz153.74 kgPaul Biedenbach DO Work Phone: [phone]2025 15:56-0400Body .42 cm[facility]2025 15:56-0400Body mass index (BMI) [Ratio]37.3 kg/q4QiawpeffcLima Memorial Hospital2025 15:56-0400Body rumphy522.48 kgL[facility] Hospital2025 15:56-0400Diastolic blood hfswnisw75 mm[Hg][facility]2025 15:56-0400 Heart rate80 /[facility]2025 15:56-0400 Respiratory rate12 /[facility]2025 15:56-0400 Systolic blood hrwactea130 mm[Hg][facility]01-16-2025 10:10-0500Body itomye159.42 cmL[facility] Hospital01-16-2025 10:10-0500Body mass index (BMI) [Ratio]36.8 kg/b4TxvoxwdlnLima Memorial Hospital01-16-2025 10:10-0500Body akbpvy223.6 kgL[facility] Hospital 08-09-2024 10:10-0500Diastolic blood zdnsquce92 mm[Hg][facility]01-16-2025 10:10-0500Heart rate89 /[facility] 08-09-2024 10:10-0500Respiratory rate12 /[facility] 08-09-2024 10:10-0500Systolic blood fkrgovgy033 mm[Hg][facility]05-06-2024 10:57-0400Diastolic blood mm[Hg]DO Mark Ball Work Phone: [facility]05-06-2024 10:57-0400 Heart rate75 /minDO Mark Ball Work Phone: [phone]05-06-2024 10:57-0400 Respiratory rate18 /minDO Mark Ball Work Phone: [facility]05-06-2024 10:57-0400 SaO2% (BldA) [Mass fraction]98 %DO Mark Ball Work Phone: [facility]05-06-2024 10:57-0400 Systolic blood okmztznl129 mm[Hg]DO Mark Ball Work Phone: [facility]05-06-2024 09:16-0400 Body .42 cmDO Mark Ball Work Phone: [facility]05-06-2024 09:16-0400 Body zfsroa033.56 kgDO Mark Ball Work Phone: [facility]10-23-2023 14:45-0400 Body shhitd584.42 cmMichael Blank Other [employer] Other 10-23-2023 14:45-0400Body mass index (BMI) [Ratio] 36.15 kg/o2Fcrzfsv Blank Other [employer] Other 10-23-2023 14:45-0400Body mnnmzltergn22.9 [degF] Mulugeta Blank Other [employer] Other 10-23-2023 14:45-0400Body .29 kgMichael Blank Other [employer] Other 10-23-2023 14:45-0400Diastolic blood piqlxbcp71 mm[Hg] Mulugeta Blank Other [employer] Other 10-23-2023 14:45-0400Systolic blood guifkxva948 mm[Hg] Mulugeta Blank Other [employer] Other 10-20-2023 10:30-0400Body wlruji741.42 cmBenjamin Ball Other [employer] Other 10-20-2023 10:30-0400Body mass index (BMI) [Ratio] 36.62 kg/a4Ccwgbyzr Ball Other [employer] Other 10-20-2023 10:30-0400Body .92 kgBenjamin Ball Other [employer] Other 10-20-2023 10:30-0400Diastolic blood fwzgapud27 mm[Hg] Mark Ball Other [employer] Other 10-20-2023 10:30-0400Respiratory rate12 /minBenjamin Ball Other [employer] Other 10-20-2023 10:30-0400Systolic blood dkxafloa004 mm[Hg] Mark Ball Other [employer] Other 03-10-2023 11:30-0500Body xroifm533.42 cmBenjamin Ball Other [employer] Other 03-10-2023 11:30-0500Body mass index (BMI) [Ratio] 36.15 kg/n2Tedzewta Ball Other [employer] Other 03-10-2023 11:30-0500Body dxysnk679.29 kgBenjamin Ball Other [employer] Other 03-10-2023 11:30-0500Diastolic blood eokdngtn37 mm[Hg] Mark Ball Other [employer] Other 03-10-2023 11:30-0500Systolic blood ohpaiivp084 mm[Hg] Mark Ball Other [employer] Other 09-27-2022 10:45-0400Body nhhokt468.42 cmCameron Ditty Other [employer] Other 09-27-2022 10:45-0400Body mass index (BMI) [Ratio] 36.28 kg/u7Bmueepu Ditty Other [employer] Other 09-27-2022 10:45-0400Body xbiebn276.74 kgCameroeddi Chester Other [employer] Other 09-27-2022 10:45-0400Diastolic blood mm[Hg]Axel Briggs Other [employer] Other 09-27-2022 10:45-0400Systolic blood zsunldpg497 mm[Hg] Axel Briggs Other [employer] Other 07-20-2022 17:30-0400Body kaprid198.42 cmDavid Hykes Other [employer] Other 07-20-2022 17:30-0400Body mass index (BMI) [Ratio] 35.09 kg/m1Tejno Hykes Other [employer] Other 07-20-2022 17:30-0400Body bgecrf906.66 kgDavid Hykes Other [employer] Other Encounters Encounter DateEncounter TypeCare ProviderFacilityStart: 05-28-2025 End: 51-99-5485tjmcfvyzxrImoeclyh Ball DO Work Phone: -[facility] ClinicStart: 05-28-2025 End: 93-10-3833Jvgragc encounter procedureBenjamin Ball DO-[facility] Work Phone: Start: 05-07-2025 End: 61-93-1217qeigymoxsrRlnimnbs Ball DO Work Phone: [facility] Work Phone: Start: 05-07-2025 End: 66-91-9973Dbdkgcv encounter procedureBenjamin Ball DO-[facility] Work Phone: Start: 05-07-2025 End: 69-28-3170Wkjewkd encounter statusBeeddisteven [facility] Foundationtart: 03-13-2025 End: 35-04-9176Aehyjw Justina Reagan DO Work Phone: noms FNR PULMStart: 03-13-2025 End: 79-27-3933Burjjk flowsHiren Reagan DO Work Phone: noms FNR PULMStart: 03-13-2025 End: 70-71-7737Lcdoqf outpatient visit 25 minutesJen Reagan DO Work Phone: noms FNR PULMComment on above:Chronic obstructive pulmonary disease, unspecified COPD type (HCC) (Primary Dx); Cigarette smoker; HypersomnolenceStart: 01-29-2025 End: 43-70-6330wasklhjawfVgfkamcv [facility] Work Phone: [facility] Work Phone: Start: 01-29-2025 End: 95-12-7225Pfdsvzh encounter Neva Hickman [facility] Work Phone: Start: 01-16-2025 End: 59-39-9104Ugdnvudarrius Reagan DO Work Phone: noms FNR PULMStart: 01-16-2025 End: 55-24-1176Jtuyyh flowsHiren Reagan DO Work Phone: noms FNR PULMStart: 01-16-2025 End: 44-28-7303Cdtpns outpatient new 45 minutesJen Reagan DO Work Phone: noms FNR PULMComment on above:Chronic obstructive pulmonary disease, unspecified COPD type (HCC) (Primary Dx); Cigarette smokerStart: 01-16-2025 End: 49-93-1822agpnhbciftLWAXQU K STRACKNot AvailableStart: 01-07-2025 End: 05-26-9801Yracscp encounter statusJen Reagan DO Work Phone: noms HealthcareStart: 01-07-2025 End: 66-54-6564Uosvxag encounter procedureMulugeta Bella MD-[facility] Infect Dis Work Phone: Start: 11-94-7769Xwb-patient / Non-visitOutside Provider-[facility] Work Phone: Start: 12-25-2024 End: 99-26-1963Lxjhkn flowsheetEmxenia Toro MD Work Phone: noms SWS DERMStart: 12-25-2024 End: 11-31-5519Vjhevx flowsheetEmxenia Toro MD Work Phone: noms SWS DERMStart: 12-25-2024 End: 86-68-2717Xaiuwd outpatient visit 25 minutesEmxenia Toro MD Work Phone: noms SWS DERMComment on above:Tinea manuum (Primary Dx); Skin tag; Neoplasm of unspecified behavior of bone, soft tissue, and skin; Actinic keratosisStart: 12-25-2024 End: 38-38-6827qwgwnoagsiICCXF A PETITTINot AvailableStart: 12-18-2024 End: 80-30-9256Ukiksynil encounterBenjamin E Ball DO Work Phone: noms FNR FMStart: 23-48-8511zwjayivtlxDkbrwmkoqSt. [facility] Work Phone: Start: 75-26-4703Zjm-patient / Non-visitFirsentara [facility] Phys[facility] Work Phone: Start: 11-02-2024 End: 87-04-8852Yseekc flowsheetMasonul S Biedenbach DO Work Phone: noms ENT SANDUSKYStart: 11-02-2024 End: 48-83-0989Nbebwf flowsheetPaul S Biedenbach DO Work Phone: noms ENT SANDUSKYStart: 11-02-2024 End: 09-49-0274mbjbkpoxhaQINS S BIEDENBACHNot AvailableStart: 11-02-2024 End: 07-43-1149Togjft outpatient visit 25 minutesPaul S Biedenbach DO Work Phone: noms ENT SANDUSKYComment on above:Chronic cough (Primary Dx); Chronic rhinitis; Tobacco abuse; Laryngopharyngeal reflux (LPR)Start: 48-22-1574Oxs-patient / Non-visitAshe [facility] Hospital Physician GroupMid-[facility] Work Phone: Start: 10-17-2024 End: 05-11-7798ufakctaogqFafttbzirKettering Health [facility] Work Phone: Start: 10-17-2024 End: 99-84-4657Kewzxea encounter procedureAshe [facility] Hospital Physician [facility] Work Phone: Start: 08-14-2024 End: 26-96-2973Gavbhg flowsheetNatalie A Felter AUTO DETAILER-PARTITION MAKING MACHINE OPERATOR Work Phone: noms [facility] DERMStart: 08-14-2024 End: 06-20-6749Kgjwxm flowsheetNatalie A Felter AUTO DETAILER-PARTITION MAKING MACHINE OPERATOR Work Phone: noms [facility] DERMStart: 08-14-2024 End: 86-71-0832Fppgut outpatient visit 10 minutesNatalie A Felter AUTO DETAILER-PARTITION MAKING MACHINE OPERATOR Work Phone: noms [facility] DERMComment on above:Tinea manusStart: 08-14-2024 End: 68-15-6063gfkyqdfdpyTXGDRYQ A FELTERNot AvailableStart: 08-09-2024 End: 85-77-1188Gylihuc encounter procedureAshe Memorial Hospital Physician GroupOhioHealth [facility] Work Phone: Start: 06-14-2024 End: 18-14-9802Dmeejt flowsheetNatalie A Felter AUTO DETAILER-PARTITION MAKING MACHINE OPERATOR Work Phone: NOMS SWS DERMStart: 06-14-2024 End: 14-95-0615Uszxgz flowsheetNatalie A Felter AUTO DETAILER-PARTITION MAKING MACHINE OPERATOR Work Phone: NOMS SWS DERMStart: 06-14-2024 End: 03-31-9669Biemqvuee encounterNatalie A Felter AUTO DETAILER-PARTITION MAKING MACHINE OPERATOR Work Phone: NOMS SWS DERMStart: 06-14-2024 End: 01-06-6144Ontcid outpatient visit 15 minutesNatalie A Felter AUTO DETAILER-PARTITION MAKING MACHINE OPERATOR Work Phone: NOMS SWS DERMComment on above:Tinea manus; High risk medication use; Other atopic dermatitisStart: 06-14-2024 End: 78-51-2559rixfozrfevNZHADTL A FELTERNot AvailableStart: 05-31-2024 End: 10-06-4211Enruii flowsheetNatalie A Felter AUTO DETAILER-PARTITION MAKING MACHINE OPERATOR Work Phone: NOMS SWS DERMStart: 05-31-2024 End: 33-29-1978Nohitf flowsheetNatalie A Felter AUTO DETAILER-PARTITION MAKING MACHINE OPERATOR Work Phone: NOSS SWS DERMStart: 05-31-2024 End: 24-63-5773Adfgio outpatient visit 15 minutesNatalie A Felter AUTO DETAILER-PARTITION MAKING MACHINE OPERATOR Work Phone: NOYI SWS DERMComment on above:Tinea manus (Primary Dx); Actinic keratosis; Other atopic dermatitisStart: 05-31-2024 End: 22-49-8435xnknkbwgquIBFEIEN A FELTERNot AvailableStart: 05-17-2024 End: 78-29-3112Ngwpus flowsheetNatalie A Felter AUTO DETAILER-PARTITION MAKING MACHINE OPERATOR Work Phone: NOMS SWS DERMStart: 05-17-2024 End: 81-60-6786Aheokq flowsheetNatalie A Felter AUTO DETAILER-PARTITION MAKING MACHINE OPERATOR Work Phone: NOMS SWS DERMStart: 05-17-2024 End: 81-45-2510Brymxl outpatient visit 25 minutesNatalie A Felter AUTO DETAILER-PARTITION MAKING MACHINE OPERATOR Work Phone: noms [facility] DERMComment on above:Tinea manus (Primary Dx); Encounter for removal of suturesStart: 05-17-2024 End: 65-80-0512sbcmcnjqckTZKJCTX A FELTERNot AvailableStart: 05-07-2024 End: 38-78-4286Mvdjjt flowsheetNatalie A Felter AUTO DETAILER-PARTITION MAKING MACHINE OPERATOR Work Phone: noms SWS DERMStart: 05-07-2024 End: 63-22-8711Cfbwto flowsheetNatalie A Felter AUTO DETAILER-PARTITION MAKING MACHINE OPERATOR Work Phone: noms SWS DERMStart: 05-07-2024 End: 07-85-4590Valnigb encounter procedureNatalie A Felter AUTO DETAILER-PARTITION MAKING MACHINE OPERATOR Work Phone: noms SWS DERMComment on above:Rash and other nonspecific skin eruptionStart: 05-07-2024 End: 74-22-5788tjkqtmeydsYKZIGWC A FELTERNot AvailableStart: 07-70-0881Coeiuxq encounter statusSelect [facility] Shawtart: 11-28-2023 End: 16-52-8425ekkqddcwtfWdjhaxj J DittyFacility:[facility] Shawtart: 40-79-8364Avo-patient / Non-visitDO Mark Wheatley Work Phone: [facility] Work Phone: Start: 11-28-2023 End: 68-35-7823Utfgturrb to same day surgery centerDO Mark Abdelrahman Work Phone: [facility] Work Phone: Start: 11-28-2023 End: 06-92-1839jlbmyyurrzCR Mark Abdelrahman Work Phone: [facility] Work Phone: Start: 08-29-2023 End: 29-57-4350eqdkbowuxrKkkaeyja Ball Other [facility] [employer] Other Start: 39-77-2976Sudesg outpatient visit 15 minutes Mark BallFPG [facility] ClinicStart: 08-25-2023 End: 72-21-9970timuqjdxufNguzdckm Ball Other [employer] Other Start: 62-39-1711Jclmvs outpatient visit 15 minutes Mark BallFPG [facility] ClinicStart: 05-16-2023 End: 15-58-0701sphwljvfgaMqyphyl Blank Other [facility] [employer] Other Start: 85-23-6308Dwhmap outpatient visit 25 minutes Mulugeta BlankFPG Infectious DiseaseStart: 05-13-2023 End: 82-76-6414dlxxlechapCvmtsfpt Ball Other [facility] [employer] Other start: 69-19-3123Oxuzoq outpatient visit 25 minutes Mark BallFPG [facility] ClinicStart: 05-02-2023 End: 35-51-6838yonuzhnbkzMgwxqnu Blank Other [facility] [employer] Other Start: 96-60-4496Jmuktrrgh encounterMichael BlankFPG Infectious DiseaseStart: 04-28-2023 End: 10-10-2785xyduidcqnhPkkivqxf Ball Other [facility] [employer] Other Start: 71-57-7639Ghrkjglrk encounterBenjamin BallFPG [facility] ClinicStart: 04-20-2023 End: 86-94-6914ymkymlinepCyjzjcse Ball Other [employer] Other start: 73-03-4864Fwcnoxusz encounterBenjamin BallFPG [facility] ClinicStart: 03-31-2023 End: 09-25-0510bqgjzilnwfGfhacelu Ball Other [facility] Other start: 97-92-4262Ljnuieanf encounterBenjamin BallFPG [facility] ClinicStart: 01-26-2023 End: 21-75-8479ynrpsyphljYobjdqqk Ball Other [employer] Other Start: 91-55-8387Fzvndjros for general adult medical examination without abnormal findingsBenjamin BallFPG [facility] ClinicStart: 14-00-8470Aympbsjjp encounterBenjamin BallFPG [facility] ClinicStart: 11-29-2022 End: 64-54-3477bfwkyhhfgmQrucqgns Ball Other [employer] Other Start: 91-00-8716Gdbqdk outpatient visit 15 minutes Mark BallFPG [facility] ClinicStart: 10-01-2022 End: 72-85-4000pzshwyvvvyYgbgdohv Ball Other [employer] Other Start: 77-06-2150Fonzfa outpatient visit 15 minutes Mark BallFPG [facility] ClinicStart: 06-67-6760Sdpiorywa encounterBenjamin BallFPG [facility] ClinicStart: 09-27-2022 End: 57-93-3816dcnffwklxwLG MARK BALLFacility:O1Vezcy: 09-24-2022 End: 10-19-3997lxuyoqsxojYqnaughw Ball Other [employer] Other Start: 92-65-3357Qaylbn outpatient visit 15 minutes Mark BallFPG [facility] ClinicStart: 09-06-2022 End: 88-87-6596nmsdwtqmzsSnuxrfzz Ball Other [employer] Other Start: 78-19-2540Zporim outpatient visit 15 minutes Mark BallFPG [facility] ClinicStart: 06-02-2022 End: 04-62-1347fsnejfilziDebomge Ditty Other [employer] Other Start: 55-69-0246Mzziknuso encounterCameron DittyFPG GastroenterologyStart: 05-28-2022 End: 47-42-5286iyckttgvceOW DOCTOR MISCFacility:F3Shvai: 05-27-2022 End: 62-72-7936jlzcahfsyfAazhgyq Ditty Other [employer] Other Start: 30-82-4721Qwxjjfefc encounterCameron DittyFPG GastroenterologyStart: 05-24-2022 End: 14-51-1750lplkucohjpHmzncwh Ditty Other [employer] Other Start: 48-97-4124Kfidbbitr encounterCameron DittyFPG GastroenterologyStart: 05-10-2022 End: 17-36-1843olvwnvmpkuXimbkxe Ditty Other [employer] Other Start: 42-31-3677Arakpddza encounterCameron DittyFPG GastroenterologyStart: 04-26-2022 End: 37-09-0157choyaxmdenYifkufn Ditty Other [employer] Other Start: 32-99-9833Ewbywvkdl encounterCameron DittyFPG GastroenterologyStart: 04-20-2022 End: 69-02-4471spxntyvzbhPzgilnu Ditty Other [employer] Other Start: 38-00-7639Bdyvoke encounter procedureCameron DittyFPG GastroenterologyStart: 03-18-2022 End: 82-08-4199jyqpubfhsgAssfmkh Ditty Other [employer] Other start: 96-79-3849Mkaqfnxhk encounterCameron DittyFPG GastroenterologyStart: 03-01-2022 End: 08-12-9285jycbbkttpsGhkwj Hykes Other [facility] [employer] [employer] Other Start: 29-12-2977Dgmmytacg encounterDavid HykesFPG GastroenterologyStart: 02-22-2022 End: 00-95-5300usjkcxdzalTyrjq Hykes Other [facility] [employer] Other Start: 57-91-6356Xbgslpebt encounterDavid HykesFPG GastroenterologyStart: 02-10-2022 End: 49-42-8471cirbtmxcdhGmuxi Hykes Other [facility] [employer] [employer] Other Start: 41-20-2559Lruuwj outpatient visit 25 minutes Terra MichellekesFPG GastroenterologyStart: 10-65-4253Takxiiuka for other preprocedural examinationDR STERLING [facility]Start: 12-01-2021 End: 95-94-6332nlkhgjwjodGM MARK WHEATLEYFacility:E8Einxf: 12-01-2021 End: 65-68-2692Rhdiutupw for other preprocedural examinationDR MARK WHEATLEY Facility:N2Jaxkf: 62-03-9772Vuzqp health examinationBensmiley Wheatley Other [place] [employer] Other Procedures DateProcedureProcedure DetailPerforming ClinicianStart: 10-35-1014XZYAJBXDBMO SKIN LESIONEmily Rama Toro MD Work Phone: Start: 11-50-1598OAAK / NAIL BIOPSYEmxenia Toro MD Work Phone: Start: 98-50-8023CSFWFIQIYCS SKIN LESIONNatalie A Adelfoer AUTO DETAILER-PARTITION MAKING MACHINE OPERATOR Work Phone: Start: 05-07-2024 End: 58-09-4224TFDF / NAIL BIOPSYNatalie Rama Escobar AUTO DETAILER-PARTITION MAKING MACHINE OPERATOR Work Phone: Start: 40-66-0742RsmgwersdmvOZ Mark Wheatley Work Phone: Start: 50-64-7299Ulupddu examination of patient Mark Wheatley Other Start: 57-86-2087Kjazuret mellitus screeningBeirwin Wheatley Other Start: 86-08-6209Cpchwdruqaxrrd screeningBensteven Wheatley Other Start: 98-76-2129Hrwfpfcuy for malignant neoplasm of colonBensteven Wheatley Other Start: 05-70-3386Hfuyuasep for malignant neoplasm of prostateBensteven Wheatley Other Depression screeningMark Wheatley Other Screening for malignant neoplasm of prostateBensteven Wheatley Other Plan of Treatment DateCare ActivityDetailAuthorStart: 49-89-1584Zgqrkjjas for malignant neoplasm of colonNOMS HealthcareStart: 08-15-2025 End: 32-38-9724Fhxqgnr encounter procedureNOMS SWS DERMStart: 06-07-2025 End: 45-04-3246Cxhtzlj encounter awucgxbrx25/14/2025 9:45 AM EST Office Visit [facility] ELIEL NORMAN [address] [place] [address] Jen Reagan, [address] [place] [address] NOMS FNR PULMStart: 31-13-0229Meitvadqu vaccinationNOMS HealthcareStart: 03-13-2025 End: 08-90-7742Hkmzhcy encounter procedureNOMS FNR PULMComment on above:Arrived Start: 02-11-2025 End: 51-69-3098Trnouit encounter qnqksuqgl28/21/2025 9:15 AM EDT Office Visit [facility] [address] [place] [address] [place] [phone] Sterling Cardona, [address] [address] NOMS ENT SANDUSKYStart: 01-16-2025 End: 80-82-0276Efxvnlk encounter procedureNOMS FNR PULMComment on above:Arrived Start: 12-25-2024 End: 28-98-8377Eajppne encounter juutqqjmp39/03/2025 11:00 AM EDT Office Visit [facility] S[facility] DERM [address] [place] [address] Chelsy Toro MD [address] [place], [place] [id number] ArrivedNOMS SWS DERMComment on above:ArrivedStart: 40-59-0851Ssefszv referralWvumedicine [facility] Work Phone: Start: 11-02-2024 End: 56-51-8160Jwwvbdeie function reportPulmonary Function Test Imaging Routine Chronic rhinitis Chronic cough Expected: 11/02/2024 (Approximate), Expires: 11/02/2025[facility] Work Phone: comment on above:Expected: 11/02/2024 (Approximate), Expires: 11/02/2025Start: 08-14-2024 End: 74-91-6699Kyjhdlf encounter htdimxkgq48/21/2025 10:10 AM EST Office Visit [facility] DERM [address] [place] [address] Sulma Escobar APRN-BRYSON [address] [place] [address] ArrivedNOMS SWS DERMComment on above: ArrivedStart: 07-11-2024 End: 75-17-7967Dhzsrqq encounter povagjlhn83/18/2024 9:25 AM EST Office Visit [facility] DERM [address] [place] [address] Sulma Escobar, AUTO DETAILER-PARTITION MAKING MACHINE OPERATOR [address] [place] [address] NOMS SWS DERMStart: 07-05-2024 End: 51-62-3202Lsrmqzu aminotransferase [Enzymatic activity/volume] in Serum or PlasmaALT Lab Routine Tinea manus High risk medication use Expected: 07/05/2024 (Approximate), Expires: 06/14/2025[facility] Work Phone: comment on above:Expected: 07/05/2024 (Approximate), Expires: 06/14/2025Start: 07-05-2024 End: 78-27-7395Qkgpkgzww aminotransferase [Enzymatic activity/volume] in Serum or PlasmaAST Lab Routine Tinea manus High risk medication use Expected: 07/05/2024 (Approximate), Expires: 06/14/2025[facility] HealthcareComment on above: Expected: 07/05/2024 (Approximate), Expires: 06/14/2025Start: 06-14-2024 End: 16-54-7788Gzmfkdc encounter procedureNOMS SWS DERMComment on above:Arrived Start: 05-31-2024 End: 13-50-3942Znoglzz aminotransferase [Enzymatic activity/volume] in Serum or PlasmaALT Lab Routine Tinea manus Expected: 05/31/2024 (Approximate), Expires: 05/31/2025[facility] Work Phone: comment on above:Expected: 05/31/2024 (Approximate), Expires: 05/31/2025Start: 05-31-2024 End: 69-44-5115Yuvfbbqew aminotransferase [Enzymatic activity/volume] in Serum or PlasmaAST Lab Routine Tinea manus Expected: 05/31/2024 (Approximate), Expires: 05/31/2025NON[facility] HealthcareComment on above:Expected: 05/31/2024 (Approximate), Expires: 05/31/2025Start: 05-31-2024 End: 12-48-8741Phggcmi encounter procedureNOMS SWS DERMComment on above:Arrived Start: 05-17-2024 End: 59-47-8615Jatjzav encounter procedureNOMS SWS DERMComment on above:Arrived Start: 05-07-2024 End: 25-19-8256Kdwjziz encounter /14/2024 10:25 AM EDT Office Visit [facility]ERM [address] [place] [address] Sulma Escobar APRN-PARTITION MAKING MACHINE OPERATOR [address] [place] [address] ArrivedNOMS SWS DERMComment on above: ArrivedStart: 20-67-0727Dimpgqons vaccinationInfluenza Vaccine (#1)[facility] HealthcareStart: 20-09-4738LbcqcvkmiSelect Medical [facility] Hospital, Edwin Shawtart: 1960 Screening for malignant neoplasm of colonNOMS HealthcareDermatopathology exam Dermatopathology exam Pathology and Cytology Timed Rash and other nonspecific skin eruption ReleaseUpon Ordering for 1 Occurrences starting 05/07/2024[facility] Work Phone: comment on above:Release Upon Ordering for 1 Occurrences starting 05/07/2024ermatopathology examDermatopathology exam Pathology and Cytology Timed Neoplasm of unspecified behavior of bone, soft ti ssue, and skin Release Upon Ordering for 1 Occurrences starting 12/25/2024[facility] Work Phone: comqhuf on above:Release Upon Ordering for 1 Occurrences starting 12/25/2024Patient referralWvumedicine [facility] Work Phone: [facility] Immunizations Immunization DateImmunizationNotesCare FptbsigcAmlibbzt00-43-3604Exddwreoteea Conjugate Vaccine, 20 valentBenjamin Ball DO Work Phone: [facility]04-01-2021COVID-19 Vaccine Pfizer - Documentation Purposes OnlyBenkailashmin Ball Other [facility]03-11-2021COVID-19 Vaccine Pfizer - Documentation Purposes OnlyBenkailashmin Ball Other [facility] Payers DatePayer CategoryPayerPolicy [id number] [facility] CenterBS Member Subscriber Plan / Payer (Effective 2021-Present) Name: Matteo Hardy MemberID: [id number] Relation to Subscriber: Spouse Name: EMY HARDY Date of : 1965 (Home) Address: [address] [place] [id number] Payer ID: Not on file Type: Not on file Address: [facility] [id number] [place] [id number] [id number] 2..1.722122.3.57[id number] 2..1.355283.3.57[id number] 2..1.082410.3.57[id number] 2..1.202223.3.57[id number] 2..1.242371.3.579.2.796511-13-2393Bmstpfy5798632 2..1.570246.3.57[id number] 2..1.806376.3.57[id number] 2.0.1.021972.3.57[id number] 2..1.182279.3.57[id number] 2.0.1.991058.3.57[id number] 2.0.1.045660.3.579.2.788321-37-3383LefuNewark [id number] 2.0.1.102320.19Self-paySelf [id number]-[id number]-[id number] [id number] Social History DateTypeDetailFacilityUnknown if ever smokedN[facility]enterpoint [facility] center [facility] Other Start: 05-26-2023 End: 38-54-5234Gnf Assigned At BirthMineral Springs [facility] [employer] Other Start: 38-68-0487Ihvvtth smoking status NHISSmoker (finding)[facility]art: 66-93-9244Fgc [facility]igned [facility] Hospitaltart: 12-16-2022 End: 81-88-6419Muoccnq smoking status NHISSmokes tobacco dailyNOMS Healthcare History of tobacco useCigarette SmokerNOMS HealthcareHistory of tobacco useCigar SmokerNOMS HealthcareHistory of tobacco usePassive smokerNOMS HealthcareStart: 05-26-2023 End: 78-92-3224Dnqxqtsuj beverage intakeCurrent drinker of alcohol (finding)[facility] HealthcareStart: 05-26-2023 End: 98-01-1114Thnuvvleu beverage intakeNOMS HealthcareStart: 75-90-1668Jrhvrqv CommentdailyNOMS HealthcareStart: 18-65-4697Phzvne identityIdentifies as male gender (finding)[facility] HealthcareStart: 01-58-1738Isafad orientationHeterosexual (finding)[facility] HealthcareStart: 10-18-2024 End: 11-08-6837NxrUnml (finding)[facility] Goals DatePatient GoalDesired Activity/State Clinical Notes 12-08-2021 to 05-07-2025 Note Date & NccjVzbjWnrqxsrg57-81-0274 Evaluation note* Diagnosis Onset Date Resolution Status Admit Date Hypercholesteremia acuteOctober 2024 10:33amHypertensionacuteOctober 2024 10:33am Irritable bowel syndrome with constipationacuteOctober 2024 10:33am Nicotine addictionacuteOctober 2024 10:33amObesityacuteOctober 2024 10:33amScreening PSA (prostate specific antigen)acuteOctober 2024 10:33am Wellness examinationacuteOctober 2024 10:33amAt high risk for cardiovascular diseasedeletedOctober 2024 10:33amSuspected sleep apnea deletedOctober 2024 10:33am [facility] Work Phone: 1(138) 302-577808-20-2025 History of Present illness Narrative* Jen Reagan, DO - 03/13/2025 8:45 AM EDT Images from the original note were not included. Matteo Hardy presents today for follow up on COPD. [...] into each nostril Daily, Disp: , Rfl: Ylzxpezzwjc-Koulanwbc-Ndacpv (Trelegy Ellipta) 100-62.5-25 MCG/ACT aerosol powder , [...] request of Phys. EHR Cmte Gas bloat syndrome 01/07/2025 Gastroesophageal reflux disease [...] COPD. Jen Reagan DO documented in this encounterMercy Hospital WashingtonRirpslwefy43-89-0442 History of Present illness Narrative* Jen Reagan DO - 01/16/2025 9:00 AM EDT Images from the original note were not included. Matteo Ontiveros Alyssaabiola presents today for Evaluation in regards to chronic bronchitis / cough. He was referred by his primary care provider. He is accompanied by his at today's office visit. He had previously been seen by tire shop manager many years ago for latent TB infection. [...] Administer 1 spray into each nostril Daily Azprnevuypf-Ywbmrcqkl-Lrxcfy (Trelegy Ellipta) 100-62.5-25 MCG/ACT aerosol powder Inhale [...] request of Phys. EHR Cmte Gas bloat syndrome 01/07/2025 Gastroesophageal reflux disease [...] COPD. Jen Reagan DO documented in this encounterMercy Hospital WashingtonTwmbpcxwcz13-18-7748 Evaluation note* Diagnosis Onset Date Resolution Status Admit Date Xerosis of skin acuteJune 2024 1:46pmIrritable bowel syndrome with constipationacuteJuly 2024 9:19am [facility] Work Phone: 1(906) 629-598106-03-2025 History of Present illness Narrative* Chelsy Toro MD - 12/25/2024 11:00 AM [...] limited to risks of scarring, darker or product coordinator pigmentary changes, recurrence, incomplete removal and infection. [...] Disease Next Visit: prn documented in this encounterMercy Hospital WashingtonRzkrqrvtum49-56-4530 Telephone encounter Note* Telephone Encounter - Jourdan Quinterodouglas - 12/18/2024 11:55 AM EDT Nm, this is Dub Negra Brewer, I am calling for my Matteo Brewer. date is 1959. He has an appointment at [facility] on january 16. To see Dr ray was supposed to have got a PFT in [place]. But apparently the machine's been broken. So they were to have transferred everything over to [facility] so he could have it done and I just talked to [place], they have not received any of that. So I do not know if your office needs to do it or I need to call back to the clinicthat does the pulmonary function testing and dusk and have them Redo it, but like to see if we can get him set up in [facility] to have a pulmonary function test before he sees Dr. Ray appreciate if you could call me back at [phone], thank you. [facility] Hospital WashingtonQxttxhrokg20-93-3591 Miscellaneous Notes* Telephone Encounter - Jourdan Quinterodouglas - 12/18/2024 11:55 AM EDT Nm, this is Chun Brewer, I am calling for my Matteo Brewer. date is 1959. He has an appointment at the [facility] on january 16. To see Dr ray was supposed to have got a PFT in [place]. But apparently the machine's been broken. So they were to have transferred everything over to [facility] so he could have it done and I just talked to [facility] [place], they have not received any of that. So I do not know if your office needs to do it or I need to call back to the clinicthat does the pulmonary function testing and dusk and have them Redo it, but like to see if we can get him set up in [facility] to have a pulmonary function test before he sees Dr. Ray appreciate if you could call me back at [phone], thank you. documented in this encounterMercy Hospital [id number] Chief complaint+Reason for visit Narrative* Chief Complaint Admit Date Referral Order November 09, 2024 1:[address] Toro January 07, 2025 1 :46pm Left sided abdominal pain January 29, 2025 9:19am Reason for Visit Admit Date Xerosis of skin January 07, 2025 1:46 pm Irritable bowel syndrome with constipati on January 29, 2025 9:19am [facility] Work Phone: 1(832) 326-288004-11-2025 History of Present illness Narrative* Sterling Cardona, [...] meal of the day documented in this encounterMercy Hospital [id number] Chief complaint+Reason for visit Narrative* Chief Complaint Admit Date groin pain October 17, 2024 3:3 8pm Referral Order November 09, 2024 1:1 1pm Reason for Visit Admit Date Acute diverticulitis October 17, 2024 3: 38pm Allergic rhinitis, seasonal October 17, 2024 3:38pm Irritable bowel syndrome with constipati on October 17, 2024 3:38pm [facility] Work Phone: 1(253) 313-183403-26-2025 Evaluation note* Diagnosis Onset Date Resolution Status Admit Date Acute diverticulitis acuteMarch 2024 3:38pmAllergic rhinitis, seasonalacuteMarch 2024 3:38pmIrritable bowel syndrome with constipationacute[facility] 20[facility] 3:38pm [facility] Work Phone: 1(825) 321-855601-21-2025 History of Present illness Narrative* Sulma Escobar, JARED-PARTITION MAKING MACHINE OPERATOR - 08/14/2024 10:10 AM EST Images from [...] Next Visit: 1 year documented in this encounterMercy Hospital [id number] Evaluation note* Diagnosis Onset Date Resolution Status Admit Date Hypertension acuteJanuary 2024 10:05amAcute bronchitis due to other specified organisms noneactiveJanuary 2024 10:05amAcute exacerbation of chronic obstructive airways diseasenoneactiveJanuary 2024 10:05amAcute diverticulitisacute October 17, 2024 3:38pmAllergic rhinitis, seasonalacuteMarch 2024 3:38pm Irritable bowel syndrome with constipationacuteMarch 2024 3:38pm [facility] Work Phone: 1(258) 103-668211-21-2024 Telephone encounter Note* Telephone Encounter - CONSTANCE Pedraza - 06/14/2024 10:24 AM EST Patient seen today in office. Would like to add Cipro 750mg BID x 10 days since I am questioning ifDoxycycline only cured one of the bacterial growths. Please check interactions [facility] [id number] Miscellaneous Notes* Telephone Encounter - CONSTANCE Pedraza - 06/14/2024 10:24 AM EST Patient seen today in office. Would like to add Cipro 750mg BID x 10 days since I am questioning ifDoxycycline only cured one of the bacterial growths. Please check interactions documented in this encounterMercy Hospital [id number] History of Present illness Narrative* CONSTANCE Pedraza [...] Next Visit: 1 month documented in this encounterMercy Hospital [id number] History of Present illness Narrative* CONSTANCE Pedraza [...] days 2. Actinic keratosis (4) Left Superior [place], Mid Lower [place] Lip (2), Right [place] Erythematous scaly papules. Patient was counseled regarding [...] limited to risks of scarring, darker or product coordinator pigmentary changes, recurrence, incomplete removal and infection. [...] tenderness Cryotherapy, skin lesion - Left Superior [place], Mid Lower [place] Lip (2), Right Superior [place] 3. Other atopic dermatitis Left Hand - Posterior Scaly erythematous plaques +/- dyspigmentation, lichenification, excoriations. Improved since last visit Continue Protopic as prescribed Next Visit: 2 weeks documented in this encounterMercy Hospital [id number] History of Present illness Narrative* CONSTANCE Pedraza [...] Next Visit: 2 weeks documented in this encounterMercy Hospital [id number] History of Present illness Narrative* CONSTANCE Pedraza [...] other nonspecific skin eruption Left Dorsal Hand [place] patches and plaques Vikor tissue culture [...] Visit: 10 days S/R documented in this encounterMercy Hospital WashingtonZtswvnwmuu07-28-0839 History and physical note Author Axel Briggs [facility] November 28, 2023 10:09amNote Date/TimeMay 2023 10:10am[place] [address] Gastroenterology H&P Signed Patient: Matteo Hardy MR#: [id number] : 1960 Acct:[id number] Age/Sex: 63 / M Adm Date: 4 Loc: Room: Type: [facility] Attending Dr: Axel Briggs MD Copies [...] Briggs MD Documented By: Axel Briggs MD 11/28/231008 Signed By: <Electronically signed by Axel Briggs MD> 11/28/23 1009 [facility] Work Phone: 1(130) 654-224405-06-2024 [facility] Evaluation note* Encounter Date Diagnosis [...] NS for congestion, Tylenol forpain and fever. [employer] Other 02-01-2024 Evaluation note* Encounter Date Diagnosis Assessment Notes Treatment Notes Treatment Clinical Notes Aug, Acute non-recurrent maxillary si nusitis (ICD-10 - J01.00) Instructed to use Robitussin or Mucinex for cough, saline or Flonase NS for congestion, Tylenol forpain and fever. Aug,Irritable bowel syndrome with constipation (ICD-10 - K58.1)Increase dietary fiber and fluids [employer] Other 10-23-2023 Evaluation note* Encounter Date Diagnosis [...] 2 to 3 weeks after beginning it. [employer] Other 10-20-2023 Evaluation note* Encounter Date Diagnosis [...] index [BMI] 36.0-36.9, adult (ICD-10 - Z68.36) [employer] Other 09-27-2023 Evaluation note* Encounter Date Diagnosis Assessment Notes Treatment Notes Treatment Clinical Notes Mar, Mucopurulent chronic bronchitis (ICD-10 - J41.1) [employer] Other 09-07-2023 Evaluation note* Encounter Date Diagnosis Assessment Notes Treatment Notes Treatment Clinical Notes Mar, Dyspnea on exertion (ICD-10 - R0 6.09) Mar,Tobacco dependence (ICD-10 - F17.200) Mar,ost COVID-19 condition, unspecified (ICD-10 - U09.9) [employer] Other 07-05-2023 Evaluation note* Encounter Date Diagnosis Assessment Notes Treatment Notes Treatment Clinical Notes Jan, Wellness examination (ICD-10 - Z 00.00) [employer] Other 05-08-2023 Evaluation note* Encounter Date Diagnosis Assessment Notes Treatment Notes Treatment Clinical Notes November, GERD (gastroesophageal reflux di sease) (ICD-10 - K21.9) Diet instructions: Smaller portions, avoid eating and laying flat, avoid eating or drinking prior to bedtime. Weight loss. 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 Weight loss. 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 Treatment would be diet, hydration and azithromycin Sep,KI (acute kidney injury) (ICD-10 - N17.9)Hydrate, avoid NSAIDs Sep,ehydration (ICD-10 - E86.0)Hydrate [employer] Other 03-06-2023 Evaluation note* Encounter Date Diagnosis Assessment Notes Treatment Notes Treatment Clinical Notes Sep, Diarrhea, unspecified type (ICD- 10 - R19.7) [employer] Other 03-03-2023 Evaluation note* Encounter Date Diagnosis Assessment Notes Treatment Notes Treatment Clinical Notes Sep, Diarrhea of presumed infectious origin (ICD-10 - R19.7) Diet instructions reviewed. _update on Tuesdaybdominal cramping (ICD-10 - R10.9)Continue Dicyclomine. ER for increased pain, N/V/D [employer] Other 02-13-2023 Evaluation note* Encounter Date Diagnosis [...] to respiratory infections, vascular disease and cancers. [employer] Other 11-03-2022 Evaluation note* Encounter Date Diagnosis Assessment Notes Treatment Notes Treatment Clinical Notes May, Bloating (ICD-10 - R14.0) [employer] Other 10-31-2022 Evaluation note* Encounter Date Diagnosis Assessment Notes Treatment Notes Treatment Clinical Notes Apr, Enteritis (ICD-10 - K52.9) Apr,bdominal pain (ICD-10 - R10.9) [employer] Other 09-27-2022 Evaluation note* Encounter Date Diagnosis Assessment Notes Treatment Notes Treatment Clinical Notes Mar, Bloating (ICD-10 - R14.0) Mar,GERD (gastroesophageal reflux disease) (ICD-10 - K21.9)Increase Nexium to 40mg twice daily Mar,yspepsia (ICD-10 - K30) Mar,onstipation (ICD-10 - K59.00)Start Miralax powder daily. Titration dosing discussed with patient. Mar,hange in stool caliber (ICD-10 - R19.4) Mar,Left sided abdominal pain (ICD-10 - R10.9)Continue Dicyclomine prn [employer] Other 07-20-2022 Evaluation note* Encounter Date Diagnosis Assessment Notes Treatment Notes Treatment Clinical Notes Jan, Left sided abdominal pain (ICD-1 0 - R10.9) Jan,lternating constipation and diarrhea (ICD-10 - R19.8) [employer] Other 05-17-2022 History general Narrative - Reported* Type Description Date Medical History HYPERLIPIDEMIA Medical HistorySTOMACH PROBLEMS SINCE APPENDIX BURSTSurgical Historyappendectomy 1998Surgical Historybenign polpy removed from tongue and vocal cords12/08/2021 [employer] Other 05-17-2022 History general Narrative - Reported* Type Description Date Medical History HYPERLIPIDEMIA Medical HistorySTOMACH PROBLEMS SINCE APPENDIX BURSTSurgical Historyappendectomy 1998Surgical Historybenign polpy removed from tongue and vocal cords12/08/2021 Hospitalization HistorySEE SURGICAL HX [employer] Other 05-17-2022 History general Narrative - Reported* Type Description Date Medical History HYPERLIPIDEMIA Medical HistorySTOMACH PROBLEMS SINCE APPENDIX BURSTMedical History diverticulitisSurgical Inoadujdchvdmhccjrr0345Cyyswjqg Historybenign polpy removed from tongue and vocal cords12/08/2021Hospitalization HistorySEE SURGICAL [employer] Other 05-17-2022 History general Narrative - Reported* Type Description Date Medical History HYPERLIPIDEMIA Medical HistorySTOMACH PROBLEMS SINCE APPENDIX BURSTMedical History diverticulitisSurgical Ndtfmvypbzucbrcpijy6177Kmtcbwlq Historybenign polpy removed from tongue and vocal cords12/08/2021urgical Historycyst removed from back of tongueHospitalization HistorySEE SURGICAL [employer] Other Evaluation noteNo InformationNort [employer] Other Evaluation noteNo assessment information available [facility] Work Phone: Evaluation note* Diagnosis Rash and [...] Status Admit Date GERD (gastroesophageal reflux disease) [facility]Octcar[facility] 2024 10:33amIBS (irritable bowel syndrome)acuteOctober 2024 10:33amIrritable bowel syndrome with constipationacuteOctober 2024 10:33amObesityacuteOctober 2024 10:33amScreening PSA (prostate specific antigen)acuteOctober 2024 10:33amWellness examinationacuteOctcarroll county memorial hospital 2024 10:33am [facility] Work Phone: Hospital Discharge instructions Additional [...] years. -Follow up with PCP. -Office number [phone].[facility] Work Phone: Hospital Discharge instructionsAmbulatory Orders* Referral to Pulmonology Location: None Selected [facility] Work Phone: Reason for referral (narrative)No reason for referral information availableWvumedicine [facility] Work Phone: Redrwq for visit Narrative* Consultation (Routine) - ClosedSpecialtyDiagnoses / ProceduresReferred By ContactReferred To Contact Pulmonary Disease / Pulmonology Diagnoses Unspecified chronic bronchitis (HCC) Chronic cough Procedures [place] UNLISTED EVALUATION AND MANAGEMENT SERVICE [facility] [address] [place] [address] Jen Reagan, DO [address] [facility] [place] [address] Phone: tel: fax: Referral IDStatusReasonStart DateExpiration DateVisits RequestedVisits [id number]// [facility] Healthcare Summary Purpose Family History Relationship Condition Age at Onset Recorded Date/T nash Not Specified Colorectal cancer Unknown fatherLeukemiaUnknown Relationship Condition Age at Onset Recorded Date/T nash mother Colorectal cancer Unknown fatherLeukemiaUnknown Advance Directives Advance Directive Response Recorded Date/ Time Advance Directives No May 29, 2021 11:21am Advance Directive Response Recorded Date/ Time Advance Directives No May 29, 2021 10:21am Chief Complaint and Reason for Visit Chief [...] 10:33am Wellness examination May 07, 2025 10:33am Chief Complaint Admit Date Wellness May 07, 2025 1 0:33am 1 Wk F/u for Gout Meds May 28 9:46am Reason for Visit Admit Date Hypercholesteremia May 07, 2025 1 0:33am Hypertension May 07, 2025 1 0:33am Irritable bowel syndrome with constipati on May 07, 2025 10:33am Nicotine addiction May 07, 2025 1 0:33am Obesity May 07, 2025 1 0:33am Screening PSA (prostate specific antigen ) May 07, 2025 10:33am Wellness examination May 07, 2025 10:33am At high risk for cardiovascular disease May 07, 2025 10:33am Suspected sleep apnea May 07, 2025 10:33am Additional Source Comments (unrecognized sect ion and content) No Status Records FoundNo Status Records FoundNo Status Records FoundNo Status Records Found INFORMATION SOURCE (unrecogn ized section and content) DATE CREATED AUTHOR 02/12/2022 [facility] DATE CREATED AUTHOR AUTHOR'S ORGANIZ ATION 10/01/2022 [facility] DATE CREATED AUTHOR AUTHOR'S ORGANIZ ATION 12/04/2023 [facility] DATE CREATED AUTHOR AUTHOR'S ORGANIZ ATION 01/17/2025 [facility] EPIC REASON FOR [...] May 07, 2025 End: May 07ensteven Wheatley DOAttnadia ProviderActiveStart: May 07, 2025 End: May 07, 2025 Team Status: Active Member Role Status Dates Mark Wheatley DO Primary Care Provider Active Start: November 09, 2024 El Denis ProviderActiveStart: November 09, 2024 Team Status: Active Member Role Status Dates Mark Wheatley DO Primary Care Provider Active Start: December 31, 2024 Outside ProviderAttending ProviderActiveStart: December 31, 2024 Team Status: Inactive Member Role Status Dates Mark Wheatley DO Primary Care Provider Active Start: January 07, 2025 End: January 07, 2025MicAlex Reynolds ProviderActiveStart: January 07, 2025 End: January 07, [...] DateEnd Date Mark Wheatley MD [address] [place] [phone] PCP - GeneralInternal Medicine11/29/22am MemberRelationshipSpecialtyStart Date End Date Mark Wheatley MD [address] [facility] [place] [address] PCP - GeneralInternal Medicine11/29/22am MemberRelationshipSpecialtyStart Date End Date Mark Wheatley MD [address] [facility] [place] [address] PCP - GeneralInternal Medicine11/29/22am MemberRelationshipSpecialtyStart Date End Date Mark Wheatley MD [address] [facility] [place] [address] PCP - GeneralInternal Medicine11/29/22am MemberRelationshipSpecialtyStart Date End Date Mark Wheatley MD [address] [facility] [place] [address] PCP - GeneralInternal Medicine11/29/22am MemberRelationshipSpecialtyStart Date End Date Mark Wheatley MD [address] [facility] [place] [address] PCP - GeneralInternal Medicine11/29/22am MemberRelationshipSpecialtyStart Date End Date Mark Wheatley MD [address] [facility] [place] [address] PCP - GeneralInternal Medicine11/29/22am MemberRelationshipSpecialtyStart Date End Date Mark Wheatley MD [address] [facility] [place] [address] PCP - GeneralInternal Medicine11/29/22Team MemberRelationshipSpecialtyStart Date End Date Mark Wheatley MD [address] [place] [phone] PCP - GeneralInternal [facility]11/29/22Team MemberRelationshipSpecialtyStart Date End Date Mark Wheatley MD [address] [place] [address] PCP - GeneralInternal Medicine11/29/22 Team Status: Inactive Member Role Status Dates Mark Wheatley DO Primary Care Provide r, Attending Provider Active Start: August 09, 2024 End: August 09, 2024 Team Status: Inactive Member Role Status Dates Mark Wheatley DO Primary Care Provide r, Attending Provider Active Start: October 17, 2024 End: October 17, 2024Team MemberRelationshipSpecialtyStart DateEnd Date Mark Wheatley MD [address] [place] [address] PCP - GeneralEn[facility] Health [facility] Scottsdalenal Medicine11/29/22Team MemberRelationshipSpecialtyStart Date End Date Mark Wheatley MD PCP - GeneralInternal Medicine11/29/22 Team Status: Active Member Role Status Dates Mark Wheatley DO Primary Care Provide r, Attending Provider Active Start: October 25, 2024 Team Status: Active Member Role Status Dates Mark Wheatley DO Primary Care Provide r, Attending Provider Active Start: November 09, 2024 Team MemberRelationshipSpecialtyStart DateEnd Date Mark Wheatley DO [address] [place] [address] PCP - GeneralInternal Medicine11/15/24Team MemberRelationshipSpecialtyStart Date End Date Mark Wheatley DO [address] [facility] [place] [address] PCP - GeneralEncompass Health Rehabilitation Hospital Of Scottsdalenal [facility]11/15/24Team MemberRelationshipSpecialtyStart Date End Date Mark Wheatley DO [address] [facility] [place] [address] PCP - GeneralEncompass Health Rehabilitation [facility] Scottsdalenal [facility]11/15/24Team MemberRelationshipSpecialtyStart Date End Date Mark Wheatley DO [address] [facility] [place] [phone] PCP - GeneralInternal Medicine11/15/24Team MemberRelationshipSpecialtyStart Date End Date Mark Wheatley DO [address] [facility] [place] [address] PCP - GeneralEncompass Health Rehabilitation Hospital Of Scottsdalenal Medicine11/15/24 Team Status: Active Member Role/Relationship Status Dates Mark Wheatley DO Primary Care Provider Active Team Status: Inactive Member Role/Relationship Status Dates Mark Wheatley DO Primary Care Provider Active Start: May 07, 2025 End: May 07El Nugent ProviderActiveStart: May 07, 2025 End: May 07, 2025 Team Status: Inactive Member Role/Relationship Status Dates Mark Wheatley DO Primary Care Provider Active Start: May 28, 2025 End: May 28El Nugent ProviderActiveStart: May 28, 2025 End: May 28, 2025 Goals (unrecognized section and content) Goals [...] BE BASED ON THE PRIMARY CLINICAL RECORDS. [employer]ubrikar Aortic Valve [facility]. provides no warranty or guarantee of the accuracy or completeness of information in this document.
--- NOTE | 2025-06-18 15:48 | XR_ITS ---
[facility] [place] [id number] Patient Name: ALLYSON FARMER MRN: [id number] date: 1960 Sex: M Assigned Patient Location: [facility] Current Patient Location: [facility] Accession/Order Number: [id number] Exam Date: 06/18/2025 16:00 Report Date: 06/18/2025 20:47 At the request of: TOBIN WHEATLEY DO Procedure: XR chest 2V PA AND LATERAL CHEST: CLINICAL HISTORY: Cough, Fatigue, chronic Bronchitis COMPARISON: CT chest 10/25/2024 FINDINGS: Unremarkable cardiomediastinal silhouette. Lungs are clear. No effusion or pneumothorax. XR/XR chest 2V IMPRESSION: NO ACUTE CARDIOPULMONARY ABNORMALITY. Impression dictated by: Syed Pelaez M.D. 06/18/2025 8:47 PM Dictation Location: [place] [address] Electronically authenticated by: [id number] Date: 06/18/2025 20:47
== END 2025-06-18 15:27 | disposition home or self-care (01) ==
LOC: RAD 15:28
PROVIDERS: PCP Internal Medicine; Visit Provider Internal Medicine
DX: J42 Unspecified chronic bronchitis (principal); R05.9 Cough, unspecified; R53.83 Other fatigue
CPT/HCPCS: 71046

== ENCOUNTER 2025-07-03 09:18 | Outpatient (OUT) | payer BC, SELFPAY ==
--- OUTSIDE RECORDS SUMMARY | 2025-07-01 07:07 | XMS_ITS | Continuity of Care Document ---
Author Organization [facility] Address [address] [place] [address] Phone Care Team Providers Care Receiver Setter Name Role Phone Abdelrahman Mark GLEASON Primary Care Provider Mark Quick DO Attending Provider [phone] Rosa Jha DO Attending Provider Care Teams Patient Care Team Team Status: Active Member Role/Relationship Status Dates Mark Quick DO Primary Care Provider Active Visit Care Team Team Status: Inactive Member Role/Relationship Status Dates Mark Quick DO Primary Care Provider Active Start: May 07, 2025 End: May 07[place] ProviderActiveStart: May 07, 2025 End: May 07, 2025 Visit Care Team Team Status: Inactive Member Role/Relationship Status Dates Mark Quick DO Primary Care Provider Active Start: May 28, 2025 End: May 28[place] ProviderActiveStart: May 28, 2025 End: May 28, 2025 Visit Care Team Team Status: Active Member Role/Relationship Status Dates Mark Quick DO Primary Care Provider Active Start: May 28, 2025 [place] ProviderActiveStart: May 28, 2025 Patient Care Team Team Status: Inactive Member Role/Relationship Status Dates Mark Ball , DO Primary Care Provider Active Start: July 01, 2025 End: July 01woo Quick DOAttending ProviderActiveStart: July 01, 2025 End: July 01, 2025 Chief Complaint and Reason for Visit Chief Complaint Admit Date Wellness May 07, 2025 1 0:33am 1 Wk F/u for Gout Meds May 28 9:46am discuss meds July 01, 2025 1 1:26am Reason for Visit Admit Date Hypercholesteremia May [...] Suspected sleep apnea May 07, 2025 10:33am Acute gout May 28, 2025 9 :46am Allergic rhinitis May 28, 2025 9 :46am HARVEY (obstructive sleep apnea) May 282024 9:46am Left hip pain July 01, 2025 1 1:26am Allergies, Adverse Reactions, Alerts Allergen Type Severity Reaction Last Updated Verified Status Comments cephalexin Allergy Unknown Rash July 01, 2025 11:35am Yes Active moxifloxacinAllergyUnknownitchingDecember 2024 11:35amYesActiveSingulair *ANTIASTHMATIC AND BAllergyUnknownUnknown ReactionMay 2023 11:25amNoActive Free Text Allergy: Singulair *ANTIASTHMATIC AND BRONCHODILATOR [...] Colorectal cancer Unknown fatherLeukemiaUnknown Problems Active Problems Problem Diagnosis/Recorded Date Onset Date Status C omments Nicotine addiction Sajan 13th, 2024 5:56pm Unknown A ctive HARVEY (obstructive sleep apnea)May 20, 2025 7:34pmUnknownActiveAHI - 33, SpO2 - 78%Screening PSA (prostate specific antigen)2024 7:10am UnknownActivePSA: 0.21 - 10Gas bloat syndromeJune 2023 12:29pmUnknown ActiveChronic coughApril 2024 12:12pmUnknownActiveDyspepsiaAugust 2024 7:52amUnknownActiveAcute diverticulitisMarch 2024 3:41pmUnknownActive Wellness examinationSeptember 2023 7:11amUnknownActiveHypercholesteremia June 02, 2021 2:08pmUnknownActiveHypoxiaDecember 2023 5:54pmUnknown ActiveMultifocal pneumoniaDecember 2023 7:39amUnknownActiveLeft hip pain July 01, 2025 12:01pmUnknownActiveAcute goutNovember 2024 10:56am UnknownActiveGERD (gastroesophageal reflux disease)June 02, 2021 2:08pm UnknownActiveXerosis of skinJune 2024 3:09pmUnknownActiveAllergic rhinitis May 28, 2025 10:56amUnknownActiveIrritable bowel syndrome with constipationApril 2023 3:22pmUnknownActiveChronic bronchitisDecember 2023 5:58pmUnknownActiveAllergic rhinitis, seasonalMarch 2024 3:41pm UnknownActiveHypertensionJanuary 2024 11:01amUnknownActiveStress Test NM: LVEF 62%, no reversible defect, no TID - 04/2025IBS (irritable bowel syndrome) April 23, 2025 6:43amUnknownActiveObesityOctober 2024 10:40amUnknown ActiveInactive/Resolved Problems Problem Diagnosis/Recorded Date Onset Date Status C omments Family history of colon cancer in mother June 03, 2021 9:40am Unknown Resolved Probl em List clean-up per request of Phys. EHR Cmte Medications Medication Status Dose Units Route Directions Qty Days Refills S tart Date Stop Date End Date Reason(s) Instructions Adherence Fluticasone Propion-Salmeterol (Wixela Inhub) 250-50 mcg/dose blister with device Discontinued 1 INH INHALATION Every 12 hours 60 30 11 September 16, 2023 12:00am December 12, 2023 12:27pmSod Picosulf-Mag Ox-Citric Ac (Clenpiq) 10 mg-3.5 gram- 12 gram/175 mL icczwzmfRvkzehfwppab348ZNDIQfygx317Yndzk 2023 11:00pmJune 2023 12:25pmplease follow instructions provided by Dr. Briggs's office. Polyethylene Glycol 3350 (Miralax) 17 gram/dose ukmwzdZfeuvlyvyzhc97ZYYAZbutu times xeizj49221912Okkuj 2023 11:00pmMay 2023 11:29amTake 17 grams in liquid three times a day for constipationTamsulosin 0.4 mg capsuleDiscontinued0 .ROUTE.UCARKQD348Mrl 2023 12:05pmAugust 2023 12:32pmTAKE 1 CAPSULE BY MOUTH 30 MINUTES AFTER EVENING MEAL EVERY NIGHTFluticasone Propion-Salmeterol (Wixela Inhub) 250-50 mcg/dose blister with deviceDiscontinued0.ROUTE.TDSGPYZ562 2023 12:24pmFebruary 2024 1:12pmINHALE 1 PUFF INTO THE LUNGS TWICE A DAY FOR 30 DAYSLinaclotide (Linzess) 145 mcg qrnwkaaMjzuglrvhlrn160NGDDR Lyvez953572Xmky 2023 11:00pmJuly 2023 7:51amTamsulosin 0.4 mg capsule Discontinued0.ROUTE.EQKISLD439Ybgtcy 2023 12:32pmSeptember 2024 9:22amTAKE 1 CAPSULE BY MOUTH 30 MINUTES AFTER EVENING MEAL EVERY NIGHT Lisinopril-Hydrochlorothiazide 10-12.5 mg bxpxveUgkwzfdjhpqv0FFUGKLfrgc62098 August 06, 2024 1:07pmJanuary 2024 12:43pmLisinopril- Hydrochlorothiazide 10-12.5 mg njidixOptzvinayjnq6FYNVSMnqpr89904Kicndec 2024 12:43pmJanuary 2024 12:44pmLisinopril-Hydrochlorothiazide 20-25 mg jtfzwlDssjvdoboxao3BMDPDFhhli02041Dghkovk 2024 12:00amJanuary 2024 10:16amLisinopril-Hydrochlorothiazide 10-12.5 mg watxaySmkapbugalpm3MJXGNBgfic58 902January 2024 12:43pmJanuary 2024 12:44pmTelmisartan- Hydrochlorothiazid 40-12.5 mg truwlsQdgpvrgixagy8HGXWXYhcef24768Yshcpsg 2024 12:00amMay 2024 6:40amEsomeprazole Magnesium 40 mg capsule,delayed release(DR/EC)Active0.ROUTE.PSPOVEO0449Siqtwoz2024 7:07amTAKE 1 CAPSULE BY MOUTH TWICE A DAY ON AN EMPTY STOMACH FOLLOWED IN 30 MINUTES BY FOOD 90 Complies with drug therapyDoxycycline Hyclate 100 mg dhfhoblFuzvnxchbusa816NPRW Twice icucc8365Mkpwwshm 2024 12:00amFebruary 2024 5:27pmDoxycycline Hyclate 100 mg vmxdimoZpdmhahfddke254QMGXFijzs rjnhq1820Ezjbcvnd 2024 5:27pmJune 2024 12:57pmFluticasone Propion-Salmeterol 250-50 mcg/dose blister with deviceDiscontinued0.ROUTE.BAKLHBB4483Yiqxhfcd 2024 1:12pmJune 2024 11:31amINHALE 1 PUFF INTO THE LUNGS TWICE A DAYTelmisartan- Hydrochlorothiazid 40-12.5 mg tabletDiscontinued0.ROUTE.WRJEJVN798Gtn 2024 6:40amNovember 2024 7:25amTAKE 1 TABLET BY MOUTH EVERY DAY Dgywlvupafj-Rpavpgpvl-Ybjadqgp (Trelegy Ellipta) 200-62.5-25 mcg blister with gfafymDvdugkhkuxtc7JGUAXQUWQCTQVSitum17952Ttfi 2024 11:00pmOctober 2024 9:54amLubiprostone (Amitiza) 8 mcg gfbemnbJunltvicghyl4MOWNZVotyk431984Csdd 2024 11:00pmAugust 2024 2:22pmLubiprostone (Amitiza) 8 mcg capsule Bcquzp5FEGMENyoiv88237Amxfrm 2024 2:22pmComplies with drug therapy Tamsulosin 0.4 mg capsuleActive0.4MGPODaily at yvvarmd39703Dugewfyug 2024 9:21amComplies with drug therapyPrednisone 20 mg zvpsmbBjynehlnmbby71LQVJ .IPMBHJS22849Ipevwhb 2024 11:00pmNovember 2024 11:00am20 mg: take 1 tab PO bid w/ food x 5 days, then qd w/ food x 5 daysAzithromycin 250 mg tablet Prcboxkfhlkk041VUUQ.QVMTIYU187Yuyihcl 2024 11:00pmDeceer 2024 11:58am2 tabs on first day followed by 1 tab on days 2-5Telmisartan- Hydrochlorothiazid 40-12.5 mg zhnnyyItwsik7XWKTDNqfqg37549Mgqeacqz 2024 7:25amComplies with drug therapyDoxycycline Hyclate 100 mg ivrpnzaJklbiw289IMWN Twice altkf3649Pnesjfqn 20th, 2025 12:00amComplies with drug therapyTamsulosin 0.4 mg capsuleDiscontinued0.4MGPODailyMay 2023 11:00pmMay 2023 12:05pmPolyethylene Glycol 3350 (Miralax) 17 gram/dose qedtdnQfgcztfrkasf80AWLO Twice dailyMay 2023 11:00pmJuly 2023 7:51amTake 17 grams in liquid three times a day for constipationAscorbic Acid (Vitamin C) (Vitamin C) 1,000 mg MgimozVlefsw8AEHACbzgnMtxvphuz 2020 12:00amComplies with drug therapy Loperamide 2 mg CoybsnuUkvczogjsnyl5VSHIMxifq as needed for loose stoolNov2020 12:00amJune 2023 12:24pmOmeprazole 40 mg Capsule,Delayed Release(Dr/Ec)Wixxqtvchtkz71FQXFRzmynHbcurubv 2020 12:00amDecebanner baywood medical center 2023 8:12amMontelukast 10 mg npeblxFsoldsoixbpn56JRHVBbaysZkxljrpv 2020 12:00amMa2023 11:27amZinc 50 mg DpnrbjIctmepkxrnbr76PFXZKsvzrBmyzoebr 2020 12:002023 11:28amAlbuterol 90 mcg/actuation Aerosol Jmnzoviufdav61IEOWOHNZZPJRGRhopy dailyBourbon [facility] 2020 12:002023 12:24pmRosuvastatin 20 mg IxhxfsVgmujnkumuyg39VBEK.every other dayBourbon Community Hospital 2020 12:00am[facility]20[facility] 12:25pmCoenzyme Q10 (Co Q-10) 200 mg Capsule Shokjtonmngl820TZWYGwyjoZbjsokom 2020 12:002023 12:24pm Cholecalciferol (Vitamin D3) (Vitamin D3) 25 mcg (1,000 unit) BbzsbrYsfvwr75LWY PODailyNnorthwest medical center 2020 12:00amComplies with drug therapyIbuprofen- Diphenhydramine Cit (Advil Pm) 200-38 mg LbykwaCkwdhjlhmvtw6JXDPHBsocu at bedtime as needed for sleepBourbon Community Hospital 2020 12:002023 12:24pm Aspirin 81 mg AkpyaphDfhwea42JXNGApshcRvnajlya 2020 12:00amComplies with drug therapyCetirizine-Pseudoephedrine 5-120 mg tablet extended release 12 hr Esaxbe7SMVYBQnrfeCazl 2023 11:00pmFreeTextSi tablet as needed Orally Once a day; Note: Source Status: Taking; Refills: 5; Provider: Abdelrahman Agee Complies with drug therapyPlecanatide (Trulance) 3 mg ddbafyJwdeysdopbxc1AGME Yytes64404Vwfc2023 11:00pmJuly 2023 10:43amCiprofloxacin Hcl 500 mg ipoxzyKwxmvfesyekc978RJPROehuz ekytp56111Uana2023 11:00pmJuly 2023 7:50amFluticasone Propion-Salmeterol (Advair Diskus) 250-50 mcg/dose blister with lpaglyTqwecukpjini6ERBBRRRKJVVWZBrrsy dailyMay 2023 11:00pmJun2023 12:24pmDoxycycline Hyclate 100 mg cpdyqzrEnclhlzfngzs835UTUMPnltd obylc8950 June 26, 2024 12:00amJuly 05, 2024 8:15amAmoxicillin-Pot Clavulanate 875-125 mg rkodnxAjctscrbcryb4BCSNXFyyjp 12 fybjp3054Dgfkmhy2024 12:00am October 17, 2024 3:28pmPrednisone 20 mg mvoqbuMyolopferyeg23ZHAKAn Tsfyzjcx454 August 09, 2024 12:00amJun2024 12:57pm1 tab tid w/ food x 3 days, then bid w/ food x 3 days, then qd w/ food x 3 daysAmoxicillin-Pot Clavulanate 875-125 mg qrxtbeFiskyqkmcxor5IPCMRVssgf 12 gvgfa4105Qgdap 2024 3:28pmJun2024 12:71dxEkdmxahemr-Ibadlfly-Dlmrzjmozw (Breztri Aerosphere) 160-9-4.8 mcg/actuation HFA aerosol inhalerActiveINHALATIONMclaren Bay Region 2024 11:00pm Complies with drug therapyEzetimibe 10 mg iyandfYssvpx12VUNAJoebc11260Eqcbsgw 13th, 2025 11:00pmComplies with drug therapyPhentermine (Adipex-P) 37.5 mg dgqctkHxeefovopqcs35.1MBKEXqwci39022Zoydbbc 2024 11:00pmDece2024 12:02pmObesity Obesity, class 2 Body mass index [BMI] 35.0-35.9, adultmust administer 30 minutes before or 1-2 hours after breakfastPrednisone 20 mg rljkvoMqxwlq05AUIYCsrux868Zyrmrpzx 2024 11:00amComplies with drug therapyLubiprostone (Amitiza) 8 mcg capsule Uslbzvdspzol5NNLSSXonrx uaizr43545Zfjo 2023 11:00pmOctober 2023 12:59pmCiprofloxacin Hcl (Cipro) 500 mg tfsvmtNxrjxgvsumir896GPGDBvunz iquhv9418 0September 2023 11:00pmDecember 2023 8:16amEsomeprazole Magnesium 40 mg capsule,delayed release(DR/EC)Muouetccxxkf28IJYFWdiqdXwlxwyic 2023 12:00amJanuary 2024 7:07amAlbuterol Sulfate 2.5 mg /3 mL (0.083 %) solution for nebulizationDiscontinued1.25MGINHALATIONEvery 4 hours as needed July 05, 2024 12:00amJune 2024 12:58pmAlbuterol Sulfate 90 mcg/actuation HFA aerosol fpomiikSgzpfb3KHPHPFSTSFHYQLI5T as neededJuly 05, 2024 12:00amComplies with drug therapyPrednisone 10 mg tabletDiscontinued 20MGPODailyDece2023 12:00amJanuary 2024 10:58amLisinopril- Hydrochlorothiazide 10-12.5 mg bswlypYsbuvkaumngd8DRRCSYpvhzWgheivkb 2023 12:00amJanuary 2024 1:07pmBenzonatate 200 mg zazykdmUumtwwuaolfg676VWXF Three times uqjhq96330Zmkolgzi 13th, 2024 12:00amJune 2024 12:58pm Lactobacillus Rhamnosus Gg (Probiotic Digestive Care) 20 billion cell capsule ActiveCELLPOJune 2024 11:00pmComplies with drug therapyPolyethylene Glycol 3350 (Miralax) 17 gram powder in rnerksFpxula65RTNIZkiegYzbi 2024 11:00pm Complies with drug therapyPlecanatide (Trulance) 3 mg xndwyzBmbfxfnwstlx6MBNB DailyJune 2024 11:00pmJuly 2024 8:31amLubiprostone 8 mcg capsule Nbxvrsalkjrg9KRVLCDmiiuWzer 2024 11:00pmJuly 2024 8:48amLubiprostone 24 mcg keijyxeBlgpgr74VMEVBLhsxl692376Qvit 2024 11:00pmComplies with drug therapyAzithromycin 250 mg vklbqjMvuhkb662XDHY.BDXASBI557Lucudqbn 2024 11:58am2 tabs on first day followed by 1 tab on days 2-5Complies with drug therapyPhentermine (Adipex-P) 37.5 mg utczfsBcphnp56.8XQSUFdplm63769Bidhuoze 2024 12:02pmObesity Obesity, class 2 Body mass index [BMI] 35.0-35.9, adultmust administer 30 minutes before or 1-2 hours after breakfastComplies with drug therapy Immunizations Immunization Event Date Not Given Reason Dose Number Spinning Mule Tender Lot Number Reason(s) Given Vaccine Information Statement (VIS) Detail Administration Location COVID-19 mRNA Commeghann ([employer]) October 02 COVID-19 mRNA Commeghann ([employer]ix)October 23neumococcal Conjugate Vaccine, valentMclaren [facility] Region [id number] [facility] Vital Signs Vital Reading Result Reference Range Collection Date/Time Height 73 [in_i] May 07, 2025 9:82hvWastzi920.15 kgOctlexington [facility] 2024 9:55amHeart Rate79 /igm57-220Mxikftc 2024 9:55amRespiratory rate12 /exl04-40Mziiulh 2024 9:55amBP Woftcdab980 mm[Hg]100-140Octlexington va medical center 2024 9:55amBP Aervdgwkv56 mm[Hg]60-100Octlexington va medical center 2024 9:55amBMI (Body Mass Index)35.8 kg/e3Uwqxnsa 2024 9:57rbGlgxfg42 [in_i]May 28, 2025 10:64dfHcntju762.22 kg May 28, 2025 10:41amHeart Rate82 /heh82-336Uuchqimm 4th, 2025 10:41am Respiratory rate12 /nib37-46Eacdoupy 4th, 2025 10:41amBP Udeothmu279 mm[Hg] 100-140Nov2024 10:41amBP Tadkixhlk99 mm[Hg]60-100Nov2024 10:41amBMI (Body Mass Index)35.2 kg/k2Pjlpttgf2024 10:65vxTcobhe46 [in_i] July 01, 2025 11:22exDzzmjm380.50 kgce2024 11:37amHeart Rate83 /xtb90-967PgywfkqrJuly 01, 2025 11:37amRespiratory rate12 /kvv16-46HlhuxsdwJuly 01, 2025 11:37amBP Znyxxlwx205 mm[Hg]100-140Dece2024 11:37amBP Jmizynmef21 mm[Hg]60-100Dece2024 11:37amBMI (Body Mass Index)34.4 kg/i3WwiyymkbJuly 01, 2025 11:37am Advance Directives Advance Directive Response Recorded Date/ Time Advance Directives No May 29, 2021 10:21am Insurance Providers Guarantor Matteo Hardy Address [address] [place] [id number] Info.Home Phone: Payer Group Member ID Coverage Type Subscriber Relationship to Subscriber Effective Date Expiration Date MMO Id: [id number] Encounters Encounter Location(s) Arrival/Admit Date Discharge/Departure Date Discharge/Departure Disposition Provider(s) Departed Physician/ Provider Office Visit -[facility] May 07, 2025 10:33am May 07, 2025 11:48am Discharged to home care or self care (routine discharge) Mark Quick DO Departed Physician/ Provider Office Visit -[facility] May 28, 2025 9:46am May 28, 2025 10:56am Discharged to home care or self care (routine discharge) Mark Quick DO Non-patient / Non-visit -[facility] Novem 2024 11:59pm Peggy Brownarted Physician/Provider [facility] 11:26amDe2024 12:05pmDischarged to home care or self care (routine discharge)Mark Quick DO Recent Diagnosis Onset Date Admit Date Hypercholesteremia Unknown May 07, 2025 10:33am Hypertension Unknown May 07 10:33am Irritable bowel syndrome with constipation Unkno wn May 07, 2025 10:33am Nicotine addiction Unknown May 07, 2025 10:33am Obesity Unknown May 07 10:33am Screening PSA (prostate specific antigen) Unknow n May 07, 2025 10:33am Wellness examination Unknown April 10:33am At high risk for cardiovascular disease Unknown May 07, 2025 10:33am Suspected sleep apnea Unknown May 072024 10:33am Acute gout Unknown May 28 9:46am Allergic rhinitis Unknown May 28, 2025 9:46am HARVEY (obstructive sleep apnea) Unknown No vember 2024 9:46am Left hip pain Unknown July 01 11:26am Assessments Diagnosis Onset Date Resolution Status Admit Date Hypercholesteremia acuteOctober 2024 10:33amHypertensionacuteOctober 2024 10:33am Irritable bowel syndrome with constipationacuteOctober 2024 10:33am Nicotine addictionacuteOctober 2024 10:33amObesityacuteOctober 2024 10:33amScreening PSA (prostate specific antigen)acuteOctober 2024 10:33am Wellness examinationacuteOctober 2024 10:33amAt high risk for cardiovascular diseasedeletedOctober 2024 10:33amSuspected sleep apnea deletedOctober 2024 10:33amAcute goutacuteNovember 2024 9:46am Allergic rhinitisacuteNovember 2024 9:46amOSA (obstructive sleep apnea) acuteNovember 2024 9:46amLeft hip painacuteDecember 2024 11:26am Plan of Treatment Author Mark Quick [facility] HospitalAuthoredOctober 2024 8:47pmI have instructed this patient on the recommended lifestyle changes, which includes a low fat, high fiber diet along with a regular exercise routine. I have also reviewed the recommended age-appropriate preventive testing for this patient. I have also reviewed the recommended vaccines for their age and risk factors. Instructed on high fiber diet. Trialed Amitiza 8mg qd w/ Miralax, which has resulted in some improvement in his symptoms I have recommended yearly PSA testing. I [...] is agreeable to this plan of action PSA: 0.21 - 04/2025 I have instructed this patient on a low-fat, high-fiber diet.?? I have also instructed them to reduce calories, portions sizes, sweet drinks and snacks.?? I have also recommended they exercise for 30 minutes, 3-5 times weekly. They are aware of the comorbid conditions associated with excessive weight: Diabetes, HTN, Hyperlipidemia, CAD and arthritis. Discussed initiating treatment. - GLP1 cost prohibitive - Adipex considered I have instructed this patient on a low fat, high fiber diet and exercise. I have discussed the primary and secondary prevention benefits attributed to lowering LDL cholesterol. I have also discussed the medical treatment of elevated cholesterol, which is based on the 10 year ASCVD risk. Intolerant to statins. Initiated Zetia This patient has been encouraged to quit tobacco use immediately. They are aware of the hazards associated with tobacco use, including but not limited to respiratory infections, vascular disease and cancers. Scheduled for yearly LDCT chest for lung cancer screening is recommended. LDCT w/o suspicious nodules: 11/2024 I have instructed this patient to consume a healthy, low-fat, low-salt diet. I have also encouraged them to continue exercise with weight loss to achieve/maintain a BMI < 30. I have instructed this patient on the correct procedure for obtaining home BP measurements:? - rest for 5 minutes w/o talking. - positioned w/ feet on floor and arms supported. - average best 2/3 readings w/ goal < 135/85. Update office w/ home readings in 2 weeks. Continue Telmisartan without interruption STOP BANG - 8 Recommend referral for home sleep study HTN, HLD, Tobacco use and obesity. C/O fatigue, dyspnea, diaphoresis and chest tightness w/ cough. Recommend stress testing to r/o coronary ischemia. Author Mark Quick [facility] HospitalAuthoredNovember 2024 10:59amInstructed to finish his Prednisone as directed. Instructed to avoid meat, shellfish and alcohol. If this was triggered by Cardiolite, he should not require any additional treatment. Reviewed triggers Continue Zyrtec and Flonase Instructed to hold Decongestant due to request for Adipex This patient is aware of the benefits associated with treatment of HARVEY. With continued use, the patient is reducing the risk for MO, CVA, HTN, cardiac dysrhythmias and sudden cardiac deaths. With continued use, the patient is also reducing morning headaches, daytime somnolence, fatigue and obesity. This patient is compliant with treatment, wearing the equipment every night for greater than 4 hours. This patient has been instructed to continue use of PAP for treatment of HARVEY. AHI 33 w/ Psat 78% Scheduled for clinic titration study Future Tests Future scheduled test information is unavailable Pending Tests Test Name Ordered Date Scheduled Date XR hip LT min 2V(w/wo pelvis)* July 01 12:01pm Future Visits Future appointment information is unavailable Future Procedures Procedure Name Ordered Date Scheduled Date STR cardiac stress/cardiol May 07, 2025 8: 32pm Future Medications Future medication information is unavailable Patient Instructions Patient instructions are unavailable
--- OUTSIDE RECORDS SUMMARY | 2025-07-03 09:25 | XMS_ITS | CCD ---
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 Name Role Phone Axel Briggs Unavailable Terra Connor Unavailable Mark Wheatley Unavailable DR MARK WHEATLEY Primary Care Unavailable MCMILLAN ., DR RENETTA Agee Attending Unavailable MCMILLAN ., DR RENETTA Agee Admitting Unavailable MCMILLAN ., DR RENETTA Agee Consulting Unavailable KATDANA CUENCA Consulting Unavailable SISTER, SU Consulting Unavailable [facility], DR DIXON Attending Unavailable ABDELRAHMAN, DR FLORES Primary Care Unavailable COALPORT, DR TERRA Landers Consulting Unavailable MISC, DR DIXON Admitting Unavailable AXEL BRIGGS Consulting Unavailable ABDELRAHMAN, DR FLORES Primary Care Unavailable DULCE, DR ESQUIVEL Attending Unavailable DULCE, DR ESQUIVEL Admitting Unavailable DULCE, DR ESQUIVEL Consulting Unavailable Mulugeta Bella Unavailable DO Mark Wheatley Primary Care Provider [phone] MD Axel Briggs Attending Provider Axel Briggs [...] Provider Unavailable Mulugeta Bella MD Attending Provider [phone] Aditya Baird APRN Attending Provider Abdelrahman GLEASON Mark Primary Care Provider Abdelrahman GLEASON Mark Attending Provider [phone] Abdelrahman Mark Primary Care Provider bAdelrahman GLEASON Mark Attending Provider [phone] Allergies Allergy ClassificationReported Allergen(s)Allergy TypeDate of OnsetReaction(s) Facility (20 sources)moxifloxacinDrug Ukjacsh79-12-2285XdbmcxuWipbelbfgWhite Hospital (20 sources)CephalexinDrug Hurmxoz59-71-3641NsdhNpbswtkihAccess [facility] (4 sources)Allergies ReconciledPropensity to adverse reactionsUniversity of Missouri Health Care [employer] Other (4 sources)patient allergy list reviewed by nurse or physiciaPropensity to adverse xjmkedzig56-55-5942Urmyajt:Stretchr Other (9 sources)Singulair *ANTIASTHMATIC AND BRONCHODILATOR AGENTSPropensity to adverse gvjgsbysd34-31-8450ZgyfhbsGeflk [place] [employer] Other (6 sources)Singulair *ANTIASTHMATIC AND BAllergy to tnuzapicg97-81-3813CxqinpfUniversity Hospitals Geneva Medical CenterComment on above:Free Text Allergy: Singulair *ANTIASTHMATIC AND BRONCHODILATOR AGENTS; Onset Date: 07/02/2021 (20 sources)PenicillinsPropensity to adverse sseidmaux31-77-4555NunfYHAW Healthcare (15 sources)CiprofloxacinDrug Aokudpw96-82-3347LkjseZGWP Healthcare (15 sources)levoFLOXacinDrug Ledncqx31-61-6635BfaaaioVLEE Healthcare (7 sources)montelukastDrug Tttrvnp38-14-7108AjlcjjuSLDN Healthcare Medications Current Medications MedicationDrug Class(es)DatesSig (Normalized)Sig (Original)[id number] 200 actuat albuterol 0.09 mg/actuat metered dose inhaler (20 sources)beta2-Adrenergic AgonistStart: 97-07-3936gavn 1 puff(s) by inhalation every four hours as neededStart: 07-05-2024 End: 23-16-1003kcff 1.25 mg by inhalation every four hours as neededAlbuterol Sulfate 2.5 mg /3 mL (0.083 %) solution for nebulization Discontinued 1.25 MG INHALATION Every 4 hours as needed July 05, 2024 12:00am January 07, 2025 12:58pmStart: 85-79-7885pjel 90 ug by inhalation twice dailyAlbuterol Active [...] 1000 mg oral tablet (20 sources)Vitamin CStart: 41-28-5705zuov 1 g by mouth once dailytake 1 tablet by mouth once dailyAscorbic Acid (Vitamin C) 500 MG capsule Take 1 tablet by mouth 1 (one) time each day Activetake 1 tablet by mouth every twenty-four hours Vitamin C 100 MG 1 tablet Orally Once a day ActiveVitamin C Activeaspirin 81 mg oral tablet (20 sources)Platelet Aggregation Inhibitor, Nonsteroidal Anti-inflammatory Drug Start: 75-19-3643gfzk 1 capsule by mouth once dailytake 1 tablet by mouth once dailyaspirin 81 MG EC tablet Take 1 tablet by mouth Daily ActiveAspirin 81 Activeazithromycin 250 mg oral tablet (1 source)Macrolide AntimicrobialStart: 48-17-7780qinqjqqr 20 mg oral tablet (20 sources)gamma-Aminobutyric Acid-ergic AgonistStart: 02-22-2022 End: 80-30-8000chyh 1 tablet by mouth twice daily as neededbaclofen (Lioresal) 20 MG tablet TAKE 1 TABLET BY MOUTH TWICE A DAY NEEDED FOR 30 DAYS 03/23/2022 Ourfve189 actuat budesonide 0.16 mg/actuat / formoterol fumarate 0.0048 mg/actuat / glycopyrrolate 0.009 mg/actuat metered dose inhaler (2 sources)Corticosteroid, beta2-Adrenergic AgonistStart: hr cetirizine hydrochloride 5 mg / pseudoephedrine hydrochloride 120 mg extended release oral tablet (20 sources)alpha-Adrenergic Agonist, Histamine-1 Receptor AntagonistStart: 66-58-4036kcfp 1 tablet by mouth once daily as neededStart: 97-55-3618ldyu 1 tablet by mouth once daily as neededCetirizine-Pseudoephedrine 5-120 mg tablet extended release 12 hr Active 1 TAB PO Daily January 16, 2024 12:00am FreeTextSi tablet as needed Orally Once a day; Note: Source Status: Taking; Refills: 5; Provider: Abdelrahman Flores EStart: 27-43-6719utyf 1 tablet by mouth every twenty-four hoursZyrTEC-D Allergy & Congestion 5-120 MG 1 tablet as needed Orally Once a day for 30 days Activecholecalciferol 0.025 mg oral tablet (9 sources)Vitamin DStart: 11-52-3544idih 1 tablet by mouth once dailyclobetasol propionate 0.5 mg/ml topical cream (12 sources)CorticosteroidStart: 11-23-2022 End: 70-49-6694nzehhydywc (Temovate) 0.05 % cream APPLY THIN LAYER TO HANDS & NAILS DAILY TUE-TUE,NO WEEKENDS,UNTIL CLEAR REPEAT NEEDED FOR FLARES 11/23/2022 06/14/2024 Discontinued (Ineffective)esomeprazole 40 mg delayed release oral capsule (20 sources)Proton Pump InhibitorStart: 35-17-4229weue 1 capsule by mouth twice dailyStart: 53-37-3454Vqmcsudbbexw Magnesium 40 MG 1 capsule Orally twice daily on empty stomach followed in 30 minutes by food for 30 days November, Active Start: 10-19-2017 End: 85-09-7566vpiz 1 capsule by mouth once dailyEsomeprazole Magnesium 40 mg capsule,delayed release(DR/EC) Discontinued 40 MG PO Daily July 05, 2024 12:00am August 23, 2024 7:07amEsomeprazole Magnesium 40 mg capsule,delayed release(DR/EC) (2 sources)Start: 66-74-9655cjjo 1 capsule by mouth twice dailyEsomeprazole Magnesium 40 mg capsule,delayed release(DR/EC) Active 0 .ROUTE .COMPLEX 180 August 23, 2024 8:07am TAKE 1 CAPSULE BY MOUTH TWICE A DAY ON AN EMPTY STOMACH FOLLOWED IN 30 MINUTES BY FOOD 90ezetimibe 10 mg oral tablet (2 sources)Dietary Cholesterol Absorption InhibitorStart: 24-75-8533awwc 1 tablet by mouth once dailyfluticasone propionate 0.05 mg/actuat metered dose nasal spray (20 sources)Corticosteroidtake 1 spray(s) nasal route once dailyfluticasone (Flonase) 50 MCG/ACT nasal spray Administer 1 spray into each nostril Daily Activetake 1 spray(s) nasal route in the morningfluticasone (Flonase) 50 MCG/ACT nasal spray Administer 1 spray into each nostril in the morning. Oqdnur12 actuat fluticasone furoate 0.1 mg/actuat / umeclidinium 0.0625 mg/actuat / vilanterol 0.025 mg/actuat dry powder inhaler (4 sources)Anticholinergic, Corticosteroid, beta2-Adrenergic AgonistStart: 90-87-3982ukgu 1 puff(s) by inhalation once kzgqiNbqzvodemff-Ugxdgauhc-Ngiqzv (Trelegy Ellipta) 100-62.5-25 MCG/ACT aerosol powder Indications: Chronic obstructive pulmonary disease, unspecified COPD type (HCC) Inhale 1 puff Daily 60 each 5 01/16/2025 Activegentamicin 0.001 mg/mg topical ointment (15 sources)Start: 58-12-4892mgwhzvjzkw (Garamycin) 0.1 % ointment Indications: Bacterial infection Apply to hands BID prn 15 g 11 08/28/2024 ActiveStart: 40-86-5441srixjojdoj (Garamycin) 0.1 % ointment Indications: Bacterial infection Apply to left hand BID x 7 days. 15 g 07/26/2024 ActivehydroCHLOROthiazide 12.5 mg / telmisartan 40 mg oral tablet (19 sources)Thiazide Diuretic, Angiotensin 2 Receptor BlockerStart: 05-25-2025 take 1 tablet by mouth once dailyStart: 08-14-2024 End: 67-98-4690ubbc 1 tablet by mouth once dailyTelmisartan-Hydrochlorothiazid 40-12.5 mg tablet Discontinued 1 TAB PO Daily 30 30 5 August 14, 2024 12:00am December 16, 2024 6:40amlactobacillus rhamnosus gg [id number] unt oral capsule (3 sources)Start: 24-44-6550cytpuamqaznk 0.008 mg oral capsule (20 sources)Chloride Channel ActivatorStart: 02-06-2025 End: 40-48-0226qrwo 1 capsule by mouth once dailyStart: 07-47-3968hter 1 capsule by mouth once dailyStart: 01-29-2025 End: 40-68-7627bamc 1 capsule by mouth once dailyLubiprostone 8 mcg capsule Discontinued 8 MCG PO Daily January 28, 2025 11:00pm January 29, 2025 8:48amStart: 04-08-2024 End: 10-59-1147oumk 1 capsule by mouth in the morninglubiprostone (Amitiza) 8 MCG capsule Take 8 mcg by mouth in the morning and 8 mcg before bedtime. 06/14/2024 Discontinued (Med list cleanup)Start: 02-17-2024 End: 27-37-6179qjpv 1 capsule by mouth twice dailyLubiprostone (Amitiza) 8 mcg capsule Discontinued 8 MCG PO Twice daily 60 30 5 February 16, 2024 11:00pm April 24, 2024 12:59pmStart: 02-17-2024 End: 98-87-1923qqkl 1 capsule by mouth twice dailyLubiprostone (Amitiza) 8 mcg capsule Discontinued 8 MCG PO Twice daily 60 30 February 17, 2024 12:00am April 24, 2024 1:59pmomeprazole 40 mg delayed release oral capsule (20 sources)Proton Pump InhibitorStart: 04-26-2022 End: 74-05-9179riqs 1 capsule by mouth twice daily 30 minutes before mealtime omeprazole (PriLOSEC) [address] capsule TAKE 1 CAPSULE BY MOUTH 30 MINUTES BEFORE MEAL TWICE DAILY FOR 30 DAYS 05/20/2022 06/14/2024 Discontinued (Med list cleanup)Start: 06-02-2021 End: 39-43-0980bgvk 1 capsule by mouth once dailyOmeprazole 40 mg Capsule,Delayed Release(Dr/Ec) Discontinued 40 MG PO Daily June 02, 2021 12:00am July 05, 2024 8:12ampaxlovid (300/100) 20 x 150 mg & 10 x 100mg tablet therapy pack (2 sources)Start: 82-98-9357wofz 3 tablets by mouth every twelve hoursPaxlovid (300/100) 20 x 150 MG & 10 x 100MG 3 tablets Orally Twice a day for 5 days Aug, Activephentermine hydrochloride 37.5 mg oral tablet (2 sources)Sympathomimetic Amine AnorecticStart: 07-87-8874cfpz 1 tablet by mouth once daily 30 minutes after breakfastpolyethylene glycol 3350 47955 mg powder for oral solution (20 sources)Osmotic LaxativeStart: 84-81-4389Mecay: 11-22-2023 End: 27-77-1609Yxpeviepcoyz Glycol 3350 (Miralax) 17 gram/dose powder Discontinued 17 GM PO Twice daily November 23, 2023 11:00pm February 17, 2024 7:51am Take 17 grams in liquid three times a day for constipationStart: 08-25-2023 MiraLax 17 GM/SCOOP 1 scoop mixed with 8 ounces of fluid Orally Once a day for 30 days Aug,ctiveStart: 35-24-7745sluv 17 g by mouth twice daily Polyethylene Glycol 3350 17 GM/SCOOP 17gm Orally twice a day for 30 day(s) Jun, Not-TakingStart: 04-53-7310kbys 17 g by mouth once dailyPolyethylene Glycol 3350 17 GM/SCOOP 17gm Orally Once a day for 30 day(s) please dispense largest quantity Mar, ActivepredniSONE 20 mg oral tablet (11 sources)Start: 70-47-4221Ryswf: 08-09-2024 End: 25-80-1944Lwmuaqevlo 20 mg tablet Discontinued 20 MG PO As Directed 18 0 August 09, 2024 12:00am January 07, 2025 12:57pm 1 tab tid w/ food x 3 days, then bid w/ food x 3 days, then qd w/ food x 3 daysStart: 07-05-2024 End: 48-77-2619iruq 2 tablets by mouth once dailyPrednisone 10 mg tablet Discontinued 20 MG PO Daily July 05, 2024 12:00am August 09, 2024 1 0:58amRoflumilast (5 sources)Phosphodiesterase 4 InhibitorStart: 78-26-1166Ynebeokxovq (Zoryve) 0.15 % cream Indications: Other atopic dermatitis Apply 1 Application topically Daily as needed (apply to hands when flared, hold when clear) 60 g 11 01/07/2025 Activetamsulosin hydrochloride 0.4 mg oral capsule (20 sources)alpha-Adrenergic BlockerStart: 89-19-1012jcjh 1 capsule by mouth once daily at bedtimeStart: 12-12-2023 End: 00-66-3357Jtyemvccal 0.4 mg capsule Discontinued 0 .ROUTE .COMPLEX 90 3 March 07, 2024 12:32pm April 12, 2025 9:22am TAKE 1 CAPSULE BY MOUTH 30 MINUTES AFTER EVENING MEAL EVERY NIGHTStart: 10-12-2022 End: 25-79-9987eayo 1 capsule by mouth once dailyTamsulosin 0.4 mg capsule Discontinued 0.4 MG PO Daily November 23, 2023 11:00pm December 12, 2023 12:05pmStart: 28-49-7367bweaozjnhu (Flomax) 0.4 MG 24 hr capsule 10/12/2022 ActiveTamsulosin HCl Not-TakingTamsulosin HCl Activetazarotene 1 mg/ml topical cream (12 sources)RetinoidStart: 11-24-2022 End: 14-66-3424hwtweffocu (Tazorac) 0.1 % cream APPLY TO HANDS DAILY 11/24/2022 06/14/2024 Discontinued (Med list cleanup)terbinafine 250 mg oral tablet (20 sources)Allylamine AntifungalStart: 05-17-2024 End: 53-79-8262hmtx 1 tablet by mouth once dailyterbinafine (LamISIL) [...] 90 mcg/actuation Aerosol (5 sources)Start: 06-02-2021 End: 99-02-4767xlpq 90 ug by inhalation twice dailyAlbuterol 90 mcg/actuation Aerosol Discontinued 90 MCG INHALATION Twice daily June 02, 2021 12:00am January 16, 2024 12:24pmStart: 06-02-2021 End: 02-67-3900qmhq 90 ug by inhalation twice dailyAlbuterol 90 mcg/actuation Aerosol Discontinued 90 MCG INHALATION Twice daily June 02, 2021 1:00am January 16, 2024 1:24pmamoxicillin 875 mg / clavulanate 125 mg oral tablet (10 sources)Penicillin-class AntibacterialStart: 08-09-2024 End: 30-49-3296imbo 1 tablet by mouth every twelve hoursAmoxicillin-Pot Clavulanate 875-125 mg tablet Discontinued 1 TAB PO Every 12 hours 14 7 0 October 17, 2024 3:28pm January 07, 2025 12:58pmbenzonatate 200 mg oral capsule (17 sources)Non-narcotic AntitussiveStart: 07-06-2024 End: 68-80-2271lpeu 1 capsule by mouth three times dailyBenzonatate 200 mg capsule Discontinued 200 MG PO Three times daily 30 10 0 July 06, 2024 12:00am January 07, 2025 12:58pmStart: 24-71-8725zmqi 1 capsule by mouth every eight hoursBenzonatate 200 MG 1 capsule Orally Three times a day for 10 Aug, Not-Takingcefuroxime 500 mg oral tablet (12 sources)Cephalosporin AntibacterialStart: 59-73-4165gbrd 1 tablet by mouth every twelve hoursCefuroxime Axetil 500 MG 1 tablet Orally every 12 hrs for 5 day(s) Aug, Not-Takingciprofloxacin 500 mg oral tablet (10 sources)Quinolone AntimicrobialStart: 04-24-2024 End: 31-96-4041dnxf 1 tablet by mouth twice dailyCiprofloxacin Hcl (Cipro) 500 mg tablet Discontinued 500 MG PO Twice daily 20 10 April 23, 2024 11:00pm July 05, 2024 8:16amStart: 01-16-2024 End: 56-12-4782rzmf 1 tablet by mouth twice dailyCiprofloxacin Hcl 500 mg tablet Discontinued 500 MG PO Twice daily 20 10 January 15, 2024 11:00pm February 17, 2024 7:50amdicyclomine hydrochloride 20 mg oral tablet (20 sources)AnticholinergicStart: 85-27-3618xsfy 1 tablet by mouth at bedtime Dicyclomine HCl 20 MG 1 tablet Orally AC and HS for 10 days Sep, Not-TakingStart: 91-07-4419awqk 1 tablet by mouth three times daily as needed Dicyclomine HCl 20 MG 1 tablet Orally Three times a day as needed for 30 day(s) May, ActivediphenhydrAMINE citrate 38 mg / ibuprofen 200 mg oral tablet (6 sources)Histamine-1 Receptor Antagonist, Nonsteroidal Anti-inflammatory Drug Start: 06-02-2021 End: 42-94-5352oyyx 1 capsule by mouth once daily at bedtime as needed for sleep Ibuprofen-Diphenhydramine Cit (Advil Pm) 200-38 mg Tablet Discontinued 1 CAP PO Daily at bedtime asneeded for sleep June 02, 2021 12:00am January 16, 2024 12:24pmdoxycycline hyclate 100 mg oral capsule (20 sources)Tetracycline-class DrugStart: 08-31-2024 End: 02-67-8752slkk 1 capsule by mouth twice dailyDoxycycline Hyclate 100 mg capsule Discontinued 100 MG PO Twice daily 14 7 0 August 31, 2024 5:27pm January 07, 2025 12:57pmStart: 06-26-2024 End: 17-04-9167oqxz 1 capsule by mouth twice dailyDoxycycline Hyclate 100 mg capsule Discontinued 100 MG PO Twice daily 14 7 0 June 26, 2024 12:00am July 05, 2024 8:15amStart: 05-09-2024 End: 88-41-9842gjbt 1 capsule by mouth twice dailydoxycycline (Monodox) 100 MG capsule Indications: Bacterial infection Take 1 capsule, by mouth bid,x 10 days 20 capsule 05/09/2024 12/25/2024 Discontinued (Therapy completed)Start: 02-73-1495tulb 1 capsule by mouth twice dailyDoxycycline Hyclate 100 MG 1 capsule Orally twice daily for 7 days Aug, Chgiva53 actuat fluticasone propionate 0.25 mg/actuat / salmeterol 0.05 mg/actuat dry powder inhaler (20 sources)Corticosteroid, beta2-Adrenergic AgonistStart: 09-19-2024 End: 42-49-3381epkm 1 puff(s) by inhalation twice dailyFluticasone Propion- Salmeterol 250-50 mcg/dose blister with device Discontinued 0 .ROUTE .COMPLEX 18 0 3 September 19, 2024 1:12pm January 16, 2025 11:31am INHALE 1 PUFF INTO THE LUNGS TWICE A DAYStart: 12-12-2023 End: 24-20-1688fujn 1 puff(s) by inhalation twice dailyFluticasone Propion- Salmeterol (Wixela Inhub) 250-50 mcg/dose blister with device Discontinued 0 .RO [place] .COMPLEX 180 1 December 12, 2023 12:24pm September 19, 2024 1:12pm INHALE 1 PUFF INTO THE LUNGS TWICE A DAY FOR 30 DAYSStart: 12-12-2023 End: 30-11-0131oydm 1 puff(s) by inhalation twice dailyFluticasone Propion- Salmeterol (Wixela Inhub) 250-50 mcg/dose blister with device Discontinued 0 .RO [place] .COMPLEX 180 December 12, 2023 1:24pm September 19, 2024 2:12pm INHALE 1 PUFF INTO THE LUNGS TWICE A DAY FOR 30 DAYSStart: 12-12-2023 End: 35-98-4160Jbjhuixapup Propion-Salmeterol (Advair Diskus) 250-50 mcg/dose blister with device Discontinued 1 INH INHALATION Twice daily December 11, 2023 11:00pm January 16, 2024 12:24pmStart: 12-12-2023 End: 78-68-8575Rhaqlufhhfh Propion-Salmeterol (Advair Diskus) 250-50 mcg/dose blister with device Discontinued 1 INH INHALATION Twice daily December 12, 2023 12:00am January 16, 2024 1:24pmStart: 09-16-2023 End: 77-00-0014Jctuaxgetrk Propion-Salmeterol (Wixela Inhub) 250-50 mcg/dose blister with device Discontinued 1 INH INHALATION Every 12 hours 60 30 September 16, 2023 12:00am December 12, 2023 12:27pmStart: 04-25-2023 End: 27-02-9782Qexnsw Diskus 250-50 MCG/ACT aerosol powder 04/25/2023 01/16/2025 DiscontinuedStart: 75-51-4037pclc 1 puff(s) by inhalation twice dailyAdvair Diskus 250-50 MCG/ACT aerosol powder INHALE 1 PUFF INTO THE LUNGS TWICE A DAY FOR 30 DAYS 04/25/2023 ActiveStart: 34-42-1639ymjn 1 puff(s) by inhalation twice dailyFluticasone-Salmeterol 250-50 MCG/ACT 1 puff Inhalation Twice a day for 30 days Mar, NvlhvhQlkislgrdme-Xnwmrutns-Dlfvhavg (3 sources)Start: 01-16-2025 End: 21-54-0896Lkpuoukonnt-Umeclidin-Vilanter (Trelegy Ellipta) 200-62.5-25 mcg blister with device Discontinued 1INH INHALATION Daily 60 30 0 January 15, 2025 11:00pm May 07, 2025 9:54amStart: 01-16-2025 End: 78-56-6934Qrwwpgmghjg-Umeclidin-Vilanter (Trelegy Ellipta) 200-62.5-25 mcg blister with device Discontinued 1INH INHALATION Daily 60 January 16, 2025 12:00am May 07, 2025 10:54amStart: 01-16-2025 Xvughzxoott-Ytcphkusg-Asfkamdx (Trelegy Ellipta) 200-62.5-25 mcg blister with device Active 1 INH INHALATION Daily 60 January 16, 2025 12:00am Complies with drug therapyhydroCHLOROthiazide 12.5 mg / lisinopril 10 mg oral tablet (20 sources)Thiazide Diuretic, Angiotensin Converting Enzyme InhibitorStart: 08-07-2024 End: 43-00-2136qxtf 1 tablet by mouth once dailyLisinopril-Hydrochlorothiazide 20-25 mg tablet Discontinued 1 TAB PO Daily 90 90 3 August 07, 2024 12:00am August 14, 2024 10:16amStart: 07-06-2024 End: 42-71-6850tzot 1 tablet by mouth once dailyLisinopril-Hydrochlorothiazide 10-12.5 mg tablet Discontinued 1 TAB PO Daily 90 90 2 August 07, 2024 12:43pm August 07, 2024 12:44pmlinaclotide 0.145 mg oral capsule (5 sources)Guanylate Cyclase-C AgonistStart: 01-30-2024 End: 50-75-3051ajns 1 capsule by mouth once dailyLinaclotide (Linzess) 145 mcg capsule Discontinued 145 MCG PO Daily 30 30 January 29, 2024 11:00pmJuly 2023 7:51amloperamide hydrochloride 2 mg oral capsule (6 sources)Opioid AgonistStart: 06-02-2021 End: 65-32-5117wefb 1 capsule by mouth once daily as neededLoperamide 2 mg Capsule Discontinued 2 MG PO Daily as needed for loose stool June 02, 2021 12:00am January 16, 2024 12:24pmmontelukast 10 mg oral tablet (6 sources)Leukotriene Receptor AntagonistStart: 06-02-2021 End: 90-26-6355fjud 1 tablet by mouth once dailyMontelukast 10 mg tablet Discontinued 10 MG PO Daily June 02, 2021 12:00am November 24, 2023 11:27am plecanatide 3 mg oral tablet (6 sources)Start: 01-07-2025 End: 70-05-2769ugdr 1 tablet by mouth once dailyPlecanatide (Trulance) 3 mg tablet Discontinued 3 MG PO Daily January 06, 2025 11:00pm January 29, 2025 8:31am Start: 01-16-2024 End: 40-26-5642cmkb 1 tablet by mouth once dailyPlecanatide (Trulance) 3 mg tablet Discontinued 3 MG PO Daily January 15, 2024 11:00pm January 30, 2024 10:43amPlecanatide (Trulance) 3 mg tablet (2 sources)Start: 01-16-2024 End: 36-04-4718cgqs 1 tablet by mouth once dailyPlecanatide (Trulance) 3 mg tablet Discontinued 3 MG PO Daily January 16, 2024 12:00am January 30, 2024 11:43amPolyethylene Glycol 3350 (Miralax) 17 gram/dose powder (3 sources)Start: 11-22-2023 End: 09-92-0879Voqjqhojdgyg Glycol 3350 (Miralax) 17 gram/dose powder Discontinued 17 GM PO Three times daily November 22, 2023 12:00am November 24, 2023 12:29pm Take 17 grams in liquid three times a day for constipation rosuvastatin calcium 20 mg oral tablet (20 sources)HMG-CoA Reductase InhibitorStart: 06-02-2021 End: 44-65-2959hmjn 1 tablet by mouth every other dayRosuvastatin 20 mg Tablet Discontinued 20 MG PO .every other day June 02, 2021 12:00am January 16, 2024 12:25pmtake 1 tablet by mouth in the eveningRosuvastatin Calcium 20 MG TAKE 1 TABLET BY MOUTH IN THE EVENING ActiveCrestor 20MG ActiveSod Picosulf-Mag Ox- Citric Ac (6 sources)Start: 11-22-2023 End: 67-20-1954bcoj 1 mL by mouth once dailySod Picosulf-Mag Ox-Citric Ac (Clenpiq) 10 mg-3.5 gram- 12 gram/175 mL solution Discontinued 175 MLPO Daily 1 November 21, 2023 11:00pm January 16, 2024 12:25pm please follow instructions providedby Dr. Briggs's office.Start: 11-22-2023 End: 27-41-4626xfjr 1 mL by mouth once dailySod Picosulf-Mag Ox-Citric Ac (Clenpiq) 10 mg-3.5 gram- 12 gram/175 mL solution Discontinued 175 MLPO Daily 07 25November 22, 2023 12:00am January 16, 2024 1:25pm please follow instructions provided byDr. Briggs's office.Start: 51-53-7578qtwe 1 mL by mouth once dailySod Picosulf-Mag Ox-Citric Ac (Clenpiq) 10 mg-3.5 gram- 12 gram/175 mL solution Active 175 ML PO Daily 1 November 22, 2023 12:00am please follow instructions provided by Dr. Briggs's office.tacrolimus 0.001 mg/mg topical ointment (20 sources)Calcineurin Inhibitor ImmunosuppressantStart: 05-17-2024 End: 25-60-9909shcliywftx (Protopic) 0.1 % ointment Indications: Encounter for removal of sutures Apply topically 2 (two) times a day 60 g 3 05/17/2024 01/10/2025 Discontinued (Therapy completed)ubidecarenone 200 mg oral capsule (15 sources)Start: 06-02-2021 End: 09-32-6479Noykpoll Q10 (Co Q-10) 200 mg Capsule Discontinued 200 MG PO Daily June 02, 2021 12:00am January 16, 2024 12:31eqGgP33 200 MG as directed Orally ActiveZinc (20 sources)Start: 06-02-2021 End: 10-52-1539gadg 1 tablet by mouth once dailyZinc 50 mg Tablet Discontinued 50 MG PO Daily June 02, 2021 12:00am November 24, 2023 11:28amStart: 06-02-2021 End: 52-28-1630axph 1 tablet by mouth once dailyZinc 50 mg Tablet Discontinued 50 MG PO Daily June 02, 2021 1:00am November 24, 2023 12:28pmStart: 06-02-2021 End: 07-24-4590vndj 50 mg by mouth once dailyZinc Discontinued 50 MG PO Daily June 02, 2021 1:00am November 24, 2023 12:28pmZinc Not-TakingZinc Active Problems Active Problems Problem ClassificationProblemDateDocumented DateEpisodic/ChronicAbdominal pain (20 sources)Stomach cramps; Translations: [Unspecified abdominal pain]Onset: 01-29-2014 Resolved: 77-83-7341SjukhbdlMkkma and unspecified renal failure (2 sources)Acute kidney failure, unspecified; Translations: [ACUTE KIDNEY FAILURE UNSPECIFIED]Onset: 70-35-1975JaqjznmlCeala bronchitis (20 sources)Acute bronchitis due to other specified organisms; Translations: [Acute bronchitis]Onset: 91-91-0066JrxjwnxlVwelvqp-related disorders (9 sources)Alcohol abuse; Translations: [Alcohol abuse, uncomplicated]Chronic Allergic reactions (4 sources)Atopic dermatitis; Translations: [Other atopic dermatitis]05-31-2024 ChronicChronic obstructive pulmonary disease and bronchiectasis (20 sources)Chronic obstructive pulmonary disease with acute lower respiratory infection; Translations: [Chronic obstructive pulmonary disease with (acute) lower respiratory infection]Onset: 08-04-2018 Resolved: 81-43-9601SwoqqmeFntwmflyv of lipid metabolism (20 sources)Familial hypercholesterolemia; Translations: [Familial hypercholesterolemia]Onset: 29-71-7426WnpriwxYyhphkr on above:Problem List clean-up per request of Phys. EHR CmteDiverticulosis and diverticulitis (20 sources)Diverticulitis of colon; Translations: [Diverticulitis of intestine, part unspecified, without perforation or abscess without bleeding]Onset: 09-05-2018 Resolved: [id number] disorders (20 sources)Gastroesophageal reflux disease; Translations: [Gastro-esophageal reflux disease without esophagitis]Onset: 11-15-2014 Resolved: 70-63-9950NvbsbyfLunnhryij hypertension (12 sources)Hypertensive disorder; Translations: [Essential (primary) hypertension]Onset: 01-07-2025 Resolved: [id number]nd on above:Stress Test NM: LVEF 62%, no reversible defect, no TID - 04/2025Fluid and electrolyte disorders (2 sources)Dehydration; Translations: [DEHYDRATION]Onset: 27-55-3401Pqaqrbha Genitourinary symptoms and ill-defined conditions (9 sources)Peterson hematuria; Translations: [Gross hematuria]EpisodicHyperplasia of prostate (20 sources)Lower urinary tract symptoms due to benign prostatic hypertrophy; Translations: [Benign prostatic hyperplasia with lower urinary tract symptoms] Onset: 21-94-9957GpxvsxbEwjgfkzkohbyu and screening for infectious disease (18 sources)Nonspecific tuberculin test reaction ; Translations: [Nonspecific reaction to tuberculin skin test without active tuberculosis]EpisodicIntestinal infection (2 sources)Campylobacter enteritis; Translations: [CAMPYLOBACTER ENTERITIS] Onset: 92-41-4905ZehjcwudRfmvljo (20 sources)Onychomycosis due to dermatophyte ; Translations: [Dermatophytosis of nail]Onset: 102068-58-3279UlmcqyuqFixbcftqw of unspecified nature or uncertain behavior (2 sources)Neoplastic disease; Translations: [Neoplasm of unspecified behavior of bone, soft tissue, and skin]84-02-0456DoyvctjqCrnvlhvciupjve (9 sources)Osteoarthritis; Translations: [Polyosteoarthritis, unspecified]Onset: 29-68-2033GiwffgtMpfny aftercare (1 source)rn long term care (current) use of aspirin; Translations: [HALFWAY CURRENT USE OF ASPIRIN]Onset: 68-67-5368BpurbhrjFlzyv aftercare (1 source)Other usp (current) drug therapy; Translations: [OTH HALFWAY CURRENT DRUG THERAPY]Onset: 47-60-6655YlyvalyxLvmpy aftercare (9 sources)Long-term current use of drug therapy; Translations: [Other usp (current) drug therapy]EpisodicOther aftercare (2 sources)Removal of sutures done; Translations: [Encounter for removal of sutures]68-15-3339DqdbuxdvUmsqp aftercare (2 sources)Taking high risk medication; Translations: [Other usp (current) drug therapy]46-26-6660CvvlsbpdZlzca and unspecified benign neoplasm (9 sources)Polyp of colon; Translations: [Polyp of colon]EpisodicOther congenital anomalies (20 sources)Congenital anomaly of larynx; 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]Onset: 167095-49-8573SzkmhruXxfet congenital anomalies (2 sources)Other congenital malformations of larynxChronicOther connective tissue disease (1 source)Suspected respiratory disease; Translations: [Other symptoms and signs involving the nervous system]64-79-9767QumgyivdDvqnv disorders of stomach and duodenum (20 sources)Indigestion; Translations: [Functional dyspepsia]77-83-3340Fzxervfx Other disorders of stomach and duodenum (1 [...] [Irritable bowel syndrome with constipation]Onset: 01-07-2025 Resolved: 891057-92-3888AbjeaxjVrwgl gastrointestinal disorders (4 sources)Irritable bowel syndrome with constipation; Translations: [Irritable bowel syndrome]ChronicOther gastrointestinal disorders (4 sources)Irritable bowel syndrome; Translations: [Irritable bowel syndrome without diarrhea]81-23-5190LpomwiwUujud gastrointestinal disorders (17 sources)Swollen abdomen; Translations: [Abdominal [...] disorders (5 sources)Diarrhea, unspecified; Translations: [DIARRHEA UNSPECIFIED]Onset: 33-47-2250WsjqawryGuuru gastrointestinal disorders (3 sources)Personal history of other diseases of the digestive systemEpisodic Other gastrointestinal disorders (10 sources)Disorder of gastrointestinal tract; Translations: [Other specified diseases of the digestive system]Onset: 01-07-2025 Resolved: 289441-30-1077YasgquuiHmeub lower respiratory disease (20 sources)Chronic cough; Translations: [Chronic cough]Onset: 01-07-2025 Resolved: 174114-50-9350MwqoqyihOhkvb lower respiratory disease (1 source)Other forms of dyspneaEpisodicOther lower respiratory disease (10 sources)Hypoxia; Translations: [Hypoxemia]Onset: 01-07-2025 Resolved: 864560-13-8522OdouiinqAeybo non-epithelial cancer of skin (9 sources)Squamous cell carcinoma of upper extremity; Translations: [Squamous cell carcinoma of skin of unspecified upper limb, including shoulder]Episodic Other nutritional; endocrine; and metabolic disorders (20 sources)Obese class I; Translations: [Body mass index (BMI) 32.0-32.9, adult]Onset: 23-15-8256YvubdfxCkdnv nutritional; endocrine; and metabolic disorders (9 sources)Morbid obesity; Translations: [Morbid (severe) obesity due to excess calories]Onset: 73-41-5395WgoxxviDeeqt nutritional; endocrine; and metabolic disorders (9 sources)Simple obesity ; Translations: [Other obesity due to excess calories] Onset: 44-77-7601UwjktxeGtgtk nutritional; endocrine; and metabolic disorders (13 sources)Obesity; Translations: [Obesity, unspecified]56-09-3217HpobmwfRxkdx nutritional; endocrine; and metabolic disorders (9 sources)Body [...] mechanism; Translations: [Patient encounter status]Onset: 09-22-2015 Resolved: 875101-64-5696XvonvzdjSheqzwe on above:PSA: 0.21 - 04/2025Other skin disorders (2 sources)Eruption; Translations: [Rash and other nonspecific skin eruption] 80-62-6889XgyxsqdxPzzsj skin disorders (4 sources)Actinic keratosis; Translations: [Actinic keratosis]05-31-2024 EpisodicOther skin disorders (2 sources)Skin tag; Translations: [Other hypertrophic disorders of the skin] 28-85-6890QaugoflrQpyhr skin disorders (4 sources)Asteatosis cutis; Translations: [Xerosis cutis]03-07-9793Krlpcktw Other upper respiratory disease (9 sources)Allergic rhinitis; Translations: [Allergic rhinitis, unspecified] Onset: 08-05-5487GorrwsqSbuyp upper respiratory disease (9 sources)Vasomotor rhinitis; Translations: [Vasomotor rhinitis]ChronicOther upper respiratory disease (20 sources)Chronic rhinitis; Translations: [Chronic rhinitis]Onset: 12-16-2022 52-74-8508BazxchjFmxzr upper respiratory disease (10 sources)Seasonal allergic rhinitis; Translations: [Other seasonal allergic rhinitis]Onset: 01-07-2025 Resolved: 171192-36-2107VwywibtDbsgq upper respiratory disease (2 sources)Other seasonal allergic rhinitis; Translations: [Allergic rhinitis, cause unspecified]02-68-1895HrhkwhtAanxq upper respiratory infections (20 sources)Sinusitis; Translations: [Chronic sinusitis, unspecified]Onset: 813233-76-6086GxrifsxLbshf upper respiratory infections (20 sources)Acute maxillary sinusitis; Translations: [Acute maxillary sinusitis, unspecified]Onset: 92-33-7765QnvtkwdpXbkvig media and related conditions (20 sources)Acute suppurative otitis media without spontaneous rupture of ear drum; Translations: [Acute suppurative otitis media without spontaneous rupture of ear drum, left ear]EpisodicPneumonia (except that caused by tuberculosis or sexually transmitted disease) (19 sources)Inactive tuberculosis; 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]Onset: 01-07-2025 Resolved: 845751-25-0516NpiatiopMzuibern codes; unclassified (2 sources)Hypersomnia; Translations: [Hypersomnia, unspecified]03-13-2025 ChronicResidual codes; unclassified (1 source)Obstructive sleep apnea syndrome; Translations: [Obstructive sleep apnea (adult) (pediatric)]76-23-8338UyjtnraJgngnmc on above:AHI - 33, SpO2 - 78% Residual codes; unclassified (9 sources)Immunization refused ; Translations: [Immunization not carried out because of patient refusal]EpisodicResidual codes; unclassified (20 sources)Tobacco user; Translations: [Tobacco use]Onset: EpisodicResidual codes; unclassified (11 sources)Family history of cancer of colon; Translations: [Family history of malignant neoplasm of digestiveorgans]Onset: 01-07-2025 Resolved: 086794-15-6190AgchdzscSivgogq on above:Problem List clean-up per request of Phys. EHR CmteResidual codes; unclassified (1 source)Other specified personal risk factors, not elsewhere classified; Translations: [At high risk for cardiovascular disease]91-49-6497Uoytxqvw Spondylosis; intervertebral disc disorders; other back problems (9 sources)Cervical spondylosis without myelopathy; Translations: [Spondylosis without myelopathy or radiculopathy, cervical region]ChronicSprains and strains (18 sources)Neck sprain; Translations: [Strain of muscle, fascia and tendon at neck level, initial encounter]EpisodicSubstance-related disorders (20 sources)Nicotine dependence; Translations: [Nicotine dependence, cigarettes, uncomplicated]Onset: 11-15-2014 Resolved: 54-34-9904AoirpmsJoxdyscziiva (1 source)CONTACT W/AND (SUSP) EXPOS COVID-19; Translations: [CONTACT W/AND (SUSP) EXPOS COVID-19]Onset: 77-36-7838Trnhzvwsyiqv (9 sources)Exposure to acute respiratory syndrome coronavirus 2; Translations: [Contact with and (suspected) exposure to COVID-19]Viral infection (10 sources)Disease caused by 2019-nCoV; Translations: [COVID-19] Past or Other Problems Problem ClassificationProblemDateDocumented DateEpisodic/ChronicAllergic reactions (18 sources)Allergic contact dermatitis due to plants, except food; Translations: [Allergic contact dermatitis due to plants, except food]Onset: 58-57-7208GqlkmkexWaqibstoiq disorders (2 sources)Esophageal disorders; Translations: [Gastro-esophageal reflux disease with esophagitis, without bleeding]Inflammation; infection of eye (except that caused by tuberculosis or sexually transmitteddisease) (9 sources)Acute atopic conjunctivitis of left eye; Translations: [Acute atopic conjunctivitis, left eye] Resolved: 89-88-1285LjhkvhwtOcyfhcxbo (9 sources)Influenza; Translations: [Influenza with other respiratory manifestations]Onset: 52-40-2372KnergmrwIakdhbt and fatigue (9 sources)Malaise and fatigue; Translations: [Other malaise and fatigue]Onset: 59-68-5782FyabgqvsUkvcih and vomiting (9 sources)Nausea; Translations: [Nausea]Onset: 09-86-7289GrntpvvjXxgxpdhbfrgal gastroenteritis (5 sources)Noninfective gastroenteritis and colitis, unspecified; Translations: [NONINFECTIVE GE AND COLITIS UNS]Onset: 36-51-3119KgjrgfirXmbtr connective tissue disease (9 sources)Synovitis and tenosynovitis; Translations: [Synovitis and tenosynovitis, unspecified]Onset: 19-46-9353YjqlmqbtCnodj connective tissue disease (9 sources)Pes anserinus tendinitis and bursitis; Translations: [Pes anserinus tendinitis or bursitis]Onset: 73-51-9188QsxwbbmfZjciq ear and sense organ disorders (20 sources)Hearing loss; Translations: [Unspecified hearing loss, unspecified ear]Onset: 10-23-2020 Resolved: 349262-82-4734UigzdkaUfcru gastrointestinal disorders (3 sources)Abdominal distension (gaseous); Translations: [ABDOMINAL DISTENSION GASEOUS]Onset: 18-46-7321ZobruliyGieml gastrointestinal disorders (9 sources)Flatulence, eructation and gas pain; Translations: [Abdominal distension (gaseous)]Onset: 89-25-3497GwmuhyjnWhsct gastrointestinal disorders (9 sources)Digestive symptom; Translations: [Other symptoms involving digestive system]Onset: 91-62-2983PkgriugtAeejt non-traumatic joint disorders (9 sources)Arthralgia of the lower leg; Translations: [Pain in unspecified knee] Onset: 25-09-6612XfwrfpgbSptnn skin disorders (9 sources)Localized swelling, mass and lump, unspecified; Translations: [Localized mass]Onset: 10-58-9207FtobdndzSkbb and subcutaneous tissue infections (9 sources)Cellulitis of right axilla; Translations: [Cellulitis of right axilla]Onset: 50-04-7333QxdpbukeCqpxdhgsfvs injury; contusion (9 sources)Contusion of lower leg; Translations: [Contusion of unspecified lower leg, initial encounter]Onset: 83-01-6484MwpusbjeLxhmgaykwpnt (9 sources)Long-term current use of drug therapy; Translations: [Long-term (current) use of other medications]Onset: 32-16-2301Tpvfuhyagutz (1 source)Post COVID-19 condition, 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Unclassified (2 sources)Latent tuberculosisUnclassified (2 sources)Removal of sutures sexk05-27-7661 Results Test NameValueInterpretationReference RangeFacilityHemoglobin [Mass/volume] in Bloodon 27-93-9852Ychgnaopsh (Bld) [Mass/Vol]16.1 g/dL14.0-18.0[facility] HospitalNo Panel Informationon 78-86-8522BVVTWashington University Medical CenterType of biopsy: tangential Informed consent: [...] taken yes Amount of lidocaine used: 0.5 [facility]Estimated glomerular filtration rate (GFR) non- Americanon 74-04-0560RTN/1.73 sq M.predicted among non-blacks MDRD (S/P/Bld) [Vol rate/Area]Estimated glomerular filtration rate (GFR) non- AmericanLow>=60 mL/min/1.73m 2FCleveland Clinic Fairview HospitalLaboratory - Chemistry and Chemistry - challengeon 51-39-5414Tsaqkafddg [Mass/Vol]1.34 mg/dLHigh0.70-1.30[facility] HospitalGFR/1.73 sq M.predicted MDRD (S/P/Bld) [Vol rate/Area]mL/min/{1.73_m2} >=60 mL/min/1.[address]m [address] [place], [place] [address]No Panel Informationon [id number] [facility]iatric Hospital Panel Informationon [id number] of biopsy: punch Informed consent: discussed and [...] Number of sutures used: [address] [facility] CenterCB AUTO DIFFon [id number] #0.1 103/ulNormal0.0-0.1[facility] HospitalComment on above: Performed By: #### CBC #### [facility] [address] [address] [address] Kyle Reisphils/100 WBC (Bld)0.8 %Normal0.2-2.0[facility] Comment on above:Performed By: #### CBC #### [facility] [address] [address] [address] Kyle Saravia #0.2 103/ulNormal0.0-0.7The [facility] CenterComment on above: Performed By: #### CBC #### [facility] [address] [place] [address] Dr. Kyle Holtosinophils/100 WBC (Bld)3.7 %Normal0.9-7.0[facility] Comment on above:Performed By: #### CBC #### [facility] [address] [place] [address] Dr. Kyle Holtrythrocyte distribution width (RBC) [Ratio]14.5 %Eztgxk88.0-15.0 The [facility] CenterComment on above:Performed By: #### CBC #### [facility] [address] [place] [address] Dr. Kyle AdamsonHematocrit (Bld) [Volume fraction]44.3 %Tryzqm56.0-54.0The [facility] CenterComment on above:Performed By: #### CBC #### [facility] [address] [place] [address] Dr. Kyle AdamsonHemoglobin (Bld) [Mass/Vol]14.9 g/qXQkekje99.0-18.0The [facility] CenterComment on above:Performed By: #### CBC #### [facility] [address] [place] [address] Dr. Kyle Guerrero #0.06 10e3/ulCritically high0.00-0.03The [facility] Comment on above:Performed By: #### CBC #### [facility] [address] [place] [address] Dr. Kyle Guerrero %0.9 %Critically high0.0-0.5The [facility] CenterComment on above:Performed By: #### CBC #### [facility] [address] [place] [address] Dr. Kyle Coleman #2.3 103/ulNormal1.2-3.8The [facility] CenterComment on above:Performed By: #### CBC #### [facility] [address] [place] [address] Dr. Kyle Cabreramphocytes/100 WBC (Bld)35.9 %Xezfuw42.5-60.0The [facility] CenterComment on above:Performed By: #### CBC #### [facility] [address] [place] [address] Dr. Kyle Sousa DIFF REQNONormalThe [facility] CenterComment on above: Performed By: #### CBC #### [facility] [address] [place] [address] Dr. Kyle Christian (RBC) [Entitic mass]29.7 wjVvvjss09.9-34.0The [facility] CenterComment on above:Performed By: #### CBC #### [facility] [address] [place] [address] Dr. Kyle Christian (RBC) [Mass/Vol]33.6 g/uMTstvak41.9-35.2The [facility] CenterComment on above:Performed By: #### CBC #### [facility] [address] [place] [address] Dr. Kyle Christian (RBC) [Entitic vol]88.2 aGAiauqo16.0-94.0The [facility] CenterComment on above:Performed By: #### CBC #### [facility] [address] [place] [address] Dr. yKle Maddox #1.3 103/ulCritically high0.3-0.8The [facility] Comment on above:Performed By: #### CBC #### [facility] [address] [place] [address] Dr. Kyle Hicksocytes/100 WBC (Bld)19.3 %Critically high1.7-12.0The [facility] CenterComment on above:Performed By: #### CBC #### [facility] [address] [place] [address] Dr. Kyle Amaral #2.6 103/ulNormal1.4-6.5The [facility] CenterComment on above:Performed By: #### CBC #### [facility] [address] [address] [address] Kyle Swansonutrophils/100 WBC (Bld)39.4 %Critically low43.0-75.0The [facility] CenterComment on above:Performed By: #### CBC #### [facility] [address] [place] [address] Dr. Kyle AdamsonPlatelet mean volume (Bld) [Entitic vol]9.5 fLNormal9.5-13.5The [facility] CenterComment on above:Performed By: #### CBC #### [facility] [address] [place] [address] Dr. Kyle AdamsonPLT287 103/zuVodxew970-368Bhi [facility] CenterComment on above: Performed By: #### CBC #### [facility] [address] [place] [address] Dr. Kyle AdamsonRBC5.02 106/ulNormal4.70-6.10The [facility] CenterComment on above:Performed By: #### CBC #### [facility] [address] [place] [address] Dr. Kyle AdamsonWBC6.5 103/ulNormal4.0-11.0The [facility] CenterComment on above: Performed By: #### CBC #### [facility] [address] [place] [address] Dr. Kyle AdamsonPROF CHEM 8 (BAS METB)on 73-19-3056Nrcca gap [Moles/Vol]12.4 mmol/LNormalThe [facility] CenterComment on above:Performed By: #### BMP #### [facility] [address] [place] [address] Dr. Kyle AdamsonCalcium [Mass/Vol]8.6 mg/dLNormal8.5-10.1The [facility] Comment on above:Performed By: #### BMP #### [facility] [address] [place] [address] Dr. Kyle AdamsonChloride [Moles/Vol]105 mmol/PKifaus17-355Veq [facility] Comment on above:Performed By: #### BMP #### [facility] [address] [address] [address] Kyle AdamsonCO2 [Moles/Vol]24.8 mmol/UAynnmi28.0-32.0The [facility] Comment on above:Performed By: #### BMP #### [facility] [address] [address] [address] Kyle AdamsonCreatinine [Mass/Vol]1.30 mg/dLNormal0.70-1.30The [facility] CenterComment on above:Performed By: #### BMP #### [facility] [address] [address] [address] Wright ChangEGFR-AF NORWEGIAN>60Normal>=60The [facility] CenterComment on above:Performed By: #### BMP #### [facility] [address] [address] [address] Kyle HoltGFR-NON AF DFLMAFTQ38 mL/min/1.92o8Dsdnlramjs low>=60The [facility] CenterComment on above:Performed By: #### BMP #### [facility] [address] [address] [address] Kyle AdamsonGlucose [Mass/Vol]109 mg/dLCritically oiih23-120Pco [facility] CenterComment on above:Performed By: #### BMP #### [facility] [address] [address] [address] Kyle AdamsonPotassium [Moles/Vol]4.2 mmol/LNormal3.5-5.1The [facility] Comment on above:Performed By: #### BMP #### [facility] [address] [address] [address] Kyle AdamsonSodium [Moles/Vol]138 mmol/QWewagh905-176Zmi [facility] Comment on above:Performed By: #### BMP #### [facility] [address] [address] [address] Kyle AdamsonUrea nitrogen [Mass/Vol]23.0 mg/dLCritically high7.0-18.0The [facility] CenterComment on above:Performed By: #### BMP #### [facility] [address] [address] [address] Kyle AdamsonUrea nitrogen/Creatinine [Mass ratio]17.7 mg/mgNormalThe [facility] CenterComment on above:Performed By: #### BMP #### [facility] [address] [place] [address] Dr. Kyle LedezmaC AUTO DIFFon [id number] #0.1 103/ulNormal0.0-0.1The [facility] CenterComment on above:Performed By: #### CBC #### [facility] [address] [place] [address] Dr. Kyle AdamsonBasophils/100 WBC (Bld)1.0 %Normal0.2-2.0[facility] Comment on above:Performed By: #### CBC #### [facility] [address] [place] [address] Dr. Kyle HoltO #0.3 103/ulNormal0.0-0.7The [facility] CenterComment on above: Performed By: #### CBC #### [facility] [address] [place] [address] Dr. Kyle Holtosinophils/100 WBC (Bld)3.7 %Normal0.9-7.0[facility] Comment on above:Performed By: #### CBC #### [facility] [address] [place] [address] Dr. Kyle Holtrythrocyte distribution width (RBC) [Ratio]14.6 %Ydvimt24.0-15.0 The [facility] CenterComment on above:Performed By: #### CBC #### [facility] [address] [place] [address] Dr. Kyle AdamsonHematocrit (Bld) [Volume fraction]51.9 %Ieszfi76.0-54.0The [facility] CenterComment on above:Performed By: #### CBC #### [facility] [address] [place] [address] Dr. Kyle AdamsonHemoglobin (Bld) [Mass/Vol]17.9 g/zUMoabtf59.0-18.0[facility] HospitalComment on above:Performed By: #### CBC #### [facility] [address] [place] [address] Dr. Kyle Guerrero #0.03 10e3/ulNormal0.00-0.03The [facility] CenterComment on above:Performed By: #### CBC #### [facility] [address] [place] [address] Dr. Kyle Guerrero %0.4 %Normal0.0-0.5The [facility] CenterComment on above: Performed By: #### CBC #### [facility] [address] [place] [address] Dr. Kyle Coleman #2.4 103/ulNormal1.2-3.8The [facility] CenterComment on above:Performed By: #### CBC #### [facility] [address] [place] [address] Dr. Kyle Paulsonhocytes/100 WBC (Bld)33.1 %Zxwbif08.5-60.0The [facility] CenterComment on above:Performed By: #### CBC #### [facility] [address] [place] [address] Dr. Kyle JacobsenUAL DIFF REQNONormalThe [facility] CenterComment on above: Performed By: #### CBC #### [facility] [address] [place] [address] Dr. Kyle Christian (RBC) [Entitic mass]30.1 egWcuprg07.9-34.0The [facility] CenterComment on above:Performed By: #### CBC #### [facility] [address] [place] [address] Dr. Kyle Christian (RBC) [Mass/Vol]34.5 g/xMCkedaw56.9-35.2The [facility] CenterComment on above:Performed By: #### CBC #### [facility] [address] [place] [address] Dr. Kyle Christian (RBC) [Entitic vol]87.4 pCVwocft82.0-94.0The [facility] CenterComment on above:Performed By: #### CBC #### [facility] [address] [place] [address] Dr. Kyle Maddox #1.6 103/ulCritically high0.3-0.8The [facility] Comment on above:Performed By: #### CBC #### [facility] [address] [place] [address] Dr. Kyle Hicksocytes/100 WBC (Bld)22.1 %Critically high1.7-12.0The [facility] CenterComment on above:Performed By: #### CBC #### [facility] [address] [place] [address] Dr. Kyle Amaral #2.8 103/ulNormal1.4-6.5The [facility] CenterComment on above:Performed By: #### CBC #### [facility] [address] [place] [address] Dr. Kyle Swansonutrophils/100 WBC (Bld)39.7 %Critically low43.0-75.0The [facility] CenterComment on above:Performed By: #### CBC #### [facility] Laboratory [address] [place] [address] Dr. Kyle Ingram mean volume (Bld) [Entitic vol]9.3 fLCritically low 9.5-13.5The [facility] CenterComment on above:Performed By: #### CBC #### [facility] Laboratory [address] [place] [address] Dr. Kyle CamachoT282 103/snWzwftd829-471Rhz [facility] CenterComment on above: Performed By: #### CBC #### [facility] Laboratory [address] [place] [address] Dr. Kyle AdamsonRBC5.94 106/ulNormal4.70-6.10The [facility] CenterComment on above:Performed By: #### CBC #### [facility] Laboratory [address] [place] [address] Dr. Kyle RalphBC7.1 103/ulNormal4.0-11.0The [facility] CenterComment on above: Performed By: #### CBC #### [facility] Laboratory [address] [place] [address] Dr. Kyle AdamsonCovid-19 PCR (CVDTB)on 99-81-4754VANU-CoV-2 (COVID-19) RNA RADHA+probe Ql (Unsp spec)Not detectedNormalNOT DETECTEDThe [facility] Comment on above:Result Comment: When diagnostic testing [...] for this test is supported by the [employer] of Health and Human Service's declaration that [...] longer be used).Performed By: #### CVDTBH #### [facility] Laboratory [address] [place] [address] Dr. Kyle AdamsonGI PANEL (PCR)on 26-39-5621Vxsyevlgra F 40/41Not detectedNormal NOT DETECTEDThe [facility] CenterComment on above:Performed By: #### GIPANEL #### [facility] Laboratory [address] [place] [address] Dr. Kyle AdamsonAstrovirusNot detectedNormalNOT DETECTEDCleveland Clinic [facility] Comment on above:Performed By: #### GIPANEL #### [facility] Laboratory [address] [place] [address] Dr. Kyle Bishop. Diff toxin A/BNot detectedNormalNOT DETECTEDThe [facility] CenterComment on above:Performed By: #### GIPANEL #### [facility] Laboratory [address] [address] [address] Kyle VillalobacterDetectedCritically abnormalNOT DETECTEDThe [facility] CenterComment on above:Performed By: #### GIPANEL #### [facility] Laboratory [address] [address] [address] Kyle KhanyptosporidiumNot detectedNormalNOT DETECTEDThe [facility] CenterComment on above:Performed By: #### GIPANEL #### [facility] Laboratory [address] [address] [address] Kyle Farahos. CayetanensisNot detectedNormalNOT DETECTEDThe [facility] CenterComment on above:Performed By: #### GIPANEL #### [facility] Laboratory [address] [address] [address] Kyle Holt. Coli P588Bcf ApplicableNormalNot ApplicableThe [facility] CenterComhenry ford hospital on above:Performed By: #### SAGNITAANEL #### [facility] Laboratory [address] [address] [address] Kyle Holt. histolyticaNot detectedNormalNOT DETECTEDThe [facility] on above:Performed By: #### GIPANEL #### [facility] Laboratory [address] [address] [address] Kyle HoltAECNot detectedNormalNOT DETECTEDThe [facility] CenterComment on above:Performed By: #### SANGITAANEL #### [facility] Laboratory [address] [address] [address] Kyle HoltIECNot detectedNormalNOT DETECTEDThe [facility] CenterComment on above:Performed By: #### GIPANEL #### [facility] Laboratory [address] [address] [address] Kyle HoltPECNot detectedNormalNOT DETECTEDThe [facility] CenterComhenry ford hospital on above:Performed By: #### GIPANEL #### [facility] Laboratory [address] [address] [address] Kyle HoltTECNot detectedNormalNOT DETECTEDThe [facility] CenterComment on above:Performed By: #### GIPANEL #### [facility] Laboratory [address] [place] [address] Dr. Kyle Fiore LambliaNot detectedNormalNOT DETECTEDCleveland Clinic [facility] Comment on above:Performed By: #### SANGITAANEL #### [facility] Laboratory [address] [place] [address] Dr. Kyle AGUILERAPASSProvidence HospitalComment on above:Performed By: #### SANGITAANEL #### [facility] Laboratory [address] [place] [address] Dr. Kyle Ngo [facility] HEADERGI PANEL [facility] Comment on above:Performed By: #### JONELL #### [facility] Laboratory [address] [place] [address] Dr. Kyle Velez ECOLIGI PANEL DIARRHEAGENIC E.COLI / SHIGELLASelect Medical Specialty Hospital - CantonComment on above:Performed By: #### JONELL #### [facility] Laboratory [address] [place] [address] Dr. Kyle Velez INFOSEE Pomerene HospitalComment on above: Result Comment: EAEC- Enteroaggregative E. Coli EPEC- Enteropathogenic E. Coli ETEC- Enterotoxigenic E. Coli lt/st STEC- Shigella-like toxin-producing E. Coli stx1/stx2 EIEC- Shigella/Enteroinvasive E. ColiPerformed By: #### JONELL #### [facility] [address] [place] [address] Dr. Kyle Velez PARASITESGI PANEL PARASITESSelect Medical Specialty Hospital - Canton Comment on above:Performed By: #### SANGITAANEL #### [facility] Laboratory [address] [place] [address] Dr. Kyle Velez VIRUSGI PANEL VIRUSESSelect Medical Specialty Hospital - CantonComment on above:Performed By: #### SANGITAANEL #### [facility] Laboratory [address] [place] [address] Dr. Kyle Avelarvirus GI/GIINot detectedNormalNOT DETECTEDCleveland Clinic Fairview HospitalComment on above:Performed By: #### JONELL #### [facility] Laboratory [address] [address] [address] Kyle Hung ShigelloidesNot detectedNormalNOT DETECTEDThe [facility] CenterComment on above:Performed By: #### GIPANEL #### [facility] [address] [address] [address] Kyle AdamsonRotavirus ANot detectedNormalNOT DETECTEDThe [facility] Comment on above:Performed By: #### GIPANEL #### [facility] [address] [address] [address] Kyle AdamsonSalmonellaNot detectedNormalNOT DETECTEDThe [facility] Comment on above:Performed By: #### GIPANEL #### [facility] [address] [address] [address] Kyle AdamsonSapovirusNot detectedNormalNOT DETECTEDThe [facility] Comment on above:Performed By: #### GIPANEL #### [facility] Laboratory [address] [address] [address] Kyle AdamsonSTECNot detectedNormalNOT DETECTEDThe [facility] CenterComment on above:Performed By: #### GIPANEL #### [facility] Laboratory [address] [address] [address] Kyle CarbajalbrioNot detectedNormalNOT DETECTEDThe [facility] CenterComment on above:Performed By: #### GIPANEL #### [facility] Laboratory [address] [address] [address] Kyle Gamezio CholeraNot detectedNormalNOT DETECTEDC[facility] Clinic [facility] Comment on above:Performed By: #### GIPANEL #### [facility] Laboratory [address] [address] [address] Kyle Zafar. EnterocoliticaNot detectedNormalNOT DETECTEDThe [facility] CenterComment on above:Performed By: #### GIPANEL #### [facility] [address] [address] [address] Kyle AdamsonPROF CHEM 8 (BAS METB)on 25-05-7609Wjmpg gap [Moles/Vol]17.9 mmol/LNormalThe [facility] CenterComment on above:Performed By: #### BMP #### [facility] Laboratory [address] [address] [address] Kyle AdamsonCalcium [Mass/Vol]9.6 mg/dLNormal8.5-10.1[facility] Comment on above:Performed By: #### BMP #### [facility] [address] [address] [address] Kyle AdamsonChloride [Moles/Vol]98 mmol/GQygfbg31-825Nmz [facility] Comment on above:Performed By: #### BMP #### [facility] Laboratory [address] [address] [address] Kyle AdamsonCO2 [Moles/Vol]24.4 mmol/XBebhdq32.0-32.0The [facility] Comment on above:Performed By: #### BMP #### [facility] Laboratory [address] [place] [address] Dr. Kyle AdamsonCreatinine [Mass/Vol]1.65 mg/dLCritically high0.70-1.30The [facility] CenterComment on above:Performed By: #### BMP #### [facility] Laboratory [address] [place] [address] Dr. Kyle HoltGFR-AF CXZDBNGE15 mL/min/1.90a7Rkhbwgsyvq low>=60The [facility] CenterComment on above:Performed By: #### BMP #### [facility] Laboratory [address] [address] [address] Kyle HoltGFR-NON AF HGANVJDG50 mL/min/1.74y5Zfqutyhrrq low>=60The [facility] CenterComment on above:Performed By: #### BMP #### [facility] Laboratory [address] [address] [address] Kyle AdamsonGlucose [Mass/Vol]124 mg/dLCritically fwfk23-147Pdo [facility] CenterComment on above:Performed By: #### BMP #### [facility] [address] [address] [address] Kyle AdamsonPotassium [Moles/Vol]4.3 mmol/LNormal3.5-5.1[facility] Comment on above:Performed By: #### BMP #### [facility] [address] [address] [address] Kyle AdamsonSodium [Moles/Vol]136 mmol/CIepczr805-978Ktr [facility] Comment on above:Performed By: #### BMP #### [facility] [address] [address] [address] Kyle AdamsonUrea nitrogen [Mass/Vol]31.0 mg/dLCritically high7.0-18.0[facility] HospitalComment on above:Performed By: #### BMP #### [facility] [address] [address] [address] Kyle Tillman nitrogen/Creatinine [Mass ratio]18.8 mg/mgNormalThKettering Health Washington TownshipComment on above:Performed By: #### BMP #### [facility] [address] [address] [address] Kyle AdamsonCT ABD/PELV W CONon 61-78-5500KL ABD/PELV W CONEXAMINATION: CT ABD/PELV W CON, [...] Electronically authenticated by: TERRA GUNTER Date: 2022-05-31 07:13NormParkwood Hospitale [facility] CenterCREATININEon 19-45-7422Czvpeeixsm [Mass/Vol]0.95 mg/dLNormal 0.70-1.30[facility] HospitalComment on above:Performed By: #### CREA #### [facility] Laboratory [address] [place] [address] Dr. Kyle HoltGFR-AF NORWEGIAN>60Normal>=60The [facility] CenterComment on above:Performed By: #### CREA #### [facility] Laboratory [address] [place] [address] Dr. Kyle HoltGFR-NON AF NORWEGIAN>60Normal>=60The [facility] CenterComment on above:Performed By: #### CREA #### [facility] Laboratory [address] [place] [address] Dr. Wright ChangPA Sinus w/o Contrast*on 40-05-0054DU Sinus w/o Contrast*CLINICAL HISTORY: Sinus drainage. No [...] signed by Elda Mills on 02/08/2022 0855NormalNorthern [place] Medical SpecialistBasic Metabolic Panelon 81-47-8172Gjefb gap [Moles/Vol]17 mmol/ZKghtnh92-67Bbsbfcri [place] [facility] SpecialistComment on above:Result Comment: Effective 07/30/2019 reference range changed.Performed By: #### BMP #### [facility] [address], [place] [id number] [Mass/Vol]9.6 mg/dLNormal8.6-10.2[facility] SpecialistComment on above:Performed By: #### BMP #### [facility] [address], [place] [id number] [Moles/Vol]103 mmol/AMpkdbz03-603Orqzynui [place] Medical SpecialistComment on above:Performed By: #### BMP #### [facility] [address], [place] [id number] [Moles/Vol]23 mmol/AAnynyi08-75Gumqtybq [place] [facility] SpecialistComment on above:Performed By: #### BMP #### [facility] [address], [place] [id number] [Mass/Vol]0.9 mg/dLNormal0.7-1.4Nortreunion rehabilitation hospital peorian [facility] SpecialistComment on above:Performed By: #### BMP #### [facility] [address], [place] [id number] mL/min/1.84v7Dkyaay>60NortUC Medical Center SpecialistComment on above:Performed By: #### BMP #### [facility] [address], [place] [id number] mL/min/1.78m1Rxhjgo>60NortCherrington Hospital Medical SpecialistComment on above:Performed By: #### BMP #### [facility] [address], [place] [id number] [Mass/Vol]113 mg/aYYduu03-55Slfovvek [place] Medical SpecialistComment on above:Result Comment: For FASTING Glucose --- ADA reference ranges: Normal 65-99 mg/dl Prediabetes 100-125 Diabetes >/= 126Performed By: #### BMP #### [facility] [address] [place], [place] [id number] [Moles/Vol]5.0 mmol/LNormal3.5-5.5[facility] SpecialistComment on above:Result Comment: Specimen is hemolyzed. Results may be affected.Performed By: #### BMP #### [facility] [address], [place] [id number] [Moles/Vol]138 mmol/MMsuvwq824-804Vjwiqdbp [facility] SpecialistComment on above:Performed By: #### BMP #### [facility] [address], [place] [id number] nitrogen [Mass/Vol]14 mg/dLNormal7-25[facility] SpecialistComment on above:Performed By: #### BMP #### [facility] [address], [place] [id number] Vital Signs Date TimeVital SignValuePerforming DhbgougcxLqihcsbz51-72-2764 10:41-0500Body ieoamh925.42 cmBenjamin Ball DO Work Phone: [phone]11-04-2025 10:41-0500 Body mass index (BMI) [Ratio]35.2 kg/b0Nfoymtma Ball DO Work Phone: [phone]11-04-2025 10:41-0500 Body uqcnqv195.22 kgBenjamin Ball DO Work Phone: [phone]11-04-2025 10:41-0500 Diastolic blood nsweqxmj41 mm[Hg]Mark Ball DO Work Phone: [phone]11-04-2025 10:41-0500 Heart rate82 /minBenjamin Ball DO Work Phone: [phone]11-04-2025 10:41-0500 Respiratory rate12 /minBenjamin Ball DO Work Phone: [phone]11-04-2025 10:41-0500 Systolic blood cxukoouf845 mm[Hg]Mark Ball DO Work Phone: [phone]10-14-2025 10:55-0400 Body uovsoy627.42 cmBenjamin Ball DO Work Phone: [phone] [place], [place] [address]10-14-2025 10:55-0400 Body mass index (BMI) [Ratio]35.8 kg/x1Jwbnbmco Ball DO Work Phone: [phone] [place], [place] 5263210-14-2025 10:55-0400 Body cpgoff996.15 kgBenjamin Ball DO Work Phone: [phone] [place], [place] [address]10-14-2025 10:55-0400 Diastolic blood cyjleqmp68 mm[Hg]Mark Ball DO Work Phone: [phone]10-14-2025 10:55-0400 Heart rate79 /minBenjamin Ball DO Work Phone: [phone] [place], [place] [address]10-14-2025 10:55-0400 Respiratory rate12 /minBenjamin Ball DO Work Phone: [phone] [place], [place] [address]10-14-2025 10:55-0400 Systolic blood mm[Hg]Mark Ball DO Work Phone: [phone] [place], [place] 5263208-20-2025 08:45-0400 Body mass index (BMI) [Ratio]36.41 kg/o7Ndkbgs Tez DO Work Phone: [phone] [place], [place] [address]Giqfirboqp22-41-0223 08:45-0400Body tkvejx266.19 kgLeanne Tez DO Work Phone: [phone] [place], [place] [address]Rjbzradivy28-78-1031 08:45-0400Diastolic blood tktkeqrl91 mm[Hg]Jen Tez DO Work Phone: [facility] CenterVawdokebxs51-08-8317 08:45-0400Heart rate77 /min Jen Tez DO Work Phone: [facility] CenterWsbqbxxpcw33-83-6278 08:45-5411NtP6% (BldA) [Mass fraction]95 %Jen Tez DO Work Phone: [facility] CenterQzyozgmyeu86-63-1850 08:45-0400Systolic blood elruvihz805 mm[Hg]Jen Tez DO Work Phone: [phone]-[facility] CenterKwapkfbojo51-99-7448 09:29-0400Body buxqbf221.42 cmBenjamin Ball DO Work Phone: [facility]07-08-2025 09:29-0400 Body mass index (BMI) [Ratio]36.1 kg/n1Kpqqhxgr Ball DO Work Phone: [facility]07-08-2025 09:29-0400 Body kroaau336.28 kgBenjamin Ball DO Work Phone: [facility]06-25-2025 09:00-0400 Body mass index (BMI) [Ratio]36.41 kg/l0Mhvchq Tez DO Work Phone: [phone] [place], [place] [address]Bfflyddrwh25-91-5752 09:00-0400Body krzjyz868.19 kgLeanne Tez DO Work Phone: [phone]-[facility] CenterTiebqpcevs09-24-9093 09:00-0400Diastolic blood ahsqkjae04 mm[Hg]Jen Tez DO Work Phone: 1(111)1-[facility] CenterEeagmphzvu68-27-4004 09:00-0400Heart rate94 /min Jen Tez DO Work Phone: [phone])[facility] CenterSggwdugvvz70-15-6595 09:00-3064ZwD0% (BldA) [Mass fraction]95 %Jen Tez DO Work Phone: [phone] CenterKulayvelak86-32-3632 09:00-0400Systolic blood ujsfwsrz685 mm[Hg]Jen Tez DO Work Phone: [phone] [place], [place] [address]Luacdcnadw25-69-1362 14:01-0400Body hcsqte915.42 cmBenjamin Ball DO Work Phone: [facility]06-16-2025 14:01-0400 Body mass index (BMI) [Ratio]36.1 kg/r9Vrmahidx Ball DO Work Phone: [facility]06-16-2025 14:01-0400 Body oksedvxvyve98.2 [degF]Mark Ball DO Work Phone: [facility]06-16-2025 14:01-0400 Body .28 kgBenjamin Ball DO Work Phone: [facility]06-16-2025 14:01-0400 Diastolic blood plpdwyqm08 mm[Hg]Mark Ball DO Work Phone: [facility]06-16-2025 14:01-0400 Heart rate83 /minBenjamin Ball DO Work Phone: [facility]06-16-2025 14:01-0400 Systolic blood tdmeozhq711 mm[Hg]Mark Ball DO Work Phone: [facility]04-11-2025 09:15-0400 Body aarspq469.4 cmPaul Biedenbach DO Work Phone: [phone] HospitalWashington [facility] Medical CenterQnewmyedgt40-40-0553 09:15-0400Body mass index (BMI) [Ratio]36.28 kg/m2Paul Biedenbach DO Work Phone: [phone] CenterYcgmosmjos56-22-9348 09:15-0400Body vmxfia223.74 kgPaul Biedenbach DO Work Phone: [phone]2025 15:56-0400Body .42 cm[facility]2025 15:56-0400Body mass index (BMI) [Ratio]37.3 kg/j2DvrzqcvetProtestant Deaconess Hospital2025 15:56-0400Body ihykfk780.48 kgPro[facility]2025 15:56-0400Diastolic blood vpilgfxp88 mm[Hg][facility]2025 15:56-0400 Heart rate80 /[facility]2025 15:56-0400 Respiratory rate12 /[facility]2025 15:56-0400 Systolic blood mm[Hg][facility]01-16-2025 10:10-0500Body emsqmt507.42 cmProtestant [facility]aconess Hospital01-16-2025 10:10-0500Body mass index (BMI) [Ratio]36.8 kg/s0DfwcftreiProtestant Deaconess Hospital01-16-2025 10:10-0500Body ijmxpl544.6 kgPro[facility]ant [facility]ess Hospital 08-09-2024 10:10-0500Diastolic blood ehpzulwl92 mm[Hg][facility]01-16-2025 10:10-0500Heart rate89 /[facility] 08-09-2024 10:10-0500Respiratory rate12 /[facility] 08-09-2024 10:10-0500Systolic blood ickaxyom109 mm[Hg][facility]05-06-2024 10:57-0400Diastolic blood druoyycg86 mm[Hg]DO Mark Ball Work Phone: [facility]05-06-2024 10:57-0400 Heart rate75 /minDO Mark Ball Work Phone: [phone]05-06-2024 10:57-0400 Respiratory rate18 /minDO Mark Ball Work Phone: [facility]05-06-2024 10:57-0400 SaO2% (BldA) [Mass fraction]98 %DO Mark Ball Work Phone: [facility]05-06-2024 10:57-0400 Systolic blood topoyphz169 mm[Hg]DO Mark Ball Work Phone: [facility]05-06-2024 09:16-0400 Body uncpzv826.42 cmDO Mark Ball Work Phone: [facility]05-06-2024 09:16-0400 Body gaooor275.56 kgDO Mark Ball Work Phone: [facility]10-23-2023 14:45-0400 Body ldoelk515.42 cmMichael Blank Other [employer] Other 10-23-2023 14:45-0400Body mass index (BMI) [Ratio] 36.15 kg/t2Rzhuvgx Blank Other [employer] Other 10-23-2023 14:45-0400Body hdtcwikilhy97.9 [degF] Mulugeta Blank Other [employer] Other 10-23-2023 14:45-0400Body kxdoxp044.29 kgMichael Blank Other [employer] Other 10-23-2023 14:45-0400Diastolic blood veymlwgh43 mm[Hg] Mulugeta Blank Other [employer] Other 10-23-2023 14:45-0400Systolic blood avnaneto160 mm[Hg] Mulugeta Blank Other [employer] Other 10-20-2023 10:30-0400Body iconue015.42 cmBenjamin Ball Other [employer] Other 10-20-2023 10:30-0400Body mass index (BMI) [Ratio] 36.62 kg/u4Cgeeflib Ball Other [employer] Other 10-20-2023 10:30-0400Body .92 kgBenjamin Ball Other [employer] Other 10-20-2023 10:30-0400Diastolic blood mm[Hg] Mark Ball Other [employer] Other 10-20-2023 10:30-0400Respiratory rate12 /minBenjamin Ball Other [employer] Other 10-20-2023 10:30-0400Systolic blood jrcjysot194 mm[Hg] Mark Ball Other [employer] Other 03-10-2023 11:30-0500Body ekenbl298.42 cmBenjamin Ball Other [employer] Other 03-10-2023 11:30-0500Body mass index (BMI) [Ratio] 36.15 kg/i5Vdxcmzfp Ball Other [employer] Other 03-10-2023 11:30-0500Body wakmyg286.29 kgBenjamin Ball Other [employer] Other 03-10-2023 11:30-0500Diastolic blood lysxlhep56 mm[Hg] Mark Ball Other [employer] Other 03-10-2023 11:30-0500Systolic blood lqinnaxc802 mm[Hg] Mark Ball Other [employer] Other 09-27-2022 10:45-0400Body tanxsu952.42 cmCameron Ditty Other [employer] Other 09-27-2022 10:45-0400Body mass index (BMI) [Ratio] 36.28 kg/c3Ucnupux Ditty Other [employer] Other 09-27-2022 10:45-0400Body pqomii794.74 kgCameroeddi Chester Other [employer] Other 09-27-2022 10:45-0400Diastolic blood whynkptz003 mm[Hg]Axel Briggs Other [employer] Other 09-27-2022 10:45-0400Systolic blood tihbwfce551 mm[Hg] Axel Briggs Other [employer] Other 07-20-2022 17:30-0400Body roanhg868.42 cmDavid Hykes Other [employer] Other 07-20-2022 17:30-0400Body mass index (BMI) [Ratio] 35.09 kg/l9Twydt Hykes Other [employer] Other 07-20-2022 17:30-0400Body esxius598.66 kgDavid Hykes Other [employer] Other Encounters Encounter DateEncounter TypeCare ProviderFacilityStart: 05-28-2025 End: 76-44-7401ivgmhsqoqnEudqlgfg Ball DO Work Phone: -[facility] ClinicStart: 05-28-2025 End: 99-97-5712Rtlqyij encounter procedureBenjamin Ball DO-[facility] Work Phone: Start: 05-07-2025 End: 63-48-0477emntltpidqQzshmdia Ball DO Work Phone: [facility] Work Phone: Start: 05-07-2025 End: 86-38-8508Rtyttvk encounter procedureBenjamin Ball DO-[facility] Work Phone: Start: 05-07-2025 End: 28-50-0133Nkiyloq encounter statusBeeddisteven Wheatley [facility] Hospitaltart: 03-13-2025 End: 63-00-5874Frhvte Justina Reagan DO Work Phone: [facility] FNR PULMStart: 03-13-2025 End: 50-73-2033Hexbfc flowsHiren Reagan DO Work Phone: [facility] FNR PULMStart: 03-13-2025 End: 29-19-4973Msyvys outpatient visit 25 minutesJen Reagan DO Work Phone: [facility] FNR PULMComment on above:Chronic obstructive pulmonary disease, unspecified COPD type (HCC) (Primary Dx); Cigarette smoker; HypersomnolenceStart: 01-29-2025 End: 98-77-1469nhybzlnawaBubsurdh [facility] Work Phone: [facility] Work Phone: Start: 01-29-2025 End: 65-01-7681Dtpakox encounter Neva Hickman [facility] Work Phone: Start: 01-16-2025 End: 75-59-2858Mkzddvdarrius Reagan DO Work Phone: [facility] FNR PULMStart: 01-16-2025 End: 45-59-7833Emrooh flowsHiren Reagan DO Work Phone: [facility] FNR PULMStart: 01-16-2025 End: 12-07-1155Rtduli outpatient new 45 minutesJen Reagan DO Work Phone: [facility] FNR PULMComment on above:Chronic obstructive pulmonary disease, unspecified COPD type (HCC) (Primary Dx); Cigarette smokerStart: 01-16-2025 End: 68-83-2158jetnqwlngyNCNXAP K STRACKNot AvailableStart: 01-07-2025 End: 78-37-1009Mlrldtt encounter statusJen Reagan DO Work Phone: [facility] HealthcareStart: 01-07-2025 End: 64-39-7993Uiixfyd encounter procedureMulugeta Bella MD-[facility] Work Phone: Start: 17-81-3110Vbq-patient / Non-visitOutside Provider-[facility] Work Phone: Start: 12-25-2024 End: 67-28-3001Ijnqhb flowsheetEmxenia Toro MD Work Phone: [facility] SWS DERMStart: 12-25-2024 End: 69-04-9776Fqdaaz flowsheetEmxenia Toro MD Work Phone: [facility] SWS DERMStart: 12-25-2024 End: 30-81-3242Anpdra outpatient visit 25 minutesEmxenia Toro MD Work Phone: [facility] SWS DERMComment on above:Tinea manuum (Primary Dx); Skin tag; Neoplasm of unspecified behavior of bone, soft tissue, and skin; Actinic keratosisStart: 12-25-2024 End: 44-19-5656rkakeudsfiWIAYF A PETITTINot AvailableStart: 12-18-2024 End: 72-25-5794Ldqkvaoro encounterBenjamin E Ball DO Work Phone: noms FNR FMStart: 09-08-8591baitrqkpumJetukdwfcOhioHealth Riverside [facility] Work Phone: Start: 84-47-2168Kyq-patient / Non-visitFirin[facility] Professional Co Work Phone: Start: 11-02-2024 End: 27-99-5976Ophacc flowsheetMasonul S Biedenbach DO Work Phone: noms ENT SANDUSKYStart: 11-02-2024 End: 79-48-8253Gdimal flowsheetPaul S Biedenbach DO Work Phone: noms ENT SANDUSKYStart: 11-02-2024 End: 11-78-8557gqjuesxragFEVO S BIEDENBACHNot AvailableStart: 11-02-2024 End: 19-77-0637Snlkgq outpatient visit 25 minutesPaul S Biedenbach DO Work Phone: noms ENT SANDUSKYComment on above:Chronic cough (Primary Dx); Chronic rhinitis; Tobacco abuse; Laryngopharyngeal reflux (LPR)Start: 55-21-0066Vhl-patient / Non-visitEcu [facility] Physician GroupMulticare [facility] Professional [facility]t Work Phone: Start: 10-17-2024 End: 26-54-8889yanzpnquzyMbdvjbqzxBrown [facility] Work Phone: Start: 10-17-2024 End: 59-73-5263Couqxdd encounter procedureE[facility] Physician [facility] Work Phone: Start: 08-14-2024 End: 78-62-0248Xcnfyt flowsheetNatalie A Felter CUSTOMER ENGINEERING SPECIALIST-CAN WASHER Work Phone: noms [facility] DERMStart: 08-14-2024 End: 96-87-0343Lentuk flowsheetNatalie A Felter CUSTOMER ENGINEERING SPECIALIST-CAN WASHER Work Phone: noms [facility] DERMStart: 08-14-2024 End: 23-86-7882Pjrahn outpatient visit 10 minutesNatalie A Felter CUSTOMER ENGINEERING SPECIALIST-CAN WASHER Work Phone: noms [facility] DERMComment on above:Tinea manusStart: 08-14-2024 End: 14-58-4092xszumxcllvAIDALEJ A FELTERNot AvailableStart: 08-09-2024 End: 53-47-9715Bebondk encounter procedureEcu [facility] Phys[facility] GroupM[facility] Work Phone: Start: 06-14-2024 End: 39-54-8365Xvhqpt flowsheetNatalie A Felter CUSTOMER ENGINEERING SPECIALIST-CAN WASHER Work Phone: NOMS SWS DERMStart: 06-14-2024 End: 17-13-8946Qatctw flowsheetNatalie A Felter CUSTOMER ENGINEERING SPECIALIST-CAN WASHER Work Phone: NOMS SWS DERMStart: 06-14-2024 End: 08-35-8253Klzdtrfxi encounterNatalie A Felter CUSTOMER ENGINEERING SPECIALIST-CAN WASHER Work Phone: NOMS SWS DERMStart: 06-14-2024 End: 22-52-3731Iokvvj outpatient visit 15 minutesNatalie A Felter CUSTOMER ENGINEERING SPECIALIST-CAN WASHER Work Phone: NOMS SWS DERMComment on above:Tinea manus; High risk medication use; Other atopic dermatitisStart: 06-14-2024 End: 81-30-6736uselzgkgwuIKBDVNF A FELTERNot AvailableStart: 05-31-2024 End: 22-25-5388Amwfpj flowsheetNatalie A Felter CUSTOMER ENGINEERING SPECIALIST-CAN WASHER Work Phone: NOMS SWS DERMStart: 05-31-2024 End: 76-22-2649Qgifuz flowsheetNatalie A Felter CUSTOMER ENGINEERING SPECIALIST-CAN WASHER Work Phone: NOQL SWS DERMStart: 05-31-2024 End: 30-28-4169Oplxol outpatient visit 15 minutesNatalie A Felter CUSTOMER ENGINEERING SPECIALIST-CAN WASHER Work Phone: NOKY SWS DERMComment on above:Tinea manus (Primary Dx); Actinic keratosis; Other atopic dermatitisStart: 05-31-2024 End: 55-32-4659llpygvqwyyPCUWDFS A FELTERNot AvailableStart: 05-17-2024 End: 01-52-1106Muntse flowsheetNatalie A Felter CUSTOMER ENGINEERING SPECIALIST-CAN WASHER Work Phone: NOMS SWS DERMStart: 05-17-2024 End: 49-39-9268Hohxtd flowsheetNatalie A Felter CUSTOMER ENGINEERING SPECIALIST-CAN WASHER Work Phone: NOMS SWS DERMStart: 05-17-2024 End: 81-86-5949Wmfmab outpatient visit 25 minutesNatalie A Felter CUSTOMER ENGINEERING SPECIALIST-CAN WASHER Work Phone: noms [facility] DERMComment on above:Tinea manus (Primary Dx); Encounter for removal of suturesStart: 05-17-2024 End: 78-21-5482heuliqduotPBGYIPK A FELTERNot AvailableStart: 05-07-2024 End: 90-20-2091Qyrvzh flowsheetNatalie A Felter CUSTOMER ENGINEERING SPECIALIST-CAN WASHER Work Phone: noms SWS DERMStart: 05-07-2024 End: 35-52-2022Vqrraz flowsheetNatalie A Felter CUSTOMER ENGINEERING SPECIALIST-CAN WASHER Work Phone: noms SWS DERMStart: 05-07-2024 End: 70-36-6614Bgffvco encounter procedureNatalie A Felter CUSTOMER ENGINEERING SPECIALIST-CAN WASHER Work Phone: noms SWS DERMComment on above:Rash and other nonspecific skin eruptionStart: 05-07-2024 End: 45-54-3609yiqbuyhhagEVFZYDQ A FELTERNot AvailableStart: 83-11-7420Kbsmowy encounter statusSt. Elizabeth Hospitaltart: 11-28-2023 End: 92-66-8393uvpwzugskmRyuylgv J DittyFacility:St. [facility] Hospitaltart: 23-71-0279Ufe-patient / Non-visitDO Mark Wheatley Work Phone: [facility] Work Phone: Start: 11-28-2023 End: 37-64-8787Ufusjdcli to same day surgery centerDO Mark Abdelrahman Work Phone: [facility] Work Phone: Start: 11-28-2023 End: 52-03-8204tmlqhcvbxlIE Mark Abdelrahman Work Phone: [facility] Work Phone: Start: 08-29-2023 End: 34-54-2137hbxfwinyhpFuqlzbpr Ball Other [facility] [employer] Other Start: 56-45-2534Ufivon outpatient visit 15 minutes Mark BallFPG [facility] ClinicStart: 08-25-2023 End: 16-29-9206palmodsuinZnlnqjzq Ball Other [employer] Other Start: 51-08-3403Epfpea outpatient visit 15 minutes Mark BallFPG [facility] ClinicStart: 05-16-2023 End: 00-95-9944junmfibwloFpqgfra Blank Other [facility] [employer] Other Start: 62-76-8554Athirf outpatient visit 25 minutes Mulugeta BlankFPG Infectious DiseaseStart: 05-13-2023 End: 08-41-0914cbojtkuzzbZdyzacqb Ball Other [facility] [employer] Other start: 11-98-2313Jnlirz outpatient visit 25 minutes Mark BallFPG [facility] ClinicStart: 05-02-2023 End: 81-29-4138zjiigjsookJauociz Blank Other [facility] [employer] Other Start: 49-11-9399Deeqojlni encounterMichael BlankFPG Infectious DiseaseStart: 04-28-2023 End: 42-94-6370uoighuidalMpywdvvl Ball Other [facility] [employer] Other Start: 21-04-4192Izjrqgirl encounterBenjamin BallFPG [facility] ClinicStart: 04-20-2023 End: 25-33-1347rccleaccmySgzlqymh Ball Other [employer] Other start: 58-65-2111Lwjtffsta encounterBenjamin BallFPG [facility] ClinicStart: 03-31-2023 End: 37-72-8863tpkrvzvdlrRrcgstba Ball Other [facility] [employer] Other start: 92-31-5735Jrxsedatu encounterBenjamin BallFPG [facility] ClinicStart: 01-26-2023 End: 56-74-1090ueckttxvvhPuwweraz Ball Other [employer] Other Start: 96-17-5895Zhbvnnnqb for general adult medical examination without abnormal findingsBenjamin BallFPG [facility] ClinicStart: 70-88-2750Vvsudvvny encounterBenjamin BallFPG [facility] ClinicStart: 11-29-2022 End: 95-99-3840ohzsypkvxoZvszvzrd Ball Other [employer] Other Start: 63-46-9993Drtfge outpatient visit 15 minutes Mark BallFPG [facility] ClinicStart: 10-01-2022 End: 18-38-5165bpxyjxvofyEtktpvey Ball Other [employer] Other Start: 26-85-0868Wvbscf outpatient visit 15 minutes Mark BallFPG [facility] ClinicStart: 61-70-9828Xxepkuvkg encounterBenjamin BallFPG [facility] ClinicStart: 09-27-2022 End: 10-96-6329fbpceyvxfuBU MARK BALLFacility:R8Pqtuv: 09-24-2022 End: 44-07-5926ozwmyfmdtuReondafa Ball Other [employer] Other Start: 46-50-4818Fpixwv outpatient visit 15 minutes Mark BallFPG [facility] ClinicStart: 09-06-2022 End: 45-96-4052woccqarqowElcxoygo Ball Other [employer] Other Start: 88-52-9083Snzaiv outpatient visit 15 minutes Mark BallFPG [facility] ClinicStart: 06-02-2022 End: 68-24-0193tbhllikocgKgplpdm Ditty Other [employer] Other Start: 71-04-0327Pmzetjter encounterCameron DittyFPG GastroenterologyStart: 05-28-2022 End: 70-14-4065uiilavazlsSI DOCTOR MISCFacility:E1Svsal: 05-27-2022 End: 85-57-6565pbfuoaxczrSitzqww Ditty Other [employer] Other Start: 54-57-4209Ubamgkqle encounterCameron DittyFPG GastroenterologyStart: 05-24-2022 End: 66-80-5589kqjvbamhxsVxzmwpo Ditty Other [employer] Other Start: 26-12-1243Zbkhkcjvd encounterCameron DittyFPG GastroenterologyStart: 05-10-2022 End: 82-82-9858ajwwrrcvnjTkqzlbl Ditty Other [employer] Other Start: 63-65-8003Cqcdrgaix encounterCameron DittyFPG GastroenterologyStart: 04-26-2022 End: 43-91-5115mwbzjwnwjrVxiltnh Ditty Other [employer] Other Start: 58-83-7704Hhwcxglin encounterCameron DittyFPG GastroenterologyStart: 04-20-2022 End: 36-30-0028givxhkhpskLiklwqo Ditty Other [employer] Other Start: 29-81-8773Llckjhb encounter procedureCameron DittyFPG GastroenterologyStart: 03-18-2022 End: 18-02-0653dlyqsdzisiWdvulld Ditty Other [employer] Other start: 78-89-9935Tsabjhbnr encounterCameron DittyFPG GastroenterologyStart: 03-01-2022 End: 32-23-0039tbkeyywfjoJwwvw Hykes Other [facility] [employer] Other Start: 84-25-3077Ssvaemjna encounterDavid HykesFPG GastroenterologyStart: 02-22-2022 End: 21-14-8906aspjqgzffwBumvs Hykes Other [facility] [employer] Other Start: 07-75-4934Nqkfcknfz encounterDavid HykesFPG GastroenterologyStart: 02-10-2022 End: 50-00-1283xotrkpnfdhVbfuz Hykes Other [facility] [employer] Other Start: 28-35-0475Ilymfl outpatient visit 25 minutes Terra MichellekesFPG GastroenterologyStart: 49-14-9511Npfmkztni for other preprocedural examinationDR STERLING Valle[facility]Start: 12-01-2021 End: 94-29-2439ksrpztqfafBI MARK WHEATLEYFacility:T7Bjhsy: 12-01-2021 End: 46-38-9026Usgrfmnym for other preprocedural examinationDR MARK WHEATLEY Facility:B6Lqpkt: 12-52-9193Lxncj health examinationBensmiley Wheatley Other [place] [employer] Other Procedures DateProcedureProcedure DetailPerforming ClinicianStart: 17-82-9239LLQBEGVXPBH SKIN LESIONEmily Rama Toro MD Work Phone: Start: 61-48-6758AUCI / NAIL BIOPSYEmxenia Toro MD Work Phone: Start: 28-16-3338BBXKYIIKZNU SKIN LESIONNatalie A Adelfoer CUSTOMER ENGINEERING SPECIALIST-CAN WASHER Work Phone: Start: 05-07-2024 End: 10-41-7902AVNS / NAIL BIOPSYNatalie Rama Escobar CUSTOMER ENGINEERING SPECIALIST-CAN WASHER Work Phone: Start: 79-95-5110EhffzuzrklsTO Mark Wheatley Work Phone: Start: 00-19-7438Isamjst examination of patient Mark Wheatley Other Start: 53-15-9411Mgysdmxk mellitus screeningBeirwin Wheatley Other Start: 56-80-9946Bhyjtllmisyrwh screeningBensteven Wheatley Other Start: 79-33-1906Nnougqlcb for malignant neoplasm of colonBensteven Wheatley Other Start: 35-83-5404Qggzekxni for malignant neoplasm of prostateBensteven Wheatley Other Depression screeningMark Wheatley Other Screening for malignant neoplasm of prostateBensteven Wheatley Other Plan of Treatment DateCare ActivityDetailAuthorStart: 55-01-3313Hcsmwrzcz for malignant neoplasm of colonNOMS HealthcareStart: 08-15-2025 End: 42-47-5096Nfaiffc encounter procedureNOMS SWS DERMStart: 06-07-2025 End: 54-26-6174Gcsjsry encounter maoihubml12/14/2025 9:45 AM EST Office Visit N[facility] ELIEL [facility]MAN [address] [place] [address] Jen Reagan, [address] [place] [address] NOMS FNR PULMStart: 03-12-5827Jchnrwvvf vaccinationNOMS HealthcareStart: 03-13-2025 End: 50-41-2090Jceywvf encounter procedureNOMS FNR PULMComment on above:Arrived Start: 02-11-2025 End: 31-52-6716Ufocbmo encounter fgmivlstz61/21/2025 9:15 AM EDT Office Visit [facility] [address] [place] [address] [place] [phone] Sterling Cardona, [address] [place] [address] NOMS ENT SANDUSKYStart: 01-16-2025 End: 19-05-2354Jpqopab encounter procedureNOMS FNR PULMComment on above:Arrived Start: 12-25-2024 End: 20-23-0941Xazmusk encounter enqitejqo02/03/2025 11:00 AM EDT Office Visit [facility] DERM [address] [place] [address] Chelsy Toro MD [address] [place], [place] [id number] ArrivedNOMS SWS DERMComment on above:ArrivedStart: 79-43-3396Rzzwzfc referralWright-Patterson Medical Center Work Phone: Start: 11-02-2024 End: 69-99-5765Rkepvacrb function reportPulmonary Function Test Imaging Routine Chronic rhinitis Chronic cough Expected: 11/02/2024 (Approximate), Expires: 11/02/2025[facility] Work Phone: comment on above:Expected: 11/02/2024 (Approximate), Expires: 11/02/2025Start: 08-14-2024 End: 85-40-6635Skltvzt encounter zbfbwipqn78/21/2025 10:10 AM EST Office Visit [facility] DERM [address] [place] [address] Sulma Escobar APRN-BRYSON [address] [place] [address] ArrivedNOMS SWS DERMComment on above: ArrivedStart: 07-11-2024 End: 79-30-3170Javwvld encounter aicnclrrl46/18/2024 9:25 AM EST Office Visit [facility] DERM [address] [place] [address] Sulma Escobar, CUSTOMER ENGINEERING SPECIALIST-CAN WASHER [address] [place] [address] NOMS SWS DERMStart: 07-05-2024 End: 70-96-5148Eooyogx aminotransferase [Enzymatic activity/volume] in Serum or PlasmaALT Lab Routine Tinea manus High risk medication use Expected: 07/05/2024 (Approximate), Expires: 06/14/2025[facility] Work Phone: comment on above:Expected: 07/05/2024 (Approximate), Expires: 06/14/2025Start: 07-05-2024 End: 32-25-0764Emnyufbse aminotransferase [Enzymatic activity/volume] in Serum or PlasmaAST Lab Routine Tinea manus High risk medication use Expected: 07/05/2024 (Approximate), Expires: 06/14/2025[facility] HealthcareComment on above: Expected: 07/05/2024 (Approximate), Expires: 06/14/2025Start: 06-14-2024 End: 14-53-8448Ubsnnrb encounter procedureNOMS SWS DERMComment on above:Arrived Start: 05-31-2024 End: 86-49-2722Kmjugry aminotransferase [Enzymatic activity/volume] in Serum or PlasmaALT Lab Routine Tinea manus Expected: 05/31/2024 (Approximate), Expires: 05/31/2025[facility] Work Phone: comment on above:Expected: 05/31/2024 (Approximate), Expires: 05/31/2025Start: 05-31-2024 End: 44-80-8481Prhvtgkzy aminotransferase [Enzymatic activity/volume] in Serum or PlasmaAST Lab Routine Tinea manus Expected: 05/31/2024 (Approximate), Expires: 05/31/2025[facility] HealthcareComment on above:Expected: 05/31/2024 (Approximate), Expires: 05/31/2025Start: 05-31-2024 End: 57-04-6166Nymrohn encounter procedureNOMS SWS DERMComment on above:Arrived Start: 05-17-2024 End: 93-06-1644Oxinsod encounter procedureNOMS SWS DERMComment on above:Arrived Start: 05-07-2024 End: 07-38-4092Kkgaxwk encounter kqxozencs16/14/2024 10:25 AM EDT Office Visit [facility] DERM [address] [place] [address] Sulma Escobar APRN-CAN WASHER [address] [place] [address] ArrivedNOMS SWS DERMComment on above: ArrivedStart: 65-17-2693Vzkvyxyoi vaccinationInfluenza Vaccine (#1)[facility] HealthcareStart: 37-36-9835FaddrjusxSt. Elizabeth Hospitaltart: 1960 Screening for malignant neoplasm of colonNOMS HealthcareDermatopathology exam Dermatopathology exam Pathology and Cytology Timed Rash and other nonspecific skin eruption ReleaseUpon Ordering for 1 Occurrences starting 05/07/2024[facility] Work Phone: comment on above:Release Upon Ordering for 1 Occurrences starting 05/07/2024ermatopathology examDermatopathology exam Pathology and Cytology Timed Neoplasm of unspecified behavior of bone, soft ti ssue, and skin Release Upon Ordering for 1 Occurrences starting 12/25/2024[facility] Work Phone: comtmad on above:Release Upon Ordering for 1 Occurrences starting 12/25/2024Patient referralWright-Patterson Medical Center Work Phone: [facility] Immunizations Immunization DateImmunizationNotesCare OxwjejpjSlbfffvl80-74-5146Xuwebtncjyja Conjugate Vaccine, 20 valentBenjamin Ball DO Work Phone: [facility]04-01-2021COVID-19 Vaccine Pfizer - Documentation Purposes OnlyBenkailashmin Ball Other [facility]03-11-2021COVID-19 Vaccine Pfizer - Documentation Purposes OnlyBenkailashmin Ball Other [facility] Payers DatePayer CategoryPayerPolicy [id number] Wadena ClinicBS Member Subscriber Plan / Payer (Effective 2021-Present) Name: Matteo Hardy MemberID: [id number] Relation to Subscriber: Spouse Name: EMY HARDY Date of : 1965 (Home) Address: [address] [place] [id number] Payer ID: Not on file Type: Not on file Address: [facility] [address] [place] [id number] [id number] 2..1.193166.3.57[id number] 2..1.217222.3.57[id number] 2..1.183675.3.579.[id number] 2..1.335810.3.579.2.5[id number] 2..1.097571.3.579.[id number] 2..1.105896.3.57[id number] 2..1.848432.3.579.[id number] 2.0.1.085659.3.579.2.250717-89-7448Ucvageu6326410 2..1.644250.3.579.[id number] 2.0.1.385222.3.579.[id number] 2.0.1.675152.3.579.2.725323-86-0845YluhTuscarawas [id number] 2.0.1.709804.19Self-paySelf [id number] [id number] Social History DateTypeDetailFacilityUnknown if ever smokedNodoctors hospital of [facility] [employer] Other Start: 05-26-2023 End: 41-63-4470Knq Assigned [place] [employer] Other Start: 91-62-9777Fjmobxz smoking status NHISSmoker (finding)[facility]: 63-22-1742Krb [facility] 12-16-2022 End: 04-45-7030Wvuxubp smoking status NHISSmokes tobacco dailyNOMS Healthcare History of tobacco useCigarette SmokerNOMS HealthcareHistory of tobacco useCigar SmokerNOMS HealthcareHistory of tobacco usePassive smokerNOMS HealthcareStart: 05-26-2023 End: 36-91-8328Qhybmrkxy beverage intakeCurrent drinker of alcohol (finding)[facility] HealthcareStart: 05-26-2023 End: 29-44-3035Mftdcfpxg beverage intakeNOMS HealthcareStart: 48-96-2601Odhkzax CommentdailyNOMS HealthcareStart: 45-41-1260Tdltrw identityIdentifies as male gender (finding)[facility] HealthcareStart: 51-41-6791Dxcawr orientationHeterosexual (finding)[facility] HealthcareStart: 10-18-2024 End: 16-99-4159NxhQusw (finding)[facility] Goals DatePatient GoalDesired Activity/State Clinical Notes 12-08-2021 to 05-07-2025 Note Date & YbmtLkpxXzmegizf26-50-8098 Evaluation note* Diagnosis Onset Date Resolution Status Admit Date Hypercholesteremia acuteOctober 2024 10:33amHypertensionacuteOctober 2024 10:33am Irritable bowel syndrome with constipationacuteOctober 2024 10:33am Nicotine addictionacuteOctober 2024 10:33amObesityacuteOctober 2024 10:33amScreening PSA (prostate specific antigen)acuteOctober 2024 10:33am Wellness examinationacuteOctober 2024 10:33amAt high risk for cardiovascular diseasedeletedOctober 2024 10:33amSuspected sleep apnea deletedOctober 2024 10:33am [facility] Work Phone: 1(221) 729-131408-20-2025 History of Present illness Narrative* Jen Reagan, [...] into each nostril Daily, Disp: , Rfl: Imaenqkqpde-Adtdglowd-Moaxxp (Trelegy Ellipta) 100-62.5-25 MCG/ACT aerosol powder , [...] COPD. Jen Reagan DO documented in this encounterWashington University Medical CenterUlaqrlztod10-92-0354 History of Present illness Narrative* Jen Reagan DO - 01/16/2025 9:00 AM EDT Images from the original note were not included. Matteo Ontiveros Alyssaabiola presents today for Evaluation in regards to chronic bronchitis / cough. He was referred by his primary care provider. He is accompanied by his at today's office visit. He had previously been seen by wildlife photographer many years ago for latent TB [...] Administer 1 spray into each nostril Daily Dqljjnudwjx-Wcmudstwj-Uhxisp (Trelegy Ellipta) 100-62.5-25 MCG/ACT aerosol powder Inhale [...] COPD. Jen Reagan DO documented in this encounterWashington University Medical CenterIrnvadkelu08-56-7720 Evaluation note* Diagnosis Onset Date Resolution Status Admit Date Xerosis of skin acuteJune 2024 1:46pmIrritable bowel syndrome with constipationacuteJuly 2024 9:19am [facility] Work Phone: 1(752) 910-568906-03-2025 History of Present illness Narrative* Chelsy Toro [...] limited to risks of scarring, darker or bean snapper pigmentary changes, recurrence, incomplete removal and infection. [...] Disease Next Visit: prn documented in this encounterWashington University Medical CenterShqwrzwfqc97-11-0240 Telephone encounter Note* Telephone Encounter - Jourdan Quinterodouglas - 12/18/2024 11:55 AM EDT Vt, this is Dub Negra Brewer, I am calling for my Matteo Brewer. date is 1959. He has an appointment at the [place] [facility] on january 16. To see Dr ray was supposed to have got a PFT in [place]. But apparently the machine's been broken. So they were to have transferred everything over to [facility] so he could have it done and I just talked to [facility], they have not received any of that. So I do not know if your office needs to do it or I need to call back to the clinicthat does the pulmonary function testing and dusk and have them Redo it, but like to see if we can get him set up in [facility] to have a pulmonary function test before he sees Dr. Ray appreciate if you could call me back at [phone], thank you. [facility] Medical CenterVjonxtsbcb66-87-1926 Miscellaneous Notes* Telephone Encounter - Jourdan Quinterodouglas - 12/18/2024 11:55 AM EDT Vt, this is Chun Brewer, I am calling for my Matteo Brewer. date is 1959. He has an appointment at the [place] [facility] on january 16. To see Dr ray was supposed to have got a PFT in [place]. But apparently the machine's been broken. So they were to have transferred everything over to [facility] so he could have it done and I just talked to [facility], they have not received any of that. So I do not know if your office needs to do it or I need to call back to the clinicthat does the pulmonary function testing and dusk and have them Redo it, but like to see if we can get him set up in [facility] to have a pulmonary function test before he sees Dr. Ray appreciate if you could call me back at [phone], thank you. documented in this encounterWashington University Medical CenterRmschclpov14-63-3994 Chief complaint+Reason for visit Narrative* Chief Complaint Admit Date Referral Order November 09, 2024 1:[address] Toro January 07, 2025 1 :46pm Left sided abdominal pain January 29, 2025 9:19am Reason for Visit Admit Date Xerosis of skin January 07, 2025 1:46 pm Irritable bowel syndrome with constipati on January 29, 2025 9:19am [facility] Work Phone: 1(550) 393-710404-11-2025 History of Present illness Narrative* tSerling Cardona, DO - 11/02/2024 9:00 AM EDT [...] meal of the day documented in this encounterWashington University Medical CenterOprpnllbwa93-81-9408 Chief complaint+Reason for visit Narrative* Chief Complaint Admit Date groin pain October 17, 2024 3:3 8pm Referral Order November 09, 2024 1:1 1pm Reason for Visit Admit Date Acute diverticulitis October 17, 2024 3: 38pm Allergic rhinitis, seasonal October 17, 2024 3:38pm Irritable bowel syndrome with constipati on October 17, 2024 3:38pm [facility] Work Phone: 1(252) 400-661503-26-2025 Evaluation note* Diagnosis Onset Date Resolution Status Admit Date Acute diverticulitis acuteMarch 2024 3:38pmAllergic rhinitis, seasonalacuteMarch 2024 3:38pmIrritable bowel syndrome with constipationacuteMer[facility] 2024 3:38pm [facility] Work Phone: 1(616) 467-338001-21-2025 History of Present illness Narrative* Sulma Escobar, JARED-CAN WASHER - 08/14/2024 10:10 AM EST Images from [...] Next Visit: 1 year documented in this encounterWashington University Medical CenterYjzwmpitxo43-45-2547 Evaluation note* Diagnosis Onset Date Resolution Status Admit Date Hypertension acuteJanuary 2024 10:05amAcute bronchitis due to other specified organisms noneactiveJanuary 2024 10:05amAcute exacerbation of chronic obstructive airways diseasenoneactiveJanuary 2024 10:05amAcute diverticulitisacute October 17, 2024 3:38pmAllergic rhinitis, seasonalacuteMarch 2024 3:38pm Irritable bowel syndrome with constipationacuteMarch 2024 3:38pm [facility] Work Phone: 1(441) 933-416111-21-2024 Telephone encounter Note* Telephone Encounter - CONSTANCE Pedraza - 06/14/2024 10:24 AM EST Patient seen today in office. Would like to add Cipro 750mg BID x 10 days since I am questioning ifDoxycycline only cured one of the bacterial growths. Please check interactions [facility] CenterMknkuhypzi17-03-3489 Miscellaneous Notes* Telephone Encounter - CONSTANCE Pedraza - 06/14/2024 10:24 AM EST Patient seen today in office. Would like to add Cipro 750mg BID x 10 days since I am questioning ifDoxycycline only cured one of the bacterial growths. Please check interactions documented in this encounterWashington University Medical CenterRokrglewzk72-15-4631 History of Present illness Narrative* CONSTANCE Pedraza [...] Next Visit: 1 month documented in this encounterWashington University Medical CenterTuftgimmkc99-60-0737 History of Present illness Narrative* CONSTANCE Pedraza [...] days 2. Actinic keratosis (4) Left [place], Mid [place] Lip (2), Right [place] Erythematous scaly papules. Patient was counseled regarding [...] limited to risks of scarring, darker or bean snapper pigmentary changes, recurrence, incomplete removal and infection. [...] tenderness Cryotherapy, skin lesion - Left [place], Mid [place] Lip (2), Right [place] 3. Other atopic dermatitis Left Hand - Posterior Scaly erythematous plaques +/- dyspigmentation, lichenification, excoriations. Improved since last visit Continue Protopic as prescribed Next Visit: 2 weeks documented in this encounterWashington University Medical CenterKfmdbmdrtq11-23-9092 History of Present illness Narrative* CONSTANCE Pedraza [...] Next Visit: 2 weeks documented in this encounterWashington University Medical CenterKdesmlpmjx55-35-7370 History of Present illness Narrative* CONSTANCE Pedraza [...] other nonspecific skin eruption Left Dorsal Hand Holladay patches and plaques Vikor tissue culture taken [...] Visit: 10 days S/R documented in this encounterWashington University Medical CenterSrwrbrpslc26-86-8876 History and physical note Author Axel Briggs [facility] November 28, 2023 10:09amNote Date/TimeMay 2023 10:10am[place] [address] Gastroenterology H&P Signed Patient: Matteo Hardy MR#: [id number] : 1960 Acct:[id number] Age/Sex: 63 / M Adm Date: 4 Loc: Room: Type: [facility] Attending Dr: Axel Briggs MD Copies [...] signed by Axel Briggs MD> 11/28/23 1009 [facility] Work Phone: [phone]) 997-262905-06-2024 [facility] Evaluation note* Encounter Date Diagnosis Assessment [...] NS for congestion, Tylenol forpain and fever. [facility] Other 02-01-2024 Evaluation note* Encounter Date Diagnosis Assessment Notes Treatment Notes Treatment Clinical Notes Aug, Acute non-recurrent maxillary si nusitis (ICD-10 - J01.00) Instructed to use Robitussin or Mucinex for cough, saline or Flonase NS for congestion, Tylenol forpain and fever. Aug,Irritable bowel syndrome with constipation (ICD-10 - K58.1)Increase dietary fiber and fluids [facility] Other 10-23-2023 Evaluation note* Encounter Date Diagnosis [...] 2 to 3 weeks after beginning it. [facility] Other 10-20-2023 Evaluation note* Encounter Date Diagnosis [...] index [BMI] 36.0-36.9, adult (ICD-10 - Z68.36) [facility] Other 09-27-2023 Evaluation note* Encounter Date Diagnosis Assessment Notes Treatment Notes Treatment Clinical Notes Mar, Mucopurulent chronic bronchitis (ICD-10 - J41.1) [facility] Other 09-07-2023 Evaluation note* Encounter Date Diagnosis Assessment Notes Treatment Notes Treatment Clinical Notes Mar, Dyspnea on exertion (ICD-10 - R0 6.09) Mar,Tobacco dependence (ICD-10 - F17.200) Mar,ost COVID-19 condition, unspecified (ICD-10 - U09.9) [facility] Other 07-05-2023 Evaluation note* Encounter Date Diagnosis Assessment Notes Treatment Notes Treatment Clinical Notes Jan, Wellness examination (ICD-10 - Z 00.00) [facility] Other 05-08-2023 Evaluation note* Encounter Date Diagnosis Assessment Notes Treatment Notes Treatment Clinical Notes November, GERD (gastroesophageal reflux di sease) (ICD-10 - K21.9) Diet instructions: Smaller portions, avoid eating and laying flat, avoid eating or drinking prior to bedtime. Weight loss. 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 Weight loss. 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 Treatment would be diet, hydration and azithromycin Sep,KI (acute kidney injury) (ICD-10 - N17.9)Hydrate, avoid NSAIDs Sep,ehydration (ICD-10 - E86.0)Hydrate [facility] Other 03-06-2023 Evaluation note* Encounter Date Diagnosis Assessment Notes Treatment Notes Treatment Clinical Notes Sep, Diarrhea, unspecified type (ICD- 10 - R19.7) [facility] Other 03-03-2023 Evaluation note* Encounter Date Diagnosis Assessment Notes Treatment Notes Treatment Clinical Notes Sep, Diarrhea of presumed infectious origin (ICD-10 - R19.7) Diet instructions reviewed. _update on Tuesdaybdominal cramping (ICD-10 - R10.9)Continue Dicyclomine. ER for increased pain, N/V/D [facility] Other 02-13-2023 Evaluation note* Encounter Date Diagnosis [...] to respiratory infections, vascular disease and cancers. [facility] Other 11-03-2022 Evaluation note* Encounter Date Diagnosis Assessment Notes Treatment Notes Treatment Clinical Notes May, Bloating (ICD-10 - R14.0) [facility] Other 10-31-2022 Evaluation note* Encounter Date Diagnosis Assessment Notes Treatment Notes Treatment Clinical Notes Apr, Enteritis (ICD-10 - K52.9) Apr,bdominal pain (ICD-10 - R10.9) [facility] Other 09-27-2022 Evaluation note* Encounter Date Diagnosis Assessment Notes Treatment Notes Treatment Clinical Notes Mar, Bloating (ICD-10 - R14.0) Mar,GERD (gastroesophageal reflux disease) (ICD-10 - K21.9)Increase Nexium to 40mg twice daily Mar,yspepsia (ICD-10 - K30) Mar,onstipation (ICD-10 - K59.00)Start Miralax powder daily. Titration dosing discussed with patient. Mar,hange in stool caliber (ICD-10 - R19.4) Mar,Left sided abdominal pain (ICD-10 - R10.9)Continue Dicyclomine prn [facility] Other 07-20-2022 Evaluation note* Encounter Date Diagnosis Assessment Notes Treatment Notes Treatment Clinical Notes Jan, Left sided abdominal pain (ICD-1 0 - R10.9) Jan,lternating constipation and diarrhea (ICD-10 - R19.8) [facility] Other 05-17-2022 History general Narrative - Reported* Type Description Date Medical History HYPERLIPIDEMIA Medical HistorySTOMACH PROBLEMS SINCE APPENDIX BURSTSurgical Historyappendectomy 1998Surgical Historybenign polpy removed from tongue and vocal cords12/08/2021 [facility] Other 05-17-2022 History general Narrative - Reported* Type Description Date Medical History HYPERLIPIDEMIA Medical HistorySTOMACH PROBLEMS SINCE APPENDIX BURSTSurgical Historyappendectomy 1998Surgical Historybenign polpy removed from tongue and vocal cords12/08/2021 Hospitalization HistorySEE SURGICAL HX [facility] Other 05-17-2022 History general Narrative - Reported* Type Description Date Medical History HYPERLIPIDEMIA Medical HistorySTOMACH PROBLEMS SINCE APPENDIX BURSTMedical History diverticulitisSurgical Lqqytsbcswodlpsfspa0317Sjcigoiv Historybenign polpy removed from tongue and vocal cords12/08/2021Hospitalization HistorySEE SURGICAL [facility] Other 05-17-2022 History general Narrative - Reported* Type Description Date Medical History HYPERLIPIDEMIA Medical HistorySTOMACH PROBLEMS SINCE APPENDIX BURSTMedical History diverticulitisSurgical Ktiozslieydzmvjmvhv8556Qthzvqfw Historybenign polpy removed from tongue and vocal cords12/08/2021urgical Historycyst removed from back of tongueHospitalization HistorySEE SURGICAL [facility] Other Evaluation noteNo InformationNort [employer] Other Evaluation noteNo assessment information available [facility] Work Phone: Evaluation note* Diagnosis Rash [...] Status Admit Date GERD (gastroesophageal reflux disease) [facility] 20[facility] 10:33amIBS (irritable bowel syndrome)acuteOctober 2024 10:33amIrritable bowel syndrome with constipationacuteOctober 2024 10:33amObesityacuteOctober 2024 10:33amScreening PSA (prostate specific antigen)acuteOctober 2024 10:33amWellness examinationacuteOctuofl health [facility] 2024 10:33am [facility] Work Phone: Hospital Discharge instructions Additional Instructions [...] years. -Follow up with PCP. -Office number [phone].[facility] Work Phone: Hospital Discharge instructionsAmbulatory Orders* Referral to Pulmonology Location: None Selected [facility] Work Phone: Reason for referral (narrative)No reason for referral information availableWright-Patterson Medical Center Work Phone: Rewart for visit Narrative* Consultation (Routine) - ClosedSpecialtyDiagnoses / ProceduresReferred By ContactReferred To Contact Pulmonary Disease / Pulmonology Diagnoses Unspecified chronic bronchitis (HCC) Chronic cough Procedures [place] UNLISTED EVALUATION AND MANAGEMENT SERVICE [facility] [address] [place] [address] Jen Reagan, DO [address] [facility] [place] [address] Phone: tel: fax: Referral IDStatusReasonStart DateExpiration DateVisits RequestedVisits [id number]// [facility] Healthcare Summary Purpose Family History Relationship [...] and content) DATE CREATED AUTHOR 02/12/2022 [place] [facility] DATE CREATED AUTHOR AUTHOR'S ORGANIZ ATION 10/01/2022 [facility] DATE CREATED AUTHOR AUTHOR'S ORGANIZ ATION 12/04/2023 [facility] DATE CREATED AUTHOR AUTHOR'S ORGANIZ ATION 01/17/2025 [facility] EPIC REASON FOR [...] DateEnd Date Mark Wheatley MD [address] [place] [address] PCP - GeneralInternal Medicine11/29/22am MemberRelationshipSpecialtyStart Date End Date Mark Wheatley MD [address] [facility] [place] [address] PCP - GeneralInternal Medicine11/29/22am MemberRelationshipSpecialtyStart Date End Date Mark Wheatley MD [address] [facility] [place] [address] PCP - GeneralInternal Medicine11/29/22am MemberRelationshipSpecialtyStart Date End Date Mark Wheatley MD [address] [facility] [place] [address] PCP - GeneralInternal Medicine11/29/22am MemberRelationshipSpecialtyStart Date End Date Mark Wheatley MD [address] [facility] [place] [address] PCP - GeneralInternal Medicine11/29/22am MemberRelationshipSpecialtyStart Date End Date Mark Wheatley MD [address] [facility] [place] [address] PCP - GeneralInternal Medicine11/29/22am MemberRelationshipSpecialtyStart Date End Date Mark Wheatley MD [address] [facility] [place] [address] PCP - GeneralInternal Medicine11/29/22am MemberRelationshipSpecialtyStart Date End Date Mark Wheatley MD [address] [facility] [place] [address] PCP - GeneralInternal Medicine11/29/22Team MemberRelationshipSpecialtyStart Date End Date Mark Wheatley MD [address] [place] [address] PCP - GeneralInternal [facility]11/29/22Team MemberRelationshipSpecialtyStart Date End Date Mark Wheatley MD [address] [place] [address] PCP - GeneralInternal Medicine11/29/22 Team [...] DateEnd Date Mark Wheatley MD [address] [place] [address] PCP - [facility]11/29/22Team MemberRelationshipSpecialtyStart Date End Date Mark Wheatley MD PCP - GeneralInternal Medicine11/29/22 Team Status: Active Member Role Status Dates Mark Wheatley DO Primary Care Provide r, Attending Provider Active Start: October 25, 2024 Team Status: Active Member Role Status Dates Mark Wheatley DO Primary Care Provide r, Attending Provider Active Start: November 09, 2024 Team MemberRelationshipSpecialtyStart DateEnd Date Mark Wheatley DO [address] [place] [address] PCP - GeneralInternal Medicine11/15/24Team MemberRelationshipSpecialtyStart Date End Date Mark Wheatley DO [address] [facility] [place] [address] PCP - GeneralB[facility] Cardon [facility] Centernal [facility]11/15/24Team MemberRelationshipSpecialtyStart Date End Date Mark Wheatley DO [address] [facility] [place] [address] PCP - GeneralB[facility] Centernal [facility]11/15/24Team MemberRelationshipSpecialtyStart Date End Date Mark Wheatley DO [address] [facility] [place] [address] PCP - GeneralInternal Medicine11/15/24Team MemberRelationshipSpecialtyStart Date End Date Mark Wheatley DO [address] [facility] [place] [address] PCP - GeneralBanner Cardon Children'S Medical Centernal Medicine11/15/24 Team Status: Active Member Role/Relationship Status [...] BE BASED ON THE PRIMARY CLINICAL RECORDS. [employer] [facility]. provides no warranty or guarantee of the accuracy or completeness of information in this document.
--- NOTE | 2025-07-03 09:26 | XR_ITS ---
The [address] [address] Patient Name: ALLYSON FARMER MRN: [id number] date: 1960 Sex: M Assigned Patient Location: LAB Current Patient Location: LAB Accession/Order Number: [id number] Exam Date: 07/03/2025 09:30 Report Date: 07/03/2025 11:07 At the request of: TOBIN WHEATLEY DO Procedure: XR hip LT 2V w/ pelvis LEFT HIP WITH AP PELVIS - 3 views COMPARISON: CT 10/25/2024 CLINICAL DATA: Left hip pain for the past 6 months in the buttock region when ambulating. No injury. AP view of the pelvis as well as AP and frog-lateral views of the left hip were obtained. No fracture or dislocation is identified. 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 The hip joint spaces are maintained. There is no significant hypertrophy. The SI joints are intact. There is mild degenerative change at the lower imaged lumbar spine. No soft tissue abnormalities are present. XR/XR hip LT 2V w/ pelvis IMPRESSION: NO ACUTE BONY FINDINGS. Impression dictated by: Niru Rodrigues M.D. 07/03/2025 11:07 AM Dictation Location: [place] [address] Electronically authenticated by: [id number] Y Date: 07/03/2025 11:07
== END 2025-07-03 09:19 | disposition home or self-care (01) ==
LOC: LAB 09:20
PROVIDERS: PCP Internal Medicine; Visit Provider Internal Medicine
DX: M25.552 Pain in left hip (principal)
CPT/HCPCS: 73502

== ENCOUNTER 2025-07-09 19:21 | Outpatient (OUT) | payer BC, SELFPAY ==
--- OUTSIDE RECORDS SUMMARY | 2020-10-23 04:30 | XMS_ITS | Continuity of Care Document ---
Author Organization [facility] Address [address] [place] [address] Phone Care Team Providers Care Windows Consultant Name Role Phone Baldemar Bryant Unavailable Unavailable Procedures Procedure Date Pfizer COVID Vaccine Admin Dose 2 COVID-19 Pfizer Pfizer COVID Vaccine Admin Dose 1 COVID-19 Pfizer Advance Directives Directive Yes / No Effective Date File Name No Information Encounters Encounter Description Practice Location Reason(s) For Visit Diagnoses Date Provider Providers Copied on Encounter [facility], [address] [place], [place], [id number], [place] tel:[phone] COVID ECHD No Information Caroi DO Mcdermott. [address] [place], [place], [id number], [place]. tel:[phone] [facility], [address] [place] [address], [id number], tel:[phone] COVID ECHD No Information Visci DO Baldemar. [address] [place], [place], [id number], [place]. tel:[phone] Family History Family Member Type Diagnosis Age At Onset No Information Immunizations Vaccine Date Status Comments Pfizer COVID administered Source: New Imm unization Record Pfizer COVID administered Source: [place] unization Record Payers Payer name Insurance type Covered libertarian ID Authoriza tion(s) [place] [id number] [place] [id number] [place] [id number] Social History Type Description Quantity Date Captured [...]
--- OUTSIDE RECORDS SUMMARY | 2025-07-09 19:27 | XMS_ITS | Clinical Summary ---
Author Organization [facility] Address [address] [place] [address] Care Team Providers Care Desulfurizer Machine Name Role Phone Mark Quick DO Primary Care Provider Allergies Active AllergyReactionsCriticalityNoted QvjzZtbpkeezBxbkdfjkysMfbaJqk79/01/2024 WphadhzsqynubQtsls63/21/2024 Severe body aches XheybnbtwkidLxqnqxc14/22/2024 Reports itching on palms and soles after 1 dose, no rash FfpycahkrowcHptcoro47/01/7709YdklzfguiwzZlroVdyvdm09/02/2023MontelukastUnknown 12/25/2024 Medications MedicationSigDispense QuantityRefillsLast FilledStart DateEnd DateStatus [...] flared, hold when clear) 60 g 1105Active Afadtlykmnb-Yitowmatk-Imfsxu (Trelegy Ellipta) 100-62.5-25 MCG/ACT aerosol powder Indications:Chronic obstructive pulmonary disease, unspecified COPD type (HCC) Inhale 1 puff Daily 60 each 5Active Yfpsqjh-Ntnmhebmkqu-Oexgcvklxe (Breztri Aerosphere) 160-9-4.8 MCG/ACT aerosol Indications:Chronic obstructive pulmonary disease, unspecified COPD type (HCC) Inhale 2 puffs in the morning and 2 puffs before bedtime. 10.7 g 505Active ezetimibe (Zetia) 10 MG tablet Daily5Active lubiprostone (Amitiza) 24 MCG capsule Daily5Active phentermine (Adipex-P) 37.5 MG tablet Daily5Active Active Problems ProblemNoted DateDiagnosed DateChronic pptmzupi28/25/2023ongenital anomaly of akfcol3912/16/20221916Tcwhfoivz62/25/2023 Resolved Problems ProblemNoted DateDiagnosed DateResolved TrllTjxeaadyq25/13/202511/ Lkpexcavgoabcdtknu33/13/202511/9968Xjlklki06OSA (obstructive sleep apnea)/ Overview (06/06/2025): AHI - 33, SpO2 - 78% Xerosis of skin/ute reegomjwwxjxpj18/16/202506/ Allergic rhinitis, aarhqbxf93/hronic cough/ Family history of colon cancer in / Overview (01/07/2025): Problem List clean-up per request of Phys. EHR Cmte Gas bloat iwfnfosq73GERD (gastroesophageal reflux disease) HypertensionHypoxia Irritable bowel syndrome with vjpfdsqognjn59Multifocal ypjqjeevh36Nicotine ebzurjlco99Screening PSA (prostate specific antigen)Wellness flbvrikqzys85/16/2025 01/07/2025hronic ckvlvbyjec77Hearing loss Immunizations ImmunizationAdministration DatesNext DuePneumococcal Conjugate PCV Family History Medical HistoryRelationNameCommentsCancerFatherDiabetesMaternal Grandfather CancerMaternal GrandmotherCancerMotherDiabetesPaternal GrandfatherRelationName StatusCommentsFatherDeceasedMaternal GrandfatherMaternal GrandmotherMotherAlive Paternal Grandfather Social History Tobacco UseTypesPacks/DayYears UsedDateSmoking Tobacco: Every DayCigarettes CigarsPassive Smoke Exposure: Current Tobacco Cessation:Ready to Q uit: No; Counseling Given: Yes Alcohol UseStandard Drinks/WeekCommentsYes3 (1 standard drink = 0.6 oz pure alcohol)dailySex and Gender InformationValueDate RecordedSex Assigned at Male04/06/2024 11:27 PM EDTLegal DigQthr4410/06/2022 7:22 PM EDTGender Identity Male04/06/2024 11:27 PM EDTSexual KvimfjjvtxvVnworilz80/13/2024 11:27 PM EDT Last Filed Vital Signs Vital SignReadingTime TakenCommentsBlood Ofryqtxi672/7608 8:45 AM EDT Vvkfg482603/13/2025 8:45 AM EDTTemperature--Respiratory Rate--Oxygen Nfoncljxrc97% 03/13/2025 8:45 AM EDTInhaled Oxygen Concentration--Rlwwhi519 kg (276 lb) 03/13/2025 8:45 AM BJTOwgsbu543.4 cm (6' 1 )11/02/2024 9:15 AM EDTBody Mass Index36.41011/02/2024 9:15 AM EDT Plan of Treatment DateTypeDepartmentCare Team (Latest Contact Info)Mdjorspchsy84/22/2026 8:35 AM ESTOffice Visit [facility] [address] [place] [address] Sulma Escobar, SINGER SONGWRITER-SPECIAL EVENTS ASSISTANT [address] [place] [address] 10/25/2025 9:45 AM EDTOffice Visit [facility] [address] [place] [address] Jen Reagan, DO [address] [place] [place] [address] Insurance Care Teams Team MemberRelationshipSpecialtyStart DateEnd Date Mark Quick, [address] [place] [address] [facility] - [facility] Hospitalnal Medicine11/15/24
--- OUTSIDE RECORDS SUMMARY | 2025-07-09 19:27 | XMS_ITS | Clinical Summary ---
Author Organization [facility] Address [address] [facility] [place] [address] Phone Care Team Providers Care Graphite Grinder Name Role Phone Unavailable Primary Care Provider Unavailabl e Social History Tobacco UseTypesPacks/DayYears UsedDateSmoking Tobacco: Never AssessedSex and Gender InformationValueDate RecordedSex Assigned at BirthNot on fileLegal Sex Male06/18/2022 11:37 AM ESTGender IdentityNot on fileSexual OrientationNot on file Plan of Treatment Not on file
--- OUTSIDE RECORDS SUMMARY | 2025-07-09 19:27 | XMS_ITS | Clinical Summary ---
Author Organization [employer] tem Address [id number] [place] [address] Care Team Providers Care Road Commissioner Name Role Phone Mark Quick DO Primary Care Provider [phone] Allergies No known active allergies Medications MedicationSigDispense [...] tablet ctive Active Problems ProblemNoted DateDiagnosed DateAllergic kiwldneg09/03/2021hronic sinusitis 10/23/2020Hearing loss10/23/2020 Social History Tobacco UseTypesPacks/DayYears [...] more drinks on one occasion?Not asked10/23/2020HQ-2AnswerDate RecordedTotal Orsrn857hildcareAnswerDate RecordedChildcareUnknown 10/22/2020mploymentAnswerDate RtephrezVmmgnwjofcPvngwdf58/31/2021urpose - Life AnswerDate RecordedPurpose and direction in fwqxXcnfwoz19/31/2021ex and Gender InformationValueDate RecordedSex Assigned at BirthNot on fileLegal SexMale 02/27/2015 11:39 AM EDTGender IdentityNot on fileSexual OrientationNot on file Last Filed Vital Signs Vital SignReadingTime TakenCommentsBlood Nwevbjqi987/8804 10:39 AM EDT Pulse--Temperature--Respiratory Rate--Oxygen Saturation--Inhaled Oxygen Concentration--Uixjrk021.6 kg (277 lb)10/23/2020 10:39 AM NSFDsicre983.4 cm (6' 1 )10/23/2020 10:39 AM EDTBody Mass Index36.55010/23/2020 10:39 AM EDT Plan of Treatment Health MaintenanceDue DateLast DoneCommentsDepression Skstgpaha90/02/1973Tobacco Hfsxvozoh54/02/1973Adult BMI Lkcyywxsm39/02/1979DTaP,Tdap and Td Vaccines (1 - Tdap)1980Zoster (Shingles) Vaccine (1 of 2)2011Influenza Vaccine 03/25/2025RSV ( or age 60+ yrs) (1 - 1-dose 75+ series)2036 [employer] Not on file Insurance * Guarantor: Matteo HardynAccojosseline TypeRelation to PatientDate of PhoneBilling AddressPersonal/VarzawRrcv1960 [id number] [address] Care Teams Team MemberRelationshipSpecialtyStart DateEnd Date Mark Quick DO [address] [place] [address] PCP - GeneralInternal Medicine11/11/20
== END 2025-07-09 19:22 | disposition home or self-care (01) ==
PROVIDERS: PCP Internal Medicine; Visit Provider Internal Medicine
DX: G47.33 Obstructive sleep apnea (adult) (pediatric) (principal)
CPT/HCPCS: 95811